=== PATIENT | male | born 1950 | race Caucasian/White ===

== ENCOUNTER 2022-07-05 02:39 | Outpatient (CLI) | payer MEDICARE, SELFPAY ==
--- OUTSIDE RECORDS SUMMARY | 2022-07-05 02:46 | XMS_ITS | Encounter Summary ---
:[address] [facility] Address [address] [place] [address] Care Team Providers Name Role Phone JanetSweetie bender Primary Care Provider Reason for Visit Auth/Cert Specialty Diagnoses / Procedures Referred By Contact Refer red To Contact Diagnoses Retinal detachment, right Procedures CT RPR COMPLEX RETINA DETACH VITRECT &MEMBRANE PEEL REPAIR, RETINAL DETACHMENT, COMPLEX, WITH VITRECTOMY AND MEMBRANE PEELING Referral ID Status Reason Start Date Expiration Date Visits Requ ested Visits Authorized [id number] 1 1 Encounter Details Date Type Department Care Team Description 02/11/2022 Hospital Encounter [facility] OR Jacky Blanchard MD [address] [place] [address] [address] [phone] [facility] Level [address] [place] [phone] (Wo rk) Social History Tobacco Use Types Packs/Day Years Used Date Smoking Tobacco: Never Smokeless Tobacco: Never Alcohol Use Standard Drinks/Week Comments Yes 3 (1 standard drink = 0.6 oz pure alcoho l) Sex Assigned at Date Recorded Not on file documented as of this encounter Last Filed Vital Signs Vital Sign Reading Time Taken Comments Blood Pressure 137/72 02/11/20221955 EDT Pulse - - Temperature 36.2 ??C (97.2 ??F) 02/11/20221955 EDT Respiratory Rate 10 02/11/20221955 EDT Oxygen Saturation 96% 02/11/20221955 EDT Inhaled Oxygen Concentration - - Weight 98.1 kg (216 lb 4.3 oz) 02/11/2022 1553 EDT Height 170.2 cm (5' 7) 02/11/2022 1553 EDT Body Mass Index 33.87 02/11/2022 1553 EDT documented in this encounter Functional Status Functional Status Response Date of Assessment Because of a physical, mental, or emotional condition, No 02/20/2018 does this person have difficulty doing errands alone such as visiting a doctor's office or shopping? Cognitive Status Response Date of Assessment Because of a physical, mental, or emotional condition, No 02/20/2018 does this person have serious difficulty concentrating, remembering, or making decisions? documented as of this encounter Discharge Instructions Discharge Instr - AVS First Jacky Kilpatrick MD - 02/11/2022 19:48 EDT Position face upright during the day Sleep right ear or left ear down, facing below horizon. Avoid sleeping head up or on your back. Avoid lifting weights over 50 pds, bending below the waist or straining for 7 days. Keep patch on the eye until tomorrow's follow-up appointment at 1 pm (5th floor ophthalmology clinic). documented in this encounter Medications at Time of Discharge Medication Sig Dispensed Refills Start Date End Date aspirin 81 mg EC tablet Take 81 mg by mouth 0 daily. lisinopriL (PRINIVIL) 30 mg Take 30 mg by mouth 0 tablet daily. metoprolol (LOPRESSOR) 25 Take 25 mg by mouth 0 mg tablet daily. pravastatin (PRAVACHOL) 40 Take 40 mg by mouth 0 mg tablet daily. documented as of this encounter Discharge Disposition Disposition Code Departure Means Destination Home or Self Care Wheelchair Home documented in this encounter H&P Notes Jacky Blanchard MD - 02/11/2022 1434 EDT In reviewing the chart, I see Po Matthews had a Pre-surgical History & Physical completed within the last 30 days. The following is a copy of that H&P note from the encounter associated with the physical. The note has been copied for review and update purposes within the scheduled perioperative encounter. Jacky Blanchard MD 02/11/2022 14:34 documented in this encounter Procedure Notes Jacky Blanchard MD - 02/11/20221947 EDTProcedure(s): CT RPR COMPLEX RETINA DETACH VITRECT &MEMBRANE PEEL Pre-Procedure Diagnose(s): Retinal detachment, right; Proliferative vitreoretinopathy of right eye; Pseudophakia, right eye Surgery date: 02/11/2022 Pre-operative diagnosis: Superior macula splitting retinal detachment, inferior proliferative vitreoretinopathy, psudophakia, right eye S/p 01/21/2022 PPV, SOR S/p 12/24/2021 CE+IOL s/p 10/10/2021 PPV, EL, SO for recurrent retinal detachment?? s/07/21/2021??SB, PPV, EL, SF6, STK for VH and RD/RT S/p 03/21/2021 and 03/28/2021 laser [address] for peripheral RD with 3 tears Post operative diagnosis: same Surgery: Pars plana vitrectomy, inferior PVR peel, superior retinectomy, fluid- air exchange, endolaser, 1000 CS silicone oil right eye Surgeon: Jacky Blanchard MD Anesthesia: Local RB with sedation Findings: Fibrotic retina overlying buckle and anterior to laser scars. Retinal detachment of fibrotic retina from 10: to 3 o'clock. Retina detachment of retinal posterior to buckle, without PVR, splitting the macula from 9 to 3 o'clock. Inferior PVR posterior to buckle at 7 o'clock. Technique: Patient was identified in the pre-operative area, informed consent having previously been obtained, discussing risks including pain, bleeding, high eye pressure, infection, inflammation, need for more surgery, loss of of vision and loss of eye. Operative eye was marked. Patient was then transported tothe operating room and laid in supine position. A time out was called to identify the patient, the operative site, and the procedure being performed. Local anesthesia was achieved with a retrobulbar block using 5 cc of lidocaine 2% and bupivacaine 0.75% 50/50 mix. The patient was positioned under the microscope and the eye was prepped with povidone iodine and draped in the usual sterile fashion for ophthalmic surgery. Appropriate exposure was achieved with the use of a lid speculum. Three trocars were inserted 3.0 mm from the limbus, one in the inferotemporal quadrant, one in the superotemporal quadrant, and one in the superonasal quadrant. The infusion port was placed through theinferotemporal trocar and visualized in the vitreous cavity prior to starting the infusion. There were no problems with the cannula placements. Vitrectomy was performed during previous surgeries and no residual vitreous was left. Careful examination of the retina through the Resight wide angle lens, using scleral indentation, revealed fibroticavascular retina overlying the buckle, anterior to the laser scars, over 360 degrees with a retinal detachment of this fibrotic retina from 10: to 3 o'clock. Retina was detached posterior to the buckle, without PVR, splitting the macula from 9 to 3 o'clock. A PVR band was visible posterior to buckle at 7 o'clock. This PVR band was peeled using the ILM forceps, removing the localized tenting of the retina there. The detached fibrotic avascular retina was removed by retinectomy with the vitreous cutter. A draining retinotomy was performed superior to the optic nerve. Fluid-air exchange was performed using a soft tip cannula, draining the subretinal fluid posterior to the buckle and obtaining retinalre-attachment. Endolaser was applied around the draining retinotomy and also 360 degrees posterior to the buckle and to the previous cerclage of laser scars. Air was then exchanged for 1000 CS siliconeoil. All 3 cannulas were removed, and each of the sclerotomies was closed using 7-0 vicryl sutures. Solumedrol and Ancef solutions were injected subconjunctivally. The lid speculum was removed, Maxitrol ointment was placed onto the eye. A patch and shield were placed for protection. The patient tolerated the procedure well without complication. Estimated Blood Loss Minimal. Total IV Fluids Per anesthesia documentation. Specimen(s) None. Complications None. documented in this encounter Nursing Notes Lisy Mathias RN - 02/11/2022 9124 EDT Preop Covid DOS screening questionnaire Please document by exception (only check those that apply). Have you had any of the following symptoms recently? None Yes Chronic ? Cough Shortness of breath or difficulty breathing Fever Chills Fatigue Muscle or body aches Severe Headache New loss of taste or smell Sore throat Congestion or runny nose Rash Nausea, vomiting, or diarrhea (rare in adults. More common in children) Have you had any exposure to a COVID + person since your covid test (in the last 5 days)? No Have you tested positive in the last 90 days for COVID by PCR and or home test? No Were you covid tested? No, N/A When: Results: Vaccinated: YES See admission vital signs documentation for admission temperature. documented in this encounter Plan of Treatment Upcoming Encounters Date Type Specialty Care Team Description 07/12/2022 Post-op Visit Ophthalmology Jacky Blanchard MD [address] [phone] (Wo rk) 07/18/2022 Office Visit Urology Jose Carlos Fisher MD [address] [phone] (Wo rk) documented as of this encounter Procedures Procedure Name Priority Date/Time Associated Diagnosis Comme nts REPAIR, RETINAL 02/11/2022 17:41 EDT Retinal detachmen t, DETACHMENT, COMPLEX, right WITH VITRECTOMY AND MEMBRANE PEELING Special Needs Ask if he wants ICG for the membrane peel documented in this encounter Visit Diagnoses Diagnosis Retinal detachment, right - Primary Unspecified retinal detachment documented in this encounter Admitting Diagnoses Diagnosis Retinal detachment, right Unspecified retinal detachment documented in this encounter Administered Medications Inactive Administered Medications - up to 3 most recent administrations Medication Order MAR Action Action Date Dose Rate Site cyclopentolate (CYCLOGYL) 1 % Given 02/11/2022 17:11 EDT 1 Drop ophthalmic solution 1 Drop 1 Drop, right eye, PRE-OP Q 5 MINUTES, 3 doses, Starting on Fri02/11/22 at 1651, Until Fri02/11/22 at 1711, Other, Routine, Preprocedure Given 02/11/2022 17:06 EDT 1 Drop Given 02/11/2022 17:01 EDT 1 Drop lactated ringers (LR) infusion Restarted 02/11/2022 17:52 EDT 30 mL/hr, intravenous, CONTINUOUS, Starting on Fri02/11/22 at 1615, Until Fri02/11/22 at 2210, Routine, Preprocedure New Bag 02/11/2022 16:26 EDT 30 mL/hr 30 mL/hr phenylephrine (MYDFRIN) 2.5 % ophthalmic Given 02/11/2022 17:12 EDT 1 Drop solution 1 Drop 1 Drop, right eye, PRE-OP Q 5 MINUTES, 3 doses, Starting on Fri02/11/22 at 1651, Until Fri02/11/22 at 1712, vitreoretinal surgery, Routine, Preprocedure Given 02/11/2022 17:07 EDT 1 Drop Given 02/11/2022 17:02 EDT 1 Drop documented in this encounter Discontinued Medications Medication Sig Discontinue Reason Start Date End Date ofloxacin (OCUFLOX) 0.3 % Place 1 Drop into 01/22/2022 02/11/2022 ophthalmic solution the right eye 4 times daily. prednisoLONE (PRED FORTE) Place 1 Drop into 01/22/2022 02/11/2022 1 % ophthalmic suspension the right eye 4 times daily. documented as of this encounter Active and Recently Administered Medications Times are shown in EDT. Continuous Medication Order 02/09/2022 02/10/2022 02/11/2022 lactated ringers (LR) infusion 1 626 (New Bag - Provider: Lisy Mathias RN)1751 (Paused - Provider: CHETAN Randall - Comment: Switch to gravity)175 (Restarted - Provider: CHETAN Randall)1940 (Anesthesia Volume Adju stment - Provider: CHETAN Randall) at 30 mL/hr, 30 mL/hr, intravenous, CONT INUOUS, Starting on Fri02/11/22 at 1615, Until Fri02/11/22 at 2210, Routine, Preprocedure PRN Medication Order 02/09/2022 02/10/2022 02/11/2022 Bacitracin Zinc-Polymyxin B 500-10,000 unit/gram ointment ointme nt (CANCELED) 1923 (Given - Provider: Jacky Blanchard MD - Comment: 1 application) PRN, Starting on Fri02/11/22 at 1924, Until Fri 2 at 1936, Intraprocedure balanced salt solution inrrigation solut ion (BSS PLUS) 500 mL, EPINEPHrine HCl (PF) (ADRENALIN) 0.5 mL irrigation (CANCELED) 1819 (Given - Provider: Jacky Blanchard MD - Comment: PART II-[id number] ------[id number]) PRN, Starting on Fri02/11/22 at 1820, Un til Fri02/11/22 at 193, Routine, Intraprocedure chondroitin-sodium hyaluronate (VISCOAT) ophthalmic solution (CA NCELED) 1819 (Given - Provider: Jacky Blanchard MD - Comment: [id number]) PRN, Starting on Fri02/11/22 at 1820, Un til Fri02/11/22 at 193, Routine, Intraprocedure cyclopentolate (CYCLOGYL) 1 % ophthalmic solution 1 Drop (COMPLE WYATT) 1700 (Given - Provider: Monica Dunham, STUART)170 (Given - Provider: Monica Dunham RN)171 (Given - Provider: Monica Dunham RN) 1 Drop, right eye, PRE-OP Q 5 MINUTES, 3 doses, Starting on Fri02/11/22 at 1651, Until Fri02/11/22 at 1711, Other, Routine, Preprocedure lidocaine 20 mg/mL (2 %) 5 mL, bupivacai ne (PF) (MARCAINE) 0.75 % (7.5 mg/mL) 5 mL (CANCELED) 1820 (Given - Provid er: Jacky Blanchard MD - Comment: [id number] -------[id number]) PRN, Starting on Fri02/11/22 at 1821, Un til Fri02/11/22 at 1937, Routine, Intraprocedure methylPREDNISolone sod suc(PF) (SOLU-MEDROL) injection (CANCELED ) 1919 (Given - Provider: Jacky Blanchard MD - Comment: [id number] 0.3ml given) PRN, Starting on Fri02/11/22 at 1920, Un til Fri02/11/22 at 1937, Routine, Intraprocedure phenylephrine (MYDFRIN) 2.5 % ophthalmic solution 1 Drop (COMPLE WYATT) 1701 (Given - Provider: Monica Dunham, STUART)170 (Given - Provider: Monica Dunham, RN)171 (Given - Provider: Monica Dunham, STUART) 1 Drop, right eye, PRE-OP Q 5 MINUTES, 3 doses, Starting on Fri02/11/22 at 1651, Until Fri02/11/22 at 1712, vitreoretinal surgery, Routine, Preprocedure sterile water (PF) 2.5 mL with ceFAZolin (ANCEF) 1 g (CANCELED) 1920 (Given - Provider: Jacky Blanchard MD - Comment: [id number]) PRN, Starting on Fri02/11/22 at 1831, Un til Fri02/11/22 at 1937, Routine, Intraprocedure documented in this encounter Orders Medications Ordered That Might Not Have Count Last Ord ered Date First Ordered Date Been Administered Bacitracin Zinc-Polymyxin B 500-10,000 2 unit/gram ointment ointment balanced salt solution inrrigation 02/11/2022 solution (BSS PLUS) 500 mL, EPINEPHrine HCl (PF) (ADRENALIN) 0.5 mL irrigation chondroitin-sodium hyaluronate (VISCOAT) 022 ophthalmic solution lidocaine (PF) 10 mg/mL (1 %) injection 2 2021 mg lidocaine 20 mg/mL (2 %) 5 mL, bupivacaine 02/11 (PF) (MARCAINE) 0.75 % (7.5 mg/mL) 5 mL methylPREDNISolone sod suc(PF) 02/11/2022 (SOLU-MEDROL) injection sterile water (PF) 2.5 mL with ceFAZolin 022 (ANCEF) 1 g Discharge Count Last Ordered Date First Ordered Date DISCHARGE PATIENT 02/11/2022 documented in this encounter Care Teams Sanitor Relationship Specialty Start Date End Date Janet, Sweetie PCP - General Family Medicine - Primary 12/18/21 04/09/22 [address] [facility] [place] [phone] documented as of this encounter
--- OUTSIDE RECORDS SUMMARY | 2022-07-05 02:46 | XMS_ITS | Encounter Summary ---
:1950 Author Organization [facility] Address [address] [place] [address] Care Team Providers Name Role Phone Yosi Graham [facility] Primary Care Provider [phone] Reason for Visit Auth/Cert Specialty Diagnoses / Procedures Referred By Contact Refer red To Contact Diagnoses Retinal detachment, right Retinal detachment, right [H33.21] Procedures ID VITRECTOMY,MECHANICAL Pars Plana Vitrectomy and Silicone Oil Removal, RIGHT EYE Referral ID Status Reason Start Date Expiration Date Visits Requ ested Visits Authorized [id number] 1 1 Encounter Details Date Type Department Care Team Description 05/15/2022 Surgery FA Operating Room Jacky Blanchard MD Pars Plana Vitrectomy [address] 111 [facility] and Silicone [place], [place] [id number] [place] [address], [place] Removal, RIGHT EYE [phone] Pavilion, Level 5 [[id number] (CPT??)] [place] [address] (Wo rk) Surgery Details Date/Time Status Location OR Service Patient Case Class Case Tr auma Class Type Case? 05/15/22 Posted [facility] Ophthalmology [facility] H - 0905 ASC OR 04 Outpatient Elective Surgery Panel 1 Procedure LRB Anes Op Region Wound Class Commen ts Pars Plana Vitrectomy Right Monitor Anesthesia Eye Class I/ Clean and Silicone Oil Care Removal, RIGHT EYE Surgeon Surgeon Role Service Panel Jacky Blanchard MD Primary Ophthalmology 1 documented in this encounter Social History Tobacco Use Types Packs/Day Years Used Date Smoking Tobacco: Never Smokeless Tobacco: Never Alcohol Use Standard Drinks/Week Comments Yes 3 (1 standard drink = 0.6 oz pure alcoho l) Sex Assigned at Date Recorded Not on file documented as of this encounter Last Filed Vital Signs Vital Sign Reading Time Taken Comments Blood Pressure 136/79 05/15/2022 1030 EDT Pulse - - Temperature 36.9 ??C (98.4 ??F) 05/15/2022 1030 EDT Respiratory Rate 13 05/15/2022 1035 EDT Oxygen Saturation 98% 05/15/2022 1035 EDT Inhaled Oxygen Concentration - - Weight 98.7 kg (217 lb 9.5 oz) 05/15/2022 0715 EDT Height 167.6 cm (5' 6) 05/15/2022 0715 EDT Body Mass Index 35.12 05/15/2022 0715 EDT documented in this encounter Functional Status [...] - AVS First Jacky Kilpatrick MD - 05/15/2022 10:36 EDT Keep patch on the eye until tomorrow's follow-up appointment Avoid lifting weights over 20 pds, bending below the waist or straining for 3 days. documented in this encounter Medications at Time [...] mg by mouth 0 mg tablet daily. prednisoLONE (PRED FORTE) 1 Place 1 Drop into 5 mL 3 0 02/25/2022 % ophthalmic suspension the right eye 4 times daily. documented as of this encounter Discharge Disposition Disposition Code Departure Means Destination Home or Self Penitentiary documented in this encounter H&P Notes Jacky Blanchard MD - 05/15/2022 0743 EDT In reviewing the chart, I see Po Matthews had a Pre-surgical History & Physical completed within the last 30 days. The following is a copy of that H&P note from the encounter associated with the physical. The note has been copied for review and update purposes within the scheduled perioperative encounter. 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 S/p 01/21/2022 PPV, SO removal right eye S/p 12/24/2021 CE+IOL s/p 10/10/2021 PPV, EL, SO for recurrent retinal detachment?? s/p12??SB, PPV, EL, SF6, STK for VH and RD/RT S/p 03/21/2021 and 03/28/2021 laser retinopexy for peripheral RD with 3 tears Post operative diagnosis: same Surgery: Pars plana vitrectomy, silicone oil removal, fluid-air exchange right eye Surgeon: Jacky Blanchard MD Anesthesia: Local RB with sedation Findings: peripheral proliferative vitreoretinopathy anterior to laser scars, overlying buckle, without retinal detachment, inferotemporal quadrant Technique: Patient was identified in the pre-operative [...] problems with the cannula placements. Vitrectomy was previously perfomred. The vitreous cavity was filed with silicone oil. SIlicone oil was extruded thought the cannulas, followed by three successive fluid-air and air-fluid exchanges. Careful examination of the retina through the Resight wide angle lens, using scleral indentation, revealed residual peripheral proliferative vitreoretinopathy anterior to laser scars, overlying the buckle, without retinal detachment, in the inferotemporal quadrant. Retina appeared attached with 360 laser barricade posterior to the buckle indentation. A last fluid-air exchange was performed using the vitreous cutter. All 3 cannulas were removed, and each of the sclerotomies was closed using 6-0 plain gut sutures. Intraocular pressure was ensured to be physiologic. Solumedrol and Ancef solutions were injected subconjunctivally. The lid speculum was removed, Maxitrol ointment was placed onto the eye. A patch and shield were placed for protection. The patient tolerated the procedure well without complication. Estimated Blood Loss Minimal. Total IV Fluids Per anesthesia documentation. Specimen(s) None. Complications None. documented in this encounter Plan of Treatment Upcoming Encounters Date Type Specialty Care Team Description 07/12/2022 Post-op Visit Ophthalmology Jacky Blanchard MD 111 [facility], [address] [place], [place] [phone] (Wo rk) 07/18/2022 Office Visit Urology Jose Carlos Fisher MD 111 [facility], [address] [place], [place] [phone] (Wo rk) documented as of this encounter Procedures Procedure Name Priority Date/Time Associated Diagnosis Comme nts VITRECTOMY, MECHANICAL, 05/15/2022 9:16 EDT Retinal de tachment, PARS PLANA APPROACH right documented in this encounter Visit Diagnoses Diagnosis Retinal detachment, right Unspecified retinal detachment documented in this encounter Administered Medications Inactive Administered Medications - up to 3 most recent administrations Medication Order MAR Action Action Date Dose Rate Site balanced salt solution Given 05/15/2022 10:00 EDT 500 mL Right Eye inrrigation solution (BSS PLUS) 500 mL, EPINEPHrine HCl (PF) (ADRENALIN) 0.5 mL irrigation PRN, Starting on Fri05/15/22 at 1000, Until Fri05/15/22 at 1028, Routine, Intraprocedure balanced salts (BSS) ophthalmic solution Given 05/15/2022 10:00 EDT 10 mL PRN, Starting on Fri05/15/22 at 1000, Until Fri05/15/22 at 1028, Routine, Intraprocedure cyclopentolate (CYCLOGYL) 1 % ophthalmic Given 05/15/2022 7:32 E DT 1 Drop solution 1 Drop 1 Drop, right eye, PRE-OP Q 5 MINUTES, 3 doses, Starting on Fri05/15/22 at 0722, Until Fri05/15/22 at 0732, Other, Routine, Preprocedure Given 05/15/2022 7:30 EDT 1 Drop Given 05/15/2022 7:28 EDT 1 Drop lactated ringers (LR) Continued by Anesthesia 05/15/2022 9:29 EDT 30 mL/hr infusion 30 mL/hr, intravenous, CONTINUOUS, Starting on Fri05/15/22 at 0745, Until Fri05/15/22 at 1253, Routine, Preprocedure New Bag 05/15/2022 7:31 EDT 30 mL/hr 30 mL/hr lactated ringers (LR) infusion at 75 mL/hr, intravenous, CONTINUOUS, St arting on Fri05/15/22 at 1015, Until Fri05/15/22 at 1253, Routine, Recovery (only) lidocaine 20 mg/mL (2 %) 5 mL, Given 05/15/2022 10:01 EDT 10 mL Right Eye bupivacaine (PF) (MARCAINE) 0.75 % (7.5 mg/mL) 5 mL PRN, Starting on Fri05/15/22 at 1001, Until Fri05/15/22 at 1028, Routine, Intraprocedure methylPREDNISolone sod suc(PF) Given 05/15/2022 10:02 EDT 10 mg Right Eye (SOLU-MEDROL) injection PRN, Starting on Fri05/15/22 at 1002, Until Fri05/15/22 at 1028, Routine, Intraprocedure twwtszzx-cgujuuhrr-drqwgdkuztelf (MAXITROL) Given 05/15/2022 10: 02 EDT 1 mL ophthalmic ointment PRN, Starting on Fri05/15/22 at 1002, Until Fri05/15/22 at 1028, Intraprocedure phenylephrine (MYDFRIN) 2.5 % ophthalmic Given 05/15/2022 7:37 E DT 1 Drop solution 1 Drop 1 Drop, right eye, PRE-OP Q 5 MINUTES, 3 doses, Starting on Fri05/15/22 at 0722, Until Fri05/15/22 at 0737, vitreoretinal surgery, Routine, Preprocedure Given 05/15/2022 7:35 EDT 1 Drop Given 05/15/2022 7:34 EDT 1 Drop povidone-iodine 5 % ophthalmic solution Given 05/15/2022 10:02 EDT 1 Drop PRN, Starting on Fri05/15/22 at 1002, Until Fri05/15/22 at 1028, Routine, Intraprocedure sterile water (PF) 2.5 mL with Given 05/15/2022 10:03 EDT 2.5 mL Right Eye ceFAZolin (ANCEF) 1 g PRN, Starting on Fri05/15/22 at 1001, Until Fri05/15/22 at 1028, Routine, Intraprocedure Given 05/15/2022 10:01 EDT 0.3 mL Right E ye documented in this encounter Discontinued Medications Medication Sig Discontinue Reason Start Date End Date diazePAM (VALIUM) 10 mg One tab 1 hour and Therapy completed 202105/15/2022 tablet then the second 10 minutes before your scheduled appt. documented as of this encounter Active and Recently Administered Medications Times are shown in EDT. Continuous Medication Order 05/13/2022 05/14/2022 05/15/2022 lactated ringers (LR) infusion 0 731 (New Bag - Provider: Mandi Sesay RN)0732 (Not Given - Provider: Carlton Torres RN - Reason: Other)0929 (Continued by Anesthesia - Provider: Eduardo Parkinson CRNA)1036 (Anesthesia Volume Adjustment - Provider: Eduardo Parkinson CRNA) at 30 mL/hr, 30 mL/hr, intravenous, CONT INUOUS, Starting on Fri05/15/22 at 0745, Until Fri05/15/22 at 1253, Routine, Preprocedure lactated ringers (LR) infusion 1 023 (Canceled Entry - Provider: Jigna Scott RN) at 75 mL/hr, intravenous, CONTINUOUS, St arting on Fri05/15/22 at 1015, Until Fri05/15/22 at 1253, Routine, Recovery (only) PRN Medication Order 05/13/2022 05/14/2022 05/15/2022 balanced salt solution inrrigation solut ion (BSS PLUS) 500 mL, EPINEPHrine HCl (PF) (ADRENALIN) 0.5 mL irrigation (CANCELED) 1000 (Given - Provider: Jacky Blanchard MD) PRN, Starting on Fri05/15/22 at 1000, U ntil Fri05/15/22 at 1028, Routine, Intraprocedure balanced salts (BSS) ophthalmic solution (CANCELED) 1000 (Given - Provider: Jacky Blanchard MD) PRN, Starting on Fri05/15/22 at 1000, U ntil Fri05/15/22 at 1028, Routine, Intraprocedure cyclopentolate (CYCLOGYL) 1 % ophthalmic solution 1 Drop (COMPLE WYATT) 0728 (Given - Provider: Carlton Torres RN)0730 (Given - Provider: Carlton Torres RN)0732 (Given - Provider: Carlton Torres RN) 1 Drop, right eye, PRE-OP Q 5 MINUTES, 3 doses, Starting on Fri05/15/22 at 0722, Until Discontinued, Other, Routine, Preprocedure lidocaine 20 mg/mL (2 %) 5 mL, bupivacai ne (PF) (MARCAINE) 0.75 % (7.5 mg/mL) 5 mL (CANCELED) 1001 (Given - Provid er: Jacky Blanchard MD) PRN, Starting on Fri05/15/22 at 1001, U ntil Fri05/15/22 at 1028, Routine, Intraprocedure methylPREDNISolone sod suc(PF) (SOLU-MEDROL) injection (CANCELED ) 1002 (Given - Provider: Jacky Blanchard MD) PRN, Starting on Fri05/15/22 at 1002, U ntil Fri05/15/22 at 1028, Routine, Intraprocedure gmxoabbi-amejucugz-diboqzggbvjyb (MAXITROL) ophthalmic ointment (CANCELED) 1002 (Given - Provider: Jacky Blanchard MD) PRN, Starting on Fri05/15/22 at 1002, U ntil Fri05/15/22 at 1028, Intraprocedure phenylephrine (MYDFRIN) 2.5 % ophthalmic solution 1 Drop (COMPLE WYATT) 0734 (Given - Provider: Carlton Torres, RN)0735 (Given - Provider: Carlton Torres, RN)0737 (Given - Provider: Carlton Torres, RN) 1 Drop, right eye, PRE-OP Q 5 MINUTES, 3 doses, Starting on Fri05/15/22 at 0722, Until Discontinued, vitreoretinal surgery, Routine, Preprocedure povidone-iodine 5 % ophthalmic solution (CANCELED) 1002 (Given - Provider: Jacky Blanchard MD - Comment: used as prep solution) PRN, Starting on Fri05/15/22 at 1002, U ntil Fri05/15/22 at 1028, Routine, Intraprocedure sterile water (PF) 2.5 mL with ceFAZolin (ANCEF) 1 g (CANCELED) 1001 (Given - Provider: Jacky Blanchard MD)1003 (Given - Provider: Jacky Blanchard MD) PRN, Starting on Fri05/15/22 at 1001, U ntil Fri05/15/22 at 1028, Routine, Intraprocedure documented in this encounter Orders Medications Ordered That Might Not Have Count Last Ord ered Date First Ordered Date Been Administered acetaminophen (TYLENOL) solution unit dose 1 05/15 cup 995 mg acetaminophen (TYLENOL) tablet 1,000 mg 1 05/15/20 atropine 0.1 mg/mL syringe 0.5 mg 1 05/15/2022 fentaNYL citrate (PF) injection 25-50 mcg 1 2021 lactated ringers (LR) infusion 1 05/15/2022 lidocaine (PF) 10 mg/mL (1 %) injection 2 1 2021 mg naloxone (NARCAN) injection 0.2 mg 1 05/15/2022 ondansetron (PF) (ZOFRAN) injection 4 mg 1 022 Discharge Count Last Ordered Date First Ordered Date DISCHARGE PATIENT 1 05/15/2022 documented in this encounter Care Teams Health Concierge Relationship Specialty Start Date End Date Yosi Graham, RPA PCP - General Family Medicine - Primary 04/10/[address] [address] documented as of this encounter
--- OUTSIDE RECORDS SUMMARY | 2022-07-05 02:46 | XMS_ITS | Encounter Summary ---
:1950 Author Organization [facility] Address [address] [place] [address] Care Team Providers Name Role Phone JanetSweetie bender Primary Care Provider Reason for Visit Reason Comments Post-OP Follow Up Encounter Details Date Type Department Care Team Description 02/12/2022 Post-op Visit [facility] Jacky Blanchard MD 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 (Primary Dx); Ophthalmology - Main [address] [place] [address] ferative vitreoretinopathy of [facility] [address] [place] [id number] [place] [address], [place] [phone] Social History Tobacco Use Types Packs/Day Years Used Date Smoking Tobacco: Never Smokeless Tobacco: Never Alcohol Use Standard Drinks/Week Comments Yes 3 (1 standard drink = 0.6 oz pure alcoho l) Sex Assigned at Date Recorded Not on file documented as of this encounter Functional Status Functional Status Response [...] making decisions? documented as of this encounter Progress Notes Jacky Blanchard MD - 02/12/2022 1300 EDT Chief Complaint Patient presents with ??? Post-OP Follow Up Comments Pt. Here for one day post op right eye RD repair right eye s/p vitrectomy, laser, and MP on 02/11/22 Eye pain right eye 3/10, no other ocular complaints HPI Location: Right eye Pain: 3.0 Quality: Blurry Severity: Moderate Duration: Days Timing: Constant Lasts: Continuous Context: Pt. Here for one day post op right eye RD repair right eye s/p vitrectomy, laser, and MP on02/11/22 Modifying factors: DFE Associated Signs & Symptoms: Blurry vision Visual Fluctuations: Floaters Attestation: Base Eye Exam Visual Acuity (Snellen - Linear) Right Left Dist sc 20/300 +1 Dist cc 20/20 -2 Dist ph sc 20/150 +1 Tonometry (Applanation, 13:52) Right Left Pressure 11 Pupils Dark Light Shape React APD Right 5 Pharm dilated Left 3 2 Round Brisk None Neuro/Psych Oriented x3: Yes Mood/Affect: Normal Dilation Right eye: Tropicamide 1%, Phenylephrine 2.5% @ 13:53 Slit Lamp and Fundus Exam Slit Lamp Exam Right Left Lids/Lashes Normal Conjunctiva/Sclera White and quiet Cornea Clear Anterior Chamber Deep with fibrin Deep Iris Dilated Lens Posterior chamber intraocular lens Vitreous >90 % silicone oil fill Fundus Exam Right Left Disc 2+ Pallor Macula attached Vessels Normal Periphery Retina is attached with 360 last scars posterior to scleral buckle Please refer to large retinal drawing. IMAGING: DIAGNOSES: 1. 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 Proliferative vitreoretinopathy of right eye Assessment Retina attached right eye S/p 02/11/2022 PPVx, inferior PVR peel, superior retinectomy, EL, SO for recurrent RRD S/p 01/21/2022 PPV, SO removal right eye S/p 12/24/2021 CE+IOL s/p 10/10/2021 PPV, EL, SO for recurrent retinal detachment?? s/07/21/2021??SB, PPV, EL, SF6, STK for VH and RD/RT S/p 03/21/2021 and 03/28/2021 laser retinopexy for peripheral RD with 3 tears Normal IOP No sign of infection Avoid dino bending, lifting or straining Avoid swimming, No pools, hot tubs or kaba water Position upright during the day and right or left ear down at night time Start Ofloxacin QID right eye, Prednisolone Q2H while awake right eye Follow up in 1 week or PRN I have reviewed the past medical, family, social and surgical history. I have reviewed the meds, allergies, and problem list. I performed my own HPI and reviewed the ROS. I personally completed the exam. The patient was instructed to call our office or go to emergency room if worse vision, worse symptoms, or new/other concerns arise. Jacky Blanchard MD I am scribing for Dr. Jacky Blanchard MD while he is personally performing the service. 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 documented in this encounter Eye Exam Visual Acuity (Snellen - Linear) Right eye Left eye Dist sc 20/300 +1 Dist cc 20/20 -2 Dist ph sc 20/150 +1 Tonometry (Applanation, 13:52) Right eye Left eye Pressure 11 Pupils Dark Light Shape React APD Right eye 5 Pharm dilated Left eye 3 2 Round Brisk None Neuro/Psych Oriented x3: Yes Mood/Affect: Normal Dilation Right eye: Tropicamide 1%, Phenylephrine 2.5% @ 13:53 Slit Lamp Exam Right eye Left eye Lids/Lashes Normal Conjunctiva/Sclera White and quiet Cornea Clear Anterior Chamber Deep with fibrin Deep Iris Dilated Lens Posterior chamber intraocular lens Vitreous >90 % silicone oil fill Fundus Exam Right eye Left eye Disc 2+ Pallor Macula attached Vessels Normal Periphery Retina is attached with 360 last scars p osterior to scleral buckle Care Teams Teletype Installer Relationship Specialty Start Date End Date Sweetie Gonzales PCP - General Family Medicine - Primary 12/18/21 04/09/22 [address] [facility] [place] [phone] documented as of this encounter
--- OUTSIDE RECORDS SUMMARY | 2022-07-05 02:46 | XMS_ITS | Encounter Summary ---
:1950 Author Organization [facility] Address [address] [place] [address] Care Team Providers Name Role Phone JanetSweetie bender Primary Care Provider Reason for Visit Reason Onset Date Comments Appointment Related 02/12/2022 Encounter Details Date Type Department Care Team Description 02/12/2022 Telephone [facility] Jose Carlos Fisher ntment Related Urology - [facility] Jeremy Sierra MD [address] [facility] [address] [phone] [facility] 5 [place] [phone] (Wo rk) Social History Tobacco [...] making decisions? documented as of this encounter Miscellaneous Notes Telephone Encounter - Leonarda Malone - 02/12/2022 0729 EDT Pt LM we was discharged yesterday from having eye surgery and needs to reschedule Appt for today 02/12/2022 documented in this encounter Plan of Treatment Upcoming Encounters Date Type Specialty Care Team Description 07/12/2022 Post-op Visit Ophthalmology Jacky Blanchard MD 111 [facility] 5 [place], [place] [phone] (Wo rk) 07/18/2022 Office Visit Urology Jose Carlos Fisher MD [address] [phone] (Wo rk) documented as of this encounter Visit Diagnoses Not on filedocumented in this encounter Care Teams Center Administrator Relationship Specialty Start Date End Date Sweetie Gonzales PCP - General Family Medicine - Primary 12/18/21 04/09/[address] [place] [address] [place] [phone] documented as of this encounter
--- OUTSIDE RECORDS SUMMARY | 2022-07-05 02:46 | XMS_ITS | Encounter Summary ---
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 Currently taking PF right QID. No eye pain, vision seems little better x past few days. No flashes or floaters. HPI Location: Right eye Pain: 0 - No pain Quality: Blurry Severity: Mild Duration: Weeks Timing: Constant Lasts: Continuous Context: Return in about 1 week (around 05/30/2022) for OCT for recurrent RD repair right eye. Modifying factors: Currently taking PF right QID. Associated Signs & Symptoms: No eye pain, vision seems little better x past few days. No flashesor floaters. Visual Fluctuations: None Attestation: Base Eye Exam Visual Acuity (Snellen - Linear) Right Left Dist cc 20/80 -2 20/25 Dist ph cc 20/70 +1 Correction: Glasses Tonometry (Applanation, 8:11) Right Left Pressure 16 15 Pupils Dark Light Right 3 2.5 Left 3 2.5 Neuro/Psych Oriented x3: Yes Mood/Affect: Normal Dilation Right eye: Phenylephrine 2.5%, Tropicamide 1% @ 8:11 Slit Lamp and Fundus Exam Slit Lamp Exam Right Left Lids/Lashes Normal Normal Conjunctiva/Sclera White and quiet White and quiet Cornea Descemet's folds Clear Anterior Chamber rare Trace Cell Deep and quiet Iris Dilated and temporal synechiae @ 6 & 10 Round and reactive Lens Posterior chamber intraocular lens, PCO 1+ Cortical cataract Vitreous clear s/p PPV clear Fundus Exam Right Left Disc 2+ Pallor Macula Epiretinal membrane, Macular edema Periphery attached over SB with 360 laser, inferior PVR posterior to buckle surrounded by laser scars. Please refer to large retinal drawing. IMAGING: OCT, Retina - OU - Both Eyes Right Eye Quality was good. Progression has worsened. Findings include intraretinal fluid, epiretinal membrane, lamellar hole. Left Eye Quality was good. Progression has been stable. Findings include normal observations. 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 Macular edema OCT, RETINA - OU - BOTH EYES Assessment Retina attached S/p 05/15/2022 PPV, SOR, FAX?? S/p 02/11/2022 PPVx, inferior PVR peel, superior retinectomy,??EL,??SO for recurrent RRD?? S/p 01/21/2022 PPV, SO removal right eye S/p 12/24/2021 CE+IOL s/p 10/10/2021 PPV, EL, SO for recurrent retinal detachment?? s/p12??SB, PPV, EL, SF6, STK for VH and RD/RT S/p 03/21/2021 and 03/28/2021 laser retinopexy for peripheral RD with [address] right eye We will monitor anterior PVR over buckle barricaded by laser. +/- Epiciliary membrane? No hypotony Some macular edema post-op - not visually significant for now. May require NSAIDs down the road. ?? Continue Prednisolone drops QID right eye Return in 2 weeks I have reviewed the past medical, family, [...] while he is personally performing the service. DWIGHT Lira (Scribe) documented in this encounter Plan of Treatment Upcoming Encounters Date Type Specialty Care Team Description 07/12/2022 Post-op Visit Ophthalmology Jacky Blanchard MD [address] [phone] (Wo rk) 07/18/2022 Office Visit Urology Jose Carlos Fisher MD [address] [phone] (Wo rk) documented as of this encounter Procedures Procedure Name Priority Date/Time Associated Diagnosis Comme nts OCT, RETINA - OU - Routine 05/30/2022 9:06 Chorioretinal scar Results for this BOTH EYES EDT after retinal procedure are in detachment surge ry the results Macular edema section. documented in this encounter Results OCT, RETINA - OU - BOTH EYES (05/30/2022 9:06 EDT) Specimen (Source) Anatomical Location Collection Method / Collectio n Time Received Time / Laterality Volume Narrative [facility] - 05/30/2022 9:57 ED T Right Eye Quality was good. Progression has worsen ed. Findings include intraretinal fluid, epiretinal membrane, lamellar hol e. Left Eye Quality was good. Progression has been s table. Findings include normal observations. 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 - Primary Macular edema Retinal edema documented in this encounter Eye Exam Visual Acuity (Snellen - Linear) Right eye Left eye Dist cc 20/80 -2 20/25 Dist ph cc 20/70 +1 Correction: Glasses Tonometry (Applanation, 8:11) Right eye Left eye Pressure 16 15 Pupils Dark Light Right eye 3 2.5 Left eye 3 2.5 Neuro/Psych Oriented x3: Yes Mood/Affect: Normal Dilation Right eye: Phenylephrine 2.5%, Tropicami de 1% @ 8:11 Slit Lamp Exam Right eye Left eye Lids/Lashes Normal Normal Conjunctiva/Sclera White and quiet White and quiet Cornea Descemet's folds Clear Anterior Chamber rare Trace Cell Deep and quiet Iris Dilated and temporal synechiae @ 6 & 10 Round and reactive Lens Posterior chamber intraocular lens, PCO 1+ Cortical cataract Vitreous clear s/p PPV clear Fundus Exam Right eye Left eye Disc 2+ Pallor Macula Epiretinal membrane, Macular edema Periphery attached over SB with 360 laser, inferio r PVR posterior to buckle surrounded by laser scars. Care Teams Java Web Services Developer Relationship Specialty Start Date End Date Yosi Graham, RPA PCP - General Family Medicine - Primary 04/10/[address] [phone] documented as of this encounter
--- OUTSIDE RECORDS SUMMARY | 2022-07-05 02:46 | XMS_ITS | Encounter Summary ---
:1950 Author Organization [facility] Address [address] [place] [address] Care Team Providers Name Role Phone Yosi Graham [facility] Primary Care Provider [phone] Reason for Visit Auth/Cert Specialty Diagnoses / Procedures Referred By Contact Refer red To Contact Diagnoses Retinal detachment, right Retinal detachment, right [H33.21] Procedures FL VITRECTOMY,MECHANICAL [place] Vitrectomy and Silicone Oil Removal, RIGHT EYE Referral ID Status Reason Start Date Expiration Date Visits Requ ested Visits Authorized [id number] 1 1 Encounter Details Date Type Department Care Team Description 05/15/2022 Hospital Encounter [facility] Operating Room Jacky Blanchard MD [address] [phone] [facility] [address] [place] [phone] (Wo rk) Social History Tobacco Use Types Packs/Day Years Used Date Smoking Tobacco: Never Smokeless Tobacco: Never Alcohol Use Standard Drinks/Week Comments Yes 3 (1 standard drink = 0.6 oz pure alcoho l) Sex Assigned at Date Recorded Not on file documented as of this encounter Last Filed Vital Signs Vital Sign Reading Time Taken Comments Blood Pressure 132/75 05/15/2022 1045 EDT Pulse - - Temperature 36.9 ??C (98.4 ??F) 05/15/2022 1045 EDT Respiratory Rate 17 05/15/2022 1045 EDT Oxygen Saturation 99% 05/15/2022 1045 EDT Inhaled Oxygen Concentration - - Weight 98.7 kg (217 lb 9.5 oz) 05/15/2022714 EDT Height 167.6 cm (5' 6) 05/15/202215 EDT Body Mass Index 35.12 05/15/202215 EDT documented in this encounter Functional Status [...] Code Departure Means Destination Home or Self Custodial documented in this encounter H&P Notes Jacky [...] Jacky Blanchard MD - 05/15/2022 1037 EDTProcedure(s): FL VITRECTOMY,MECHANICAL Pre-Procedure Diagnose(s): Chorioretinal scar after retinal [...] Post-op Visit Ophthalmology Jacky Blanchard MD [address] [phone] (Wo angel) 07/18/2022 Office Visit Urology Jose Carlos Fisher MD [address] [phone] (Wo angel) documented as of this encounter Procedures Procedure Name Priority Date/Time Associated Diagnosis Comme nts VITRECTOMY, MECHANICAL, 05/15/2022 9:16 EDT Retinal de tachment, PARS PLANA APPROACH right documented in this encounter Visit Diagnoses Diagnosis 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 - Primary documented in this encounter Administered Medications Inactive Administered Medications - up to 3 most recent administrations Medication Order MAR Action Action Date Dose Rate Site cyclopentolate (CYCLOGYL) 1 % Given 05/15/2022 7:32 EDT 1 Drop ophthalmic solution 1 Drop [...] Until Fri05/15/22 at 1253, Routine, Recovery (only) phenylephrine (MYDFRIN) 2.5 % ophthalmic Given 05/15/2022 7:37 E DT 1 Drop solution 1 Drop 1 Drop, right eye, PRE-OP Q 5 MINUTES, 3 doses, Starting on Fri05/15/22 at 0722, Until Fri05/15/22 at 0737, vitreoretinal surgery, Routine, Preprocedure Given 05/15/2022 7:35 EDT 1 Drop Given 05/15/2022 7:34 EDT 1 Drop documented in this encounter [...] U ntil Fri05/15/22 at 1028, Routine, Intraprocedure ufksifuy-ugcyltine-iotohcdfsovwp (MAXITROL) ophthalmic ointment (CANCELED) 1002 (Given - Provider: Jacky Blanchard MD) PRN, Starting on Fri05/15/22 at 1002, U ntil Fri05/15/22 at 1028, Intraprocedure phenylephrine (MYDFRIN) 2.5 % ophthalmic solution 1 Drop (COMPLE WYATT) 0734 (Given - Provider: Carlton Torres, RN)0735 (Given - Provider: Carlton Torres, RN)0737 (Given - Provider: Carlton Torres RN) 1 [...] 0.1 mg/mL syringe 0.5 mg 1 05/15/2022 balanced salt solution inrrigation 1 05/15/2022 solution (BSS PLUS) 500 mL, EPINEPHrine HCl (PF) (ADRENALIN) 0.5 mL irrigation balanced salts (BSS) ophthalmic solution 1 fentaNYL citrate (PF) injection 25-50 mcg 1 2021 lactated ringers (LR) infusion 1 05/15/2022 lidocaine (PF) 10 mg/mL (1 %) injection 2 1 2021 mg lidocaine 20 mg/mL (2 %) 5 mL, bupivacaine 1 05/15 (PF) (MARCAINE) 0.75 % (7.5 mg/mL) 5 mL methylPREDNISolone sod suc(PF) 1 05/15/2022 (SOLU-MEDROL) injection naloxone (NARCAN) injection 0.2 mg 1 05/15/2022 naewrmng-vdqbiligs-htycxkzkkmbua 1 05/15/2022 (MAXITROL) ophthalmic ointment ondansetron (PF) (ZOFRAN) injection 4 mg 1 povidone-iodine 5 % ophthalmic solution 1 05/15/20 sterile water (PF) 2.5 mL with ceFAZolin 1 (ANCEF) 1 g Discharge Count Last Ordered Date First Ordered Date DISCHARGE PATIENT 1 05/15/2022 documented in this encounter Care Teams Roof Fitter Relationship Specialty Start Date End Date Yosi Graham, RPA PCP - General Family Medicine - Primary 04/10/[address] [place] [phone] documented as of this encounter
--- OUTSIDE RECORDS SUMMARY | 2022-07-05 02:46 | XMS_ITS | Encounter Summary ---
:1950 Author Organization [facility] Address [address] [place] [address] Care Team Providers Name Role Phone Yosi Graham [facility] Primary Care Provider [phone] Reason for Referral Radiology Services (Routine/Next Available) - Authorization Not Required Specialty Diagnoses / Procedures Referred By Contact Refer red To Contact Radiology Diagnoses Malignant neoplasm of prostate (HCC-CMS) (HCC) Jose Carlos Fisher MD [facility] Procedures MR PROSTATE W WO CONTRAST [address] [phone] Referral ID Status Reason Start Expiration Visits Visits Date Date Requested Authorized [id number] Authorization Not 02/27/2022 1 1 Required Reason for Visit Radiology Services (Routine/Next Available) - Authorization Not Required Specialty Diagnoses / Procedures Referred By Contact Refer red To Contact Radiology Diagnoses Malignant neoplasm of prostate (HCC-CMS) (HCC) Jose Carlos Fisher MD [facility] Procedures MR PROSTATE W WO CONTRAST [address] [phone] Referral ID Status Reason Start Expiration Visits Visits Date Date Requested Authorized [id number] Authorization Not 02/27/2022 1 1 Required Encounter Details Date Type Department Care Team Description 04/13/2022 Hospital Encounter Medical Center Maligna nt neoplasm of Radiology [facility] - Main prostat e ([facility]) [place] ([facility]) [address] [place], [place] [phone] Social History Tobacco Use Types Packs/Day Years [...] making decisions? documented as of this encounter Medications at Time of Discharge Medication Sig Dispensed Refills Start Date End Date aspirin 81 mg EC tablet Take 81 mg by mouth 0 daily. lisinopriL (PRINIVIL) 30 Take 30 mg by mouth 0 mg tablet daily. metoprolol (LOPRESSOR) Take 25 mg by mouth 0 25 mg tablet daily. pravastatin (PRAVACHOL) Take 40 mg by mouth 0 40 mg tablet daily. prednisoLONE (PRED Place 1 Drop into the 5 mL 3 2021 FORTE) 1 % ophthalmic right eye 4 times suspension daily. diazePAM (VALIUM) 10 mg One tab 1 hour and 2 Tablet 0 02/0205/15/2022 tablet then the second 10 minutes before your scheduled appt. documented as of this encounter Discharge Disposition Disposition Code Departure Means Destination Home or Self Care documented in this encounter Plan of Treatment Upcoming Encounters Date Type Specialty Care Team Description 07/12/2022 Post-op Visit Ophthalmology Jacky Blanchard MD [address] [phone] (Wo rk) 07/18/2022 Office Visit Urology Jose Carlos Fisher MD [address] [phone] (Wo angel) documented as of this encounter Procedures Procedure Name Priority Date/Time Associated Diagnosis Comme nts MR PROSTATE W WO Routine 04/13/2022 8:26 EDT Malignant neoplas m Results for this CONTRAST of prostate procedure are i n (HCC-CMS) (HCC) the results section. documented in this encounter Results MR PROSTATE W WO CONTRAST (04/13/2022 8:26 EDT) Anatomical Region Laterality Modality Body, Pelvis Magnetic Resonance Specimen (Source) Anatomical Collection Method Collection Time Re ceived Time Location / / Volume Laterality 04/15/2022 13:37 EDT Impressions 04/15/2022 13:37 EDT Focal diffusion abnormality measuring up to 1.4 cm in the posterior left peripheral zone is unchanged from one year prior, PI RADS 4 (high likelihood of prostate cancer). I have personally reviewed the images an d the above interpretation and agree with the findings. Narrative 04/15/2022 13:37 EDT MR PROSTATE W WO CONTRAST ??04/13/2022 7:30 AM Clinical history/Comments: Prostate cancer, bx 06/2017 with francisco javier 6, PSA 11 <- 7.4 Comparison: MR prostate 04/14/2021 Technique: Multiplanar and multiparametric MR seque nces of the pelvis were performed prior to and after intravenous administration of contrast. Perfusion assessed with DynaCAD software. Findings: Prostate: Volume: 38 cc PSA density: 0.29 ng/cc T1-weighted imaging: No concerning T1 si gnal abnormality. Transition Zone: There is heterogenous T 2 signal in the transition zone with multiple partially circumscribed nodules. No suspicious T2 signal abnormality. Peripheral Zone: The focus of restricted diffusion in the posterior left peripheral zone from the mid gland to the base measuring 1.4 cm on maximal transverse dimension (ADC #268) is unchanged from one year prior. No additional suspicious are as of restricted diffusion in the peripheral zone. Seminal vesicles: Normal. Extracapsular extension: None. Neurovascular bundle invasion: None. Bladder: Trabeculation suggestive of chr onic outlet obstruction. Lymph nodes: No lymphadenopathy. Bones: No suspicious bone marrow signal abnormality. Incidental Findings: ?? None. Procedure Note Jefe Baugh MD - 022 MR PROSTATE W WO CONTRAST 04/13/2022 7:30 AM Clinical history/Comments: Prostate cancer, bx 06/2017 with francisco javier 6, PSA 11 <- 7.4 Comparison: MR prostate 04/14/2021 Technique: Multiplanar and multiparametric MR seque nces of the pelvis were performed prior to and after intravenous administration of contrast. Perfusion assessed with [employer] software. Findings: Prostate: Volume: 38 cc PSA density: 0.29 ng/cc T1-weighted imaging: No concerning T1 si gnal abnormality. Transition Zone: There is heterogenous T 2 signal in the transition zone with multiple partially circumscribed nodules. No suspicious T2 signal abnormality. Peripheral Zone: The focus of restricted diffusion in the posterior left peripheral zone from the mid gland to the base measuring 1.4 cm on maximal transverse dimension (ADC #268) is unchanged from one year prior. No additional suspicious areas of restricte d diffusion in the peripheral zone. Seminal vesicles: Normal. Extracapsular extension: None. Neurovascular bundle invasion: None. Bladder: Trabeculation suggestive of chr onic outlet obstruction. Lymph nodes: No lymphadenopathy. Bones: No suspicious bone marrow signal abnormality. Incidental Findings: None. IMPRESSION Focal diffusion abnormality measuring up to 1.4 cm in the posterior left peripheral zone is unchanged from one year prior, PI RADS 4 (high likelihood of prostate cancer). I have personally reviewed the images an d the above interpretation and agree with the findings. Jose Carlos Fisher MD IMG MRI ORDERABLES documented in this encounter Visit Diagnoses Diagnosis Malignant neoplasm of prostate (HCC-CMS) (HCC) Malignant neoplasm of prostate documented in this encounter Administered Medications Inactive Administered Medications - up to 3 most recent administrations Medication Order MAR Action Action Date Dose Rate Site gadoterate meglumine solution 1-30 mL Given 04/13/2022 8:12 EDT 19 mL 1-30 mL, intravenous, Once in imaging, 1 dose, Starting on 04/13/22 at 0725, Until 04/13/22 at 0812, Routine, Imaging Protocol Orders documented in this encounter Orders Medications Ordered That Might Not Have Count Last Ord ered Date First Ordered Date Been Administered gadoterate meglumine solution 1-30 mL 1 04/13/2022 documented in this encounter Care Teams Leather Coverer Relationship Specialty Start Date End Date Yosi Graham, RPA PCP - General Family Medicine - Primary 04/10/[address] [phone] documented as of this encounter
--- OUTSIDE RECORDS SUMMARY | 2022-07-05 02:46 | XMS_ITS | Encounter Summary ---
:1950 Author Organization [facility] Address [address] [place] [address] Care Team Providers Name Role Phone Yosi Graham EDER Primary Care Provider [phone] Reason for Visit Reason Comments Post-OP Follow Up Encounter Details Date Type Department Care Team Description 04/19/2022 Office Visit [facility] Jacky Blanchard MD Ophthalmology - [address], [address], [address] [place], [place] [id number] [place] [address] [phone] (Wo rk) Social History Tobacco Use [...] encounter Progress Notes Jacky Blanchard MD - 04/19/2022 0800 EDT Chief Complaint Patient presents with ??? Post-OP Follow Up Comments Recurrent RD repair right eye HPI Location: Right eye Pain: 0 - No pain Quality: Blurry Severity: Moderate Duration: Months Timing: Constant Lasts: Continuous Context: Recurrent RD repair right eye Modifying factors: s/p PPVx, PVR peel, retinectomy EL and SO Associated Signs & Symptoms: Vision stable both eyes. No pain no new F.F Visual Fluctuations: Attestation: Base Eye Exam Visual Acuity (Snellen - Linear) Right Left Dist cc 20/150 -2 20/30 -2 Dist ph cc 20/70 -2 Correction: Glasses Tonometry (Applanation, 8:20) Right Left Pressure 17 20 Pupils Pupils Right PERRL Left PERRL Neuro/Psych Oriented x3: Yes Mood/Affect: Normal Dilation Both eyes: Tropicamide 1%, Phenylephrine 2.5% @ 8:20 Slit Lamp and Fundus Exam Slit Lamp Exam Right Left Lids/Lashes Normal Normal Conjunctiva/Sclera White and quiet White and quiet Cornea Descemet's folds Clear Anterior Chamber rare cell Deep and quiet Iris Dilated and temporal synechiae @ 6 & 10 Round and reactive Lens Posterior chamber intraocular lens, PCO 1+ Cortical cataract Vitreous >90 % silicone oil fill clear Fundus Exam Right Left Disc 2+ Pallor Healthy Rim C/D Ratio 0.4 Macula attached Normal Vessels Normal Normal Periphery Retina attached with inferior PVR overlying SB and contained by laser barricade, superiorretinectomy surrounded by laser scars, drainage retinotomies posterior pole Retina attached, no predisposing lesions to retinal detachment. Please refer to large retinal drawing. DIAGNOSES: 1. 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 There is a small chance the inferior PVR will cause re-detachment. Discussed that this PVR is difficult to remove safely (retinectomy) unless retina is detached. It is presently well supported by buckle and surrounded y laser scars. Offer PPVx with SO removal right eye Risks or red-detachment and need for more surgery discussed. S/p 02/11/2022 PPVx, inferior PVR peel, superior retinectomy,??EL,??SO for recurrent RRD?? S/p 01/21/2022 PPV, SO removal right eye S/p 12/24/2021 CE+IOL s/p 10/10/2021 PPV, EL, SO for recurrent retinal detachment?? s/p12/??SB, PPV, EL, SF6, STK for VH and RD/RT S/p 03/21/2021 and 03/28/2021 laser retinopexy for peripheral RD with 3 tears Normal IOP Uveitis controlled Some posterior synechiae Continue PF right eye BID Return if symptoms worsen or fail to improve, for within 1 month PPVx, SO removal right eye. I have reviewed the past medical, family, [...] while he is personally performing the service. 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 documented in this encounter Eye Exam Visual Acuity (Snellen - Linear) Right eye Left eye Dist cc 20/150 -2 20/30 -2 Dist ph cc 20/70 -2 Correction: Glasses Tonometry (Applanation, 8:20) Right eye Left eye Pressure 17 20 Pupils Pupils Right eye PERRL Left eye PERRL Neuro/Psych Oriented x3: Yes Mood/Affect: Normal Dilation Both eyes: Tropicamide 1%, Phenylephrine 2.5% @ 8:20 Slit Lamp Exam Right eye Left eye Lids/Lashes Normal Normal Conjunctiva/Sclera White and quiet White and quiet Cornea Descemet's folds Clear Anterior Chamber rare cell Deep and quiet Iris Dilated and temporal synechiae @ 6 & 10 Round and reactive Lens Posterior chamber intraocular lens, PCO 1+ Cortical cataract Vitreous >90 % silicone oil fill clear Fundus Exam Right eye Left eye Disc 2+ Pallor Healthy Rim C/D Ratio 0.4 Macula attached Normal Vessels Normal Normal Periphery Retina attached with inferior PVR Retina attached, no predisposing overlying SB and contained by laser lesi ons to retinal detachment. barricade, superior retinectomy surrounded by laser scars, drainage retinotomies posterior pole Care Teams Bellows Assembler Relationship Specialty Start Date End Date Yosi Graham, RPA PCP - General Family Medicine - Primary 04/10/[address] [place] [phone] documented as of this encounter
--- OUTSIDE RECORDS SUMMARY | 2022-07-05 02:46 | XMS_ITS | Encounter Summary ---
:1950 Author Organization [facility] Address [address] [place] [address] Care Team Providers Name Role Phone Sweetie Gonzales Primary Care Provider Reason for Visit Reason Comments Eye Problem Encounter Details Date Type Department Care Team Description 03/12/2022 Office Visit [facility] Jacky Blanchard MD Ophthalmology - [address], [address], [address] [place], [place] [address] [place] [address] [phone] (Wo rk) Social History Tobacco Use [...] encounter Progress Notes Jacky Blanchard MD - 03/12/2022 1430 EDT Chief Complaint Patient presents with ??? Eye Problem Comments 4 week post-op. Recurrent RD repair right eye w/ PVR. S/p PPVx, PVR peel, retinectomy, EL, SO 02/11/22. Vision seems the same. No pain today, had a sharp pain in right eye like a needle x3 days ago butwent away immediately. No flashes or floaters. Gtts: PF 4/-. HPI Location: Right eye Pain: 0 - No pain Quality: Blurry, Aching Severity: Moderate Duration: Days Timing: Constant Lasts: Continuous Context: 4 week post-op. Recurrent RD repair right eye w/ PVR. S/p PPVx, PVR peel, retinectomy, EL, SO 02/11/22. Vision seems the same. No pain today, had a sharp pain in right eye like a needle x3 daysago but went away immediately. No flashes or floaters. Gtts: PF 4/-. Modifying factors: Glasses. S/p PPVx, inferior PVR peel, superior retinectomy, EL, SO right eye 02/11/22. Gtts: PF 4/-. Associated Signs & Symptoms: Vision seems the same. No pain today, had a sharp pain in right eyelike a needle x3 days ago but went away immediately. No flashes or floaters. Visual Fluctuations: None Attestation: Base Eye Exam Visual Acuity (Snellen - Linear) Right Left Dist cc 20/200 -1 Dist ph cc 20/80 -1 Correction: Glasses Tonometry (Applanation, 15:11) Right Left Pressure 16 Pupils Pupils Dark Light Shape React APD Right PERRL 4 Minimal None Left PERRL 3 2 Round Brisk None Extraocular Movement Right Left Full, Ortho Full, Ortho Neuro/Psych Oriented x3: Yes Mood/Affect: Normal Dilation Right eye: Tropicamide 1%, Phenylephrine 2.5% @ 15:11 Slit Lamp and Fundus Exam Slit Lamp Exam Right Left Lids/Lashes Normal Conjunctiva/Sclera White and quiet Cornea Descemet's folds Anterior Chamber Deep with rare trace cell Deep Iris Dilated and temporal synechiae @ 6 & 10 Lens Posterior chamber intraocular lens, PCO Vitreous >90 % silicone oil fill Fundus Exam Right Left Disc 2+ Pallor Macula attached Vessels Normal Periphery Retina is attached with 360 last scars posterior to scleral buckle Please refer to large retinal drawing. IMAGING: DIAGNOSES: 1. 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 S/p 01/21/2022 PPV, SO removal right eye S/p 12/24/2021 CE+IOL s/p 10/10/2021 PPV, EL, SO for recurrent retinal detachment?? s/07/21/2021??SB, PPV, EL, SF6, STK for VH and RD/RT S/p 03/21/2021 and 03/28/2021 laser [address] for peripheral RD with 3 tears Normal IOP Uveitis controlled Some posterior synechiae ?? Decrease Prednisolone BID right eye Return in about 1 month (around 04/12/2022), or if symptoms worsen or fail to improve. I have reviewed the past medical, family, [...] while he is personally performing the service. 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 documented in this encounter Eye Exam Visual Acuity (Snellen - Linear) Right eye Left eye Dist cc 20/200 -1 Dist ph cc 20/80 -1 Correction: Glasses Tonometry (Applanation, 15:11) Right eye Left eye Pressure 16 Pupils Pupils Dark Light Shape React APD Right eye PERRL 4 Minimal None Left eye PERRL 3 2 Round Brisk None Extraocular Movement Right eye Left eye Full, Ortho Full, Ortho Neuro/Psych Oriented x3: Yes Mood/Affect: Normal Dilation Right eye: Tropicamide 1%, Phenylephrine 2.5% @ 15:11 Slit Lamp Exam Right eye Left eye Lids/Lashes Normal Conjunctiva/Sclera White and quiet Cornea Descemet's folds Anterior Chamber Deep with rare trace cell Deep Iris Dilated and temporal synechiae @ 6 & 10 Lens Posterior chamber intraocular lens, PCO Vitreous >90 % silicone oil fill Fundus Exam Right eye Left eye Disc 2+ Pallor Macula attached Vessels Normal Periphery Retina is attached with 360 last scars p osterior to scleral buckle Care Teams Jtac Relationship Specialty Start Date End Date Sweetie Gonzales PCP - General Family Medicine - Primary 12/18/21 04/09/[address] [place] [address] [place] [phone] documented as of this encounter
--- OUTSIDE RECORDS SUMMARY | 2022-07-05 02:46 | XMS_ITS | Clinical Summary ---
:1950 Author Organization [facility] Address [address] [place] [address] Care Team Providers Name Role Phone Yosi Graham [facility] Primary Care Provider [phone] Allergies No known active allergies Medications Medication Sig Dispensed Refills Start Date End Date Status metoprolol (LOPRESSOR) Take 25 mg by 0 Active 25 mg tablet mouth daily. aspirin 81 mg EC tablet Take 81 mg by 0 Active mouth daily. lisinopriL (PRINIVIL) 30 Take 30 mg by 0 Active mg tablet mouth daily. pravastatin (PRAVACHOL) Take 40 mg by 0 Active 40 mg tablet mouth daily. prednisoLONE (PRED Place 1 Drop 5 mL 3 02/25/2022 Active FORTE) 1 % ophthalmic into the right suspension eye 4 times daily. ofloxacin (OCUFLOX) 0.3 Place 1 Drop 5 mL 1 05/16/2022 Active % ophthalmic solution into the right eye 4 times daily. Additional Information Patient not taking. Reported on 06/13/2022 ketOROLAC (ACULAR) 0.5 % Place 1 Drop into the 10 mL 11 05/2022 Active ophthalmic solution right eye 4 times daily. Active Problems Patient Care Coordination Note Formatting of this note might be differe nt from the original. Patient's [place] Medicaid has his first name as Mehul. Advised pt to update his first name with [place] Medicaid to avoid any possible billing issues. 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 Pseudophakia, right eye 12/25/2021 Mixed type age-related cataract, left eye 12/25/2021 Proliferative vitreoretinopathy of right eye Vitreous hemorrhage of right eye ([facility]) 07/10/2021 Retinal detachment, right 03/23/2020 PVD (posterior vitreous detachment), right eye 020 Vitreous syneresis of left eye 03/23/2020 Malignant neoplasm of prostate ([facility]) 09/11/2016 Cancer Staging: Clinical: Stage I (T1c, N0, M0) - Signed by Rogerio Freitas III, MD on 09/11/2016 Resolved Problems Problem Noted Date Resolved Date Nuclear senile cataract of both eyes 10/06/2021 Encounters Date Type Specialty Care Team Description 06/13/2022 Post-op Visit Ophthalmology Jacky Blanchard MD Chorioret inaliliam scar after retinal detachment surgery (Primary Dx); Macular edema 05/30/2022 Post-op Visit Ophthalmology Jacky Blanchard MD Choriavril inaliliam scar after retinal detachment surgery (Primary Dx); Macular edema 05/23/2022 Post-op Visit Ophthalmology Jacky Blanchard MD Choriavril inaliliam scar after retinal detachm ent surgery (Primar y Dx) 05/16/2022 Post-op Visit Ophthalmology Jacky Blanchard MD Chorioret inal scar after retinal detachment surgery (Primary Dx); Proliferative v itreoretinopathy of right eye; Retinal detachm ent of right eye with multiple retinal tears 05/15/2022 Anesthesia Event Leonarda Rodrigues MD 05/15/2022 Surgery Jacky Blanchard MD [place] Vitrectomy and Silicone Oil Re moval, RIGHT EYE [6703 [id number] (CPT??)] 05/15/2022 Hospital Encounter Jacky Blanchard MD 04/19/2022 Office Visit Ophthalmology Jacky Blanchard MD 04/16/2022 Office Visit Urology Jose Carlos Fisher n eoplasm of prostate ([facility]) ([facility]) (Primary Dx); MD [facility] (erectile dy sfunction) of organic origin 04/13/2022 Hospital Encounter Radiology Malignant neoplasm of prostate ([facility]) ([facility]) from Last 3 Months Immunizations Name Administration Dates Next Due Covid-19 mRNA Vaccine (MODERNA COVID-19) 08/17/2021, 021, 12/08/2020 PF 0.5 ml IM (12 yrs+) Surgical History Surgery Date Site/Laterality Comments CARDIAC VALVE REPLACEMENT 12/01/2014 aortic valve replacement RETINAL DETACHMENT SURGERY 03/21 right eye OTHER SURGICAL HISTORY scleral b uckle 07/11/2021 right eye VITRECTOMY 10/10/2021 right e ye CATARACT REMOVAL 12/02/2021 - Right 01/01/2022 CATARACT REMOVAL WITH Right IMPLANT Medical History Medical History Date Comments Elevated prostate specific antigen (PSA) Family history of malignant neoplasm of both brothers prostate History of general anesthesia Exercise involving walking always busy , works in the garden, can amb 2 flights of stairs without SOB Wears glasses Aortic valve disorder s/p replacement wi th bovine valve, takes ASA, see cardi ology Dr Spear at [facility] HLD (hyperlipidemia) Activity, other involving cardiorespiratory 01/14/22 1-2 FOS without getting SOB exercise Hypertension lisinopril dose incr to 30 mg December 2021, avg 130/78 at home, checks it daily. 01/14/22: well controlled with meds, 130s/70s Cancer (HCC-CMS) (HCC) prostate per biop sy around 2016, monitored by urologi st, no surgery at this time per pt 12/02 02/22. Other states following surgery of eye and adnexa Cataract Family History Medical History Relation Comments Prostate Cancer Brother 1 Prostate Cancer Brother 2 Macular Degeneration Mother Anesthesia Problem Neg Hx Glaucoma Neg Hx Retinal Detachment Neg Hx Relation Status Comments Brother 1 Alive Brother 2 Alive Father Mother Social History Tobacco Use Types Packs/Day Years Used Date Smoking Tobacco: Never Smokeless Tobacco: Never Tobacco Cessation: Counseling Given: Yes Alcohol Use Standard Drinks/Week Comments Yes 3 (1 standard drink = 0.6 oz pure alcoho l) Sex Assigned at Date Recorded Not on file Obstetrics History Last Filed Vital Signs Vital Sign Reading Time Taken Comments Blood Pressure 132/75 05/15/2022 1045 EDT Pulse 60 10/10/2021 1120 EST Temperature 36.9 ??C (98.4 ??F) 05/15/2022 1045 EDT Respiratory Rate 17 05/15/2022 1045 EDT Oxygen Saturation 99% 05/15/2022 1045 EDT Inhaled Oxygen Concentration - - Weight 98.7 kg (217 lb 9.5 oz) 05/15/2022 0715 EDT Height 167.6 cm (5' 6) 05/15/2022 0715 EDT Body Mass Index 35.12 05/15/2022 0715 EDT Plan of Treatment Upcoming Encounters Date Type Specialty Care Team Description 07/12/2022 Post-op Visit Ophthalmology Jacky Blanchard MD 111 [facility] [address] [place], [place] [phone] (Wo rk) 07/18/2022 Office Visit Urology Jose Carlos Fisher MD 111 [facility] [address] [place], [place] [phone] (Wo rk) Health Maintenance Due Date Last Done Comments Hepatitis C Screen 1950 Fall Risk Screening 2017 COVID-19 Vaccine (4 - Booster for 10/12/2021 08/17/2021, , Moderna series) 12/08/2020 Medical Devices Implanted Type Area Certified Fire Investigator Device Shelf Model / Identifier Expiration Serial / Date Lot Sleeve Retinal Silcne - [id number] Opthamology Right: TANZANIAN [id number] / Implanted: Qty: 1 on 07/11/2021 by Jacky Blanchard MD at [facility] Implant Eye [employer] / Lens Intraocular Monofocal Posterior Bic onvex Optic Foldable +19.5d [employer] [id number] - [id number] Opthamology Right: [employer] AND [id number] 11/06/2026 [id number] / Implanted: Qty: 1 on 12/24/2021 by Rodney Mercer MD at [facility] Implant [employer] [id number] / Bovine Aortic Vavle Replacement-M r Safe Per Hospital Policy Procedures Procedure Name Priority Date/Time Associated Diagnosis Comme nts OCT, RETINA - OU - Routine 06/13/2022 9:26 Chorioretinal scar Results for this BOTH EYES EST after retinal procedure are in detachment surge ry the results Macular edema section. OCT, RETINA - OU - Routine 05/30/2022 9:06 Chorioretinal scar Results for this BOTH EYES EDT after retinal procedure are in detachment surge ry the results Macular edema section. OCT, RETINA - OD - Routine 05/23/2022 9:53 Chorioretinal scar Results for this RIGHT EYE EDT after retinal procedure are in detachment surgery the resul ts section. VITRECTOMY, 05/15/2022 9:16 Retinal detachment, MECHANICAL, PARS EDT right PLANA APPROACH MR PROSTATE W WO Routine 04/13/2022 8:26 Malignant neoplasm of Results for this CONTRAST EDT prostate ([facility]) procedure are in ([facility]) the results section. from Last 3 Months Results OCT, RETINA - OU - BOTH EYES (06/13/2022 9:26 EST) Specimen (Source) Anatomical Location Collection Method / Collectio n Time Received Time / Laterality Volume Narrative [facility] OPHTHALMOLOGY - 06/13/2022 9:32 ES T Right Eye Quality was good. Progression has worsen ed. Findings include epiretinal membrane, intraretinal fluid, lamellar h ole. Left Eye Quality was good. Progression has been s table. Findings include normal observations. Jacky Blanchard MD OPHTH TOMOGRAPHY Performing Organization Address City/State/ZIP Code Phon e Number [facility] OPHTHALMOLOGY OCT, RETINA - OU - BOTH EYES (05/30/2022 9:06 EDT) Specimen (Source) Anatomical Location Collection Method / Collectio n Time Received Time / Laterality Volume Narrative [facility] OPHTHALMOLOGY - 05/30/2022 9:57 ED T Right Eye Quality was good. Progression has worsen ed. Findings include intraretinal fluid, epiretinal membrane, lamellar hol e. Left Eye Quality was good. Progression has been s table. Findings include normal observations. 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 Jacky Blanchard MD OPHTH TOMOGRAPHY Performing Organization Address City/State/ZIP Code Phon e Number [facility] OPHTHALMOLOGY OCT, RETINA - OD - RIGHT EYE (05/23/2022 9:53 EDT) Specimen (Source) Anatomical Location Collection Method / Collectio n Time Received Time / Laterality Volume Narrative [facility] OPHTHALMOLOGY - 05/23/2022 9:58 ED T Quality was good. Progression has been stable. Findings include intraretinal fluid, lamellar hole. Jacky Blanchard MD OPHTH TOMOGRAPHY Performing Organization Address City/State/ZIP Code Phon e Number [facility] OPHTHALMOLOGY MR PROSTATE W WO CONTRAST (04/13/2022 8:26 [...] intravenous administration of contrast. Perfusion assessed with Pulse.io software. Findings: Prostate: Volume: 38 cc PSA [...] Jose Carlos Fisher MD IMG MRI ORDERABLES from Last 3 Months Insurance Payer Benefit Plan / Subscriber ID Effective Phone Address T ype Group Dates MEDICARE MEDICARE A/B [id number] 2017-Pre [address] Me dicare GL sent [phone] [place] [address] AETNA AETNA [facility] [id number] 2017-Pre [phone] Commer cial GL SUPPLEMENTAL sent [phone] [place] [address] [place] [id number] 2020-Pre [address] Medicaid [place] sent [facility] [phone] [place] Suarez Personal/Family Self 1950 [address] (Home) [place] [address] [place] Suarez Personal/Family Self 1950 [address]Home) [place] [address] Po Matthews Personal/Family Self 1950 [address] [place] (Home) [place] [address] Advance Directives For more information, please contact: [phone] Latest Code Status on File Code Status Date Activated Date Inactivated Comments Full Code 05/15/2022 7:22 05/15/2022 12:58 When the patient has NO PULSE: Full Code / CPR Who Made the Decision? Default/Not Discussed Full Code 02/11/2022 15:46 02/11/2022 22:10 When the patient has NO PULSE: Full Code / CPR Who Made the Decision? Default/Not Discussed Full Code 01/21/2022 10:26 01/21/2022 15:44 When the patient has NO PULSE: Full Code / CPR Who Made the Decision? Default/Not Discussed Full Code 12/24/2021 11:08 12/24/2021 15:39 When the patient has NO PULSE: Full Code / CPR Who Made the Decision? Default/Not Discussed Full Code 10/10/2021 13:21 10/10/2021 20:27 When the patient has NO PULSE: Full Code / CPR Who Made the Decision? Default/Not Discussed Care Teams Billing And Quality Technician Relationship Specialty Start Date End Date Yosi Graham RPA PCP - General Family Medicine - Primary 04/10/[address] [place] [id number]
--- OUTSIDE RECORDS SUMMARY | 2022-07-05 02:46 | XMS_ITS | Encounter Summary ---
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 documented as of this encounter Ordered Prescriptions Prescription Sig Dispensed Refills Start Date End Date ofloxacin (OCUFLOX) 0.3 % Place 1 Drop into 5 mL 1 ophthalmic solution the right eye 4 times daily. documented in this encounter Progress Notes Jacky Blanchard MD - 05/16/2022 0800 EDT Chief Complaint Patient presents with ??? Eye Problem Comments 1 day post-op. Recurrent RD repair right eye. S/p PPVx, SO removal, gas right 05/15/22. No pain, headache, or nausea. Pt states they slept good. Gtts: PF 2/- (last time yesterday morning). HPI Location: Right eye Pain: 0 - No pain Quality: Blurry Severity: Moderate Duration: Months Timing: Constant Lasts: Continuous Context: 1 day post-op. Recurrent RD repair right eye. S/p PPVx, SO removal, gas right 05/15/22. No pain, headache, or nausea. Pt states they slept good. Gtts: PF 2/- (last time yesterday morning). Modifying factors: S/p PPVx, SO removal, gas right 05/15/22. Gtts: PF 2/- (last time yesterday morning). Associated Signs & Symptoms: No pain, headache, or nausea. Pt states they slept good. Visual Fluctuations: None Attestation: Base Eye Exam Visual Acuity (Snellen - Linear) Right Left Dist cc CF at 1' Correction: Glasses Tonometry (Applanation, 8:21) Right Left Pressure 7 Neuro/Psych Oriented x3: Yes Mood/Affect: Normal Dilation Right eye: Tropicamide 1%, Phenylephrine 2.5% @ 8:22 Slit Lamp and Fundus Exam Slit Lamp Exam Right Left Lids/Lashes Normal Normal Conjunctiva/Sclera White and quiet White and quiet Cornea Descemet's folds Clear Anterior Chamber rare cell Deep and quiet Iris Dilated and temporal synechiae @ 6 & 10 Round and reactive Lens Posterior chamber intraocular lens, PCO 1+ Cortical cataract Vitreous >90 % air fill clear Fundus Exam Right Left Disc 2+ Pallor Macula flat Periphery attached over SB with 360 laser Please refer to large retinal drawing. IMAGING: DIAGNOSES: 1. 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 Retinal detachment of right eye with multiple retinal tears Assessment Retina attached Low IOP No infection S/p 05/15/2022 PPV, SOR, FAX S/p 02/11/2022 PPVx, inferior PVR peel, superior [...] barricaded by laser. +/- Epiciliary membrane? No heavy lifting, bending or straining. No pools, lakes or spa's. 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 Retinal detachment of right eye with mul tiple retinal tears documented in this encounter Eye Exam Visual Acuity (Snellen - Linear) Right eye Left eye Dist cc CF at 1' Correction: Glasses Tonometry (Applanation, 8:21) Right eye Left eye Pressure 7 Neuro/Psych Oriented x3: Yes Mood/Affect: Normal Dilation Right eye: Tropicamide 1%, Phenylephrine 2.5% @ 8:22 Slit Lamp Exam Right eye Left eye Lids/Lashes Normal Normal Conjunctiva/Sclera White and quiet White and quiet Cornea Descemet's folds Clear Anterior Chamber rare cell Deep and quiet Iris Dilated and temporal synechiae @ 6 & 10 Round and reactive Lens Posterior chamber intraocular lens, PCO 1+ Cortical cataract Vitreous >90 % air fill clear Fundus Exam Right eye Left eye Disc 2+ Pallor Macula flat Periphery attached over SB with 360 laser Care Teams Drop Forge Hand Relationship Specialty Start Date End Date Yosi Graham, RPA PCP - General Family Medicine - Primary 04/10/[address] [place] [id number] documented as of this encounter
--- OUTSIDE RECORDS SUMMARY | 2022-07-05 02:46 | XMS_ITS | Encounter Summary ---
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 Post-OP Follow Up Comments 1 week post-op. Recurrent RD repair right eye. S/p PPVx, inferior PVR peel, superior retinectomy, EL, SO right eye 02/11/22. Vision is improving but still blurry. Some aching pain 5/10 around the socket right eye, none right now but happens occasionally. Tylenol seems to get rid of the pain. No flashes or floaters. No headaches or nausea. Gtts: PF q2hr/- and ocuflox 2/-. HPI Location: Right eye Pain: 5.0 Quality: Blurry, Aching Severity: Moderate Duration: Days Timing: Constant Lasts: Continuous Context: 1 week post-op. Recurrent RD repair right eye. S/p PPVx, inferior PVR peel, superior retinectomy, EL, SO right eye 02/11/22. Vision is improving but still blurry. Some aching pain 5/10 around the socket right eye, none right now but happens occasionally. Tylenol seems to get rid of the pain. No flashes or floaters. No headaches or nausea. Gtts: PF q2hr/- and ocuflox 2/-. Modifying factors: Glasses. S/p PPVx, inferior PVR peel, superior retinectomy, EL, SO right eye 02/11/22. Gtts: PF q2hr/- and ocuflox 2/-. Associated Signs & Symptoms: Vision is improving but still blurry. Some aching pain 5/10 around the socket right eye, none right now but happens occasionally. Tylenol seems to get rid of the pain. No flashes or floaters. No headaches or nausea. Visual Fluctuations: None Attestation: Base Eye Exam Visual Acuity (Snellen - Linear) Right Left Dist sc 20/250 -1 Dist ph sc 20/80 -1 Correction: Glasses Tonometry (Applanation, 13:21) Right Left Pressure 18 Pupils Dark Light Shape React APD Right 5 Minimal None Left 3 2 Round Brisk None Extraocular Movement Right Left Full, Ortho Full, Ortho Neuro/Psych Oriented x3: Yes Mood/Affect: Normal Dilation Right eye: Tropicamide 1%, Phenylephrine 2.5% @ 13:21 Slit Lamp and Fundus Exam Slit Lamp Exam Right Left Lids/Lashes Normal Conjunctiva/Sclera White and quiet Cornea Descemet's folds Anterior Chamber Deep with rare trace cell Deep Iris Dilated and temporal synechiae Lens Posterior chamber intraocular lens, PCO Vitreous >90 % silicone oil fill Fundus Exam Right Left Disc 2+ Pallor Macula attached Vessels Normal Periphery Retina is attached with 360 last scars posterior to scleral buckle Please refer to large retinal drawing. DIAGNOSES: [...] IOP Uveitis controlled Some posterior synechiae ?? Discontinue Ocuflox Decrease Prednisolone QID right eye Return 3 weeks/PRN I have reviewed the past medical, family, [...] he is personally performing the service. 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 documented in this encounter Eye Exam Visual Acuity (Snellen - Linear) Right eye Left eye Dist sc 20/250 -1 Dist ph sc 20/80 -1 Correction: Glasses Tonometry (Applanation, 13:21) Right eye Left eye Pressure 18 Pupils Dark Light Shape React APD Right eye 5 Minimal None Left eye 3 2 Round Brisk None Extraocular Movement Right eye Left eye Full, Ortho Full, Ortho Neuro/Psych Oriented x3: Yes Mood/Affect: Normal Dilation Right eye: Tropicamide 1%, Phenylephrine 2.5% @ 13:21 Slit Lamp Exam Right eye Left eye Lids/Lashes Normal Conjunctiva/Sclera White and quiet Cornea Descemet's folds Anterior Chamber Deep with rare trace cell Deep Iris Dilated and temporal synechiae Lens Posterior chamber intraocular lens, PCO Vitreous >90 % silicone oil fill Fundus Exam Right eye Left eye Disc 2+ Pallor Macula attached Vessels Normal Periphery Retina is attached with 360 last scars p osterior to scleral buckle Care Teams Group Leader [employer]fer [employer] Relationship Specialty Start Date End Date Sweetie Gonzales PCP - General Family Medicine - Primary 12/18/21 04/09/[address] [place] [address] [place] [phone] documented as of this encounter
--- OUTSIDE RECORDS SUMMARY | 2022-07-05 02:46 | XMS_ITS | Encounter Summary ---
:1950 Author Organization [facility] Address [address] [place] [address] Care Team Providers Name Role Phone Sweetie Gonzales Primary Care Provider Reason for Visit Auth/Cert Specialty Diagnoses / Procedures Referred By Contact Refer red To Contact Diagnoses Retinal detachment, right Procedures MD RPR COMPLEX RETINA DETACH VITRECT &MEMBRANE PEEL REPAIR, RETINAL DETACHMENT, COMPLEX, WITH VITRECTOMY AND MEMBRANE PEELING Referral ID Status Reason Start Date Expiration Date Visits Requ ested Visits Authorized [id number] 1 1 Encounter Details Date Type Department Care Team Description 02/11/2022 Surgery [facility] OR Jacky Blanchard MD REPAIR, RETINAL 111 [facility] 111 [facility] DETACHMENT, COMPLEX, [place], [place] [id number] [place] [address] WITH VITRECTOMY, LASER [phone] Pavilion, Level 5 AND MEMBRANE PEELING [place], [place] [[id number] (CPT?? )] [phone] (Wo rk) Surgery Details Date/Time Status Location OR Service Patient Class Case Case Trauma Class Type Case? 02/11/22 1704 Posted [facility] OR [facility] - Less Outpatient than 12 Surgery hours Panel 1 Procedure LRB Anes Op Region Wound Class Commen ts REPAIR, RETINAL Right Monitor Anesthesia Eye Class II/ Cl bianca DETACHMENT, Care Contaminated COMPLEX, WITH VITRECTOMY, LASER AND MEMBRANE PEELING Surgeon Surgeon Role Service Panel Jacky Blanchard MD Primary Ophthalmology 1 Special Needs Ask if he wants ICG for the membrane pee l documented in this encounter Social History Tobacco Use Types Packs/Day Years Used Date Smoking Tobacco: Never Smokeless Tobacco: Never Alcohol Use Standard Drinks/Week Comments Yes 3 (1 standard drink = 0.6 oz pure alcoho l) Sex Assigned at Date Recorded Not on file documented as of this encounter Last Filed Vital Signs Vital Sign Reading Time Taken Comments Blood Pressure 143/95 02/11/2022 1546 EDT Pulse - - Temperature 36.4 ??C (97.5 ??F) 02/11/2022 1546 EDT Respiratory Rate 16 02/11/2022 1546 EDT Oxygen Saturation 96% 02/11/2022 1546 EDT Inhaled Oxygen Concentration - - Weight [...] encounter Procedure Notes Jacky Blanchard MD - 02/11/2022 1948 EDTProcedure(s): MD RPR COMPLEX RETINA DETACH VITRECT &MEMBRANE PEEL [...] Nursing Notes Lisy Mathias RN - 02/11/2022 6536 EDT Preop Covid DOS screening questionnaire Please [...] Post-op Visit Ophthalmology Jacky Blanchard MD [address] [phone] (Jose M ortiz) 07/18/2022 Office Visit Urology Jose Carlos Fisher MD [address] [phone] (Jose M ortiz) documented as of this encounter Procedures Procedure [...] MAR Action Action Date Dose Rate Site Bacitracin Zinc-Polymyxin B Given 02/11/2022 19:24 EDT 1 mg Right Eye 500-10,000 unit/gram ointment ointment PRN, Starting on Fri02/11/22 at 1924, Until Fri02/11/22 at 1937, Intraprocedure balanced salt solution inrrigation Given 02/11/2022 18:20 EDT 50 0 mL Right Eye solution (BSS PLUS) 500 mL, EPINEPHrine HCl (PF) (ADRENALIN) 0.5 mL irrigation PRN, Starting on Fri02/11/22 at 1820, Until Fri02/11/22 at 1937, Routine, Intraprocedure chondroitin-sodium hyaluronate Given 02/11/2022 18:20 EDT 0.5 mL Right Eye (VISCOAT) ophthalmic solution PRN, Starting on Fri02/11/22 at 1820, Until Fri02/11/22 at 1937, Routine, Intraprocedure cyclopentolate (CYCLOGYL) 1 % ophthalmic Given 02/11/2022 17:11 EDT 1 Drop solution 1 Drop 1 [...] 02/11/2022 16:26 EDT 30 mL/hr 30 mL/hr lidocaine 20 mg/mL (2 %) 5 mL, Given 02/11/2022 18:21 EDT 5 mL Right Eye bupivacaine (PF) (MARCAINE) 0.75 % (7.5 mg/mL) 5 mL PRN, Starting on Fri02/11/22 at 1821, Until Fri02/11/22 at 1937, Routine, Intraprocedure methylPREDNISolone sod suc(PF) Given 02/11/2022 19:20 EDT 40 mg Right Eye (SOLU-MEDROL) injection PRN, Starting on Fri02/11/22 at 1920, Until Fri02/11/22 at 1937, Routine, Intraprocedure phenylephrine (MYDFRIN) 2.5 % ophthalmic Given 02/11/2022 17:12 EDT 1 Drop solution 1 Drop 1 Drop, right eye, PRE-OP Q 5 MINUTES, 3 doses, Starting on Fri02/11/22 at 1651, Until Fri02/11/22 at 1712, vitreoretinal surgery, Routine, Preprocedure Given 02/11/2022 17:07 EDT 1 Drop Given 02/11/2022 17:02 EDT 1 Drop sterile water (PF) 2.5 mL with Given 02/11/2022 19:21 EDT 2.5 mL Right Eye ceFAZolin (ANCEF) 1 g PRN, Starting on Fri02/11/22 at 1831, Until Fri02/11/22 at 1937, Routine, Intraprocedure documented in this encounter Discontinued Medications Medication [...] 626 (New Bag - Provider: Lisy Mathias RN)1750 (Paused - Provider: CHETAN Randall - Comment: Switch to gravity)1751 (Restarted - Provider: CHETAN Randall)194 (Anesthesia Volume Adju stment - Provider: CHETAN Randall) at 30 mL/hr, 30 mL/hr, intravenous, CONT INUOUS, Starting on Fri02/11/22 at 1615, Until Fri02/11/22 at 2210, Routine, Preprocedure PRN Medication Order 02/09/2022 02/10/2022 02/11/2022 Bacitracin Zinc-Polymyxin B 500-10,000 unit/gram ointment ointme nt (CANCELED) 192 (Given - Provider: Jacky Blanchard MD - Comment: 1 application) PRN, Starting on Fri02/11/22 at 1924, Until Fri 2 at 1937, Intraprocedure balanced salt solution inrrigation solut ion (BSS PLUS) 500 mL, EPINEPHrine HCl (PF) (ADRENALIN) 0.5 mL irrigation (CANCELED) 1819 (Given - Provider: Jacky Blanchard MD - Comment: PART II-[id number] ------[id number]) PRN, Starting on Fri02/11/22 at 1820, Un til Fri02/11/22 at 1937, Routine, Intraprocedure chondroitin-sodium hyaluronate (VISCOAT) ophthalmic solution (CA NCELED) 1819 (Given - Provider: Jcaky Blanchard MD - Comment: [id number]) PRN, Starting on Fri02/11/22 at 1820, Un til Fri02/11/22 at 1937, Routine, Intraprocedure cyclopentolate (CYCLOGYL) 1 % ophthalmic solution 1 Drop (COMPLE WYATT) 170 (Given - Provider: Monica Dunham RN)170 (Given - Provider: Monica Dunham RN)171 (Given - Provider: Monica Dunham RN) 1 Drop, right eye, PRE-OP Q 5 MINUTES, 3 doses, Starting on Fri02/11/22 at 1651, Until Fri02/11/22 at 1711, Other, Routine, Preprocedure lidocaine 20 mg/mL (2 %) 5 mL, bupivacai ne (PF) (MARCAINE) 0.75 % (7.5 mg/mL) 5 mL (CANCELED) 182 (Given - Provid er: Jacky Blanchard MD - Comment: [id number] -------[id number]) PRN, Starting on Fri02/11/22 at 1821, Un til Fri02/11/22 at 1937, Routine, Intraprocedure methylPREDNISolone sod suc(PF) (SOLU-MEDROL) injection (CANCELED ) 1919 (Given - Provider: Jacky Blanchard MD - Comment: [id number] 0.3ml given) PRN, Starting on Fri02/11/22 at 1920, Un til Fri02/11/22 at 1937, Routine, Intraprocedure phenylephrine (MYDFRIN) 2.5 % ophthalmic solution 1 Drop (COMPLE WYATT) 1701 (Given - Provider: Monica Dunham, STUART)1706 (Given - Provider: Monica uDnham, RN)171 (Given - Provider: Monica Dunham, STUART) 1 Drop, right eye, PRE-OP Q 5 MINUTES, 3 doses, Starting on Fri02/11/22 at 1651, Until Fri02/11/22 at 1712, vitreoretinal surgery, Routine, Preprocedure sterile water (PF) 2.5 mL with ceFAZolin (ANCEF) 1 g (CANCELED) 1920 (Given - Provider: Jacky Blanchard MD - Comment: [id number]) PRN, Starting on Fri02/11/22 at 1831, Un til Fri02/11/22 at 1937, Routine, Intraprocedure documented in this encounter Orders Medications Ordered That Might Not Have Count Last Ord ered Date First Ordered Date Been Administered lidocaine (PF) 10 mg/mL (1 %) injection 2 1 2021 mg Discharge Count Last Ordered Date First Ordered Date DISCHARGE PATIENT 1 02/11/2022 documented in this encounter Care Teams Senior [employer] Relationship Specialty Start Date End Date Sweetie Gonzales PCP - General Family Medicine - Primary 12/18/21 04/09/[address] [place] [address] [place] [phone] documented as of this encounter
--- OUTSIDE RECORDS SUMMARY | 2022-07-05 02:46 | XMS_ITS | Encounter Summary ---
:1950 Author Organization [facility] Address [address] [place] [address] Care Team Providers Name Role Phone Yosi Graham EDER Primary Care Provider [phone] Reason for Visit Reason Comments Follow-up MRI result Encounter Details Date Type Department Care Team Description 04/16/2022 Office Visit [facility] Jose Carlos Fisher neoplasm of prostate ([facility]) (HCC) (Primary Dx); Urology - Medical MD [place] [facility] (erectile dysfunction) of organic wilfredo gin Office Building [address] [place] [address] [place] [address], [place] [address] (Wo rk) Social History Tobacco [...] documented as of this encounter Progress Notes Jose Carlos Fisher MD - 04/16/2022 1045 EDT Subjective: Patient ID: Po Matthews is an [address] yun referring provider has requested that I see Po Matthews in consultation for Follow-up (MRI result). HPI He is here today on a telephone visit for follow-up of his Stage [id number] G 6 CAP on . On 08/20/2016 he had 4/12 Bx positive for G6 CAP. A repeat Bx 1 year later demonstrated 5/12 Cores positive for a G6 ( single core >80% , all the remaining were 10% or less) He had a MRI of the prostate in 04/2021 MR Prostate : 04/14/2021: IMPRESSION ?? 1. Moderate focal diffusion abnormality left posterior transition zone centered mid gland, 1.4 cm, with mild early enhancement, best classified as PI-RADS 4, clinically significant prostate cancer likely to be present. 2. Probable discogenic changes lower lumbar spine. He had a recent repeat MRI on 04/13/22 ( films and report reviewed ) : ?? IMPRESSION Focal diffusion abnormality measuring up to 1.4 cm in the posterior left peripheral zone is unchanged from one year prior, PI RADS 4 (high likelihood of prostate cancer). ?? I have personally reviewed the images and the above interpretation and agree with the findings. He has 2 brothers with CAP , both treated . He has seen XRT for their input and they agreed with . He has mild urgency. He has reduced erections. He is using Sildenafil 50 mg on demand and it is effective. He has a bovine heart valve in place. He has no changes in his LUT'S. He has low back pain that improves with activity. Patient Active Problem List Diagnosis ??? Malignant neoplasm of prostate (HCC-CMS) (HCC) ??? Retinal detachment, right ??? PVD (posterior vitreous detachment), right eye ??? Vitreous syneresis of left eye ??? Vitreous hemorrhage of right eye (HCC-CMS) (HCC) ??? Proliferative vitreoretinopathy of right eye ??? Pseudophakia, right eye ??? Mixed type age-related cataract, left eye ??? 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 Activity, other involving cardiorespiratory exercise 6/13/22 1-2 FOS without getting SOB ??? Aortic valve disorder s/p replacement with bovine valve, takes ASA, see cardiology Dr Spear at [facility] ??? Cancer ([facility]) (HCC) prostate per biopsy around 2016, monitored by urologist, no surgery at this time per pt 12/18/21. ??? Cataract ??? Elevated prostate specific antigen (PSA) ??? Exercise involving walking always busy, works in the garden, can amb 2 flights of stairs without SOB ??? Family history of malignant neoplasm of prostate both brothers ??? History of general anesthesia ??? HLD (hyperlipidemia) ??? Hypertension lisinopril dose incr to 30 mg December 2021, avg 130/78 at home, checks it daily. 01/14/22: well controlled with meds, 130s/70s ??? Other states following surgery of eye and adnexa ??? Wears glasses Past Surgical History: Procedure Laterality Date ??? CARDIAC VALVE REPLACEMENT 12/01/2014 aortic valve replacement ??? CATARACT REMOVAL Right 12/2021 ??? CATARACT REMOVAL WITH IMPLANT Right ??? OTHER SURGICAL HISTORY scleral buckle 07/11/2021 right eye ??? RETINAL DETACHMENT SURGERY 03/21/2020 right eye ??? VITRECTOMY 10/10/2021 right eye Family History Problem Relation Age of Onset ??? Prostate Cancer Brother ??? Prostate Cancer Brother ??? Macular Degeneration Mother ??? Glaucoma Neg Hx ??? Retinal Detachment Neg Hx ??? Anesthesia Problem Neg Hx Social Social History Tobacco Use ??? Smoking status: Never Smoker ??? Smokeless tobacco: Never Used Substance Use Topics ??? Alcohol use: Yes Alcohol/week: 3.0 - 4.0 standard drinks Types: 3 - 4 Cans of beer per week ??? Drug use: Never Current Outpatient Medications on File Prior to Visit Medication Sig Dispense Refill ??? aspirin (ASPIRIN LOW DOSE) 81 mg EC tablet Take 81 mg by mouth daily. ??? diazePAM (VALIUM) 10 mg tablet One tab 1 hour and then the second 10 minutes before your scheduled appt. (Patient not taking: Reported on 04/16/2022) 2 Tablet 0 ??? lisinopriL (PRINIVIL) 30 mg tablet Take 30 mg by mouth daily. ??? metoprolol (LOPRESSOR) 25 mg tablet Take 25 mg by mouth daily. ??? pravastatin (PRAVACHOL) 40 mg tablet Take 40 mg by mouth daily. ??? prednisoLONE (PRED FORTE) 1 % ophthalmic suspension Place 1 Drop into the right eye 4 times daily. 5 mL 3 No current facility-administered medications on file prior to visit. No Known Allergies ROS - Constitutional: Negative. Respiratory: Negative. Cardiovascular: Negative. Objective: There were no vitals taken for this visit. Physical Exam Constitutional: He is oriented to person, place, and time. He appears well- developed and well-nourished. HENT: Head: Normocephalic and atraumatic. Pulmonary/Chest: Effort normal. Neurological: He is alert and oriented to person, place, and time. Skin: Skin is dry. Psychiatric: He has a normal mood and affect. His behavior is normal. Judgment and thought content normal. No visits with results within 1 Day(s) from this visit. Latest known visit with results is: Hospital Outpatient Visit on 04/14/2021 Component Date Value Ref Range Status ??? Creatinine, Venous, i-STAT 04/14/2021 1.4 (A) 0.7 - 1.3 mg/dL Final ? ? eGFR, Calculated, i-STAT 04/14/2021 51 (A) >60 mL/min/1.73m2 Final eGFR calculated using CKD-EPI for non- Americans. Multiply eGFR by 1.16 for Americanpatients. PSA: 06/2016 : 4.9 04/2017: 3.8 09/23/17 5.9 02/02/18 5.7 06/08/18 5.7 11/21/18 4.8 06/04/19 5.6 12/2019 6.6 06/28/2020 7.1 01/15/21 7.5 04/2021 7.0 08/2021 7.4 02/25/22 : 11.04 [facility] No results found for: PSA BMP: Lab Results Component Value Date CREATININE 1.10 08/20/2016 Assessment / Plan: 1. Malignant neoplasm of prostate (HCC-CMS) (HCC) 2. ED (erectile dysfunction) of organic origin He has a stable PRATIBHA , rise in his PSA and a Hx of prostate cancer . He has stable MRI . Given his co-Morbidity and MRI stability he will be followed with a repeat PSA in 3 months . He will continue the sildenafil prn. No orders of the defined types were placed in this encounter. Jose Carlos Fisher MD documented in this encounter Plan of Treatment Upcoming Encounters Date Type Specialty Care Team Description 07/12/2022 Post-op Visit Ophthalmology Jacky Blanchard MD [address] [phone] (Wo rk) 07/18/2022 Office Visit Urology Jose Carlos Fisher MD [address] [phone] (Wo rk) Scheduled Orders Name Type Priority Associated Diagnoses Order S chedule PSA TOTAL, DIAGNOSTIC Lab Routine Malignant neoplasm of Expected: 04/15/2023 prostate (HCC-CMS) (HCC) (Ap proximate), Expires: 04/16/2023 documented as of this encounter Visit Diagnoses Diagnosis Malignant neoplasm of prostate (HCC-CMS) (HCC) - Primary Malignant neoplasm of prostate ED (erectile dysfunction) of organic wilfredo gin Impotence of organic origin documented in this encounter Care Teams Ecological Economist Relationship Specialty Start Date End Date Yosi Graham, RPA PCP - General Family Medicine - Primary 04/10/[address] [place] [phone] documented as of this encounter
--- OUTSIDE RECORDS SUMMARY | 2022-07-05 02:46 | XMS_ITS | Encounter Summary ---
:1950 Author Organization [facility] Address [address] [place] [address] Care Team Providers Name Role Phone Yosi Graham EDER Primary Care Provider [phone] Reason for Visit Reason Comments Post-OP Follow Up Encounter Details Date Type Department Care Team Description 05/23/2022 Post-op Visit [facility] Jacky Blanchard MD Chorioretinal scar Ophthalmology - [address] detachment surgery 111 [facility] (Primary Dx) [place] [address] [place], [place] [id number] Social History Tobacco Use Types Packs/Day Years [...] encounter Progress Notes Jacky Blanchard MD - 05/23/2022 0900 EDT Chief Complaint Patient presents with ??? Post-OP Follow Up Comments 1 week post op follow up for PPV, SOR, FAX right eye for recurrent RD. Vision is improving, no eye pain. No new flashes or floaters. Using drops as directed HPI Location: Right eye Pain: 0 - No pain Quality: Blurry Severity: Moderate Duration: Months Timing: Constant Lasts: Continuous Context: 1 week post-op. Recurrent RD repair right eye. S/p PPVx, SO removal, gas right 05/15/22. Modifying factors: Ocuflox 4/-, PF 4/- Associated Signs & Symptoms: Vision is improving, no eye pain. No new flashes or floaters. Visual Fluctuations: None Attestation: Base Eye Exam Visual Acuity (Snellen - Linear) Right Left Dist sc 20/80 -2 Dist cc 20/25 Dist ph sc 20/60 -2 Tonometry (Applanation, 9:30) Right Left Pressure 14 Neuro/Psych Oriented x3: Yes Mood/Affect: Normal Dilation Right eye: Tropicamide 1%, Phenylephrine 2.5% @ 9:30 Slit Lamp and Fundus Exam Slit Lamp Exam Right Left Lids/Lashes Normal Normal Conjunctiva/Sclera White and quiet White and quiet Cornea Descemet's folds Clear Anterior Chamber Deep and quiet Deep and quiet Iris Dilated and temporal synechiae @ 6 & 10 Round and reactive Lens Posterior chamber intraocular lens, PCO 1+ Cortical cataract Vitreous 30 % air fill clear Fundus Exam Right Left Disc 2+ Pallor Macula flat Periphery attached over SB with 360 laser Please refer to large retinal drawing. IMAGING: OCT, Retina - OD - Right Eye Quality was good. Progression has been stable. Findings include intraretinal fluid, lamellar hole. DIAGNOSES: 1. 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 +/- Epiciliary membrane? No hypotony ?? Continue Prednisolone drops QID right eye Stop Ofloxacin drops NO restrictions F/u in 1 week I have reviewed the past medical, family, [...] he is personally performing the service. DWIGHT Martinez (Scribe) documented in this encounter Plan of Treatment Upcoming Encounters Date Type Specialty Care Team Description 07/12/2022 Post-op Visit Ophthalmology Jacky Blanchard MD [address] [phone] (Wo rk) 07/18/2022 Office Visit Urology Jose Carlos Fisher MD [address] [phone] (Wo rk) documented as of this encounter Procedures Procedure Name Priority Date/Time Associated Diagnosis Comme nts OCT, RETINA - OD - Routine 05/23/2022 9:53 Chorioretinal scar Results for this RIGHT EYE EDT after retinal procedure are in detachment surgery the resul ts section. documented in this encounter Results OCT, RETINA - OD - RIGHT EYE (05/23/2022 9:53 EDT) Specimen (Source) Anatomical Location Collection Method / Collectio n Time Received Time / Laterality Volume Narrative [facility] OPHTHALMOLOGY - 05/23/2022 9:58 ED T Quality was good. Progression has been stable. Findings include intraretinal fluid, lamellar hole. Jacky Blanchard MD OPHTH TOMOGRAPHY Performing Organization Address City/State/ZIP Code Phon e Number [facility] OPHTHALM[facility]Y documented in this encounter Visit Diagnoses Diagnosis 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 - Primary documented in this encounter Eye Exam Visual Acuity (Snellen - Linear) Right eye Left eye Dist sc 20/80 -2 Dist cc 20/25 Dist ph sc 20/60 -2 Tonometry (Applanation, 9:30) Right eye Left eye Pressure 14 Neuro/Psych Oriented x3: Yes Mood/Affect: Normal Dilation Right eye: Tropicamide 1%, Phenylephrine 2.5% @ 9:30 Slit Lamp Exam Right eye Left eye Lids/Lashes Normal Normal Conjunctiva/Sclera White and quiet White and quiet Cornea Descemet's folds Clear Anterior Chamber Deep and quiet Deep and quiet Iris Dilated and temporal synechiae @ 6 & 10 Round and reactive Lens Posterior chamber intraocular lens, PCO 1+ Cortical cataract Vitreous 30 % air fill clear Fundus Exam Right eye Left eye Disc 2+ Pallor Macula flat Periphery attached over SB with 360 laser Care Teams Edging Machine Feeder Relationship Specialty Start Date End Date Yosi Graham, RPA PCP - General Family Medicine - Primary 04/10/[address] [place] [phone] documented as of this encounter
--- OUTSIDE RECORDS SUMMARY | 2022-07-05 02:46 | XMS_ITS | Encounter Summary ---
:1950 Author Organization [facility] Address [address] [place] [address] Care Team Providers Name Role Phone Sweetie Gonzales Primary Care Provider Encounter Details Date Type Department Care Team Description 02/27/2022 Orders Only [facility] Laura Chase MD Radiology - Main Cam pus 111 [facility] [address] [place], [place] [id number] [place] [id number] [phone] Social History Tobacco Use Types Packs/Day Years [...] making decisions? documented as of this encounter Plan of Treatment Upcoming Encounters Date Type Specialty Care Team Description 07/12/2022 Post-op Visit Ophthalmology Jacky Blanchard MD 111 [facility], Level [address] [place], [place] [phone] (Wo rk) 07/18/2022 Office Visit Urology Jose Carlos Fisher MD 111 [facility] 5 [place], [place] [phone] (Wo rk) documented as of this encounter Visit Diagnoses Not on filedocumented in this encounter Care Teams Private Banker Relationship Specialty Start Date End Date Sweetie Gonzales PCP - General Family Medicine - Primary 12/18/21 04/09/[address] [place] [address] [place] [phone] documented as of this encounter
--- OUTSIDE RECORDS SUMMARY | 2022-07-05 02:46 | XMS_ITS | Encounter Summary ---
:1950 Author Organization [facility] Address [address] [place] [address] Care Team Providers Name Role Phone Yosi Graham [facility] Primary Care Provider [phone] Reason for Visit Auth/Cert Specialty Diagnoses / Procedures Referred By Contact Refer red To Contact Diagnoses Retinal detachment, right Retinal detachment, right [H33.21] Procedures IN VITRECTOMY,MECHANICAL [place] Vitrectomy and Silicone Oil Removal, RIGHT EYE Referral ID Status Reason Start Date Expiration Date Visits Requ ested Visits Authorized [id number] 1 1 Encounter Details Date Type Department Care Team Description 05/15/2022 Anesthesia Event [facility] Operating Room Leonarda Rodrigues MD [address] [place] [address], [place] [phone] (Wo rk) Anesthesia Record Procedure Summary Procedure Name Responsible Anesthesia Start Anesthesia Stop Anesthesiologist Time Time Pars Plana Leonarda Rodrigues MD 05/15/22 0905/15/22 10 36 Vitrectomy and Silicone Oil Removal, RIGHT EYE (Right: Eye) Events Date Time Event Comment 05/15/2022 0929 An Start The patient was re-evaluated immediately before moderate or deep sedation use, before anesthesia induction, or be fore the anesthesia procedure. 0929 An Start Data 0939 Anesthesia Ready 1028 an stop data 1036 Handoff to RN I completed my h andoff to the receiving nurse during which we: 1. Eddie ntified the patient 2. Identified the responsible provider 3. Reviewed the pertinent medical history 4. Discussed the surgical course 5. Reviewed intra-o p anesthesia management and issues during anesthesi a 6. Set expectations for post-procedure p eriod 7. Allowed opportunity for questions and ac knowledgement of understanding. 1036 An Stop Name Total fentanyl citrate (PF) injection 50 mcg lidocaine 2% (PF) injection glass vial 60 mg midazolam 1 mg/mL 2 mL vial 1 mg propOFol (DIPRIVAN) injection 100 mg lactated ringers (LR) infusion 200 mL Agents Name O2 N2O Air Aux O2 flow Blood No blood administrations on file. Lines, Drains, and Airways Type Details Placement Removal Wound 02/11/22; Incision; Right; 02/11/22 0000 by Eye Mara Truong, applications processor 05/15/22; 0948; Right; Eye 05/15/22 0948 by Zoie Muhammad, STUART Peripheral IV 05/15/22; 0731; 20; 1.25; B 05/15/22 0731 by 07/25 1044 by Mccoy Introcan; Left, Mandi Sesay RN Khan, Erick cramer RN Posterior; Hand; Inserted by RN; 1; None; 2% Chlorhexidine with IPA; 05/15/22; 1044; Discharged, Per order; No complications, Catheter intact, Dressing applied documented in this encounter Social History Tobacco [...] making decisions? documented as of this encounter OR Notes Anesthesia Postprocedure Evaluation - Eduardo Parkinson CRNA - 05/15/2022 1037 EDT Patient: Po Annaovan Vital signs were reviewed with the recovery nurse. Complete vitals history is available in the Epic flowsheets. Vitals Value Taken Time BP 136/79 05/15/22 1030 Temp 36.9 ??C (98.4 ??F) 05/15/22 1030 Resp 18 05/15/22 1036 Pulse From Oximetry 58 BPM 05/15/22 1036 SpO2 98 % 05/15/22 1036 Heart Rate 57 BPM 05/15/22 1036 Vitals shown include unvalidated device data. Last Pain Score - Numeric Pain Level (Scale 1-10): 0 Type of Anesthesia - MAC Anesthesia Post Evaluation Level of consciousness: alert and oriented and awake Temperature status: normothermia Respiratory status: airway patent Cardiovascular status: acceptable Hydration status: adequate Nausea/Vomiting: none Pain management: adequate Post-Op Assessment: patient tolerated procedure well with no complications Patient participation: able to participate Disposition: outpatient/home Anesthesia Complications: No apparent anesthesia complications Anesthesia Preprocedure Evaluation - Leonarda Rodrigues MD - 05/15/2022 0813 EDT Anesthesia Preprocedure Evaluation Patient Medical History, including Anesthesia History reviewed. Chart and Nursing Notes reviewed, including NPO status and Medication History. Additional ROS/History Findings: No Known Allergies Review of Systems Constitutional: Negative. Respiratory: Negative. Negative for cough and shortness of breath. Cardiovascular: Negative for chest pain, palpitations and orthopnea. S/P VALVE REPLACEMENT ASX. Gastrointestinal: Negative. Genitourinary: Negative. Endo/Heme/Allergies: Negative. Past Medical History: Diagnosis Date ??? Activity, other involving cardiorespiratory exercise 01/14/22 1-2 FOS without getting SOB ??? 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 Cancer ([facility]) (HCC) prostate per biopsy around 2017, monitored by urologist, no surgery at this [...] of eye and adnexa ??? Wears glasses Relevant Problems No relevant active problems Physical Exam Airway Mallampati: II TM distance: <3 FB Neck ROM: full Cardiovascular Rhythm: regular Rate: normal Dental Pulmonary Breath sounds clear to auscultation Abdominal - normal exam Anesthesia Plan ASA 3 Anesthesia Type - MAC Block for post-op pain? No Anesthesia plan and risks discussed. Informed consent obtained from patient. Specific risks discussed were headache and other. Code status discussed? No Plan retrobulbar block with MAC. PAT Note Notes from 04/15/22 through 05/15/22 No notes of this type exist for this encounter. documented in this encounter Plan of Treatment Upcoming Encounters Date Type Specialty Care Team Description 07/12/2022 Post-op Visit Ophthalmology Jacky Blanchard MD [address] [phone] (Wo rk) 07/18/2022 Office Visit Urology Jose Carlos Fisher MD [address] [phone] (Wo rk) documented as of this encounter Visit Diagnoses Not on filedocumented in this encounter Administered Medications Inactive Administered Medications - up to 3 most recent administrations Medication Order MAR Action Action Date Dose Rate Site fentaNYL citrate (PF) injection Given 05/15/2022 9:32 EDT 50 mcg intravenous, PRN, Starting on Fri05/15/22 at 0932, Until Fri05/15/22 at 1036, Routine, Anesthesia Intraprocedure lactated ringers (LR) Continued by Anesthesia 05/15/2022 9:29 EDT 30 mL/hr infusion 30 mL/hr, intravenous, CONTINUOUS, Starting on Fri05/15/22 at 0745, Until Fri05/15/22 at 1253, Routine, Preprocedure New Bag 05/15/2022 7:31 EDT 30 mL/hr 30 mL/hr lidocaine (PF) 20 mg/mL (2 %) injection Given 05/15/2022 9:32 EDT 60 mg intravenous, PRN, Starting on Fri05/15/22 at 0932, Until Fri05/15/22 at 1036, Routine, Anesthesia Intraprocedure midazolam (PF) (VERSED) injection Given 05/15/2022 9:32 EDT 1 mg intravenous, PRN, Starting on Fri05/15/22 at 0932, Until Fri05/15/22 at 1036, Routine, Anesthesia Intraprocedure propOFol (DIPRIVAN) injection Given 05/15/2022 9:34 EDT 20 mg intravenous, PRN, Starting on Fri05/15/22 at 0932, Until Fri05/15/22 at 1036, Routine, Anesthesia Intraprocedure Given 05/15/2022 9:33 EDT 40 mg Given 05/15/2022 9:32 EDT 40 mg documented in this encounter Care Teams Sock Liner Relationship Specialty Start Date End Date Yosi Graham, EDER PCP - General Family Medicine - Primary 04/10/[address] [phone] documented as of this encounter
--- OUTSIDE RECORDS SUMMARY | 2022-07-05 02:46 | XMS_ITS | Encounter Summary ---
:1950 Author Organization [facility] Address [address] [place] [id number] Care Team Providers Name Role Phone Sweetie Gonzales Primary Care Provider Reason for Visit Auth/Cert Specialty Diagnoses / Procedures Referred By Contact Refer red To Contact Diagnoses Retinal detachment, right Procedures GA RPR COMPLEX RETINA DETACH VITRECT &MEMBRANE PEEL REPAIR, RETINAL DETACHMENT, COMPLEX, WITH VITRECTOMY AND MEMBRANE PEELING Referral ID Status Reason Start Date Expiration Date Visits Requ ested Visits Authorized [id number] 1 1 Encounter Details Date Type Department Care Team Description 02/11/2022 Anesthesia Event [facility] OR Jh Alex MD [address] [phone] [place] [address] Eduardo Conti CRNA [address] [phone] [place], [place] [id number] Anesthesia Record Procedure Summary Procedure Name Responsible Anesthesia Start Anesthesia Stop Time Anesthesiologist Time REPAIR, RETINAL Jh Alex MD 02/11/221751 2 1940 DETACHMENT, COMPLEX, WITH VITRECTOMY, LASER AND MEMBRANE PEELING (Right: Eye) Events Date Time Event Comment 02/11/20221751 An Start The patient was re-evaluated immediately before moderate or deep sedation use, before anesthesia induction, or be fore the anesthesia procedure. 1751 An Start Data 1758 Anesthesia Ready 1935 an stop data 1939 Handoff to RN I completed my h [...] for questions and ac knowledgement of understanding. 1939 An Stop Name Total lidocaine 2% (PF) injection glass vial 60 mg midazolam 1 mg/mL 2 mL vial 1 mg propOFol (DIPRIVAN) injection 80 mg lactated ringers (LR) infusion 300 mL Agents Name O2 N2O Air Aux O2 flow Blood No blood administrations on file. Lines, Drains, and Airways Type Details Placement Removal Wound 02/11/22; Incision; Right; 02/11/22 0000 by Eye Mara Truong RN Peripheral IV 02/11/22; 1622; 20; 1.25; 02/11/22 1622 by Mey, 02/11/221958 by Left, Posterior; Forearm; STUART Wasserman, STUART [place] 1; None; 2% Chlorhexidine with IPA; 02/11/22; 1958; Discharged; Catheter intact documented in this encounter Social History Tobacco [...] encounter OR Notes Anesthesia Postprocedure Evaluation - Ana Fischer AA - 02/11/20221939 EDT Patient: Po Matthews Vital signs were reviewed with the recovery nurse. Complete vitals history is available in the Epic flowsheets. Vitals Value Taken Time BP 151/83 02/11/221939 Temp 37.1 02/11/221939 Resp 15 02/11/221939 Pulse From Oximetry 76 BPM 02/11/221939 SpO2 95 % 02/11/221939 Heart Rate 59 BPM 02/11/221939 Vitals shown include unvalidated device data. Patient report to [employer]ING; VSS; Please see PACU vital signs Last Pain Score - Numeric Pain Level (Scale 1-10): 0 Type of Anesthesia - MAC Anesthesia Post Evaluation Post-procedure vitals reviewed and are stable. Level of consciousness: awake and alert and oriented Temperature status: normothermia Respiratory status: airway patent, nasal cannula and stable Cardiovascular status: appropriate for condition, acceptable and stable Hydration status: adequate Nausea/Vomiting: none Pain management: adequate Post-Op Assessment: patient tolerated procedure well with no complications and patient satisfied with anesthesia care Patient participation: able to participate Disposition: outpatient/home Anesthesia Complications: No apparent anesthesia complications Anesthesia Preprocedure Evaluation - Ana Fischer AA - 02/11/2022 1716 EDT Anesthesia Preprocedure Evaluation NPO CONFIRMED NO ISSUES WITH PREVIOUS ANESTHETICS HTN: ON LISINOPRIL AND METOPROLOL (TAKEN TODAY AM) ON ASA AND STATIN S/P AV REPLACEMENT 2014 ACTIVE; METS >4 Patient Medical History, including Anesthesia History reviewed. Chart and Nursing Notes reviewed, including NPO status and Medication History. Additional ROS/History Findings: No Known Allergies Review of Systems Constitutional: Negative for chills and fever. Respiratory: Negative for cough and shortness of breath. Cardiovascular: Negative for chest pain. Gastrointestinal: Negative for heartburn and nausea. Past Medical History: Diagnosis Date ??? Activity, other involving cardiorespiratory exercise 01/14/22 1-2 FOS without getting SOB ??? 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 Cancer ([facility]CC[facility]) (HCC) prostate per biopsy around 2016, monitored by urologist, no surgery at this time per pt 12/18/21. ??? Elevated prostate specific antigen (PSA) ??? [...] 01/14/22: well controlled with meds, 130s/70s ??? Wears glasses Relevant Problems No relevant active problems Physical Exam Airway Mallampati: III TM distance: >3 FB Neck ROM: full Comments: KAUR Cardiovascular - normal exam Rhythm: regular Rate: normal Dental - normal exam Pulmonary Breath sounds clear to auscultation Abdominal (+) obese Anesthesia Plan ASA 3 Anesthesia Type - MAC Anesthesia plan and risks discussed. Informed consent obtained from patient. Specific risks discussed were vomiting, nausea and dental injury. The preoperative history and physical which was performed within 30 days of this procedure, has beenreviewed and the clinically appropriate elements of the physical examination have been repeated. There are no changes to the documented history and physical or, if so, such changes are documented in this note PAT Note Notes from 01/12/22 through 02/11/22 No notes of this type exist for this encounter. documented in this encounter Plan of Treatment Upcoming Encounters Date Type Specialty Care Team Description 07/12/2022 Post-op Visit Ophthalmology Jacky Blanchard MD [address] [phone] (Wo angel) 07/18/2022 Office Visit Urology Jose Carlos Fisher MD [address] [phone] (Wo angel) documented as of this encounter Visit Diagnoses Not on filedocumented in this encounter Administered Medications Inactive Administered Medications - up to 3 most recent administrations Medication Order MAR Action Action Date Dose Rate Site lactated ringers (LR) infusion Restarted 02/11/2022 17:52 EDT 30 mL/hr, intravenous, CONTINUOUS, Starting on Fri02/11/22 at 1615, Until Fri02/11/22 at 2210, Routine, Preprocedure New Bag 02/11/2022 16:26 EDT 30 mL/hr 30 mL/hr lidocaine (PF) 20 mg/mL (2 %) injection Given 02/11/2022 17:59 EDT 60 mg intravenous, PRN, Starting on Fri02/11/22 at 1759, Until Fri02/11/22 at 1940, Routine, Anesthesia Intraprocedure midazolam (PF) (VERSED) injection Given 02/11/2022 17:55 EDT 1 mg intravenous, PRN, Starting on Fri02/11/22 at 1755, Until Fri02/11/22 at 1940, Routine, Anesthesia Intraprocedure propOFol (DIPRIVAN) injection Given 02/11/2022 17:59 EDT 80 mg intravenous, PRN, Starting on Fri02/11/22 at 1759, Until Fri02/11/22 at 1940, Routine, Anesthesia Intraprocedure documented in this encounter Care Teams Manager Fiber Relationship Specialty Start Date End Date Sweetie Gonzales PCP - General Family Medicine - Primary 12/18/21 04/09/[address] [place] [address] ELIECER Juarez [phone] documented as of this encounter
--- OUTSIDE RECORDS SUMMARY | 2022-07-05 02:47 | XMS_ITS | Encounter Summary ---
:1950 Author Organization [facility] Address [address] [place] [address] Care Team Providers Name Role Phone Yosi Graham EDER Primary Care Provider Reason for Visit Reason Comments Post-OP Follow Up Encounter Details Date Type Department Care Team Description 07/20/2021 Post-op Visit [facility] Jacky Blanchard MD Retinal detachment Ophthalmology - Main [address] [place] [address] multiple retinal 111 [facility] tears (Primary Dx) [place] [address] [address], [place] [phone] (Wo rk) Social History Tobacco Use Types Packs/Day Years Used Date Smoking Tobacco: Never Smokeless Tobacco: Never Alcohol Use Standard Drinks/Week Comments Yes 1 (1 standard drink = 0.6 oz pure [...] encounter Progress Notes Jacky Blanchard MD - 07/20/2021 1015 EST Chief Complaint Patient presents with ??? Post-OP Follow Up Comments Pt here for 1 week post-op for RD repair right, VH right S/P SB,PPv,EL,SF6,STK (07-11-21) right Gtts: PF 4/-, Ocuflox 4/- VA improving right eye, bubble getting smaller line keeps getting lower Tiny floaters right eye. No flashes. No pain HPI Location: Right eye Pain: 0 - No pain Quality: Blurry Severity: Moderate Duration: Days Timing: Constant Lasts: Continuous Context: VA improving right eye, bubble getting smaller line keeps getting lower Tiny floaters right eye. No flashes. No pain Modifying factors: S/P SB,PPv,EL,SF6,STK (07-11-21) right Associated Signs & Symptoms: RD-right VH-right Visual Fluctuations: Floaters Attestation: Base Eye Exam Visual Acuity (Snellen - Linear) Right Left Dist cc 20/200 20/40 -2 Dist ph cc 20/100 -2 NI Correction: Glasses Tonometry (Applanation, 10:55) Right Left Pressure 16 16 Neuro/Psych Oriented x3: Yes Mood/Affect: Normal Dilation Right eye: Phenylephrine 2.5%, Tropicamide 1% @ 10:55 Slit Lamp and Fundus Exam Slit Lamp Exam Right Left Lids/Lashes Normal Conjunctiva/Sclera well closed peritomy, vicryl sutures Cornea Clear Anterior Chamber rare cell Iris Dilated Lens feathering Vitreous 50% gas fill Fundus Exam Right Left Disc Healthy Rim Macula Flat Vessels Normal Periphery Retina attached w/ 360 laser encircling retinal tears Please refer to large retinal drawing. IMAGING: DIAGNOSES: 1. Retinal detachment of right eye with multiple retinal tears Assessment Retina attached s/p12/ SB,PPV,EL,SF6, STK for VH and RD/RT Good IOP 50% gas fill Sleep left ear down, no positioning required during the day Continue Predforte QID D/C Ocuflox Return in about 3 weeks (around 08/10/2021), or if symptoms worsen or fail to [...] Visit Ophthalmology Jacky Blanchard MD [address] [phone] (Wo rk) 07/18/2022 Office Visit Urology Jose Carlos Fisher MD [address] [phone] (Wo rk) documented as of this encounter Visit Diagnoses Diagnosis Retinal detachment of right eye with mul tiple retinal tears - Primary documented in this encounter Eye Exam Visual Acuity (Snellen - Linear) Right eye Left eye Dist cc 20/200 20/40 -2 Dist ph cc 20/100 -2 NI Correction: Glasses Tonometry (Applanation, 10:55) Right eye Left eye Pressure 16 16 Neuro/Psych Oriented x3: Yes Mood/Affect: Normal Dilation Right eye: Phenylephrine 2.5%, Tropicami de 1% @ 10:55 Slit Lamp Exam Right eye Left eye Lids/Lashes Normal Conjunctiva/Sclera well closed peritomy, vicryl sutures Cornea Clear Anterior Chamber rare cell Iris Dilated Lens feathering Vitreous 50% gas fill Fundus Exam Right eye Left eye Disc Healthy Rim Macula Flat Vessels Normal Periphery Retina attached w/ 360 laser encircling retinal tears Care Teams Collector Of Internal Revenue Relationship Specialty Start Date End Date Yosi Graham, RPA PCP - General 07/05/16 12/17/[address] [address] documented as of this encounter
--- OUTSIDE RECORDS SUMMARY | 2022-07-05 02:47 | XMS_ITS | Encounter Summary ---
:1950 Author Organization [facility] [place] [facility] Address [address] [place] [id number] Care Team Providers Name Role Phone Sweetie Gonzales Primary Care Provider Reason for Visit Reason Comments Eye Problem Encounter Details Date Type Department Care Team Description 01/01/2022 Office Visit [facility] Jacky Blanchard MD Ophthalmology - [address], [address], [address] [place], [place] [id number] [place] [address] [phone] (Wo rk) Social History Tobacco Use [...] encounter Progress Notes Jacky Blanchard MD - 01/01/2022 1100 EDT Chief Complaint Patient presents with ??? Eye Problem Comments 18 day f/u. RD repair right eye. S?p PPV, EL, SO . PVR +/- TRD right eye. S/p CE+IOL right eye12/24/21. Vision still seems blurry, assumes it's because of the silicone oil. No pain, flashes, or floaters. Gtts: PF 4/- Ketorolac 4/-, and Moxifloxacin 4/-. HPI Location: Both eyes Pain: 0 - No pain Quality: Blurry Severity: Moderate Duration: Years Timing: Constant Lasts: Continuous Context: 18 day f/u. RD repair right eye. S?p PPV, EL, SO . PVR +/- TRD right eye. S/p CE+IOL right eye 12/24/21. Vision still seems blurry, assumes it's because of the silicone oil. No pain, flashes, or floaters. Gtts: PF 4/- Ketorolac 4/-, and Moxifloxacin 4/-. Modifying factors: Glasses. S/P RD repair right 10/10/21. S/p CE+IOL right 12/24/21.Gtts: PF 4/- Ketorolac 4/-, and Moxifloxacin 4/-. Associated Signs & Symptoms: Vision still seems blurry, assumes it's because of the silicone oil. No pain, flashes, or floaters. Visual Fluctuations: None Attestation: Base Eye Exam Visual Acuity (Snellen - Linear) Right Left Dist cc 20/150 -1 20/25 -1 Dist ph cc 20/70 -2 Correction: Glasses Tonometry (Applanation, 11:52) Right Left Pressure 18 20 Pupils Pupils Dark Light Shape React APD Right PERRL 5 Round Minimal None Left PERRL 3 2 Round Brisk None Extraocular Movement Right Left Full, Ortho Full, Ortho Neuro/Psych Oriented x3: Yes Mood/Affect: Normal Dilation Right eye: Tropicamide 1%, Phenylephrine 2.5% @ 11:52 Slit Lamp and Fundus Exam Slit Lamp Exam Right Left Lids/Lashes Normal Normal Conjunctiva/Sclera conjunctival scarring White and quiet Cornea Clear, no epithelial defect Clear Anterior Chamber Deep and quiet Deep and quiet Iris Round and reactive dilated Lens Posterior chamber intraocular lens 1+ Cortical cataract Vitreous >90% silicone oil clear Fundus Exam Right Left Disc Healthy Rim Healthy Rim C/D Ratio 0.3 Macula flat Normal Vessels Normal Normal Periphery > 9 clock hours of PVR-TRD over SB anterior to 360 laser barricade; PVR @ 3 posterior to buckle barricaded with laser attached no predisposing lesion Please refer to large retinal drawing. DIAGNOSES: 1. Proliferative vitreoretinopathy of right eye 2. History of retinal detachment Assessment S/p RD repair right eye Stable 9 clock hours of PVR+/-TRD over SB anterior to 360 laser barricade??s/p 10/10/2021 PPV, EL, SO for recurrent retinal detachment?? s/p12/??SB,PPV,EL,SF6, STK for VH and RD/RT Offer PPVx. SO removal, retinectomy, oil vs gas right eye Pt agrees Return if symptoms worsen or fail to improve, for schedule PPVx, SO removal. retinectomy oil vs gas right eye. I have reviewed the past [...] Post-op Visit Ophthalmology Jacky Blanchard MD [address] [phone] (Wo rk) 07/18/2022 Office Visit Urology Jose Carlos Fisher MD [address] [phone] (Wo rk) documented as of this encounter Visit Diagnoses Diagnosis Proliferative vitreoretinopathy of right eye - Primary Other nondiabetic proliferative retinopa thy History of retinal detachment Personal history of other disorders of n ervous system and sense organs documented in this encounter Eye Exam Visual Acuity (Snellen - Linear) Right eye Left eye Dist cc 20/150 -1 20/25 -1 Dist ph cc 20/70 -2 Correction: Glasses Tonometry (Applanation, 11:52) Right eye Left eye Pressure 18 20 Pupils Pupils Dark Light Shape React APD Right eye PERRL 5 Round Minimal None Left eye PERRL 3 2 Round Brisk None Extraocular Movement Right eye Left eye Full, Ortho Full, Ortho Neuro/Psych Oriented x3: Yes Mood/Affect: Normal Dilation Right eye: Tropicamide 1%, Phenylephrine 2.5% @ 11:52 Slit Lamp Exam Right eye Left eye Lids/Lashes Normal Normal Conjunctiva/Sclera conjunctival scarring White and quiet Cornea Clear, no epithelial defect Clear Anterior Chamber Deep and quiet Deep and quiet Iris Round and reactive dilated Lens Posterior chamber intraocular lens 1+ Co rtical cataract Vitreous >90% silicone oil clear Fundus Exam Right eye Left eye Disc Healthy Rim Healthy Rim C/D Ratio 0.3 Macula flat Normal Vessels Normal Normal Periphery > 9 clock hours of PVR-TRD over SB attac hed no predisposing lesion anterior to 360 laser barricade; PVR @ 3 posterior to buckle barricaded with lase r Care Teams Office Assistance Relationship Specialty Start Date End Date Sweetie Gonzales PCP - General Family Medicine - Primary 12/18/21 04/09/[address] [place] [address] [place] [phone] documented as of this encounter
--- OUTSIDE RECORDS SUMMARY | 2022-07-05 02:47 | XMS_ITS | Encounter Summary ---
:[address] [facility] Address [address] [place] [address] Care Team Providers Name Role Phone Yosi Graham [facility] Primary Care Provider [phone] Reason for Visit Reason Comments Eye Problem Encounter Details Date Type Department Care Team Description 11/22/2021 Office Visit [facility] Rodney Sampson Ophthalmology - Tello Clark MD [phone] [place] [address], [place] [phone] (Wo rk) Social History Tobacco [...] Sig Dispensed Refills Start Date End Date moxifloxacin (VIGAMOX) Place 1 Drop into 3 mL 3 202112/25/2021 0.5 % ophthalmic solution the right eye 4 times daily. 1 drop QID 3 days prior to surgery and 10 days after ketOROLAC (ACULAR) 0.5 % Place 1 Drop into 10 mL 3 11/0312/25/2021 ophthalmic solution the right eye 4 times daily. 1 drop QID 3 days prior to surgery and 1 month after documented in this encounter Progress Notes Rodney Sampson MD - 11/22/2021 0745 EDT Department of Ophthalmology / Cataract/Cornea Office Visit Note Referring physician: no referring provider Local [facility] Dental Ceramist: Family Physician (PCP): Yosi Graham Other Physician: History of Present Illness: This HPI section must be documented by the physician (or scribe upon the dictation of the physician). It should not be documented independently by the gis mapping technician/scribe in the absence of the physician. Chief Complaint Patient presents with ??? Eye Problem HPI 71 year old man here at the request of Dr. Blanchard for cataract evaluation for his right eye. He underwent retinal detachment repair for his right eye on 07/11/21, with pars plana vitrectomy, a scleral buckle, retinal laser, SF6, and a subtenons Kenalog injection. He experienced recurrence of retinal detachment (a macula-off RD) affecting his right eye, and underwent pars plana vitrectomy, with endolaser and placement of silicone oil on 10/10/21. He has proliferative vitreoretinopathy in his right eye. The patient notes that vision in his right eye has been 'blurry' since 10/07/21, when he developed the recurrent retinal detachment. He denies eye pain, flashes of light or floaters. Using Pred forte qid right eye. EXAMINATION: Base Eye Exam Visual Acuity (Snellen - Linear) Right Left Dist cc 20/400 20/25 +2 Dist ph cc 20/150 Correction: Glasses Tonometry (Applanation, 7:53) Right Left Pressure 16 20 Pupils Dark Light APD Right 4 3 None Left 4 3 None Extraocular Movement Right Left Full Full Neuro/Psych Oriented x3: Yes Mood/Affect: Normal Dilation Both eyes: Phenylephrine 2.5%, Tropicamide 1% @ 7:53 Slit Lamp and Fundus Exam Slit Lamp Exam Right Left Lids/Lashes Ptosis Normal Conjunctiva/Sclera conjunctival sutures White and quiet Cornea few guttata, + epithelial lines, 1+ Punctate epithelial erosions few guttata, + epithelial lines Anterior Chamber Deep and quiet Deep and quiet Iris 7.0 mm pupil post-dilation 6.5 mm pupil post-dilation Lens 2+ Cortical cataract, 4+ Nuclear sclerosis, 3+ Posterior subcapsular cataract, no pseudoexfoliation, no phacodonesis noted 2+ Cortical cataract, 3+ Nuclear sclerosis, no pseudoexfoliation Vitreous Normal, hazy view Posterior vitreous detachment Fundus Exam Right Left C/D Ratio 0.4 0.6 Macula irregular foveal reflex Normal Vessels Normal Normal Periphery scleral buckle, peripheral scarring Normal Refraction Wearing Rx Sphere Cylinder [place] Add Right +1.00 +1.00 145 +2.50 Left +1.25 +1.75 165 +2.50 Type: PAL OPHTHALMOLOGY TESTING: [To insert test results, first enter the results in Doc Flowsheet and then use dot phrase .OPHTESTEXAM to choose the results module(s) to pull into this note] IMPRESSION / PLAN: Encounter Diagnoses Name Primary? Mixed type age-related cataract, both eyes Yes ??? 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 New prescription eyeglasses would not improve visual acuity or quality of vision to an acceptable level, while cataract surgery might achieve this, and the procedure is necessary to allow for improved visualization for upcoming vitreoretinalprocedures, due to his history of recurrent retinal detachment and proliferative vitreoretinopathy. The prognosis for recovery of visual acuity in his right eye is unclear, as recovery of visual acuitywill be limited by a history of a macula-off retinal detachment. Plan: Offer cataract surgery right eye, likely with placement of a three-piece posterior chamber intraocular lens with a plano refractive target. An IOLMaster scan was done previously, but was done when a macula-off retinal detachment was present, and we will obtain another scan (using 'silicone oil' settings) - the scan is necessary for determination of the power of the intraocular lens to be placed at the time of cataract surgery. Discussed cataract surgery with risks and benefits including: pain, infection, bleeding, retinal tear or detachment, ocular hypertension / glaucoma, dislocation of crystalline lens material and/or the intraocular lens implant into the vitreous cavity, posterior capsular opacification and need for addit ional surgical procedures / laser treatment in future. The patient wishes to proceed with cataract surgery for the right eye, and likely will not undergo cataract surgery for his left eye at this point. I do not recommend that any anticoagulants be held perioperatively, as the risk of bleeding complications with cataract surgery done with topical anesthesia is very low, with or without anticoagulants. We will plan for the patient to use topical moxifloxacin (Vigamox) and ketorolac (Acular) before andafter surgery, and he will continue using prednisolone acetate 1% ophthalmic gtt. We will plan for him to be seen by Dr. Blanchard postoperatively, to determine the plan for additional vitreoretinal procedures. Scribe Attestation: I am scribing for Rodney Sampson MD while he is personally performing the service. Yessi Rodriguez COA (Scribe) Time spent: documented in this encounter Plan of Treatment Upcoming Encounters Date Type Specialty Care Team Description 07/12/2022 Post-op Visit Ophthalmology Jacky Blanchard MD [address] [phone] (Wo rk) 07/18/2022 Office Visit Urology Jose Carlos Fisher MD [address] [phone] (Wo rk) documented as of this encounter Visit Diagnoses Diagnosis Mixed type age-related cataract, both ey es - Primary Retinal detachment of right eye with mul tiple retinal tears documented in this encounter Eye Exam Visual Acuity (Snellen - Linear) Right eye Left eye Dist cc 20/400 20/25 +2 Dist ph cc 20/150 Correction: Glasses Tonometry (Applanation, 7:53) Right eye Left eye Pressure 16 20 Pupils Dark Light APD Right eye 4 3 None Left eye 4 3 None Extraocular Movement Right eye Left eye Full Full Neuro/Psych Oriented x3: Yes Mood/Affect: Normal Dilation Both eyes: Phenylephrine 2.5%, Tropicami de 1% @ 7:53 Slit Lamp Exam Right eye Left eye Lids/Lashes Ptosis Normal Conjunctiva/Sclera conjunctival sutures White and quiet Cornea few guttata, + epithelial few guttata, + epithelial lines lines, 1+ Punctate epithelial erosions Anterior Chamber Deep and quiet Deep and quiet Iris 7.0 mm pupil post-dilation 6.5 mm pupil post-dilation Lens 2+ Cortical cataract, 4+ 2+ Cortical cat aract, 3+ Nuclear Nuclear sclerosis, 3+ Posterior sclerosi s, no pseudoexfoliation subcapsular cataract, no pseudoexfoliation, no phacodonesis noted Vitreous Normal, hazy view Posterior vitreous d etachment Fundus Exam Right eye Left eye C/D Ratio 0.4 0.6 Macula irregular foveal reflex Normal Vessels Normal Normal Periphery scleral buckle, peripheral scarring Norm al Wearing Rx Sphere Cylinder [place] Add Right eye +1.00 +1.00 145 +2.50 Left eye +1.25 +1.75 165 +2.50 Type: PAL Care Teams Side Show Entertainer Relationship Specialty Start Date End Date Yosi Graham, EDER PCP - General 07/05/16 12/17/21 185 [facility] [address] [place] [address] documented as of this encounter
--- OUTSIDE RECORDS SUMMARY | 2022-07-05 02:47 | XMS_ITS | Encounter Summary ---
:1950 Author Organization [facility] Address [address] [place] [address] Care Team Providers Name Role Phone Sweetie Gonzales Primary Care Provider Reason for Visit Reason Comments Eye Problem Auth/Cert Specialty Diagnoses / Procedures Referred By Contact Refer red To Contact Diagnoses Retinal detachment, right Procedures SD RPR COMPLEX RETINA DETACH VITRECT &MEMBRANE PEEL REPAIR, RETINAL DETACHMENT, COMPLEX, WITH VITRECTOMY AND MEMBRANE PEELING Referral ID Status Reason Start Date Expiration Date Visits Requ ested Visits Authorized [id number] 1 1 Encounter Details Date Type Department Care Team Description 02/11/[address] [facility] Jh Mancia MD Ophthalmology - [address], [address], [address] [place], [place] [address] [place] [address] [phone] (Wo rk) Social History Tobacco Use [...] documented as of this encounter Progress Notes Jh Mancia MD - 02/11/2022 1230 EDT Chief Complaint Patient presents with ??? Eye Problem Comments New shadow inferior right eye vision since Friday afternoon. Hx of HPI Location: Right eye Pain: Quality: Blurry Severity: Severe Duration: Days Timing: Constant Lasts: Continuous Context: New shadow starting in inferior right eye vision since Friday afternoon. has progressed some since. no flashes. has a few floaters early in the week Modifying factors: left eye vision stable Associated Signs & Symptoms: Visual Fluctuations: Floaters Attestation: Base Eye Exam Visual Acuity (Snellen - Linear) Right Left Dist sc 20/60 Dist cc 20/20 -1 Tonometry (Applanation, 12:45) Right Left Pressure 14 21 Visual Marcus Right Left Restrictions Total inferior temporal, inferior nasal deficiencies Dilation Right eye: Phenylephrine 2.5%, Tropicamide 1% @ 12:45 Slit Lamp and Fundus Exam Slit Lamp Exam Right Left Anterior Chamber Cell, Flare Fundus Exam Right Left Disc Healthy Rim Macula attached Periphery retina detached 12-9, SB, surface PVR @ 9, contraction at 12 All five layers of the cornea are normal unless otherwise specified. Please refer to large retinal drawing. IMPRESSION: 1. 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 Blanchard Pt agrees History: S/p 01/21/2022 PPVx, SO removal right eye S/p 12/24/2021 CE+IOL s/p 10/10/2021 PPV, EL, SO for recurrent retinal detachment?? s/07/21/2021??SB, PPV, EL, SF6, STK for VH and RD/RT S/p 03/21/2021 and 03/28/[address] peripheral [address] with 3 tears ?? Return in 1 day for post op I, Dr. Jh Mancia, have performed my own HPI and reviewed the tech's ROS. I have also reviewed the patient's past medical, family, social and surgical history, as well as the patient's medications, allergies, and problem list. I am scribing for Dr. Jh Mancia MD while he is personally performing the service. DWIGHT Lira (Scribe) documented in this encounter Plan of Treatment Upcoming Encounters Date Type Specialty Care Team Description 07/12/2022 Post-op Visit Ophthalmology Jacky Blanchard MD [address] [phone] (Wo rk) 07/18/2022 Office Visit Urology Jose Carlos Fisher MD [address] [phone] (Wo rk) documented as of this encounter Visit Diagnoses Diagnosis Retinal detachment of right eye with mul tiple retinal tears - Primary documented in this encounter Eye Exam Visual Acuity (Snellen - Linear) Right eye Left eye Dist sc 20/60 Dist cc 20/20 -1 Tonometry (Applanation, 12:45) Right eye Left eye Pressure 14 21 Visual Marcus Right eye Left eye Restrictions Total inferior temporal, inferior nasal deficiencies Dilation Right eye: Phenylephrine 2.5%, Tropicami de 1% @ 12:45 Slit Lamp Exam Right eye Left eye Anterior Chamber Cell, Flare Fundus Exam Right eye Left eye Disc Healthy Rim Macula attached Periphery retina detached 12-9, SB, surface PVR @ 9, contraction at 12 Care Teams Client Success Specialist Relationship Specialty Start Date End Date Sweetie Gonzales PCP - General Family Medicine - Primary 12/18/21 04/09/22 [facility] [phone] documented as of this encounter
--- OUTSIDE RECORDS SUMMARY | 2022-07-05 02:47 | XMS_ITS | Encounter Summary ---
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 Procedures ME RPR RETINAL DTCHMNT W/VITRECTOMY ANY METH RETINAL DETACH,W/VIT,INCL TAMP/LZ/CRY/DRN/LENS EXC Referral ID Status Reason Start Date Expiration Date Visits Requ ested Visits Authorized [id number] 07/10/2020 1 1 Encounter Details Date Type Department Care Team Description 12/24/2021 Hospital Encounter FA Operating Room Rodney Sampson [address] [place] [address] [place] [address] [place], [place] [phone] [facility], [facility] [address] [place] [phone] (Wo rk) Social History Tobacco Use Types Packs/Day Years Used Date Smoking Tobacco: Never Smokeless Tobacco: Never Alcohol Use Standard Drinks/Week Comments Yes 3 (1 standard drink = 0.6 oz pure alcoho l) Sex Assigned at Date Recorded Not on file documented as of this encounter Last Filed Vital Signs Vital Sign Reading Time Taken Comments Blood Pressure 156/94 12/24/2021 1315 EDT Pulse - - Temperature 36.6 ??C (97.9 ??F) 12/24/2021 1312 EDT Respiratory Rate 21 12/24/2021 1315 EDT Oxygen Saturation 98% 12/24/2021 1315 EDT Inhaled Oxygen Concentration - - Weight 97.6 kg (215 lb 2.7 oz) 12/24/2021 1101 EDT Height 167.6 cm (5' 5.98) 12/24/2021 1101 EDT Body Mass Index 34.75 12/24/2021 1101 EDT documented in this encounter Functional Status [...] as of this encounter Discharge Instructions Discharge InstructionsRodney Sampson MD - 12/24/2021 13:15 EDT Post Cataract Surgery Discharge Instructions Rodney Sampson MD Activity: ?? Keep your eye shield in place over your eye the day of surgery, except to place eye drops. After the 1st day, you only need to wear the shield at night for one week following surgery. It is ok to sleep on the operated side. ?? For 2 weeks do not bend over so that your head is below the level of your heart. Do not lift morethan 20 lbs for two weeks and 30 lbs for the following two weeks. ?? Avoid strenuous activity for two weeks. ?? Bathing and showering is ok, but avoid getting soap or shampoo in your eye. Eye Drops / Medications: ?? Use Tylenol or ibuprofen for mild discomfort, according to the package instructions. ?? Please use eye drops in the OPERATED eye as instructed ?? If your eye feels scratchy or irritated after surgery, you may use preservative free artificial tears as often as you need. Keep them cold in the refrigerator. ?? You may resume all medications you were taking prior to surgery, including blood thinners, and any eye drops you were using in the UN OPERATED eye. If you were using drops in the OPERATED eye prior to surgery, please discuss restarting these with your surgeon. General Instructions: ?? Please call our office if you experience fever, increased eye redness or pain, or nausea and vomiting. * A bandage contact lens was placed in your eye at the end of the surgical procedure. It is a lens which is soaked in antibiotics, which reduces the risk of infection. The lens normally dissolves after12 hours. If it falls out of the eye after the surgery, this is normal and you should not try to place it back in the eye. Please continue to use your eyedrops as instructed. Rodney Sampson MD documented in this encounter Medications at Time of Discharge Medication Sig Dispensed Refills Start Date End Date aspirin 81 mg EC tablet Take 81 mg by mouth 0 daily. lisinopriL (PRINIVIL) 30 Take 30 mg by mouth 0 mg tablet daily. metoprolol (LOPRESSOR) 25 Take 25 mg by mouth 0 mg tablet daily. pravastatin (PRAVACHOL) Take 40 mg by mouth 0 40 mg tablet daily. ketOROLAC (ACULAR) 0.5 % Place 1 Drop into 10 mL 3 12/0301/14/2022 ophthalmic solution the right eye 4 times daily for 34 days. Use for 3 days before cataract surgery and 1 month after ketOROLAC (ACULAR) 0.5 % Place 1 Drop into 10 mL 3 11/0312/25/2021 ophthalmic solution the right eye 4 times daily. 1 drop QID 3 days prior to surgery and 1 month after moxifloxacin (VIGAMOX) Place 1 Drop into 3 mL 3 202101/03/2022 0.5 % ophthalmic solution the right eye 4 times daily for 13 days. Use for 3 days before surgery and 10 days after moxifloxacin (VIGAMOX) Place 1 Drop into 3 mL 3 202112/25/2021 0.5 % ophthalmic solution the right eye 4 times daily. 1 drop QID 3 days prior to surgery and 10 days after moxifloxacin (VIGAMOX) Place 1 Drop into 10 mL 3 202101/14/2022 0.5 % ophthalmic solution the right eye 4 times daily. prednisoLONE (PRED FORTE) Place 1 Drop into 10 mL 3 01/21/2022 1 % ophthalmic suspension the right eye 4 times daily for 31 days. Use for one month after cataract surgery prednisoLONE (PRED FORTE) Place 1 Drop into 10 mL 3 05/202212/25/2021 1 % ophthalmic suspension the right eye 4 times daily. documented as of this encounter Discharge Disposition Disposition Code Departure Means Destination Home or Self Care Wheelchair Home documented in this encounter Progress Notes Prema Mendoza RN - 12/24/2021 1104 EDT Preop Covid DOS screening questionnaire Please document by exception (only check those that apply). Have you had any of the following symptoms recently?no Yes Chronic ? Cough Shortness of breath or difficulty breathing Fever Chills Fatigue Muscle or body aches Severe Headache New loss of taste or smell Sore throat Congestion or runny nose Rash Nausea, vomiting, or diarrhea (rare in adults. More common in children) Have you had any exposure to a COVID + person since your covid test (in the last 5 days)? no Have you tested positive in the last 90 days for COVID by PCR and or home test? no Were you covid tested?no When: Results: Vaccinated: YES / See admission vital signs documentation for admission temperature. documented in this encounter H&P Notes Rodney Sampson MD - 12/24/2021 1224 EDT The preoperative history and physical which was performed within 30 days of this procedure has been reviewed and the clinically appropriate elements of the physical examination havebeen repeated. 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 The patient'sright eye was prepped and draped in sterile fashion and an operating microscope was maneuvered into position for a temporal approach cataract surgery of the right eye. A paracentesis site was created mcdaniels perotemporally and unpreserved lidocaine 1% was administered into the anterior chamber, followed by Viscoat and Healon. A 2.75 mm keratome was used to create a corneal incision inferotemporally. A needle cystotome was used to initiate a continuous circular capsulorrhexis, which was completed using capsulorrhexis forceps. Balanced salt solution on a J cannula was used for hydrodissection, with an angled cannula also used for this purpose, with good mobility of the lens nucleus noted. A phaco tip was used to carve a groove in the anterior aspect of the lens nucleus, which was then cracked into two hemispheres. A groove was constructed in the anterior aspect of one of these nucleus hemispheres, whichwas then cracked into two quadrants, each of which was removed with phacoemulsification. A LiebermanMicroFinger was used to chop the remaining nucleus hemisphere into smaller pieces, which were removed with phacoemulsification. Irrigation aspiration was used to remove cortex. A moderately floppy iris was noted. Healon was administered into the capsular bag and the anterior chamber, and the cornealincision was enlarged slightly with a keratome. A Tecnis AZ1851 +19.5 diopter three-piece intraocular lens was injected into the capsular bag using an TonZof Unfolder injector. Miochol was administered into the anterior chamber. Viscoelastic was removed using irrigation aspiration. Stromal hydration was performed at the corneal incisions, which were found to be watertight upon testing with Weck-jeremiah sponges. A 12-hour collagen shield, which had been soaked in Vigamox, was applied to the cornea. Drops of timolol 0.5% and Vigamox were applied, in addition to a plastic shield, and the patient was transported in stable condition to the recovery room. Unless otherwise noted, there were no complications, no blood loss, no cultures obtained, no specimens removed, and no drains retained. Anesthesia Type: topical with MAC Estimated Blood Loss: None Fluids: None Urine Output: None Specimens/Cultures: None Drains/Packs: None Complications: None Disposition and Condition: Was sent to Home in Good condition. documented in this encounter Plan of Treatment Upcoming Encounters Date Type Specialty Care Team Description 07/12/2022 Post-op Visit Ophthalmology Jacky Blanchard MD [address] [phone] (Wo rk) 07/18/2022 Office Visit Urology Jose Carlos Fisher MD [address] [phone] (Wo rk) documented as of this encounter Procedures Procedure Name Priority Date/Time Associated Diagnosis Comme nts EXTRACTION, CATARACT, 12/24/2021 12:32 EDT Combined fo telly of EXTRACAPSULAR, WITH IOL age-related catar act of INSERTION right eye documented in this encounter Visit Diagnoses Not on filedocumented in this encounter Administered Medications Inactive Administered Medications - up to 3 most recent administrations Medication Order MAR Action Action Date Dose Rate Site acetaminophen (TYLENOL) solution unit do se cup 650 mg 650 mg, oral, PRN, 1 dose, Starting on M on 12/24/21 at 1302, Until Fri12/24/21 at 1534, Pain, Routine, Recovery (only) acetaminophen (TYLENOL) tablet 650 mg 650 mg, oral, EVERY 4 HOURS PRN, Startin g on Fri12/24/21 at 1302, Until Fri12/24/21 at 1534, Pain, Routine, Recovery & On Unit acetaminophen (TYLENOL) tablet 650 mg 650 mg, oral, PRN, 1 dose, Starting on M on 12/24/21 at 1302, Until Fri12/24/21 at 1534, Pain, Routine, Recovery (only) atropine 0.1 mg/mL syringe 0.5 mg 0.5 mg, intravenous, PRN, Starting on Fri12/24/21 at 1 302, Until Fri12/24/21 at 1534, Symptomatic HR < 50, Routine, Recovery (only) fccfadaqmgfxen-vqwwpswtirb-nkinyuwurjpp-phenylephrine-ketoro lac Given 12/24/2021 1 1%-1%-0.1%-2.5%-0.4% ophthalmic solution drops 1 Drop 11:16 EDT Drop 1 Drop, right eye, PREOP LINKED EYE MEDS-SEE ADMIN INSTRUCTIONS, 3 doses, First dose on Fri12/24/21 at 1130, Last dose on Fri12/24/21 at 1140, Routine, Preprocedure Given 12/24/2021 11:15 EDT 1 Drop Given 12/24/2021 11:14 EDT 1 Drop lactated ringers (LR) Continued by Anesthesia 12/24/2021 12:41 EDT 30 mL/hr infusion 30 mL/hr, intravenous, CONTINUOUS, Starting on Fri12/24/21 at 1130, Until Fri12/24/21 at 1534, Routine, Preprocedure New Bag 12/24/2021 11:10 EDT 30 mL/hr 30 mL/hr lactated ringers (LR) infusion at 75 mL/hr, intravenous, CONTINUOUS, St arting on Fri12/24/21 at 1330, Until Fri12/24/21 at 1534, Routine, Recovery (only) lidocaine (PF) 10 mg/mL (1 %) injection 2 mg 2 mg, intradermal, PRN, 4 doses, Startin g on Fri12/24/21 at 1108, Until Fri12/24/21 at 1534, peripheral intravenous catheter placement, Ro utine, Preprocedure lidocaine (PF) 3.5 % ophthalmic gel Given 12/24/2021 12:34 EDT 1 Strip right eye, PRE-OP MULTIPLE, Starting on Fri12/24/21 at 1108, Until Fri12/24/21 at 1534, Pain, Preprocedure Given 12/24/2021 11:20 EDT 1 Strip moxifloxacin (VIGAMOX) 0.5 % ophthalmic Given 12/24/2021 11:12 E DT 1 Drop solution 1 Drop 1 Drop, right eye, PREOP LINKED EYE MEDS-SEE ADMIN INSTRUCTIONS, 3 doses, First dose on Fri12/24/21 at 1130, Last dose on Fri12/24/21 at 1140, Routine, Preprocedure Given 12/24/2021 11:11 EDT 1 Drop Given 12/24/2021 11:10 EDT 1 Drop naloxone (NARCAN) injection 0.2 mg 0.2 mg, intravenous, PRN, Starting on Fri12/24/21 at 1 302, Until Fri12/24/21 at 1534, Opioid Reversal, Routine, Recovery (only) ondansetron (PF) (ZOFRAN) injection 4 mg 4 mg, intravenous, PRN, 1 dose, Starting on Fri12/24/21 at 1302, Until Fri12/24/21 at 1534, Nausea, Vomiting, Routine, Recovery (only) documented in this encounter Historical Medications This list may reflect changes made after this encounter. Medication Sig Dispensed Refills Start Date End Date pravastatin (PRAVACHOL) 40 Take 40 mg by mouth 0 mg tablet daily. added in this encounter Active and Recently Administered Medications Times are shown in EDT. Scheduled Medication Order 12/22/2021 12/23/2021 12/24/2021 dgqfnpjmxngvcm-olvocdupyhv-bpkpqajmbvba- phenylephrine-ketorolac 1%-1%-0.1%-2.5%-0.4% ophthalmic solution drops 1 Drop (COMPLETED) 1114 (Given - Provider: Prema Mendoza RN)1115 (Given - Provider: Prema Mendoza RN)1116 (Given - Provider: Prema Mendoza RN) 1 Drop, right eye, PREOP LINKED EYE MEDS -SEE ADMIN INSTRUCTIONS, 3 doses, First dose on Fri12/24/21 at 1130, Last dose on Fri12/24/21 at 1140, Routine, Preprocedure moxifloxacin (VIGAMOX) 0.5 % ophthalmic solution 1 Drop (COMPLET ED) 1110 (Given - Provider: Prema Mendoza RN)1111 (Given - Provider: Prema Mendoza RN)1112 (Given - Provider: Prema Mendoza RN) 1 Drop, right eye, PREOP LINKED EYE MEDS -SEE ADMIN INSTRUCTIONS, 3 doses, First dose on Fri12/24/21 at 1130, Last dose on Fri12/24/21 at 1140, Routine, Preprocedure Continuous Medication Order 12/22/2021 12/23/2021 12/24/2021 lactated ringers (LR) infusion 1 110 (New Bag - Provider: Prema Mendoza RN)1241 (Continued by Anesthesia - Provider: CHETAN Lares)1311 (Completed - Provider: CHETAN Lares) at 30 mL/hr, 30 mL/hr, intravenous, CONT INUOUS, Starting on Fri12/24/21 at 1130, Until Fri12/24/21 at 1534, Routine, Preprocedure lactated ringers (LR) infusion 1 330 (Canceled Entry - Provider: Batch Job User Admin - Comment: Automatically canceled at discontinue of medication order) at 75 mL/hr, intravenous, CONTINUOUS, St arting on Fri12/24/21 at 1330, Until Fri12/24/21 at 1534, Routine, Recovery (only) PRN Medication Order 12/22/2021 12/23/2021 12/24/2021 acetaminophen (TYLENOL) solution unit dose cup 650 mg(Linked Destiny up 1) 650 mg, oral, PRN, 1 dose, Starting on M on 12/24/21 at 1302, Until Fri12/24/21 at 1534, Pain, Routine, Recovery (only) acetaminophen (TYLENOL) tablet 650 mg 650 mg, oral, EVERY 4 HOURS PRN, Startin g on Fri12/24/21 at 1302, Until Fri12/24/21 at 1534, Pain, Routine, Recovery & On Unit acetaminophen (TYLENOL) tablet 650 mg(Linked Group 1) 650 mg, oral, PRN, 1 dose, Starting on M on 12/24/21 at 1302, Until Fri12/24/21 at 1534, Pain, Routine, Recovery (only) acetylcholine chloride (MIOCHOL-E) 1 % (10 mg/mL) injection (CAN CELED) 1300 (Given - Provider: Rodney Sampson MD - Comment: [email or web address]) PRN, Starting on Fri12/24/21 at 1300, Un til Fri12/24/21 at 1308, Routine, Intraprocedure atropine 0.1 mg/mL syringe 0.5 mg 0.5 mg, intravenous, PRN, Starting on Mo n 12/24/21 at 1302, Until Fri12/24/21 at 1534, Symptomatic HR < 50, Routine, Recovery (only) balanced salt solution inrrigation solut ion (BSS PLUS) 500 mL, EPINEPHrine HCl (PF) (ADRENALIN) 0.5 mL irrigation (CANCELED) 1252 (Given - Provider: Rodney Sampson MD) PRN, Starting on Fri12/24/21 at 1252, Un til Fri12/24/21 at 1308, Routine, Intraprocedure balanced salts (BSS) ophthalmic solution (CANCELED) 1252 (Given - Provider: Rodney Sampson MD) PRN, Starting on Fri12/24/21 at 1252, Un til Fri12/24/21 at 1308, Routine, Intraprocedure chondroitin-sodium hyaluronate (VISCOAT) ophthalmic solution (CA NCELED) 1253 (Given - Provider: Rodney Sampson MD) PRN, Starting on Fri12/24/21 at 1253, Un til Fri12/24/21 at 1308, Routine, Intraprocedure lidocaine (PF) 10 mg/mL (1 %) injection 2 mg 2 mg, intradermal, PRN, 4 doses, Startin g on Fri12/24/21 at 1108, Until Fri12/24/21 at 1534, peripheral intravenous catheter placement, Routine, Preprocedure lidocaine (PF) 10 mg/mL (1 %) injection (CANCELED) 1253 (Given - Provider: Rodney Sampson MD) PRN, Starting on Fri12/24/21 at 1253, Un til Fri12/24/21 at 1308, Routine, Intraprocedure lidocaine (PF) 3.5 % ophthalmic gel 1120 (Given - Provider: Prema Mendoza, STUART)1234 (Given - Provider: Prema Mendoza RN) right eye, PRE-OP MULTIPLE, Starting on Fri12/24/21 at 1108, Until Fri12/24/21 at 1534, Pain, Preprocedure moxifloxacin (VIGAMOX) 0.5 % ophthalmic solution (CANCELED) 1253 (Given - Provider: Rodney Sampson MD) PRN, Starting on Fri12/24/21 at 1253, Un til Fri12/24/21 at 1308, Routine, Intraprocedure naloxone (NARCAN) injection 0.2 mg 0.2 mg, intravenous, PRN, Starting on Mo n 12/24/21 at 1302, Until 12/24/21 at 1534, Opioid Reversal, Routine, Recovery (only) ondansetron (PF) (ZOFRAN) injection 4 mg 4 mg, intravenous, PRN, 1 dose, Starting on 12/24/21 at 1302, Until 12/24/21 at 1534, Nausea, Vomiting, Routine, Recovery (only) sodium hyaluronate (HEALON) ophthalmic injection (CANCELED) 1253 (Given - Provider: Rodney Sampson MD) PRN, Starting on 12/24/21 at 1253, Un til 12/24/21 at 1308, Routine, Intraprocedure timolol (TIMOPTIC) 0.5 % ophthalmic solution (CANCELED) 1253 (Given - Provider: Rodney Sampson MD) PRN, Starting on 12/24/21 at 1253, Un til 12/24/21 at 1308, Routine, Intraprocedure Linked Groups Order Group 1: acetaminophen (TYLENOL) solution unit dose cup 650 mgJump to med 650 mg, oral, PRN, 1 dose, Starting on M on 12/24/21 at 1302, Until 12/24/21 at 1534, Pain, Routine, Recovery (only) Or acetaminophen (TYLENOL) tablet 650 mgJump to med 650 mg, oral, PRN, 1 dose, Starting on M on 12/24/21 at 1302, Until Fri12/24/21 at 1534, Pain, Routine, Recovery (only) documented in this encounter Orders Medications Ordered That Might Not Have Count Last Ord ered Date First Ordered Date Been Administered acetaminophen (TYLENOL) solution unit dose 1 12/24 cup 650 mg acetaminophen (TYLENOL) tablet 650 mg 2 12/24/2021 acetylcholine chloride (MIOCHOL-E) 1 % (10 1 12/24 mg/mL) injection atropine 0.1 mg/mL syringe 0.5 mg 1 12/24/2021 balanced salt solution inrrigation 1 12/24/2021 solution (BSS PLUS) 500 mL, EPINEPHrine HCl (PF) (ADRENALIN) 0.5 mL irrigation balanced salts (BSS) ophthalmic solution 1 chondroitin-sodium hyaluronate (VISCOAT) 1 ophthalmic solution lactated ringers (LR) infusion 1 12/24/2021 lidocaine (PF) 10 mg/mL (1 %) injection 1 12/25/19 lidocaine (PF) 10 mg/mL (1 %) injection 2 1 2021 mg moxifloxacin (VIGAMOX) 0.5 % ophthalmic 1 12/25/19 solution naloxone (NARCAN) injection 0.2 mg 1 12/24/2021 ondansetron (PF) (ZOFRAN) injection 4 mg 1 sodium hyaluronate (HEALON) ophthalmic 1 2 injection timolol (TIMOPTIC) 0.5 % ophthalmic 1 12/24/2021 solution Discharge Count Last Ordered Date First Ordered Date DISCHARGE PATIENT 1 12/24/2021 documented in this encounter Care Teams Pulp Operator Relationship Specialty Start Date End Date Sweetie Gonzales PCP - General Family Medicine - Primary 12/18/21 04/09/[address] [place] [address] [place] [phone] documented as of this encounter
--- OUTSIDE RECORDS SUMMARY | 2022-07-05 02:47 | XMS_ITS | Encounter Summary ---
:1950 Author Organization [facility] Address [address] [place] [address] Care Team Providers Name Role Phone Yosi Graham [facility] Primary Care Provider Reason for Visit Reason Comments Pre-op Exam Pre op for detatched retina surgery today; Dr. Shipman. 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 Procedures IA RPR RETINAL DTCHMNT W/VITRECTOMY ANY METH Vitrectomy, Possible Lensectomy, Laser, Oil, RIGHT EYE Referral ID Status Reason Start Date Expiration Date Visits Requ ested Visits Authorized [id number] 08/03/2022 1 1 Encounter Details Date Type Department Care Team Description 10/10/2021 Hospital Encounter [facility] Ivet Santana MD Pre-op exam (Primary Urgent Care - [address] Dx) [address] [phone] Social History Tobacco Use Types Packs/Day Years Used Date Smoking Tobacco: Never Smokeless Tobacco: Never Alcohol Use Standard Drinks/Week Comments Yes 3 (1 standard drink = 0.6 oz pure alcoho l) Sex Assigned at Date Recorded Not on file documented as of this encounter Last Filed Vital Signs Vital Sign Reading Time Taken Comments Blood Pressure 151/87 10/10/2021 1120 EST Pulse 60 10/10/2021 1120 EST Temperature 36.2 ??C (97.2 ??F) 10/10/2021 1120 EST Respiratory Rate 16 10/10/2021 1120 EST Oxygen Saturation 99% 10/10/2021 1120 EST Inhaled Oxygen Concentration - - Weight 83 kg (182 lb 15.7 oz) 10/10/2021 1120 EST Height 167.6 cm (5' 6) 10/10/2021 1120 EST Body Mass Index 29.53 10/10/2021 1120 EST documented in this encounter Functional Status Functional [...] documented as of this encounter Discharge Instructions AttachmentsThe following attachments cannot be sent through Care Everywhere. Surgery Prep: General Info (British)documented in this encounter Medications at Time of Discharge Medication Sig Dispensed Refills Start Date End Date aspirin 81 mg EC tablet Take 81 mg by mouth 0 daily. metoprolol (LOPRESSOR) 25 Take 25 mg by mouth 0 mg tablet daily. lisinopril (PRINIVIL, Take 10 mg by mouth 0 12/18/2021 ZESTRIL) 10 mg tablet daily. documented as of this encounter Discharge Disposition Disposition Code Departure Means Destination Home or Self Alf documented in this encounter ED Notes Monica Santana MD - 10/10/2021 1140 EST Preoperative H&P Patient ID: Po Matthews is an 71 y.o. male. :1950 Date of Service: 10/10/2021 Chief Complaint: Chief Complaint Patient presents with ??? Pre-op Exam Pre op for detatched retina surgery today; Dr. Shipman. Planned Procedure: right detached retina Surgeon: Lo Planned Procedure Date: October 10, 2021 Problem List Available or Initiated: yes Subjective: HISTORY OF PRESENT ILLNESS: Detached retina Cardiovascular or pulmonary risk factors: aortic valve replacement bovine 2014 Prior h/o of anesthetic complications: no Prior h/o bleeding problems: no Prior h/o DVT/PE: no Prior h/o infections (VRE, MRSA): no Reaction to tape or latex: no Family history of anesthetic complications, bleeding problems or DVT/PE: no. Patient Active Problem List Diagnosis ??? Malignant neoplasm of prostate (HCC-CMS) (HCC) ??? 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 PVD (posterior vitreous detachment), right eye ??? Vitreous syneresis of left eye ??? Vitreous hemorrhage of right eye (HCC-CMS) (HCC) ??? Nuclear senile cataract of both eyes Past Medical History: Diagnosis Date ??? Cancer (HCC-CMS) (HCC) ??? Elevated prostate specific antigen (PSA) ??? Family history of malignant neoplasm of prostate ??? Hypertension ??? Other states following surgery of eye and adnexa Past Surgical History: Procedure Laterality Date ??? CARDIAC VALVE REPLACEMENT 12/01/2014 aortic valve replacement ??? RETINAL DETACHMENT SURGERY Social History Tobacco Use ??? Smoking status: Never Smoker ??? Smokeless tobacco: Never Used Substance Use Topics ??? Alcohol use: Yes Alcohol/week: 3.0 - 4.0 standard drinks Types: 3 - 4 Cans of beer per week ??? Drug use: No Family History Problem Relation Age of Onset ??? Prostate Cancer Brother ??? Prostate Cancer Brother ??? Macular Degeneration Mother ??? Glaucoma Neg Hx ??? Retinal Detachment Neg Hx No Known Allergies No current facility-administered medications for this encounter. Current Outpatient Medications Medication Sig Dispense Refill ??? aspirin (ASPIRIN LOW DOSE) 81 mg EC tablet Take 81 mg by mouth daily. ??? lisinopril (PRINIVIL, ZESTRIL) 10 mg tablet Take 10 mg by mouth daily. ??? metoprolol (LOPRESSOR) 25 mg tablet Take 25 mg by mouth daily. ??? ofloxacin (OCUFLOX) 0.3 % ophthalmic solution Place 1 Drop into the right eye 4 times daily. (Patient not taking: Reported on 09/20/2021) 5 mL 1 ??? pravastatin (PRAVACHOL) 10 mg tablet Take 10 mg by mouth daily. (Patient not taking: Reported on07/20/2021) ??? prednisoLONE (PRED FORTE) 1 % ophthalmic suspension Place 1 Drop into the right eye 4 times daily. (Patient not taking: Reported on 10/10/2021) 10 mL 3 ??? sildenafil citrate (VIAGRA) 100 mg tablet Take 1 Tab by mouth as needed for Erectile Dysfunction. (Patient not taking: Reported on 07/20/2021) 30 Tab 11 Review of Systems Constitutional: Negative. HENT: Negative. Eyes: Positive for blurred vision. Negative for double vision, photophobia, pain, discharge and redness. Respiratory: Negative. Cardiovascular: Negative. Gastrointestinal: Negative. Genitourinary: Negative. Musculoskeletal: Negative. Skin: Negative. Neurological: Negative. Endo/Heme/Allergies: Negative. Psychiatric/Behavioral: Negative. Objective: BP (!) 151/87 Pulse 60 Temp 97.2 ??F (36.2 ??C) (Temporal) Resp 16 Ht 167.6 cm (66) Wt 83kg (182 lb 15.7 oz) SpO2 99% BMI 29.53 kg/m?? Body mass index is 29.53 kg/m??. Physical Exam Vitals and nursing note reviewed. Constitutional: General: He is not in acute distress. Appearance: He is well-developed and well-nourished. He is not diaphoretic. HENT: Mouth/Throat: Mouth: Mucous membranes are moist. Dentition: Normal. Pharynx: Oropharynx is clear. Normal. Tonsils: No tonsillar exudate. Eyes: Extraocular Movements: EOM normal. Conjunctiva/sclera: Conjunctivae normal. Neck: Thyroid: No thyromegaly. Cardiovascular: Rate and Rhythm: Normal rate and regular rhythm. Heart sounds: Murmur heard. No friction rub. No gallop. Pulmonary: Effort: Pulmonary effort is normal. Breath sounds: Normal breath sounds. Abdominal: General: Bowel sounds are normal. Palpations: Abdomen is soft. Tenderness: There is no abdominal tenderness. Musculoskeletal: General: No tenderness or edema. Cervical back: Normal range of motion and neck supple. Lymphadenopathy: Cervical: No cervical adenopathy. Skin: General: Skin is warm and dry. Neurological: Mental Status: He is alert and oriented to person, place, and time. Cranial Nerves: No cranial nerve deficit. Psychiatric: Mood and Affect: Mood and affect normal. Behavior: Behavior normal. Thought Content: Thought content normal. Judgment: Judgment normal. EKG: N/A Assessment: No diagnosis found. No contraindications to planned surgery Plan: Patient requires endocarditis prophylaxis (see guideline summary below): no. Perioperative beta-maulik recommendation (see guideline summary below): no - betablocker not indicated. Proceed with surgery as planned. Monica Santana MD 10/10/2021 11:40 If is billing provider, the [place] or [place] must attest: I was directly supervised by N/A who was present in the office suite and was immediately available. SUMMARY OF GUIDELINES: Endocarditis prophylaxis indications: Antibiotics are indicated for prosthetic heart materials (not routine MVP), uncorrected congenital heart anomalies, history of endocarditis; and only for surgeriesof mouth, respiratory tract, or infected tissue. Options for a one-time oral dose of antibiotic taken 30 - 60 minutes prior to the procedure include amoxicillin 2 grams, clindamycin 600 mg, or azithromycin 500 mg. Guideline Title: Prevention of Infective Endocarditis Guidelines From the [place] [employer]: A Guideline From the [place] [employer] Rheumatic Fever, Endocarditis, and Kawasaki DiseaseCommittee, [place] on Cardiovascular Disease in the [place], and the [place] on Clinical Cardiology, Co uncil on Cardiovascular Surgery and Anesthesia, and the Quality of Care and Outcomes Research Interdisciplinary Working Group. Please see Circulation. 2007;116:0163-2996 for the detailed indications. Mary Anne-operative betablocker (BB) indications: For patients already on BB for angina, arrhythmia, or HTN continue the BB (Class I). For patients not on BB, consider adding 1 week prior to surgery for vascular surgery in patients with CAD or multiple risk factors; or CHD or multiple risk factors undergoing intermediate - to high-risk procedures (Class IIa). Consider continuing the BB 2-4 weeks post-operatively. Otherwise, starting a perioperative betablocker may be harmful. Guideline Title: 2009 ACCF/AHA focused update on perioperative beta blockade incorporated into the ACC/AHA 2007 guidelines on perioperative cardiovascular evaluation and care for noncardiac surgery. A report of the [place] [employer] Foundation/[place] [employer] Task Force on Practice Guidelines. Please see J Am Surekha Cardiol. 2009; Jun 27;54(22):o65-o422 for the detailed indications. Lauren Tompkins RN - 10/10/2021 5627 EST Blurry vision in Rt. Eye d/t retina detachment. Emergency surgery scheduled today. Mary Muir, STUART - 10/10/2021 1125 EST Denies covid symptoms. Has had vaccination and booster. documented in this encounter Plan of Treatment Upcoming Encounters Date Type Specialty Care Team Description 07/12/2022 Post-op Visit Ophthalmology Jacky Blanchard MD 111 [facility] [address] [place], [place] [phone] (Wo rk) 07/18/2022 Office Visit Urology Jose Carlos Fisher MD [address] [phone] (Wo rk) documented as of this encounter Visit Diagnoses Diagnosis Pre-op exam - Primary Preoperative examination, unspecified documented in this encounter Care Teams Nut Sorter Relationship Specialty Start Date End Date Yosi Graham RPA PCP - General 07/05/16 12/17/[address] [place] [id number] documented as of this encounter
--- OUTSIDE RECORDS SUMMARY | 2022-07-05 02:47 | XMS_ITS | Encounter Summary ---
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 Procedures ID RPR RETINAL DTCHMNT W/VITRECTOMY ANY METH Vitrectomy, Possible Lensectomy, Laser, Oil, RIGHT EYE Referral ID Status Reason Start Date Expiration Date Visits Requ ested Visits Authorized [id number] 08/03/2022 1 1 Encounter Details Date Type Department Care Team Description 10/10/2021 Office Visit [facility] Jacky Blanchard MD Ophthalmology - [address] [place], [place] [id number] [place] [phone] (Wo rk) Social History Tobacco Use Types [...] encounter Progress Notes Jacky Blanchard MD - 10/10/2021 1015 EST Chief Complaint Patient presents with ??? Eye Problem Comments Per Dr. Sampson ? Retinal re-detachment right eye. HPI lost vision right eye 10/07/2021 Base Eye Exam Visual Acuity (Snellen - Linear) Right Left Dist cc 20/250 20/25 Tonometry (Applanation, 10:24) Right Left Pressure 15 19 Pupils APD Right None Left None Neuro/Psych Oriented x3: Yes Mood/Affect: Normal Dilation Both eyes: Tropicamide 1%, Phenylephrine 2.5% @ 10:24 Slit Lamp and Fundus Exam Slit Lamp Exam Right Left Lids/Lashes Normal Normal Conjunctiva/Sclera White and quiet White and quiet Cornea Clear Clear Anterior Chamber Deep and quiet Deep and quiet Iris Dilated dilated Lens 2+ Posterior subcapsular cataract, 1+ Nuclear sclerosis 1+ Cortical cataract Vitreous clear s/p PPV clear Fundus Exam Right Left Disc Healthy Rim Healthy Rim C/D Ratio 0.3 Macula detached Normal Vessels Normal Normal Periphery Retina detached posterior to scleral buckle - break not identified. PVR @ 6 attached no predisposing lesion Please refer to large retinal drawing. IMAGING: DIAGNOSES: 1. 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 Mixed type age-related cataract, both eyes Assessment Recurrent retinal detachment s/p12/??SB,PPV,EL,SF6, STK for VH and RD/RT Offer PPV, +/- PPL, EL, SO under local anesthesia right eye today Discussed that vision is unlikely to return to 20/20 given macula off status Discussed that if PPL is required for view, an IOL will be implanted later, when SO is removed. Discussed risk of re-detachment Discussed risks of surgery Patient agrees. Surgery will be scheduled tonight. Left eye Retina attached, no predisposing lesions to retinal detachment. No PVD Monitor I have reviewed the past medical, family, [...] Post-op Visit Ophthalmology Jacky Blanchard MD [address] [phone] (Wo rk) 07/18/2022 Office Visit Urology Jose Carlos Fisher MD [address] [phone] (Wo rk) Scheduled Orders Name Type Priority Associated Diagnoses Order S chedule COVID-19 TESTING Microbiology Routine Retinal detachment of Ex pected: 10/17/2021 right eye with multiple (Jaida roximate), retinal tears Expires: 10/10 documented as of this encounter Visit Diagnoses Diagnosis Retinal detachment of right eye with mul tiple retinal tears - Primary Mixed type age-related cataract, both ey es documented in this encounter Orders Case Request Count Last Ordered Date First Ordered Date CASE REQUEST OPERATING ROOM 1 10/10/2021 documented in this encounter Eye Exam Visual Acuity (Snellen - Linear) Right eye Left eye Dist cc 20/250 20/25 Tonometry (Applanation, 10:24) Right eye Left eye Pressure 15 19 Pupils APD Right eye None Left eye None Neuro/Psych Oriented x3: Yes Mood/Affect: Normal Dilation Both eyes: Tropicamide 1%, Phenylephrine 2.5% @ 10:24 Slit Lamp Exam Right eye Left eye Lids/Lashes Normal Normal Conjunctiva/Sclera White and quiet White and quiet Cornea Clear Clear Anterior Chamber Deep and quiet Deep and quiet Iris Dilated dilated Lens 2+ Posterior subcapsular cataract, 1+ Nu clear 1+ Cortical cataract sclerosis Vitreous clear s/p PPV clear Fundus Exam Right eye Left eye Disc Healthy Rim Healthy Rim C/D Ratio 0.3 Macula detached Normal Vessels Normal Normal Periphery Retina detached posterior to scleral att ached no predisposing lesion buckle - break not identified. PVR @ 6 Care Teams Liquid Natural Gas Plant Operator Relationship Specialty Start Date End Date Yosi Graham, EDER PCP - General 07/05/16 12/17/[address] [place] [phone] documented as of this encounter
--- OUTSIDE RECORDS SUMMARY | 2022-07-05 02:47 | XMS_ITS | Encounter Summary ---
:1950 Author Organization [facility] Address [address] [place] [address] Care Team Providers Name Role Phone JanetSweetie bender Primary Care Provider Reason for Visit Reason Onset Date Comments COVID-19 01/06/2022 scheduling Encounter Details Date Type Department Care Team Description 01/06/2022 Telephone [facility] - Eloy Blanchard MD COVID-19 (scheduling) [facility] [address] [phone] Jennifer Valentine [address] [place] [phone] (Wo rk) Social History Tobacco Use [...] this encounter Miscellaneous Notes Telephone Encounter - Connie Monk - 01/07/2022 1025 EDT Patient advised he would like covid testing done at [facility]. Origination Specialist faxed the order and asked that they schedule the patient for testing on 01/18/22. Also made patient aware of testing date. Origination Specialist will also remove patient from the work queue. Telephone Encounter - Katlin Solis - 01/06/2022 1525 EDT Called patient to schedule COVID-19 testing. Left message requesting a call back at # [phone]. Patient will need to be tested on 01/18, 3 days prior to procedure on 02/20. This is our 1st attempt atcontacting the patient. documented in this encounter Plan of Treatment Upcoming Encounters Date Type Specialty Care Team Description 07/12/2022 Post-op Visit Ophthalmology Jacky Blanchard MD [address] [phone] (Wo rk) 07/18/2022 Office Visit Urology Jose Carlos Fisher MD [address] [phone] (Wo rk) documented as of this encounter Visit Diagnoses Not on filedocumented in this encounter Care Teams Wardrobe Coordinator Relationship Specialty Start Date End Date Sweetie Gonzales PCP - General Family Medicine - Primary 12/18/21 04/09/22 [address] [place] [phone] documented as of this encounter
--- OUTSIDE RECORDS SUMMARY | 2022-07-05 02:47 | XMS_ITS | Encounter Summary ---
:1950 Author Organization [facility] Address [address] [place] [address] Care Team Providers Name Role Phone Sweetie Gonzales Primary Care Provider Encounter Details Date Type Department Care Team Description 12/18/2021 Hospital Encounter [facility] Pre-Surgical Testing [address] [place], [place] [phone] Social History Tobacco Use Types Packs/Day Years Used Date Smoking Tobacco: Never Smokeless Tobacco: Never Alcohol Use Standard Drinks/Week Comments Yes 3 (1 standard drink = 0.6 oz pure alcoho l) Sex Assigned at Date Recorded Not on file documented as of this encounter Last Filed Vital Signs Vital Sign Reading Time Taken Comments Blood Pressure - - Pulse - - Temperature - - Respiratory Rate - - Oxygen Saturation - - Inhaled Oxygen Concentration - - Weight 95.3 kg (210 lb) 12/18/2021 1013 EDT Height 167.6 cm (5' 6) 12/18/2021 1013 EDT Body Mass Index 33.89 12/18/2021 1013 EDT documented in this encounter Functional Status [...] Place 1 Drop into 10 mL 3 04/08/202112/25/2021 ophthalmic solution the right eye 4 times daily. 1 drop QID 3 days prior to surgery and 1 month after moxifloxacin (VIGAMOX) Place 1 Drop into 3 mL 3 2 12/25/2021 0.5 % ophthalmic solution the right eye 4 times daily. 1 drop QID 3 days prior to surgery and 10 days after moxifloxacin (VIGAMOX) Place 1 Drop into 10 mL 3 2 01/14/2022 0.5 % ophthalmic solution the right eye 4 times daily. prednisoLONE (PRED FORTE) Place 1 Drop into 10 mL 3 2 12/25/2021 1 % ophthalmic suspension the right eye 4 times daily. documented as of this encounter Discharge Disposition Disposition Code Departure Means Destination Home or Self Care documented in this encounter Progress Notes Bobby Quintero, RN - 12/18/2021 0950 EDT COVID 19 Screening Perioperative at time of PAT Please document by exception (only check those that apply). Have you had any of the following symptoms recently? No Yes Chronic ? Cough Shortness of breath or difficulty breathing Fever Chills Fatigue Muscle or body aches Severe Headache New loss of taste or smell Sore throat Congestion or runny nose Rash Nausea, vomiting, or diarrhea (rare in adults. More common in children) Please elaborate if yes: If a chronic symptom is reported use your judgement if an anesthesia review is needed. Have you been in close contact with someone who has been diagnosed with Covid 19 (within past 2 weeks)? No If yes, and is a member of your household, what was the date of their onset of symptoms/positive test? If above date is within 15 days of dos, place for anesthesia review. Have you tested positive in the last 90 days for COVID by PCR and or home test? No If yes: Home Test Date: PCR Date: PCR Test Location: Covid test not needed- Cataract surgery with MAC anes. Vaccination Status: ___ Pt states fully vaccinated, ___ Verified in chart ___ Pt states unvaccinated -Do not instruct patient regarding COVID testing, let [facility] coordinate this -Communicate status on yellow form for DOS REMIND PATIENT/parents of pediatric patients: Patients with a pending COVID-19 test are expected to remain masked and socially distanced at all times while at work or school, and refrain from going inside restaurants, bars, or other public areas where people are likely to be unmasked, or crowded public places. If patient develops any of these symptoms between now and their surgery date instruct them to call us back at [phone] to report symptoms Visitor Policy: Surgical & Procedural -Adult: 2 support people -Pediatrics: 2 support people - Inpatients are now permitted 2 support people at a time. One person is permitted to remain overnight (must be masked). - Pediatric Inpatients may 2 support people at a time. - Inpatient Psychiatry patients may have 2 (vaccinated) support people at a time - Outpatient visits: 2 support people for adults and pedi. (Exception: Cancer Center and [facility] 4 Infusion- 1 support person) As a reminder, all support people are will be required to wear a mask that covers their nose and mouth for the entire time they are in the building. Anyone who cannot or will not wear a mask will be asked to leave. documented in this encounter OR Notes Preprocedure Instructions - Bobby Quintero RN - 12/18/2021 0950 EDT Po Matthews has been instructed as follows regarding medication administration for the day of the scheduled procedure. Date of Surgery: 12/24/21 Instructions for Taking Medications Day of Surgery Medication Sig Last Dose Hold DOS Take DOS aspirin (ASPIRIN LOW DOSE) 81 mg EC tablet Take 81 mg by mouth daily. x ketOROLAC (ACULAR) 0.5 % ophthalmic solution Place 1 Drop into the right eye 4 times daily. 1 drop QID 3 days prior to surgery and 1 month after Patient not taking: Reported on 12/14/2021 x lisinopriL (PRINIVIL) 30 mg tablet Take 30 mg by mouth daily. X (cataract surgery) metoprolol (LOPRESSOR) 25 mg tablet Take 25 mg by mouth daily. x moxifloxacin (VIGAMOX) 0.5 % ophthalmic solution Place 1 Drop into the right eye 4 times daily. 1 drop QID 3 days prior to surgery and 10 days after Patient not taking: Reported on 12/14/2021 N/A-Duplicate order from Dr. Blanchard moxifloxacin (VIGAMOX) 0.5 % ophthalmic solution Place 1 Drop into the right eye 4 times daily. Patient not taking: Reported on 11/08/2021 x prednisoLONE (PRED FORTE) 1 % ophthalmic suspension Place 1 Drop into the right eye 4 times daily. x BOBBY QUINTERO, RN documented in this encounter Plan of Treatment Upcoming Encounters Date Type Specialty Care Team Description 07/12/2022 Post-op Visit Ophthalmology Jacky Blanchard MD [address] [phone] (Wo rk) 07/18/2022 Office Visit Urology Jose Carlos Fisher MD [address] [phone] (Wo rk) documented as of this encounter Visit Diagnoses Not on filedocumented in this encounter Discontinued Medications Medication Sig Discontinue Reason Start Date End Date lisinopril (PRINIVIL, Take 10 mg by mouth Dose adjustment 12/18/2021 ZESTRIL) 10 mg tablet daily. documented as of this encounter Historical Medications This list may reflect changes made after this encounter. Medication Sig Dispensed Refills Start Date End Date lisinopriL (PRINIVIL) 30 Take 30 mg by mouth 0 mg tablet daily. added in this encounter Care Teams Parachute Crown Sewer Relationship Specialty Start Date End Date Sweetie Gonzales PCP - General Family Medicine - Primary 12/18/21 04/09/[address] [place] [address] [place] [phone] documented as of this encounter
--- OUTSIDE RECORDS SUMMARY | 2022-07-05 02:47 | XMS_ITS | Encounter Summary ---
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 Procedures NE RPR RETINAL DTCHMNT W/VITRECTOMY ANY METH REPAIR, RETINAL DETACHMENT, WITH VITRECTOMY Referral ID Status Reason Start Date Expiration Date Visits Requ ested Visits Authorized [id number] 1 1 Encounter Details Date Type Department Care Team Description 07/11/2021 Hospital Encounter [facility] OR Jacky Blanchard MD [address] [place] [address] [address] [phone] [facility] [address] [place] [address] (Wo rk) Social History Tobacco Use Types Packs/Day Years Used Date Smoking Tobacco: Never Smokeless Tobacco: Never Alcohol Use Standard Drinks/Week Comments Yes 1 (1 standard drink = 0.6 oz pure alcoho l) Sex Assigned at Date Recorded Not on file documented as of this encounter Last Filed Vital Signs Vital Sign Reading Time Taken Comments Blood Pressure 126/87 07/11/2021 1800 EST Pulse - - Temperature 36.6 ??C (97.9 ??F) 07/11/2021 1725 EST Respiratory Rate 23 07/11/2021 1800 EST Oxygen Saturation 98% 07/11/2021 1800 EST Inhaled Oxygen Concentration - - Weight 102 kg (224 lb 13.9 oz) 07/11/2021 1218 EST Height 167.6 cm (5' 6) 07/11/2021 1218 EST Body Mass Index 36.29 07/11/2021 1218 EST documented in this encounter Functional Status [...] Discharge Instructions Discharge Instr - AVS First PageJacky Blanchard MD - 07/11/2021 17:14 EST Position face down or left ear down 40 minutes out of every waking hour for 5 days. Sleep left ear down or face down for 7 days. Avoid lifting weights over 10 pds, bending below the waist or straining for 7 days. Keep patch on the eye until tomorrow's follow-up appointment. documented in this encounter Medications at Time of Discharge Medication Sig Dispensed Refills Start Date End Date aspirin 81 mg EC tablet Take 81 mg by mouth 0 daily. metoprolol (LOPRESSOR) Take 25 mg by mouth 0 25 mg tablet daily. lisinopril (PRINIVIL, Take 10 mg by mouth 0 12/18/2021 ZESTRIL) 10 mg tablet daily. pravastatin (PRAVACHOL) Take 10 mg by mouth 0 10/10/2021 10 mg tablet daily. sildenafil citrate Take 1 Tab by mouth 30 Tab 11 06/23/20 18 10/10/2021 (VIAGRA) 100 mg tablet as needed for Erectile Dysfunction. documented as of this encounter Discharge Disposition Disposition Code Departure Means Destination Home or Self Care Wheelchair Home documented in this encounter H&P Notes Jacky Blanchard MD - 07/11/2021 1421 EST In reviewing the chart, I see Po Matthews had a Pre-surgical History & Physical completed within the last 30 days. The following is a copy of that H&P note from the encounter associated with the physical. The note has been copied for review and update purposes within the scheduled perioperative encounter. Jacky Blanchard MD 07/11/2021 14:21 documented in this encounter Procedure Notes Jacky Blanchard MD - 07/11/2021 1704 ESTProcedure(s): NE RPR RETINAL DTCHMNT W/VITRECTOMY ANY METH Pre-Procedure Diagnose(s): Retinal detachment with multiple retinal tears, right; Vitreous hemorrhage of right eye (HCC-CMS) (HCC) Surgery date: 07/11/2021 Pre-operative diagnosis: Retinal detachment with multiple tears and vitreal heme right eye. S/p 03/21/2021 laser retinopexy in clinic Post operative diagnosis: same Surgery: Scleral buckle, pars plana vitrectomy, air-fluid exchange, endolaser, 20% SF6 gas, 20 mg sub-Tenon's triamcinolone, right eye Surgeon: Jacky Blanchard MD Anesthesia: General Findings: New infero-temporal retinal tear at 7:00 with onset of retinal detachment. Temporal retinal detachment with three tears and bridging vessels, well contained by laser reitnopexy barricade anterior to equator, from 7:30 to 12:00. Vitreal heme secondary to vessels bridging old tears. Technique: Patient was identified in the pre-operative [...] operative site, and the procedure being performed. General anesthesia via endotracheal intubation was induced without difficulty. The patient was positioned under the microscope and the eye was prepped with povidone iodine and draped in the usual sterile fashion for ophthalmic surgery. Appropriate exposure was achieved with the use of a lid speculum. A 360 degree peritomy was performed using Zach scissors and Tenon's capsule bluntly dissected from the sclera using Porfirio's scissors in all quadrant. Each of the recti muscle was placed on a 2-0 Silk sling and from its Tenon's adhesions using blunt dissection. Each quadrant was inspected using Schepens retractors, ensuring no scleral thinning or other lesions were present. In each of the four quadrants, scleral belt loops were created perpendicular to the limbus, between the recti muscles, starting 5 mm posterior to the muscle insertion ring, using a #69 crescent-shaped blade and a Castroviejo dissector. A #42 silicone band was passed behind the recti muscles and inside each belt loop and then tied in the superonasal quadrant with a #70 sleeve. The band was tightened in order to obtain scleral indentation. The superonasal scleral belt loop ruptured at this point and the band was fixated to the sclera with a mattress type of 5-0 nylon suture. Three trocars were inserted 4.0 mm from the limbus, one in the inferotemporal quadrant, one in the superotemporal quadrant, and one in the superonasal quadrant. The infusion port was placed through theinferotemporal trocar and visualized in the vitreous cavity prior to starting the infusion. There were no problems with the cannula placements. Core vitrectomy was then performed with light pipe and vitrector. Vitreous was then shaved peripherally. The posterior hyaloid was detached from the posterior pole. Careful examination of the retina through the Resight wide angle lens, using scleral indentation, revealed a temporal retinal detachment with three tears and bridging vessels, well contained by laser reitnopexy barricade anterior to equator, from 7:30 to 12:00. The vitreal heme was likely secondary to one of the bridging vessels. A new infero-temporal retinal tear was found at 7:00 with onset of localized fluid and retinal detachment. All tears were marked with endodiathermy and the bridging vessels cauterized. Fluid-air exchange was performed with a soft-tip cannula. All lesions appeared well supported by the buckle indentation. Endolaser was applied around the tears and also 360 degrees posterior to the ora triny. The excess of silicone band was trimmed next to the sleeve. Air was exchanged for 20% SF6 gas. All 3 cannulas were removed, and each of the sclerotomies was closed using 7-0 vicryl sutures. Intraocular pressure was ensured to be physiologic. The four silk suture slings were removed from the recti muscles. The conjunctival peritomy was closed using 7-0 vicryl sutures. 20mg = 0.5 ml Kenalog (triamcinolone was injected in the temporal sub-Tenon's space. Local post-operative anesthesia was achieved with a sub-tenon's block using 5 cc of lidocaine 2% andbupivacaine 0.75% 50/50 mix. Ancef solution was injected subconjunctivally. The lid speculum was removed, Maxitrol ointment was placed onto the eye. A patch and shield were placed for protection. Anesthesia was reversed, and the patient was brought to the postanesthesia care unit in stable condition. The patient tolerated the procedure well without complication. Estimated Blood Loss Minimal. Total IV Fluids Per anesthesia documentation. Specimen(s) None. Complications None. documented in this encounter Nursing Notes Lisy Mathias RN - 07/11/2021 1238 EST Preop Covid DOS screening questionnaire Please document [...] (rare in adults. More common in children) Were you covid tested? No When: Results: Vaccinated: YES See admission vital signs documentation for admission temperature. documented in this encounter Plan of Treatment Upcoming Encounters Date Type Specialty Care Team Description 07/12/2022 Post-op Visit Ophthalmology Jacky Blanchard MD [address] [facility] [address] [place], [place] [phone] (Jose M ortiz) 07/18/2022 Office Visit Urology Jose Carlos Fisher MD [address] [facility] [address] [place], [place] [phone] (Jose M ortiz) documented as of this encounter Procedures Procedure Name Priority Date/Time Associated Diagnosis Comme nts IMPLANT RECORD - 07/16/2021 10:32 EST SCANNED REPAIR, RETINAL 07/11/2021 14:29 EST Retinal detachmen t of DETACHMENT, WITH right eye with multiple VITRECTOMY retinal tears Special Needs #42 band, #70 sleeve, endodi atehrmy, endolaser, soft tip, SF6 gas, kenalog, block at the end documented in this encounter Results IMPLANT RECORD - SCANNED (07/16/2021 10:32 EST) Specimen (Source) Anatomical Collection Method Collection Time Re ceived Time Location / / Volume Laterality 07/16/2021 10:32 EST Narrative This result has an attachment that is no t available. 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 PROCEDURE/MINOR SURGICAL ORD ERABLES documented in this encounter Visit Diagnoses Diagnosis Retinal detachment of right eye with mul tiple retinal tears Vitreous hemorrhage of right eye (HCC-CM S) (HCC) Vitreous hemorrhage documented in this encounter Admitting Diagnoses Diagnosis Retinal detachment of right eye with mul tiple retinal tears documented in this encounter Administered Medications Inactive Administered Medications - up to 3 most recent administrations Medication Order MAR Action Action Date Dose Rate Site atropine 0.1 mg/mL syringe 0.5 mg 0.5 mg, intravenous, PRN, Starting on Fri07/11/21 at 1 642, Until Fri07/11/21 at 2020, Symptomatic HR < 50, Routine, Recovery (only) cyclopentolate (CYCLOGYL) 1 % Given 07/11/2021 13:07 EST 1 Drop Right Eye ophthalmic solution 1 Drop 1 Drop, right eye, PRE-OP Q 5 MINUTES, 3 doses, Starting on Fri07/11/21 at 1301, Until Fri07/11/21 at 1307, Other, Routine, Preprocedure Given 07/11/2021 13:06 EST 1 Drop Right E ye Given 07/11/2021 13:05 EST 1 Drop Right E ye diphenhydrAMINE (BENADRYL) injection 12. 5 mg 12.5 mg, intravenous, PRN, 1 dose, Starting on 03/24 at 1642, Until Fri07/11/21 at 2020, nausea, Routine, Recovery (only) HYDROmorphone (PF) (DILAUDID) 0.5 mg/0.5 mL syringe 0.25-0.5 mg 0.25-0.5 mg, intravenous, EVERY 10 MINUT ES PRN, Starting on Fri07/11/21 at 1642, Until Fri07/11/21 at 2020, Pain, Routine, Recovery (on ly) lactated ringers (LR) Continued by Anesthesia 07/11/2021 14:39 EST 30 mL/hr infusion 30 mL/hr, intravenous, CONTINUOUS, Starting on Fri07/11/21 at 1245, Until Fri07/11/21 at 2020, Routine, Preprocedure New Bag 07/11/2021 12:56 EST 30 mL/hr 30 mL/hr lactated ringers (LR) infusion at 75 mL/hr, intravenous, CONTINUOUS, St arting on Fri07/11/21 at 1700, Until Fri07/11/21 at 2020, Routine, Recovery (only) metoclopramide (REGLAN) injection 10 mg 10 mg, intravenous, PRN, 1 dose, Startin g on Fri07/11/21 at 1642, Until Fri07/11/21 at 2020, Nausea, Routine, Recovery (only) naloxone (NARCAN) injection 0.2 mg 0.2 mg, intravenous, PRN, Starting on Fri07/11/21 at 1 642, Until Fri07/11/21 at 2020, Opioid Reversal, Routine, Recovery (only) oxyCODONE (ROXICODONE) immediate release tablet 5-10 mg 5-10 mg, oral, EVERY 30 MINUTES PRN, 2 doses, Starting on Fri07/11/21 at 1642, Until Fri07/11/21 at 2020, Pain, Routine, Recovery (on ly) phenylephrine (MYDFRIN) 2.5 % Given 07/11/2021 13:10 EST 1 Drop Right Eye ophthalmic solution 1 Drop 1 Drop, right eye, PRE-OP Q 5 MINUTES, 3 doses, Starting on Fri07/11/21 at 1301, Until Fri07/11/21 at 1310, vitreoretinal surgery, Routine, Preprocedure Given 07/11/2021 13:09 EST 1 Drop Right E ye Given 07/11/2021 13:08 EST 1 Drop Right E ye documented in this encounter Discontinued Medications Medication Sig Discontinue Reason Start Date End Date diazePAM (VALIUM) 10 mg One tab 1 hour and Therapy completed 202007/11/2021 tablet then the second 10 minutes before your scheduled appt. documented as of this encounter Active and Recently Administered Medications Times are shown in EST. Continuous Medication Order 07/09/2021 07/10/2021 07/11/2021 lactated ringers (LR) infusion 1 256 (New Bag - Provider: Lisy Mathias RN)1439 (Continued by Anesthesia - Provider: Sandra Forrest CRNA)1553 (Anesthesia Volume Adjustment - Provider: Sandra Forrest CRNA)1714 (Anesthesia Volume Adjustment - Provider: Sandra Forrest CRNA) at 30 mL/hr, 30 mL/hr, intravenous, CONT INUOUS, Starting on Fri07/11/21 at 1245, Until Fri07/11/21 at 2020, Routine, Preprocedure lactated ringers (LR) infusion 1 700 (Canceled Entry - Provider: Batch Job User Admin - Comment: Automatically canceled at discontinue of medication order) at 75 mL/hr, intravenous, CONTINUOUS, St arting on Fri07/11/21 at 1700, Until Fri07/11/21 at 2020, Routine, Recovery (only) PRN Medication Order 07/09/2021 07/10/2021 07/11/2021 atropine 0.1 mg/mL syringe 0.5 mg 0.5 mg, intravenous, PRN, Starting on 07/11/21 at 1642, Until Fri07/11/21 at 2020, Symptomatic HR < 50, Routine, Recovery (only) balanced salt solution inrrigation solut ion (BSS PLUS) 500 mL, EPINEPHrine HCl (PF) (ADRENALIN) 0.5 mL irrigation (CANCELED) 1534 (Given - Provider: Jacky Blanchard MD) PRN, Starting on Fri07/11/21 at 1534, Un til Fri07/11/21 at 1719, Routine, Intraprocedure balanced salts (BSS) ophthalmic solution (CANCELED) 1534 (Given - Provider: Priscilla Pate) PRN, Starting on Fri07/11/21 at 1534, Un til Fri07/11/21 at 1719, Routine, Intraprocedure chondroitin-sodium hyaluronate (VISCOAT) ophthalmic solution (CA NCELED) 1535 (Given - Provider: Jacky Blanchard MD) PRN, Starting on Fri07/11/21 at 1535, Un til Fri07/11/21 at 1719, Routine, Intraprocedure cyclopentolate (CYCLOGYL) 1 % ophthalmic solution 1 Drop (COMPLE WYATT) 1305 (Given - Provider: Lisy Mathias, RN)1306 (Given - Provider: Lisy Mathias, RN)1307 (Given - Provider: Lisy Mathias, RN) 1 Drop, right eye, PRE-OP Q 5 MINUTES, 3 doses, Starting on Fri07/11/21 at 1301, Until Discontinued, Other, Routine, Preprocedure diphenhydrAMINE (BENADRYL) injection 12.5 mg 12.5 mg, intravenous, PRN, 1 dose, Start ing on Fri07/11/21 at 1642, Until Fri07/11/21 at 2020, nausea, Routine, Recovery (only) HYDROmorphone (PF) (DILAUDID) 0.5 mg/0.5 mL syringe 0.25-0.5 mg 0.25-0.5 mg, intravenous, EVERY 10 MINUT ES PRN, Starting on Fri07/11/21 at 1642, Until Fri07/11/21 at 2020, Pain, Routine, Recovery (only) lidocaine 20 mg/mL (2 %) 5 mL, bupivacai ne (PF) (MARCAINE) 0.75 % (7.5 mg/mL) 5 mL (CANCELED) 1620 (Given - Provid er: Jacky Blanchard MD) PRN, Starting on Fri07/11/21 at 1620, Un til Fri07/11/21 at 1719, Routine, Intraprocedure metoclopramide (REGLAN) injection 10 mg 10 mg, intravenous, PRN, 1 dose, Startin g on Fri07/11/21 at 1642, Until Fri07/11/21 at 2020, Nausea, Routine, Recovery (only) naloxone (NARCAN) injection 0.2 mg 0.2 mg, intravenous, PRN, Starting on We 07/11/21 at 1642, Until Fri07/11/21 at 2020, Opioid Reversal, Routine, Recovery (only) vggioqxx-qldohrwfj-kgejqayhlseui (MAXITROL) ophthalmic ointment (CANCELED) 1537 (Given - Provider: Jacky lBanchard MD) PRN, Starting on Fri07/11/21 at 1537, Until Fri 1 at 1719, Intraprocedure ujvugznp-fzxpvemip-ybjkimhzbi (NEOSPORIN) ophthalmic solution (C ANCELED) 1535 (Given - Provider: Jacky Blanchard MD - Comment: irrigation for buckle components) PRN, Starting on Fri07/11/21 at 1535, Un til Fri07/11/21 at 1719, Routine, Intraprocedure oxyCODONE (ROXICODONE) immediate release tablet 5-10 mg 5-10 mg, oral, EVERY 30 MINUTES PRN, 2 d oses, Starting on Fri07/11/21 at 1642, Until Fri07/11/21 at 202, Pain, Routine, Recovery (only) phenylephrine (MYDFRIN) 2.5 % ophthalmic solution 1 Drop (COMPLE WYATT) 1308 (Given - Provider: Lisy Mathias, STUART)1309 (Given - Provider: Lisy Mathias RN)1310 (Given - Provider: Lisy Mathias RN) 1 Drop, right eye, PRE-OP Q 5 MINUTES, 3 doses, Starting on Fri07/11/21 at 1301, Until Discontinued, vitreoretinal surgery, Routine, Preprocedure sterile water (PF) 2.5 mL with ceFAZolin (ANCEF) 1 g (CANCELED) 1534 (Given - Provider: Jacky Blanchard MD) PRN, Starting on Fri07/11/21 at 1534, Un til Fri07/11/21 at 1719, Routine, Intraprocedure triamcinolone acetonide (KENALOG-40) injection (CANCELED) 1536 (Given - Provider: Jacky Blanchard MD) PRN, Starting on Fri07/11/21 at 1536, Un til Fri07/11/21 at 1719, Routine, Intraprocedure documented in this encounter Orders Medications Ordered That Might Not Have Count Last Ord ered Date First Ordered Date Been Administered atropine 0.1 mg/mL syringe 0.5 mg 1 07/11/2021 balanced salt solution inrrigation 1 07/11/2021 solution (BSS PLUS) 500 mL, EPINEPHrine HCl (PF) (ADRENALIN) 0.5 mL irrigation balanced salts (BSS) ophthalmic solution 1 12/08/2 021 chondroitin-sodium hyaluronate (VISCOAT) 1 ophthalmic solution diphenhydrAMINE (BENADRYL) injection 12.5 1 2020 mg HYDROmorphone (PF) (DILAUDID) 0.5 mg/0.5 1 mL syringe 0.25-0.5 mg lactated ringers (LR) infusion 1 07/11/2021 lidocaine (PF) 10 mg/mL (1 %) injection 2 1 2020 mg lidocaine 20 mg/mL (2 %) 5 mL, bupivacaine 1 07/11 (PF) (MARCAINE) 0.75 % (7.5 mg/mL) 5 mL metoclopramide (REGLAN) injection 10 mg 1 07/11/20 naloxone (NARCAN) injection 0.2 mg 1 07/11/2021 lmxvidym-wsidycbui-qnyjjlqtvfggd 1 07/11/2021 (MAXITROL) ophthalmic ointment vheduxse-blagtzjhm-pyvcebqxlx (NEOSPORIN) 1 2020 ophthalmic solution oxyCODONE (ROXICODONE) immediate release 1 tablet 5-10 mg sterile water (PF) 2.5 mL with ceFAZolin 1 (ANCEF) 1 g triamcinolone acetonide (KENALOG-40) 1 07/11/2021 injection Discharge Count Last Ordered Date First Ordered Date DISCHARGE PATIENT 1 07/11/2021 documented in this encounter Care Teams 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
--- OUTSIDE RECORDS SUMMARY | 2022-07-05 02:47 | XMS_ITS | Encounter Summary ---
:1950 Author Organization [facility] Address [address] [place] [address] Care Team Providers Name Role Phone Yosi Graham 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 Procedures MD RPR RETINAL DTCHMNT W/VITRECTOMY ANY METH REPAIR, RETINAL DETACHMENT, WITH VITRECTOMY Referral ID Status Reason Start Date Expiration Date Visits Requ ested Visits Authorized [id number] 1 1 Encounter Details Date Type Department Care Team Description 07/11/2021 Surgery [facility] OR Jacky Blanchard MD Scleral Buckle, Pars [address] Plana Vitrectomy, [place], [place] [id number] [place] [address], Altus laser , SF6 gas RIGHT [phone] Pavili, Level 5 EYE [[id number] (CPT??)] [place] [address] (Wo rk) Surgery Details Date/Time Status Location OR Service Patient Class Case Case Trauma Class Type Case? 07/11/21 1330 Posted [facility] OR [facility] - Less Outpatient than 24 Surgery hours Panel 1 Procedure LRB Anes Op Region Wound Class Commen ts Scleral Buckle, Pars [place] Right General Eye Class I/ Clean Vitrectomy, laser , SF6 gas RIGHT EYE Surgeon Surgeon Role Service Panel Jacky Blanchard MD Primary Ophthalmology 1 Special Needs #42 band, #70 sleeve, endodiatehrmy, end olaser, soft tip, SF6 gas, kenalog, block at the end documented in this encounter Social History Tobacco Use Types Packs/Day Years Used Date Smoking Tobacco: Never Smokeless Tobacco: Never Alcohol Use Standard Drinks/Week Comments Yes 1 (1 standard drink = 0.6 oz pure alcoho l) Sex Assigned at Date Recorded Not on file documented as of this encounter Last Filed Vital Signs Vital Sign Reading Time Taken Comments Blood Pressure 154/74 07/11/2021 1218 EST Pulse - - Temperature 36.7 ??C (98.1 ??F) 07/11/2021 1218 EST Respiratory Rate 16 07/11/2021 1218 EST Oxygen Saturation 98% 07/11/2021 1218 EST Inhaled Oxygen Concentration - - Weight [...] - AVS First Jacky Kilpatrick MD - 07/11/2021 17:14 EST Position face [...] Jacky Blanchard MD - 07/11/2021 1704 ESTProcedure(s): MD RPR RETINAL DTCHMNT W/VITRECTOMY ANY METH Pre-Procedure Diagnose(s): Retinal detachment with multiple retinal tears, right; Vitreous hemorrhage of right eye ([facility]) ([facility]) Surgery date: 07/11/2021 Pre-operative diagnosis: Retinal detachment [...] using a #69 crescent-shaped blade and a Lucíaroreinierjo dissector. A #42 silicone band was passed [...] Post-op Visit Ophthalmology Jacky Blanchard MD [address] [facility], [facility] [address] [place], [place] [address] (Wo rk) 07/18/2022 Office Visit Urology Jose Carlos Fisher MD [address] [phone] (Wo rk) documented as of this encounter [...] that is no t available. Scan 2 Software Technician PROCEDURE/MINOR SURGICAL ORD ERABLES documented in this encounter Visit Diagnoses Diagnosis Retinal detachment of right eye with mul tiple retinal tears Retinal detachment of right eye with mul tiple retinal tears documented in this encounter Admitting Diagnoses Diagnosis [...] Routine, Recovery (only) balanced salt solution inrrigation Given 07/11/2021 15:34 EST 50 0 mL Right Eye solution (BSS PLUS) 500 mL, EPINEPHrine HCl (PF) (ADRENALIN) 0.5 mL irrigation PRN, Starting on Fri07/11/21 at 1534, Until Fri07/11/21 at 1719, Routine, Intraprocedure balanced salts (BSS) ophthalmic solution Given 07/11/2021 15:34 EST 5 mL PRN, Starting on Fri07/11/21 at 1534, Until Fri07/11/21 at 1719, Routine, Intraprocedure chondroitin-sodium hyaluronate (VISCOAT) Given 07/11/2021 15:35 EST 1 Each ophthalmic solution PRN, Starting on Fri07/11/21 at 1535, Until Fri07/11/21 at 1719, Routine, Intraprocedure cyclopentolate (CYCLOGYL) 1 % Given 07/11/2021 13:07 [...] Until Fri07/11/21 at 2020, Routine, Recovery (only) lidocaine 20 mg/mL (2 %) 5 mL, Given 07/11/2021 16:20 EST 5 mL Right Eye bupivacaine (PF) (MARCAINE) 0.75 % (7.5 mg/mL) 5 mL PRN, Starting on Fri07/11/21 at 1620, Until Fri07/11/21 at 1719, Routine, Intraprocedure metoclopramide (REGLAN) injection 10 mg 10 mg, intravenous, PRN, 1 dose, Startin g on Fri07/11/21 at 1642, Until Fri07/11/21 at 2020, Nausea, Routine, Recovery (only) naloxone (NARCAN) injection 0.2 mg 0.2 mg, intravenous, PRN, Starting on Fri07/11/21 at 1 642, Until Fri07/11/21 at 2020, Opioid Reversal, Routine, Recovery (only) csoyqocx-cwirukvcu-xjdddvjrudegn (MAXITROL) Given 07/11/2021 15: 37 EST 1 mg ophthalmic ointment PRN, Starting on Fri07/11/21 at 1537, Until Fri07/11/21 at 1719, Intraprocedure wxerakzc-mjeqksulk-zhrfyhtgue (NEOSPORIN) Given 07/11/2021 15:35 EST 5 mL ophthalmic solution PRN, Starting on Fri07/11/21 at 1535, Until Fri07/11/21 at 1719, Routine, Intraprocedure oxyCODONE (ROXICODONE) [...] 13:08 EST 1 Drop Right E ye sterile water (PF) 2.5 mL with ceFAZolin Given 07/11/2021 15:34 EST 2.5 mL (ANCEF) 1 g PRN, Starting on Fri07/11/21 at 1534, Until Fri07/11/21 at 1719, Routine, Intraprocedure triamcinolone acetonide (KENALOG-40) Given 07/11/2021 15:36 EST 40 mg Right Eye injection PRN, Starting on Fri07/11/21 at 1536, Until Fri07/11/21 at 1719, Routine, Intraprocedure documented in this encounter Discontinued [...] mg 0.5 mg, intravenous, PRN, Starting on We d 07/11/21 at 1642, Until Fri07/11/21 at 2020, [...] (COMPLE WYATT) 1305 (Given - Provider: Lisy Mathias RN)1306 (Given - Provider: Lisy Mathias RN)1307 (Given - Provider: Lisy Mathias RN) 1 [...] at 2020, Opioid Reversal, Routine, Recovery (only) vfbqsqne-zvktnckwc-phxalbcwqmwhc (MAXITROL) ophthalmic ointment (CANCELED) 1537 (Given - Provider: Jacky Blanchard MD) PRN, Starting on Fri07/11/21 at 1537, Until Fri 1 at 1719, Intraprocedure raovwyqn-qfqrqjbyn-kyowazmutk (NEOSPORIN) ophthalmic solution (C ANCELED) 1535 (Given - Provider: Jacky Blanchard MD - Comment: irrigation for buckle components) PRN, Starting on Fri07/11/21 at 1535, Un til Fri07/11/21 at 1719, Routine, Intraprocedure oxyCODONE (ROXICODONE) immediate release tablet 5-10 mg 5-10 mg, oral, EVERY 30 MINUTES PRN, 2 d oses, Starting on Fri07/11/21 at 1642, Until Fri07/11/21 at 2020, Pain, Routine, Recovery (only) phenylephrine (MYDFRIN) 2.5 % ophthalmic solution 1 Drop (COMPLE WYATT) 1308 (Given - Provider: Lisy Mathias, RN)1309 (Given - Provider: Lisy Mathias, RN)1310 (Given - Provider: Lisy Mathias, RN) 1 [...] 0.1 mg/mL syringe 0.5 mg 1 07/11/2021 diphenhydrAMINE (BENADRYL) injection 12.5 1 2020 mg HYDROmorphone (PF) (DILAUDID) 0.5 mg/0.5 1 021 mL syringe 0.25-0.5 mg lactated ringers (LR) infusion 1 07/11/2021 lidocaine (PF) 10 mg/mL (1 %) injection 2 1 2020 mg metoclopramide (REGLAN) injection 10 mg 1 07/11/20 21 naloxone (NARCAN) injection 0.2 mg 1 07/11/2021 oxyCODONE (ROXICODONE) immediate release 1 021 tablet 5-10 mg Discharge Count Last Ordered Date First Ordered Date DISCHARGE PATIENT 1 07/11/2021 documented in this encounter Care Teams Pumper Helper Relationship Specialty Start Date End Date Yosi Graham, EDER PCP - General 07/05/16 12/17/[address] [address] documented as of this encounter
--- OUTSIDE RECORDS SUMMARY | 2022-07-05 02:47 | XMS_ITS | Encounter Summary ---
:1950 Author Organization [facility] Address [address] [place] [address] Care Team Providers Name Role Phone Janet Sweetie Primary Care Provider Reason for Visit Reason Comments Post-OP Follow Up Encounter Details Date Type Department Care Team Description 12/25/2021 Post-op Visit [facility] Sandra Sampson, right eye (Primary Dx); Ophthalmology - Main Concepcion Herrera ed type age-related cataract, left eye; Aurelia MD History of retinal detachment; [facility] [address] Proliferative vitreoretin[place] [address] Avenue [phone] [facility] [address] [place] [address] Social History Tobacco Use Types [...] Sig Dispensed Refills Start Date End Date ketOROLAC (ACULAR) 0.5 % Place 1 Drop into 10 mL 3 12/03/13/2022 ophthalmic solution the right eye 4 times daily for 34 days. Use for 3 days before cataract surgery and 1 month after prednisoLONE (PRED FORTE) Place 1 Drop into 10 mL 3 01/21/2022 1 % ophthalmic suspension the right eye 4 times daily for 31 days. Use for one month after cataract surgery moxifloxacin (VIGAMOX) Place 1 Drop into 3 mL 3 2 01/03/2022 0.5 % ophthalmic solution the right eye 4 times daily for 13 days. Use for 3 days before surgery and 10 days after documented in this encounter Progress Notes Rodney Sampson MD - 12/25/2021 4134 EDT Department of Ophthalmology / Cataract/Cornea Office Visit Note Referring physician: Rodney Gardner* Local Eye Locks Inspector: Family Physician (PCP): Sweetie Gonzales Other Physician: History of Present Illness: This HPI section must be documented by the physician (or scribe upon the dictation of the physician). It should not be documented independently by the accelerator technician/scribe in the absence of the physician. Chief Complaint Patient presents with ??? Post-OP Follow Up Comments 1 day post cataract surgery, right eye, with placement of a 3-piece PCIOL with a plano refractive target. He as a history of a macula-off retinal detachment and has proliferative vitreoretinopathy, and may undergo additional vitreoretinal procedures soon. States doing well, and had no eye pain or nausea overnight. Using Pred Forte, ketorolac and Vigamox, all 4/-. EXAMINATION: Base Eye Exam Visual Acuity (Snellen - Linear) Right Left Dist cc 20/300 Dist ph cc 20/150 Correction: Glasses Tonometry (Applanation, 9:33) Right Left Pressure 18 Neuro/Psych Oriented x3: Yes Mood/Affect: Normal Slit Lamp and Fundus Exam Slit Lamp Exam Right Left Lids/Lashes Normal Conjunctiva/Sclera conjunctival scarring Cornea Mild edema centrally, Laurie negative, no epithelial defect Anterior Chamber 1+ Cell Iris Round and reactive Lens Posterior chamber intraocular lens OPHTHALMOLOGY TESTING: [To insert test results, first enter the results in Doc Flowsheet and then use dot phrase .OPHTESTEXAM to choose the results module(s) to pull into this note] IMPRESSION / PLAN: Encounter Diagnoses Name Primary? Pseudophakia, right eye Yes ??? Mixed type age-related cataract, left eye ??? History of retinal detachment ??? Proliferative vitreoretinopathy of right eye - doing well one day post cataract surgery right eye, done with topical anesthesia with placement ofa 3-piece acryllic Tecnis monofocal IOL with PMMA haptics) with a plano refractive target in the capsular bag. Mild corneal stromal edema is present. Plan: Continue using prednisolone acetate 1%, ketorolac and moxifloxacin qid in the right eye per the cataract surgery protocol. Plan follow-up with Dr. Blanchard as scheduled next week - he may proceed with additional vitreoretinal procedures. No follow-up with me (Taco Sampson) was scheduled, but I'd behappy to see him back any time and appreciate being involved in his care. Scribe Attestation: I am scribing for Rodney Sampson MD while he is personally performing the service. Yessi Rodriguez, DWIGHT (Scribe) Time spent: documented in this encounter Plan of Treatment Upcoming Encounters Date Type Specialty Care Team Description 07/12/2022 Post-op Visit Ophthalmology Jacky Blanchard MD [address] [phone] (Wo angel) 07/18/2022 Office Visit Urology Jose Carlos Fisher MD [address] [phone] (Wo rk) documented as of this encounter Visit Diagnoses Diagnosis Pseudophakia, right eye - Primary Lens replaced by other means Mixed type age-related cataract, left ey e History of retinal detachment Personal history of other disorders of n ervous system and sense organs 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 1 drop QID 3 days prior to surgery and 10 days after prednisoLONE (PRED FORTE) Place 1 Drop into Order modification 10/0212/25/2021 1 % ophthalmic suspension the right eye 4 times daily. ketOROLAC (ACULAR) 0.5 % Place 1 Drop into Order modification 11/2212/25/2021 ophthalmic solution the right eye 4 times daily. 1 drop QID 3 days prior to surgery and 1 month after documented as of this encounter Eye Exam Visual Acuity (Snellen - Linear) Right eye Left eye Dist cc 20/300 Dist ph cc 20/150 Correction: Glasses Tonometry (Applanation, 9:33) Right eye Left eye Pressure 18 Neuro/Psych Oriented x3: Yes Mood/Affect: Normal Slit Lamp Exam Right eye Left eye Lids/Lashes Normal Conjunctiva/Sclera conjunctival scarring Cornea Mild edema centrally, Laurie negative, n o epithelial defect Anterior Chamber 1+ Cell Iris Round and reactive Lens Posterior chamber intraocular lens Care Teams Textile Machinery Instructor Relationship Specialty Start Date End Date Sweetie Gonzales PCP - General Family Medicine - Primary 12/18/21 04/09/[address] [place] [address] [place] [phone] documented as of this encounter
--- OUTSIDE RECORDS SUMMARY | 2022-07-05 02:47 | XMS_ITS | Encounter Summary ---
:1950 Author Organization [facility] Address [address] [place] [address] Care Team Providers Name Role Phone JanetSweetie bender Primary Care Provider Reason for Visit Auth/Cert Specialty Diagnoses / Procedures Referred By Contact Refer red To Contact Diagnoses Proliferative retinopathy of right eye Procedures MA RPR RETINAL DTCHMNT W/VITRECTOMY ANY METH Vitrectomy, Silicone Oil Removal, Retinectomy, Oil vs Gas, RIGHT EYE Referral ID Status Reason Start Date Expiration Date Visits Requ ested Visits Authorized [id number] 1 1 Encounter Details Date Type Department Care Team Description 01/21/2022 Hospital Encounter [facility] OR Jacky Blanchard MD 111 [facility] [address] [phone] [place], [address] [place] [address] (Wo rk) Social History Tobacco Use Types Packs/Day Years Used Date Smoking Tobacco: Never Smokeless Tobacco: Never Alcohol Use Standard Drinks/Week Comments Yes 3 (1 standard drink = 0.6 oz pure alcoho l) Sex Assigned at Date Recorded Not on file documented as of this encounter Last Filed Vital Signs Vital Sign Reading Time Taken Comments Blood Pressure 155/89 01/21/2022 1315 EDT Pulse - - Temperature 36.5 ??C (97.7 ??F) 01/21/2022 1315 EDT Respiratory Rate 10 01/21/2022 1315 EDT Oxygen Saturation 96% 01/21/2022 1315 EDT Inhaled Oxygen Concentration - - Weight 97.1 kg (214 lb 1.1 oz) 01/21/2022 0919 EDT Height 170.2 cm (5' 7) 01/21/2022 09 EDT Body Mass Index 33.53 01/21/2022 0919 EDT documented in this encounter Functional Status [...] - AVS First Jacky Kilpatrick MD - 01/21/2022 13:18 EDT Keep patch on the eye until [...] Code Departure Means Destination Home or Self Nursing Home documented in this encounter H&P Notes Jacky Blanchard MD - 01/21/2022 0840 EDT In reviewing the chart, I see Po Matthews had a Pre-surgical History & Physical completed within the last 30 days. The following is a copy of that H&P note from the encounter associated with the physical. The note has been copied for review and update purposes within the scheduled perioperative encounter. Jacky Blanchard MD 01/21/2022 8:40 documented in this encounter Procedure Notes Jacky Blanchard MD - 01/21/2022 1320 EDTProcedure(s): MA VITRECTOMY,MECHANICAL Pre-Procedure Diagnose(s): Proliferative vitreoretinopathy of right eye; Pseudophakia Surgery date: 01/21/2022 Pre-operative diagnosis: Proliferative vitreoretinopathy, pseudophakia right eye S/p 12/24/2021 CE+IOL s/p 10/10/2021 PPV, EL, SO for recurrent retinal detachment?? s/07/11/2021??SB, PPV, EL, SF6, STK for VH and RD/RT S/p 03/21/2021 and 03/28/2021 laser retin[address] for peripheral RD with 3 tears Post operative diagnosis: same Surgery: Pars plana vitrectomy, silicone oil removal right eye Surgeon: Jacky Blanchard MD Anesthesia: Local RB with sedation Findings: Proliferative vitreoretinopathy without detachment, over scleral buckle amid area of laserscars Technique: Patient was identified in the pre-operative [...] were no problems with the cannula placements. Silicone oil was extruded from the eye through one of the cannulas and two successive flui-air and air-fluid exchange cycles were performed to remove any residual droplets. Core vitrectomy was previously performed and no residual vitreous was left to shave peripherally. Careful examination of the retina through the Resight wide angle lens, using scleral indentation, revealed 9 clock hours of proliferative vitreoretinopathy without retinal detachment, over scleral buckle and amid area of laser scars. Retinectomy was deemed too risky to attempt. The vitreous cavity was left filled with fluid. All 3 cannulas were removed, and each [...] None. documented in this encounter Nursing Notes Monica Alford RN - 01/21/2022 1010 EDT Preop Covid DOS screening questionnaire Please document by exception (only check those that apply). Have you had any of the following symptoms recently? no Yes Chronic ? Cough Shortness of breath [...] for COVID by PCR and or home test?no Were you covid tested? yes When: 01/18/2022 Results: negative Vaccinated: YES See admission vital signs documentation for admission temperature. documented in this encounter Plan of Treatment Upcoming Encounters Date Type Specialty Care Team Description 07/12/2022 Post-op Visit Ophthalmology Jacky Blanchard MD 111 [facility], [facility] [address] [place], [place] [phone] (Wo rk) 07/18/2022 Office Visit Urology Jose Carlos Fisher MD 111 [facility], [address] [place] [phone] (Wo rk) documented as of this encounter Procedures Procedure Name Priority Date/Time Associated Diagnosis Comme nts REPAIR, RETINAL 01/21/2022 11:41 EDT Proliferative DETACHMENT, WITH retinopathy of right eye VITRECTOMY documented in this encounter Visit Diagnoses Diagnosis Proliferative vitreoretinopathy of right eye - Primary Other nondiabetic proliferative retinopa thy documented in this encounter Administered Medications Inactive Administered Medications - up to 3 most recent administrations Medication Order MAR Action Action Date Dose Rate Site acetaminophen (TYLENOL) solution unit do se cup 995 mg 995 mg (rounded from 1,000 mg), oral, MA N, 1 dose, Starting on Fri01/21/22 at 1253, Until Fri01/21/22 at 1544, Pain, Routine, Recovery (on ly) acetaminophen (TYLENOL) tablet 1,000 mg 1,000 mg, oral, PRN, 1 dose, Starting on Fri01/21/22 at 1253, Until Fri01/21/22 at 1544, Pain, Routine, Recovery (only) atropine 0.1 mg/mL syringe 0.5 mg 0.5 mg, intravenous, PRN, Starting on Fri01/21/22 at 1 253, Until Fri01/21/22 at 1544, Symptomatic HR < 50, Routine, Recovery (only) cyclopentolate (CYCLOGYL) 1 % ophthalmic Given 01/21/2022 10:51 EDT 1 Drop solution 1 Drop 1 Drop, right eye, PRE-OP Q 5 MINUTES, 3 doses, Starting on Fri01/21/22 at 1041, Until Fri01/21/22 at 1051, Other, Routine, Preprocedure Given 01/21/2022 10:46 EDT 1 Drop Given 01/21/2022 10:41 EDT 1 Drop lactated ringers (LR) Continued by Anesthesia 01/21/2022 11:51 EDT 30 mL/hr infusion 30 mL/hr, intravenous, CONTINUOUS, Starting on Fri01/21/22 at 1045, Until Fri01/21/22 at 1544, Routine, Preprocedure New Bag 01/21/2022 10:27 EDT 30 mL/hr 30 mL/hr lactated ringers (LR) infusion at 75 mL/hr, intravenous, PACU CONTINUOU S, Starting on Fri01/21/22 at 1315, Until Fri01/21/22 at 1544, Routine, Recovery (only) naloxone (NARCAN) injection 0.2 mg 0.2 mg, intravenous, PRN, Starting on Fri01/21/22 at 1 253, Until Fri01/21/22 at 1544, Opioid Reversal, Routine, Recovery (only) phenylephrine (MYDFRIN) 2.5 % ophthalmic Given 01/21/2022 10:52 EDT 1 Drop solution 1 Drop 1 Drop, right eye, PRE-OP Q 5 MINUTES, 3 doses, Starting on Fri01/21/22 at 1041, Until Fri01/21/22 at 1052, vitreoretinal surgery, Routine, Preprocedure Given 01/21/2022 10:47 EDT 1 Drop Given 01/21/2022 10:42 EDT 1 Drop documented in this encounter Discontinued Medications Medication Sig Discontinue Reason Start Date End Date prednisoLONE (PRED Place 1 Drop into 12/24/2021 06 FORTE) 1 % ophthalmic the right eye 4 suspension times daily for 31 days. Use for one month after cataract surgery documented as of this encounter Active and Recently Administered Medications Times are shown in EDT. Continuous Medication Order 01/19/2022 01/20/2022 01/21/2022 lactated ringers (LR) infusion 1 027 (New Bag - Provider: Monica Dunham RN)1151 (Continued by Anesthesia - Provider: CHETAN Werner)1308 (Anesthesia Volume Adjustment - Provider: CHTEAN Werner) at 30 mL/hr, 30 mL/hr, intravenous, CONT INUOUS, Starting on Fri01/21/22 at 1045, Until Fri01/21/22 at 1544, Routine, Preprocedure lactated ringers (LR) infusion 1 315 (Canceled Entry - Provider: Batch Job User Admin - Comment: Automatically canceled at discontinue of medication order) at 75 mL/hr, intravenous, PACU CONTINUOU S, Starting on Fri01/21/22 at 1315, Until Fri01/21/22 at 1544, Routine, Recovery (only) PRN Medication Order 01/19/2022 01/20/2022 01/21/2022 acetaminophen (TYLENOL) solution unit dose cup 995 mg(Linked Destiny up 1) 995 mg (rounded from 1,000 mg), oral, MA N, 1 dose, Starting on 01/21/22 at 1253, Until Fri01/21/22 at 1544, Pain, Routine, Recovery (only) acetaminophen (TYLENOL) tablet 1,000 mg(Linked Group 1) 1,000 mg, oral, PRN, 1 dose, Starting on Fri01/21/22 at 1253, Until Fri01/21/22 at 1544, Pain, Routine, Recovery (only) atropine 0.1 mg/mL syringe 0.5 mg 0.5 mg, intravenous, PRN, Starting on Mo n 01/21/22 at 1253, Until Fri01/21/22 at 1544, Symptomatic HR < 50, Routine, Recovery (only) balanced salt solution inrrigation solut ion (BSS PLUS) 500 mL, EPINEPHrine HCl (PF) (ADRENALIN) 0.5 mL irrigation (CANCELED) 1219 (Given - Provider: Jacky Blanchard MD - Comment: infusion during procedure BSS part 1 lot [id number] BSS part 2 lot [id number] Epi lot [id number]) PRN, Starting on Fri01/21/22 at 1219, Un til 01/21/22 at 1305, Routine, Intraprocedure balanced salts (BSS) ophthalmic solution (CANCELED) 1218 (Given - Provider: Jacky Blanchard MD - Comment: topical) PRN, Starting on Fri01/21/22 at 1218, Un til 01/21/22 at 1305, Routine, Intraprocedure chondroitin-sodium hyaluronate (VISCOAT) ophthalmic solution (CA NCELED) 1218 (Given - Provider: Jacky Blanchard MD - Comment: topical lot [id number]) PRN, Starting on Fri01/21/22 at 1218, Un til 01/21/22 at 1305, Routine, Intraprocedure cyclopentolate (CYCLOGYL) 1 % ophthalmic solution 1 Drop (COMPLE WYATT) 1041 (Given - Provider: Monica Dunham RN)1046 (Given - Provider: Monica Dunham RN)1051 (Given - Provider: Monica Dunham RN) 1 Drop, right eye, PRE-OP Q 5 MINUTES, 3 doses, Starting on Fri01/21/22 at 1041, Until Discontinued, Other, Routine, Preprocedure lidocaine 20 mg/mL (2 %) 5 mL, bupivacai ne (PF) (MARCAINE) 0.75 % (7.5 mg/mL) 5 mL (CANCELED) 1200 (Given - Provid er: Jacky Blanchard MD - Comment: Lidocaine 2% [id number] Bupivacaine 0.75% [id number]) PRN, Starting on Fri01/21/22 at 1200, Un til 01/21/22 at 1305, Routine, Intraprocedure methylPREDNISolone sod suc(PF) (SOLU-MEDROL) injection (CANCELED ) 1252 (Given - Provider: Jacky Blanchard MD - Comment: [id number]) PRN, Starting on Fri01/21/22 at 1252, Un til 01/21/22 at 1305, Routine, Intraprocedure naloxone (NARCAN) injection 0.2 mg 0.2 mg, intravenous, PRN, Starting on Mo n 01/21/22 at 1253, Until Fri01/21/22 at 1544, Opioid Reversal, Routine, Recovery (only) zowiqgwf-jzetqygii-krjtqcgkekbcn (MAXITROL) ophthalmic ointment (CANCELED) 1252 (Given - Provider: Jacky Blanchard MD - Comment: [id number]) PRN, Starting on Fri01/21/22 at 1252, Until Fri 2 at 1305, Intraprocedure phenylephrine (MYDFRIN) 2.5 % ophthalmic solution 1 Drop (COMPLE WYATT) 1042 (Given - Provider: Monica Dunham RN)1047 (Given - Provider: Monica Dunham, STUART)1052 (Given - Provider: Monica Dunham RN) 1 Drop, right eye, PRE-OP Q 5 MINUTES, 3 doses, Starting on Fri01/21/22 at 1041, Until Discontinued, vitreoretinal surgery, Routine, Preprocedure sterile water (PF) 2.5 mL with ceFAZolin (ANCEF) 1 g (CANCELED) 1224 (Given - Provider: Jacky Blanchard MD - Comment: Ancef [id number] Sterile water [id number]) PRN, Starting on Fri01/21/22 at 1224, Un til Fri01/21/22 at 1305, Routine, Intraprocedure Linked Groups Order Group 1: acetaminophen (TYLENOL) solution unit dose cup 995 mgJump to med 995 mg (rounded from 1,000 mg), oral, MA N, 1 dose, Starting on Fri01/21/22 at 1253, Until Fri01/21/22 at 1544, Pain, Routine, Recovery (only) Or acetaminophen (TYLENOL) tablet 1,000 mgJump to med 1,000 mg, oral, PRN, 1 dose, Starting on Fri01/21/22 at 1253, Until Fri01/21/22 at 1544, Pain, Routine, Recovery (only) documented in this encounter Orders Medications Ordered That Might Not Have Count Last Ord ered Date First Ordered Date Been Administered acetaminophen (TYLENOL) solution unit dose 01/21 cup 995 mg acetaminophen (TYLENOL) tablet 1,000 mg 01/22/20 atropine 0.1 mg/mL syringe 0.5 mg 01/21/2022 balanced salt solution inrrigation 01/21/2022 solution (BSS PLUS) 500 mL, EPINEPHrine HCl (PF) (ADRENALIN) 0.5 mL irrigation balanced salts (BSS) ophthalmic solution chondroitin-sodium hyaluronate (VISCOAT) ophthalmic solution lactated ringers (LR) infusion 01/21/2022 lidocaine (PF) 10 mg/mL (1 %) injection 2 2021 mg lidocaine 20 mg/mL (2 %) 5 mL, bupivacaine 01/21 (PF) (MARCAINE) 0.75 % (7.5 mg/mL) 5 mL methylPREDNISolone sod suc(PF) 01/21/2022 (SOLU-MEDROL) injection naloxone (NARCAN) injection 0.2 mg 01/21/2022 ejkwkoot-qcdthvqfc-mijuwprknlcrf 01/21/2022 (MAXITROL) ophthalmic ointment sterile water (PF) 2.5 mL with ceFAZolin (ANCEF) 1 g Discharge Count Last Ordered Date First Ordered Date DISCHARGE PATIENT 1 01/21/2022 documented in this encounter Care Teams Denture Finisher Relationship Specialty Start Date End Date Sweetie Gonzales PCP - General Family Medicine - Primary 12/18/21 04/09/22 [address] [facility] [facility] [place] [phone] documented as of this encounter
--- OUTSIDE RECORDS SUMMARY | 2022-07-05 02:47 | XMS_ITS | Encounter Summary ---
:1950 Author Organization [facility] Address [address] [place] [address] Care Team Providers Name Role Phone Sweetie Gonzales Primary Care Provider Yosi Graham RPA Primary Care Provider Reason for Visit Reason Onset Date Comments Appointment Related 01/30/2022 Encounter Details Date Type Department Care Team Description 01/30/2022 Telephone [facility] Jacky Blanchard MD Appointment Related Ophthalmology - [address] [facility] [address] [place] [phone] [facility], [place] [address] (Wo rk) Social History Tobacco [...] this encounter Miscellaneous Notes Telephone Encounter - Ann-Marie Merlos - 01/30/2022 1441 EDT Appointment scheduled Telephone Encounter - Ann-Marie Merlos - 01/30/2022 1250 EDT Lmom for pt to call back and schedule next appt. Reminder has been placed documented in this encounter Plan of Treatment Upcoming Encounters Date Type Specialty Care Team Description 07/12/2022 Post-op Visit Ophthalmology Jacky Blanchard MD [address] [phone] (Wo rk) 07/18/2022 Office Visit Urology Jose Carlos Fisher MD 111 [facility] [address] [place], [place] [phone] (Wo rk) documented as of this encounter Visit Diagnoses Not on filedocumented in this encounter Care Teams Business Services Intern Relationship Specialty Start Date End Date Sweetie Gonzales PCP - General Family Medicine - Primary 12/18/21 04/09/22 [address] [facility] [place] [phone] Yosi Graham RPA PCP - General Family Medicine - Primary 04/10/[address] [address] documented as of this encounter
--- OUTSIDE RECORDS SUMMARY | 2022-07-05 02:47 | XMS_ITS | Encounter Summary ---
:1950 Author Organization [facility] Address [address] [place] [address] Care Team Providers Name Role Phone Yosi Graham EDER Primary Care Provider [phone] Reason for Visit Reason Comments Post-OP Follow Up Encounter Details Date Type Department Care Team Description 09/20/2021 Office Visit [facility] Jacky Blanchard MD Ophthalmology - [address], [address], [address] [place], [place] [id number] [place] [address] [phone] (Wo rk) Social History Tobacco Use [...] encounter Progress Notes Jacky Blanchard MD - 09/20/2021 0815 EST Chief Complaint Patient presents with ??? Post-OP Follow Up Comments RD repair right eye. S/p PPV, SB, laser, SF6, STK right eye 07/11/2021 HPI Location: Right eye Pain: 0 - No pain Quality: Blurry Severity: Moderate Duration: Months Timing: Constant Lasts: Continuous Context: RD repair right eye. = Modifying factors: S/p PPV, SB, laser, SF6, STK right eye 07/11/2021 Associated Signs & Symptoms: Vision seems to be getting more blurry, cataract related? No flashes or floaters and no eye pain Visual Fluctuations: None Attestation: Base Eye Exam Visual Acuity (Snellen - Linear) Right Left Dist sc 20/70 +2 Dist cc 20/80 +1 20/25 -1 Dist ph cc NI Correction: Glasses Tonometry (Applanation, 8:27) Right Left Pressure 17 18 Pupils Dark Light Shape Right 3 2 Round Left 2 1 Round Neuro/Psych Oriented x3: Yes Mood/Affect: Normal Dilation Both eyes: Tropicamide 1%, Phenylephrine 2.5% @ 8:27 Slit Lamp and Fundus Exam Slit Lamp Exam Right Left Lids/Lashes Normal Normal Conjunctiva/Sclera well closed peritomy, vicryl sutures White and quiet Cornea Clear Clear Anterior Chamber Deep and quiet Deep and quiet Iris Dilated dilated Lens 1+ Posterior capsular opacification, 1+ Nuclear sclerosis 1+ Cortical cataract Vitreous clear s/p PPV Fundus Exam Right Left Disc Healthy Rim Healthy Rim C/D Ratio 0.3 Macula healthy, attached Normal Vessels Normal Normal Periphery Retina attached over scleral buckle w/ 360 laser scars, PVR @ 6 attached no predisposing lesion Please refer to large retinal drawing. DIAGNOSES: 1. 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 Nuclear senile cataract of both eyes Assessment Retina attached s//??SB,PPV,EL,SF6, STK for VH and RD/RT PVR @6 posterior to SB PSC -recommend cataract evaluation Will arrange appt with Dr Sampson Stop??Prednisolone drops Left eye Retina attached, no predisposing lesions to retinal detachment. No PVD Monitor Return in 1 month with OCT sooner PRN I have reviewed the past medical, [...] Visit Ophthalmology Jacky Blanchard MD [address] [phone] (Wo rk) 07/18/2022 Office Visit Urology Jose Carlos Fisher MD [address] [phone] (Wo rk) documented as of this encounter Visit Diagnoses Diagnosis Retinal detachment of right eye with mul tiple retinal tears - Primary Nuclear senile cataract of both eyes documented in this encounter Eye Exam Visual Acuity (Snellen - Linear) Right eye Left eye Dist sc 20/70 +2 Dist cc 20/80 +1 20/25 -1 Dist ph cc NI Correction: Glasses Tonometry (Applanation, 8:27) Right eye Left eye Pressure 17 18 Pupils Dark Light Shape Right eye 3 2 Round Left eye 2 1 Round Neuro/Psych Oriented x3: Yes Mood/Affect: Normal Dilation Both eyes: Tropicamide 1%, Phenylephrine 2.5% @ 8:27 Slit Lamp Exam Right eye Left eye Lids/Lashes Normal Normal Conjunctiva/Sclera well closed peritomy, vicryl sutures Whi te and quiet Cornea Clear Clear Anterior Chamber Deep and quiet Deep and quiet Iris Dilated dilated Lens 1+ Posterior capsular opacification, 1+ 1+ Cortical cataract Nuclear sclerosis Vitreous clear s/p PPV clear Fundus Exam Right eye Left eye Disc Healthy Rim Healthy Rim C/D Ratio 0.3 Macula healthy, attached Normal Vessels Normal Normal Periphery Retina attached over scleral buckle w/ 3 60 attached no predisposing lesion laser scars, PVR @ 6 Care Teams Cotton Tipper Relationship Specialty Start Date End Date Yosi Graham, RPA PCP - General 12/2/16 5/16/[address] [place] [phone] documented as of this encounter
--- OUTSIDE RECORDS SUMMARY | 2022-07-05 02:47 | XMS_ITS | Encounter Summary ---
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 Procedures ID RPR RETINAL DTCHMNT W/VITRECTOMY ANY METH REPAIR, RETINAL DETACHMENT, WITH VITRECTOMY Referral ID Status Reason Start Date Expiration Date Visits Requ ested Visits Authorized [id number] 1 1 Encounter Details Date Type Department Care Team Description 07/11/2021 Anesthesia Event [facility] OR Kylie Montelongo MD [address] [phone] [place] [address] Vaishnavi Tang AA [address] [address] [place], [place] [address] Anesthesia Record Procedure Summary Procedure Name Responsible Anesthesia Start Anesthesia Stop Time Anesthesiologist Time Jayda Peterson Amy S, MD 07/11/21 1439 07/11/21 1722 [place] Vitrectomy, laser , SF6 gas RIGHT EYE (Right: Eye) Events Date Time Event Comment 07/11/2021 1439 An Start The patient was re-evaluated immediately before moderate or deep sedation use, before anesthesia induction, or be fore the anesthesia procedure. 1439 An Start Data 1453 An Induction The patient was reevaluated immediately before moderate or deep sedation use and before anesthesia induction. 1456 An Intubation 1502 Anesthesia Ready 1704 An Extubation 1716 an stop data 1722 Handoff to RN I completed my h [...] for questions and ac knowledgement of understanding. 1722 An Stop Name Total ePHEDrine pre-filled syringe 25 mg fentanyl citrate (PF) injection 100 mcg midazolam (versed) 1 mg/mL 2 mL vial 2 mg ondansetron (PF) (ZOFRAN) injection 4 mg lidocaine 2% (PF) injection glass vial 80 mg propOFol (DIPRIVAN) injection 300 mg rocuronium 10 mg/mL vial 100 mg sugammadex 100 mg/mL 2 mL vial 200 mg phenylephrine pre-made bag 20 mg/250 mL 1,740 mcg acetaminophen 10 mg/ml 100 mL infusion 1,000 mg lactated ringers (LR) infusion 900 mL Agents Name Insp Sevoflurane Exp Sevoflurane O2 N2O Air Blood No blood administrations on file. Lines, Drains, and Airways Type Details Placement Removal Peripheral IV 07/11/21; 1250; 20; 07/11/21 1250 by Mey, 07/11 1808 by Anterior, Right; STUART Wasserman Eric, RN Forearm; 1; None; 07/11/21; 1808 Non-Surgical Airway 07/11/21; 1510 (created 07/11/21 1510 by Joana ricketts, 07/11/21 1704 by via procedure HERIBERTO Flores Laura, CRN A documentation); 07/11/21; 1704 Wound 07/11/21; 1533; 07/11/21 1533 by 10/10/21 0000 b y Incision; Right; Eye; Chai Delgado RN Cardif f, STUART Wasserman microscopic incisions; N; Full thickness; 10/10/21 (cleaning LDA) documented in this encounter Social History Tobacco [...] encounter OR Notes Anesthesia Postprocedure Evaluation - Sandra Forrest CRNA - 07/11/2021 1723 EST Patient: Po Matthews Vital signs were reviewed with the recovery nurse. Complete vitals history is available in the Epic flowsheets. Vitals Value Taken Time BP 119/69 07/11/21 1723 Temp 36.6 07/11/21 1723 Resp 16 07/11/21 1723 Pulse From Oximetry 86 BPM 07/11/21 1722 SpO2 100 % 07/11/21 1722 Vitals shown include unvalidated device data. Last Pain Score - Numeric Pain Level (Scale 1-10): 0 Type of Anesthesia - general Anesthesia Post Evaluation Post-procedure vitals reviewed and are stable. Level of consciousness: awake Temperature status: normothermia and patient returned to pre-procedure baseline Respiratory status: airway patent, stable and face mask Cardiovascular status: stable Hydration status: adequate Nausea/Vomiting: none Pain management: adequate Post-Op Assessment: patient tolerated procedure well with no complications Patient participation: able to participate Disposition: outpatient/home Anesthesia Complications: No apparent anesthesia complications Anesthesia Procedure Notes - Sandra Forrest CRNA - 07/11/2021 1510 ESTAssociated Order(s): Airway Airway Date/Time: 07/11/2021 14:56 Urgency: elective General Information and Staff Patient location during procedure: OR Performed: resident/NOC ENGINEER/AA Indications and Patient Condition Indications for airway management: anesthesia Sedation level: GA Preoxygenated: yes Patient position: sniffing Ventilation assessment: 5 - Two providers required Final Airway Details Final airway type: endotracheal airway Successful airway: ETT Cuffed: yes Successful intubation technique: direct laryngoscopy Facilitating devices/methods: intubating stylet Endotracheal tube insertion site: oral Blade: Debby Blade size: #4 ETT size (mm): 7.5 Cormack-Lehane Classification: grade IIb - view of arytenoids or posterior of glottis only Placement verified by: chest auscultation and capnometry Measured from: lips ETT to lips (cm): 22 Number of attempts at approach: 1 Anesthesia Preprocedure Evaluation - Kylie Montelongo MD - 07/11/2021 0718 EST Anesthesia Preprocedure Evaluation Per Dr Blanchard progress note 07/11/21: driving on Friday when lost vision right eye looking thru glasswith ice on it. Some flashes and lots of floaters. No pain. 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 Patient Medical History, including Anesthesia History reviewed. Chart and Nursing Notes reviewed, including NPO status and Medication History. Additional ROS/History Findings: No Known Allergies Review of Systems Constitutional: Negative for fever. Eyes: Positive for blurred vision. Respiratory: Negative for cough. Cardiovascular: Negative for chest pain. Gastrointestinal: Negative for heartburn. Psychiatric/Behavioral: The patient is not nervous/anxious. All other systems reviewed and are negative. Past Medical History: Diagnosis Date ??? Cancer (HCC-CMS) (HCC) ??? Elevated prostate specific antigen (PSA) ??? Family history of malignant neoplasm of prostate ??? Hypertension ??? Other states following surgery of eye and adnexa Relevant Problems No relevant active problems Physical Exam Airway Mallampati: II TM distance: <3 FB Neck ROM: full Cardiovascular - normal exam Dental - normal exam Pulmonary - normal exam Abdominal (+) obese Anesthesia Plan ASA 2 Anesthesia Type - general Anesthesia plan and risks discussed. Informed consent obtained from patient. Specific risks discussed were dental injury and nausea. Code status discussed? No The preoperative history and physical which was performed within 30 days of this procedure, has beenreviewed and the clinically appropriate elements of the physical examination have been repeated. There are no changes to the documented history and physical or, if so, such changes are documented in this note PAT Note Notes from 06/11/21 through 07/11/21 No notes of this type exist for this encounter. documented in this encounter Plan of Treatment Upcoming Encounters Date Type Specialty Care Team Description 07/12/2022 Post-op Visit Ophthalmology Jacky Blanchard MD [address] [phone] (Wo rk) 07/18/2022 Office Visit Urology Jose Carlos Fisher MD [address] [phone] (Wo rk) documented as of this encounter Procedures Procedure Name Priority Date/Time Associated Comments Diagnosis ANESTHESIA Routine 07/11/2021 14:56 Results for this INTUBATION EST procedure are i n the results section. documented in this encounter Results ID AN ELECTIVE ENDOTRACHEAL AIRWAY (07/11/2021 14:56 EST) Narrative Sandra Forrest CRNA - 07/11/2021 14:56 EST Sandra Forrest CRNA ? 07/11/2021 15:10 Airway Date/Time: 07/11/2021 14:56 Urgency: elective General Information and Staff Patient location during procedure: OR Performed: resident/NOC ENGINEER/AA Indications and Patient Condition Indications for airway management: anest hesia Sedation level: GA Preoxygenated: yes Patient position: sniffing Ventilation assessment: 5 - Two provider s required Final Airway Details Final airway type: endotracheal airway Successful airway: ETT Cuffed: yes Successful intubation technique: direct laryngoscopy Facilitating devices/methods: intubating stylet Endotracheal tube insertion site: oral Blade: Debby Blade size: #4 ETT size (mm): 7.5 Cormack-Lehane Classification: grade IIb - view of arytenoids or posterior of glottis only Placement verified by: chest auscultatio n and capnometry Measured from: lips ETT to lips (cm): 22 Number of attempts at approach: 1 Kylie Montelongo MD ANESTHESIA ORDERABLES documented in this encounter Visit Diagnoses Not on filedocumented in this encounter Administered Medications Inactive Administered Medications - up to 3 most recent administrations Medication Order MAR Action Action Date Dose Rate Site acetaminophen (OFIRMEV) IV Given 07/11/2021 16:09 EST 1,000 mg solution intravenous, PRN, Starting on Fri07/11/21 at 1609, Until Fri07/11/21 at 1722, Routine, Anesthesia Intraprocedure ePHEDrine injection 25 mg/5 mL syringe Given 07/11/2021 16:43 EST 5 mg intravenous, PRN, Starting on Fri07/11/21 at 1543, Until Fri07/11/21 at 1722, Routine, Anesthesia Intraprocedure Given 07/11/2021 16:30 EST 5 mg Given 07/11/2021 15:58 EST 5 mg fentaNYL citrate (PF) injection Given 07/11/2021 14:53 EST 100 mcg intravenous, PRN, Starting on Fri07/11/21 at 1453, Until Fri07/11/21 at 1722, Routine, Anesthesia Intraprocedure lactated ringers (LR) Continued by Anesthesia 07/11/2021 14:39 EST 30 mL/hr infusion 30 mL/hr, intravenous, CONTINUOUS, Starting on Fri07/11/21 at 1245, Until Fri07/11/21 at 2021, Routine, Preprocedure New Bag 07/11/2021 12:56 EST 30 mL/hr 30 mL/hr lidocaine (PF) 20 mg/mL (2 %) injection Given 07/11/2021 14:43 EST 80 mg intravenous, PRN, Starting on Fri07/11/21 at 1443, Until Fri07/11/21 at 1722, Routine, Anesthesia Intraprocedure midazolam (PF) (VERSED) injection Given 07/11/2021 14:43 EST 2 mg intravenous, PRN, Starting on Fri07/11/21 at 1443, Until Fri07/11/21 at 1722, Routine, Anesthesia Intraprocedure ondansetron (PF) (ZOFRAN) injection Given 07/11/2021 16:37 EST 4 mg intravenous, PRN, Starting on Fri07/11/21 at 1637, Until Fri07/11/21 at 1722, Routine, Anesthesia Intraprocedure phenylephrine HCl in 0.9% NaCl New Bag 07/11/2021 15:58 EST 30 mcg/min 22.5 mL/hr (NEO_SYNEPHRINE) 20 mg/250 mL (80 mcg/mL) infusion solution intravenous, FA IP EQF CONTINUOUS PRN FOR ONE STEP MEDS, Starting on Fri07/11/21 at 1558, Until Fri07/11/21 at 1722, Routine, Anesthesia Intraprocedure propOFol (DIPRIVAN) injection Given 07/11/2021 16:56 EST 30 mg intravenous, PRN, Starting on Fri07/11/21 at 1453, Until Fri07/11/21 at 1722, Routine, Anesthesia Intraprocedure Given 07/11/2021 16:20 EST 70 mg Given 07/11/2021 14:53 EST 200 mg rocuronium (ZEMURON) injection Given 07/11/2021 16:20 EST 10 mg intravenous, PRN, Starting on Fri07/11/21 at 1454, Until Fri07/11/21 at 1722, Routine, Anesthesia Intraprocedure Given 07/11/2021 15:52 EST 20 mg Given 07/11/2021 15:17 EST 20 mg sugammadex (BRIDION) injection Given 07/11/2021 16:58 EST 200 mg intravenous, PRN, Starting on Fri07/11/21 at 1658, Until Fri07/11/21 at 1722, Routine, Anesthesia Intraprocedure documented in this encounter Care Teams Puppy Walker Relationship Specialty Start Date End Date Yosi Graham RPA PCP - General 07/05/16 12/17/21 [address] [facility] 1 [place] [address] documented as of this encounter
--- OUTSIDE RECORDS SUMMARY | 2022-07-05 02:47 | XMS_ITS | Encounter Summary ---
:1950 Author Organization [facility] Address [address] [place] [address] Care Team Providers Name Role Phone Yosi Graham EDER Primary Care Provider [phone] Reason for Visit Reason Comments Cataract Encounter Details Date Type Department Care Team Description 10/10/2021 Office Visit [facility] Rodney Sampson Ophthalmology - Tello Clark MD [phone] [place] [address], [facility] [place] [address] (Wo rk) Social History Tobacco [...] documented as of this encounter Progress Notes Rodney Sampson MD - 10/10/2021 0830 EST Department of Ophthalmology / Cataract/Cornea Office Visit Note Referring physician: no referring provider [employer] Licensing Analyst: Family Physician (PCP): Yosi Graham Other Physician: History of Present Illness: This HPI section must be documented by the physician (or scribe upon the dictation of the physician). It should not be documented independently by the certified dialysis technician/scribe in the absence of the physician. Chief Complaint Patient presents with ??? Cataract HPI 71 year old man here at the request of Dr. Blanchard for cataract evaluation for his right eye. He underwent retinal detachment repair for his right eye on 07/11/21, with pars plana vitrectomy, a scleral buckle, retinal laser, SF6, and a subtenons Kenalog injection. 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 He notes that vision in his right eye has become 'much worse' over the last two weeks and he believes he is seeing a 'shadow' temporally that he did not see previously. EXAMINATION: Base Eye Exam Visual Acuity (Snellen - Linear) Right Left Dist cc 20/250 20/25 Correction: Glasses Tonometry (Applanation, 9:17) Right Left Pressure 15 19 Pupils Pupils Dark Light Shape React APD Right PERRL 4 3 Round Brisk None Left PERRL 4 3 Round Brisk None Visual Marcus Right Left Full Restrictions Total superior temporal, inferior temporal deficiencies Extraocular Movement Right Left Full Full Neuro/Psych Oriented x3: Yes Mood/Affect: Normal Dilation Both eyes: Tropicamide 1%, Phenylephrine 2.5% @ 9:18 Slit Lamp and Fundus Exam Slit Lamp Exam Right Left Lids/Lashes Normal Normal Conjunctiva/Sclera White and quiet White and quiet Cornea small subepithelial scar above visual axis , few Guttata few Guttata Anterior Chamber Deep and quiet Deep and quiet Iris 7.1 mm pupil 7.1 mm pupil Lens 2+ Cortical cataract, 4+ Nuclear sclerosis, 3+ Posterior subcapsular cataract, no pseudoexfoliation, no phacodonesis noted 2+ Cortical cataract, 3+ Nuclear sclerosis, no pseudoexfoliation Vitreous Normal Normal Fundus Exam Right Left Disc sloping temporal rim C/D Ratio 0.4 0.5 Macula subretinal fluid Normal Vessels Normal Normal Periphery subretinal fluid superiorly extending to the superior arcades and subretinal fluid inferiorly extending to the inferior arcades Normal Refraction Wearing Rx Sphere Cylinder Linn Add Right +1.00 +1.00 145 +2.50 Left +1.25 +1.75 165 +2.50 Age: 1m Type: PAL OPHTHALMOLOGY TESTING: [To insert test results, first enter the results in Doc Flowsheet and then use dot phrase .OPHTESTEXAM to choose the results module(s) to pull into this note] IMPRESSION / PLAN: Encounter Diagnoses Name Primary? Mixed type age-related cataract, both eyes Yes ??? 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 Blanchard, who has kindly agreed to see the patient today. Will defer cataract evaluation for his right until after his evaluation. Addendum: Dr. Blanchard notes that a recurrent retinal detachment is present in the patient's right eye, and will proceed with retinal detachment repair. Will defer cataract extraction by me (Taco Sampson)for now, but I'd be happy to see him back any time. Scribe Attestation: I am scribing for Rodney Sampson MD while he is personally performing the service. Yessi Rodriguez, COA (Scribe) Time spent: documented in this encounter Plan of Treatment Upcoming Encounters Date Type Specialty Care Team Description 07/12/2022 Post-op Visit Ophthalmology Jacky Blanchard MD [address] [phone] (Wo rk) 07/18/2022 Office Visit Urology Jose Carlos Fisher MD [address] [phone] (Wo rk) documented as of this encounter Visit Diagnoses Diagnosis Mixed type age-related cataract, both ey es - Primary Retinal detachment of right eye with mul tiple retinal tears documented in this encounter Eye Exam Visual Acuity (Snellen - Linear) Right eye Left eye Dist cc 20/250 20/25 Correction: Glasses Tonometry (Applanation, 9:17) Right eye Left eye Pressure 15 19 Pupils Pupils Dark Light Shape React APD Right eye PERRL 4 3 Round Brisk None Left eye PERRL 4 3 Round Brisk None Visual Marcus Right eye Left eye Full Restrictions Total superior temporal, inferior tempor al deficiencies Extraocular Movement Right eye Left eye Full Full Neuro/Psych Oriented x3: Yes Mood/Affect: Normal Dilation Both eyes: Tropicamide 1%, Phenylephrine 2.5% @ 9:18 Slit Lamp Exam Right eye Left eye Lids/Lashes Normal Normal Conjunctiva/Sclera White and quiet White and quiet Cornea small subepithelial scar above few Asim ta visual axis , few Guttata Anterior Chamber Deep and quiet Deep and quiet Iris 7.1 mm pupil 7.1 mm pupil Lens 2+ Cortical cataract, 4+ 2+ Cortical cat aract, 3+ Nuclear Nuclear sclerosis, 3+ Posterior sclerosi s, no pseudoexfoliation subcapsular cataract, no pseudoexfoliation, no phacodonesis noted Vitreous Normal Normal Fundus Exam Right eye Left eye Disc sloping temporal rim C/D Ratio 0.4 0.5 Macula subretinal fluid Normal Vessels Normal Normal Periphery subretinal fluid superiorly extending to the superior arcades and Normal subretinal fluid inferiorly extending to the inferior arcades Wearing Rx Sphere Cylinder Linn Add Right eye +1.00 +1.00 145 +2.50 Left eye +1.25 +1.75 165 +2.50 Age: 1m Type: PAL Care Teams Oral Hygienist Relationship Specialty Start Date End Date Yosi Graham, EDER PCP - General 07/05/16 12/17/[address] [place] [address] documented as of this encounter
--- OUTSIDE RECORDS SUMMARY | 2022-07-05 02:47 | XMS_ITS | Encounter Summary ---
:1950 Author Organization [facility] Address [address] [place] [address] Care Team Providers Name Role Phone Sweetie Gonzales Primary Care Provider Encounter Details Date Type Department Care Team Description 01/02/2022 Orders Only [facility] Jacky Blanchard MD Pre-op testing Ophthalmology - [address] (Prim emir Dx) [address] [place], [place] [id number] [place] [address] [place] [address] (Wo rk) Social History Tobacco [...] 07/12/2022 Post-op Visit Ophthalmology Jacky Blanchard MD [address] [place] [address] 5 [place], [place] [phone] (Wo rk) 07/18/2022 Office Visit Urology Jose Carlos Fisher MD [address] [facility], [address] [place], [place] [phone] (Wo rk) Scheduled Orders Name Type Priority Associated Diagnoses Order S chedule COVID-19 TESTING Microbiology Routine Pre-op testing Expected: 01/18/2022 (Approximate), Expires: 01/02/2023 documented as of this encounter Visit Diagnoses Diagnosis Pre-op testing - Primary Preoperative examination, unspecified documented in this encounter Care Teams Plaster Patternmaker Relationship Specialty Start Date End Date Sweetie Gonzales PCP - General Family Medicine - Primary 12/18/21 04/09/[address] [place] [address] [place] [address] documented as of this encounter
--- OUTSIDE RECORDS SUMMARY | 2022-07-05 02:47 | XMS_ITS | Encounter Summary ---
:1950 Author Organization Health system Address [address] [place] [address] Care Team Providers Name Role Phone Yosi Graham RPA Primary Care Provider [phone] Sweetie Gonzales Primary Care Provider Yosi Graham RPA Primary Care Provider [phone] Reason for Visit Reason Onset Date Comments COVID-19 10/10/2021 Encounter Details Date Type Department Care Team Description 10/10/2021 Telephone [facility] - Jacky Mcbride MD COVID-19 [employer]LIN [employer] [address] [address] Jennifer Valentine [address] [place], [place] [phone] (Wo rk) Social History Tobacco Use Types [...] this encounter Miscellaneous Notes Telephone Encounter - Renate Salcido - 10/10/2021 1044 EST Covid test scheduling received an order for the patient to be tested for covid prior to their upcoming procedure. Covid scheduling received this order on the day of the procedure, the protocol states that we must received the order 5 days in advance to the test date to ensure we can schedule the patient in the correct timeframe. Covid testing should be done at least 3 days prior to make sure results come back in time. We are unable to schedule unless this is considered urgent/emergent. documented in this encounter Plan of Treatment Upcoming Encounters Date Type Specialty Care Team Description 07/12/2022 Post-op Visit Ophthalmology Jacky Blanchard MD [address] [phone] (Wo rk) 07/18/2022 Office Visit Urology Jose Carlos Fisher MD [address] [phone] (Wo rk) documented as of this encounter Visit Diagnoses Not on filedocumented in this encounter Care Teams Auto Damage Trainee Relationship Specialty Start Date End Date Yosi Graham RPA PCP - General 07/05/16 12/17/[address] [phone] Sweeite Gonzales PCP - General Family Medicine - Primary 12/18/21 04/09/[address] [place] [address] [place] [phone] Yosi Graham RPA PCP - General Family Medicine - Primary 04/10/[address] [phone] documented as of this encounter
--- OUTSIDE RECORDS SUMMARY | 2022-07-05 02:47 | XMS_ITS | Encounter Summary ---
:1950 Author Organization [facility] Address [address] [place] [address] Care Team Providers Name Role Phone Janet, Sweetie Primary Care Provider Reason for Visit Auth/Cert Specialty Diagnoses / Procedures Referred By Contact Refer red To Contact Diagnoses Proliferative retinopathy of right eye Procedures NC RPR RETINAL DTCHMNT W/VITRECTOMY ANY METH Vitrectomy, Silicone Oil Removal, Retinectomy, Oil vs Gas, RIGHT EYE Referral ID Status Reason Start Date Expiration Date Visits Requ ested Visits Authorized [id number] 1 1 Encounter Details Date Type Department Care Team Description 01/21/2022 Anesthesia Event [facility] OR Cee Bradford DO [address] [phone] [place] [address] Sandy Baxter AA [address] [phone] [place] [address] Anesthesia Record Procedure Summary Procedure Name Responsible Anesthesia Start Anesthesia Stop Time Anesthesiologist Time Sanchez Johnson Ann Frances 01/21/22 1151 01/21/22 1 309 Silicone Oil DO Trey Removal RIGHT EYE (Right: Eye) Events Date Time Event Comment 01/21/2022 1151 An Start The patient was re-evaluated immediately before moderate or deep sedation use, before anesthesia induction, or be fore the anesthesia procedure. 1151 An Start Data 1156 Anesthesia Ready 1308 Handoff to RN I completed my h [...] for questions and ac knowledgement of understanding. 1309 An Stop 1309 an stop data Name Total propOFol (DIPRIVAN) injection 80 mg lactated ringers (LR) infusion 100 mL Agents Name O2 N2O Air Aux O2 flow Blood No blood administrations on file. Lines, Drains, and Airways Type Details Placement Removal Peripheral IV 01/21/22; 1027; 20; 01/21/22 1027 by Barsalow 1325 by Left, Posterior; - Monica Dunham RN Dixon, Ryan, RN Forearm; Inserted by RN; 1; None; Chlorhexidine; 01/21/22; 1325 Wound 01/21/22; 1227; 01/21/22 1227 by Padilla, 02/10/22 0000 by Incision; Right; Eye; STUART Fowler D eborah, RN Vitrectomy; N; 02/10/22 (UNKNOWN DATE) documented in this encounter Social History Tobacco [...] as of this encounter OR Notes Anesthesia Preprocedure Evaluation - Cee Bradford DO - 01/24/2022 1525 EDT Anesthesia Preprocedure Evaluation Patient Medical History, including Anesthesia History reviewed. Chart and Nursing Notes reviewed, including NPO status and Medication History. Additional ROS/History Findings: No Known Allergies Review of Systems Past Medical History: Diagnosis Date ??? Activity, other involving cardiorespiratory exercise 01/14/22 1-2 FOS without getting SOB ??? 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 Cancer (HCC-CMS) (HCC) prostate per biopsy [...] relevant active problems Physical Exam Airway Mallampati: IV TM distance: <3 FB Neck ROM: limited Cardiovascular Rhythm: regular Rate: normal Dental Pulmonary (+) decreased breath sounds Abdominal (+) obese Other findings: A&O X3 No acetaminophen today 2 handed/jaw thrust mask ventilation for GA for recent GA for vitrectomy. Anesthesia Plan ASA 3 Anesthesia Type - MAC Block for post-op pain? No Anesthesia plan and risks discussed. Informed consent obtained from patient. Specific risks discussed were nausea. Code status discussed? No PAT Note Notes from 12/25/21 through 01/24/22 No notes of this type exist for this encounter. Anesthesia Postprocedure Evaluation - Sandy Jimenez, CHETAN - 01/21/2022 1309 EDT Patient: Po Matthews Vital signs were reviewed with the recovery nurse. Complete vitals history is available in the Epic flowsheets. Vitals Value Taken Time BP 167/97 01/21/22 1307 Temp 36.4 01/21/22 1309 Resp 14 01/21/22 1309 Pulse From Oximetry 64 BPM 01/21/22 1308 SpO2 98 % 01/21/22 1308 Vitals shown include unvalidated device data. Last Pain Score - Numeric Pain Level (Scale 1-10): 0 Type of Anesthesia - general Anesthesia Post Evaluation Post-procedure vitals reviewed and are stable. Level of consciousness: alert and oriented and awake Temperature status: normothermia Respiratory status: airway patent Cardiovascular status: acceptable Hydration status: adequate Nausea/Vomiting: none Pain management: adequate Post-Op Assessment: patient tolerated procedure well with no complications Patient participation: able to participate Disposition: outpatient/home Anesthesia Complications: No apparent anesthesia complications documented in this encounter Plan of Treatment Upcoming Encounters Date Type Specialty Care Team Description 07/12/2022 Post-op Visit Ophthalmology Jacky Blanchard MD [address] [place] [phone] (Wo rk) 07/18/2022 Office Visit Urology Jose Carlos Fisher MD [address] [phone] (Wo rk) documented as of this encounter Visit Diagnoses Not on filedocumented in this encounter Administered Medications Inactive Administered Medications - up to 3 most recent administrations Medication Order MAR Action Action Date Dose Rate Site lactated ringers (LR) Continued by Anesthesia 01/21/2022 11:51 30 mL/hr infusion EDT 30 mL/hr, intravenous, CONTINUOUS, Starting on Fri01/21/22 at 1045, Until Fri01/21/22 at 1544, Routine, Preprocedure New Bag 01/21/2022 10:27 EDT 30 mL/hr 30 mL/hr propOFol (DIPRIVAN) injection Given 01/21/2022 11:57 EDT 30 mg intravenous, PRN, Starting on Fri01/21/22 at 1156, Until Fri01/21/22 at 1309, Routine, Anesthesia Intraprocedure Given 01/21/2022 11:56 EDT 50 mg documented in this encounter Care Teams Ticket Sales Agent Relationship Specialty Start Date End Date Sweetie Gonzales PCP - General Family Medicine - Primary 12/18/21 04/09/22 [address] [facility] [place] [phone] documented as of this encounter
--- OUTSIDE RECORDS SUMMARY | 2022-07-05 02:47 | XMS_ITS | Encounter Summary ---
:[address] [facility] Address [address] [place] [address] Care Team Providers Name Role Phone Yosi Graham EDER Primary Care Provider [phone] Reason for Visit Reason Comments Post-OP Follow Up Encounter Details Date Type Department Care Team Description 10/19/2021 Office Visit [facility] Jacky Blanchard MD Ophthalmology - [address], [address], [address] [place], [place] [address] [place] [address] [phone] (Wo rk) Social History Tobacco Use [...] encounter Progress Notes Jacky Blanchard MD - 10/19/2021 0900 EDT Chief Complaint Patient presents with ??? Post-OP Follow Up Comments S/P RD repair, PPV, Laser right eye 10/10/21. Blurred vision in the right eye. No flashing lights, floating spots, diplopia, or eye pain. Vigamox 4/-, PF 4/-. HPI Location: Right eye Pain: 0 - No pain Quality: Severity: Mild Duration: Weeks Timing: Constant Lasts: Continuous Context: S/P RD repair, PPV, Laser right eye 10/10/21. Modifying factors: Associated Signs & Symptoms: Visual Fluctuations: None Attestation: Base Eye Exam Visual Acuity (Snellen - Linear) Right Left Dist cc 20/400 20/25 -2 Dist ph cc 20/150 Correction: Glasses Tonometry (Applanation, 9:15) Right Left Pressure 18 17 Pupils Dark APD Right 6 None Left 4 None Neuro/Psych Oriented x3: Yes Mood/Affect: Normal Dilation Right eye: Phenylephrine 2.5%, Tropicamide 1% @ 9:15 Slit Lamp and Fundus Exam Slit Lamp Exam Right Left Lids/Lashes Normal Normal Conjunctiva/Sclera White and quiet White and quiet Cornea Clear Clear Anterior Chamber Deep and quiet Deep and quiet Iris Dilated dilated Lens 2+ Posterior subcapsular cataract, 1+ Nuclear sclerosis 1+ Cortical cataract Vitreous >90% silicone oil clear Fundus Exam Right Left Disc Healthy Rim Healthy Rim C/D Ratio 0.3 Macula flat Normal Vessels Normal Normal Periphery > 9 clock hours of PVR-TRD over SB anterior to 360 laser barricade; PVR @ 3 posterior to buckle barricaded with laser attached no predisposing lesion Please refer to large retinal drawing. IMAGING: DIAGNOSES: 1. Proliferative vitreoretinopathy of right eye Assessment > 9 clock hours of PVR-TRD over SB anterior to 360 laser barricade s/p 10/10/2021 PPV, EL, SO for recurrent retinal detachment?? s/p12/??SB,PPV,EL,SF6, STK for VH and RD/RT Sleep on right or left side, no sleeping on back. Can stop Face down positioning Continue PF QID right eye Stop moxifloxacin Discussed need for sequential CE+IOL, SO exchange with retinectomy and eventually SOR. Return in 3 weeks I have reviewed the past medical, [...] Visit Ophthalmology Jacky Blanchard MD [address] [phone] (Wo rk) 07/18/2022 Office Visit Urology Jose Carlos Fisher MD [address] [phone] (Wo rk) documented as of this encounter Visit Diagnoses Diagnosis Proliferative vitreoretinopathy of right eye - Primary Other nondiabetic proliferative retinopa thy documented in this encounter Eye Exam Visual Acuity (Snellen - Linear) Right eye Left eye Dist cc 20/400 20/25 -2 Dist ph cc 20/150 Correction: Glasses Tonometry (Applanation, 9:15) Right eye Left eye Pressure 18 17 Pupils Dark APD Right eye 6 None Left eye 4 None Neuro/Psych Oriented x3: Yes Mood/Affect: Normal Dilation Right eye: Phenylephrine 2.5%, Tropicami de 1% @ 9:15 Slit Lamp Exam Right eye Left eye Lids/Lashes Normal Normal Conjunctiva/Sclera White and quiet White and quiet Cornea Clear Clear Anterior Chamber Deep and quiet Deep and quiet Iris Dilated dilated Lens 2+ Posterior subcapsular cataract, 1+ Nu clear 1+ Cortical cataract sclerosis Vitreous >90% silicone oil clear Fundus Exam Right eye Left eye Disc Healthy Rim Healthy Rim C/D Ratio 0.3 Macula flat Normal Vessels Normal Normal Periphery > 9 clock hours of PVR-TRD over SB attac hed no predisposing lesion anterior to 360 laser barricade; PVR @ 3 posterior to buckle barricaded with lase r Care Teams Communications Controller Relationship Specialty Start Date End Date Yosi Graham RPA PCP - General 07/05/16 12/17/21 [address] [facility] [address] [place] [address] documented as of this encounter
--- OUTSIDE RECORDS SUMMARY | 2022-07-05 02:47 | XMS_ITS | Encounter Summary ---
:[address] [facility] Address [address] [place] [address] Care Team Providers Name Role Phone Janet Sweetie Primary Care Provider Reason for Visit Auth/Cert Specialty Diagnoses / Procedures Referred By Contact Refer red To Contact Diagnoses Proliferative retinopathy of right eye Procedures MT RPR RETINAL DTCHMNT W/VITRECTOMY ANY METH Vitrectomy, Silicone Oil Removal, Retinectomy, Oil vs Gas, RIGHT EYE Referral ID Status Reason Start Date Expiration Date Visits Requ ested Visits Authorized [id number] 1 1 Encounter Details Date Type Department Care Team Description 01/21/2022 Surgery [facility] OR Jacky Blanchard MD Vitrectomy, Silicone [address] [facility] Oil Removal RIGHT EYE [place], [place] [phone] [place] [address] [[id number] (CPT??)] [phone] [facility] [address] [place] [phone] (Wo rk) Surgery Details Date/Time Status Location OR Service Patient Class Case Class Case Trauma Type Case? 01/21/22 1120 Posted [facility] OR [facility] 02 [facility] - Outpatient Elective Surgery Panel 1 Procedure LRB Anes Op Region Wound Class Commen ts Vitrectomy, Silicone Right Monitor Anesthesia Care Eye Cl ass I/ Clean Oil Removal RIGHT EYE Surgeon Surgeon Role Service Panel [...] 01/21/2022 09 EDT Body Mass Index 33.53 01/21/2022918 EDT documented in this encounter Functional Status [...] - AVS First PageJacky Blanchard MD - 01/21/2022 13:18 EDT Keep patch [...] Code Departure Means Destination Home or Self Intermediate documented in this encounter H&P Notes Jacky Blanchard MD - 01/21/2022 0840 EDT In reviewing the chart, I see Po A Byron had a Pre-surgical History & Physical completed within the last 30 days. The following is a copy of that H&P note from the encounter associated with the physical. The note has been copied for review and update purposes within the scheduled perioperative encounter. Jacky Blanchard MD 01/21/2022 8:40 documented in this encounter Procedure Notes Jacky Blanchard MD - 01/21/2022 1320 EDTProcedure(s): MT VITRECTOMY,MECHANICAL Pre-Procedure Diagnose(s): Proliferative vitreoretinopathy of right eye; Pseudophakia Surgery date: 01/21/2022 Pre-operative diagnosis: Proliferative vitreoretinopathy, pseudophakia right eye S/p 12/24/2021 CE+IOL s/p 10/10/2021 PPV, EL, SO for recurrent retinal detachment?? s/p12/03/2021??SB, PPV, EL, SF6, STK for VH and [...] Post-op Visit Ophthalmology Jacky Blanchard MD [address] [phone] (Wo rk) 07/18/2022 Office Visit Urology Jose Carlos Fisher MD [address] [phone] (Wo rk) documented as of this encounter Procedures Procedure Name Priority Date/Time Associated Diagnosis Comme nts REPAIR, RETINAL 01/21/2022 11:41 EDT Proliferative DETACHMENT, WITH retinopathy of right eye VITRECTOMY documented in this encounter Visit Diagnoses Diagnosis Proliferative vitreoretinopathy of right eye - Primary Other nondiabetic proliferative retinopa thy Proliferative retinopathy of right eye documented in this encounter Administered Medications Inactive Administered Medications - up to 3 most recent administrations Medication Order MAR Action Action Date Dose Rate Site acetaminophen (TYLENOL) solution unit do se cup 995 mg 995 mg (rounded from 1,000 mg), oral, MT N, 1 dose, Starting on Fri01/21/22 at [...] Recovery (only) balanced salt solution inrrigation Given 01/21/2022 12:19 EDT 50 0 mL Right Eye solution (BSS PLUS) 500 mL, EPINEPHrine HCl (PF) (ADRENALIN) 0.5 mL irrigation PRN, Starting on Fri01/21/22 at 1219, Until Fri01/21/22 at 1305, Routine, Intraprocedure balanced salts (BSS) ophthalmic solution Given 01/21/2022 12:18 EDT 15 mL Right E ye PRN, Starting on Fri01/21/22 at 1218, Until Fri01/21/22 at 1305, Routine, Intraprocedure chondroitin-sodium hyaluronate Given 01/21/2022 12:18 EDT 1 Each Right Eye (VISCOAT) ophthalmic solution PRN, Starting on Fri01/21/22 at 1218, Until Fri01/21/22 at 1305, Routine, Intraprocedure cyclopentolate (CYCLOGYL) 1 % ophthalmic Given 01/21/2022 [...] Until Fri01/21/22 at 1544, Routine, Recovery (only) lidocaine 20 mg/mL (2 %) 5 mL, Given 01/21/2022 12:00 EDT 6 mL Right Eye bupivacaine (PF) (MARCAINE) 0.75 % (7.5 mg/mL) 5 mL PRN, Starting on Fri01/21/22 at 1200, Until Fri01/21/22 at 1305, Routine, Intraprocedure methylPREDNISolone sod suc(PF) (SOLU-MEDROL) Given 01/21/2022 12 :52 EDT 20 mg injection PRN, Starting on Fri01/21/22 at 1252, Until Fri01/21/22 at 1305, Routine, Intraprocedure naloxone (NARCAN) injection 0.2 mg 0.2 mg, intravenous, PRN, Starting on Fri01/21/22 at 1 253, Until Fri01/21/22 at 1544, Opioid Reversal, Routine, Recovery (only) [id number]-vblfjojtg-nqctvawiexaeo (MAXITROL) Given 01/21/2022 12: 52 EDT 0.5 mL ophthalmic ointment PRN, Starting on Fri01/21/22 at 1252, Until Fri01/21/22 at 1305, Intraprocedure phenylephrine (MYDFRIN) 2.5 % ophthalmic Given 01/21/2022 10:52 EDT 1 Drop solution 1 Drop 1 Drop, right eye, PRE-OP Q 5 MINUTES, 3 doses, Starting on Fri01/21/22 at 1041, Until Fri01/21/22 at 1052, vitreoretinal surgery, Routine, Preprocedure Given 01/21/2022 10:47 EDT 1 Drop Given 01/21/2022 10:42 EDT 1 Drop sterile water (PF) 2.5 mL with ceFAZolin Given 01/21/2022 12:24 EDT 0.3 mL (ANCEF) 1 g PRN, Starting on Fri01/21/22 at 1224, Until Fri01/21/22 at 1305, Routine, Intraprocedure documented in this encounter Discontinued Medications Medication Sig Discontinue Reason Start Date End Date prednisoLONE (PRED Place 1 Drop into 12/24/202101/03 FORTE) 1 % ophthalmic the right eye [...] CHETAN Werner)1308 (Anesthesia Volume Adjustment - Provider: CHETAN Werner) at 30 mL/hr, 30 mL/hr, intravenous, [...] 995 mg (rounded from 1,000 mg), oral, MT N, 1 dose, Starting on Fri01/21/22 at [...] BSS part 2 lot [id number] Epi lot [id number]) PRN, Starting on Fri01/21/22 at 1219, Un til 01/21/22 at 1305, Routine, Intraprocedure balanced salts (BSS) ophthalmic solution (CANCELED) 1218 (Given - Provider: Jacky Blanchard MD - Comment: topical) PRN, Starting on Fri01/21/22 at 1218, Un til 01/21/22 at 1305, Routine, Intraprocedure chondroitin-sodium hyaluronate (VISCOAT) ophthalmic solution (CA NCELED) 1218 (Given - Provider: Jacky Blanchard MD - Comment: topical lot [id number]) PRN, Starting on Fri01/21/22 at 1218, Un til 01/21/22 at 1305, Routine, Intraprocedure cyclopentolate (CYCLOGYL) 1 % ophthalmic solution 1 Drop (COMPLE WYATT) 1041 (Given - Provider: Monica Dunham RN)1046 (Given - Provider: Monica Dunham, RN)1051 (Given - Provider: Monica Dunham RN) 1 Drop, right eye, PRE-OP Q 5 MINUTES, 3 doses, Starting on 01/21/22 at 1041, Until Discontinued, Other, Routine, Preprocedure lidocaine 20 mg/mL (2 %) 5 mL, bupivacai ne (PF) (MARCAINE) 0.75 % (7.5 mg/mL) 5 mL (CANCELED) 1200 (Given - Provid er: Jacky Blanchard MD - Comment: Lidocaine 2% [id number] Bupivacaine 0.75% [id number]) PRN, Starting on Fri01/21/22 at 1200, Un til 01/21/22 at 1305, Routine, Intraprocedure methylPREDNISolone sod suc(PF) (SOLU-MEDROL) injection (CANCELED ) 1252 (Given - Provider: Jacky Blanchard MD - Comment: [id number]) PRN, Starting on Fri01/21/22 at 1252, Un til Fri01/21/22 at 1305, Routine, Intraprocedure naloxone (NARCAN) injection 0.2 mg 0.2 mg, intravenous, PRN, Starting on Mo n 01/21/22 at 1253, Until Fri01/21/22 at 1544, Opioid Reversal, Routine, Recovery (only) shxehmdj-nzyepctuq-yubojmwteoerx (MAXITROL) ophthalmic ointment (CANCELED) 1252 (Given - Provider: Jacky Blanchard MD - Comment: [id number]) PRN, Starting on Fri01/21/22 at 1252, Until Fri 2 at 1305, Intraprocedure phenylephrine (MYDFRIN) 2.5 % ophthalmic solution 1 Drop (COMPLE WYATT) 1042 (Given - Provider: Monica Dunham RN)1047 (Given - Provider: Monica Dunham RN)1052 (Given - Provider: Dianne Barsalow - Dunham, RN) 1 Drop, right eye, PRE-OP Q 5 MINUTES, 3 doses, Starting on Fri01/21/22 at 1041, Until Discontinued, vitreoretinal surgery, Routine, Preprocedure sterile water (PF) 2.5 mL with ceFAZolin (ANCEF) 1 g (CANCELED) 1224 (Given - Provider: Jacky Blanchard MD - Comment: Ancef [id number] Sterile water [id number]) PRN, Starting on Fri01/21/22 at 1224, Un til Fri01/21/22 at 1305, Routine, Intraprocedure Linked Groups Order Group 1: acetaminophen (TYLENOL) solution unit dose cup 995 mgJump to med 995 mg (rounded from 1,000 mg), oral, MT N, 1 dose, Starting on Fri01/21/22 at [...] Administered acetaminophen (TYLENOL) solution unit dose 1 01/21 cup 995 mg acetaminophen (TYLENOL) tablet 1,000 mg 1 01/22/20 atropine 0.1 mg/mL syringe 0.5 mg 1 01/21/2022 lactated ringers (LR) infusion 1 01/21/2022 lidocaine (PF) 10 mg/mL (1 %) injection 2 1 2021 mg naloxone (NARCAN) injection 0.2 mg 1 01/21/2022 Discharge Count Last Ordered Date First Ordered Date DISCHARGE PATIENT 1 01/21/2022 documented in this encounter Care Teams Institutional Cook Relationship Specialty Start Date End Date Sweetie Gonzales PCP - General Family Medicine - Primary 12/18/21 04/09/[address] [place] [address] [place] [phone] documented as of this encounter
--- OUTSIDE RECORDS SUMMARY | 2022-07-05 02:47 | XMS_ITS | Encounter Summary ---
:1950 Author Organization [facility] Address [address] [place] [address] Care Team Providers Name Role Phone Yosi Graham [facility] Primary Care Provider [phone] Reason for Visit 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 Procedures NV RPR RETINAL DTCHMNT W/VITRECTOMY ANY METH Vitrectomy, Possible Lensectomy, Laser, Oil, RIGHT EYE Referral ID Status Reason Start Date Expiration Date Visits Requ ested Visits Authorized [id number] 08/03/2022 1 1 Encounter Details Date Type Department Care Team Description 10/10/2021 Surgery [facility] OR Jacky Blanchard MD Vitrectomy, Laser, 111 [facility] e 111 [facility] Oil, RIGHT EYE [[id number] [place], [place] [id number] [place] [address] (CPT??)] [phone] [address] [place] [address] (Wo rk) Surgery Details Date/Time Status Location OR Service Patient Class Case Case Trauma Class Type Case? 10/10/21 1525 Posted [facility] OR [facility] E - Less Outpatient than 12 Surgery hours Panel 1 Procedure LRB Anes Op Region Wound Class Commen ts Vitrectomy, Laser, Right Monitor Anesthesia Care Eye Clas s I/ Clean Oil, RIGHT EYE Surgeon Surgeon Role Service Panel Jacky Blanchard MD Primary Ophthalmology 1 Special Needs fragmatome, soft tip, endolaser, silicon e oil documented in this encounter Social History Tobacco Use Types Packs/Day Years Used Date Smoking Tobacco: Never Smokeless Tobacco: Never Alcohol Use Standard Drinks/Week Comments Yes 3 (1 standard drink = 0.6 oz pure alcoho l) Sex Assigned at Date Recorded Not on file documented as of this encounter Last Filed Vital Signs Vital Sign Reading Time Taken Comments Blood Pressure 144/87 10/10/2021 1800 EST Pulse - - Temperature 36.3 ??C (97.3 ??F) 10/10/2021 1800 EST Respiratory Rate 12 10/10/2021 1718 EST Oxygen Saturation 97% 10/10/2021 1800 EST Inhaled Oxygen Concentration - - Weight 97.3 kg (214 lb 8.1 oz) 10/10/2021 1327 EST Height 167.6 cm (5' 6) 10/10/2021 1327 EST Body Mass Index 34.62 10/10/2021 1327 EST documented in this encounter Functional Status [...] - AVS First Jacky Kilpatrick MD - 10/10/2021 17:13 EST Please position face down 40 minutes out of every waking hour for 7 days. Sleep face down or right ear down for 7 days. Keep patch on the eye until tomorrow's 2 PM follow-up appointment. 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 Surgery: Pars plana vitrectomy, fluid-air exchange, endolaser, 1000 CS silicone oil right eye Surgeon: Jacky Blanchard MD Anesthesia: Local RB with sedation Findings: Proliferative vitreoretinopathy over buckle inferonasal quadrant and possibly posterior tobuckle at 3 o'clock. Technique: Patient was identified in the [...] a lid speculum. Three trocars were inserted 4.0 mm from the limbus, one in the inferotemporal quadrant, one in the superotemporal quadrant, and one in the superonasal quadrant. The infusion port was placed through theinferotemporal trocar and visualized in the vitreous cavity prior to starting the infusion. There were no problems with the cannula placements. Core vitrectomy was performed during previous surgery. Little residual vitreous was left to be shaved peripherally. Careful examination of the retina through the Resight wide angle lens, using scleral indentation, revealed a total retinal detachment sparing the retinal tears surrounded by laser scars in the temporal and superior quadrants.No causative breaks were identified. A draining retinotomy wasperformed with endodiathermy nasal to the optic nerve and the subretinal fluid drained with fluid-air exchange. This obtained retinal re- attachement and revealed a patch of whitening or vitreoretinopathy posterior to the buckle at 3 o'clock as well as thickened retina with vitreoretinopathy overlying the buckle in the inferonasal quadrant. Endolaser was applied around the retinotomy, around the patchof nasal whitening and over the buckle and area of PVR in the inferonasal quadrant. A light laser barricade was added posterior to the margin of the existing one in the temporal and superior quadrants. Air was exchanged for 1000 CS silicone oil, injected through one of the cannulas in the vitreous cavity. All 3 cannulas were removed, and each of the sclerotomies was closed using 7-0 vicryl. Intraocular pressure was ensured to be physiologic. Solumedrol and Ancef solutions were injected subconjunctivally. The lid speculum was removed, Maxitrol ointment was placed onto the eye. A patch and shield were placed for protection. The patient tolerated the procedure well without complication. Estimated Blood Loss Minimal. Total IV Fluids Per anesthesia documentation. Specimen(s) None. Complications None. documented in this encounter Nursing Notes Shauna Bowman RN - 10/10/2021 1530 EST Per pt request , his brother was called and notified that po went to procedure. number to reach him at for brick [employer] is [phone]- coming from [facility] Elsa Miles RN - 10/10/2021 1441 EST Preop Covid DOS screening questionnaire Please [...] or home test? no Were you covid tested? Add on/ N/A When: Results: Vaccinated: YES See admission vital signs documentation for admission temperature. documented in this encounter Plan of Treatment Upcoming Encounters Date Type Specialty Care Team Description 07/12/2022 Post-op Visit Ophthalmology Jacky Blanchard MD [address] [phone] (Wo rk) 07/18/2022 Office Visit Urology Jose Carlos Fisher MD [address] [phone] (Wo rk) documented as of this encounter Procedures Procedure Name Priority Date/Time Associated Diagnosis Comme nts REPAIR, RETINAL 10/10/2021 15:20 EST Retinal detachmen t of DETACHMENT, WITH right eye with multiple VITRECTOMY retinal tears Special Needs fragmatome, soft tip, endola ser, silicone oil documented in this encounter Visit Diagnoses Diagnosis [...] mg 0.5 mg, intravenous, PRN, Starting on 10/10/21 at 1710, Until Fri10/10/21 at 2026, Symptomatic HR < 50, Routine, Recovery (only) balanced salt solution inrrigation Given 10/10/2021 16:07 EST 50 0 mL Right Eye solution (BSS PLUS) 500 mL, EPINEPHrine HCl (PF) (ADRENALIN) 0.5 mL irrigation PRN, Starting on Fri10/10/21 at 1607, Until Fri10/10/21 at 1715, Routine, Intraprocedure balanced salts (BSS) ophthalmic solution Given 10/10/2021 16:07 EST 15 mL Right E ye PRN, Starting on Fri10/10/21 at 1607, Until Fri10/10/21 at 1715, Routine, Intraprocedure chondroitin-sodium hyaluronate Given 10/10/2021 16:08 EST 1 Each Right Eye (VISCOAT) ophthalmic solution PRN, Starting on Fri10/10/21 at 1608, Until Fri10/10/21 at 1715, Routine, Intraprocedure cyclopentolate (CYCLOGYL) 1 % ophthalmic Given 10/10/2021 14:53 EST 1 Drop solution 1 Drop 1 Drop, right eye, PRE-OP Q 5 MINUTES, 3 doses, Starting on Fri10/10/21 at 1321, Until Fri10/10/21 at 1453, Other, Routine, Preprocedure Given 10/10/2021 14:48 EST 1 Drop Given 10/10/2021 14:43 EST 1 Drop fentaNYL citrate (PF) injection 25-50 mc g 25-50 mcg, intravenous, EVERY 5 MIN PRN, Starting on Fri10/10/21 at 1710, Until Fri10/10/21 at 2026, Pain, Routine, Recovery (only) lactated ringers (LR) Continued by Anesthesia 10/10/2021 15:35 EST 30 mL/hr infusion 30 mL/hr, intravenous, CONTINUOUS, Starting on Fri10/10/21 at 1345, Until Fri10/10/21 at 2026, Routine, Preprocedure Restarted 10/10/2021 15:34 EST New Bag 10/10/2021 15:04 EST 30 mL/hr 30 mL/hr lactated ringers (LR) infusion at 75 mL/hr, intravenous, PACU CONTINUOU S, Starting on Fri10/10/21 at 1730, Until Fri10/10/21 at 2026, Routine, Recovery (only) lidocaine 20 mg/mL (2 %) 5 mL, Given 10/10/2021 16:58 EST 5 mL Right Eye bupivacaine (PF) (MARCAINE) 0.75 % (7.5 mg/mL) 5 mL PRN, Starting on Fri10/10/21 at 1658, Until Fri10/10/21 at 1715, Routine, Intraprocedure methylPREDNISolone sod suc(PF) Given 10/10/2021 16:51 EST 10 mg Right Eye (SOLU-MEDROL) injection PRN, Starting on Fri10/10/21 at 1651, Until Fri10/10/21 at 1715, Routine, Intraprocedure naloxone (NARCAN) injection 0.2 mg 0.2 mg, intravenous, PRN, Starting on 10/10/21 at 1710, Until Fri10/10/21 at 2026, Opioid Reversal, Routine, Recovery (only) cczxhcmg-ekzhcpvwa-ifzgkuihricgb Given 10/10/2021 16:52 EST 1 mL Right Eye (MAXITROL) ophthalmic ointment PRN, Starting on Fri10/10/21 at 1652, Until Fri10/10/21 at 1715, Intraprocedure ondansetron (PF) (ZOFRAN) injection 4 mg 4 mg, intravenous, PRN, 1 dose, Starting on Fri10/10/21 at 1710, Until Fri10/10/21 at 2026, Nausea, Vomiting, Routine, Recovery (only) phenylephrine (MYDFRIN) 2.5 % ophthalmic Given 10/10/2021 14:54 EST 1 Drop solution 1 Drop 1 Drop, right eye, PRE-OP Q 5 MINUTES, 3 doses, Starting on Fri10/10/21 at 1321, Until Fri10/10/21 at 1454, vitreoretinal surgery, Routine, Preprocedure Given 10/10/2021 14:49 EST 1 Drop Given 10/10/2021 14:44 EST 1 Drop sterile water (PF) 2.5 mL with Given 10/10/2021 16:50 EST 0.3 mL Right Eye ceFAZolin (ANCEF) 1 g PRN, Starting on Fri10/10/21 at 1650, Until Fri10/10/21 at 1715, Routine, Intraprocedure documented in this encounter Discontinued Medications Medication Sig Discontinue Reason Start Date End Date sildenafil citrate Take 1 Tab by mouth 06/23/2018 (VIAGRA) 100 mg tablet as needed for Erectile Dysfunction. pravastatin (PRAVACHOL) Take 10 mg by mouth 10/10/2021 10 mg tablet daily. prednisoLONE (PRED Place 1 Drop into 07/13/2021 03/0 04/2022 FORTE) 1 % ophthalmic the right eye 4 suspension times daily. ofloxacin (OCUFLOX) 0.3 Place 1 Drop into 07/13/2021 10/10/2021 % ophthalmic solution the right eye 4 times daily. documented as of this encounter Active and Recently Administered Medications Times are shown in EST. Continuous Medication Order 10/08/2021 10/09/2021 10/10/2021 lactated ringers (LR) infusion 1 504 (New Bag - Provider: Shauna Bowman RN)1533 (Paused - Provider: Mayank Monterroso CRNA - Comment: Switch to gravity)1534 (Restarted - Provider: Mayank Monterroso CRNA)1535 (Continued by Anesthesia - Provider: Mayank Monterroso CRNA) at 30 mL/hr, 30 mL/hr, intravenous, CONT INUOUS, Starting on Fri10/10/21 at 1345, Until Fri10/10/21 at 2026, Routine, Preprocedure 1718 (Anesthesia Volume Adjustment - Provider: Dejuan Sifuentes MD) lactated ringers (LR) infusion 1 730 (Canceled Entry - Provider: Mahesh Job User Admin - Comment: Automatically canceled at discontinue of medication order) at 75 mL/hr, intravenous, PACU CONTINUOU S, Starting on Fri10/10/21 at 1730, Until Fri10/10/21 at 2026, Routine, Recovery (only) PRN Medication Order 10/08/2021 10/09/2021 10/10/2021 atropine 0.1 mg/mL syringe 0.5 mg 0.5 mg, intravenous, PRN, Starting on We 10/10/21 at 1710, Until Fri10/10/21 at 2026, Symptomatic HR < 50, Routine, Recovery (only) balanced salt solution inrrigation solut ion (BSS PLUS) 500 mL, EPINEPHrine HCl (PF) (ADRENALIN) 0.5 mL irrigation (CANCELED) 1607 (Given - Provider: Jacky Blanchard MD - Comment: BSS I: #[id number] BSS II: #[id number] EPI: #[id number]) PRN, Starting on Fri10/10/21 at 1607, Unt il Fri10/10/21 at 1715, Routine, Intraprocedure balanced salts (BSS) ophthalmic solution (CANCELED) 1607 (Given - Provider: Jacky Blanchard MD - Comment: irrigation) PRN, Starting on Fri10/10/21 at 1607, Unt il Fri10/10/21 at 1715, Routine, Intraprocedure chondroitin-sodium hyaluronate (VISCOAT) ophthalmic solution (CA NCELED) 1608 (Given - Provider: Jacky Blanchard MD - Comment: #[id number]) PRN, Starting on Fri10/10/21 at 1608, Unt il Fri10/10/21 at 1715, Routine, Intraprocedure cyclopentolate (CYCLOGYL) 1 % ophthalmic solution 1 Drop (COMPLE WYATT) 1443 (Given - Provider: Elsa Miles, STUART)1448 (Given - Provider: Elsa Miles RN)1453 (Given - Provider: Elsa Miles RN) 1 Drop, right eye, PRE-OP Q 5 MINUTES, 3 doses, Starting on Fri10/10/21 at 1321, Until Fri10/10/21 at 1453, Other, Routine, Preprocedure fentaNYL citrate (PF) injection 25-50 mcg 25-50 mcg, intravenous, EVERY 5 MIN PRN, Starting on Fri10/10/21 at 1710, Until Fri10/10/21 at 2027, Pain, Routine, Recovery (only) lidocaine 20 mg/mL (2 %) 5 mL, bupivacai ne (PF) (MARCAINE) 0.75 % (7.5 mg/mL) 5 mL (CANCELED) 165 (Given - Provid er: Jacky Blanchard MD - Comment: 0.75% Marcaine: #[id number] 2% Lidocaine: #[id number]) PRN, Starting on Fri10/10/21 at 1658, Unt il Fri10/10/21 at 1715, Routine, Intraprocedure methylPREDNISolone sod suc(PF) (SOLU-MEDROL) injection (CANCELED ) 165 (Given - Provider: Jacky Blanchard MD - Comment: #[id number]) PRN, Starting on Fri10/10/21 at 1651, Unt il Fri10/10/21 at 1715, Routine, Intraprocedure naloxone (NARCAN) injection 0.2 mg 0.2 mg, intravenous, PRN, Starting on 10/10/21 at 1710, Until Fri10/10/21 at 2026, Opioid Reversal, Routine, Recovery (only) ymlnkucz-zbjzoltyp-zsgflqxfizpvq (MAXITROL) ophthalmic ointment (CANCELED) 1652 (Given - Provider: Jacky Blanchard MD) PRN, Starting on Fri10/10/21 at 1652, Until Fri10/10/21 at 1715, I ntraprocedure ondansetron (PF) (ZOFRAN) injection 4 mg 4 mg, intravenous, PRN, 1 dose, Starting on Fri10/10/21 at 1710, Until Fri10/10/21 at 2026, Nausea, Vomiting, Routine, Recovery (only) phenylephrine (MYDFRIN) 2.5 % ophthalmic solution 1 Drop (COMPLE WYATT) 1444 (Given - Provider: Elsa Miles RN)1449 (Given - Provider: Elsa Miles RN)1454 (Given - Provider: Elsa Miles RN) 1 Drop, right eye, PRE-OP Q 5 MINUTES, 3 doses, Starting on Fri10/10/21 at 1321, Until Fri10/10/21 at 1454, vitreoretinal surgery, Routine, Preprocedure sterile water (PF) 2.5 mL with ceFAZolin (ANCEF) 1 g (CANCELED) 1650 (Given - Provider: Jacky Blanchard MD - Comment: Cefazolin: #[id number] Sterile Water: #[id number]) PRN, Starting on Fri10/10/21 at 1650, Unt il Fri10/10/21 at 1715, Routine, Intraprocedure documented in this encounter Orders Medications Ordered That Might Not Have Count Last Ord ered Date First Ordered Date Been Administered atropine 0.1 mg/mL syringe 0.5 mg 1 10/10/2021 fentaNYL citrate (PF) injection 25-50 mcg 1 2021 lactated ringers (LR) infusion 1 10/10/2021 lidocaine (PF) 10 mg/mL (1 %) injection 2 1 2021 mg naloxone (NARCAN) injection 0.2 mg 1 10/10/2021 ondansetron (PF) (ZOFRAN) injection 4 mg 1 022 Nursing Count Last Ordered Date First Ordered Date NURSING COMMUNICATION 5 10/10/2021 Discharge Count Last Ordered Date First Ordered Date DISCHARGE PATIENT 1 10/10/2021 documented in this encounter Care Teams Facility Practice Specialist Relationship Specialty Start Date End Date Yosi Graham RPA PCP - General 07/05/16 12/17/[address] [address] documented as of this encounter
--- OUTSIDE RECORDS SUMMARY | 2022-07-05 02:47 | XMS_ITS | Encounter Summary ---
:1950 Author Organization [facility] Address [address] [place] [address] Care Team Providers Name Role Phone Janet Sweetie Primary Care Provider Reason for Visit Reason Comments Post-OP Follow Up Encounter Details Date Type Department Care Team Description 01/22/2022 Post-op Visit [facility] Jacky Blanchard MD Retinal detachment Ophthalmology - Main [address] [place] [address] multiple retinal 111 [facility] (Primary Dx) [place] [address] [address], [place] [phone] (Wo rk) Social History Tobacco Use Types [...] Sig Dispensed Refills Start Date End Date prednisoLONE (PRED FORTE) Place 1 Drop into 10 mL 2 02/11/2022 1 % ophthalmic suspension the right eye 4 times daily. ofloxacin (OCUFLOX) 0.3 % Place 1 Drop into 5 mL 2 02/11/2022 ophthalmic solution the right eye 4 times daily. documented in this encounter Progress Notes Jacky Blanchard MD - 01/22/2022 1030 EDT Chief Complaint Patient presents with ??? Post-OP Follow Up Comments 1 day post-op. S/p PPv, SO removal for PVR right eye 01/21/22. Hx Rd repair right eye. No pain, headache, or nausea. Pt says they slept fine. No drops. HPI Location: Right eye Pain: Quality: Blurry Severity: Moderate Duration: Hours Timing: Constant Lasts: Hours Context: 1 day post-op. S/p PPv, SO removal for PVR right eye 01/21/22. Hx Rd repair right eye. No pain, headache, or nausea. Pt says they slept fine. No drops. Modifying factors: Glasses. S/p PPV and SO removal right eye 01/21/22. Associated Signs & Symptoms: No pain, headache, or nausea. Pt says they slept fine. Visual Fluctuations: None Attestation: Base Eye Exam Visual Acuity (Snellen - Linear) Right Left Dist sc 20/150 Dist ph sc 20/80 -1 Tonometry (Applanation, 10:52) Right Left Pressure 18 Pupils Dark Light Shape Right 6 Round Left 3 2 Round Extraocular Movement Right Left Full, Ortho Full, Ortho Neuro/Psych Oriented x3: Yes Mood/Affect: Normal Dilation Right eye: Tropicamide 1%, Phenylephrine 2.5% @ 10:52 Slit Lamp and Fundus Exam Slit Lamp Exam Right Left Lids/Lashes Normal Normal Conjunctiva/Sclera vicryl sutures White and quiet Cornea Clear Clear Anterior Chamber Deep and quiet Deep and quiet Iris Round and reactive dilated Lens Posterior chamber intraocular lens 1+ Cortical cataract Vitreous clear s/p PPV clear Fundus Exam Right Left Disc Healthy Rim Healthy Rim C/D Ratio 0.3 Macula flat Normal Vessels Normal Normal Periphery Retina attached over scleral buckle, with PVR amid laser scars attached no predisposing lesion Please refer to large retinal drawing. IMAGING: DIAGNOSES: 1. Retinal detachment of right eye with multiple retinal tears Assessment Retina attached S/p 01/21/2022 PPVx, SO removal right eye S/p 12/24/2021 CE+IOL s/p 10/10/2021 PPV, EL, SO for recurrent retinal detachment?? s/p12??SB, PPV, EL, SF6, STK for VH and RD/RT S/p 03/21/2021 and 03/28/[address]21 laser [address] for peripheral RD with 3 tears Avoid swimming, otherwise no restrictions Start Ofloxacin QID right eye, Prednisolone QID right eye See Dr Mancia in 1 week for follow up Return in [address] Mancia, [address] Blanchard I have reviewed the past medical, family, [...] he is personally performing the service. DWIGHT Mendez (Scribe) documented in this encounter Plan of Treatment Upcoming Encounters Date Type Specialty Care Team Description 07/12/2022 Post-op Visit Ophthalmology Jacky Blanchard MD 111 [facility] [address] [place], [place] [phone] (Wo rk) 07/18/2022 Office Visit Urology Jose Carlos Fisher MD 111 [facility] 5 [place], [place] [phone] (Wo rk) documented as of this encounter Visit Diagnoses Diagnosis Retinal detachment of right eye with mul tiple retinal tears - Primary documented in this encounter Eye Exam Visual Acuity (Snellen - Linear) Right eye Left eye Dist sc 20/150 Dist ph sc 20/80 -1 Tonometry (Applanation, 10:52) Right eye Left eye Pressure 18 Pupils Dark Light Shape Right eye 6 Round Left eye 3 2 Round Extraocular Movement Right eye Left eye Full, Ortho Full, Ortho Neuro/Psych Oriented x3: Yes Mood/Affect: Normal Dilation Right eye: Tropicamide 1%, Phenylephrine 2.5% @ 10:52 Slit Lamp Exam Right eye Left eye Lids/Lashes Normal Normal Conjunctiva/Sclera vicryl sutures White and quiet Cornea Clear Clear Anterior Chamber Deep and quiet Deep and quiet Iris Round and reactive dilated Lens Posterior chamber intraocular lens 1+ Co rtical cataract Vitreous clear s/p PPV clear Fundus Exam Right eye Left eye Disc Healthy Rim Healthy Rim C/D Ratio 0.3 Macula flat Normal Vessels Normal Normal Periphery Retina attached over scleral buckle, wit h attached no predisposing lesion PVR amid laser scars Care Teams Teletypesetter Monitor Relationship Specialty Start Date End Date Sweetie Gonzales PCP - General Family Medicine - Primary 12/18/21 04/09/[address] [place] [address] [place] [phone] documented as of this encounter
--- OUTSIDE RECORDS SUMMARY | 2022-07-05 02:47 | XMS_ITS | Encounter Summary ---
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 Procedures DE RPR RETINAL DTCHMNT W/VITRECTOMY ANY METH RETINAL DETACH,W/VIT,INCL TAMP/LZ/CRY/DRN/LENS EXC Referral ID Status Reason Start Date Expiration Date Visits Requ ested Visits Authorized [id number] 07/10/2020 1 1 Encounter Details Date Type Department Care Team Description 12/24/2021 Anesthesia Event FA Operating Room Jose Martin Lepe MD [address], [place] [address] (Wo rk) Anesthesia Record Procedure Summary Procedure Name Responsible Anesthesia Start Anesthesia Stop Anesthesiologist Time Time Cataract Extraction Jose Martin Lepe MD 12/24/21 1241 12/24/21 1 311 w/Intraocular Lens Implant, Right Eye (Right: Eye) Events Date Time Event Comment 12/24/2021 1241 An Start The patient was re-evaluated immediately before moderate or deep sedation use, before anesthesia induction, or be fore the anesthesia procedure. 1241 An Start Data 1249 Anesthesia Ready 1308 an stop data 1311 Handoff to RN I completed my h [...] for questions and ac knowledgement of understanding. 1311 An Stop Name Total midazolam 1 mg/mL 2 mL vial 2 mg lactated ringers (LR) infusion 400 mL Agents Name O2 N2O Air Aux O2 flow Blood No blood administrations on file. Lines, Drains, and Airways Type Details Placement Removal Peripheral IV 12/24/21; 1109; 20; 1.25; B 12/24/21 1109 by Garry pierre, 12/24/21 1329 by Mccoy Introcan; Left, STUART Lloyd Eri c, RN Posterior; Hand; Inserted by RN; 1; None; 3.15% Chlorhexidine with IPA; 12/24/21; 1329 Wound 12/24/21; 1251; Right; Eye; 12/24/21 1251 by 0000 by 01/21/22 Zoie Muhammad, STUART Dunham, Monica Phelps RN documented in this encounter Social History Tobacco [...] encounter OR Notes Anesthesia Postprocedure Evaluation - Caterina Jimenez AA - 12/24/2021 1311 EDT Patient: Po Matthews Vital signs were reviewed with the recovery nurse. Complete vitals history is available in the Epic flowsheets. Vitals Value Taken Time BP 160/88 12/24/21 1310 Temp 36 12/24/21 1311 Resp 11 12/24/21 1311 Pulse From Oximetry 59 BPM 12/24/21 1311 SpO2 99 % 12/24/21 1311 Vitals shown include unvalidated device data. Last Pain Score - Type of Anesthesia - MAC Anesthesia Post Evaluation Post-procedure vitals reviewed and are stable. Level of consciousness: awake and alert and oriented Temperature status: normothermia Respiratory status: airway patent, room air, stable and O2 Sat-within patient's normal range Cardiovascular status: acceptable and stable Hydration status: adequate Nausea/Vomiting: none Pain management: adequate Post-Op Assessment: patient tolerated procedure well with no complications and patient satisfied with anesthesia care Patient participation: able to participate Disposition: outpatient/home Anesthesia Complications: No apparent anesthesia complications Anesthesia Preprocedure Evaluation - Jose Martin Lepe MD - 12/24/2021 1120 EDT Anesthesia Preprocedure Evaluation Procedure: Cataract Extraction w/Intraocular Lens Implant, Right Eye (Right Eye) Diagnosis: 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 Chart and Nursing Notes reviewed, including NPO status and Medication History. Additional ROS/History Findings: Past Medical History: Diagnosis Date ??? Aortic valve disorder s/p replacement with bovine valve, takes ASA, see cardiology Dr Spear at [facility] ??? Cancer (HCC-CMS) (HCC) prostate per biopsy around 2016, monitored by urologist, no surgery at this time per pt 12/18/21. ??? Elevated prostate specific antigen (PSA) ??? Exercise involving walking always busy, works in the garden, can amb 2 flights of stairs without SOB ??? Family history of malignant neoplasm of prostate both brothers ??? History of general anesthesia ??? Hypertension lisinopril dose incr to 30 mg December 2021, avg 130/78 at home, checks it daily ??? Wears glasses Relevant Problems Anesthesia (-) Motion sickness (-) PONV (postoperative nausea and vomiting) (-) Sleep apnea PULMONARY (-) Asthma (-) Chronic obstructive pulmonary disease (HCC-CMS) (HCC) (-) Pneumonia (-) Recent URI (-) Shortness of breath (-) Sleep apnea Neuro/Psych (-) CVA (cerebral vascular accident) (HCC-CMS) (HCC) (-) Seizures (HCC-CMS) (HCC) CARDIOVASCULAR (-) DAWN (dyspnea on exertion) (-) AK (myocardial infarction) (HCC-CMS) (HCC) GASTROINTESTINAL (-) Gastroesophageal reflux disease /Renal (-) Liver disease (-) Renal disease ENDO/GI (-) Diabetes mellitus type 1 (HCC-CMS) (HCC) (-) Diabetes mellitus, type 2 (HCC) (-) Hyperthyroidism (-) Hypothyroidism Other (-) Blood dyscrasia syndrome Past Surgical History: Procedure Laterality Date ??? CARDIAC VALVE REPLACEMENT 12/01/2014 aortic valve replacement ??? OTHER SURGICAL HISTORY scleral buckle 07/11/2021 right eye ??? RETINAL DETACHMENT SURGERY 03/21/2020 right eye ??? VITRECTOMY 10/10/2021 right eye Past Anesthetics 10/10/2021: Vitrectomy Medications fentanyl citrate (PF) injection 25 mcg ketAMINE 5 mL prefilled syringe 10 mg lidocaine 2% (PF) injection glass vial 60 mg propOFol (DIPRIVAN) injection 100 mg acetaminophen 10 mg/ml 100 mL infusion 1,000 mg 07/11/2021: Scleral buckle Airway Final Airway Type: endotracheal airway Mask Difficulty Assessment: 5 - Two providers required Final Endotracheal Airway: ETT Cuffed: Yes Cormack-Lehane Classification: grade IIb - view of arytenoids or posterior of glottis only Technique Used For Successful Placement: direct laryngoscopy Devices/Methods Used in Placement: intubating stylet Insertion Site: oral Blade Type: Debby Blade Size: 4 ETT Size (mm): 7.5 Number of Attempts at Approach: 1 Review of Systems Constitutional: Negative for chills and fever. Respiratory: Negative for shortness of breath. Cardiovascular: Negative for chest pain. Gastrointestinal: Negative for heartburn, nausea and vomiting. Musculoskeletal: Negative for neck pain. SOCIAL HISTORY: [] None [] Current smoking [] Vaping [] Marijuana [x] Alcohol 3-4 beers per week Social History Tobacco Use Smoking Status Never Smoker Smokeless Tobacco Never Used Social History Substance and Sexual Activity Drug Use Never Comment: never Social History Substance and Sexual Activity Alcohol Use Yes ??? Alcohol/week: 3.0 - 4.0 standard drinks ??? Types: 3 - 4 Cans of beer per week FAMILY HISTORY: [x]No family history of allergic reactions to anesthesia No current facility-administered medications on file prior to encounter. Current Outpatient Medications on File Prior to Encounter Medication Sig Dispense Refill ??? aspirin (ASPIRIN LOW DOSE) 81 mg EC tablet Take 81 mg by mouth daily. ??? ketOROLAC (ACULAR) 0.5 % ophthalmic solution Place 1 Drop into the right eye 4 times daily. 1 drop QID 3 days prior to surgery and 1 month after 10 mL 3 ??? metoprolol (LOPRESSOR) 25 mg tablet Take 25 mg by mouth daily. ??? moxifloxacin (VIGAMOX) 0.5 % ophthalmic solution Place 1 Drop into the right eye 4 times daily. 1 drop QID 3 days prior to surgery and 10 days after 3 mL 3 ??? moxifloxacin (VIGAMOX) 0.5 % ophthalmic solution Place 1 Drop into the right eye 4 times daily. (Patient not taking: Reported on 11/08/2021) 10 mL 3 ??? pravastatin (PRAVACHOL) 40 mg tablet Take 40 mg by mouth daily. ??? prednisoLONE (PRED FORTE) 1 % ophthalmic suspension Place 1 Drop into the right eye 4 times daily. 10 mL 3 Current Facility-Administered Medications Medication Route Frequency ??? lactated ringers (LR) infusion intravenous CONTINUOUS ??? lidocaine (PF) 10 mg/mL (1 %) injection 2 mg intradermal PRN ??? lidocaine (PF) 3.5 % ophthalmic gel right eye PRE-OP MULTIPLE No Known Allergies No results found for: WBC, HGB, HCT, MCV, PLT No results found for: NA, K, KEXT, CL, CLEXT, CO2, CO2EXT No results found for: BUN Lab Results Component Value Date CREATININE 1.10 08/20/2016 No results found for: INR, PROTIME No results found for: PTT UPT: No results found for: PREGUR COVID: [x] None on file No results found for: COVIDUV Blood Type: No results found for: ABO, LABRH, LABANTI, SPECEXP EKG: [x] None on file ECHO: [x] None on file Cardiac Stress: [x] None on file Left Heart Cath: [x] None on file BP (!) 153/85 (BP Cuff Location: Left arm, BP Patient Position: Semi fowlers) Comment: RN Notified Temp 36.7 ??C (98.1 ??F) (Temporal) Resp 16 Ht 167.6 cm (65.98) Wt 97.6 kg (215 lb 2.7 oz) SpO2 99% BMI 34.75 kg/m?? Physical Exam Airway Mallampati: II Neck ROM: full Cardiovascular Rhythm: regular Rate: normal Dental Pulmonary Breath sounds clear to auscultation Abdominal Dental Exam: Chipped NPO Status: Liquids: 0600 Solids: [x] Prior to midnight Anesthesia Plan ASA 3 Anesthesia Type - MAC Anesthesia plan and risks discussed. Informed consent obtained from patient. Specific risks discussed were vomiting, nausea and dental injury. PAT Note Notes from 11/24/21 through 12/24/21 No notes of this type exist for this encounter. documented in this encounter Plan of Treatment Upcoming Encounters Date Type Specialty Care Team Description 07/12/2022 Post-op Visit Ophthalmology Jacky Blanchard MD [address] [phone] (Wo rk) 07/18/2022 Office Visit Urology Jose Carlos Fisher MD [address] [phone] (Wo rk) documented as of this encounter Visit Diagnoses Not on filedocumented in this encounter Administered Medications Inactive Administered Medications - up to 3 most recent administrations Medication Order MAR Action Action Date Dose Rate Site lactated ringers (LR) Continued by Anesthesia 12/24/2021 12:41 30 mL/hr infusion EDT 30 mL/hr, intravenous, CONTINUOUS, Starting on Fri12/24/21 at 1130, Until Fri12/24/21 at 1534, Routine, Preprocedure New Bag 12/24/2021 11:10 EDT 30 mL/hr 30 mL/hr midazolam (PF) (VERSED) injection Given 12/24/2021 12:44 EDT 2 mg intravenous, PRN, Starting on Fri12/24/21 at 1244, Until Fri12/24/21 at 1311, Routine, Anesthesia Intraprocedure documented in this encounter Orders Medications Ordered That Might Not Have Count Last Ord ered Date First Ordered Date Been Administered midazolam (PF) (VERSED) injection 1 12/24/2021 documented in this encounter Care Teams Reproduction Machine Loader Relationship Specialty Start Date End Date Sweetie Gonzales PCP - General Family Medicine - Primary 12/18/21 04/09/[address] [place] [address] [place] [address] documented as of this encounter
--- OUTSIDE RECORDS SUMMARY | 2022-07-05 02:47 | XMS_ITS | Encounter Summary ---
:1950 Author Organization [facility] Address [address] [place] [id number] Care Team Providers Name Role Phone Yosi Graham [facility] Primary Care Provider [phone] Reason for Visit 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 Procedures FL RPR RETINAL DTCHMNT W/VITRECTOMY ANY METH Vitrectomy, Possible Lensectomy, Laser, Oil, RIGHT EYE Referral ID Status Reason Start Date Expiration Date Visits Requ ested Visits Authorized [id number] 08/03/2022 1 1 Encounter Details Date Type Department Care Team Description 10/10/2021 Anesthesia Event [facility] OR Pily Romano MD [address] [phone] [place] [address] Mayank Plasencia CRNA [address] [phone] [place], [place] [address] Anesthesia Record Procedure Summary Procedure Name Responsible Anesthesia Start Anesthesia Stop Time Anesthesiologist Time Vitrectomy, Laser, Pily Romano MD 10/10/21 1535 04/25 1718 Oil, RIGHT EYE (Right: Eye) Events Date Time Event Comment 10/10/2021 1535 An Start The patient was re-evaluated immediately before moderate or deep sedation use, before anesthesia induction, or be fore the anesthesia procedure. 1535 An Start Data 1542 Anesthesia Ready 1704 an stop data 1718 Handoff to RN I completed my h [...] for questions and ac knowledgement of understanding. 1718 An Stop Name Total fentanyl citrate (PF) injection 25 mcg ketAMINE 5 mL prefilled syringe 10 mg lidocaine 2% (PF) injection glass vial 60 mg propOFol (DIPRIVAN) injection 100 mg acetaminophen 10 mg/ml 100 mL infusion 1,000 mg lactated ringers (LR) infusion 600 mL Agents Name O2 N2O Air Aux O2 flow Blood No blood administrations on file. 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 Chart and Nursing Notes reviewed, including NPO status and Medication History. Additional ROS/History Findings: No Known Allergies Review of Systems Past Medical History: Diagnosis Date ??? Cancer [...] status discussed? No PAT Note Notes from 09/10/21 through 10/10/21 No notes of this type exist for this encounter. Anesthesia Postprocedure Evaluation - Dejuan Sifuentes MD - 10/10/2021 1719 EST Patient: Po Matthews Vital signs were reviewed with the recovery nurse. Complete vitals history is available in the Epic flowsheets. Vitals Value Taken Time BP 139/79 10/10/21 1719 Temp 36.4 10/10/21 1719 Resp 12 10/10/21 171 Pulse From Oximetry 58 BPM 10/10/21 1718 SpO2 98 % 10/10/211717 Vitals shown include unvalidated device data. Last Pain Score - Numeric Pain Level (Scale 1-10): 0 Type of Anesthesia - MAC Anesthesia Post Evaluation Post-procedure vitals reviewed and are stable. Level of consciousness: awake Temperature status: normothermia and patient returned to pre-procedure baseline Respiratory status: airway patent and stable Cardiovascular status: stable Hydration status: adequate Nausea/Vomiting: none Pain management: adequate Post-Op Assessment: patient tolerated procedure well with no complications Patient participation: able to participate Disposition: outpatient/home Anesthesia Complications: No apparent anesthesia complications documented in this encounter Plan of Treatment Upcoming Encounters Date Type Specialty Care Team Description 07/12/2022 Post-op Visit Ophthalmology Jacky Blanchard MD [address] [phone] (Wo rk) 07/18/2022 Office Visit Urology Jose Carlos Fisher MD [address] [phone] (Wo rk) documented as of this encounter Visit Diagnoses Not on filedocumented in this encounter Administered Medications Inactive Administered Medications - up to 3 most recent administrations Medication Order MAR Action Action Date Dose Rate Site acetaminophen (OFIRMEV) IV Given 10/10/2021 16:48 EST 1,000 mg solution intravenous, PRN, Starting on Fri10/10/21 at 1648, Until Fri10/10/21 at 1718, Routine, Anesthesia Intraprocedure fentaNYL citrate (PF) injection Given 10/10/2021 15:39 EST 25 mcg intravenous, PRN, Starting on Fri10/10/21 at 1539, Until Fri10/10/21 at 1718, Routine, Anesthesia Intraprocedure ketAMINE in NaCl, iso-osmotic (KETALAR) 50 mg/5 Given 10/10/2021 15:39 EST 10 mg mL (10 mg/mL) IV injection intravenous, PRN, Starting on Fri10/10/21 at 1539, Until Fri10/10/21 at 1718, Routine, Anesthesia Intraprocedure lactated ringers (LR) Continued by Anesthesia 10/10/2021 15:35 EST 30 mL/hr infusion 30 mL/hr, intravenous, CONTINUOUS, Starting on Fri10/10/21 at 1345, Until Fri10/10/21 at 202, Routine, Preprocedure Restarted 10/10/2021 15:34 EST New Bag 10/10/2021 15:04 EST 30 mL/hr 30 mL/hr lidocaine (PF) 20 mg/mL (2 %) injection Given 10/10/2021 15:39 EST 60 mg intravenous, PRN, Starting on Fri10/10/21 at 1539, Until Fri10/10/21 at 1718, Routine, Anesthesia Intraprocedure propOFol (DIPRIVAN) injection Given 10/10/2021 15:39 EST 100 mg intravenous, PRN, Starting on Fri10/10/21 at 1539, Until Fri10/10/21 at 1718, Routine, Anesthesia Intraprocedure documented in this encounter Care Teams Social Media Coordinator Relationship Specialty Start Date End Date Yosi Graham RPA PCP - General 07/05/16 12/17/[address] [address] documented as of this encounter
--- OUTSIDE RECORDS SUMMARY | 2022-07-05 02:47 | XMS_ITS | Encounter Summary ---
:1950 Author Organization [facility] Address [address] [place] [address] Care Team Providers Name Role Phone Yosi Graham EDER Primary Care Provider Reason for Visit Reason Comments Post-OP Follow Up Encounter Details Date Type Department Care Team Description 07/12/2021 Post-op Visit [facility] Jacky Blanchard MD Retinal detachment Ophthalmology - Main [address] [place] [address] multiple retinal [address] [facility] tears (Primary Dx) [place] [address] [address], [place] [phone] (Wo rk) Social History Tobacco Use Types [...] Place 1 Drop into 5 mL 1 05/202110/10/2021 ophthalmic solution the right eye 4 times daily. prednisoLONE (PRED FORTE) Place 1 Drop into 10 mL 3 05/202110/10/2021 1 % ophthalmic suspension the right eye 4 times daily. documented in this encounter Progress Notes Jacky Blanchard MD - 07/12/2021 1030 EST Chief Complaint Patient presents with ??? Post-OP Follow Up Comments Patient [address] repair right eye. No eye pain. Slept okay last night. No current eye drops HPI Location: Pain: 0 - No pain Quality: Severity: Duration: Timing: Lasts: Context: Patient [address] repair right eye. No eye pain. Slept okay last night. No current eye drops Modifying factors: s/p RD repair Associated Signs & Symptoms: Patient [address] repair right eye. No eye pain. Slept okay last night. No current eye drops Visual Fluctuations: Attestation: Base Eye Exam Visual Acuity (Snellen - Linear) Right Left Dist sc CF at Tonometry (Applanation, 11:15) Right Left Pressure 20 Neuro/Psych Oriented x3: Yes Mood/Affect: Normal Dilation Right eye: Phenylephrine 2.5%, Tropicamide 1% @ 11:15 Slit Lamp and Fundus Exam Slit Lamp Exam Right Left Lids/Lashes Normal Conjunctiva/Sclera well closed peritomy, Subconjunctival hemorrhage Cornea Clear Anterior Chamber Deep and quiet Iris Dilated Lens 3+ feathering Vitreous 90% gas fill Fundus Exam Right Left Macula Flat Vessels Normal Periphery Retina attached w/ 360 laser encircling retinal tears Please refer to large retinal drawing. IMAGING: DIAGNOSES: 1. Retinal detachment of right eye with multiple retinal tears Assessment Retina attached s/p12/ SB,PPV,EL,SF6, STK for VH and RD/RT No evidence of infection Good IOP 90% gas fill No heavylifting or bending Continue postioning x 1 week No hot tubbing or swimming pools Start Predforte QID Start Ocuflox QID Return 1 week/PRN I have reviewed the past medical, family, [...] Post-op Visit Ophthalmology Jacky Blanchard MD [address] [phone] (Wo rk) 07/18/2022 Office Visit Urology Jose Carlos Fisher MD [address] [phone] (Wo rk) documented as of this encounter Visit Diagnoses Diagnosis Retinal detachment of right eye with mul tiple retinal tears - Primary documented in this encounter Eye Exam Visual Acuity (Snellen - Linear) Right eye Left eye Dist sc CF at Tonometry (Applanation, 11:15) Right eye Left eye Pressure 20 Neuro/Psych Oriented x3: Yes Mood/Affect: Normal Dilation Right eye: Phenylephrine 2.5%, Tropicami de 1% @ 11:15 Slit Lamp Exam Right eye Left eye Lids/Lashes Normal Conjunctiva/Sclera well closed peritomy, Subconjunctival he morrhage Cornea Clear Anterior Chamber Deep and quiet Iris Dilated Lens 3+ feathering Vitreous 90% gas fill Fundus Exam Right eye Left eye Macula Flat Vessels Normal Periphery Retina attached w/ 360 laser encircling retinal tears Care Teams Log Driver Relationship Specialty Start Date End Date Yosi Graham, RPA PCP - General 07/05/16 12/17/[address] [address] documented as of this encounter
--- OUTSIDE RECORDS SUMMARY | 2022-07-05 02:47 | XMS_ITS | Encounter Summary ---
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 Follow-up Comments Pt here for 9 day post-op right eye S/P PPv, SO removal (01-21-22) PVR Gtts: Ocuflox 4/-, PF 4/- VA improving right. No floaters or flashes. No pain HPI Location: Right eye Pain: 0 - No pain Quality: Blurry Severity: Moderate Duration: Days Timing: Constant Lasts: Continuous Context: VA improving right. No floaters or flashes. No pain Modifying factors: S/P PPv,SO removal right (01-21-22) Associated Signs & Symptoms: PVD right Visual Fluctuations: None Attestation: Base Eye Exam Visual Acuity (Snellen - Linear) Right Left Dist sc 20/50 +1 Dist cc 20/30 +2 Dist ph sc 20/40 -2 Correction: Glasses Tonometry (Applanation, 9:12) Right Left Pressure 16 16 Neuro/Psych Oriented x3: Yes Mood/Affect: Normal Dilation Right eye: Phenylephrine 2.5%, Tropicamide 1% @ 9:12 Slit Lamp and Fundus Exam Slit Lamp Exam Right Left Lids/Lashes Normal Normal Conjunctiva/Sclera vicryl sutures intact White and quiet Cornea Clear Clear Anterior Chamber Deep and quiet Deep and quiet Iris Round and reactive Lens Posterior chamber intraocular lens Vitreous clear s/p PPV Fundus Exam Right Left Disc Healthy Rim C/D Ratio 0.3 Macula flat Vessels Normal Periphery Retina attached over scleral buckle, with PVR amid laser scars , no extension beyond laser All five layers of the cornea are normal unless otherwise specified. Please refer to large retinal drawing. IMPRESSION: 1. 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 Proliferative vitreoretinopathy of right eye PLAN: Stable s/p PARS PLANA VITRECTOMY/SO removal 01/21 No extension of PROLIFERATIVE VITREORETINOPATHY Barricaded by laser Retina remains flat Will start PF taper D/C OF when out, but cont 4/ til then No need for positioning Follow up RR 3-4 weeks sooner PRN I have reviewed the patient's past medical, family, social and surgical history. I have also reviewed the patient's medications, allergies, and problem list. I performed my own HPI and have reviewed the tech's ROS as well. I personally completed this exam myself. Jh Mancia MD I am scribing for Dr. Jh Mancia MD, while he is personally performing the service. 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 documented in this encounter Eye Exam Visual Acuity (Snellen - Linear) Right eye Left eye Dist sc 20/50 +1 Dist cc 20/30 +2 Dist ph sc 20/40 -2 Correction: Glasses Tonometry (Applanation, 9:12) Right eye Left eye Pressure 16 16 Neuro/Psych Oriented x3: Yes Mood/Affect: Normal Dilation Right eye: Phenylephrine 2.5%, Tropicami de 1% @ 9:12 Slit Lamp Exam Right eye Left eye Lids/Lashes Normal Normal Conjunctiva/Sclera vicryl sutures intact White and quiet Cornea Clear Clear Anterior Chamber Deep and quiet Deep and quiet Iris Round and reactive Lens Posterior chamber intraocular lens Vitreous clear s/p PPV Fundus Exam Right eye Left eye Disc Healthy Rim C/D Ratio 0.3 Macula flat Vessels Normal Periphery Retina attached over scleral buckle, wit h PVR amid laser scars , no extension beyond laser Care Teams Cray Fishing Hand Relationship Specialty Start Date End Date Sweetie Gonzales PCP - General Family Medicine - Primary 12/18/21 04/09/22 [address] [facility] [phone] documented as of this encounter
--- OUTSIDE RECORDS SUMMARY | 2022-07-05 02:47 | XMS_ITS | Encounter Summary ---
:1950 Author Organization [facility] Address [address] [place] [address] Care Team Providers Name Role Phone Yosi Graham EDER Primary Care Provider [phone] Reason for Visit Reason Onset Date Comments Review Treatment Options 08/10/2021 Encounter Details Date Type Department Care Team Description 08/10/2021 Telephone [facility] Jacky Blanchard MD Review Treatment Ophthalmology - Main [address] [place] [address] [address] [place], [place] [phone] [place] [address], [facility] [place] [address] (Wo rk) Social History Tobacco [...] this encounter Miscellaneous Notes Telephone Encounter - Vonda Peralta RN - 08/16/[address] Aly's office. Provided Dr. Blanchard's recommendation to the staff member. Staff member would update Dr. Kraus once in office. They stated that the patient was seeing 20/25 with both eyes at yesterday's visit. Vonda Peralta RN 08/16/2021 8:38 Telephone Encounter - Nicolas Banerjee RN - 08/10/[address] Blanchard, it depends if patient can obtain 20/[address] Reina. 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 Nicolas Banerjee RN 08/10/2021 16:53 Telephone Encounter - Pb Whyte - 08/10/[address] 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 Patient reported to this provider that Dr. Blanchard had advised against this and could drive personal vehicle only. Patient is being seen in Dr. Aly's office now and will undergo a routine exam without any changes until hearing back from Dr. Blanchard regarding this. documented in this encounter Plan of Treatment Upcoming Encounters Date Type Specialty Care Team Description 07/12/2022 Post-op Visit Ophthalmology Jacky Blanchard MD [address] [phone] (Wo rk) 07/18/2022 Office Visit Urology Jose Carlos Fisher MD [address] [phone] (Wo rk) documented as of this encounter Visit Diagnoses Not on filedocumented in this encounter Care Teams District Recruiter Relationship Specialty Start Date End Date Yosi Graham, EDER PCP - General 07/05/16 12/17/21 [address] [facility] 1 [place] [address] documented as of this encounter
--- OUTSIDE RECORDS SUMMARY | 2022-07-05 02:47 | XMS_ITS | Encounter Summary ---
:[address] 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 Procedures [place] RPR RETINAL DTCHMNT W/VITRECTOMY ANY METH RETINAL DETACH,W/VIT,INCL TAMP/LZ/CRY/DRN/LENS EXC Referral ID Status Reason Start Date Expiration Date Visits Requ ested Visits Authorized [id number] 07/10/2020 1 1 Encounter Details Date Type Department Care Team Description 12/24/2021 Surgery FA Operating Room Rodney Sampson Cataract Extraction [facility] MD Eduardo w/[place] [address] [place] [address] Implant, Right Eye [phone] [facility] [[id number] (CP T??)] [facility] 5 [place] [address] (Wo rk) Surgery Details Date/Time Status Location OR Service Patient Case Class Case Tr auma Class Type Case? 12/24/21 1245 Posted [facility] FOR Ophthalmology [facility] - ASC OR 04 Outpatient Elective Surgery Panel 1 Procedure LRB Anes Op Region Wound Class Commen ts Cataract Extraction Right Monitor Anesthesia Eye Class I/ Clean w/Intraocular Lens Care Implant, Right Eye Surgeon Surgeon Role Service Panel Rodney Sampson MD Primary Ophthalmology 1 documented in this [...] as of this encounter Discharge Instructions Discharge Rodney Vences MD - 12/24/2021 13:15 EDT Post Cataract [...] enlarged slightly with a keratome. A Tecnis [id number] +19.5 diopter three-piece intraocular lens was injected into the capsular bag using an Pennock Unfolder injector. Miochol was administered into the [...] Post-op Visit Ophthalmology Jacky Blanchard MD [address] [phone] (Wo rk) 07/18/2022 Office Visit Urology Jose Carlos Fisher MD [address] [phone] (Wo rk) documented as of this encounter Procedures Procedure Name Priority Date/Time Associated Diagnosis Comme nts EXTRACTION, CATARACT, 12/24/2021 12:32 EDT Combined fo telly of EXTRACAPSULAR, WITH IOL age-related catar act of INSERTION right eye documented in this encounter Visit Diagnoses Diagnosis Combined forms of age-related cataract o f right eye Other and combined forms of senile catar act documented in this encounter Administered Medications Inactive Administered Medications - up to 3 most recent administrations Medication Order MAR Action Action Date Dose Rate Site acetaminophen (TYLENOL) solution unit do se cup 650 mg 650 mg, oral, PRN, 1 dose, Starting on M on 12/24/21 at 1302, Until 12/24/21 at 1534, Pain, Routine, Recovery (only) acetaminophen [...] Recovery (only) acetylcholine chloride (MIOCHOL-E) 1 % Given 12/24/2021 13:00 ED T 1 mL Right Eye (10 mg/mL) injection PRN, Starting on Fri12/24/21 at 1300, Until Fri12/24/21 at 1308, Routine, Intraprocedure atropine 0.1 mg/mL syringe 0.5 mg 0.5 mg, intravenous, PRN, Starting on Fri12/24/21 at 1 302, Until Fri12/24/21 at 1534, Symptomatic HR < 50, Routine, Recovery (only) balanced salt solution inrrigation Given 12/24/2021 12:52 EDT 50 0 mL Right Eye solution (BSS PLUS) 500 mL, EPINEPHrine HCl (PF) (ADRENALIN) 0.5 mL irrigation PRN, Starting on Fri12/24/21 at 1252, Until Fri12/24/21 at 1308, Routine, Intraprocedure balanced salts (BSS) ophthalmic solution Given 12/24/2021 12:52 EDT 15 mL PRN, Starting on Fri12/24/21 at 1252, Until Fri12/24/21 at 1308, Routine, Intraprocedure chondroitin-sodium hyaluronate (VISCOAT) Given 12/24/2021 12:53 EDT 1 Each ophthalmic solution PRN, Starting on Fri12/24/21 at 1253, Until Fri12/24/21 at 1308, Routine, Intraprocedure ahayawrncnppab-uladdagrkbj-kpdtfisggtnn-phenylephrine-ketoro lac Given 12/24/2021 1 1%-1%-0.1%-2.5%-0.4% ophthalmic solution [...] catheter placement, Ro utine, Preprocedure lidocaine (PF) 10 mg/mL (1 %) injection Given 12/24/2021 12:53 EDT 1 mL Right E ye PRN, Starting on Fri12/24/21 at 1253, Until Fri12/24/21 at 1308, Routine, Intraprocedure lidocaine (PF) 3.5 % ophthalmic gel Given [...] Drop Given 12/24/2021 11:10 EDT 1 Drop moxifloxacin (VIGAMOX) 0.5 % ophthalmic Given 12/24/2021 12:53 E DT 1 Drop solution PRN, Starting on Fri12/24/21 at 1253, Until Fri12/24/21 at 1308, Routine, Intraprocedure naloxone (NARCAN) injection 0.2 mg 0.2 mg, intravenous, PRN, Starting on Fri12/24/21 at 1 302, Until Fri12/24/21 at 1534, Opioid Reversal, Routine, Recovery (only) ondansetron (PF) (ZOFRAN) injection 4 mg 4 mg, intravenous, PRN, 1 dose, Starting on Fri12/24/21 at 1302, Until Fri12/24/21 at 1534, Nausea, Vomiting, Routine, Recovery (only) sodium hyaluronate (HEALON) ophthalmic Given 12/24/2021 12:53 ED T 5.5 mg Right Eye injection PRN, Starting on Fri12/24/21 at 1253, Until Fri12/24/21 at 1308, Routine, Intraprocedure timolol (TIMOPTIC) 0.5 % ophthalmic solu tion Given 12/24/2021 12:53 EDT 1 Drop PRN, Starting on Fri12/24/21 at 1253, Until Fri12/24/21 at 1308, Routine, Intraprocedure documented in this encounter Historical Medications This list may reflect changes made after this encounter. Medication Sig Dispensed Refills Start Date End Date pravastatin (PRAVACHOL) 40 Take 40 mg by mouth 0 mg tablet daily. added in this encounter Active and Recently Administered Medications Times are shown in EDT. Scheduled Medication Order 12/22/2021 12/23/2021 12/24/2021 dgtvhhanrxwakx-meciyeogrlf-palmpmqxnwgu- phenylephrine-ketorolac 1%-1%-0.1%-2.5%-0.4% ophthalmic solution drops 1 Drop [...] - Provider: Rodney Sampson MD - Comment: [id number]) PRN, Starting on Fri12/24/21 at 1300, Un til 12/24/21 at 1308, Routine, Intraprocedure atropine 0.1 mg/mL syringe 0.5 mg 0.5 mg, intravenous, PRN, Starting on Mo n 12/24/21 at 1302, Until 12/24/21 at 1534, Symptomatic HR < 50, Routine, [...] Starting on 12/24/21 at 1253, Un til Fri12/24/21 at 1308, Routine, Intraprocedure lidocaine (PF) 3.5 % ophthalmic gel 1120 (Given - Provider: Prema Mendoza RN)1234 (Given - Provider: Prema Mendoza RN) right eye, PRE-OP MULTIPLE, Starting on Fri12/24/21 at 1108, Until Fri12/24/21 at 1534, Pain, Preprocedure moxifloxacin (VIGAMOX) 0.5 % ophthalmic solution (CANCELED) 1253 (Given - Provider: Rodney Sampson MD) PRN, Starting on Fri12/24/21 at 1253, Un til 12/24/21 at 1308, Routine, Intraprocedure naloxone (NARCAN) injection 0.2 mg 0.2 mg, intravenous, PRN, Starting on Mo n 12/24/21 at 1302, Until Fri12/24/21 at 1534, Opioid Reversal, Routine, Recovery (only) ondansetron (PF) (ZOFRAN) injection 4 mg 4 mg, intravenous, PRN, 1 dose, Starting on Fri12/24/21 at 1302, Until Fri12/24/21 at 1534, Nausea, Vomiting, Routine, Recovery (only) sodium hyaluronate (HEALON) ophthalmic injection (CANCELED) 1253 (Given - Provider: Rodney Sampson MD) PRN, Starting on Fri12/24/21 at 1253, Un til 12/24/21 at 1308, Routine, Intraprocedure timolol (TIMOPTIC) 0.5 % ophthalmic solution (CANCELED) 1253 (Given - Provider: Rodney Sampson MD) PRN, Starting on Fri12/24/21 at 1253, Un til Fri12/24/21 at 1308, Routine, Intraprocedure Linked Groups Order Group 1: acetaminophen (TYLENOL) solution unit dose cup 650 mgJump to med 650 mg, oral, PRN, 1 dose, Starting on M on 12/24/21 at 1302, Until Fri12/24/21 at 1534, Pain, Routine, Recovery (only) Or [...] acetaminophen (TYLENOL) tablet 650 mg 2 12/24/2021 atropine 0.1 mg/mL syringe 0.5 mg 1 12/24/2021 lactated ringers (LR) infusion 1 12/24/2021 lidocaine (PF) 10 mg/mL (1 %) injection 2 1 2021 mg naloxone (NARCAN) injection 0.2 mg 1 12/24/2021 ondansetron (PF) (ZOFRAN) injection 4 mg 1 022 Discharge Count Last Ordered Date First Ordered Date DISCHARGE PATIENT 1 12/24/2021 documented in this encounter Care Teams Behavioral Health Clinician Relationship Specialty Start Date End Date Sweetie Gonzales PCP - General Family Medicine - Primary 12/18/21 04/09/[address] [place] [address] [place] [address] documented as of this encounter
--- OUTSIDE RECORDS SUMMARY | 2022-07-05 02:47 | XMS_ITS | Encounter Summary ---
:1950 Author Organization [facility] Address [address] [place] [address] Care Team Providers Name Role Phone Yosi Graham [facility] Primary Care Provider [phone] Reason for Visit 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 Procedures VA RPR RETINAL DTCHMNT W/VITRECTOMY ANY METH Vitrectomy, Possible Lensectomy, Laser, Oil, RIGHT EYE Referral ID Status Reason Start Date Expiration Date Visits Requ ested Visits Authorized [id number] 08/03/2022 1 1 Encounter Details Date Type Department Care Team Description 10/10/2021 Hospital Encounter [facility] OR Jacky Blanchard MD 111 [facility] 111 [place], [place] [phone] [place], [place] [phone] [facility] 5 [place] [address] (Wo rk) Social History Tobacco [...] Self Nursing Home documented in this encounter Procedure Notes Jacky Blanchard MD - 10/10/2021 1714 ESTProcedure(s): VA RPR RETINAL DTCHMNT W/VITRECTOMY ANY METH Pre-Procedure [...] CS silicone oil right eye Surgeon: Jacky Blanchadr MD Anesthesia: Local RB with sedation Findings: [...] procedure. 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 is [phone]- coming from [facility] Elsa Miles RN - 10/10/2021 1441 EST [...] Post-op Visit Ophthalmology Jacky Blanchard MD [address] [phone] (Wo rk) 07/18/2022 Office Visit Urology Jose Carlos Fisher MD [address] [phone] (Wo rk) documented as of this encounter [...] (only) cyclopentolate (CYCLOGYL) 1 % ophthalmic Given 10/10/2021 [...] Until Fri10/10/21 at 2026, Routine, Recovery (only) naloxone (NARCAN) injection 0.2 mg 0.2 mg, intravenous, PRN, Starting on 10/10/21 at 1710, Until Fri10/10/21 at 2026, Opioid Reversal, Routine, Recovery (only) ondansetron (PF) [...] Drop Given 10/10/2021 14:44 EST 1 Drop documented in this encounter Discontinued Medications Medication Sig Discontinue Reason Start Date End Date sildenafil citrate Take 1 Tab by mouth 06/23/2018 (VIAGRA) 100 mg tablet as needed for Erectile Dysfunction. pravastatin (PRAVACHOL) Take 10 mg by mouth 10/10/2021 10 mg tablet daily. prednisoLONE (PRED Place 1 Drop into 07/13/2021 03/04/2022 FORTE) 1 % ophthalmic the right eye [...] infusion 1 730 (Canceled Entry - Provider: Batch Job User [...] BSS I: #[id number] BSS II: #[id number] EPI: #[id number]) PRN, Starting on Fri10/10/21 at 1607, Unt il Fri10/10/21 at 1715, Routine, Intraprocedure balanced salts (BSS) ophthalmic solution (CANCELED) 1607 (Given - Provider: Jacky Blanchard MD - Comment: irrigation) PRN, Starting on Fri10/10/21 at 1607, Unt il Fri10/10/21 at 1715, Routine, Intraprocedure chondroitin-sodium hyaluronate (VISCOAT) ophthalmic solution (CA NCELED) 1608 (Given - Provider: Jacky Blanchard MD - Comment: #[id number]) PRN, Starting on Fri10/10/21 at 1608, Unt il Fri10/10/21 at 1715, Routine, Intraprocedure cyclopentolate (CYCLOGYL) 1 % ophthalmic solution 1 Drop (COMPLE WYATT) 1443 (Given - Provider: Elsa Miles RN)1448 (Given - Provider: Elsa Miles RN)1453 (Given - Provider: Elsa Miles RN) 1 Drop, right eye, PRE-OP Q 5 MINUTES, 3 doses, Starting on Fri10/10/21 at 1321, Until Fri10/10/21 at 1453, Other, Routine, Preprocedure fentaNYL citrate (PF) injection 25-50 mcg 25-50 mcg, intravenous, EVERY 5 MIN PRN, Starting on Fri10/10/21 at 1710, Until Fri10/10/21 at 2026, Pain, Routine, Recovery (only) lidocaine 20 mg/mL (2 %) 5 mL, bupivacai ne (PF) (MARCAINE) 0.75 % (7.5 mg/mL) 5 mL (CANCELED) 1657 (Given - Provid er: Jacky Blanchard MD - Comment: 0.75% Marcaine: #[id number] 2% Lidocaine: #[phone]) PRN, Starting on Fri10/10/21 at 1658, Unt il Fri10/10/21 at 1715, Routine, Intraprocedure methylPREDNISolone sod suc(PF) (SOLU-MEDROL) injection (CANCELED ) 1650 (Given - Provider: Jacky Blanchard MD - Comment: #[id number]) PRN, Starting on Fri10/10/21 at 1651, Unt il Fri10/10/21 at 1715, Routine, Intraprocedure naloxone (NARCAN) injection 0.2 mg 0.2 mg, intravenous, PRN, Starting on 10/10/21 at 1710, Until Fri10/10/21 at 2026, Opioid Reversal, Routine, Recovery (only) zmwmrolt-uhslswcbv-pkfktmihiizgt (MAXITROL) ophthalmic ointment (CANCELED) 1651 (Given - Provider: Jacky Blanchard MD) PRN, Starting on Fri10/10/21 at 1652, Until Fri10/10/21 at 1715, I ntraprocedure ondansetron (PF) (ZOFRAN) injection 4 mg 4 mg, intravenous, PRN, 1 dose, Starting on Fri10/10/21 at 1710, Until Fri10/10/21 at 2027, Nausea, Vomiting, Routine, Recovery (only) phenylephrine (MYDFRIN) [...] Provider: Jacky Blanchard MD - Comment: Cefazolin: #[id number] Sterile Water: #[id number]) PRN, Starting on Fri10/10/21 at 1650, Unt il Fri10/10/21 at 1715, Routine, Intraprocedure documented in this encounter Orders Medications Ordered That Might Not Have Count Last Ord ered Date First Ordered Date Been Administered atropine 0.1 mg/mL syringe 0.5 mg 1 10/10/2021 balanced salt solution inrrigation 10/10/2021 solution (BSS PLUS) 500 mL, EPINEPHrine HCl (PF) (ADRENALIN) 0.5 mL irrigation balanced salts (BSS) ophthalmic solution 1 chondroitin-sodium hyaluronate (VISCOAT) 1 ophthalmic solution fentaNYL citrate (PF) injection 25-50 mcg 1 2021 lactated ringers (LR) infusion 1 10/10/2021 lidocaine (PF) 10 mg/mL (1 %) injection 2 1 2021 mg lidocaine 20 mg/mL (2 %) 5 mL, bupivacaine 1 10/10 (PF) (MARCAINE) 0.75 % (7.5 mg/mL) 5 mL methylPREDNISolone sod suc(PF) 1 10/10/2021 (SOLU-MEDROL) injection naloxone (NARCAN) injection 0.2 mg 1 10/10/2021 afhtyvnk-mhdqbrzyx-icxdhdpopkvhh 1 10/10/2021 (MAXITROL) ophthalmic ointment ondansetron (PF) (ZOFRAN) injection 4 mg 1 sterile water (PF) 2.5 mL with ceFAZolin 1 022 (ANCEF) 1 g Nursing Count Last Ordered Date First Ordered Date NURSING COMMUNICATION 5 10/10/2021 Discharge Count Last Ordered Date First Ordered Date DISCHARGE PATIENT 1 10/10/2021 documented in this encounter Care Teams Denial Resolution Specialist Relationship Specialty Start Date End Date Yosi Graham, RPA PCP - General 07/05/16 12/17/[address] [place] [phone] documented as of this encounter
--- OUTSIDE RECORDS SUMMARY | 2022-07-05 02:47 | XMS_ITS | Encounter Summary ---
:1950 Author Organization [facility] Address [address] [place] [address] Care Team Providers Name Role Phone Yosi Graham EDER Primary Care Provider [phone] Reason for Visit Reason Comments Follow-up Encounter Details Date Type Department Care Team Description 12/14/2021 Office Visit [facility] Jacky Blanchard MD Ophthalmology - [address], [address], [address] [place], [place] [address] [place] [address] [phone] (Wo rk) Social History Tobacco Use [...] encounter Progress Notes Jacky Blanchard MD - 12/14/2021 0830 EDT Chief Complaint Patient presents with ??? Follow-up Comments Pt here for 1 month f/u for PVR/TRD right S/P RD repair Gtts:PF QID OD VA stable both eyes. No floaters or flashes. No pain HPI Location: Both eyes Pain: 0 - No pain Quality: Blurry Severity: Moderate Duration: Years Timing: Constant Lasts: Continuous Context: VA stable both eyes. No floaters or flashes. No pain Modifying factors: S/P RD repair right Associated Signs & Symptoms: RD right, PVR/TRD right Visual Fluctuations: None Attestation: Base Eye Exam Visual Acuity (Snellen - Linear) Right Left Dist cc 20/400 20/25 -2 Dist ph cc 20/150 Correction: Glasses Tonometry (Applanation, 8:48) Right Left Pressure 16 22 Neuro/Psych Oriented x3: Yes Mood/Affect: Normal Dilation Right eye: Phenylephrine 2.5%, Tropicamide 1% @ 8:48 Slit Lamp and Fundus Exam Slit Lamp [...] tears 2. Proliferative vitreoretinopathy of right eye Assessment Stable 9 clock hours of PVR+/-TRD over SB anterior to 360 laser barricade??s/p 10/10/2021 PPV, EL, SO for recurrent retinal detachment?? s/p12/??SB,PPV,EL,SF6, STK for VH and RD/RT Sleep on right or left side, avoid sleeping directly on back. Continue PF QID right eye ?? Plan CE+IOL on 12/24/[address] Sampson Re-evaluate PVR-TRD afterwards Then plan SOR vs SO exchange with retinectomy. ?? 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
--- OUTSIDE RECORDS SUMMARY | 2022-07-05 02:47 | XMS_ITS | Encounter Summary ---
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 Procedures MD RPR RETINAL DTCHMNT W/VITRECTOMY ANY METH REPAIR, RETINAL DETACHMENT, WITH VITRECTOMY Referral ID Status Reason Start Date Expiration Date Visits Requ ested Visits Authorized [id number] 1 1 Encounter Details Date Type Department Care Team Description 07/10/2021 Office Visit [facility] Jacky Blanchard MD Ophthalmology - [address] [place], [place] [address] [place] [address] [phone] (Wo rk) Social History Tobacco Use [...] encounter Progress Notes Jacky Blanchard MD - 07/10/2021 1430 EST Chief Complaint Patient presents with ??? Eye Problem Comments ERV - driving on Friday when lost vision right eye like looking thru glass with ice on it. Some flashes and lots of floaters. No pain. 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 HPI Location: Right eye Pain: 0 - No pain Quality: Blurry Severity: Moderate Duration: Days Timing: Constant Lasts: Continuous Context: ERV - driving on Friday when lost vision right eye like looking thru glass with ice on it. Some flashes and lots of floaters. No pain. Modifying factors: Associated Signs & Symptoms: Visual Fluctuations: Floaters Attestation: Base Eye Exam Visual Acuity (Snellen - Linear) Right Left Dist cc 20/300 searching 20/40 -1 Correction: Glasses Tonometry (Applanation, 14:58) Right Left Pressure 21 23 Pupils Pupils Light Shape APD Right PERRL 3 Round None Left PERRL 3 Round None Visual Marcus Right Left Restrictions Total superior temporal, superior nasal deficiencies Extraocular Movement Right Left Full, Ortho Full, Ortho Neuro/Psych Oriented x3: Yes Mood/Affect: Normal Dilation Both eyes: Tropicamide 1%, Phenylephrine 2.5% @ 14:58 Slit Lamp and Fundus Exam External Exam Right Left External Normal Slit Lamp Exam Right Left Lids/Lashes Normal Normal Conjunctiva/Sclera White and quiet White and quiet Cornea Clear Clear Anterior Chamber Deep and quiet Deep and quiet Iris Dilated pupil Round and reactive Lens 1+ Nuclear sclerosis 1+ Nuclear sclerosis Vitreous Hemorrhage Vitreous syneresis Fundus Exam Right Left Disc contour visable Peripapillary atrophy C/D Ratio 0.3 0.3 Macula not visible Normal Vessels arades visible Normal Periphery Temporal detachment with multiple tears, well contained by laser barricade from 7:00 to 12:00. NEW tear IN with fluid, difficult view second to VH, Retinal tuft @ 3:00 Retina attached, no predisposing lesions Please refer to large retinal drawing. IMAGING: DIAGNOSES: 1. Vitreous hemorrhage of right eye (HCC-CMS) (HCC) 2. 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 PVD (posterior vitreous detachment), right eye 4. Vitreous syneresis of left eye Assessment Vitreal heme right eye Likely secondary to new retinal tear +/- detachment in inferonasal quadrant Obscuring detailed view of the reitna Temporal retinal detachment with multiple tears appears to remain contained s/p laser??retinopexy??on 03/21/2020??and 03/28/2020 PVD right eye Offer SB, PPV, EL, gas under general anesthesia right eye to treat tear +/- detachment and reduce risk of vision loss Risks of surgery discussed Patient agrees to surgery We will attempt to schedule surgery on 07/11/2021 ?? Vitreous syneresis left eye Retina attached No predisposing lesions Monitor I have reviewed the past medical, [...] Post-op Visit Ophthalmology Jacky Blanchard MD 111 [facility] 5 [place] [phone] (Wo angel) 07/18/2022 Office Visit Urology Jose Carlos Fisher MD 111 [facility] 5 [place], [place] [phone] (Wo rk) documented as of this encounter Visit Diagnoses Diagnosis Vitreous hemorrhage of right eye (HCC-CM S) (HCC) - Primary Vitreous hemorrhage Retinal detachment of right eye with mul tiple retinal tears PVD (posterior vitreous detachment), rig ht eye Vitreous degeneration Vitreous syneresis of left eye documented in this encounter Orders Case Request Count Last Ordered Date First Ordered Date CASE REQUEST OPERATING ROOM 1 07/10/2021 documented in this encounter Eye Exam Visual Acuity (Snellen - Linear) Right eye Left eye Dist cc 20/300 searching 20/40 -1 Correction: Glasses Tonometry (Applanation, 14:58) Right eye Left eye Pressure 21 23 Pupils Pupils Light Shape APD Right eye PERRL 3 Round None Left eye PERRL 3 Round None Visual Marcus Right eye Left eye Restrictions Total superior temporal, superior nasal deficiencies Extraocular Movement Right eye Left eye Full, Ortho Full, Ortho Neuro/Psych Oriented x3: Yes Mood/Affect: Normal Dilation Both eyes: Tropicamide 1%, Phenylephrine 2.5% @ 14:58 External Exam Right eye Left eye External Normal Slit Lamp Exam Right eye Left eye Lids/Lashes Normal Normal Conjunctiva/Sclera White and quiet White and quiet Cornea Clear Clear Anterior Chamber Deep and quiet Deep and quiet Iris Dilated pupil Round and reactive Lens 1+ Nuclear sclerosis 1+ Nuclear sclerosi s Vitreous Hemorrhage Vitreous syneresis Fundus Exam Right eye Left eye Disc contour visable Peripapillary atroph y C/D Ratio 0.3 0.3 Macula not visible Normal Vessels arades visible Normal Periphery Temporal detachment with multiple Retina attached, no predisposing tears, well contained by laser lesions barricade from 7:00 to 12:00. NEW tear IN with fluid, difficult view second to VH, Retinal tuft @ 3:00 Care Teams Boring Machine Operator Vertical Relationship Specialty Start Date End Date oYsi Graham, RPA PCP - General 07/05/16 12/17/[phone] [address] documented as of this encounter
--- OUTSIDE RECORDS SUMMARY | 2022-07-05 02:47 | XMS_ITS | Encounter Summary ---
:1950 Author Organization [facility] Address [address] [place] [address] Care Team Providers Name Role Phone Yosi Graham [facility] Primary Care Provider [phone] Reason for Visit Reason Comments Post-OP Follow Up Encounter Details Date Type Department Care Team Description 10/11/2021 Post-op Visit [facility] Jacky Blanchard MD Retinal detachment Ophthalmology - Main [address] [place] [address] multiple retinal 111 [facility] (Primary Dx) [place] [address] [address], [place] [phone] (Wo rk) Social History Tobacco Use Types [...] making decisions? documented as of this encounter Patient Instructions Patient InstructionsPriscilla Pate - 10/11/2021 14:00 EST POST-OPERATIVE INSTRUCTIONS IN BRIEF You may wear an eye patch over your eye. You may wear your eyeglasses during the day. You should wear the plastic eye shield over your eye while sleeping for 7 days. Avoid bending, stooping, lifting objects over 15 pounds, or any strenuous activity for one week. Avoid getting water in the eye for one week. Take Tylenol or gently apply ice compresses to the eye to relieve mild discomfort. No tub bathing, swimming or hot tubbing for 1 month. You may shower, but try to avoid getting water directly in the eye. The following position is required after surgery and should be maintained 45 minutes out of each hour: Face down It is common to experience some discomfort immediately after the surgery and for several days afterward. This is primarily related to swelling on the outside of the eye and around the eyelids. A scratchy feeling or occasional sharp pain is normal. Ice compresses gently placed on the swollen areas (ice placed inside a resealable plastic bag works well) reduce the aching and soreness. Tylenol E.S. is also helpful for minor aching. If you have a deep ache or throbbing pain that does not respond to Tylenol or other cmft-icc-fsmqdlkunrf medication, please call Dr Zhu at [phone]. Redness is common and gradually diminishes over time. Some patients may notice a patch of blood on the outside of the eye. This is similar to bruising on the skin and slowly resolves on its own. Visual recovery varies with different types of surgery and the preop problem and may take several weeks to months to occur. If, however, you should experience a sudden loss of vision postop call Tracie Dean or Dr. Mancia immediately at [phone]. You may begin using drops after the patch has been removed. Please wait five minutes between different drops given at the same time. Your drops are listed below: Moxifloxacin 4 times per day right eye Prednisolone 4 times per day right eye Bring all drops with you for each follow-up appointment. If you have any questions or concerns you may call Dr. Blanchard at [phone] and they will be happy to assist you. documented in this encounter Ordered Prescriptions Prescription Sig Dispensed Refills Start Date End Date moxifloxacin (VIGAMOX) 0.5 Place 1 Drop into 10 mL 3 01/14/2022 % ophthalmic solution the right eye 4 times daily. prednisoLONE (PRED FORTE) Place 1 Drop into 10 mL 3 05/202212/25/2021 1 % ophthalmic suspension the right eye 4 times daily. documented in this encounter Progress Notes Jacky Blanchard MD - 10/11/2021 1400 EST Chief Complaint Patient presents with ??? Post-OP Follow Up Comments 1 day s/p RD repair right eye, PPV, Laser, Oil,. Pt denies eye pain. Face down position overnight, slept w/o issue. Headache upon waking. HPI Location: Right eye Pain: 0 - No pain Quality: Blurry Severity: Duration: Days Timing: Constant Lasts: Continuous Context: 1 day s/p RD repair right eye, PPV, Laser, Oil,. Pt denies eye pain. Face down position overnight, slept w/o issue. Headache upon waking. Modifying factors: Associated Signs & Symptoms: Visual Fluctuations: Attestation: Base Eye Exam Visual Acuity (Snellen - Linear) Right Left Dist sc CF at 3' Tonometry (Applanation, 14:20) Right Left Pressure 21 Neuro/Psych Oriented x3: Yes Mood/Affect: Normal Dilation Both eyes: Tropicamide 1%, Phenylephrine 2.5% @ 14:20 Slit Lamp and Fundus Exam Slit Lamp [...] Vessels Normal Normal Periphery Retina attached over SB with 360 laser and PVR @ 6 posterior to buckle barricaded with laser attached no predisposing lesion Please refer to large retinal drawing. IMAGING: DIAGNOSES: 1. 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 Return in about 1 week (around 10/18/2021), or if symptoms worsen or fail to [...] Post-op Visit Ophthalmology Jacky Blanchard MD [address] [phone] (Wo rk) 07/18/2022 Office Visit Urology Jose Carlos Fisher MD [address] [phone] (Wo rk) documented as of this encounter Visit Diagnoses Diagnosis Retinal detachment of right eye with mul tiple retinal tears - Primary documented in this encounter Eye Exam Visual Acuity (Snellen - Linear) Right eye Left eye Dist sc CF at 3' Tonometry (Applanation, 14:20) Right eye Left eye Pressure 21 Neuro/Psych Oriented x3: Yes Mood/Affect: Normal Dilation Both eyes: Tropicamide 1%, Phenylephrine 2.5% @ 14:20 Slit Lamp Exam Right eye Left eye [...] Vessels Normal Normal Periphery Retina attached over SB with 360 laser a nd attached no predisposing lesion PVR @ 6 posterior to buckle barricaded with laser Care Teams Power Checker Relationship Specialty Start Date End Date Yosi Graham RPA PCP - General 07/05/16 12/17/[phone] [address] documented as of this encounter
--- OUTSIDE RECORDS SUMMARY | 2022-07-05 02:47 | XMS_ITS | Encounter Summary ---
:1950 Author Organization [facility] Address [address] [place] [address] Care Team Providers Name Role Phone Sweetie Gonzales Primary Care Provider Encounter Details Date Type Department Care Team Description 01/06/2022 Documentation Visit [facility] Rodríguez Blanchard MD Ophthalmology - [address] [place] [id number] [place] [address] [place] [phone] (Wo rk) Social History Tobacco [...] 07/12/2022 Post-op Visit Ophthalmology Jacky Blanchard MD [address] [place] [address] 5 [place], [place] [phone] (Wo rk) 07/18/2022 Office Visit Urology Jose Carlos Fisher MD 111 [facility], Level 5 [place], [place] [phone] (Wo rk) documented as of this encounter Visit Diagnoses Not on filedocumented in this encounter Care Teams Art Gallery Internship Relationship Specialty Start Date End Date Sweetie Gonzales PCP - General Family Medicine - Primary 12/18/21 04/09/[address] [place] [address] [place] [address] documented as of this encounter
--- OUTSIDE RECORDS SUMMARY | 2022-07-05 02:48 | XMS_ITS | Encounter Summary ---
:1950 Author Organization [facility] Address [address] [place] [address] Care Team Providers Name Role Phone Yosi Graham [facility] Primary Care Provider Reason for Visit Reason Comments Eye Problem Encounter Details Date Type Department Care Team Description 03/21/2020 Office Visit [facility] Jacky Blanchard MD Ophthalmology - [address], [address] [place], [place] [id number] [place] [address] [phone] (Wo rk) Social History Tobacco Use [...] encounter Progress Notes Jacky Blanchard MD - 03/21/2020 1515 EDT Chief Complaint Patient presents with ??? Eye Problem Comments Pt. Here for eye exam as ERV due to RD eval per Dr. Aly of the right eye seen this AM. Pt. States Since Friday blurry vision with floaters, no flashes, no eye pain. Mentions 2 weeks ago or so head impact with chain. Left eye no ocular complaints. No curtain or veil in vision. HPI Location: Right eye Pain: 0 - No pain Quality: Blurry Severity: Moderate Duration: Years Timing: Constant Lasts: Continuous Context: Pt. Here for eye exam as ERV due to RD eval per Dr. Aly of the right eye seen this AM. Pt. States Since Friday blurry vision with floaters, no flashes, no eye pain. Mentions 2 weeks ago or so head impact with chain. Left eye no ocular complaints. No curtain or veil in vision. Modifying factors: DFE Associated Signs & Symptoms: Blurry vision, floaters RD per consult Visual Fluctuations: Floaters Attestation: Base Eye Exam Visual Acuity (Snellen - Linear) Right Left Dist cc 20/40 20/25 +1 Dist ph cc NI Correction: Glasses Tonometry (Applanation, 16:30) Right Left Pressure 12 10 Pupils Dark Light Shape React APD Right 4 3 Round Brisk None Left 3 2 Round Brisk None Right eye dilated the AM Visual Marcus Right Left Full Restrictions Partial outer inferior nasal deficiency Extraocular Movement Right Left Full Full Neuro/Psych Oriented x3: Yes Mood/Affect: Normal Dilation Both eyes: Tropicamide 1%, Phenylephrine 2.5% @ 16:34 Slit Lamp and Fundus Exam Slit Lamp Exam Right Left Lids/Lashes Normal Normal Conjunctiva/Sclera White and quiet White and quiet Cornea Clear Clear Anterior Chamber Deep and quiet Deep and quiet Iris Round and reactive Round and reactive Lens Clear Clear Vitreous Hemorrhage Vitreous syneresis Fundus Exam Right Left Disc Normal Normal Macula flat Normal Vessels no vascular attenuation, no dilation Normal Periphery HST @8, HST with fluid @ 9, 11 no retinal hole, no retinal tear, attached Please refer to large retinal drawing. Destruction of Retinal Lesion, Photocoagulation - OD - Right Eye Time Out Confirmed correct patient, procedure, site, and patient consented. Anesthesia Subconjunctival anesthesia was used. Anesthetic medications included Lidocaine 2%, Proparacaine 0.5%. Laser Information The type of laser was argon. Color was green. The duration in seconds was 0.2. The spot size was 500(CONCEPCION) microns. Laser power was 300. Total spots was 1185. Post-op The patient tolerated the procedure well. There were no complications. Notes Laser barricade applied around anterior retinal detachment with 3 tears from 7:00 to 12:00, anteriorto equator, through CONCEPCION and 20D lens. DIAGNOSES: 1. Retinal detachment of right eye with multiple retinal tears DESTRUCTION OF RETINAL LESION, PHOTOCOAGULATION - OD - RIGHT EYE 2. PVD (posterior vitreous detachment), right eye 3. Vitreous syneresis of left eye Assessment Peripheral retinal detachment anterior to equator, with three retinal tears right eye Discussed alternatives: laser retinopexy barricade in office vs SB, PPV, laser and gas under generalanesthesia in operating room. Given risks of surgery we will attempt to contain the detachment with laser Patient agrees and wishes to proceed with laser today Return in 2 days, afternoon (skip lunch), or sooner PRN PVD with secondary vitreous heme right eye Doubt VH arises from tear Vitreous syneresis left eye I have reviewed the past medical, family, [...] Post-op Visit Ophthalmology Jacky Blanchard MD [address] [phone] (Wo angel) 07/18/2022 Office Visit Urology Jose Carlos Fisher MD 111 [facility] 5 [place] [phone] (Wo angel) documented as of this encounter Procedures Procedure Name Priority Date/Time Associated Comments Diagnosis DESTRUCTION OF RETINAL Routine 03/21/2020 18:11 Retinal detach ment Results for this LESION, PHOTOCOAGULATION EDT of right eye wit h procedure are in - OD - RIGHT EYE multiple retinal the res ults tears section. documented in this encounter Results DESTRUCTION OF RETINAL LESION, PHOTOCOAGULATION - OD - RIGHT EYE (03/21/2020 18:11 EDT) Specimen (Source) Anatomical Location Collection Method / Collectio n Time Received Time / Laterality Volume Narrative [facility] POINT OF CARE - 03/23/2020 17:04 E DT Time Out Confirmed correct patient, procedure, si te, and patient consented. Anesthesia Subconjunctival anesthesia was used. Ane sthetic medications included Lidocaine 2%, Proparacaine 0.5%. Laser Information The type of laser was argon. Color was g reen. The duration in seconds was 0.2. The spot size was 500 (CONCEPCION) microns . Laser power was 300. Total spots was 1185. Post-op The patient tolerated the procedure well . There were no complications. Notes Laser barricade applied around anterior retinal detachment with 3 tears from 7:00 to 12:00, anterior to equator, through CONCEPCION and 20D lens. Jacky Blanchard MD OPHTH CLINIC PROCEDURES Performing Organization Address City/State/ZIP Code Phon e Number [facility] POINT OF CARE documented in this encounter Visit Diagnoses Diagnosis Retinal detachment of right eye with mul tiple retinal tears - Primary PVD (posterior vitreous detachment), rig ht eye Vitreous degeneration Vitreous syneresis of left eye documented in this encounter Eye Exam Visual Acuity (Snellen - Linear) Right eye Left eye Dist cc 20/40 20/25 +1 Dist ph cc NI Correction: Glasses Tonometry (Applanation, 16:30) Right eye Left eye Pressure 12 10 Pupils Dark Light Shape React APD Right eye 4 3 Round Brisk None Left eye 3 2 Round Brisk None Right eye dilated the AM Visual Marcus Right eye Left eye Full Restrictions Partial outer inferior nasal deficiency Extraocular Movement Right eye Left eye Full Full Neuro/Psych Oriented x3: Yes Mood/Affect: Normal Dilation Both eyes: Tropicamide 1%, Phenylephrine 2.5% @ 16:34 Slit Lamp Exam Right eye Left eye Lids/Lashes Normal Normal Conjunctiva/Sclera White and quiet White and quiet Cornea Clear Clear Anterior Chamber Deep and quiet Deep and quiet Iris Round and reactive Round and reactive Lens Clear Clear Vitreous Hemorrhage Vitreous syneresis Fundus Exam Right eye Left eye Disc Normal Normal Macula flat Normal Vessels no vascular attenuation, no dilation Nor mal Periphery HST @8, HST with fluid @ 9, 11 no retina l hole, no retinal tear, attached Care Teams Foundation Assistant Relationship Specialty Start Date End Date Yosi Graham, EDER PCP - General 07/05/16 12/17/[address] [place] [address] documented as of this encounter
--- OUTSIDE RECORDS SUMMARY | 2022-07-05 02:48 | XMS_ITS | Encounter Summary ---
:1950 Author Organization [facility] Address [address] [place] [address] Care Team Providers Name Role Phone Yosi Graham [facility] Primary Care Provider [phone] Encounter Details Date Type Department Care Team Description 03/21/2020 Anesthesia Event [facility] Main D [place] OR Arlene Herring, [address] [place], [place] [address] [place] [address], [place] [phone] (Wo rk) Anesthesia Record Procedure Summary Procedure Name Responsible Anesthesia Start Anesthesia Stop Time Anesthesiologist Time RETINAL DETACH,W/VIT,INCL TAMP/LZ/CRY/DRN/ROJAS S EXC (Right: Eye) Events No events on file. No medications on file. Agents No agents on file. Blood No blood administrations on file. Lines, Drains, and Airways Type Details Placement Removal Wound 02/11/22; Incision; Right; Eye 02/11/22 0000 by Mara Truong RN Wound 05/15/22; 0948; Right; Eye 05/15/22 0948 by Zoie Lara RN documented in this encounter Social History [...] Post-op Visit Ophthalmology Jacky Blanchard MD [address] [phone] (Wo rk) 07/18/2022 Office Visit Urology Jose Carlos Fisher MD [address] [phone] (Wo rk) documented as of this encounter Visit Diagnoses Not on filedocumented in this encounter Care Teams Software Applications Designer Relationship Specialty Start Date End Date Yosi Graham RPA PCP - General 07/05/16 12/17/[address] [place] [address] documented as of this encounter
--- OUTSIDE RECORDS SUMMARY | 2022-07-05 02:48 | XMS_ITS | Encounter Summary ---
:1950 Author Organization [facility] Address [address] [place] [address] Care Team Providers Name Role Phone Yosi Graham [facility] Primary Care Provider [phone] Reason for Visit Reason Comments Follow-up 1 month Encounter Details Date Type Department Care Team Description 11/01/2016 Office Visit [facility] Edward Myers Prost ate cancer ([facility]) (Primary Dx); Urology - Medical MD [place] Family history of prostate cancer Office Building [address] [place] [address] [place] [address], [place] [address] (Wo rk) Social History Tobacco [...] a physical, mental, or emotional condition, No 11/01/2016 does this person have difficulty doing errands alone such as visiting a doctor's office or shopping? Cognitive Status Response Date of Assessment Because of a physical, mental, or emotional condition, No 11/01/2016 does this person have serious difficulty concentrating, remembering, or making decisions? documented as of this encounter Progress Notes Edward Myers MD - 11/01/2016 1545 EDT Subjective: Patient ID: Omar Matthews is an [address] Yosi Graham has requested that I see Omar Matthews in consultation for Follow-up (1 month). VALERIA Bell is here today for follow-up of an elevated PSA. He has a Hx of a rising PSA and 2 brother's with a Hx of CAP. He has been voiding well. He has mild urgency. He has reduced erections. He has a bovine heart valve in placed. He had a TRUS and BX and has a Stage [id number] G6 CAP 11/13 positive all on the left. He has seen Dr Freitas. They have decided to consider Active Surveillance as the primary option. Patient Active Problem List Diagnosis ??? Malignant neoplasm of prostate Past Medical History: Diagnosis Date ??? Cancer ??? Elevated prostate specific antigen (PSA) ??? Family history of malignant neoplasm of prostate ??? Hypertension Past Surgical History: Procedure Laterality Date ??? CARDIAC VALVE REPLACEMENT 12/01/2014 aortic valve replacement Family History Problem Relation Age of Onset ??? Prostate Cancer Brother ??? Prostate Cancer Brother Social Social History Substance Use Topics ??? Smoking status: Never Smoker ??? Smokeless tobacco: Never Used ??? Alcohol use 0.6 oz/week 1 Cans of beer per week Current Outpatient Prescriptions on File Prior to Visit Medication Sig Dispense Refill ??? aspirin (ASPIRIN LOW DOSE) 81 mg EC tablet Take 81 mg by mouth daily. ??? lisinopril (PRINIVIL, ZESTRIL) 10 mg tablet Take 10 mg by mouth daily. ??? metoprolol (LOPRESSOR) 25 mg tablet Take 25 mg by mouth daily. No current facility-administered medications on file prior [...] is normal. Judgment and thought content normal. PSA : 3.7 to 4.9 in 1 year. No visits with results within 1 Day(s) from this visit. Latest known visit with results is: Office Visit on 08/20/2016 Component Date Value Ref Range Status ??? Pathology Report: 08/20/2016 Final Value:SURGICAL PATHOLOGY REPORT Reports generated via electronic interface contain original data; however they are lacking the format of the original report. Caution should be taken when reading/interpreting unformatted reports. Name: OMAR MATTHEWS : 1950 (Age: 66) M Collect Date: 08/20/2016 Location: [facility] Receive Date: 08/20/2016 Provider: EDWARD MYERS MD Copy to: Final Pathologic Diagnosis: SUMMARY OF CORES A (left mid base) 3+3 1/1 27% PN B (left mid mid) 3+3 1/2 16% [3+3 35%; no tumor] C (left mid apex) 3+3 1/3 8% [3+3 25%; no tumor; no tumor] D (left lat base) no tumor E (left lat mid) 3+3 1/2 14% [3+3 20%; no tumor] F (left lat apex) no tumor G (right mid base) DONAL H (right mid mid) no tumor I (right mid apex) no tumor J (right lat base) no tumor K (right lat mid) no tumor L (right lat apex) no tumor (DONAL: atypical small acinar proliferation) (PN: perineural invasion) The overall Irene score for this case is based on the core with the highest Irene score. Irene score can be grouped and range from Prognostic Grade Group I (most favorable) to Prognostic Grade Group V (least favorable). [place] score less than or equal to 6: Prognostic Grade Group I Irene score 3+4=7: Prognostic Grade Group II [place] score 4+3=7: Prognostic Grade Group III [place] score 8: Prognostic Grade Group IV [place] score 9-10: Prognostic Grade Group V References for Prognostic Grade Groups: J Clin Gillespie 2012;30:3836-5856 Renae MOTA. The Irene Grading System (A Complete Guide for Pathologists and Clinicians), LWW, 2013 Marie PM, Nancy PW, Susan AW, Renae JI. Prognostic Irene Grade Groupin g: Data based on the modified [place] scoring system. BJU Int 2013;111:753-760 A. PROSTATE, LEFT MID BASE, NEEDLE CORE BIOPSY (1): - Prostatic adenocarcinoma (one tumor focus in 1 of 1 core). - Histologic grade: 3 + 3 = 6 - Primary Irene pattern: Grade 3 - Secondary [place] pattern: Grade 3 - Total Irene score: 6 - Number of cores positive / total number of cores: 1/1 - Tumor contiguity: Contiguous - Total linear millimeters of prostatic tissue: 16.6 mm - Total linear millimeters of carcinoma: 4.5 mm - Proportion of prostatic tissue involved by tumor: 27% - Perineural invasion: Present - Lymph-vascular involvement: Not identified - Periprostatic fat/extra prostatic tissue invasion: Not identified - Seminal vesicle invasion: Not identified - High-grade prostatic intraepithelial neoplasia (PIN): Not identified - Minute fragments of cryptic colorectal mucosa. B. PROSTATE, LEFT MID MID, NEEDLE CORE BIOPSY (2): - Prostatic adenocarcinoma (one tumor focus in 1 of 2 cores). - Histologic grade: 3 + 3 = 6 - Primary Irene pattern: Grade 3 - Secondary [place] pattern: Grade 3 - Total Irene score: 6 - Number of cores positive / total number of cores: 1/2 - Tumor contiguity: Contiguous (3.0 mm 3+3 tumor in 8.5 mm core; 25% i nvolvement) (no tumor in 11.0 mm core) - Total linear millimeters of prostatic tissue: 19.5 mm (11.0 mm + 8.5 mm) - Total linear millimeters of carcinoma: 3.0 mm - Proportion of prostatic tissue involved by tumor: 16 % - Proportion of prostatic tissue involved by tumor for core with the largest amount of tumor: 35 % - Perineural invasion: Not identified - Lymph-vascular involvement: Not identified - Periprostatic fat/extra prostatic tissue invasion: Not identified - Seminal vesicle invasion: Not identified - High-grade prostatic intraepithelial neoplasia (PIN): Not identified C. PROSTATE, LEFT MID APEX, NEEDLE CORE BIOPSY (3): - Prostatic adenocarcinoma (one tumor focus in 1 of 3 cores). - Histologic grade: 3 + 3 = 6 - Primary [place] pattern: Grade 3 - Secondary [place] pattern: Grade 3 - Total Irene score: 6 - Number of cores positive / total number of cores: 1/3 - Tumor contiguity: Contiguous (1.5 mm 3+3 tumor in 6.0 mm core; 25% involvement) (no tumor in 9.6 mm core) (no tumor in 3.8 mm core) - Total linear millimeters of prostatic tissue: 19.4 mm (9.6 mm + 6.0 mm + 3.8 mm) - Total linear millimeters of carcinoma: 1.5 mm - Proportion of prostatic tissue involved by tumor: 8 % - Proportion of prostatic tissue involved by tumor for core with the largest amount of tumor: 25 % - Perineural invasion: Not identified - Lymph-vascular involvement: Not identified - Periprostatic fat/extra prostatic tissue invasion: Not identified - Seminal vesicle invasion: Not identified - High-grade prostatic intraepithelial neoplasia (PIN): Not identified D. PROSTATE, LEFT LATERAL BASE, NEEDLE CORE BIOPSY (2): - Prostatic glands and stroma with no specific histopathologic features. E. PROSTATE, LEFT LATERAL MID, NEEDLE CORE BIOPSY (2): - Prostatic adenocarcinoma (one tumor focus in 1 of 2 cores). - Histologic grade: 3 + 3 = 6 - Primary Irene pattern: Grade 3 - Secondary Irene pattern: Grade 3 - Total [place] score: 6 - Number of cores positive / total number of cores: 1/2 - Tumor contiguity: Contiguous (1.6 mm 3+3 tumor in 8.0 mm core; 20% involvement) (no tumor in 4.0 mm core) - Total linear millimeters of prostatic tissue: 12.0 mm (8.0 mm + 4.0 mm) - Total linear millimeters of carcinoma: 1.6 mm - Proportion of prostatic tissue involved by tumor: 14 % - Proportion of prostatic tissue involved by tumor for core with the largest amount of tumor: 20 % - Perineural invasion: Not identified - Lymph-vascular involvement: Not identified - Periprostatic fat/extra prostatic tissue invasion: Not identified - Seminal vesicle invasion: Not identified - High-grade prostatic intraepithelial neoplasia (PIN): Not identified F. PROSTATE, LEFT LATERAL AP EX, NEEDLE CORE BIOPSY (3): - Prostatic glands and stroma with no specific histopathologic features. G. PROSTATE, RIGHT MID BASE, NEEDLE CORE BIOPSY (1): - Atypical small acinar proliferation (DONAL). H. PROSTATE, RIGHT MID MID, NEEDLE CORE BIOPSY (1): - Prostatic glands and stroma with focal basal cell hyperplasia. - Minute fragment of colorectal mucosa with no specific histopathologic features. I. PROSTATE, RIGHT MID APEX, NEEDLE CORE BIOPSY (2): - Prostatic glands and stroma with atrophy. J. PROSTATE, RIGHT LATERAL BASE, NEEDLE CORE BIOPSY (2): - Prostatic glands and stroma with no specific histopathologic features. K. PROSTATE, RIGHT LATERAL MID, NEEDLE CORE BIOPSY (2): - Prostatic glands and stroma with no specific histopathologic features. L. PROSTATE, RIGHT LATERAL APEX, NEEDLE CORE BIOPSY (3): - Prostatic glands and stroma with focal atrophy. Document reviewed and electronically signed by: Pastor Odell MD Report Date: 08/24/2016 11:00 By the signature above, the attending physician certifies that he/she has personally conducted a gross and/or microscopic examination of the described specimens and rendered or confirmed the above diagnosis. Specimen(s) Received: A. Left mid base B. Left mid mid C. Left mid apex D. Left lateral base E. Left lateral mid F. Left lateral apex G. Right mid base H. Right mid mid I. Right mid apex J. Right lateral base K. Right lateral mid L. Right lateral apex Clinical History: Elevated PSA; clinical diagnosis code: R97.20, Z80.42 Gross Description: A. Received in formalin labelled with proper patient identification (initials D, J) and left mid base is a single garcia-white tissue core (1.4 cm in length x 0.1 cm in diameter). Submitted intact in A1. B. Received in formalin labelled with proper patient identification (initials D, J) and left mid mid are two garcia-white tissue cores (0.5 cm and 1.0 cm in length, and each 0.1 cm in d iameter). Entirely submitted in B1. C. Received in formalin labelled with proper patient identification (initials D, J) and left mid apex is a single garcia-white tissue core (1.0 cm in length x 0.1 cm in diameter). Submitted intact in C1. D. Received in formalin labelled with proper patient identification (initials D, J) and left lateral base is a single garcia-white tissue core (1.3 cm in length x 0.1 cm in diameter). Submitted intact in D1. E. Received in formalin labelled with proper patient identification (initials D, J) and left lateral mid are two garcia-white tissue cores (0.6 cm and 1.0 cm in length, and each 0.1 cm in diameter). Entirely submitted in E1. F. Received in formalin labelled with proper patient identification (initials D, J) and left lateral apex are two garcia-white tissue cores (0.6 cm and 0.7 cm in length, and each 0.1 cm in diameter). Entirely submitted in F1. G. Received in formalin labelled with proper patient iden tification (initials D, J) and right mid base is a single garcia-white tissue core (1.4 cm in length x 0.1 cm in diameter). Submitted intact in G1. H. Received in formalin labelled with proper patient identification (initials D, J) and right mid mid is a single garcia-white tissue core (1.4 cm in length x 0.1 cm in diameter). Submitted intact in H1. I. Received in formalin labelled with proper patient identification (initials D, J) and right mid apex are two garcia-white tissue cores (0.6 cm and 1.0 cm, and each 0.1 cm in diameter). Entirely submitted in I1. J. Received in formalin labelled with proper patient identification (initials D, J) and right lateral base is a single garcia-white tissue core (1.3 cm in length x 0.1 cm in diameter). Submitted intact in J1. K. Received in formalin labelled with proper patient identification (initials D, J) and right lateral mid are two garcia-white tissue cores (0.6 cm and 0.7 cm in length, and each 0.1 cm in diameter). Entirely submitted in K1. L. Received in formalin labelled with proper patient identification (initials D, J) and right lateral apex are two garcia-white tissue cores (1.0 cm and 1.3 cm in length, and each 0.1 cm in diameter). Entirely submitted in L1. MAYE Walsh (ASCP) 08/20/2016 4:43 PM End of Report PSA: No results found for: PSA BMP: Lab Results Component Value Date CREATININE 1.10 08/20/2016 Prostate TRUS 35 cc prostate Assessment / Plan: 1. Prostate cancer 2. Family history of prostate cancer Stage T2a NXMX CAP G6 CAP. Agree with as his initial choice. He will need : PSA q 3 months for 1 year. Repeat BX in 1 year. Therapy in the event of Bx proven disease progression or patient preference. The patient and I talked at length about treatment options for prostate cancer. Etiologies of prostate cancer were discussed with the patient. Treatment options including radical retropubic prostatectomy, robotic assisted laparoscopic prostatectomy, cryosurgery, external beam radiation therapy, brachytherapy radiation therapy, hormonal therapy, and active surveillance were discussed at length with the patient. The Irene score and amount ofcancer present on the patient's prostate biopsy pathology report was reviewed at length and in detail. Pathological grades of prostate cancer, stages of prostate cancer including organ confined, capsular invasion, locally invasive, local amanda spread, and distant metastatic spread, bony metastatic disease, and others were discussed at length. No orders of the defined types were placed in this encounter. Edward Myers MD documented in this encounter Plan of Treatment Upcoming Encounters Date Type Specialty Care Team Description 07/12/2022 Post-op Visit Ophthalmology Jacky Blanchard MD [address] [phone] (Wo rk) 07/18/2022 Office Visit Urology Edward Myers MD [address] [phone] (Wo rk) documented as of this encounter Visit Diagnoses Diagnosis Prostate cancer (HCC-CMS) (HCC) - Primar y Malignant neoplasm of prostate Family history of prostate cancer Family history of malignant neoplasm of prostate documented in this encounter Care Teams Rotary Shear Worker Helper Relationship Specialty Start Date End Date Yosi Graham RPA PCP - General 07/05/16 12/17/[address] [address] documented as of this encounter
--- OUTSIDE RECORDS SUMMARY | 2022-07-05 02:48 | XMS_ITS | Encounter Summary ---
:1950 Author Organization [facility] Address [address] [place] [address] Care Team Providers Name Role Phone Yosi Graham EDER Primary Care Provider [phone] Reason for Visit Reason Comments Follow-up 3 month PSA, MRI review Encounter Details Date Type Department Care Team Description 04/17/2021 Office Visit [facility] Jose Carlos Fisher Prost ate cancer ([facility]) (Primary Dx); Urology - Medical MD [place] ED (erectile dysfunction) of [facility] Office Building [address] [place] [address] [place] [address], [place] [address] (Wo rk) Social History Tobacco Use Types Packs/Day Years Used Date Smoking Tobacco: Never Smokeless Tobacco: Never Tobacco Cessation: Counseling Given: Yes Alcohol Use Standard Drinks/Week Comments Yes 1 [...] Progress Notes Jose Carlos Fisher MD - 04/17/2021 1015 EDT The concept of ???Telemedicine?? has been described to the patient.? Patient has been informed of the anticipated benefits and possible risks.? Patient understands the information provided regarding telemedicine, has had the opportunity to ask questions about this information, and all questions havebeen answered to patient???s satisfaction. Patient consents for the use of telemedicine in his/her medical care and authorizes the transmission of any relevant medical information to providers and their staff involved in patient???s medical or mental health care. Subjective: Patient ID: Po Matthews is an [address] yun referring provider has requested that I see Po Matthews in consultation for Follow-up (3month PSA, MRI review). HPI He is here today on a telephone visit for follow-up of his Stage [id number] G 6 CAP on . On 08/20/2016 he had 4/12 Bx positive for G6 CAP. A repeat Bx 1 year later demonstrated 5/12 Cores positive for a G6 ( single core >80% , all the remaining were 10% or less) He has 2 brothers with CAP , both treated . He has seen XRT for their input and they agreed with . He has mild urgency. He has reduced erections. He is using Sildenafil 50 mg on demand and it is effective. He has a bovine heart valve in place. He has no changes in his LUT'S. He has not had any imaging studies . He has no new aches or pains. He had a recent MRI of the prostate . MR Prostate : 04/14/2021: IMPRESSION ?? 1. Moderate focal diffusion abnormality left posterior transition zone centered mid gland, 1.4 cm, with mild early enhancement, best classified as PI-RADS 4, clinically significant prostate cancer likely to be present. 2. Probable discogenic changes lower lumbar spine. Patient Active Problem List Diagnosis ??? Malignant neoplasm of prostate (HCC-CMS) ??? 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 PVD (posterior vitreous detachment), right eye ??? Vitreous syneresis of left eye Past Medical History: Diagnosis Date ??? Cancer (HCC-CMS) ??? Elevated prostate specific antigen (PSA) ??? Family history of malignant neoplasm of prostate ??? Hypertension ??? Other states following surgery of eye and adnexa Past Surgical History: Procedure Laterality Date ??? CARDIAC VALVE REPLACEMENT 12/01/2014 aortic valve replacement ??? RETINAL DETACHMENT SURGERY Family History Problem Relation Age of Onset ??? Prostate Cancer Brother ??? Prostate Cancer Brother ??? Macular Degeneration Mother ??? Glaucoma Neg Hx ??? Retinal Detachment Neg Hx Social Social History Tobacco Use ??? Smoking status: Never Smoker ??? Smokeless tobacco: Never Used Substance Use Topics ??? Alcohol use: Yes Alcohol/week: 1.0 standard drink Types: 1 Cans of beer per week ??? Drug use: No Current Outpatient Medications on File Prior to Visit Medication Sig Dispense Refill ??? aspirin (ASPIRIN LOW DOSE) 81 mg EC tablet Take 81 mg by mouth daily. ??? diazePAM (VALIUM) 10 mg tablet One tab 1 hour and then the second 10 minutes before your scheduled appt. (Patient not taking: Reported on 04/17/2021) 2 Tablet 0 ??? lisinopril (PRINIVIL, ZESTRIL) 10 mg tablet Take 10 mg by mouth daily. ??? metoprolol (LOPRESSOR) 25 mg tablet Take 25 mg by mouth daily. ??? pravastatin (PRAVACHOL) 10 mg tablet Take 10 mg by mouth daily. ??? sildenafil citrate (VIAGRA) 100 mg tablet Take 1 Tab by mouth as needed for Erectile Dysfunction. 30 Tab 11 No current facility-administered medications on file prior [...] Range Status ??? Creatinine, Venous, i-STAT 04/14/2021 1.4* 0.7 - 1.3 mg/dL Final ? ? eGFR, Calculated, i-STAT 04/14/2021 51* >60 mL/min/1.73m2 Final eGFR calculated using CKD-EPI for non- Americans. Multiply eGFR by 1.16 for Americanpatients. PSA: 06/2016 : 4.9 04/2017: 3.8 09/23/17 5.9 02/02/18 5.7 06/08/18 5.7 11/21/18 4.8 06/04/19 5.6 12/2019 6.6 06/28/2020 7.1 01/15/21 7.5 04/2021 7.0 No results found for: PSA BMP: Lab Results Component Value Date CREATININE 1.10 08/20/2016 Assessment / Plan: 1. Prostate cancer (HCC-CMS) 2. ED (erectile dysfunction) of organic origin He has a stable MRI and PSA . He has no evidence of disease progression at this time. We reviewed the MRI images today and he has no evidence of any extracapsular disease , etc. His brother has disease progression but I reassure him that he can be followed at this time. He will continue the sildenafil prn. No orders of the defined types were placed in this encounter. Jose Carlos Fisher MD documented in this encounter Plan of Treatment Upcoming Encounters Date Type Specialty Care Team Description 07/12/2022 Post-op Visit Ophthalmology Jacky Blanchard MD [address] [phone] (Wo rk) 07/18/2022 Office Visit Urology Jose Carlos Fisher MD [address] [phone] (Wo rk) documented as of this encounter Visit Diagnoses Diagnosis Prostate cancer (HCC-CMS) (HCC) - Primar y Malignant neoplasm of prostate ED (erectile dysfunction) of organic wilfredo gin Impotence of organic origin documented in this encounter Care Teams Clearing House Clerk Relationship Specialty Start Date End Date Yosi Graham, RPA PCP - General 07/05/16 12/17/[address] [place] [id number] documented as of this encounter
--- OUTSIDE RECORDS SUMMARY | 2022-07-05 02:48 | XMS_ITS | Encounter Summary ---
:1950 Author Organization [facility] Address [address] [place] [id number] Care Team Providers Name Role Phone Yosi Graham [facility] Primary Care Provider [phone] Reason for Visit Reason Comments Follow-up 6 month PSA Encounter Details Date Type Department Care Team Description 07/04/2020 Office Visit [facility] Edward Myers Prost ate cancer ([facility]) (Primary Dx); Urology - Medical MD [facility] (erectile dysfunction) [facility] Office Building [address] [place] [address] [place] [address], [place] [phone] (Wo rk) Social History Tobacco Use Types [...] encounter Progress Notes Edward Myers MD - 07/04/2020 9397 EST The concept of ???Telemedicine?? has been described [...] or mental health care. Subjective: Patient ID: Omar Matthews is an [address] yun referring provider has requested that I see Omar Matthews in consultation for Follow-up (6month PSA). HPI He is here today on a telephone visit for follow-up of his Stage [id number] G 6 CAP on . On 08/20/2016 [...] He has no changes in his LUT'S. Patient Active Problem List Diagnosis ??? Malignant [...] ??? Alcohol use: Yes Alcohol/week: 1.0 standard drinks Types: 1 Cans of beer per week [...] Take 25 mg by mouth daily. ??? sildenafil citrate [...] is normal. Judgment and thought content normal. Phallus : Uncirc, testis , epididymis nml PRATIBHA : Nml tone 30 grams benign No visits with results within 1 Day(s) from this visit. Latest known visit with results is: Office Visit on 06/10/2017 Component Date Value Ref Range Status ??? Pathology Report: 06/10/2017 Final Value:SURGICAL PATHOLOGY REPORT Reports generated via electronic interface contain original data; however they are lacking the format of the original report. Caution should be taken when reading/interpreting unformatted reports. Name: OMAR MATTHEWS : 1950 (Age: 66) M Collect Date: 06/10/2017 Location: [facility] Receive Date: 06/11/2017 Provider: EDWARD MYERS MD Copy to: Final Pathologic Diagnosis: A. PROSTATE, LEFT MID BASE, NEEDLE CORE BIOPSY: - Adenocarcinoma, Irene grade 3+3, in one of one core, involving approximately 60% of the involved core. B. PROSTATE, LEFT MID MID, NEEDLE CORE BIOPSY: - Adenocarcinoma, Irene grade 3+3, in one of one core, involving approximately 60% of the involved core. C. PROSTATE, LEFT MID APEX, NEEDLE CORE BIOPSY: - Adenocarcinoma, G leason grade 3+3, in one of one core, involving approximately 10% of the involved core. D. PROSTATE, LEFT LATERAL BASE, NEEDLE CORE BIOPSY: - Adenocarcinoma, Irene grade 3+3, in one of one core, involving less than 5% of the involved core. - High grade prostatic intraepithelial neoplasia. E. PROSTATE, LEFT LATERAL MID, NEEDLE CORE BIOPSY: - Minute focus of adenocarcinoma, Irene grade 3+3, in one of one core, involving less than 5% of the involved core. F. PROSTATE, LEFT LATERAL APEX, NEEDLE CORE BIOPSY: - Benign prostatic glands and stroma. G. PROSTATE, RIGHT MID BASE, NEEDLE CORE BIOPSY: - Benign prostatic glands and stroma. H. PROSTATE, RIGHT MID MID, NEEDLE CORE BIOPSY: - Benign prostatic glands and stroma. I. PROSTATE, RIGHT MID APEX, NEEDLE CORE BIOPSY: - Benign prostatic glands and stroma. J. PROSTATE, RIGHT LATERAL BASE, NEEDLE CORE BIOPSY: - Adenocarcinoma, [place] grade 3+3, in one of one core, involving less than 5% of the involved core. K. PROSTATE, RIGHT LATERAL MID, NEEDLE CORE BIOPSY: - Minute focus of atypical small acinar proliferation (DONAL). L. PROSTATE, RIGHT LATERAL APEX, NEEDLE CORE BIOPSY: - Benign prostatic glands and stroma. Document reviewed and electronically signed by: BINH CARROLL MD Report Date: 06/13/2017 12:55 By the signature above, the attending physician [...] mid L. Right lateral apex Clinical History: Prostate cancer; clinical diagnosis code: C61 Gross Description: A. Received in formalin labelled with proper patient identification (initials D, J) and le ft mid base is a garcia-white tissue core (1.8 cm in length x 0.1 cm in diameter). Submitted intact in A1. B. Received in formalin labelled with proper patient identification (initials D, J) and left mid mid is a garcia-white tissue core (1.9 cm in length x 0.1 cm in diameter). Submitted intact in B1. C. Received in formalin labelled with proper patient identification (initials D, J) and left mid apex is a garcia-white tissue core (1.5 cm in length x 0.1 cm in diameter). Submitted intact in C1. D. Received in formalin labelled with proper patient identification (initials D, J) and left lateral base is a garcia-white tissue core (2.5 cm in length x 0.1 cm in diameter). Submitted intact in D1. E. Received in formalin labelled with proper patient identification (initials D, J) and left lateral mid is a garcia-white tissue core (1.6 cm in length x 0.1 cm in diameter). Submitted intact in E1. F. Received in formalin labelled with proper patient humberto ntification (initials D, J) and left lateral apex are two garcia-white tissue cores (0.6 cm and 1.6 cm in length, and each 0.1 cm in diameter). Entirely submitted in F1. G. Received in formalin labelled with proper patient identification (initials D, J) and right mid base is a garcia-white tissue core (1.4 cm in length x 0.1 cm in diameter). Submitted intact in G1. H. Received in formalin labelled with proper patient identification (initials D, J) and right mid mid is a garcia-white tissue core (2.1 cm in length x 0.1 cm in diameter). Submitted intact in H1. I. Received in formalin labelled with proper patient identification (initials D, J) and right mid apex is a garcia-white tissue core (1.4 cm in length x 0.1 cm in diameter). Submitted intact in I1. J. Received in formalin labelled with proper patient identification (initials D, J) and right lateral base is a garcia-white tissue core (2.5 cm in length x 0.1 cm in diameter). Submitted intact in J1 . K. Received in formalin labelled with proper patient identification (initials D, J) and right lateral mid is a garcia-white tissue core (2.5 cm in length x 0.1 cm in diameter). Submitted intact in K1. L. Received in formalin labelled with proper patient identification (initials D, J) and right lateral apex are two garcia-white tissue cores (0.7 cm and 0.9 cm in length, and each 0.1 cm in diameter). Entirely submitted in L1. MAYE Moore (ASC) 06/11/2017 9:38 AM End of Report PSA: 06/2016 : 4.9 04/2017: 3.8 09/23/17 5.9 02/02/18 5.7 06/08/18 5.7 11/21/18 4.8 06/04/19 5.6 12/2019 6.6 06/28/2020 7.1 No results found for: PSA BMP: Lab Results Component Value Date CREATININE 1.10 08/20/2016 Assessment / Plan: 1. Prostate cancer (HCC-CMS) 2. ED (erectile dysfunction) of organic origin He has a rise in his PSA but the velocity is low and overall minimal. Discussed that we could get a MRI of the prostate or perform a repeat BX. He will return in 6 months for a PSA and he will continue on . He as been by XRT and this may be his best option if he decides to proceed. He is currently favoring a seed implant. Both of his brothers chose XRT. He will continue the sildenafil prn. No orders of the defined types were placed in this encounter. Edward Myers MD documented in this encounter Plan of Treatment Upcoming Encounters Date Type Specialty Care Team Description 07/12/2022 Post-op Visit Ophthalmology Jacky Blanchard MD 111 [facility] 5 [place], [place] [phone] (Wo rk) 07/18/2022 Office Visit Urology Edward Myers MD [address] [phone] (Wo rk) documented as of this encounter Visit Diagnoses Diagnosis Prostate cancer (HCC-CMS) (HCC) - Primar y Malignant neoplasm of prostate ED (erectile dysfunction) of organic wilfredo gin Impotence of organic origin documented in this encounter Discontinued Medications Medication Sig Discontinue Reason Start Date End Date ciprofloxacin HCl Take 1 tablet by Therapy completed 05/02/2017 1 09/04/2019 (CIPRO) 500 mg tablet mouth night before Then 1 tablet by mouth morning of procedure Then take 1 tablet by mouth every 12 hours until gone documented as of this encounter Care Teams Associate Professor Of Philosophy Relationship Specialty Start Date End Date Yosi Graham, RPA PCP - General 07/05/16 12/17/[address] [address] documented as of this encounter
--- OUTSIDE RECORDS SUMMARY | 2022-07-05 02:48 | XMS_ITS | Encounter Summary ---
:[address] [facility] Address [address] [place] [address] Care Team Providers Name Role Phone Yosi Graham [facility] Primary Care Provider [phone] Reason for Visit Reason Comments Prostate Cancer Consult (Routine) - Closed Specialty Diagnoses / Procedures Referred By Contact Refer red To Contact Radiation Oncology Diagnoses Prostate cancer ([facility]) ([facility]) Jose Carlos Fisher, Juan Daniel Sierra MD III, MD [address] [facility], [facility], [facility] Pavilion, Level [address] Pavilion, Level [address] [place] [phone] Fax: Referral ID Status Reason Start Date Expiration Date Visits V isits Requested Authorized [id number] Closed Specialty 08/30/2016 1 1 Services Required Encounter Details Date Type Department Care Team Description 09/11/2016 Office Visit [facility] Juan Daniel Freitas neoplasm of Radiation Oncology - Po CONROY MD prostate ([facility]) [address] (Primary Dx) [address] [place] [address], [place] [phone] Pavilion, Level [address] [place] [address] (Wo rk) Social History Tobacco [...] - Inhaled Oxygen Concentration - - Weight 95.1 kg (209 lb 9.6 oz) 09/11/2016 0846 EST Height - - Body Mass Index 33.83 07/08/2016 1559 EST documented in this encounter Functional Status Functional Status Response Date of Assessment Because of a physical, mental, or emotional condition, No 08/30/2016 does this person have difficulty doing errands alone such as visiting a doctor's office or shopping? Cognitive Status Response Date of Assessment Because of a physical, mental, or emotional condition, No 08/30/2016 does this person have serious difficulty concentrating, remembering, or making decisions? documented as of this encounter Consult Notes Rogerio Freitas III, MD - 09/11/2016 0900 ESTAssociated Order(s): AMB CONS/FOLLOW UP RADIATION ONCOLOGY Division of Radiation Oncology CONSULT NOTE DATE OF SERVICE: 09/11/2016 This patient is being seen as a consultation from Dr. Fisher. Primary Site, Histopathology and Stage: [id number], PSA 4.9, [place] score 3 + 3 = 6 adenocarcinoma of the prostate. HPI: Mr. Matthews is a 66 year old man with a history of hypertension and an aortic valve replacement witha positive family history of prostate cancer (two brothers) who was found to have a modestly elevated PSA of 4.9 on May 18, 2016. He was evaluated by Dr. Fisher who noted some diffuse firmness of the gland without distinct nodularity on examination. He underwent transrectal ultrasound-guided prostate biopsies on August 20, 2016. The prostate volume was estimated at 35 cm??. There was some mild diffuse hypoechoic changes identified throughout the gland. On pathologic review here Irene score 3+3 disease in 4/12 core biopsies, one from the left base, one from left apex in both cores from the left mid gland. Mr. Matthews states that he has modest urinary symptoms including some daytime frequency and urinary urgency, his IPSS is 9. Since his biopsy he has had some bowel irregularity but as a baseline his bowel habits are fairly normal. He has erectile dysfunction. He has no localizing bone pain. His appetite and energy are good. He has met with Dr. Fisher and is seen today to discuss the potential role ofradiation therapy in his disease. Overall problems with urinary function: No problem Describe urinary control: Total control - 0 Pads/adult diapers used daily for urinary leakage: None - 0 Problems with urinary dripping/leakage: No problem - 0 Urinary Incontinence Symptom Score: 0 Pain or burning with urination: No problem - 0 Weak urine stream/incomplete bladder emptying: Very small problem - 1 Need to urinate frequently: Small problem - 2 Urinary Irritation/Obstruction Symptom Score: 3 Rectal pain/urgency of bowel movements: Small problem - 2 Increased frequency of bowel movements: Small problem - 2 Overall problems with bowel habits: No problem - 0 Bowel Symptom Score: 4 Ability to reach orgasm (climax): Poor - 3 Describe usual quality of erections: Not firm enough for any sexual activity - 2 Problems or lack of sexual function: Moderate problem - 3 Sexual Symptom Score : 8 Hot flashes or breast tenderness/enlargement: No problem - 0 Feeling depressed: No problem - 0 Lack of energy: Very small problem - 1 Vitality/Hormonal Symptom Score: 1 Total EPIC-CP score - 16 Past Medical History: Diagnosis Date ??? Cancer ??? Elevated prostate specific antigen (PSA) ??? Family history of malignant neoplasm of prostate ??? Hypertension Past Surgical History: Procedure Laterality Date ??? CARDIAC VALVE REPLACEMENT 12/01/2014 aortic valve replacement Social History: He is and lives in [place]. 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 Substance Use Topics ??? Smoking status: Never Smoker ??? Smokeless tobacco: Never Used ??? Alcohol use 0.6 oz/week 1 Cans of beer per week Family History Problem Relation Age of Onset ??? Prostate Cancer Brother ??? Prostate Cancer Brother Current Outpatient Prescriptions Medication Sig Dispense Refill ??? aspirin (ASPIRIN LOW DOSE) 81 mg EC tablet Take 81 mg by mouth daily. ??? lisinopril (PRINIVIL, ZESTRIL) 10 mg tablet Take 10 mg by mouth daily. ??? metoprolol (LOPRESSOR) 25 mg tablet Take 25 mg by mouth daily. No current facility-administered medications for this visit. No Known Allergies Review of Systems Reviewed in detail on our intake sheet today. He has no pertinent positives on extensive review of systems other than as described above. Objective: Weight : 95.1 kg (209 lb 9.6 oz) Pain Score: 0 - No pain General: Very pleasant and cooperative man in no acute distress. HEENT: Unremarkable. Neck: Supple. Nodes: No palpable cervical, supra-clavicular or axillary adenopathy. Back: Nontender to percussion. Lungs: Clear to auscultation. Heart: Regular rhythm. Abdomen: Soft, nontender with normoactive bowel sounds. No palpable masses or organomegaly. Extremities: Without edema. Assessment: Mr. Matthews presents with low-risk prostate cancer. I outlined for him a number of potential treatment options including active surveillance, definitive radiation therapy which could involve external beam radiation therapy or prostate seed brachytherapy as well as the other potential options for therapy including a definitive surgical approach. I described in great detail a standard active surveillance program that includes routine PSA evaluations and repeat biopsies within the first year and at variable intervals thereafter as well as close clinical followup. The potential risks of this approach including delayed intervention if in fact he has a higher grade and high risk disease was discussed and put into perspective. I did inform him that the likelihood that he will of his prostate cancer within the next 5 years is expected to be less than 1% without any intervention. I discussed the potential role of definitive prostate seed brachytherapy. The utilization of a volume study, the development of a 3-dimensional model of his prostate gland for treatment planning systemto allow us to preplanning implant in the implant process itself was described in great detail. The likelihood of postoperative discomfort, difficulty urination and the high likelihood of delayed increased urinary symptomatology typically 1-6 months after the implant was described. The potential for significant urinary outflow symptomatology requiring temporary urinary catheterization was discussed. The potential long- term side effects of brachytherapy including urethral stricture, rectal bleeding/radiation proctitis, hematuria and erectile dysfunction were described. The unlikely but occasionally seen development of fistulas requiring surgical intervention was also described. I described in detail a standard course of definitive external beam radiation therapy. The utilization of image guided and intensity modulated radiation therapy techniques was described. A standard course of treatment lasting approximately 8 weeks' time as well as a more recently developed 4 week course of treatment was described with potential side effects including in the short- term skin erythema, hair loss in the treatment field, fatigue, decreased blood cell count, bowel and bladder irritation symptoms were all put in in perspective. Potential long-term complications including urethral stricture, rectal bleeding/radiation proctitis, hematuria and erectile dysfunction were all discussed. Recommendation: At this point Mr. Matthews seems most interested in an active surveillance approach and I did supportthis decision. He tells me he has a follow-up appointment scheduled with Dr. Fisher. I have not scheduled him to return to see me but told him I be very happy to see him at any time in the future should the need or any questions arise. Rogerio Freitas III, MD This note has been prepared with voice recognition software. Please excuse film spooler errors. documented in this encounter Plan of Treatment Upcoming Encounters Date Type Specialty Care Team Description 07/12/2022 Post-op Visit Ophthalmology Jacky Blanchard MD [address] [phone] (Wo rk) 07/18/2022 Office Visit Urology Jose Carlos Fisher MD [address] [phone] (Wo rk) documented as of this encounter Visit Diagnoses Diagnosis Malignant neoplasm of prostate (HCC-CMS) (HCC) - Primary Malignant neoplasm of prostate documented in this encounter Discontinued Medications Medication Sig Discontinue Reason Start Date End Date ciprofloxacin HCl (CIPRO) One twice a day 07/08/2016 09/11/2016 500 mg tablet starting the evening before the BX. SAW PALMSUJATHAO ORAL Take 900 mg by 09/11/19 17 mouth daily. Reported on 09/11/2016 documented as of this encounter Care Teams Closing Agent Relationship Specialty Start Date End Date Yosi Graham RPA PCP - General 07/05/16 12/17/[address] [address] documented as of this encounter
--- OUTSIDE RECORDS SUMMARY | 2022-07-05 02:48 | XMS_ITS | Encounter Summary ---
:1950 Author Organization [facility] Address [address] [place] [id number] Care Team Providers Name Role Phone Yosi Graham [facility] Primary Care Provider [phone] Encounter Details Date Type Department Care Team Description 05/27/2019 Orders Only [facility] Jose Carlos Fisher [facility] cancer Urology - Jos Sierra MD ([facility]) (Primary Office Building [address] [place] [address]) 7[address] [facility] [address] [place] [address] (Wo rk) Social History Tobacco [...] Post-op Visit Ophthalmology Jacky Blanchard MD [address] [place] [address], [facility] 5 [place], [place] [phone] (Wo rk) 07/18/2022 Office Visit Urology Jose Carlos Fisher MD 111 [place] [facility], [facility] 5 [place], [place] [phone] (Wo rk) documented as of this encounter Visit Diagnoses Diagnosis Prostate cancer (HCC-CMS) (HCC) - Primar y Malignant neoplasm of prostate documented in this encounter Care Teams Federal Appellate Clerk Relationship Specialty Start Date End Date Yosi Graham RPA PCP - General 07/05/16 12/17/[address] [place] [phone] documented as of this encounter
--- OUTSIDE RECORDS SUMMARY | 2022-07-05 02:48 | XMS_ITS | Encounter Summary ---
:1950 Author Organization [facility] Address [address] [place] [address] Care Team Providers Name Role Phone SantosYosi [facility] Primary Care Provider [phone] Reason for Visit Reason Comments Biopsy Results Prostate Biopsy on 06/10/17, Path Encounter Details Date Type Department Care Team Description 06/23/2017 Office Visit [facility] Edward Myers Prost ate cancer ([facility]) ([facility]) (Primary Dx); Urology - Medical MD Rigo Family history of prostate cancer Office Building [address] [place] [address] [place] [address], [place] [phone] (Wo rk) Social History Tobacco Use Types [...] a physical, mental, or emotional condition, No 06/23/2017 does this person have difficulty doing errands alone such as visiting a doctor's office or shopping? Cognitive Status Response Date of Assessment Because of a physical, mental, or emotional condition, No 06/23/2017 does this person have serious difficulty concentrating, remembering, or making decisions? documented as of this encounter Progress Notes Edward Myers MD - 06/23/2017 1300 EST Subjective: Patient ID: Omar Matthews is an [address] Yosi Graham has requested that I see Omar Matthews in consultation for Biopsy Results (Prostate Biopsy on 06/10/17, Path). HPI He is here today for follow-up of his Stage [id number] G 6 CAP on . He had / Bx positive for G6 CAP . He has 2 brothers with CAP , both treated . He had a recent repeat Bx. He has mild urgency. He has reduced erections. He has a bovine heart valve in placed. He has seen XRT and has decided of . He had a recent repeat Bx 1 week ago. Patient Active Problem List Diagnosis ??? Malignant neoplasm of prostate (CMS-HCC) Past Medical History: Diagnosis Date ??? Cancer (CMS-HCC) ??? Elevated prostate specific antigen (PSA) ??? [...] Take 81 mg by mouth daily. ??? ciprofloxacin HCl (CIPRO) 500 mg tablet Take 1 tablet by mouth night before Then 1 tablet by mouth morning of procedure Then take 1 tablet by mouth every 12 hours until gone (Patient not taking: Reported on 06/23/2017) 7 Tab 0 ??? lisinopril (PRINIVIL, ZESTRIL) 10 mg [...] (Age: 66) M Collect Date: 06/10/2017 Location: [facility] Receive Date: 06/11/2017 Provider: EDWARD MYERS MD Copy to: Final Pathologic Diagnosis: A. PROSTATE, LEFT MID BASE, NEEDLE CORE BIOPSY: - Adenocarcinoma, [employer] grade 3+3, in one of one core, involving approximately 60% of the involved core. B. PROSTATE, LEFT MID MID, NEEDLE CORE BIOPSY: - Adenocarcinoma, [employer] grade 3+3, in one of one core, [...] LATERAL BASE, NEEDLE CORE BIOPSY: - Adenocarcinoma, [employer] grade 3+3, in one of one core, [...] diameter). Entirely submitted in L1. MAYE Moore ([facility]) 06/11/2017 9:38 AM End of Report PSA: 06/2016 : 4.9 04/2017: 3.8 No results found for: PSA BMP: Lab Results Component Value Date CREATININE 1.10 08/20/2016 Assessment / Plan: 1. Prostate cancer ([facility]) 2. Family history of prostate cancer His repeat Bx demonstrated no progression in his Irene Score. He has variability in the amount of positive cores and a 5th Bx that was positive. He will continue on . He will return in 4 months PSA 4 months No orders of the defined types were placed in this encounter. Edward Myers MD documented in this encounter Plan of Treatment Upcoming Encounters Date Type Specialty Care Team Description 07/12/2022 Post-op Visit Ophthalmology Jacky Blanchard MD [address] [phone] (Wo rk) 07/18/2022 Office Visit Urology Edward Myers MD [address] [phone] (Wo rk) documented as of this encounter Visit Diagnoses Diagnosis Prostate cancer (HCC-CMS) (HCC) - Primar y Malignant neoplasm of prostate Family history of prostate cancer Family history of malignant neoplasm of prostate documented in this encounter Care Teams Wind Turbine Performance Engineer Relationship Specialty Start Date End Date Yosi Graham RPA PCP - General 07/05/16 12/17/[address] [place] [phone] documented as of this encounter
--- OUTSIDE RECORDS SUMMARY | 2022-07-05 02:48 | XMS_ITS | Encounter Summary ---
:1950 Author Organization [facility] Address [address] [place] [address] Care Team Providers Name Role Phone Yosi Graham [facility] Primary Care Provider [phone] Reason for Visit Reason Onset Date Comments Appointment Related 03/24/2020 Encounter Details Date Type Department Care Team Description 03/24/2020 Telephone [facility] Jacky Blanchard MD Appointment Related Ophthalmology - [address] [place] [address] [place], [place] [phone] (Wo rk) Social History Tobacco Use Types [...] Notes Telephone Encounter - Ann-Marie Merlos - 03/24/2020 0950 EDT Lmom for pt to call back and schedule next appt. Reminder has been placed documented in this encounter Plan of Treatment Upcoming Encounters Date Type Specialty Care Team Description 07/12/2022 Post-op Visit Ophthalmology Jacky Blanchard MD 111 [facility] 5 [place], [place] [phone] (Wo rk) 07/18/2022 Office Visit Urology Jose Carlos Fisher MD [address] [phone] (Wo rk) documented as of this encounter Visit Diagnoses Not on filedocumented in this encounter Care Teams Retail Sales Assistant Relationship Specialty Start Date End Date Yosi Graham, EDER PCP - General 07/05/16 12/17/[address] [place] [address] documented as of this encounter
--- OUTSIDE RECORDS SUMMARY | 2022-07-05 02:48 | XMS_ITS | Encounter Summary ---
:1950 Author Organization [facility] Address [address] [place] [address] Care Team Providers Name Role Phone Yosi Graham [facility] Primary Care Provider [phone] Reason for Referral Radiology Services (Routine) - Authorization Not Required Specialty Diagnoses / Procedures Referred By Contact Refer red To Contact Radiology Diagnoses Prostate cancer ([facility]) ([facility]) Jose Carlos Fisher MD Procedures MR PROSTATE W WO CONTRAST [address] [phone] Referral ID Status Reason Start Expiration Visits Visits Date Date Requested Authorized [id number] Authorization Not 01/16/2021 1 1 Required Reason for Visit Radiology Services (Routine) - Authorization Not Required Specialty Diagnoses / Procedures Referred By Contact Refer red To Contact Radiology Diagnoses Prostate cancer ([facility]) ([facility]) Jose Carlos Fisher MD Procedures MR PROSTATE W WO CONTRAST [address] [phone] Referral ID Status Reason Start Expiration Visits Visits Date Date Requested Authorized [id number] Authorization Not 01/16/2021 1 1 Required Encounter Details Date Type Department Care Team Description 04/14/2021 Hospital Encounter [facility] Prostat e cancer Radiology MRI - Main ([facility]) [place] [address] [place] [address] Social History Tobacco Use Types Packs/Day Years [...] by mouth 0 25 mg tablet daily. diazePAM (VALIUM) 10 mg One tab 1 hour and 2 Tablet 0 01/0207/11/2021 tablet then the second 10 minutes before your scheduled appt. lisinopril (PRINIVIL, Take 10 mg by mouth [...] Post-op Visit Ophthalmology Jacky Blanchard MD [address] [phone] (Wo angel) 07/18/2022 Office Visit Urology Jose Carlos Fisher MD [address] [phone] (Wo angel) documented as of this encounter Procedures Procedure Name Priority Date/Time Associated Diagnosis Comme nts MR PROSTATE W WO Routine 04/14/2021 8:48 EDT Prostate cancer R esults for this CONTRAST ([facility]) procedure are i n the results section. POCT CREATININE, Routine 04/14/2021 7:53 EDT Resu lts for this ISTAT procedure are i n the results section. documented in this encounter Results MR PROSTATE W WO CONTRAST (04/14/2021 8:48 EDT) Anatomical Region Laterality Modality Body, Pelvis Magnetic Resonance Specimen (Source) Anatomical Collection Method Collection Time Re ceived Time Location / / Volume Laterality 04/16/2021 15:30 EDT Impressions 04/16/2021 15:30 EDT 1. Moderate focal diffusion abnormality left posterior transition zone centered mid gland, 1.4 cm, with mild early enhancement, best classified as PI-RADS 4, clinically significant prostate cancer likely to be present. 2. Probable discogenic changes lower lum bar spine. Narrative 04/16/2021 15:30 EDT MR PROSTATE W WO CONTRAST ??04/14/2021 7:30 AM Clinical history/Comments: Evaluate for disease progression Comparison: None Technique: Multiplanar and multiparametric MR seque nces of the pelvis were performed prior to and after intravenous administration of contrast. ?? Findings: Prostate: Volume: 4.5 x 3.5 x 4 cm for calculated volume 32 mL T1-weighted imaging: No concerning T1 si gnal. Transition Zone: Heterogeneous T2 signal without concerning focal T2 signal. Peripheral Zone: Moderate abnormal focal diffusion signal along the posterior aspect of the left transition zone mid gland to base, measuring 1.4 cm transverse on ADC map 256. This shows mild relative e kush enhancement. No obvious correlate o n T2 imaging, which shows mildly reduced T2 signal throughout the peripheral zone. Seminal vesicles: Normal, fluid-filled Extracapsular extension: None Neurovascular bundle invasion: None Bladder: No significant finding Lymph nodes: No pelvic adenopathy. Bones: Areas of increased enhancement ad jacent to disc spaces lumbar spine, probably secondary to Schmorl's nodes, these findings are only included postcontrast wide-field axial images. Small herniation pit noted anterior right proximal femur. Incidental Findings: ?? None Procedure Note Reese Moreno MD - 04/16/2021Fo rmatting of this note might be different from the original. MR PROSTATE W WO CONTRAST 04/14/2021 7:30 AM Clinical history/Comments: Evaluate for disease progression Comparison: None Technique: Multiplanar and multiparametric MR seque nces of the pelvis were performed prior to and after intravenous administration of contrast. Findings: Prostate: Volume: 4.5 x 3.5 x 4 cm for calculated volume 32 mL T1-weighted imaging: No concerning T1 si gnal. Transition Zone: Heterogeneous T2 signal without concerning focal T2 signal. Peripheral Zone: Moderate abnormal focal diffusion signal along the posterior aspect of the left transition zone mid gland to base, measuring 1.4 cm transverse on ADC map 256. This shows mild relative early enhancement. No obvious correlate on T2 imaging, which shows mildly reduced T2 signal throughout the peripheral zone. Seminal vesicles: Normal, fluid-filled Extracapsular extension: None Neurovascular bundle invasion: None Bladder: No significant finding Lymph nodes: No pelvic adenopathy. Bones: Areas of increased enhancement ad jacent to disc spaces lumbar spine, probably secondary to Schmorl's nodes, these findings are only included postcontrast wide-field axial images. Small herniation pit noted anterior right proximal femur. Incidental Findings: None IMPRESSION 1. Moderate focal diffusion abnormality left posterior transition zone centered mid gland, 1.4 cm, with mild early enhancement, best classified as PI-RADS 4, clinically significant prostate cancer likely to be present. 2. Probable discogenic changes lower lum bar spine. Jose Carlos Fisher MD IMG MRI ORDERABLES (ABNORMAL) POCT CREATININE, ISTAT (04/14/2021 7:53 EDT) athologist Signature Creatinine, 1.4 (H) 0.7 - 1.3 04/14/2021 [facility] Venous, i-STAT mg/dL 8:08 EDT [facility] eGFR, 51 (L) >60 04/14/2021 [facility] Calculated, mL/min/1.7 8:08 T CENTER i-STAT 3m2 LAB[facility] Comment: eGFR calculated using CKD-EPI f or non- Americans. Multiply eGFR by 1.16 for patients. Specimen Anatomical Collection Method Collection Time Receive d Time (Source) Location / / Volume Laterality Blood VENOUS BLOOD / 04/14/2021 7:53 04/14/2021 8:08 Unknown EDT EDT Narrative [facility] - 04/14/2021 8:08 EDT Test Performed by Radiology Imaging Provider Unknown MD POINT OF CARE TEST ORDERABLE S Performing Organization Address City/State/ZIP Code Phon e Number [facility] [address] [place] [address] SERVICES documented in this encounter Visit Diagnoses Diagnosis Prostate cancer (HCC-CMS) (HCC) Malignant neoplasm of prostate documented in this encounter Administered Medications Inactive Administered Medications - up to 3 most recent administrations Medication Order MAR Action Action Date Dose Rate Site gadoterate meglumine solution 20 mL Given 04/14/2021 8:42 EDT 19 mL 20 mL, intravenous, Once in imaging, 1 dose, Starting on 04/14/21 at 0740, Until 04/14/21 at 0842, Routine documented in this encounter Orders Medications Ordered That Might Not Have Count Last Ord ered Date First Ordered Date Been Administered gadoterate meglumine solution 20 mL 1 04/14/2021 documented in this encounter Care Teams Cnc Mill Operator Relationship Specialty Start Date End Date Yosi Graham RPA PCP - General 07/05/16 12/17/[address] [place] [address] documented as of this encounter
--- OUTSIDE RECORDS SUMMARY | 2022-07-05 02:48 | XMS_ITS | Encounter Summary ---
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 documented as of this encounter Discharge Diagnoses Diagnosis N52.9 Male erectile dysfunction, unspeci fied-N52.9[ICD-10-CM] C61 Malignant neoplasm of prostate-C61[I CD-10-CM] documented in this encounter Discharge Disposition Disposition Code Departure Means Destination Auto Discharge documented in this encounter Progress Notes Edward Myers MD, - 12/21/2018 0915 EDT Subjective: Patient ID: Omar Matthews is an [address] Yosi Graham has requested that I see Omar Matthews in consultation for Follow-up (6 month, PSA). HPI He is here today for follow-up of his Stage [id number] G 6 CAP on . On 08/20/2016 [...] has a bovine heart valve in place. Patient Active Problem List Diagnosis ??? Malignant neoplasm of prostate (HCC-CMS) Past Medical History: Diagnosis Date ??? Cancer (HCC-CMS) ??? Elevated prostate specific antigen (PSA) ??? Family history of malignant neoplasm of prostate ??? Hypertension Past Surgical History: Procedure Laterality Date ??? CARDIAC VALVE REPLACEMENT 12/01/2014 aortic valve replacement Family History Problem Relation Age of Onset ??? Prostate Cancer Brother ??? Prostate Cancer Brother Social Social History Tobacco Use ??? Smoking status: Never Smoker ??? Smokeless tobacco: Never Used Substance Use Topics ??? Alcohol use: Yes Alcohol/week: 0.6 oz Types: 1 Cans of beer per week [...] is normal. Judgment and thought content normal. PRATIBHA : firm through out No visits with results within 1 Day(s) [...] (Age: 66) M Collect Date: 06/10/2017 Location: [facility] Receive Date: 06/11/2017 Provider: EDWARD MYERS MD Copy to: Final Pathologic Diagnosis: A. 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 B. PROSTATE, LEFT MID MID, NEEDLE CORE BIOPSY: - Adenocarcinoma, [employer] grade 3+3, in one of one core, [...] BASE, NEEDLE CORE BIOPSY: - Adenocarcinoma, [employer] grade 3+3, in one of one core, [...] diameter). Entirely submitted in L1. MAYE Moore ([facility]) 06/11/2017 9:38 AM End of Report PSA: 06/2016 : 4.9 04/2017: 3.8 09/23/17 5.9 02/02/18 5.7 06/08/18 5.7 11/21/18 4.8 No results found for: PSA BMP: Lab Results Component Value Date CREATININE 1.10 08/20/2016 Assessment / Plan: 1. ED (erectile dysfunction) of organic origin 2. Prostate cancer (HCC-CMS) He has no convincing evidence of disease progression. He will return in 6 months for a PSA and he will continue on . He as been by XRT and this may be his best option if he decides to proceed. He is currently favoring a seed implant. Both of his brothers chose XRT. He will continue the sildenafil prn. We will at this time continue with . No orders of the defined types were placed in this encounter. Edward Myers MD documented in this encounter Plan of Treatment Upcoming Encounters Date Type Specialty Care Team Description 07/12/2022 Post-op Visit Ophthalmology Jacky Blanchard MD [address] [facility] 5 [place], [place] [phone] (Wo rk) 07/18/2022 Office Visit Urology Edward Myers MD [address] [phone] (Wo rk) documented as of this encounter Visit Diagnoses Diagnosis ED (erectile dysfunction) of organic wilfredo gin - Primary Impotence of organic origin Prostate cancer (HCC-CMS) (HCC) Malignant neoplasm of prostate documented in this encounter Care Teams Top Icer Relationship Specialty Start Date End Date Yosi Graham RPA PCP - General 07/05/16 12/17/[address] [address] documented as of this encounter
--- OUTSIDE RECORDS SUMMARY | 2022-07-05 02:48 | XMS_ITS | Encounter Summary ---
:1950 Author Organization [facility] Address [address] [place] [address] Care Team Providers Name Role Phone Yosi Graham EDER Primary Care Provider [phone] Reason for Visit Reason Onset Date Comments Labs Only 08/20/2016 Encounter Details Date Type Department Care Team Description 08/20/2016 Orders Only [facility] Jose Carlos Fisher PSA (Primary Urology - Medical MD Rigo Dx) Office Building [address], [place] [address] (Wo rk) Social History Tobacco Use Types Packs/Day Years Used Date Smoking Tobacco: Never Alcohol Use Standard Drinks/Week Comments Yes 1 (1 standard drink = 0.6 oz pure alcoho l) Sex Assigned at Date Recorded Not on file documented as of this encounter Functional Status Functional Status Response Date of Assessment Because of a physical, mental, or emotional condition, No 08/20/2016 does this person have difficulty doing errands alone such as visiting a doctor's office or shopping? Cognitive Status Response Date of Assessment Because of a physical, mental, or emotional condition, No 08/20/2016 does this person have serious difficulty concentrating, remembering, or making decisions? documented as of this encounter Plan of Treatment Upcoming Encounters Date Type Specialty Care Team Description 07/12/2022 Post-op Visit Ophthalmology Jacky Blanchard MD 111 [facility] 5 [place], [place] [phone] (Wo rk) 07/18/2022 Office Visit Urology Jose Carlos Fisher MD 111 [facility] 5 [place], [place] [phone] (Wo rk) documented as of this encounter Results CREATININE (08/20/2016 9:18 EST) athologist Signature Creatinine 1.10 0.66 - 08/20/2016 [facility] 1.25 mg/dl 9:48 EST [facility] GFR, Calculated 71 >60 08/20/2016 [facility] ml/min/1.7 9:48 [facility] 3m2 LABORATORY SERVICES Comment: eGFR calculated using CKD-EPI equation f or non Americans. Multiply eGFR by 1.16 for Americans. Performed at [facility], [place], [place] Specimen Anatomical Collection Method Collection Time Receive d Time (Source) Location / / Volume Laterality Blood specimen BLOOD SPECIMEN / 08/20/2016 9:18 2016 9:32 (specimen) Unknown EST EST Jose Carlos Fisher MD CHEMISTRY & BLOOD GAS ORDERA BLES Performing Organization Address City/State/ZIP Code Phon e Number [facility] [address] [place] [address] SERVICES documented in this encounter Visit Diagnoses Diagnosis Elevated PSA - Primary Elevated prostate specific antigen (PSA) documented in this encounter Care Teams Supply Crib Attendant Relationship Specialty Start Date End Date Yosi Graham RPA PCP - General 07/05/16 12/17/[address] [phone] documented as of this encounter
--- OUTSIDE RECORDS SUMMARY | 2022-07-05 02:48 | XMS_ITS | Encounter Summary ---
:1950 Author Organization [facility] Address [address] [place] [address] Care Team Providers Name Role Phone Yosi Graham [facility] Primary Care Provider [phone] Reason for Referral Radiology Services (Routine/Next Available) - Authorization Not Required Specialty Diagnoses / Procedures Referred By Contact Refer red To Contact Diagnoses Prostate cancer ([facility]) ([facility]) Jose Carlos Fisher MD Procedures XR ORBITS FOR FOREIGN BODY [address] [phone] Referral ID Status Reason Start Expiration Visits Visits Date Date Requested Authorized [id number] Authorization Not 04/13/2021 1 1 Required Reason for Visit Radiology Services (Routine/Next Available) - Authorization Not Required Specialty Diagnoses / Procedures Referred By Contact Refer red To Contact Diagnoses Prostate cancer ([facility]) ([facility]) Jose Carlos Fisher MD Procedures XR ORBITS FOR FOREIGN BODY [address] [phone] Referral ID Status Reason Start Expiration Visits Visits Date Date Requested Authorized [id number] Authorization Not 04/13/2021 1 1 Required Encounter Details Date Type Department Care Team Description 04/14/2021 Hospital [facility] Prostat e cancer Radiology Xr - Main (HCC-C MS) [address] [address] Social History Tobacco Use Types Packs/Day Years [...] Post-op Visit Ophthalmology Jacky Blanchard MD [address] [phone] (Wo rk) 07/18/2022 Office Visit Urology Jose Carlos Fisher MD [address] [phone] (Wo rk) documented as of this encounter Procedures Procedure Name Priority Date/Time Associated Diagnosis Comme nts XR ORBITS FOR Routine 04/14/2021 7:32 EDT Prostate cancer Resu lts for this FOREIGN BODY (HCC-CMS) procedure are i n the results section. documented in this encounter Results XR ORBITS FOR FOREIGN BODY (04/14/2021 7:32 EDT) Anatomical Region Laterality Modality Computed Radiography Specimen (Source) Anatomical Collection Method Collection Time Re ceived Time Location / / Volume Laterality 04/14/2021 9:10 EDT Impressions 04/14/2021 9:10 EDT 1. ??No evidence of metallic foreign body over the orbits. I have personally reviewed the images an d the above interpretation and agree with the findings. Narrative 04/14/2021 9:10 EDT XR ORBITS FOR FOREIGN BODY ??04/14/2021 7:35 AM Signs and Symptoms/Comments: ?? Hx eye injury with metal. Pre-MRI. Comparison: None. Technique: Two views of the orbits and an exposed p late were obtained. Findings: There is no metallic foreign body projec ting over the orbits. Procedure Note Joel Tiwari MD - 04/14/2021Form atting of this note might be different from the original. XR ORBITS FOR FOREIGN BODY 04/14/2021 7:3 5 AM Signs and Symptoms/Comments: Hx eye injury with metal. Pre-MRI. Comparison: None. Technique: Two views of the orbits and an exposed p late were obtained. Findings: There is no metallic foreign body projec ting over the orbits. IMPRESSION 1. No evidence of metallic foreign body over the orbits. I have personally reviewed the images an d the above interpretation and agree with the findings. Jose Carlos Fisher MD IMG DIAGNOSTIC IMAGING ORDER LEONEL documented in this encounter Visit Diagnoses Diagnosis Prostate cancer (HCC-CMS) (HCC) Malignant neoplasm of prostate documented in this encounter Care Teams Duct Cleaner Relationship Specialty Start Date End Date Yosi Graham RPA PCP - General 07/05/16 12/17/21 [facility] [address] [address] documented as of this encounter
--- OUTSIDE RECORDS SUMMARY | 2022-07-05 02:48 | XMS_ITS | Encounter Summary ---
:1950 Author Organization [facility] Address [address] [place] [address] Care Team Providers Name Role Phone Yosi Graham [facility] Primary Care Provider Reason for Visit Reason Onset Date Comments Follow-up Diagnostic PSG 08/08/2016 Encounter Details Date Type Department Care Team Description 08/08/2016 Telephone [facility] Jose Carlos Fisher w-up Diagnostic Urology - Medical MD [facility] Office Building [address] [place] [address], [address] [place], [place] [address] [place] [address] [phone] (Wo rk) Social History Tobacco Use Types Packs/Day Years Used Date Smoking Tobacco: Never Sex Assigned at Date Recorded Not on file documented as of this encounter Functional Status Functional Status Response Date of Assessment Because of a physical, mental, or emotional condition, No 07/08/2016 does this person have difficulty doing errands alone such as visiting a doctor's office or shopping? Cognitive Status Response Date of Assessment Because of a physical, mental, or emotional condition, No 07/08/2016 does this person have serious difficulty concentrating, remembering, or making decisions? documented as of this encounter Miscellaneous Notes Telephone Encounter - Roxana Mattson RN - 08/14/2016 1316 EST Per Will from [facility] pharmacy the zosyn 4.5g infusion can be done over 30 minutes. New order placed with notation and correct date and time. Will contact them to cancel the other zosyn order. Lefta message for Kalie from the infusion center to let them that the infusion should be all set per Will, pharmacist at [facility]. Aware to call back with further concerns. Telephone Encounter - Roxana Mattson RN - 08/08/[address] Fisher the patient can get 3.375 zosyn if 4.5 cannot be infused over 1 hour. Spoke with [facility] pharmacist. He will return call with more details. Telephone Encounter - Missy Howard - 08/08/2016 1037 EST Please call infusion ctr concerning antibiotic on 08/20 documented in this encounter Plan of Treatment Upcoming Encounters Date Type Specialty Care Team Description 07/12/2022 Post-op Visit Ophthalmology Jacky Blanchard MD [address] [phone] (Wo rk) 07/18/2022 Office Visit Urology Jose Carlos Fisher MD [address] [phone] (Wo rk) documented as of this encounter Visit Diagnoses Not on filedocumented in this encounter Care Teams Automotive Painter Helper Relationship Specialty Start Date End Date Yosi Graham, EDER PCP - General 07/05/16 12/17/[address] [address] documented as of this encounter
--- OUTSIDE RECORDS SUMMARY | 2022-07-05 02:48 | XMS_ITS | Encounter Summary ---
:1950 Author Organization [facility] Address [address] [place] [address] Care Team Providers Name Role Phone Yosi Graham [facility] Primary Care Provider [phone] Reason for Visit Reason Comments Eye Problem Encounter Details Date Type Department Care Team Description 02/08/2021 Office Visit [facility] Jacky Blanchard MD Ophthalmology - [address], [address], [address] [place], [place] [id number] [place] [address] [phone] (Wo rk) Social History Tobacco Use [...] encounter Progress Notes Jacky Blanchard MD - 02/08/2021 0830 EDT Chief Complaint Patient presents with ??? Eye Problem Comments RRd right eye s/p surg on 03/21/20 and 03/28/20 HPI Location: Both eyes Pain: 0 - No pain Quality: Blurry Severity: Mild Duration: Months Timing: Constant Lasts: Continuous Context: follow up RRD right eye s/p surgery on 03/21/20 and 03/28/20 Modifying factors: Patient notes blurry vision occasionally. No pain. No new flashes or floaters. Associated Signs & Symptoms: No drops Visual Fluctuations: Attestation: follow up s/p laser retinopexy's to RRD right eye. Vision may be a little bit more blurry has upcoming apt for refraction. Occasional floaters. No flashes. No pain. Base Eye Exam Visual Acuity (Snellen - Linear) Right Left Dist cc 20/30 -2 20/30 -1 Dist ph cc 20/25 -1 Correction: Glasses Tonometry (Applanation, 8:52) Right Left Pressure 16 12 Pupils Pupils Right PERRL Left PERRL Extraocular Movement Right Left Full Full Neuro/Psych Oriented x3: Yes Mood/Affect: Normal Dilation Both eyes: Tropicamide 1%, Phenylephrine 2.5% @ 8:52 Slit Lamp and Fundus Exam External Exam Right Left External Normal Slit Lamp Exam Right Left Lids/Lashes Normal Normal Conjunctiva/Sclera White and quiet White and quiet Cornea Clear Clear Anterior Chamber Deep and quiet Deep and quiet Iris Dilated pupil Round and reactive Lens 1+ Nuclear sclerosis 1+ Nuclear sclerosis Vitreous Posterior vitreous detachment; mild residual vit heme Vitreous syneresis Fundus Exam Right Left Disc Normal Normal C/D Ratio 0.3 0.3 Macula Normal, no membrane Normal Vessels Normal Normal Periphery Anterior detachment with multiple tears, well contained by laser barricade from 7:00 to 12:00. No new holes or tears. Retinal tuft @ 3:00 Retina attached, no predisposing lesions Please refer to large retinal drawing. IMAGING: DIAGNOSES: 1. 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 PVD (posterior vitreous detachment), right eye 3. Vitreous syneresis of left eye Assessment Anterior detachment with??multiple??tears well contained by laser barricade from 7:00 to 12:00,??right eye s/p laser??retinopexy??on 03/21/2020??and 03/28/2020 PVD right eye No new holes or tears. No neovessels. No PVR. RD precautions Monitor ?? Vitreous syneresis left eye Retina attached No predisposing lesions Follow Return in about 6 months (around 08/11/2021), or if symptoms worsen or fail to [...] Post-op Visit Ophthalmology Jacky Blanchard MD [address] [phone] (Wo rk) 07/18/2022 Office Visit Urology Jose Carlos Fisher MD [address] [phone] (Wo rk) documented as of this encounter Visit Diagnoses Diagnosis Retinal detachment of right eye with mul tiple retinal tears - Primary PVD (posterior vitreous detachment), rig ht eye Vitreous degeneration Vitreous syneresis of left eye documented in this encounter Eye Exam Visual Acuity (Snellen - Linear) Right eye Left eye Dist cc 20/30 -2 20/30 -1 Dist ph cc 20/25 -1 Correction: Glasses Tonometry (Applanation, 8:52) Right eye Left eye Pressure 16 12 Pupils Pupils Right eye PERRL Left eye PERRL Extraocular Movement Right eye Left eye Full Full Neuro/Psych Oriented x3: Yes Mood/Affect: Normal Dilation Both eyes: Tropicamide 1%, Phenylephrine 2.5% @ 8:52 External Exam Right eye Left eye External Normal Slit Lamp Exam Right eye Left eye Lids/Lashes Normal Normal Conjunctiva/Sclera White and quiet White and quiet Cornea Clear Clear Anterior Chamber Deep and quiet Deep and quiet Iris Dilated pupil Round and reactive Lens 1+ Nuclear sclerosis 1+ Nuclear sclerosi s Vitreous Posterior vitreous detachment; mild resi dual Vitreous syneresis vit heme Fundus Exam Right eye Left eye Disc Normal Normal C/D Ratio 0.3 0.3 Macula Normal, no membrane Normal Vessels Normal Normal Periphery Anterior detachment with multiple Retina attached, no predisposing tears, well contained by laser lesions barricade from 7:00 to 12:00. No new holes or tears. Retinal tuft @ 3:00 Care Teams Arts Therapist Relationship Specialty Start Date End Date Yosi Graham, EDER PCP - General 07/05/16 12/17/[address] [address] documented as of this encounter
--- OUTSIDE RECORDS SUMMARY | 2022-07-05 02:48 | XMS_ITS | Encounter Summary ---
:1950 Author Organization [facility] Address [address] [place] [address] Care Team Providers Name Role Phone Yosi Graham EDER Primary Care Provider [phone] Reason for Visit Reason Comments Eye Problem Encounter Details Date Type Department Care Team Description 04/03/2020 Office Visit [facility] Eloy Hodges MD Ophthalmology - [address], [address], [address] [place], [place] [address] [place] [address] [phone] (Wo rk) Social History Tobacco Use [...] as of this encounter Progress Notes Jacky Hodges MD - 04/03/2020 1000 EDT Chief Complaint Patient presents with ??? Eye Problem Comments Follow up laser to HST's right eye HPI Location: Right eye Pain: 0 - No pain Quality: Blurry Severity: Moderate Duration: Days Timing: Constant Lasts: Continuous Context: F/u on HST x 3 s/p Laser Sx 03/21/2020 to right eye. Modifying factors: No drops. Associated Signs & Symptoms: Patient notes that vision is stable but blurry. Maybe clearing some. Black spots are going away. Does see occasional flashes in the dark when looking to the right Visual Fluctuations: Floaters Attestation: F/u on s/p Laser to HST's in right eye. VA stable. For days. No new F and F. No eye pain. Base Eye Exam Visual Acuity (Snellen - Linear) Right Left Dist cc 20/40 20/40 Dist ph cc 20/25 -2 20/30 -2 Correction: Glasses Tonometry (Applanation, 10:23) Right Left Pressure 15 Pupils Pupils APD Right PERRL None Left PERRL None Extraocular Movement Right Left Full Full Neuro/Psych Oriented x3: Yes Mood/Affect: Normal Dilation Right eye: Tropicamide 1%, Phenylephrine 2.5% @ 10:23 Slit Lamp and Fundus Exam External Exam Right Left External Normal Slit Lamp Exam Right Left Lids/Lashes Normal Conjunctiva/Sclera White and quiet Cornea Clear Anterior Chamber Deep and quiet Iris Dilated pupil Lens Nuclear sclerosis Vitreous Little bet of VH from 5-7 o/c. Fundus Exam Right Left Disc Normal Macula flat Vessels Normal Periphery Anterior detachment with 3 - 4 tears well contained by laser barricade from 7:00 to 12:00. Imaging: Impression: 1. 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 PVD (posterior vitreous detachment), right eye Plan: HST's- right eye with localized lasered off temp eriph RETINAL DETACHMENT around tears--- S/p multiple Laser's. Anterior detachment with 3 - 4 tears well contained by laser barricade from 7:00 to 12:00??right eye s/p laser??retinopexy??on 03/21/2020- lASER LOOKS ADEQUATE The patient has a well treated horseshoe tear. The risk of retinal detachment from this tear is reduced but the risk of retinal detachment is not zero. The patient will report any increase in floaters , flashes or loss of side vision to us immediately as these symptoms are consistent with new holes tears or retinal detachment which could lead to severe loss of vision loss of eye or blindness. Spoke with Po Matthews and cautioned them to notice any new flashes, floaters, or loss in peripheral vision. If they have any of these symptoms, they were instructed to contact office immediately. They have been further counseled to cover the unaffected eye at least once per day to ascertain whether there is any increase in floaters , flashes or loss of side vision occurring in the affected eye. F/u in [address] Lo Meneses, Dr. Hodges, have performed my own HPI and reviewed the tech's ROS. I have also reviewed the patient's past medical, family, social and surgical history, as well as the patient's medications, allergies, and problem list. I am scribing for Dr. Jacky Hodges MD while he is personally performing the service. DWIGHT Martinez (Scribe) documented in this encounter Plan of Treatment Upcoming Encounters Date Type Specialty Care Team Description 07/12/2022 Post-op Visit Ophthalmology Jacky Blanchard MD [address] [phone] (Wo rk) 07/18/2022 Office Visit Urology Jose Carlos Fisher MD [address] [phone] (Wo angel) documented as of this encounter Visit Diagnoses Diagnosis Retinal detachment of right eye with mul tiple retinal tears - Primary PVD (posterior vitreous detachment), rig ht eye Vitreous degeneration documented in this encounter Eye Exam Visual Acuity (Snellen - Linear) Right eye Left eye Dist cc 20/40 20/40 Dist ph cc 20/25 -2 20/30 -2 Correction: Glasses Tonometry (Applanation, 10:23) Right eye Left eye Pressure 15 Pupils Pupils APD Right eye PERRL None Left eye PERRL None Extraocular Movement Right eye Left eye Full Full Neuro/Psych Oriented x3: Yes Mood/Affect: Normal Dilation Right eye: Tropicamide 1%, Phenylephrine 2.5% @ 10:23 External Exam Right eye Left eye External Normal Slit Lamp Exam Right eye Left eye Lids/Lashes Normal Conjunctiva/Sclera White and quiet Cornea Clear Anterior Chamber Deep and quiet Iris Dilated pupil Lens Nuclear sclerosis Vitreous Little bet of VH from 5-7 o/c. Fundus Exam Right eye Left eye Disc Normal Macula flat Vessels Normal Periphery Anterior detachment with 3 - 4 tears wel l contained by laser barricade from 7:00 to 12:00. Care Teams Knitting Machine Fixer Relationship Specialty Start Date End Date Yosi Graham, RPA PCP - General 07/05/16 12/17/[address] [address] documented as of this encounter
--- OUTSIDE RECORDS SUMMARY | 2022-07-05 02:48 | XMS_ITS | Encounter Summary ---
:1950 Author Organization [facility] Address [address] [place] [address] Care Team Providers Name Role Phone Yosi Graham EDER Primary Care Provider [phone] Reason for Referral Laboratory Services (Routine) - New Request Specialty Diagnoses / Procedures Referred By Contact Refer red To Contact Diagnoses Prostate cancer ([facility]) ([facility]) Edward Myers MD Procedures PSA TOTAL, DIAGNOSTIC 111 [facility] [address] [place] [address] Referral ID Status Reason Start Date Expiration Date Visits V isits Requested Authorized [id number] New Request 06/18/2019 1 1 Reason for Visit Reason Comments Follow-up 6 month PSA Encounter Details Date Type Department Care Team Description 06/18/2019 Office Visit [facility] Edward Myers Prost ate cancer ([facility]) (Primary Dx); Urology - Medical MD [place] (erectile [facility] Office Building [address] [place] [address] (Wo rk) Social History Tobacco [...] encounter Progress Notes Edward Myers MD - 06/18/2019 0915 EST Subjective: Patient ID: Omar Matthews is an [address] Yosi Graham has requested that I see Omar Matthews in consultation for Follow-up (6 month PSA). HPI He is here today for follow-up of his Stage [id number] G 6 CAP on . On 08/20/2016 [...] place. He has no changes in his LUT'S and sexual functioning Patient Active Problem List Diagnosis ??? Malignant [...] (Age: 66) M Collect Date: 06/10/2017 Location: [facility] [place] Receive Date: 06/11/2017 [...] CORE BIOPSY: - Minute focus of adenocarcinoma, [place] grade 3+3, in one of one core, [...] LATERAL BASE, NEEDLE CORE BIOPSY: - Adenocarcinoma, [place] grade 3+3, in one of one core, [...] diameter). Entirely submitted in L1. MAYE Moore ([facility]) 06/11/2017 9:38 AM End of Report PSA: 06/2016 : 4.9 04/2017: 3.8 09/23/17 5.9 02/02/18 5.7 06/08/18 5.7 11/21/18 4.8 06/04/19 5.6 No results found for: PSA BMP: Lab Results Component Value Date CREATININE 1.10 08/20/2016 Assessment / Plan: 1. Prostate cancer ([facility]) 2. ED (erectile dysfunction) of organic origin He has no convincing evidence of disease progression and a stable PSA. He will return in 6 months for a PSA and he will continue on . He as been by XRT and this may be his best option if he decides to proceed. He is currently favoring a seed implant. Both of his brothers chose XRT. He will continue the sildenafil prn. We will at this time continue with . Discussed that we could get a MRI of the prostate or perform a repeat BX. No orders of the defined types were placed in this encounter. Edward Myers MD documented in this encounter Plan of Treatment Upcoming Encounters Date Type Specialty Care Team Description 07/12/2022 Post-op Visit Ophthalmology Jacky Blanchard MD [address] [phone] (Wo angel) 07/18/2022 Office Visit Urology Edward Myers MD [address] [phone] (Wo angel) Scheduled Orders Name Type Priority Associated Diagnoses Order S chedule PSA TOTAL, DIAGNOSTIC Lab Routine Prostate cancer 5 O ccurrences starting ([facility]) (HCC-CMS) 06/18/20 19 until 06/17/2023 documented as of this encounter Visit Diagnoses Diagnosis Prostate cancer ([facility]) ([facility]) - Primar y Malignant neoplasm of prostate ED (erectile dysfunction) of organic wilfredo gin Impotence of organic origin documented in this encounter Care Teams Channel Process Plant Operator Relationship Specialty Start Date End Date Yosi Graham RPA PCP - General 07/05/16 12/17/[address] [place] [id number] documented as of this encounter
--- OUTSIDE RECORDS SUMMARY | 2022-07-05 02:48 | XMS_ITS | Encounter Summary ---
:1950 Author Organization [facility] Address [address] [place] [id number] Care Team Providers Name Role Phone Yosi Graham [facility] Primary Care Provider [phone] Reason for Visit Reason Comments Follow-up Encounter Details Date Type Department Care Team Description 06/10/2017 Office Visit [facility] Edward Myers ate cancer Urology - Medical MD [place] ([facility]) ([facility]) Office Building [address] [place] [address] (Primary Dx) [address] [place] [address] [address] [place], [place] [id number] [place] [address], [place] [address] (Wo rk) Social History Tobacco [...] a physical, mental, or emotional condition, No 06/10/2017 does this person have difficulty doing errands alone such as visiting a doctor's office or shopping? Cognitive Status Response Date of Assessment Because of a physical, mental, or emotional condition, No 06/10/2017 does this person have serious difficulty concentrating, remembering, or making decisions? documented as of this encounter Discharge Diagnoses Diagnosis C61 Malignant neoplasm of prostate-C61[I CD-10-CM] documented in this encounter Discharge Disposition Disposition Code Departure Means Destination Auto Discharge documented in this encounter Progress Notes Edward Myers MD - 06/10/2017 6551 EST Trans Rectal US of the Prostate Indication: HX Stage T2a G6 CAP on 11/13 positive on the left The patient had an opportunity to discuss the proposed procedure, received answers to all the question(s) they asked and had no further questions. The patient was made aware of the nature of the proposed procedure; the potential benefits, risks and or side effects, including but not limited to the potential problems related to recuperation; the likelihood of achieving the goals of the procedure; the reasonable alternatives to the proposed procedure; the relevant risks, benefits, and side effects related to the alternatives, including the possible results of not undergoing the procedure. He was positioned in the left lateral decubitus position. Transrectal ultrasonography was carried out using the 7.0 megahertz probe. Quenching Machine Operator images were obtained. PSA: AUA SS: Prostate Volume: Seminal Vesicles: Normal Symmetric Transitional Zone : Enlarged Right hyperechoic changes Volume: Not measured Peripheral Zone : Right hypoechoic lesion throughout Central Zone: Normal Capsular distortion: None Comments: Right PZ with hypoechoic changes but the Bx were positive on the left at the last setting. The patient was given the usual post-procedure precautions regarding bleeding, infection, fever, pain and other problems. The patient had an opportunity to discuss the proposed procedure, received answers to all the question(s) they asked and had no further questions. The patient was made aware of the nature of the proposed procedure; the potential benefits, risks and or side effects, including but not limited to the potential problems related to recuperation; the likelihood of achieving the goals of the procedure; the reasonable alternatives to the proposed procedure; the relevant risks, benefits, and side effects related to the alternatives, including the possible results of not undergoing the procedure. The patient had taken an enema and flouroquinalone antibiotics prior to the procedure. The patient had a prostate block performed as part of his transrectal ultrasonography. Next a total of 10cc of 1% lidocaine without epi was infiltrated at the junction of the seminal vesicles and prostate and then at Denonvilliers fascia. The 7.0 megahertz probe was used as guidance to perform prostate biopsies. Ultrasound guidance was used to perform biopsies at the right and left base, mid and apex of the prostate. Additional biopsieswere performed at the lateral base, lateral mid and lateral apex prostate on each side. Additional biopsies: The patient tolerated the procedure well. Digital pressure was applied to minimize any oozing. He was given the usual post-procedure precautions regarding bleeding, infection, fever, pain and other problems. He will follow-up for the results of his pathology in 1-2 weeks. documented in this encounter Plan of Treatment Upcoming Encounters Date Type Specialty Care Team Description 07/12/2022 Post-op Visit Ophthalmology Jacky Blanchard MD 111 [facility] [address] [place] [address] (Wo rk) 07/18/2022 Office Visit Urology Edward Myers MD [address] [phone] (Wo rk) Scheduled Orders Name Type Priority Associated Diagnoses Order [facility] SURGICAL PATHOLOGY- Pathology Routine Prostate cancer Order ed: 06/10/2017 ORDER ONLY ([facility]) documented as of this encounter Procedures Procedure Name Priority Date/Time Associated Diagnosis Comme nts SURGICAL PATHOLOGY Routine 06/10/2017 8:42 EST Re sults for this procedure are i n the results section. documented in this encounter Results SURGICAL PATHOLOGY (06/10/2017 8:42 EST) Component Value Ref Test Analysis Performed At [facility] Pathology SURGICAL PATHOLOGY REPORT [facility] MEDICAL Report: Reports generated via electronic interface contain origina l data; CENTER however they are lacking the format of the original report. LABORATORY Caution should be taken when reading/interpreting unformat justyn reports. SERVICES Name: ? OMAR MATTHEWS ? Accession #: ? [id number] ? : ? 1950 (Age: [age]) ??M ? Collect Date: ? 06/10/2017 ? Location: ? [facility] ? Receive Date: ? 06/11/2017 ? Provider: EDWARD MYERS MD Copy to: ? Final Pathologic Diagnosis: A. PROSTATE, LEFT MID BASE, NEEDLE CORE BIOPSY: - Adenocarcinoma, Cornish gr cortez 3+3, in one of one core, involving approximately 60% of the involved core. B. PROSTATE, LEFT MID MID, NEEDLE CORE BIOPSY: - Adenocarcinoma, Cornish gr cortez 3+3, in one of one core, involving approximately 60% of the involved core. C. PROSTATE, LEFT MID APEX, NEEDLE CORE BIOPSY: - Adenocarcinoma, Irene gr cortez 3+3, in one of one core, involving approximately 10% of the involved core. D. PROSTATE, LEFT LATERAL BASE, NEEDLE CORE BIOPSY: - Adenocarcinoma, Cornish gr cortez 3+3, in one of one core, involving [...] BASE, NEEDLE CORE BIOPSY: - Adenocarcinoma, Irene gr cortez 3+3, in one of one core, involving less than 5% of the involved core. K. PROSTATE, RIGHT LATERAL MID, NEEDLE CORE BIOPSY: - Minute focus of atypical small acinar proliferation (DONAL) . L. PROSTATE, RIGHT LATERAL APEX, NEEDLE CORE BIOPSY: - Benign prostatic glands and stroma. Document reviewed and electronically signed by: BINH CARROLL MD Report ??Date: 06/13/2017 12:55 By the signature above, the attending physician certifies th at he/she has personally conducted a gross and/or microscopic examin ation of the described specimens and rendered or confirmed the above diagnosis. Specimen(s) Received: A. ??Left mid base B. ??Left mid mid C. ??Left mid apex D. ??Left lateral base E. ??Left lateral mid F. ??Left lateral apex G. ??Right mid base H. ??Right mid mid I. ??Right mid apex J. ??Right lateral base K. ??Right lateral mid L. ??Right lateral apex Clinical History: Prostate cancer; clinical diagnosis code: ??C61 Gross Description: A. ?Received in formalin labelled with proper patie nt identification (initials D, J) and left mi d base is a garcia-white tissue core (1.8 cm in length x 0.1 cm in diameter). Submitted intact in A1. B. ?Received in formalin labelled with proper patie nt identification (initials D, J) and left mi d mid is a garcia-white tissue core (1.9 cm in length x 0.1 cm in diameter). Submitted intact in B1. C. ?Received in formalin labelled with proper patie nt identification (initials D, J) and left mi d apex is a garcia-white tissue core (1.5 cm in length x 0.1 cm in diameter). Submitted intact in C1. D. ?Received in formalin labelled with proper patie nt identification (initials D, J) and left lateral base is a garcia -white tissue core (2.5 cm in length x 0.1 cm in diameter). Submitted intact in D1. E. ?Received in formalin labelled with proper patie nt identification (initials D, J) and left lateral mid is a garcia-white tissue core (1.6 cm in length x 0.1 cm in diameter). Submitted intact in E1. F. ?Received in formalin labelled with proper patie nt identification (initials D, J) and left lateral apex are two garcia-white tissue cores (0.6 cm and 1.6 cm in length, and each 0.1 cm in diamete r). Entirely submitted in F1. G. ?Received in formalin labelled with proper patie nt identification (initials D, J) and right mid base is a garcia-white tissue c ore (1.4 cm in length x 0.1 cm in diameter). Submitted intact in G1. H. ?Received in formalin labelled with proper patie nt identification (initials D, J) and right m id mid is a garcia-white tissue core (2.1 cm in length x 0.1 cm in diameter). Submitted intact in H1. I. ?Received in formalin labelled with proper patie nt identification (initials D, J) and right mid apex is a garcia-white tissue c ore (1.4 cm in length x 0.1 cm in diameter). Submitted intact in I1. J. ?Received in formalin labelled with proper patie nt identification (initials D, J) and right lateral base is a garcia-white tissue core (2.5 cm in length x 0.1 cm in diameter). Submitted intact in J1. K. ?Received in formalin labelled with proper patie nt identification (initials D, J) and right lateral mid is a garcia -white tissue core (2.5 cm in length x 0.1 cm in diameter). Submitted intact in K1. L. ?Received in formalin labelled with proper patie nt identification (initials D, J) and right l ateral apex are two garcia-white tissue cores (0.7 cm and 0.9 cm in length, and each 0.1 cm in diamete r). Entirely submitted in L1. MAYE Moore (ASCP) 06/11/2017 9:38 AM End of Report Specimen Anatomical Collection Method Collection Time Receive d Time (Source) Location / / Volume Laterality 06/10/2017 8:42 06/11/2017 8 :42 EST EST Edward Myers MD PATHOLOGY ORDERABLES Performing Organization Address City/State/ZIP Code Phon e Number [facility] [address] [place] [id number] SERVICES documented in this encounter Visit Diagnoses Diagnosis Prostate cancer (HCC-CMS) (HCC) - Primar y Malignant neoplasm of prostate documented in this encounter Care Teams Elementary Substitute Teacher Relationship Specialty Start Date End Date Yosi Graham, EDER PCP - General 07/05/16 12/17/[address] [facility] [address] [place] [address] documented as of this encounter
--- OUTSIDE RECORDS SUMMARY | 2022-07-05 02:48 | XMS_ITS | Encounter Summary ---
:1950 Author Organization [facility] Address [address] [place] [address] Care Team Providers Name Role Phone Yosi Graham EDER Primary Care Provider [phone] Reason for Referral Radiology Services (Routine) - Authorization Not Required Specialty Diagnoses / Procedures Referred By Contact Refer red To Contact Radiology Diagnoses Prostate cancer ([facility]) ([facility]) Edward Myers MD Procedures MR PROSTATE W WO CONTRAST 111 [facility] [address] [place] [phone] Referral ID Status Reason Start Expiration Visits Visits Date Date Requested Authorized [id number] Authorization Not 01/16/2021 1 1 Required Reason for Visit Reason Comments Follow-up 6 month PSA Encounter Details Date Type Department Care Team Description 01/16/2021 Office Visit [facility] Edward Myers Prost ate cancer ([facility]) (Primary Dx); Urology - Medical MD [place] [facility] (erectile dysfunction[facility] Office Building [address] [place] [address] [place] [address] (Wo rk) Social History Tobacco [...] Sig Dispensed Refills Start Date End Date diazePAM (VALIUM) 10 mg One tab 1 hour and 2 Tablet 0 01/0207/11/2021 tablet then the second 10 minutes before your scheduled appt. documented in this encounter Progress Notes Edward Myers MD - 01/16/2021 0915 EDT The concept of ???Telemedicine?? has been [...] Subjective: Patient ID: Omar Matthews is an [address] yun referring provider has requested that I see Omar Matthews in consultation for Follow-up (6month PSA). HPI He is here today on a telephone visit for follow-up of his Stage X1iNADH G 6 CAP on . On 08/20/2016 [...] has not had any imaging studies . Patient Active Problem List Diagnosis ??? Malignant [...] (Age: 66) M Collect Date: 06/10/2017 [place] [facility] [place]ceive Date: 06/11/2017 Provider: EDWARD MYERS MD Copy to: Final Pathologic Diagnosis: A. PROSTATE, LEFT MID BASE, NEEDLE CORE BIOPSY: - Adenocarcinoma, Davenport grade 3+3, in one of one core, involving approximately 60% of the involved core. B. PROSTATE, LEFT MID MID, NEEDLE CORE BIOPSY: - Adenocarcinoma, Davenport grade 3+3, in one of one core, [...] CORE BIOPSY: - Minute focus of adenocarcinoma, Davenport grade 3+3, in one of one core, [...] LATERAL BASE, NEEDLE CORE BIOPSY: - Adenocarcinoma, Davenport grade 3+3, in one of one core, [...] diameter). Entirely submitted in L1. MAYE Moore ([facility]) 06/11/2017 9:38 AM End of Report PSA: 06/2016 : 4.9 04/2017: 3.8 09/23/17 5.9 02/02/18 5.7 06/08/18 5.7 11/21/18 4.8 06/04/19 5.6 12/2019 6.6 06/28/2020 7.1 01/15/21 7.5 No results found for: PSA BMP: Lab Results Component Value Date CREATININE 1.10 08/20/2016 Assessment / Plan: 1. Prostate cancer (HCC-CMS) 2. ED (erectile dysfunction) of organic origin He has a rise in his PSA but the velocity is low and overall minimal. Discussed that we could get a MRI of the prostate or perform a repeat BX. He has an increased risk of progression based upon his high % prostate cancer volume . He will get an MRI as the next step . He will get this in 3 months He will continue the sildenafil prn. Other Orders Placed This Visit Procedures ??? MR PROSTATE W WO CONTRAST ??? PSA Total, Diagnostic Edward Myers MD documented in this encounter Plan of Treatment Upcoming Encounters Date Type Specialty Care Team Description 07/12/2022 Post-op Visit Ophthalmology Jacky Blanchard MD [address] [phone] (Wo rk) 07/18/2022 Office Visit Urology Edward Myers MD [address] [phone] (Wo rk) documented as of this encounter Results MR PROSTATE W WO [...] Probable discogenic changes lower lum bar spine. Edward Myers MD IMG MRI ORDERABLES documented in this encounter Visit Diagnoses Diagnosis Prostate cancer (HCC-CMS) (HCC) - Primar y Malignant neoplasm of prostate ED (erectile dysfunction) of organic wilfredo gin Impotence of organic origin Prostate cancer (HCC-CMS) (HCC) Malignant neoplasm of prostate documented in this encounter Historical Medications This list may reflect changes made after this encounter. Medication Sig Dispensed Refills Start Date End Date pravastatin (PRAVACHOL) 10 Take 10 mg by mouth 0 10/10/2021 mg tablet daily. added in this encounter Care Teams Principal Java Software Engineer Relationship Specialty Start Date End Date Yosi Graham RPA PCP - General 07/05/16 12/17/[address] [place] [id number] documented as of this encounter
--- OUTSIDE RECORDS SUMMARY | 2022-07-05 02:48 | XMS_ITS | Clinical Summary ---
:1950 Author Organization [facility] [place] [address] Care Team Providers Name Role Phone Yosi Graham Primary Care Provider Allergies No known active allergies Medications Medication Sig Dispensed Refills Start Date End Date Status aspirin 81 mg Tablet, Take 81 mg by 30 tablet 3 12/05/2014 Active Chewable mouth daily. meTOPROLOL succinate Take 25 mg by 0 Active (TOPROL-XL) 25 mg mouth daily. Tablet Sustained Release 24 hr lisinopriL (Zestril) 30 Take 30 mg by 0 Active mg Tablet mouth daily. Take in the morning. amLODIPine (Norvasc) Take 1 tablet by 90 tablet 3 02/21/2022 Active 2.5 mg Tablet mouth daily. pravastatin (PRAVACHOL) Take 40 mg by 0 Active 40 mg Tablet mouth daily. Active Problems Problem Noted Date Ascending aorta dilatation 11/14/2014 Aortic stenosis 11/07/2014 Overview: Images from the original note were not i ncluded. Progressvie NYHA Class II DAWN 12/01/2014 AVR 25 TRIFECTA PERICARDIAL, A SCENDING AORTIC REPLACEMENT 28 VASKUTEK GRAFT TTE 03/18/2018: Cardiac catheterization 11/07/14: RAP-9 PA P-03/07/19 PCWP-13 CO/CI-6.67/3.30; ascending aorta- 4.5 cm, mild disease prox LAD and mid RCA, no significnat coronary artery disease Echocardiography 09/30/14: LVEF 65%, no R WMA, LVH, nl RV, severe peak/mean gradients 100/52 mmHg, FABIOLA 0.6 sq cm, trivial AR, trivial MR, trivial TR, Dilated ascending aorta 4.0 cm, PASP 26 mmHg, Echocardiography 03/01/13: LVEF 65%, no R WMA, nl RV, severe peak/mean gradients 50/19, FABIOLA- 0.8 sq cm, Trivila AR, MR, and TR, PASP 26 mmHg Echocardiography 07/03/11: LVEF 65%, no RWMA, nl RV, Moderate , peak/mean gradients 40/24 mmHg, FABIOLA- 0.9 sq cm, Trivial AR, MR, TR, PASP 23 mmHg Echocardiography 09/19/08: LVEF 65%, no R WMA, nl RV, moderate , peak/mean gradients 48/25 mmHg, FABIOLA-1.1 sq cm, 3,8 cm ascendingaorta Hypertension, essential, benign 11/07/2014 Encounters Date Type Specialty Care Team Description 05/09/2022 Telephone Cardiology Rigo Vazquez RN 05/08/2022 Hospital Encounter Cardiology Lai Gonzales MD Aorti c valve stenosis, etiology of cardiac valve disease unspecified; Hypertension, e ssential, benign; Ascending aorta dilatation 04/22/2022 Office Visit Cardiac Surgery Tay Alonzo S/Deep AVR ; MD Sandra S/P ascending a ortic aneurysm repair; Essential hyper tension 04/22/2022 Hospital Encounter Radiology Tay Alonzo S/Deep AVR MD Sandra from Last 3 Months Social History Tobacco Use Types Packs/Day Years Used Date Smoking Tobacco: Never Smokeless Tobacco: Never Alcohol Use Standard Drinks/Week Comments Yes 2 (1 standard drink = 0.6 oz pure alcoho l) occassional Sex Assigned at Date Recorded Not on file Last Filed Vital Signs Vital Sign Reading Time Taken Comments Blood Pressure 142/85 04/22/2022 2:08 PM EDT Pulse 64 04/22/2022 2:08 PM EDT Temperature 37 ??C (98.6 ??F) 12/05/2014 11:33 AM EDT Respiratory Rate 16 12/05/2014 11:33 AM EDT Oxygen Saturation 100% 04/22/2022 2:08 PM EDT Inhaled Oxygen Concentration - - Weight 97.4 kg (214 lb 12.8 oz) 04/22/2022 2:08 PM EDT Height 167.6 cm (5' 6) 04/22/2022 2:08 PM EDT Body Mass Index 34.67 04/22/2022 2:08 PM EDT Plan of Treatment Health Maintenance Due Date Last Done Comments Covid-19 Vaccine (#1) 02/12/1951 Hepatitis C Screening 1970 Tdap adult 1971 Tetanus vaccine 1971 Colonoscopy 1997 Zoster vaccine (1 of 2) 2002 Advance Directive 2007 Pneumoccocal Vaccine: 65+ (1 - PCV) 2017 Diabetes Screening (HgbA1C or 12/04/2017 12/04/2014, 2014, Glucose) 11/14/2014 Influenza (Flu) vaccine (1 of 1 - 04/04/2022 Influenza standard series) Medical Devices Implanted Type Area Office Sweeper Device Shelf Model / Identifier Expiration Serial / Date Lot Cable,Tpr,Blnt,Ss ([id number]) - [id number] IMPLANTS N/A: [employer] 05/31/2019 [id number] / Implanted: Qty: 1 on 12/01/2014 by Tay Alonzo MD at [facility] [employer] - / [id number] Procedures Procedure Name Priority Date/Time Associated Comments Diagnosis ECHOCARDIOGRAM COMPLETE Routine 05/08/2022 3:33 PM Aortic valv e Results for this EDT stenosis, etiology procedure are in of cardiac valve the results disease section. unspecified Hypertension, essential, benig n Ascending aorta dilatation CT ANGIOGRAM OF CHEST Routine 04/22/2022 11:47 S/P AVR Re sults for this (NON-CORONARY) W AM EDT procedure a re in CONTRAST the results section. LAB SCAN 04/17/2022 12:00 Results for this AM EDT procedure are i n the results section. from Last 3 Months Results ECHOCARDIOGRAM COMPLETE (05/08/2022 3:33 PM EDT) Anatomical Region Laterality Modality Cardiac Other Specimen (Source) Anatomical Collection Method Collection Time Re ceived Time Location / / Volume Laterality 05/08/2022 11:58 AM EDT Narrative 05/08/2022 3:56 PM EDT ? Echocardiogram Report Name: OMAR MATTHEWS ?Study Date: 05/08/2022 11:58 AMBP: 134/76 mmHg ? Patient Location: [address] [place] [address] : 1950 ? Height: 168 cm ? Account: [id number] Age: 71 yrs ? Weight: 95 kg Gender: Male ?BSA: 2.0 m2 Ordering Physician: LAI GONZALES Referring Physician: LAI GONZALES Reason For Study: Aortic valve stenosis, Hypertension, Ascending aorta dilation Exam Location: [facility]. Interpretation Summary Left ventricle is of normal size. Mildly increased thickness of the basal septum with no obstruction to LV outflow. Left ventricular systolic function is normal. The left ventricular ejection fraction i s 66% by Galvan's biplane. There are no segmental wall motion abnormalities. Right ventricle is moderately dilated. R ight ventricular systolic function is normal. A 25 mm Trifecta (bovine stented) valve is present (inserted 12/01/2014). The valve leaflets are not well visualized. The pe ak gradient across the prosthesis is 17 mmHg; mean gradient is 8 mmHg. DVI is 0. 53. Compared to the prior TTE from 03/2018, t here has not been a significant change in gradients or DVI. Procedure Complete-40021. Satisfactory quality. Th ere is normal sinus rhythm. Left Ventricle Left ventricle is of normal size. Mildly increased thickness of the basal septum with no obstruction to LV outflow. There is no ventricular septal defect. Left ventricular systolic function is normal. The left ventricular ejection fraction is 66% by Galvan's biplane. There are no s egmental wall motion abnormalities. Right Ventricle Right ventricle is moderately dilated. R ight ventricular systolic function is normal. Left Atrium The left atrium is normal. There is no e vidence for a patent foramen ovale. Right Atrium The right atrium is mildly dilated. Aortic Valve A 25 mm Trifecta (bovine stented) valve is present. The date or year of insertion is 12/01/2014. Aortic bioprosthesis leafl ets are thickened. The peak gradient across the prosthesis is 17 mmHg. The me an gradient across the prosthesis is 8 mmHg. Mitral Valve The mitral valve is structurally normal. Minimal calcification of the posterior mitral annulus. There is no mitral steno sis. There is trace mitral regurgitation. Tricuspid Valve The tricuspid valve is structurally norm al. There is no tricuspid stenosis. There is trace tricuspid regurgitation. Pulmonic Valve The pulmonic valve appears to be structu rally normal. There is no valvular pulmonic stenosis. There is mild pulmoni c valve regurgitation. Great Arteries The aortic root at the level of the sinu ses of Valsalva is mildly dilated. The diameter at the level of the sinuses of Valsalva is 4 cm. Ascending aorta is normal in size. There is an aortic graft in place. Pericardium/Pleural There is no pericardial effusion. Ejection Fraction ?2D Measurem ents ? Volumes EF(MOD-bp): 65.9 % ?IVSd: 1.3 cm ? LAV(MOD- bp) Indexed: ?L VIDd: 4.8 cm ?32.3 ml/m2 ?L VIDs: 2.8 cm ?L VPWd: 0.93 cm ? RA A4Cs_phl: 24.4 cm2 ?L V mass(C)d: 196.8 grams ? EDV (MOD-bp) Index: 40.9 ? ESV (MOD-bp) Index: 14.0 ?L V mass(C)dI: 96.2 grams/m2 ?A o root diam: 4.0 cm ?A o root diam index: 1.9 ?a sc Aorta Diam: 3.0 cm ?T APSE_phl: 2.3 cm Doppler TR max henrry: 225.4 cm/sec LV V1 VTI: 23.7 cm Ao V2 VTI: 44.8 cm Ao Max: 208.2 cm/sec Ao valve max: 17.3 mmHg Ao valve mean: 7.7 mmHg MV E max henrry: 81.7 cm/sec MV A max henrry: 66.7 cm/sec MV E/A: 1.2 MV dec time: 0.23 sec Lat Peak E' Henrry: 9.4 cm/sec E/ e' (lat): 8.7 Med Peak E' Henrry: 8.1 cm/sec E/e' (med): 10.1 E/e' Average: 9.4 Dimensionless index Aov: 0.53 PI end-d henrry: 80.9 cm/sec I ?WMSI = 1.00 ? % Normal = 1 00 ?Segments ??Size X - Cannot ?2 - ?4 - ?1-2 ? small Interpret ?1 - Normal ?? Hypokinetic 3 - Akinetic Dyskinetic ?? 3-5 ? moderate 5 - ? 6-14 ?large Aneurysmal ?15-16 ?? diffuse Procedure Note Domingo Dao MD - 05/08/2022Form atting of this note might be different from the original. Echocardiogram Report Name: OMAR MATTHEWS Study Date: 022 11:58 AMBP: 134/76 mmHg Patient Location: [address] [place] [address] : 1950 Height: 168 cm Account: [id number] Age: 71 yrs Weight: 95 kg Gender: Male BSA: 2.0 m2 Ordering Physician: LAI GONZLAES Referring Physician: LAI GONZALES Reason For Study: Aortic valve stenosis, Hypertension, Ascending aorta dilation Exam Location: [facility]. Interpretation Summary Left ventricle is of normal size. Mildly increased thickness of the basal septum with no obstruction to LV outflow. Left ventricular systolic function is normal. The left ventricular ejection fraction i s 66% by Galvan's biplane. There are no segmental wall motion abnormalities. Right ventricle is moderately dilated. R ight ventricular systolic function is normal. A 25 mm Trifecta (bovine stented) valve is present (inserted 12/01/2014). The valve leaflets are not well visualized. The pe ak gradient across the prosthesis is 17 mmHg; mean gradient is 8 mmHg. DVI is 0. 53. Compared to the prior TTE from 03/2018, t here has not been a significant change in gradients or DVI. Procedure Complete-94884. Satisfactory quality. Th ere is normal sinus rhythm. Left Ventricle Left ventricle is of normal size. Mildly increased thickness of the basal septum with no obstruction to LV outflow. There is no ventricular septal defect. Left ventricular systolic function is normal. The left ventricular ejection fraction is 66% by Galvan's biplane. There are no s egmental wall motion abnormalities. Right Ventricle Right ventricle is moderately dilated. R ight ventricular systolic function is normal. Left Atrium The left atrium is normal. There is no e vidence for a patent foramen ovale. Right Atrium The right atrium is mildly dilated. Aortic Valve A 25 mm Trifecta (bovine stented) valve is present. The date or year of insertion is 12/01/2014. Aortic bioprosthesis leafl ets are thickened. The peak gradient across the prosthesis is 17 mmHg. The me an gradient across the prosthesis is 8 mmHg. Mitral Valve The mitral valve is structurally normal. Minimal calcification of the posterior mitral annulus. There is no mitral steno sis. There is trace mitral regurgitation. Tricuspid Valve The tricuspid valve is structurally norm al. There is no tricuspid stenosis. There is trace tricuspid regurgitation. Pulmonic Valve The pulmonic valve appears to be structu rally normal. There is no valvular pulmonic stenosis. There is mild pulmoni c valve regurgitation. Great Arteries The aortic root at the level of the sinu ses of Valsalva is mildly dilated. The diameter at the level of the sinuses of Valsalva is 4 cm. Ascending aorta is normal in size. There is an aortic graft in place. Pericardium/Pleural There is no pericardial effusion. Ejection Fraction 2D Measurements Volume s EF(MOD-bp): 65.9 % IVSd: 1.3 cm LAV(MOD- bp) Indexed: LVIDd: 4.8 cm 32.3 ml/m2 LVIDs: 2.8 cm LVPWd: 0.93 cm RA A4Cs_phl: 24.4 cm2 LV mass(C)d: 196.8 grams EDV (MOD-bp) I ndex: 40.9 ESV (MOD-bp) Index: 14.0 LV mass(C)dI: 96.2 grams/m2 Ao root diam: 4.0 cm Ao root diam index: 1.9 asc Aorta Diam: 3.0 cm TAPSE_phl: 2.3 cm Doppler TR max henrry: 225.4 cm/sec LV V1 VTI: 23.7 cm Ao V2 VTI: 44.8 cm Ao Max: 208.2 cm/sec Ao valve max: 17.3 mmHg Ao valve mean: 7.7 mmHg MV E max henrry: 81.7 cm/sec MV A max henrry: 66.7 cm/sec MV E/A: 1.2 MV dec time: 0.23 sec Lat Peak E' Henrry: 9.4 cm/sec E/ e' (lat): 8.7 Med Peak E' Henrry: 8.1 cm/sec E/e' (med): 10.1 E/e' Average: 9.4 Dimensionless index Aov: 0.53 PI end-d henrry: 80.9 cm/sec I WMSI = 1.00 % Normal = 100 Segments Size X - Cannot 2 - 4 - 1-2 small Interpret 1 - Normal Hypokinetic 3 - Jc netic Dyskinetic 3-5 moderate 5 - 6-14 large Aneurysmal 15-16 diffuse Lai P Madelyn GIBSON ECHO ORDERABLES CT Angiogram Chest (Non-Coronary) w Contrast (04/22/2022 11:47 AM EDT) Anatomical Region Laterality Modality Chest Computed Tomography Specimen (Source) Anatomical Collection Method Collection Time Re ceived Time Location / / Volume Laterality 04/22/2022 12:05 PM EDT Impressions 04/22/2022 4:58 PM EDT Stable findings related to aortic valve replacement and ascending aortic repair. Based on centerline reconstructions on the previous maximal diameter just cranial to the ascending aortic rep air was before 37 mm and is now 39 mm. Thank you for letting us participate in the care of this patient. ??If you are a health care provider and have any questi ons regarding this report, please contact the number below. ??For patients who have questions please contact the health patient care technician that requested your imaging first. ? Narrative 04/22/2022 4:58 PM EDT EXAMINATION: CT ANGIOGRAM CHEST (NON-CORONARY)W CONTRAST CLINICAL HISTORY: Thoracic aorta disease , post-op TECHNIQUE: Helical CT angiogram of the c hest was performed following the intravenous administration of contrast. 65.1 cc Omnipaque 350. Maximum intensity projection (MIP) were reformatted. 3D im ages were generated on an independent workstation. COMPARISON: 05/27/2016. FINDINGS: VASCULAR Heart: Stable size of the heart. No cee cardial effusion. Aortic valve replacement as before. Mild coronary art sharif atherosclerotic calcification. Aorta: Stable sequela of ascending aorti c repair. Diameters are as follows. Aortic sinuses of Valsalva: 40 mm cusp t o cusp, 32 mm cusp to commissure. Sinotubular junction (proximal anastomos is): 32 mm Ascending thoracic aorta (just distal to the repair): 39 mm. Proximal aortic arch: 37 mm. Mid aortic arch: 29 mm. Proximal descending thoracic aorta: 31 m m. Mid descending aorta: 30 mm. Aorta at the diaphragm: 25 mm. Great vessels: No stenosis or aneurysm. Celiac/SMA: No stenosis or aneurysm. NON-VASCULAR Lungs and large airways: Stable sub-5 mm pulmonary nodule in the middle lobe (series 6 image 238). Mild dependent ate lectases. Central and segmental airways are patent. Pleura: No effusion. Mediastinum and anne marie: No interval enlarg ement of lymph nodes. Limited views of the upper abdomen: No s ignificant change. Osseous structures: Degenerative changes . Sternal cables. Procedure Note Gaby Maher MD - 2021 EXAMINATION: CT ANGIOGRAM CHEST (NON-COR ONARY)W CONTRAST CLINICAL HISTORY: Thoracic aorta disease , post-op TECHNIQUE: Helical CT angiogram of the c hest was performed following the intravenous administration of contrast. 65.1 cc Omnipaque 350. Maximum intensity projection (MIP) were reformatted. 3D im ages were generated on an independent workstation. COMPARISON: 05/27/2016. FINDINGS: VASCULAR Heart: Stable size of the heart. No cee cardial effusion. Aortic valve replacement as before. Mild coronary art sharif atherosclerotic calcification. Aorta: Stable sequela of ascending aorti c repair. Diameters are as follows. Aortic sinuses of Valsalva: 40 mm cusp t o cusp, 32 mm cusp to commissure. Sinotubular junction (proximal anastomos is): 32 mm Ascending thoracic aorta (just distal to the repair): 39 mm. Proximal aortic arch: 37 mm. Mid aortic arch: 29 mm. Proximal descending thoracic aorta: 31 m m. Mid descending aorta: 30 mm. Aorta at the diaphragm: 25 mm. Great vessels: No stenosis or aneurysm. Celiac/SMA: No stenosis or aneurysm. NON-VASCULAR Lungs and large airways: Stable sub-5 mm pulmonary nodule in the middle lobe (series 6 image 238). Mild dependent ate lectases. Central and segmental airways are patent. Pleura: No effusion. Mediastinum and anne marie: No interval enlarg ement of lymph nodes. Limited views of the upper abdomen: No s ignificant change. Osseous structures: Degenerative changes . Sternal cables. IMPRESSION Stable findings related to aortic valve replacement and ascending aortic repair. Based on centerline reconstructions on the previous maximal diameter just cranial to the ascending aortic rep air was before 37 mm and is now 39 mm. Thank you for letting us participate in the care of this patient. If you are a health care provider and have any questi ons regarding this report, please contact the number below. For patients w ho have questions please contact the health patient care technician that requested your imaging first. Tay Alonzo MD IMG CT ORDERABLES SCAN DOC: LAB (04/17/2022 12:00 AM EDT) Narrative 04/17/2022 12:00 AM EDT This result has an attachment that is no t available. Ordered by an unspecified provider. Scanning Provider MEDIA MGR SCAN EXT ORDR/RSLT from Last 3 Months Insurance Payer Benefit Plan / Subscriber ID Effective Phone Address T ype Group Dates MEDICARE MEDICARE PART A [id number] 2022-Pres [phone] [facility] [place] [id number] AETNA MEDICARE AETNA MEDICARE [id number] 2017-Prese [address] [address] [place] [address] [place] [id number] 2022-Pres [phone] [address] [facility] [id number] Advance Directives Latest Code Status on File Code Status Date Activated Date Inactivated Comments Full Code 12/05/2014 12:52 PM Question Answer Comments Does patient have decision making Yes, Order is based on Pat ients capacity? wishes. Code Status History Code Status Date Activated Date Inactivated Comments Full Code 12/01/2014 12:57 PM 12/05/2014 12:52 PM Question Answer Comments Order Status: Initial Order Does patient have decision making Yes, Order is based on Pat ients capacity? wishes. Full Code 12/01/2014 6:49 AM 12/01/2014 12:57 PM Question Answer Comments Does patient have decision making Yes, order is based on Pat ient capacity? wishes. Care Teams Eligibility Technician Relationship Specialty Start Date End Date Yosi Graham PA PCP - General Internal Medicine 04/22/22 [address] [place] [address]
--- OUTSIDE RECORDS SUMMARY | 2022-07-05 02:48 | XMS_ITS | Encounter Summary ---
:1950 Author Organization [facility] Address [address] [place] [address] Care Team Providers Name Role Phone Yosi Graham [facility] Primary Care Provider [phone] Reason for Referral Radiology Services (Routine/Next Available) - Authorization Not Required Specialty Diagnoses / Procedures Referred By Contact Refer red To Contact Diagnoses Prostate cancer ([facility]) ([facility]) Jose Carlos Fisher MD Procedures XR ORBITS FOR FOREIGN BODY [address] [place] [address] [address] [place] [address] Referral ID Status Reason Start Expiration Visits Visits Date Date Requested Authorized [id number] Authorization Not 04/13/2021 1 1 Required Encounter Details Date Type Department Care Team Description 04/13/2021 Orders Only [facility] Jose Carlos Fisher Prost ate cancer Urology - Medical MD Rigo ([facility]) (Primary Office Building [address] [facility]) [address] [facility] [address] [place] [id number] [place] [address] [place] [address] (Wo rk) Social History Tobacco [...] Progress Notes Jose Carlos Fisher MD - 04/13/2021 0937 EDT Orbital Films ordered documented in this encounter Plan of Treatment Upcoming Encounters Date Type Specialty Care Team Description 07/12/2022 Post-op Visit Ophthalmology Jacky Blanchard MD [address] [phone] (Wo rk) 07/18/2022 Office Visit Urology Jose Carlos Fisher MD [address] [phone] (Wo rk) documented as of this encounter Results XR ORBITS FOR FOREIGN [...] - Primar y Malignant neoplasm of prostate Prostate cancer (HCC-CMS) (HCC) Malignant neoplasm of prostate documented in this encounter Care Teams [employer] Engineer Relationship Specialty Start Date End Date Yosi Graham, EDER PCP - General 07/05/16 12/17/[address] [place] [id number] documented as of this encounter
--- OUTSIDE RECORDS SUMMARY | 2022-07-05 02:48 | XMS_ITS | Encounter Summary ---
:[address] [facility] Address [address] [place] [address] Care Team Providers Name Role Phone Yosi Graham EDER Primary Care Provider [phone] Reason for Visit Reason Comments Follow-up 4 month PSA Encounter Details Date Type Department Care Team Description 06/23/2018 Office Visit [facility] Edward Myers Prost ate cancer ([facility]) (Primary Dx); Urology - Medical MD [place] ED (erectile dysfunction) of organic wilfredo gin; Office Building [address] [place] [address] [address] [place], [place] [address] [place] [address], [place] [phone] (Wo rk) Social History Tobacco Use Types [...] Diagnosis C61 Malignant neoplasm of prostate-C61[I CD-10-CM] N52.9 Male erectile dysfunction, unspeci fied-N52.9[ICD-10-CM] R97.20 Elevated prostate specific antige n [PSA]-R97.20[ICD-10-CM] documented in this encounter Ordered Prescriptions Prescription Sig Dispensed Refills Start Date End Date sildenafil citrate Take 1 Tab by mouth 30 Tab 11 06/23/20 18 10/10/2021 (VIAGRA) 100 mg tablet as needed for Erectile Dysfunction. documented in this encounter Discharge Disposition Disposition Code Departure Means Destination Auto Discharge documented in this encounter Progress Notes Edward Myers MD - 06/23/2018 0900 EST Subjective: Patient ID: Omar Matthews is an [address] Yosi Graham has requested that I see Omar Matthews in consultation for Follow-up (4 month PSA). HPI He is here today for follow-up of his Stage [id number] G 6 CAP on . On 08/20/2016 [...] urgency. He has reduced erections. He is interested in trying therapy. He has a bovine heart valve in [...] (Age: 66) M Collect Date: 06/10/2017 Location: [facility] Receive Date: 06/11/2017 Provider: EDWARD MYERS MD Copy to: Final Pathologic Diagnosis: A. PROSTATE, LEFT MID BASE, NEEDLE CORE BIOPSY: - Adenocarcinoma, [place] grade 3+3, in one of one core, [...] CORE BIOPSY: - Minute focus of adenocarcinoma, [place] grade 3+3, in one of one core, [...] LATERAL BASE, NEEDLE CORE BIOPSY: - Adenocarcinoma, [place] grade 3+3, in one of one core, [...] 3.8 09/23/17 5.9 02/02/18 5.7 06/08/18 5.7 No results found for: PSA BMP: Lab Results Component Value Date CREATININE 1.10 08/20/2016 Assessment / Plan: 1. Prostate cancer (HCC-CMS) 2. ED (erectile dysfunction) of organic origin 3. Elevated PSA He has no convincing evidence of disease progression. He will return in 6 months for a PSA and he will continue on . He as been by XRT and this may be his best option if he decides to proceed. He is currently favoring a seed implant. Discussed : seed implants, XRT and surgery as potential therapeutic options. He has the NCCN patient guidelines for prostate cancer. He will start Sildenafil 100 mg . Dosing and side effects were reviewed. No orders of the defined types were placed in this encounter. Edward Myers MD documented in this encounter Plan of Treatment Upcoming Encounters Date Type Specialty Care Team Description 07/12/2022 Post-op Visit Ophthalmology Jacky Blanchard MD 111 [facility] 5 [place], [place] [phone] (Wo rk) 07/18/2022 Office Visit Urology Edward Myers MD [address] [phone] (Wo rk) documented as of this encounter Visit Diagnoses Diagnosis Prostate cancer (HCC-CMS) (HCC) - Primar y Malignant neoplasm of prostate ED (erectile dysfunction) of organic wilfredo gin Impotence of organic origin Elevated PSA Elevated prostate specific antigen (PSA) documented in this encounter Care Teams Seating And Mobility Technologist Relationship Specialty Start Date End Date Yosi Graham RPA PCP - General 07/05/16 12/17/21 [address] [place] [address] documented as of this encounter
--- OUTSIDE RECORDS SUMMARY | 2022-07-05 02:48 | XMS_ITS | Encounter Summary ---
:1950 Author Organization [facility] Address [address] [place] [address] Care Team Providers Name Role Phone Yosi Graham [facility] Primary Care Provider [phone] Encounter Details Date Type Department Care Team Description 07/08/2016 Pre-Procedure Orders [facility] Madelyn Fisher rd Encounter Urology - Medical MD [place] Office Building [address] [place] [id number] [place] [address] [phone] (Wo rk) Social History Tobacco Use [...] Post-op Visit Ophthalmology Jacky Blanchard MD [address] [phone] (Wo rk) 07/18/2022 Office Visit Urology Jose Carlos Fisher MD 111 [facility], Level 5 [place], [place] [address] (Wo rk) documented as of this encounter Visit Diagnoses Not on filedocumented in this encounter Care Teams Gusset Stitcher Relationship Specialty Start Date End Date Yosi Graham, RPA PCP - General 07/05/16 12/17/[address] [place] [address] documented as of this encounter
--- OUTSIDE RECORDS SUMMARY | 2022-07-05 02:48 | XMS_ITS | Encounter Summary ---
:1950 Author Organization [facility] Address [address] [place] [address] Care Team Providers Name Role Phone Yosi Graham EDER Primary Care Provider [phone] Reason for Visit Reason Comments Prostate Cancer Encounter Details Date Type Department Care Team Description 12/23/2019 Telemedicine [facility] Edward Myers Prost ate cancer ([facility]) (Primary Dx); Urology - Medical MD [place] ED (erectile dysfunction) of [facility] Office Building [address] [place] [address] [place] [address], [place] [address] (Wo rk) Social History Tobacco [...] encounter Progress Notes Edward Myers MD - 12/23/2019 1015 EDT The concept of ???Telemedicine?? has [...] I see Omar Matthews in consultation for No chief complaint on file.. HPI He is here today on a telephone visit for follow-up of his Stage [id number] G 6 CAP on . On 08/20/2016 [...] (Age: 66) M Collect Date: 06/10/2017 Location: [facility] Receive Date: 06/11/2017 Provider: EDWARD MYERS MD Copy to: Final Pathologic Diagnosis: A. PROSTATE, LEFT MID BASE, NEEDLE CORE BIOPSY: - Adenocarcinoma, [place] grade 3+3, in one of one core, [...] CORE BIOPSY: - Minute focus of adenocarcinoma, [place] grade 3+3, in one of one core, [...] 5.7 11/21/18 4.8 06/04/19 5.6 12/2019 6.6 No results found for: PSA BMP: Lab Results Component Value Date CREATININE 1.10 08/20/2016 Assessment / Plan: 1. Prostate cancer (HCC-CMS) 2. ED (erectile dysfunction) of organic origin He has some varability in his PSA and will come in for a PSA and PRATIBHA He will return in 6 months for [...] the prostate or perform a repeat BX. This visit was conducted by telephone. I spent a total of 11 minutes in discussion with the patient as described in the progress note. No orders of the defined types were placed in this encounter. Edward Myers MD documented in this encounter Plan of Treatment Upcoming Encounters Date Type Specialty Care Team Description 07/12/2022 Post-op Visit Ophthalmology Jacky Blanchard MD [address] [phone] (Wo angel) 07/18/2022 Office Visit Urology Edward Myers MD [address] [phone] (Wo rk) documented as of this encounter Visit Diagnoses Diagnosis Prostate cancer (HCC-CMS) (HCC) - Primar y Malignant neoplasm of prostate ED (erectile dysfunction) of organic wilfredo gin Impotence of organic origin documented in this encounter Care Teams Regional Transfer Liaison Relationship Specialty Start Date End Date Yosi Graham, EDRE PCP - General 07/05/16 12/17/[address] [address] documented as of this encounter
--- OUTSIDE RECORDS SUMMARY | 2022-07-05 02:48 | XMS_ITS | Encounter Summary ---
:1950 Author Organization [facility] Address [address] [place] [address] Care Team Providers Name Role Phone Yosi Graham [facility] Primary Care Provider Reason for Visit Reason Onset Date Comments Pre-visit Orders 06/26/2020 Encounter Details Date Type Department Care Team Description 06/26/2020 Telephone [facility] Jose Carlos Fisher Pre-v isit Orders Urology - Medical Office MD [place] [address], Level [address] [phone] (Wo rk) Social History Tobacco Use [...] this encounter Miscellaneous Notes Telephone Encounter - Sera Rosenberg RN - 06/26/2020 0982 EST New PSA order faxed to [facility] per patient request Telephone Encounter - Bozena Meyer - 06/26/2020 0934 EST Needs psa order faxed to [facility] please documented in this encounter Plan of Treatment Upcoming Encounters Date Type Specialty Care Team Description 07/12/2022 Post-op Visit Ophthalmology Jacky Blanchard MD 111 [facility], [facility] 5 [place], [place] [phone] (Wo rk) 07/18/2022 Office Visit Urology Jose Carlos Fisher MD 111 [facility] 5 [place], [place] [phone] (Wo rk) documented as of this encounter Visit Diagnoses Diagnosis Malignant neoplasm of prostate (HCC-CMS) (HCC) - Primary Malignant neoplasm of prostate documented in this encounter Care Teams Machine Lay Out Worker Relationship Specialty Start Date End Date Yosi Graham RPA PCP - General 07/05/16 12/17/[address] [address] documented as of this encounter
--- OUTSIDE RECORDS SUMMARY | 2022-07-05 02:48 | XMS_ITS | Encounter Summary ---
:1950 Author Organization [facility] Address [address] [place] [address] Care Team Providers Name Role Phone Yosi Graham [facility] Primary Care Provider [phone] Encounter Details Date Type Department Care Team Description 12/21/2018 Orders Only [facility] Jose Carlos Fisher [facility] cancer Urology - Jos Sierra MD ([facility]) (Primary Office Building [address] [place] [address]) 792 [facility] [address] [place] [address] (Wo rk) Social History Tobacco [...] 07/12/2022 Post-op Visit Ophthalmology Jacky Blanchard MD [address] [place] [address], [facility] 5 [place], [place] [phone] (Wo rk) 07/18/2022 Office Visit Urology Jose Carlos Fisher MD 111 [place] [facility], [facility] 5 [place], [place] [phone] (Wo rk) documented as of this encounter Visit Diagnoses Diagnosis Prostate cancer (HCC-CMS) (HCC) - Primar y Malignant neoplasm of prostate documented in this encounter Care Teams Drag Out Man Relationship Specialty Start Date End Date Yosi Graham RPA PCP - General 07/05/16 12/17/[address] [place] [address] documented as of this encounter
--- OUTSIDE RECORDS SUMMARY | 2022-07-05 02:48 | XMS_ITS | Encounter Summary ---
:1950 Author Organization [facility] Address [address] [place] [address] Care Team Providers Name Role Phone Yosi Graham [facility] Primary Care Provider [phone] Reason for Visit Reason Onset Date Comments Appointment Related 04/26/2020 Encounter Details Date Type Department Care Team Description 04/26/2020 Telephone [facility] Jacky Blanchard MD Appointment Related Ophthalmology - [address] [place] [address] [place], [place] [phone] (Wo rk) Social History Tobacco Use Types [...] this encounter Miscellaneous Notes Telephone Encounter - Kathryn Santillan - 04/26/2020 1434 EDT LM Called to set up next appt with Dr Lo RE: 2 week follow Apt needs to be around 10/[address] Lo Santillan 04/26/2020 14:35 documented in this encounter Plan of Treatment Upcoming Encounters Date Type Specialty Care Team Description 07/12/2022 Post-op Visit Ophthalmology Jacky Blanchard MD [address] [phone] (Wo rk) 07/18/2022 Office Visit Urology Jose Carlos Fisher MD [address] [phone] (Wo rk) documented as of this encounter Visit Diagnoses Not on filedocumented in this encounter Care Teams Roller Mill Tender Relationship Specialty Start Date End Date Yosi Graham, EDER PCP - General 07/05/16 12/17/[address] [place] [address] documented as of this encounter
--- OUTSIDE RECORDS SUMMARY | 2022-07-05 02:48 | XMS_ITS | Encounter Summary ---
:1950 Author Organization [facility] Address [address] [place] [address] Care Team Providers Name Role Phone Yosi Graham EDER Primary Care Provider [phone] Encounter Details Date Type Department Care Team Description 08/20/2016 Orders Only [facility] Jose Carlos Fisher PSA (Primary Dx); Urology - Medical MD [place] Family history of prostate cancer Office Building [address] [place] [address] [address] [place] [address] [place] [address] (Wo rk) Social History Tobacco [...] 07/12/2022 Post-op Visit Ophthalmology Jacky Blanchard MD [address] [place] [address] 5 [place], [place] [phone] (Wo rk) 07/18/2022 Office Visit Urology Jose Carlos Fisher MD 111 [facility], [facility] 5 [place], [place] [phone] (Wo rk) Scheduled Orders Name Type Priority Associated Diagnoses Order S chedule SURGICAL PATHOLOGY- Pathology Routine Elevated PSA 1 Occurrences starting ORDER ONLY Family History of 08/20/2016 until Prostate Cancer 08/20/2017 documented as of this encounter Visit Diagnoses Diagnosis Elevated PSA - Primary Elevated prostate specific antigen (PSA) Family history of prostate cancer Family history of malignant neoplasm of prostate documented in this encounter Care Teams Production Expert Relationship Specialty Start Date End Date Yosi Graham RPA PCP - General 07/05/16 12/17/[address] [place] [address] documented as of this encounter
--- OUTSIDE RECORDS SUMMARY | 2022-07-05 02:48 | XMS_ITS | Encounter Summary ---
:[address] [facility] Address [address] [place] [address] Care Team Providers Name Role Phone Yosi Graham [facility] Primary Care Provider [phone] Encounter Details Date Type Department Care Team Description 04/17/2017 Orders Only [facility] Jose Carlos Fisher [facility] cancer Urology - Jos Sierra MD ([facility]) (Primary Office Building [address] [place] [address]) 792 [facility] [address] [place] [address] (Wo rk) Social History Tobacco [...] 07/12/2022 Post-op Visit Ophthalmology Jacky Blanchard MD [address] [place] [address], [facility] 5 [place], [place] [phone] (Wo rk) 07/18/2022 Office Visit Urology Jose Carlos Fisher MD 111 [place] [facility], [facility] 5 [place], [place] [phone] (Wo rk) documented as of this encounter Visit Diagnoses Diagnosis Prostate cancer (HCC-CMS) (HCC) - Primar y Malignant neoplasm of prostate documented in this encounter Care Teams Iron Carrier Relationship Specialty Start Date End Date Yosi Graham RPA PCP - General 07/05/16 12/17/[address] [place] [address] documented as of this encounter
--- OUTSIDE RECORDS SUMMARY | 2022-07-05 02:48 | XMS_ITS | Encounter Summary ---
:[address] [facility] Address [address] [place] [address] Care Team Providers Name Role Phone Yosi Graham EDER Primary Care Provider [phone] Encounter Details Date Type Department Care Team Description 01/16/[address] [facility] Anthony Moreno MD Radiology - Main Cam pus [address] [place] [address] Level [place], [place] [phone] (Wo rk) Social History [...] 07/12/2022 Post-op Visit Ophthalmology Jacky Blanchard MD [address] [place] [address], Level 5 [place], [place] [phone] (Wo rk) 07/18/2022 Office Visit Urology Jose Carlos Fisher MD 111 [facility], Level 5 [place], [place] [address] (Wo rk) documented as of this encounter Visit Diagnoses Not on filedocumented in this encounter Care Teams Engineering And Operations Director Relationship Specialty Start Date End Date Yosi Graham RPA PCP - General 07/05/16 12/17/[address] [place] [address] 1 [place] [address] documented as of this encounter
--- OUTSIDE RECORDS SUMMARY | 2022-07-05 02:48 | XMS_ITS | Encounter Summary ---
:1950 Author Organization [facility] Address [address] [place] [address] Care Team Providers Name Role Phone Yosi Graham [facility] Primary Care Provider [phone] Reason for Visit Reason Comments Infusion Piperacillin/kiesha pre biopsy Encounter Details Date Type Department Care Team Description 08/20/2016 Hospital Encounter [facility] Unknown, P MD britney Elevated PSA Urgent Care Infusion Jose Carlos Fisher MD 111 [facility], Level 5 [place] [address] Center - Fabiola Acosta Rn, Infusion [place] [address] [place] [phone] Social History Tobacco Use Types Packs/Day Years Used Date Smoking Tobacco: Never Alcohol Use Standard Drinks/Week Comments Yes 1 (1 standard drink = 0.6 oz pure alcoho l) Sex Assigned at Date Recorded Not on file documented as of this encounter Last Filed Vital Signs Vital Sign Reading Time Taken Comments Blood Pressure 138/88 08/20/2016 0937 EST Pulse - - Temperature 36.7 ??C (98.1 ??F) 08/20/2016 0937 EST Respiratory Rate 16 08/20/2016 0937 EST Oxygen Saturation - - Inhaled Oxygen Concentration - - Weight - - Height - - Body Mass Index - - documented in this encounter Functional Status Functional [...] as of this encounter Discharge Diagnoses Diagnosis R97.20 Elevated prostate specific antige n [PSA]-R97.20[ICD-10-CM] Z80.42 Family history of malignant neopl asm of prostate-Z80.42[ICD-10-CM] documented in this encounter Medications at Time of Discharge Medication Sig Dispensed Refills Start Date End Date aspirin 81 mg EC tablet Take 81 mg by mouth 0 daily. metoprolol (LOPRESSOR) 25 Take 25 mg by mouth 0 mg tablet daily. ciprofloxacin HCl (CIPRO) One twice a day 7 Tab 0 07/0809/11/2016 500 mg tablet starting the evening before the BX. SAW PALMETTO ORAL Take 900 mg by mouth 0 09/11/2016 daily. Reported on 09/11/2016 documented as of this encounter Discharge Disposition Disposition Code Departure Means Destination Home or Self Fpc documented in this encounter Progress Notes Ml Augustin RN - 08/20/2016 8789 EST Po Matthews admitted to [facility] infusion service for pip/kiesha antibiotic prior to prostate biopsy; as well as creatinine level ; dx R 97.20, z 80.42 Verified Patient's name and date of . Saline lock to right AC upon arrival. Blood drawn for creatinine level prior to antibiotic. Creatinine resulted at 1.10 ( ref range 0.66-1.25 ) PIP /Kiesha started, to infuse over 30 minutes. Urology office notified of the time it was started. ( 1035 ) Med completed infusing at 1112. IV flushed and discontinued ( per conversation 08/19/16 with urology office nurse they would not need IV access.) Pt tolerated infusion well. documented in this encounter Plan of Treatment Upcoming Encounters Date Type Specialty Care Team Description 07/12/2022 Post-op Visit Ophthalmology Jacky Blanchard MD 111 [facility], Level 5 [place], [place] [phone] (Wo rk) 07/18/2022 Office Visit Urology Jose Carlos Fisher MD [address] [phone] (Wo rk) documented as of this encounter Procedures Procedure Name Priority Date/Time Associated Diagnosis Comme nts CREATININE STAT 08/20/2016 9:18 EST Elevated PSA Results for this procedure are i n the results section . documented in this encounter Results CREATININE (08/20/2016 9:18 EST) athologist Signature Creatinine 1.10 0.66 - 08/20/2016 [facility] 1.25 mg/dl 9:48 [facility] GFR, Calculated 71 >60 08/20/2016 [facility] ml/min/1.7 9:48 [facility] 3m2 LABORATORY SERVICES Comment: eGFR calculated using CKD-EPI equation f or non Americans. Multiply eGFR by 1.16 for Americans. Performed at [facility], [place], [place] Specimen Anatomical Collection Method Collection Time Receive d Time (Source) Location / / Volume Laterality Blood specimen BLOOD SPECIMEN / 08/20/2016 9:18 2016 9:32 (specimen) Unknown EST EST Jose Carlos Fisher MD CHEMISTRY & BLOOD GAS ORDERA BLES Performing Organization Address City/State/ZIP Code Phon e Number [facility] [address] [place] [address] SERVICES documented in this encounter Visit Diagnoses Diagnosis Elevated PSA Elevated prostate specific antigen (PSA) documented in this encounter Administered Medications Inactive Administered Medications - up to 3 most recent administrations Medication Order MAR Action Action Date Dose Rate Site piperacillin-tazobactam 4.5 g in Given 08/20/2016 10:35 EST 4.5 g sodium chloride (NS MBP) 0.9 % 100 mL IVPB 4.5 g, intravenous, Administer over 30 Minutes, PRE-OP ONCE, 1 dose, On Fri08/20/16 at 1000, Controlled antibiotic, has ID approved? No: Pre-operative surgical prophylaxis, Routine, Preprocedure documented in this encounter Orders Medications Ordered That Might Not Have Count Last Ord ered Date First Ordered Date Been Administered piperacillin-tazobactam 4.5 g in sodium 1 08/20/19 17 chloride (NS MBP) 0.9 % 100 mL IVPB documented in this encounter Care Teams Membership Director Relationship Specialty Start Date End Date Yosi Graham RPA PCP - General 07/05/16 12/17/[address] [address] documented as of this encounter
--- OUTSIDE RECORDS SUMMARY | 2022-07-05 02:48 | XMS_ITS | Encounter Summary ---
:1950 Author Organization [facility] Address [address] [place] [address] Care Team Providers Name Role Phone Yosi Graham [facility] Primary Care Provider [phone] Reason for Visit Reason Comments Eye Problem Encounter Details Date Type Department Care Team Description 07/14/2020 Post-op Visit [facility] Jacky Blanchard MD Retinal detachment of right eye with mul tiple retinal tears (Primary Dx); Ophthalmology - Main [address] ( posterior vitreous detachment), right eye; [facility] Vitreous syneresis of left eye [address] [place] [address] [address], [place] [address] (Wo rk) Social History Tobacco Use Types [...] encounter Progress Notes Jacky Blanchard MD - 07/14/2020 0900 EST Chief Complaint Patient presents with ??? Eye Problem Comments Patient here for RD repair right eye 03/21/20 and 03/28/20. No eye pain. Vision a little blurry. Mildtearing in mornings. Floaters are gone but still having quick flashes right eye periphery- no changes to this. Left eye gets a little achy. Family history of mac degeneration. No current drops. HPI Location: Right eye Pain: 0 - No pain Quality: Blurry Severity: Moderate Duration: Timing: Lasts: Context: Patient here for RD repair right eye 03/21/20 and 03/28/20. No eye pain. Vision a little blurry. Mild tearing in mornings. Floaters are gone but still having quick flashes right eye periphery- no changes to this. Left eye gets a little achy. Family history of mac degeneration. No current drops. Modifying factors: Associated Signs & Symptoms: s/p RD repair right eye Visual Fluctuations: Flashes Attestation: Base Eye Exam Visual Acuity (Snellen - Linear) Right Left Dist cc 20/25 20/25 Correction: Glasses Tonometry (Applanation, 9:28) Right Left Pressure 20 18 Pupils Pupils APD Right PERRL None Left PERRL None Neuro/Psych Oriented x3: Yes Mood/Affect: Normal Dilation Both eyes: Tropicamide 1%, Phenylephrine 2.5% @ 9:28 Slit Lamp and Fundus Exam External Exam [...] 7:00 to 12:00. No new holes or tears Retina attached, no predisposing lesions Please refer to large retinal drawing. IMAGING: DIAGNOSES: 1. 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 PVD (posterior vitreous detachment), right eye 3. 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 Priscilla Pate (Scribe) documented in this encounter Plan of Treatment Upcoming Encounters Date Type Specialty Care Team Description 07/12/2022 Post-op Visit Ophthalmology Jacky Blanchard MD [address] [phone] (Wo rk) 07/18/2022 Office Visit Urology Jose Carlos Fisher MD [address] [phone] (Wo rk) documented as of this encounter Visit Diagnoses Diagnosis Retinal detachment of right eye with mul tiple retinal tears - Primary PVD (posterior vitreous detachment), rig ht eye Vitreous degeneration Vitreous syneresis of left eye documented in this encounter Eye Exam Visual Acuity (Snellen - Linear) Right eye Left eye Dist cc 20/25 20/25 Correction: Glasses Tonometry (Applanation, 9:28) Right eye Left eye Pressure 20 18 Pupils Pupils APD Right eye PERRL None Left eye PERRL None Neuro/Psych Oriented x3: Yes Mood/Affect: Normal Dilation Both eyes: Tropicamide 1%, Phenylephrine 2.5% @ 9:28 External Exam Right eye Left eye External [...] 7:00 to 12:00. No new holes or tears Care Teams Tax Collector Relationship Specialty Start Date End Date Yosi Graham, EDER PCP - General 07/05/16 12/17/[address] [address] documented as of this encounter
--- OUTSIDE RECORDS SUMMARY | 2022-07-05 02:48 | XMS_ITS | Encounter Summary ---
:1950 Author Organization [facility] Address [address] [place] [address] Care Team Providers Name Role Phone Yosi Graham EDER Primary Care Provider [phone] Reason for Visit Reason Comments Follow-up 3 month PSA Encounter Details Date Type Department Care Team Description 05/02/2017 Office Visit [facility] Edward Myers Prost ate cancer ([facility]-H[facility]) (Primary Dx); Urology - Medical MD Rigo Family history of prostate cancer Office Building [address] [place] [address] [place] [address], [place] [phone] (Wo rk) Social History Tobacco Use Types [...] a physical, mental, or emotional condition, No 05/02/2017 does this person have difficulty doing errands alone such as visiting a doctor's office or shopping? Cognitive Status Response Date of Assessment Because of a physical, mental, or emotional condition, No 05/02/2017 does this person have serious difficulty concentrating, remembering, or making decisions? documented as of this encounter Ordered Prescriptions Prescription Sig Dispensed Refills Start Date End Date ciprofloxacin HCl (CIPRO) Take 1 tablet by 7 Tab 0 04/0507/04/2020 500 mg tablet mouth night before Then 1 tablet by mouth morning of procedure Then take 1 tablet by mouth every 12 hours until gone documented in this encounter Progress Notes Edward Myesr MD - 05/02/2017 0930 EDT Subjective: Patient ID: Omar Matthews is an [address] Yosi Graham has requested that I see Omar Matthews in consultation for Follow-up (3 month PSA). [facility] is here today for follow-up of an elevated PSA. He has a Hx of a rising PSA and 2 brother's with a Hx of CAP. He has been voiding well. He has mild urgency. He has reduced erections. He has a bovine heart valve in placed. He had a TRUS and BX and has a Stage [id number] G6 CAP 11/13 positive all on the [...] (Age: 66) M Collect Date: 08/20/2016 Location: [place] Receive Date: 08/20/2016 Provider: EDWARD MYERS MD [...] the core with the highest Irene score. [place] score can be grouped and range from Prognostic Grade Group I (most favorable) to Prognostic Grade Group V (least favorable). Irene score less than or equal to 6: Prognostic Grade Group I [place] score 3+4=7: Prognostic Grade Group II [place] score 4+3=7: Prognostic Grade Group III [place] score 8: Prognostic Grade Group IV Irene score 9-10: Prognostic Grade Group V References for Prognostic Grade Groups: J Clin Gillespie 2012;30:7092-0065 Renae MOTA. The Irene Grading System (A Complete Guide for Pathologists and Clinicians), LWW, 2013 Marie PM, Nancy PW, Susan AW, Renae MOTA. Prognostic [place] Grade Groupin g: Data based on the modified Irene scoring system. BJU Int 2013;111:753-760 A. PROSTATE, LEFT MID BASE, NEEDLE CORE BIOPSY (1): - Prostatic adenocarcinoma (one tumor focus in 1 of 1 core). - Histologic grade: 3 + 3 = 6 - Primary [place] pattern: Grade 3 - Secondary Irene pattern: Grade 3 - Total Irene score: [...] Primary Irene pattern: Grade 3 - Secondary [place] pattern: Grade 3 - Total Irene score: [...] Secondary Irene pattern: Grade 3 - Total Irene score: [...] 3 + 3 = 6 - Primary [place] pattern: Grade 3 - Secondary [place] pattern: Grade 3 - Total [place] score: 6 - Number of cores positive [...] 08/20/2016 4:43 PM End of Report PSA: 06/2016 : 4.9 04/2017: 3.8 No results found for: PSA BMP: Lab Results Component Value Date CREATININE 1.10 08/20/2016 Prostate TRUS 35 cc prostate Assessment / Plan: 1. Prostate cancer 2. Family history of prostate cancer Stage T2a NXMX CAP G6 CAP. He has done well. He will need a TRUS and BX repeat. Understands that this will help determine his need for therapy . Cipro 500 mg prescribed. No orders of the defined types were placed in this encounter. Edwadr Myers MD documented in this encounter Plan of Treatment Upcoming Encounters Date Type Specialty Care Team Description 07/12/2022 Post-op Visit Ophthalmology Jacky Blanchard MD [address] [phone] (Wo rk) 07/18/2022 Office Visit Urology Edward Myers MD [address] [phone] (Wo rk) documented as of this encounter Visit Diagnoses Diagnosis Prostate cancer (HCC-CMS) (HCC) - Primar y Malignant neoplasm of prostate Family history of prostate cancer Family history of malignant neoplasm of prostate documented in this encounter Care Teams Auto Inspection Specialist Relationship Specialty Start Date End Date Yosi Graham RPA PCP - General 07/05/16 12/17/[address] [address] documented as of this encounter
--- OUTSIDE RECORDS SUMMARY | 2022-07-05 02:48 | XMS_ITS | Encounter Summary ---
:1950 Author Organization [facility] Address [address] [place] [address] Care Team Providers Name Role Phone Yosi Graham [facility] Primary Care Provider [phone] Reason for Visit Reason Onset Date Comments Follow-up 07/11/2016 Encounter Details Date Type Department Care Team Description 07/11/2016 Telephone [facility] Urology - Roxana Coats, RN Follow-up [place] [address] [place] [address] Social History Tobacco Use Types Packs/Day Years [...] this encounter Miscellaneous Notes Telephone Encounter - Missy Howard - 08/07/2016 0908 EST [facility]ointment [facility] on 08/20 @ 10:00 Telephone Encounter - Roxana Mattson RN - 07/12/2016 1129 EST The infusion center will call back riana once the approvals are in place to schedule the patient. Telephone Encounter - Roxana Mattson RN - 07/12/2016 1116 EST Left a message on the infusion center voicemail to return call about scheduling the pre-procedure infusion. Spoke with the infusion center. They will check the availability of infusing zosyn and call us back for scheduling. Telephone Encounter - Roxana Mattson RN - 07/11/2016 1651 EST Spoke with scheduling from the infusion center at [facility]. They don't have availability before 10 am. We will have to call to speak with the nurse regarding this antibiotic to be infused as well. Once established we will have riana call the infusion center to adjust the appointments accordingly. Telephone Encounter - Roxana Mattson RN - 07/11/2016 1612 EST Attempt to call the infusion center at [facility] to schedule the patient's pre truss bx antibiotics. They will return call. documented in this encounter Plan of Treatment Upcoming Encounters Date Type Specialty Care Team Description 07/12/2022 Post-op Visit Ophthalmology Jacky Blanchard MD [address] [phone] (Wo rk) 07/18/2022 Office Visit Urology Jose Carlos Fisher MD [address] [phone] (Wo rk) documented as of this encounter Visit Diagnoses Not on filedocumented in this encounter Care Teams Assembler For Puller Over Hand Relationship Specialty Start Date End Date Yosi Graham, EDER PCP - General 07/05/16 12/17/[address] [place] [address] documented as of this encounter
--- OUTSIDE RECORDS SUMMARY | 2022-07-05 02:48 | XMS_ITS | Encounter Summary ---
:1950 Author Organization [facility] Address [address] [place] [address] Care Team Providers Name Role Phone Yosi Graham [facility] Primary Care Provider [phone] Encounter Details Date Type Department Care Team Description 09/04/2016 Hospital Encounter [facility] Juan Daniel Freitas Radiation Oncology - III, [address] [address] [address], [place] [address] (Wo rk) Social History Tobacco [...] of prostate-C61[I CD-10-CM] documented in this encounter Medications at Time of Discharge Medication Sig Dispensed Refills Start Date End Date aspirin 81 mg EC tablet Take 81 mg by mouth 0 daily. metoprolol (LOPRESSOR) 25 Take 25 mg by mouth 0 mg tablet daily. ciprofloxacin HCl (CIPRO) One twice a day 7 Tab 0 07/0809/11/2016 500 mg tablet starting the evening before the BX. lisinopril (PRINIVIL, Take 10 mg by mouth 0 12/18/2021 ZESTRIL) 10 mg tablet daily. SAW PALMETTO ORAL Take 900 mg by mouth 0 09/11/2016 daily. Reported on 09/11/2016 documented as of this encounter Discharge Disposition Disposition Code Departure Means Destination Home or Self Correction documented in this encounter Plan of Treatment Upcoming Encounters Date Type Specialty Care Team Description 07/12/2022 Post-op Visit Ophthalmology Jacky Blanchard MD [address] [phone] (Wo rk) 07/18/2022 Office Visit Urology Jose Carlos Fisher MD [address] [phone] (Wo rk) documented as of this encounter Visit Diagnoses Not on filedocumented in this encounter Care Teams Net Wpf Developer Relationship Specialty Start Date End Date Yosi Graham, EDER PCP - General 07/05/16 12/17/[address] [place] [address] documented as of this encounter
--- OUTSIDE RECORDS SUMMARY | 2022-07-05 02:48 | XMS_ITS | Encounter Summary ---
:1950 Author Organization [facility] Address [address] [place] [address] Care Team Providers Name Role Phone Yosi Graham [facility] Primary Care Provider [phone] Reason for Visit Reason Comments Eye Problem Encounter Details Date Type Department Care Team Description 03/28/2020 Office Visit [facility] Jacky Blanchard MD Ophthalmology - [address], [address] [place], [place] [address] [place] [address] [phone] (Wo rk) Social History Tobacco Use [...] encounter Progress Notes Jacky Blanchard MD - 03/28/2020 1445 EDT Chief Complaint Patient presents with ??? Eye Problem Comments F/u on HST x 3 s/p Laser Sx 03/21/2020 to right eye. HPI Location: Right eye Pain: 0 - No pain Quality: Blurry Severity: Moderate Duration: Days Timing: Constant Lasts: Continuous Context: F/u on HST x 3 s/p Laser Sx 03/21/2020 to right eye. Modifying factors: No drops. Associated Signs & Symptoms: VA maybe has improved a little. No flashes. Less floaters. No veil or shade over VA. No pain. Visual Fluctuations: Floaters Attestation: Base Eye Exam Visual Acuity (Snellen - Linear) Right Left Dist cc 20/30 -2 20/25 -1 Dist ph cc 20/30 Correction: Glasses Tonometry (Applanation, 14:49) Right Left Pressure 14 Pupils Pupils APD Right PERRL - Left PERRL - Neuro/Psych Oriented x3: Yes Mood/Affect: Normal Dilation Right eye: Tropicamide 1%, Phenylephrine 2.5% @ 14:49 Slit Lamp and Fundus Exam External Exam Right Left External Normal Slit Lamp Exam Right Left Lids/Lashes Normal Conjunctiva/Sclera White and quiet Cornea Clear Anterior Chamber Deep and quiet Iris Dilated pupil Lens Nuclear sclerosis Vitreous Hemorrhage Fundus Exam Right Left Disc Normal Macula flat Vessels Normal Periphery Anterior detachment with 3 - 4 tears well contained by laser barricade from 7:00 to 12:00. Superior barricade appears thin. Requires more laser. Please refer to large retinal drawing. IMAGING: Prophylaxis of Retinal Detachment, Laser - OD - Right Eye #500 spots added to posterior barricade containing detachment. 500 mW, 0.2 sec, higher than usual given laser malfunction. DIAGNOSES: 1. Retinal detachment of right eye with multiple retinal tears PROPHYLAXIS OF RETINAL DETACHMENT, LASER - OD - RIGHT EYE 2. PVD (posterior vitreous detachment), right eye Assessment 16:55 Anterior detachment with 3 - 4 tears well contained by laser barricade from 7:00 to 12:00 right eye s/p laser retinopexy on 03/21/2020 No new holes or tears Superior barricade appears thin. Recommend laser addition today. Patient agrees. Continue to sleep on right side Patient to call with any changes in vision, loss of vision, increase in flashes and floaters ?? Follow up in one week with [facility] I have reviewed the past medical, family, [...] Post-op Visit Ophthalmology Jacky Blanchard MD [address] [phone] (Wo rk) 07/18/2022 Office Visit Urology Jose Carlos Fisher MD [address] [phone] (Wo rk) documented as of this encounter Procedures Procedure Name Priority Date/Time Associated Comments Diagnosis PROPHYLAXIS OF Routine 03/28/2020 15:48 Retinal detachment Res ults for this RETINAL DETACHMENT, EDT of right eye with pro cedure are in LASER - OD - RIGHT multiple retinal the r esults EYE tears section. documented in this encounter Results PROPHYLAXIS OF RETINAL DETACHMENT, LASER - OD - RIGHT EYE (03/28/2020 15:48 EDT) Specimen (Source) Anatomical Location Collection Method / Collectio n Time Received Time / Laterality Volume Narrative [facility] - 03/28/2020 16:55 E DT #500 spots added to posterior barricade containing detachment. 500 mW, 0.2 sec, higher than usual given laser malfunction. Jacky Blanchard MD OPHTH CLINIC PROCEDURES Performing Organization Address City/State/ZIP Code Phon e Number [facility] documented in this encounter Visit Diagnoses Diagnosis Retinal detachment of right eye with mul tiple retinal tears - Primary PVD (posterior vitreous detachment), rig ht eye Vitreous degeneration documented in this encounter Eye Exam Visual Acuity (Snellen - Linear) Right eye Left eye Dist cc 20/30 -2 20/25 -1 Dist ph cc 20/30 Correction: Glasses Tonometry (Applanation, 14:49) Right eye Left eye Pressure 14 Pupils Pupils APD Right eye PERRL - Left eye PERRL - Neuro/Psych Oriented x3: Yes Mood/Affect: Normal Dilation Right eye: Tropicamide 1%, Phenylephrine 2.5% @ 14:49 External Exam Right eye Left eye External Normal Slit Lamp Exam Right eye Left eye Lids/Lashes Normal Conjunctiva/Sclera White and quiet Cornea Clear Anterior Chamber Deep and quiet Iris Dilated pupil Lens Nuclear sclerosis Vitreous Hemorrhage Fundus Exam Right eye Left eye Disc Normal Macula flat Vessels Normal Periphery Anterior detachment with 3 - 4 tears wel l contained by laser barricade from 7:00 to 12:00. Superior b arricade appears thin. Requires more laser. Care Teams Quality Improvement Coordinator Relationship Specialty Start Date End Date Yosi Graham, EDER PCP - General 07/05/16 12/17/[address] [address] documented as of this encounter
--- OUTSIDE RECORDS SUMMARY | 2022-07-05 02:48 | XMS_ITS | Encounter Summary ---
:1950 Author Organization [facility] Address [address] [place] [address] Care Team Providers Name Role Phone Yosi Graham EDER Primary Care Provider [phone] Reason for Visit Reason Comments Biopsy Prostate Encounter Details Date Type Department Care Team Description 08/20/2016 Office Visit [facility] Jose Carlos Myers PSA; Urology - Medical MD Rigo Family history of prostate cancer Office Building [address] [place] [address] [address] [place], [place] [address] [place] [address], [place] [address] (Wo rk) Social History Tobacco [...] asm of prostate-Z80.42[ICD-10-CM] documented in this encounter Discharge Disposition Disposition Code Departure Means Destination Auto Discharge documented in this encounter Procedure Notes Jose Carlos Myers MD - 08/20/2016 1045 EST Procedure: TRUS and BX Procedures Trans Rectal US of the Prostate Indication: Rising PSA, family Hx of CAP, Received IV Zosyn pre-op The patient had an opportunity to discuss [...] carried out using the 7.0 megahertz probe. Music Agent images were obtained. PSA: 4.9 AUA SS:mild Prostate Volume: 35 cc Seminal Vesicles: Normal Symmetric, slight dilatation Transitional Zone : Enlarged Volume: Not measured Peripheral Zone : Mid diffuse hypoechoic changes Central Zone: Normal Capsular distortion: None Comments: Slight abnormality of the mid zone of the prostate The patient was given the usual post-procedure [...] apex prostate on each side. Additional biopsies: None The patient tolerated the procedure well. Digital [...] Visit Ophthalmology Jacky Blanchard MD [address] [phone] (Wo rk) 07/18/2022 Office Visit Urology Jose Carlos Myers MD [address] [phone] (Wo rk) documented as of this encounter Procedures Procedure Name Priority Date/Time Associated Diagnosis Comme [facility] SURGICAL PATHOLOGY Routine 08/20/2016 15:43 Resul ts for this EST procedure are i n the results section. documented in this encounter Results SURGICAL PATHOLOGY (08/20/2016 15:43 EST) Component Value Ref Test Analysis Performed At [facility] Method Time Signature Pathology SURGICAL PATHOLOGY REPORT [facility] MEDICAL Report: Reports generated via electronic interface contain origina l data; CENTER however they are lacking the format of the original report. LABORATORY Caution should be taken when reading/interpreting unformat justyn reports. SERVICES Name: ? OMAR MATTHEWS ? Accession #: ? [id number] ? : ? 1950 (Age: [age]) ??M ? Collect Date: ? 08/20/2016 ? Location: ? [facility] ? Receive Date: ? 08/20/2016 ? Provider: JOSE CARLOS MYERS MD Copy to: ? Final Pathologic Diagnosis: SUMMARY OF CORES A (left mid base) ? 3+3 ? 1/1 ? 27% ? PN B (left mid mid) ? 3+3 ? 1/2 ? 16% ? [3+3 35%; no tumor] ? C (left mid apex) ? 3+3 ? 1/3 ? 8% ?[3+3 25%; no tumor; no tumor] D (left lat base) ?no tumor E (left lat mid) ?3+3 ? 1/2 ? 14% ? [3+3 20%; no tumor] F (left lat apex) ?no tumor G (right mid base) ? DONAL H (right mid mid) ? no tumor I (right mid apex) ? no tumor J (right lat base) ?no tumor K (right lat mid) ?no tumor L (right lat apex) ? no tumor (DONAL: ? atypical small acinar proliferation) (PN: ? perineural invasion) The overall [place] score for this case is based on the core with the highest Irene score. Irene score can be grouped and range from Prognostic Grade Group I (most favorable) to Prognostic Grade Group V (least favorable). Irene score less than or equal to 6: Prognostic Grade Grou p I [place] score 3+4=7: Prognostic Grade Group II [place] score 4+3=7: Prognostic Grade Group III [place] score 8: Prognostic Grade Group IV [place] score 9-10: Prognostic Grade Group V References for Prognostic Grade Groups: J Clin Gillespie 2012;30:1529-9574 Renae MOTA. The [place]erne Grading System (A Comple te Guide for Pathologists and Clinicians), LWW, 2013 Marie PM, Nancy PW, Susan AW, Renae MOTA. Prognostic G leason Grade Grouping: Data based on the modified [place] scoring system. BJU Int 2013;111:753-760 A. PROSTATE, LEFT MID BASE, NEEDLE CORE BIOPSY (1): - ??Prostatic adenocarcinoma (one tumor focus in 1 of 1 core ). ? - ??Histologic grade: ?3 + 3 = 6 ?- ??Primary G leason pattern: ? Grade 3 ?- ??Secondary [place] pattern: ? Grade 3 ?- ??Total Gle ason score: ?6 ? - ??Number of cores positive / to branden number of cores: ?1/1 ? - ??Tumor contiguity: ? Contiguous ? - ??Total linear mill imeters of prostatic tissue: ? 16.6 mm ? - ??Total linear mill imeters of carcinoma: ? 4.5 mm ? - ??Proportion of prostatic tissu e involved by tumor: ?27% ? - ??Perineural invasi on: ? Present ? - ??Lymph-vascular in volvement: ? Not identified ? - ??Periprostatic fat /extra prostatic tissue invasion: ? Not identified ? - ??Seminal vesicle i nvasion: ?Not identified ? - ??High-grade prostatic intraepithelial neopla reinier (PIN): ?Not identified - ??Minute fragments of cryptic colorectal mucosa. B. PROSTATE, LEFT MID MID, NEEDLE CORE BIOPSY (2): - ??Prostatic adenocarcinoma (one tumor focus in 1 of 2 core s). ? - ??Histologic grade: ?3 + 3 = 6 ?- ??Primary G leason pattern: ? Grade 3 ?- ??Secondary Irene pattern: ? Grade 3 ?- ??Total Gle ason score: ?6 ? - ??Number of cores positive / to branden number of cores: ?1/2 ? - ??Tumor contiguity: ? Contiguous ? (3.0 mm 3+3 tumor in 8.5 mm core; 25% involv ement) ? (no tumor in 11.0 mm core) ? - ??Total linear mill imeters of prostatic tissue: ? 19.5 mm (11.0 mm + 8.5 mm) ? - ??Total linear mill imeters of carcinoma: ? 3.0 mm ? - ??Proportion of pro static tissue involved by tumor: ?16 % ? - ??Proportion of prostatic tissue involv ed by tumor for core with the largest amount of tumor: 35 % ? - ??Perineural invasi on: ?Not identified ? - ??Lymph-vascular in volvement: ? Not identified ? - ??Periprostatic fat /extra prostatic tissue invasion: ? Not identified ? - ??Seminal vesicle i nvasion: ?Not identified ? - ??High-grade prostatic intraepithelial neopla reinier (PIN): ?Not identified C. PROSTATE, LEFT MID APEX, NEEDLE CORE BIOPSY (3): - ??Prostatic adenocarcinoma (one tumor focus in 1 of 3 core s). ? - ??Histologic grade: ?3 + 3 = 6 ?- ??Primary G leason pattern: ? Grade 3 ?- ??Secondary [place] pattern: ? Grade 3 ?- ??Total Gle ason score: ?6 ? - ??Number of cores positive / to branden number of cores: ?1/3 ? - ??Tumor contiguity: ? Contiguous ? (1.5 mm 3+3 tumor in 6.0 mm core; 25% involv ement) ? (no tumor in 9.6 mm core) ? (no tumor in 3.8 mm core) ? - ??Total linear mill imeters of prostatic tissue: ? 19.4 mm (9.6 mm + 6.0 mm + 3.8 mm) ? - ??Total linear mill imeters of carcinoma: ? 1.5 mm ? - ??Proportion of prostatic tissu e involved by tumor: ?8 % ? - ??Proportion of prostatic tissue involv ed by tumor for core with the largest amount of tumor: 25 % ? - ??Perineural invasi on: ?Not identified ? - ??Lymph-vascular in volvement: ? Not identified ? - ??Periprostatic fat /extra prostatic tissue invasion: ? Not identified ? - ??Seminal vesicle i nvasion: ?Not identified ? - ??High-grade prostatic intraepithelial neopla reinier (PIN): ?Not identified D. PROSTATE, LEFT LATERAL BASE, NEEDLE CORE BIOPSY (2): - ??Prostatic glands and stroma with no specific histopathol ogic features. E. PROSTATE, LEFT LATERAL MID, NEEDLE CORE BIOPSY (2): - ??Prostatic adenocarcinoma (one tumor focus in 1 of 2 core s). ? - ??Histologic grade: ?3 + 3 = 6 ?- ??Primary G leason pattern: ? Grade 3 ?- ??Secondary Irene pattern: ? Grade 3 ?- ??Total Gle ason score: ?6 ? - ??Number of cores positive / to branden number of cores: ?1/2 ? - ??Tumor contiguity: ? Contiguous ? (1.6 mm 3+3 tumor in 8.0 mm core; 20% involv ement) ? (no tumor in 4.0 mm core) ? - ??Total linear mill imeters of prostatic tissue: ? 12.0 mm (8.0 mm + 4.0 mm) ? - ??Total linear mill imeters of carcinoma: ? 1.6 mm ? - ??Proportion of pro static tissue involved by tumor: ?14 % ? - ??Proportion of prostatic tissue involv ed by tumor for core with the largest amount of tumor: 20 % ? - ??Perineural invasi on: ?Not identified ? - ??Lymph-vascular in volvement: ? Not identified ? - ??Periprostatic fat /extra prostatic tissue invasion: ? Not identified ? - ??Seminal vesicle i nvasion: ?Not identified ? - ??High-grade prostatic intraepithelial neopla reinier (PIN): ?Not identified F. PROSTATE, LEFT LATERAL APEX, NEEDLE CORE BIOPSY (3): - ??Prostatic glands and stroma with no specific histopathol ogic features. G. PROSTATE, RIGHT MID BASE, NEEDLE CORE BIOPSY (1): - ??Atypical small acinar proliferation (DONAL). H. PROSTATE, RIGHT MID MID, NEEDLE CORE BIOPSY (1): - ??Prostatic glands and stroma with focal basal cell hyperp lasia. - ??Minute fragment of colorectal mucosa with no specific hi stopathologic features. I. PROSTATE, RIGHT MID APEX, NEEDLE CORE BIOPSY (2): - ??Prostatic glands and stroma with atrophy. J. PROSTATE, RIGHT LATERAL BASE, NEEDLE CORE BIOPSY (2): - ??Prostatic glands and stroma with no specific histopathol ogic features. K. PROSTATE, RIGHT LATERAL MID, NEEDLE CORE BIOPSY (2): - ??Prostatic glands and stroma with no specific histopathol ogic features. L. PROSTATE, RIGHT LATERAL APEX, NEEDLE CORE BIOPSY (3): - ??Prostatic glands and stroma with focal atrophy. Document reviewed and electronically signed by: Pastor Odell MD Report ??Date: 08/24/2016 11:00 By the signature above, the [...] mid base H. ??Right mid mid I. ?? Right mid apex J. ??Right lateral base K. ??Right lateral mid L. ??Right lateral apex Clinical History: Elevated PSA; clinical diagnosis code: R97.20, Z80.42 Gross Description: A. ?Received in formalin labelled with proper patie nt identification (initials D, J) and left mi d base is a single garcia-white tissue core (1.4 cm in length x 0.1 cm in diameter). Submitted intact in A1. B. ?Received in formalin labelled with proper patie nt identification (initials D, J) and left mid mid are two garcia-w kanwal tissue cores (0.5 cm and 1.0 cm in length, and each 0.1 cm in diameter). Entirely sub mitted in B1. C. ?Received in formalin labelled with proper patie nt identification (initials D, J) and left mi d apex is a single garcia-white tissue core [...] J) and left lateral mid are two t an-white tissue cores (0.6 cm and 1.0 cm in length, and each 0.1 cm in diamete r). Entirely submitted in E1. F. ?Received in formalin labelled [...] and right m id mid is a single garcia-white tissue core (1.4 cm in length x 0.1 cm in diameter). Submitted intact in H1. I. ?Received in formalin labelled with proper patie nt identification (initials D, J) and right m id apex are two garcia-white tissue cores (0.6 cm and 1.0 cm, and each 0.1 cm in diameter). Entirely submitted in I1. J. ?Received in formalin labelled with proper patie nt identification (initials D, J) and right l ateral base is a single garcia-white tissue core (1.3 cm in length x 0.1 cm in diameter). Submitted intact in J1. K. ?Received in formalin labelled with proper patie nt identification (initials D, J) and right lateral mid are two garcia-white tissue cores (0.6 cm and 0.7 cm in length, and each 0.1 cm in diamete r). Entirely submitted in K1. L. ?Received in formalin labelled with proper patie nt identification (initials D, J) and right l ateral apex are two garcia-white tissue cores (1.0 cm and 1.3 cm in length, and each 0.1 cm in diamete r). Entirely submitted in L1. MAYE Walsh (ASCP) 08/20/2016 4:43 PM End of Report Specimen Anatomical Collection Method Collection Time Receive d Time (Source) Location / / Volume Laterality 08/20/2016 15:43 08/20/2016 EST 15:43 EST Jose Carlos Myers MD PATHOLOGY ORDERABLES Performing Organization Address City/State/ZIP Code Phon e Number [facility] [address] [place] [address] SERVICES documented in this encounter Visit Diagnoses Diagnosis Elevated PSA Elevated prostate specific antigen (PSA) Family history of prostate cancer Family history of malignant neoplasm of prostate documented in this encounter Orders Lab Orders Without Results Count Last Ordered Date Fir st Ordered Date SURGICAL PATHOLOGY- ORDER ONLY 1 08/20/2016 documented in this encounter Care Teams Roller Skater Relationship Specialty Start Date End Date Yosi Graham RPA PCP - General 07/05/16 12/17/[address] [place] [phone] documented as of this encounter
--- OUTSIDE RECORDS SUMMARY | 2022-07-05 02:48 | XMS_ITS | Encounter Summary ---
:1950 Author Organization [facility] Address [address] [place] [address] Care Team Providers Name Role Phone Yosi Graham [facility] Primary Care Provider [phone] Reason for Visit Reason Comments Eye Problem Encounter Details Date Type Department Care Team Description 03/23/2020 Office Visit [facility] Jacky Blanchard MD Ophthalmology - [address], [address] [place], [place] [address] [place] [address] [phone] (Wo rk) Social History Tobacco Use [...] encounter Progress Notes Jacky Blanchard MD - 03/23/2020 1515 EDT Chief Complaint Patient presents with ??? Eye Problem Comments HST x 3 right eye with fluid, s/p laser 03/21/2020. HPI Location: Right eye Pain: 0 - No pain Quality: Blurry Severity: Moderate Duration: Days Timing: Constant Lasts: Continuous Context: HST x 3 right eye with fluid, s/p laser 03/21/2020. Modifying factors: Vision is the same, no flashes, has same stringy floaters in the right eye. No eye pain, little sore from laser. Associated Signs & Symptoms: Visual Fluctuations: Floaters Attestation: Base Eye Exam Visual Acuity (Snellen - Linear) Right Left Dist cc 20/50 +1 20/25 -2 Correction: Glasses Tonometry (Applanation, 15:22) Right Left Pressure 14 19 Neuro/Psych Oriented x3: Yes Mood/Affect: Normal Dilation Both eyes: Tropicamide 1%, Phenylephrine 2.5% @ 15:23 Slit Lamp and Fundus Exam External Exam Right Left External Normal Slit Lamp Exam Right Left Lids/Lashes Normal Conjunctiva/Sclera White and quiet Cornea Clear Anterior Chamber Deep and quiet Iris Dilated pupil Lens Trace Nuclear sclerosis Vitreous Hemorrhage Fundus Exam Right Left Disc Normal Macula flat Vessels Normal Periphery Anterior detachment with 3 - 4 tears well contained by laser barricade from 7:00 to 12:00 Please refer to large retinal drawing. DIAGNOSES: 1. Retinal tear of right eye Assessment Anterior detachment with 3 - 4 tears well contained by laser barricade from 7:00 to 12:00 right eye s/p laser retinopexy on 03/21/2020 No new holes or tears Continue to sleep on right side Skip lunch on day of follow up next visit in case of the need for surgery Patient to call with any changes in vision, loss of vision, increase in flashes and floaters Follow up in 5 days or sooner PRN I have reviewed the past [...] he is personally performing the service. VINH Smallwood 16:41 (Scribe) documented in this encounter Plan of Treatment Upcoming Encounters Date Type Specialty Care Team Description 07/12/2022 Post-op Visit Ophthalmology Jacky Blanchard MD [address] [phone] (Wo rk) 07/18/2022 Office Visit Urology Jose Carlos Fisher MD [address] [phone] (Wo rk) documented as of this encounter Visit Diagnoses Diagnosis Retinal tear of right eye - Primary documented in this encounter Eye Exam Visual Acuity (Snellen - Linear) Right eye Left eye Dist cc 20/50 +1 20/25 -2 Correction: Glasses Tonometry (Applanation, 15:22) Right eye Left eye Pressure 14 19 Neuro/Psych Oriented x3: Yes Mood/Affect: Normal Dilation Both eyes: Tropicamide 1%, Phenylephrine 2.5% @ 15:23 External Exam Right eye Left eye External Normal Slit Lamp Exam Right eye Left eye Lids/Lashes Normal Conjunctiva/Sclera White and quiet Cornea Clear Anterior Chamber Deep and quiet Iris Dilated pupil Lens Trace Nuclear sclerosis Vitreous Hemorrhage Fundus Exam Right eye Left eye Disc Normal Macula flat Vessels Normal Periphery Anterior detachment with 3 - 4 tears wel l contained by laser barricade from 7:00 to 12:00 Care Teams Unloading Checker Relationship Specialty Start Date End Date Yosi Graham, RPA PCP - General 07/05/16 12/17/[address] [address] documented as of this encounter
--- OUTSIDE RECORDS SUMMARY | 2022-07-05 02:48 | XMS_ITS | Encounter Summary ---
:1950 Author Organization [facility] Address [address] [place] [address] Care Team Providers Name Role Phone Yosi Graham [facility] Primary Care Provider [phone] Reason for Visit Reason Comments Eye Problem Encounter Details Date Type Department Care Team Description 04/26/2020 Office Visit [facility] Jacky Blanchard MD Ophthalmology - [address], [address] [place], [place] [address] [place] [address] [phone] (Wo rk) Social History Tobacco Use [...] encounter Progress Notes Jacky Blanchard MD - 04/26/2020 0815 EDT Chief Complaint Patient presents with ??? Eye Problem Comments F/u on HST right eye s/p Laser x 2. VA improving. Still a bet hazy but better. No new F and F. No veil or shade over VA. No pain. HPI Location: Right eye Pain: 0 - No pain Quality: Blurry Severity: Moderate Duration: Days Timing: Constant Lasts: Continuous Context: F/u on HST x 3 s/p Laser Sx 03/21/2020 to right eye. Modifying factors: No drops. Associated Signs & Symptoms: F/u on HST right eye s/p Laser x 2. VA improving. Still a bet hazy but better. No new F and F. No veil or shade over VA. No pain. Visual Fluctuations: Floaters, Flashes Attestation: Base Eye Exam Visual Acuity (Snellen - Linear) Right Left Dist cc 20/25 -2 20/25 -2 Tonometry (Applanation, 8:34) Right Left Pressure 18 Neuro/Psych Oriented x3: Yes Mood/Affect: Normal Dilation Right eye: Tropicamide 1%, Phenylephrine 2.5% @ 8:34 Slit Lamp and Fundus Exam External Exam Right Left External Normal Slit Lamp Exam Right Left Lids/Lashes Normal Normal Conjunctiva/Sclera White and quiet White and quiet Cornea Clear Clear Anterior Chamber Deep and quiet Deep and quiet Iris Dilated pupil Round and reactive Lens Nuclear sclerosis Vitreous Posterior vitreous detachment; mild residual vit heme Fundus Exam Right Left Disc Normal Macula flat Vessels Normal Periphery Anterior detachment with multiple tears, well contained by laser barricade from 7:00 to 12:00. No new holes or tears Please refer to large retinal drawing. DIAGNOSES: 1. Retinal detachment of right eye with multiple retinal tears Assessment Anterior detachment with multiple tears well contained by laser barricade from 7:00 to 12:00,??right eye s/p laser??retinopexy??on 03/21/2020 and 03/28/2020 No new holes or tears Continue observation Will extend to 2 weeks Patient to call with any changes in vision, loss of vision, increase in flashes and floaters Retinal detachment warnings discussed I have reviewed the past medical, family, [...] he is personally performing the service. DWIGHT Jara (Scribe) documented in this encounter Plan of Treatment Upcoming Encounters Date Type Specialty Care Team Description 07/12/2022 Post-op Visit Ophthalmology Jacky Blanchard MD [address] [phone] (Wo rk) 07/18/2022 Office Visit Urology Jose Carlos Fisher MD [address] [phone] (Wo rk) documented as of this encounter Visit Diagnoses Diagnosis Retinal detachment of right eye with mul tiple retinal tears - Primary documented in this encounter Eye Exam Visual Acuity (Snellen - Linear) Right eye Left eye Dist cc 20/25 -2 20/25 -2 Tonometry (Applanation, 8:34) Right eye Left eye Pressure 18 Neuro/Psych Oriented x3: Yes Mood/Affect: Normal Dilation Right eye: Tropicamide 1%, Phenylephrine 2.5% @ 8:34 External Exam Right eye Left eye External Normal Slit Lamp Exam Right eye Left eye Lids/Lashes Normal Normal Conjunctiva/Sclera White and quiet White and quiet Cornea Clear Clear Anterior Chamber Deep and quiet Deep and quiet Iris Dilated pupil Round and reactive Lens Nuclear sclerosis Vitreous Posterior vitreous detachment; mild resi dual vit heme Fundus Exam Right eye Left eye Disc Normal Macula flat Vessels Normal Periphery Anterior detachment with multiple tears, well contained by laser barricade from 7:00 to 12:00. No new hol es or tears Care Teams Motion Picture Director Relationship Specialty Start Date End Date Yosi Graham, EDER PCP - General 07/05/16 12/17/21 [address] [facility] [address] [place] [address] documented as of this encounter
--- OUTSIDE RECORDS SUMMARY | 2022-07-05 02:48 | XMS_ITS | Encounter Summary ---
:1950 Author Organization [facility] Address [address] [place] [address] Care Team Providers Name Role Phone Yosi Graham EDER Primary Care Provider [phone] Reason for Visit Reason Comments Follow-up PSA Encounter Details Date Type Department Care Team Description 02/20/2018 Office Visit [facility] Edward Myers Prost ate cancer ([facility]) (Primary Dx); Urology - Medical MD [place] ED (erectile dysfunction) of [facility] Office Building [address] [place] [address] [place] [address], [place] [phone] (Wo rk) Social History Tobacco Use Types [...] CD-10-CM] N52.9 Male erectile dysfunction, unspeci fied-N52.9[ICD-10-CM] documented in this encounter Discharge Disposition Disposition Code Departure Means Destination Auto Discharge documented in this encounter Progress Notes Edward Myers MD - 02/20/2018 0945 EDT Subjective: Patient ID: Omar Matthews is an [address] Yosi Graham has requested that I see Omar Matthews in consultation for Follow-up (PSA). HPI He is here today for follow-up of his Stage [id number] G 6 CAP on . On 08/20/2016 [...] has a bovine heart valve in placed. Patient Active Problem List Diagnosis ??? Malignant [...] (Age: 66) M Collect Date: 06/10/2017 Location: [facility] Receive Date: 06/11/2017 Provider: EDWARD MYERS MD [...] CORE BIOPSY: - Minute focus of adenocarcinoma, Middleton grade 3+3, in one of one core, [...] 4.9 04/2017: 3.8 09/23/17 5.9 02/02/18 5.7 No results found for: PSA BMP: Lab Results Component Value Date CREATININE 1.10 08/20/2016 Assessment / Plan: 1. Prostate cancer (HCC-CMS) 2. ED (erectile dysfunction) of organic origin He has no convincing evidence of disease progression. He will return in 4 months for a PSA and he will continue on . Discussed : seed implants, XRT and surgery as potential therapeutic options. He was given the NCCN patient guideline for prostate cancer He has ED : Declined therapy . No orders of the defined types were placed in this encounter. Edward Myers MD documented in this encounter Plan of Treatment Upcoming Encounters Date Type Specialty Care Team Description 07/12/2022 Post-op Visit Ophthalmology Jacky Blanchard MD 111 [facility] 5 [place], [place] [phone] (Wo rk) 07/18/2022 Office Visit Urology Edward Myers MD 111 [facility] 5 [place], [place] [phone] (Wo rk) documented as of this encounter Visit Diagnoses Diagnosis Prostate cancer (HCC-CMS) (HCC) - Primar y Malignant neoplasm of prostate ED (erectile dysfunction) of organic wilfredo gin Impotence of organic origin documented in this encounter Care Teams Pearl Glue Operator Relationship Specialty Start Date End Date Yosi Graham RPA PCP - General 07/05/16 12/17/[address] [address] documented as of this encounter
--- OUTSIDE RECORDS SUMMARY | 2022-07-05 02:48 | XMS_ITS | Encounter Summary ---
:1950 Author Organization [facility] Address [address] [place] [address] Care Team Providers Name Role Phone Unavailable Primary Care Provider Unavailable Encounter Details Date Type Department Care Team Description 03/16/2008 Before PRISM Converted [facility] - Clarice Casillas, Visit (Maple) Maple conversion PA [address] [facility] [address] [place] [address] [place], [place] [phone] [address] Social History Tobacco Use Types Packs/Day Years Used Date Smoking Tobacco: Never Assessed Sex Assigned at Date Recorded Not on file documented as of this encounter Plan of Treatment Upcoming Encounters Date Type Specialty Care Team Description 07/12/2022 Post-op Visit Ophthalmology Jacky Blanchard MD [address] [address] (Wo rk) 07/18/2022 Office Visit Urology Jose Carlos Fisher MD [address] [address] (Wo rk) documented as of this encounter Procedures Procedure Name Priority Date/Time Associated Diagnosis Comme nts CYTOPATHOLOGY Routine 03/16/2008 0:00 EDT Results for this procedure are i n the results section . documented in this encounter Results CYTOPATHOLOGY (03/16/2008 0:00 EDT) Component Value Ref Test Analysis Performed At [facility] gist Range Method Time Signature Pathology CYTOPATHOLOGY REPORT ? LEDESMA Report: ? [facility] Reports generated via electr GEOLID interface contain original data; ? however they are lacking the format of the original report. ? Caution should be taken when reading/interpreting unformatted reports. ? Name: ? OMAR MATTHEWS ? Accession #: ? [id number] ? : ? 1950 (Age: 57) ??M ?Collect Date: ? 03/16/2008 ? Location: ? [facility] ? Receive Date: ? 03/18/2008 ? Provider: ? ROGER GLEIN ER PA ? Copy to: ? Specimen Type: ? Urine, Voided ? Clinical History: ? Hematuria ? Gross Description: ?20 cc' s of clear, dark yellow fluid were received and processed by ? selective cellular enhanceme nt technique. ? CYTOLOGIC DIAGNOSIS: ? Urine, voided, cytolo gic evaluation: ? 1. ?No malignan t cells identified. ? 2. ? Extremely scant moshe ple, rare squames and urothelial cells. ? 3. ? Blood and inflammat ory cells in the background. ? Document reviewed and electr onically signed by: ? Mitchell Juan, MBBCh ? Report Date: ??03/18/2008 15 :03 ? By the signature above, the attending physician certifies that he/she has ? personally conducted a gross and/or microscopic examination of the described ? specimens and rendered or co nfirmed the above diagnosis. ? End of Report ? Specimen (Source) Anatomical Collection Method Collection Time Re ceived Time Location / / Volume Laterality 03/16/2008 03/18/2008 8:36 EDT Roger [facility] ORDERABLES Performing Organization Address City/State/ZIP Code Phon e Number [facility] [address] [place] [address] SERVICES [facility] [address] [place] [address] documented in this encounter Visit Diagnoses Not on filedocumented in this encounter
--- OUTSIDE RECORDS SUMMARY | 2022-07-05 02:48 | XMS_ITS | Encounter Summary ---
:1950 Author Organization [facility] Address [address] [place] [address] Care Team Providers Name Role Phone Yosi Graham [facility] Primary Care Provider [phone] Encounter Details Date Type Department Care Team Description 06/05/2018 Orders Only [facility] Jose Carlos Fisher ate cancer Urology - Jos Sierra MD ([facility]) (Primary Office Building [address] [place] [address]) 7[address] [facility] [address] [place] [address] (Wo rk) Social History Tobacco [...] 07/12/2022 Post-op Visit Ophthalmology Jacky Blanchard MD [address] [place] [address], [facility] [address] [place], [place] [phone] (Wo rk) 07/18/2022 Office Visit Urology Jose Carlos Fisher MD [address] [place] [address] [facility], [facility] [address] [place], [place] [address] (Wo rk) documented as of this encounter Visit Diagnoses Diagnosis Prostate cancer (HCC-CMS) (HCC) - Primar y Malignant neoplasm of prostate documented in this encounter Care Teams Foot Cutter Relationship Specialty Start Date End Date Yosi Graham RPA PCP - General 07/05/16 12/17/[address] [place] [address] documented as of this encounter
--- OUTSIDE RECORDS SUMMARY | 2022-07-05 02:48 | XMS_ITS | Encounter Summary ---
:1950 Author Organization [facility] Address [address] [place] [address] Care Team Providers Name Role Phone Yosi Graham RPA Primary Care Provider [phone] Reason for Visit Reason Comments New Patient Visit Elevated PSA Consult (Routine) - Closed Specialty Diagnoses / Procedures Referred By Contact Refer red To Contact Urology Diagnoses Elevated PSA Yosi Graham RPA [facility] Ep5 Urology [address] [place] [address] [place] [address] [place] [address] Fax: Referral ID Status Reason Start Date Expiration Date Visits Requ ested Visits Authorized [id number] Closed 1 1 Encounter Details Date Type Department Care Team Description 07/08/2016 Office Visit [facility] Jose Carlos Fisher PSA (Primary Dx); Urology - Medical MD Rigo Family hx of prostate cancer Office Building [address] [place], [place] [address] [place] [address], [place] [address] (Wo rk) Social History Tobacco Use Types Packs/Day Years Used Date Smoking Tobacco: Never Sex Assigned at Date Recorded Not on file documented as of this encounter Last Filed Vital Signs Vital Sign Reading Time Taken Comments Blood Pressure - - Pulse - - Temperature - - Respiratory Rate - - Oxygen Saturation - - Inhaled Oxygen Concentration - - Weight 90.7 kg (200 lb) 07/08/2016 1559 EST Height 167.6 cm (5' 6) 07/08/2016 1559 EST Body Mass Index 32.28 07/08/2016 1559 EST documented in this encounter [...] tablet starting the evening before the BX. documented in this encounter Progress Notes Jose Carlos Fisher MD - 07/08/2016 1530 EST Subjective: Patient ID: Po Matthews is an [address] Yosi Graham has requested that I see Po Matthews in consultation for New Patient Visit(Elevated PSA). [facility] is here today for the evaluation and management of an elevated PSA. He has a Hx of a rising PSA and 2 brother's with a Hx of CAP. He has been voiding well. He has mild urgency. He has reduced erections. He has a bovine heart valve in placed. There is no problem list on file for this patient. No past medical history on file. No past surgical history on file. No family history on file. Social Social History Substance Use Topics ??? Smoking status: Never Smoker ??? Smokeless tobacco: None ??? Alcohol use None No current outpatient prescriptions on file prior to visit. No current facility-administered medications on file prior to visit. Allergies no known allergies ROS - see scanned note. Objective: Visit Vitals ??? Ht 167.6 cm (66) ??? Wt 90.7 kg (200 lb) ??? BMI 32.28 kg/m2 Physical Exam Constitutional: He is oriented to person, place, and time. He appears well- developed and well-nourished. HENT: Head: Normocephalic and atraumatic. Pulmonary/Chest: Effort normal. Genitourinary: Rectum normal, testes normal and penis normal. Prostate is enlarged (firm throughout). Neurological: He is alert and oriented to person, place, and time. Skin: Skin is dry. Psychiatric: He has a normal mood and affect. His behavior is normal. Judgment and thought content normal. PSA : 3.7 to 4.9 in 1 year. Office Visit on 07/08/2016 Component Date Value Ref Range Status ??? Color 07/08/2016 YELLOW Final ??? Clarity, UA 07/08/2016 Clear Final ??? Glucose 07/08/2016 Neg Neg Final ??? Bilirubin 07/08/2016 Neg Neg Final ??? Ketones 07/08/2016 Neg Neg Final ? ? Specific [place] 07/08/2016 >=1.030 1.001 - 1.035 Final ??? Blood 07/08/2016 Neg Neg Final ??? pH 07/08/2016 5.5 4.6 - 8.0 Final ??? Protein 07/08/2016 Neg Neg Final ??? Urobilinogen 07/08/2016 0.2 0.2 - 1.0 E.U./dl Final ??? Nitrite 07/08/2016 Neg Neg Final ??? Leuk Esterase 07/08/2016 Neg Neg Final ??? Tech ID 07/08/2016 [id number] Final Test performed at [facility] Urology PSA: No results found for: PSA BMP: No results found for: NA, K, CL, CO2, BUN, CREATININE, CALCIUM, CALCCA, MG, PHOS, LABALBU Assessment / Plan: 1. Elevated PSA 2. Family hx of prostate cancer He has a rise in his PSA and a slightly abnormal PRATIBHA. We discussed : TRUS and BX, the potential risk. He has elected to proceed. Zosyn and cipro pre-op. Other Orders Placed This Visit Procedures ??? POCT Urine Dipstick Jose Carlos Fisher MD documented in this encounter Plan of Treatment Upcoming Encounters Date Type Specialty Care Team Description 07/12/2022 Post-op Visit Ophthalmology Jacky Blanchard MD [address] [place] [address], [address] [place], [place] [phone] (Wo rk) 07/18/2022 Office Visit Urology Jose Carlos Fisher MD [address] [place] [address] [facility], [facility] [address] [place] [address] (Wo rk) documented as of this encounter Procedures Procedure Name Priority Date/Time Associated Diagnosis Comme nts POCT URINE Routine 07/08/2016 16:20 Elevated PSA Results for this DIPSTICK, CLINITEK EST procedure are in the results section. documented in this encounter Results POCT URINE DIPSTICK (07/08/2016 16:20 EST) [facility] Method Time Signature Color YELLOW 07/08/2016 [facility] 16:09 EST [facility] Clarity, UA Clear 07/08/2016 [facility] 16:09 EST [facility] Glucose Neg Neg 07/08/2016 [facility] 16:09 EST [facility] Bilirubin Neg Neg 07/08/2016 [facility] 16:09 EST [facility] Ketones Neg Neg 07/08/2016 [facility] 16:09 EST [facility] Specific [place] >=1.030 1.001 - 07/08/2016 [facility] 1.035 16:09 EST [facility] Blood Neg Neg 07/08/2016 [facility] 16:09 EST [facility] pH 5.5 4.6 - 8.0 07/08/2016 [facility] 16:09 EST [facility] Protein Neg Neg 07/08/2016 [facility] 16:09 EST [facility] Urobilinogen 0.2 0.2 - 1.0 07/08/2016 [facility] E.U./dl 16:09 EST [facility] Nitrite Neg Neg 07/08/2016 [facility] 16:09 EST [facility] Leuk Esterase Neg Neg 07/08/2016 [facility] 16:09 EST [facility] patroller ID [id number] 07/08/2016 [facility] 16:09 EST [facility] Comment: Test performed at [facility] Specimen Anatomical Collection Method Collection Time Receive d Time (Source) Location / / Volume Laterality Urine URINE / Unknown 07/08/2016 16:20 07/08/20 16 (substance) EST 16:09 EST Jose Carlos Fisher MD POINT OF CARE TEST ORDERABLE S Performing Organization Address City/State/ZIP Code Phon e Number [facility] [address] [place] [address] SERVICES documented in this encounter Visit Diagnoses Diagnosis Elevated PSA - Primary Elevated prostate specific antigen (PSA) Family hx of prostate cancer Family history of malignant neoplasm of prostate documented in this encounter Historical Medications This list may reflect changes made after this encounter. Medication Sig Dispensed Refills Start Date End Date aspirin 81 mg EC tablet Take 81 mg by mouth 0 daily. metoprolol (LOPRESSOR) Take 25 mg by mouth 0 25 mg tablet daily. SAW RICHARD ORAL Take 900 mg by mouth 0 09/11/2016 daily. Reported on 09/11/2016 added in this encounter Care Teams Field Service Manager Relationship Specialty Start Date End Date Yosi Graham RPA PCP - General 07/05/16 12/17/[address] [place] [address] documented as of this encounter
--- OUTSIDE RECORDS SUMMARY | 2022-07-05 02:49 | XMS_ITS | Encounter Summary ---
:1950 Author Organization [facility] [place] [address] Care Team Providers Name Role Phone Jacky Nur MD Primary Care Provider Encounter Details Date Type Department Care Team Description 09/22/2018 Orders Only Cardiac Surgery Asia Palacio, S/P ascending aortic [facility] [place] [address] CARDIAC SURGERY [place] [address] Social History Tobacco Use Types Packs/Day Years Used Date Smoking Tobacco: Never Smokeless Tobacco: Never Alcohol Use Standard Drinks/Week Comments Yes 2 (1 standard drink = 0.6 oz pure alcoho l) occassional Sex Assigned at Date Recorded Not on file documented as of this encounter Plan of Treatment Not on filedocumented as of this encounter Visit Diagnoses Diagnosis S/P ascending aortic replacement Blood vessel replaced by other means documented in this encounter Care Teams Data Entry Associate Relationship Specialty Start Date End Date Jacky Nur MD PCP - General 06/26/10 02/20/[address] [place] [address] documented as of this encounter
--- OUTSIDE RECORDS SUMMARY | 2022-07-05 02:49 | XMS_ITS | Encounter Summary ---
:1950 [place] [address] Care Team Providers Name Role Phone Jacky Nur MD Primary Care Provider Encounter Details Date Type Department Care Team Description 04/21/[address] Scan at [facility] S/P AVR [facility] [place] [address] Social History Tobacco Use Types Packs/Day Years Used Date Smoking Tobacco: Never Smokeless Tobacco: Never Alcohol Use Standard Drinks/Week Comments Yes 2 (1 standard drink = 0.6 oz pure alcoho l) occassional Sex Assigned at Date Recorded Not on file documented as of this encounter Medications at Time of Discharge Medication Sig Dispensed Refills Start Date End Date meTOPROLOL succinate Take 25 mg by mouth 0 (TOPROL-XL) 25 mg Tablet daily. Sustained Release 24 hr aspirin 81 mg Tablet, Take 81 mg by mouth 30 tablet 3 12/05 Chewable daily. documented as of this encounter Plan of Treatment Not on filedocumented as of this encounter Procedures Procedure Name Priority Date/Time Associated Diagnosis Comme nts CT CHEST WO Routine 04/21/2015 1:13 PM Results for this CONTRAST (GENERIC) EDT procedure are in the results section. documented in this encounter Results CT Chest Wo Contrast (04/21/2015 1:13 PM EDT) Anatomical Region Laterality Modality Chest Computed Tomography Specimen (Source) Anatomical Collection Method Collection Time Re ceived Time Location / / Volume Laterality 04/21/2015 1:13 PM EDT Impressions 04/21/2015 2:32 PM EDT Impression: 1. Status post aVR as discussed above. N o evidence of a dissection or aneurysm. 2. 6 mm right middle lobe pulmonary nodu le. Consider one-year follow-up limited chest CT for ability. This report was reviewed by Eduardo gold at 04/21/2015 2:26 PM Film and interpretation reviewed by the attending Narrative 04/21/2015 2:32 PM EDT EXAMINATION: CT Chest with Contrast CLINICAL HISTORY: S/P TISSUE AVR/ASC AOR TIC REPL ??TN TECHNIQUE: Helical CT of the chest was p erformed after IV administration of 110 mL of Omnipaque 350 contrast. Contrast. Multiplanar reformatted images were reviewed. COMPARISON: None ? FINDINGS: Lungs and airways: There is a 6 mm oval- shaped pulmonary nodule in the right middle lobe series 3 image 43. There is no other evidence of pulmonary parenchymal disease. Pleura and pericardium: Unremarkable. Heart and vasculature: Postop changes ar e noted status post aVR and ascending aorta replacement. There is no significa nt mediastinal fluid. There is no evidence of dissection or aneurysm. Just above the graft, the aorta measures 3.5 cm. Mediastinum and hilar structures: There is no evidence of lymphadenopathy. Osseous structure: Degenerative changes are seen in the spine. There is been a prior sternotomy. No focal osseous lesio ns are identified. ? Procedure Note Eduardo Whitfield MD - 04/21/2015Form atting of this note might be different from the original. EXAMINATION: CT Chest with Contrast CLINICAL HISTORY: S/P TISSUE AVR/ASC AOR TIC REPL TN TECHNIQUE: Helical CT of the chest was p erformed after IV administration of 110 mL of Omnipaque 350 contrast. Contrast. Multiplanar reformatted images were reviewed. COMPARISON: None ? FINDINGS: Lungs and airways: There is a 6 mm oval- shaped pulmonary nodule in the right middle lobe series 3 image 43. There is no other evidence of pulmonary parenchymal disease. Pleura and pericardium: Unremarkable. Heart and vasculature: Postop changes ar e noted status post aVR and ascending aorta replacement. There is no significa nt mediastinal fluid. There is no evidence of dissection or aneurysm. Just above the graft, the aorta measures 3.5 cm. Mediastinum and hilar structures: There is no evidence of lymphadenopathy. Osseous structure: Degenerative changes are seen in the spine. There is been a prior sternotomy. No focal osseous lesio ns are identified. ? IMPRESSION Impression: 1. Status post aVR as discussed above. N o evidence of a dissection or aneurysm. 2. 6 mm right middle lobe pulmonary nodu le. Consider one-year follow-up limited chest CT for ability. This report was reviewed by Eduardo gold at 04/21/2015 2:26 PM Film and interpretation reviewed by the attending Richi Rob MD IMG CT ORDERABLES documented in this encounter Visit Diagnoses Diagnosis S/P AVR Heart valve replaced by other means documented in this encounter Care Teams Animal Hospital Clerk Relationship Specialty Start Date End Date Jacky Nur MD PCP - General 06/26/10 02/20/[address] [place] [address] [place] [address] documented as of this encounter
--- OUTSIDE RECORDS SUMMARY | 2022-07-05 02:49 | XMS_ITS | Encounter Summary ---
:1950 Author Organization [facility] [place] [address] Care Team Providers Name Role Phone Jacky Nur MD Primary Care Provider Encounter Details Date Type Department Care Team Description 01/23/2015 Orders Only Cardiac Surgery at [facility] Tay Alonzo MD [facility] [place] [address] CARDIOTHORACIC SURGERY [phone] [place], [place] [address] (Wo rk) Social History Tobacco Use Types Packs/Day Years Used Date Smoking Tobacco: Never Smokeless Tobacco: Never Alcohol Use Standard Drinks/Week Comments Yes 2 (1 standard drink = 0.6 oz pure alcoho l) occassional Sex Assigned at Date Recorded Not on file documented as of this encounter Plan of Treatment Not on filedocumented as of this encounter Visit Diagnoses Not on filedocumented in this encounter Care Teams Skip Tender Relationship Specialty Start Date End Date Jacky Nur MD PCP - General 06/26/10 02/20/[address] [place] [address] documented as of this encounter
--- OUTSIDE RECORDS SUMMARY | 2022-07-05 02:49 | XMS_ITS | Encounter Summary ---
:1950 [place] [address] Care Team Providers Name Role Phone Jacky Nur MD Primary Care Provider Encounter Details Date Type Department Care Team Description 12/08/2014 Telephone Cardiac Surgery Jacky Helms III, [place] [address] CARDIOTHORACIC SURGERY [phone] [place] [address] (Wo rk) Social History Tobacco Use Types Packs/Day Years Used Date Smoking Tobacco: Never Smokeless Tobacco: Never Alcohol Use Standard Drinks/Week Comments Yes 2 (1 standard drink = 0.6 oz pure alcoho l) occassional Sex Assigned at Date Recorded Not on file documented as of this encounter Miscellaneous Notes Telephone Encounter - Jacky Helms III, PA - 12/08/2014 5:06 PM EDT Cardiac Surgery Routine Discharge Follow-up Call Note ID: [id number] Primary Diagnoses: 1. Aortic stenosis S/P tissue AVR 12/01/14 2. Ascending aortic dilation S/P ascending aortic replacement 12/01/14 Po Matthews was called today at 1706. He indicates that his discharge occurred without issue. He has all necessary medications and instructions. He indicates that he is doing well overall. No issues identified. All new questions were answered. He will call our office with any problems. Signed: Jacky Helms III, MS, PAMauriC [facility] Section of Cardiothoracic Surgery Date: 12/08/2014 documented in this encounter Plan of Treatment Not on filedocumented as of this encounter Visit Diagnoses Not on filedocumented in this encounter Care Teams Branch Employment Coordinator Relationship Specialty Start Date End Date Jacky Nur MD PCP - General 06/26/10 02/20/[address] [place] [address] [place] [address] documented as of this encounter
--- OUTSIDE RECORDS SUMMARY | 2022-07-05 02:49 | XMS_ITS | Encounter Summary ---
:1950 [place] [address] Care Team Providers Name Role Phone Janet Sweetie DIAL Primary Care Provider Reason for Referral Diagnostic Test (Routine) - Closed Specialty Diagnoses / Procedures Referred By Contact Refer red To Contact Radiology Diagnoses S/P Susie Monet, Mhmh Rad Ct Scan Procedures CT Angiogram Chest (Non-Coronary) w Contrast CT Angiogram Chest (Non-Coronary) wwo Contrast PA [facility] [place] [address] [place] [address] Referral ID Status Reason Start Date Expiration Date Visits V isits Requested Authorized [id number] Closed Specialty 03/04/2022 09/04/2023 1 1 Service Requested Encounter Details Date Type Department Care Team Description 03/04/2022 Orders Only Cardiac Surgery Tay Aolnzo MD S/P [facility] [place] [address] CARDIOTHORACIC SURGERY [phone] [place], [place] [address] (Wo rk) Social History Tobacco Use Types Packs/Day Years Used Date Smoking Tobacco: Never Smokeless Tobacco: Never Alcohol Use Standard Drinks/Week Comments Yes 2 (1 standard drink = 0.6 oz pure alcoho l) occassional Sex Assigned at Date Recorded Not on file documented as of this encounter Plan of Treatment Scheduled Orders Name Type Priority Associated Diagnoses Order S chedule Creatinine Lab Routine S/P AVR Expected: 03/04, Expires: 03/04/2023 documented as of this encounter Results CT Angiogram Chest (Non-Coronary) w Contrast (04/22/2022 [...] who have questions please contact the health clinical manager home care that requested your imaging first. ? Electronically signed by: Gaby Putnam MD, [facility] ([phone]), at 04/22/2022 4:58 PM Narrative 04/22/2022 4:58 PM EDT EXAMINATION: CT [...] ho have questions please contact the health clinical manager home care that requested your imaging first. Electronically signed by: Gaby Putnam MD, [facility] ([phone]), at 04/22/2022 4:58 PM Tay Alonzo MD IMG CT ORDERABLES documented in this encounter Visit Diagnoses Diagnosis S/P AVR Heart valve replaced by other means S/P AVR Heart valve replaced by other means documented in this encounter Care Teams Drug Enforcement Agent Relationship Specialty Start Date End Date Sweetie Gonzales APRN PCP - General Family Medicine 02/21/22 04/21/[address] [place] [address] [place] [address] documented as of this encounter
--- OUTSIDE RECORDS SUMMARY | 2022-07-05 02:49 | XMS_ITS | Encounter Summary ---
:1950 Author Organization [facility] [place] [address] Care Team Providers Name Role Phone Jacky Nur MD Primary Care Provider Encounter Details Date Type Department Care Team Description 04/24/2016 Orders Only Cardiac Surgery at D [facility] [place] [address] Social History Tobacco Use Types Packs/Day [...] on filedocumented in this encounter Care Teams Reverser Relationship Specialty Start Date End Date Jacky Nur MD PCP - General 06/26/10 02/20/[address] [place] [address] [place] [address] documented as of this encounter
--- OUTSIDE RECORDS SUMMARY | 2022-07-05 02:49 | XMS_ITS | Encounter Summary ---
:1950 Author Organization [facility] [place] [address] Care Team Providers Name Role Phone Jacky Nur MD Primary Care Provider Encounter Details Date Type Department Care Team Description 05/27/2016 Office Visit Cardiac Surgery at [facility] S/P AVR; HALEY Flores MD S/P ascending aortic replacement [facility] [address] [place] [address] SURGERY [phone] [place], [place] [address] Social History Tobacco Use Types Packs/Day Years Used Date Smoking Tobacco: Never Smokeless Tobacco: Never Alcohol Use Standard Drinks/Week Comments Yes 2 (1 standard drink = 0.6 oz pure alcoho l) occassional Sex Assigned at Date Recorded Not on file documented as of this encounter Last Filed Vital Signs Vital Sign Reading Time Taken Comments Blood Pressure 129/74 05/27/2016 11:00 AM EDT adverage of 3 Pulse 72 05/27/2016 11:00 AM EDT Temperature - - Respiratory Rate - - Oxygen Saturation 99% 05/27/2016 11:00 AM EDT on graeme m air Inhaled Oxygen Concentration - - Weight 95.7 kg (211 lb) 05/27/2016 11:00 AM EDT Height 170.2 cm (5' 7) 05/27/2016 11:00 AM EDT Body Mass Index 33.05 05/27/2016 11:00 AM EDT documented in this encounter Progress Notes Tay Alonzo MD - 05/27/2016 11:20 AM EDT I am seeing Mr. Matthews in followup after AVR/ Ascending aortic replacement in DECEMBER 2014. He has been doing well. HE is back to full activity without limitations. He denies chest pain or shortness of breath. CT scan shows no complication related to his aortic repair. Outpatient Prescriptions Marked as Taking for the 05/27/16 encounter (Office Visit) with Tay Alonzo MD Medication Sig Dispense Refill ??? meTOPROLOL succinate (TOPROL-XL) 25 mg Tablet Sustained Release 24 hr Take 25 mg by mouth daily. ??? aspirin 81 mg Tablet, Chewable Take 81 mg by mouth daily. 30 tablet 3 Physical Exam: BP 129/74 Comment: adverage of 3 Pulse 72 Ht 170.2 cm (5' 7) Wt 95.7 kg (211 lb) SpO2 99% Comment: on room air BMI 33.05 kg/m2 Lung: CTA CV: RRR, 1-2/6 OLLIE No edema A/P: Doing well without evidence of complications. I would like to see him in one year with repeat CT scan of the chest. He will contact me with any problems. documented in this encounter Plan of Treatment Not on filedocumented as of this encounter Visit Diagnoses Diagnosis S/P AVR Heart valve replaced by other means S/P ascending aortic replacement Blood vessel replaced by other means documented in this encounter Care Teams Cook Room Supervisor Relationship Specialty Start Date End Date Jacky Nur MD PCP - General 06/26/10 02/20/[address] [place] [address] [place] [address] documented as of this encounter
--- OUTSIDE RECORDS SUMMARY | 2022-07-05 02:49 | XMS_ITS | Encounter Summary ---
:1950 Author Organization [facility] [place] [address] Care Team Providers Name Role Phone Jacky Nur MD Primary Care Provider Reason for Referral Diagnostic Test (Routine) - Specialty Diagnoses / Procedures Referred By Contact Refer red To Contact Radiology Diagnoses S/P Abhay Paulson, [facility] Rad Ct Scan Procedures CT Angiogram Of Chest (Non-Coronary) wwo Contrast [facility] [place] [address] [place] [address] Referral ID Status Reason Start Date Expiration Visits Visits Date Requested Authorized [id number] Specialty 05/21/2016 08/19/2016 6 6 Service Requested Reason for Visit Diagnostic Test (Routine) - Specialty Diagnoses / Procedures Referred By Contact Refer red To Contact Radiology Diagnoses S/P Abhay Paulson, [facility] Rad Ct Scan Procedures CT Angiogram Of Chest (Non-Coronary) wwo Contrast [facility] [place] [address] [place] [address] Referral ID Status Reason Start Date Expiration Visits Visits Date Requested Authorized [id number] Specialty 05/21/2016 08/19/2016 6 6 Service Requested Encounter Details Date Type Department Care Team Description 05/27/[address] Scan at [facility] Tay Alonzo, S/P AVR [facility] [place] [address] CARDIOTHORACIC SURGERY [place], [place] [address] (Wo rk) Social History Tobacco [...] Procedure Name Priority Date/Time Associated Comments Diagnosis CT ANGIOGRAM OF Routine 05/27/2016 10:17 AM S/P AVR Resul ts for this CHEST (NON-CORONARY) EDT procedu re are in WWO CONTRAST the results section. POCT CREATININE Routine 05/27/2016 9:50 AM Result s for this EDT procedure are i n the results section. CREATININE Routine 05/27/2016 9:40 AM S/P AVR Results f or this EDT procedure are i n the results section. documented in this encounter Results CT Angiogram Of Chest (Non-Coronary) wwo Contrast (05/27/2016 10:17 AM EDT) Anatomical Region Laterality Modality Chest Computed Tomography Specimen (Source) Anatomical Location Collection Method / Collectio n Time Received Time / Laterality Volume Impressions 05/27/2016 11:12 AM EDT No interval change in appearance of replaced aortic valve and ascending aorta. Narrative 05/27/2016 11:12 AM EDT EXAMINATION: CT ANGIOGRAM OF CHEST (NON-CORONARY) WWO CONTRAST CLINICAL HISTORY: S/P AVR, Asc. aortic r eplacement TECHNIQUE: 2.5 mm thick axial contiguous sections were obtained through the chest via helical acquisition after the intravenous administration of 95 cc of Omnipaque-350. Three-dimensional reconst ructions as well as coronal and sagittal reformatted MIP images were generated. COMPARISON: None FINDINGS: Thoracic aorta: There is no interval stephen nge. Again noted are the postoperative findings of aortic valve and a sending a ortic replacement. No surrounding abnormal fluid collection or dissection is seen. Just above the graft and at the level of the azygos vein, the ascending aorta measures 34 mm in diameter (series 5 image 37) compared to 35 mm previously . Other Cardiovascular: No significant fin dings. Pulmonary parenchyma, airways, and pleur a: No change in size or overall appearance of sub-5 mm nodule in RIGHT m iddle lobe (series 9 image 297). Lungs otherwise clear. Other mediastinal structures: No signifi cant findings. Upper abdomen: No significant findings. Skeletal structures: No significant find ings. Procedure Note Rik Gomez MD - 05/27/2016Formatt ing of this note might be different from the original. EXAMINATION: CT ANGIOGRAM OF CHEST (NON- CORONARY) WWO CONTRAST CLINICAL HISTORY: S/P AVR, Asc. aortic r eplacement TECHNIQUE: 2.5 mm thick axial contiguous sections were obtained through the chest via helical acquisition after the intravenous administration of 95 cc of Omnipaque-350. Three-dimensional reconst ructions as well as coronal and sagittal reformatted MIP images were generated. COMPARISON: None FINDINGS: Thoracic aorta: There is no interval stephen nge. Again noted are the postoperative findings of aortic valve and a sending a ortic replacement. No surrounding abnormal fluid collection or dissection is seen. Just above the graft and at the level of the azygos vein, the ascending aorta measures 34 mm in diameter (series 5 image 37) compared to 35 mm previously . Other Cardiovascular: No significant fin dings. Pulmonary parenchyma, airways, and pleur a: No change in size or overall appearance of sub-5 mm nodule in RIGHT m iddle lobe (series 9 image 297). Lungs otherwise clear. Other mediastinal structures: No signifi cant findings. Upper abdomen: No significant findings. Skeletal structures: No significant find ings. IMPRESSION No interval change in appearance of repl aced aortic valve and ascending aorta. Tay Alonzo MD IMG CT ORDERABLES POCT Creatinine (05/27/2016 9:50 AM EDT) P athologist Signature POC Creatinine 1.2 0.8 - 1.5 mg/dL POC Estimated >60 60 GFR Specimen (Source) Anatomical Collection Method Collection Time Re ceived Time Location / / Volume Laterality 05/27/2016 9:50 AM EDT Tay Alonzo MD POINT OF CARE TEST ORDERABLE S (ABNORMAL) Creatinine (05/27/2016 9:40 AM EDT) athologist Signature Creatinine 1.25 0.80 - 1.50 [facility] mg/dL [facility] Comment: Please note that the pediatric reference intervals supplied above were not validated at [facility]. Results from pediatri c patients should be interpreted in conjunction to the patient's age, height and muscle mass. Estimated GFR 58 (L) >=60 [facility] Comment: This estimated GFR (eGFR) value was calc ulated using the MDRD equation which has been validated on patients between t he ages of 18 and 70. The MDRD should not be used to assess kidney function in patients < 18 years of age or in patients with extremes of body mass, or in patients with acute kidney failure. This value should be multiplied by 1.2 f or patients. For further information please copy and past e the following links into your internet browser. http://Proximex/DHnkdep http://Proximex/DHnkf Specimen Anatomical Collection Method Collection Time Receive d Time (Source) Location / / Volume Laterality Blood specimen 05/27/2016 9:40 AM 016 9:52 (specimen) EDT AM EDT Resulting Agency Comment Spec In Lab Tay Alonzo MD CHEMISTRY ORDERABLES Performing Organization Address City/State/ZIP [place] [address] documented in this encounter Visit Diagnoses Diagnosis S/P AVR Heart valve replaced by other means documented in this encounter Administered Medications Inactive Administered Medications - up to 3 most recent administrations Medication Order MAR Action Action Date Dose Rate Site iohexol (OMNIPAQUE) 350 mg/mL Given 05/27/2016 10:16 AM EDT 26,2 50 mg solution 26,250 mg 26,250 mg (75 mL), Intravenous, ONCE PRN, 1 dose, Starting on Fri05/27/16 at 1016, Until Fri05/27/16 at 1016, Per Protocol, Warning Vesicant/Irritant Medication , Routine documented in this encounter Care Teams Back Roller Relationship Specialty Start Date End Date Jacky Nur MD PCP - General 06/26/10 02/20/[address] [place] [address] [place] [address] documented as of this encounter
--- OUTSIDE RECORDS SUMMARY | 2022-07-05 02:49 | XMS_ITS | Encounter Summary ---
:1950 Author Organization [facility] Address [address] [place] [address] Care Team Providers Name Role Phone Jacky Nur MD Primary Care Provider Encounter Details Date Type Department Care Team Description 01/16/2015 [place] [facility] [place] post ascending [address] aortic replacement [place] [phone] Social History Tobacco Use Types Packs/Day Years Used Date Smoking Tobacco: Never Smokeless Tobacco: Never Alcohol Use Standard Drinks/Week Comments Yes 2 (1 standard drink = 0.6 oz pure alcoho l) occassional Sex Assigned at Date Recorded Not on file documented as of this encounter Medications at Time of Discharge Medication Sig Dispensed Refills Start Date End Date aspirin 81 mg Tablet, Take 81 mg by mouth 30 tablet 3 12/05 Chewable daily. acetaminophen (TYLENOL) Take 2 tablets by 30 tablet 1 12/0504/21/2015 500 mg Tablet mouth every 6 hours as needed for Pain. documented as of this encounter Plan of Treatment Not on filedocumented as of this encounter Procedures Procedure Name Priority Date/Time Associated Diagnosis Comme nts XR CHEST PA AND Routine 01/16/2015 11:58 AM Status post Resul ts for this LATERAL EDT ascending aortic procedure a re in replacement the results section. documented in this encounter Results XR chest routine PA & lateral (01/16/2015 11:58 AM EDT) Anatomical Region Laterality Modality Chest N/A Radiographic Imaging Specimen (Source) Anatomical Collection Method Collection Time Re ceived Time Location / / Volume Laterality 01/16/2015 11:58 AM EDT Impressions 01/16/2015 12:07 PM EDT IMPRESSION: Improved inflation and resolution of sma ll pleural effusions. Narrative 01/16/2015 12:07 PM EDT EXAMINATION: CHEST ROUTINE 2 VIEWS CLINICAL HISTORY: s/p AVR, aortic replac ement TECHNIQUE: Standing PA and lateral chest COMPARISON: 12/04/2014 FINDINGS: There is a better degree of inflation of the lungs and the previously seen bibasilar atelectasis and pleural effusi ons have cleared. The heart size has returned to normal. There is no other in terval change. Again noted are sternotomy wires and replaced aortic jarrett ve. Procedure Note Rik Gomez MD - 01/16/2015Formatt ing of this note might be different from the original. EXAMINATION: CHEST ROUTINE 2 VIEWS CLINICAL HISTORY: s/p AVR, aortic replac ement TECHNIQUE: Standing PA and lateral chest COMPARISON: 12/04/2014 FINDINGS: There is a better degree of inflation of the lungs and the previously seen bibasilar atelectasis and pleural effusi ons have cleared. The heart size has returned to normal. There is no other in terval change. Again noted are sternotomy wires and replaced aortic jarrett ve. IMPRESSION IMPRESSION: Improved inflation and resolution of sma ll pleural effusions. Tay Alonzo MD IMG DX ORDERABLES documented in this encounter Visit Diagnoses Diagnosis Status post ascending aortic replacement Blood vessel replaced by other means documented in this encounter Care Teams Consumer Safety Officer Relationship Specialty Start Date End Date Jacky Nur MD PCP - General 06/26/10 02/20/[address] [place] [address] [place] [address] documented as of this encounter
--- OUTSIDE RECORDS SUMMARY | 2022-07-05 02:49 | XMS_ITS | Encounter Summary ---
:1950 Author Organization [facility] Address [address] [place] [address] Care Team Providers Name Role Phone Jacky Nur MD Primary Care Provider Encounter Details Date Type Department Care Team Description 01/16/2015 Office Visit Cardiac Surgery at [facility] Aort ic valve disease; HALEY Flores MD S/P AVR; Count includes the [facility] S/P ascending aortic replacement [address] [place], [place] [phone] SURGERY [phone] [place] [id number] Social History Tobacco Use Types Packs/Day Years Used Date Smoking Tobacco: Never Smokeless Tobacco: Never Alcohol Use Standard Drinks/Week Comments Yes 2 (1 standard drink = 0.6 oz pure alcoho l) occassional Sex Assigned at Date Recorded Not on file documented as of this encounter Last Filed Vital Signs Vital Sign Reading Time Taken Comments Blood Pressure 138/80 01/16/2015 2:57 PM EDT Pulse 60 01/16/2015 2:57 PM EDT Temperature - - Respiratory Rate - - Oxygen Saturation 99% 01/16/2015 2:57 PM EDT Inhaled Oxygen Concentration - - Weight 88.4 kg (194 lb 12.8 oz) 01/16/2015 2:57 PM EDT Height 170.2 cm (5' 7.01) 01/16/2015 2:57 PM EDT Body Mass Index 30.5 01/16/2015 2:57 PM EDT documented in this encounter Progress Notes Tay Alonzo MD - 01/16/2015 3:31 PM EDT I am seeing Mr. Matthews in followup after AVR/Ascending aortic replacement. He has done very well. He has no real complaints. He feels great. He denies chest pain or shortness of breath. His palpitations have decreased. He is anxious to be more active. CXR shows clear lung zaman without effusion or infiltrate EKG shows NSR with incomplete RBBB ECHO shows LVEF 65%, no AI, mean gradient of 6 mmHg Outpatient Prescriptions Marked as Taking for the 01/16/15 encounter (Office Visit) with Tay Alonzo MD Medication Sig Dispense Refill ??? meTOPROLOL succinate (TOPROL-XL) 25 mg Tablet Sustained Release 24 hr Take 25 mg by mouth daily. ??? acetaminophen (TYLENOL) 500 mg Tablet Take 2 tablets by mouth every 6 hours as needed for Pain. 30 tablet 1 ??? aspirin 81 mg Tablet, Chewable Take 81 mg by mouth daily. 30 tablet 3 Physical Exam: BP 138/80 Pulse 60 Ht 170.2 cm (5' 7.01) Wt 88.361 kg (194 lb 12.8 oz) BMI 30.50 kg/m2 SpO2 99% Sternal incision is well healed STernum is stable CV: RRR, 1/6 systolic murmur Lung: CTA No edema A/P: Doing very well. He may resume driving. He may increase his activity level ad mark. He may return to work around February 20. I would like to see him in three months with CT scan of the chest for followup of his aortic replacement. documented in this encounter Plan of Treatment Not on filedocumented as of this encounter Procedures Procedure Name Priority Date/Time Associated Diagnosis Comme nts EKG 12-LEAD Routine 01/16/2015 3:13 PM Aortic valve disease R esults for this EDT procedure are i n the results section . documented in this encounter Results EKG 12 Lead (01/16/2015 3:13 PM EDT) Component Value Ref Range Test Analysis Performed Pathologis t Method Time At Signature Ventricular rate 61 BPM MUSE SYSTEM Atrial Rate 61 BPM MUSE SYSTEM P-R Interval 154 ms MUSE SYSTEM QRS Duration 106 ms MUSE SYSTEM Q-T Interval 448 ms MUSE SYSTEM QTC Calculated 450 ms MUSE SYSTEM (Bezet) Calculated P Hamilton 21 degrees MUSE SYSTEM Calculated R Hamilton 37 degrees MUSE SYSTEM Calculated T Hamilton 74 degrees MUSE SYSTEM INTERPRETATION Normal sinus rhythm MUSE SYSTEM Incomplete right bundle branch block Borderline ECG When compared with ECG of 01-DEC-2014 13:10, No significant change was found Confirmed by Dany RODRIGUEZ MD, Eran ([id number]) on 01/17/2015 7:45: 28 AM Specimen Anatomical Collection Method Collection Time Receive d Time (Source) Location / / Volume Laterality 01/16/2015 3:13 PM 5 7:45 EDT AM EDT Tay Alonzo MD ECG ORDERABLES Performing Organization Address City/State/ZIP Code Phon e Number MUSE SYSTEM documented in this encounter Visit Diagnoses Diagnosis Aortic valve disease Aortic valve disorders S/P AVR Heart valve replaced by other means S/P ascending aortic replacement Blood vessel replaced by other means documented in this encounter Care Teams Devulcanizer Charger Relationship Specialty Start Date End Date Jacky Nur MD PCP - General 06/26/10 02/20/[address] [place] [address] [place] [address] documented as of this encounter
--- OUTSIDE RECORDS SUMMARY | 2022-07-05 02:49 | XMS_ITS | Encounter Summary ---
:1950 Author Organization [place] [address] Care Team Providers Name Role Phone Yosi Graham Primary Care Provider Reason for Referral Diagnostic Test (Routine) - Closed Specialty Diagnoses / Procedures Referred By Contact Refer red To Contact Cardiology Diagnoses Aortic valve stenosis, etiology of cardiac valve disease unspecified Hypertension, essential, benign Ascending aorta dilatation Lai Gonzales MD [facility] Non-Inv Card Lab Procedures Echocardiogram Transthoracic [address] [phone] Fax: Referral ID Status Reason Start Date Expiration Date Visits V isits Requested Authorized [id number] Closed Specialty 02/21/2022 02/21/2023 1 1 Service Requested Reason for Visit Diagnostic Test (Routine) - Closed Specialty Diagnoses / Procedures Referred By Contact Refer red To Contact Cardiology Diagnoses Aortic valve stenosis, etiology of cardiac valve disease unspecified Hypertension, essential, benign Ascending aorta dilatation Lai Gonzales MD [facility] Non-Inv Card Lab Procedures Echocardiogram Transthoracic [address] [phone] Fax: Referral ID Status Reason Start Date Expiration Date Visits V isits Requested Authorized [id number] Closed Specialty 02/21/2022 02/21/2023 1 1 Service Requested Encounter Details Date Type Department Care Team Description 05/08/2022 Hospital Encounter Non-Invasive Lai Gonzales MD Aortic valve stenosis, etiology of cardi ac valve disease unspecified; Cardiology Lab [facility] Hyperten blayne, essential, benign; [facility] DR Ascending aorta dilatation [facility] CARDIOLOGY [place], [place] [address] [address] [place], [place] [phone] (Work) [phone] Social History Tobacco Use Types Packs/Day Years [...] Take 40 mg by mouth 0 mg Tablet daily. lisinopriL (Zestril) 30 mg Take 30 mg by mouth 0 Tablet daily. Take in the morning. amLODIPine (Norvasc) 2.5 Take 1 tablet by 90 tablet 3 02/21 mg Tablet mouth daily. meTOPROLOL succinate Take 25 mg by mouth [...] Hypertension, essential, benig n Ascending aorta dilatation documented in this encounter Results ECHOCARDIOGRAM COMPLETE (05/08/2022 3:33 PM EDT) Anatomical Region Laterality Modality Cardiac Other Specimen (Source) Anatomical Collection Method Collection Time Re ceived Time Location / / Volume Laterality 05/08/2022 11:58 AM EDT Narrative 05/08/2022 3:56 PM EDT ? Echocardiogram Report Name: OMAR MATTHEWS ?Study Date: 05/08/2022 11:58 AMBP: 134/76 mmHg ? Patient Location: [address] [place] [address] : 1950 ? Height: 168 cm ? Account: [id number] Age: 71 yrs ? Weight: 95 kg Gender: Male ?BSA: 2.0 m2 Ordering Physician: LAI GONZALES Referring Physician: LAI GONZALES Reason For Study: Aortic valve stenosis, Hypertension, Ascending aorta dilation Exam Location: [facility]. Interpretation Summary Left ventricle is of [...] significant change in gradients or DVI. Procedure Complete-[id number]. Satisfactory quality. Th ere is normal sinus [...] 022 11:58 AMBP: 134/76 mmHg Patient Location: [address] [place] [address] : 1950 Height: 168 cm Account: [id number] Age: 71 yrs Weight: 95 kg Gender: Male BSA: 2.0 m2 Ordering Physician: LAI GONZALES Referring Physician: LAI GONZALES Reason For Study: Aortic valve stenosis, Hypertension, Ascending aorta dilation Exam Location: [facility]. Interpretation Summary Left ventricle is of [...] significant change in gradients or DVI. Procedure Complete-[id number]. Satisfactory quality. 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
--- OUTSIDE RECORDS SUMMARY | 2022-07-05 02:49 | XMS_ITS | Encounter Summary ---
:1950 Author Organization [facility] [place] [address] Care Team Providers Name Role Phone Yosi Graham Primary Care Provider Encounter Details Date Type Department Care Team Description 05/09/2022 Telephone Cardiology at [facility] Rigo Vazquez, [place] [phone] Social History Tobacco Use Types Packs/Day Years Used Date Smoking Tobacco: Never Smokeless Tobacco: Never Alcohol Use Standard Drinks/Week Comments Yes 2 (1 standard drink = 0.6 oz pure alcoho l) occassional Sex Assigned at Date Recorded Not on file documented as of this encounter Miscellaneous Notes Telephone Encounter - Rigo Vazquez, RN - 05/09/2022 8:[address] Joshi's expert review and his result note. Call placed to Mr. Matthews. Very pleasant connection. Relayed findings (verbatim). Patient pleased with results, appreciative of today's follow up call. No questions to return to Dr. Joshi today. Phill Vazquez RNunderwriting clerks supervisor Team Nurse [facility] Amb[place] Cardiology (Targeted excerpts for context): TEN 02/21/2022. 1. Bicuspid aortic valve, prior aortic stenosis, status post AVR / Ascending aortic replacement in December 2014 with 25 mm trifecta bovine pericardial bioprosthetic valve and 28 mm Vascutek graft. He did have a heart cath on November 07, 2014 which showed mild pulmonary hypertension dilated root and no major coronary artery disease. We will perform an echocardiogram to reevaluate his gradients across the bioprosthetic valve. Anticipating recommended follow up in mid to late August,. Telephone Encounter - Rigo Vazquez RN - 05/09/2022 8:36 AM EDT ----- Message from Lai Joshi MD sent at 05/09/2022 6:42 AM EDT ----- Ray Pollock I reviewed the echo. The valve gradients are unchanged. No changes needed t medical Rx. Please see full report below: Interpretation Summary Left ventricle is of normal size. Mildly increased thickness of the basal septum with no obstruction to LV outflow. Left ventricular systolic function is normal. The left ventricular ejection fraction is 66% by Galvan's biplane. There are no segmental wall motion abnormalities. Right ventricle is moderately dilated. Right ventricular systolic function is normal. A 25 mm Trifecta (bovine stented) valve is present (inserted 12/01/2014). The valve leaflets are not well visualized. The peak gradient across the prosthesis is 17 mmHg; mean gradient is 8 mmHg. DVI is 0.53. Compared to the prior TTE from 03/2018, there has not been a significant change in gradients or DVI. documented in this encounter Plan of Treatment Not on filedocumented as of this encounter Visit Diagnoses Not on filedocumented in this encounter Care Teams Colorist Dyer Relationship Specialty Start Date End Date Yosi Graham PA PCP - General Internal Medicine 04/22/22 [address] [place] [address] documented as of this encounter
--- OUTSIDE RECORDS SUMMARY | 2022-07-05 02:49 | XMS_ITS | Encounter Summary ---
:1950 Author Organization [facility] Address [address] [place] [address] Care Team Providers Name Role Phone Yosi Graham Primary Care Provider Encounter Details Date Type Department Care Team Description 04/22/2022 Office Visit Cardiac Surgery at [facility] S/P AVR; HALEY Flores MD S/P ascending aortic aneurysm repair; [facility] [address] [place]ARDI[facility]ORACIC [phone] SURGERY [phone] [place], [place] [address] Social History Tobacco Use Types [...] Pulse 64 04/22/2022 2:08 PM EDT Temperature - - Respiratory Rate - - Oxygen Saturation 100% 04/22/2022 2:08 PM EDT Inhaled Oxygen Concentration - - Weight 97.4 kg (214 lb 12.8 oz) 04/22/2022 2:08 PM EDT Height 167.6 cm (5' 6) 04/22/2022 2:08 PM EDT Body Mass Index 34.67 04/22/2022 2:08 PM EDT documented in this encounter Progress Notes Tay Alonzo MD - 04/22/2022 2:10 PM EDT I am seeing Mr. Matthews in followup. He is s/p AVR/Ascending aortic replacement in 2014. HE has been noting a bit more shortness of breath when he does something new. He has not had a repeat ECHO since 2018, but is scheduled for one in May. CT scan today shows no complication relate to his aortic replacement. There is no valve calcification. He has minimal coronary calfication. Outpatient Medications Marked as Taking for the 04/22/22 encounter (Office Visit) with Tay Alonzo MD Medication Sig Dispense Refill ??? pravastatin (PRAVACHOL) 40 mg Tablet Take 40 mg by mouth daily. ??? lisinopriL (Zestril) 30 mg Tablet Take 30 mg by mouth daily. Take in the morning. ??? amLODIPine (Norvasc) 2.5 mg Tablet Take 1 tablet by mouth daily. 90 tablet 3 ??? meTOPROLOL succinate (TOPROL-XL) 25 mg Tablet Sustained Release 24 hr Take 25 mg by mouth daily. ??? aspirin 81 mg Tablet, Chewable Take 81 mg by mouth daily. 30 tablet 3 Physical Exam: BP 142/85 (BP Location (NBP): Left arm, Patient Position: Sitting) Pulse 64 Ht 167.6 cm (5' 6) Wt 97.4 kg (214 lb 12.8 oz) SpO2 100% BMI 34.67 kg/m?? CV: RRR, no murmur Lung: CTA A/P: No complication related to his aortic repair, which looks great. I would await the ECHO, but I don't hear any murmur, so I doubt he has a valve problem. I suspect he has poorly controlled HTN. His BP can occasionally get quite high when he is nervous orworked up. If the ECHO is ok, then I would recommend increasing his BP medication. Since he is now 7 years out form surgery without a graft complication, I don't think he needs to undergo further routine CT scan evaluation. He can return to see me on a PRN basis. documented in this encounter Plan of Treatment Not on filedocumented as of this encounter Visit Diagnoses Diagnosis S/P AVR Heart valve replaced by other means S/P ascending aortic aneurysm repair Other postprocedural status Essential hypertension Unspecified essential hypertension documented in this encounter Care Teams Teachers' Assistant Relationship Specialty Start Date End Date Yosi Graham PA PCP - General Internal Medicine 04/22/22 [address] [place] [address] documented as of this encounter
--- OUTSIDE RECORDS SUMMARY | 2022-07-05 02:49 | XMS_ITS | Encounter Summary ---
:1950 Author Organization [facility] [place] [address] Care Team Providers Name Role Phone Jacky Nur MD Primary Care Provider Reason for Referral Diagnostic Test (Routine) - Specialty Diagnoses / Procedures Referred By Contact Refer red To Contact Radiology Diagnoses S/P Abhay Paulson, [facility] Rad Ct Scan Procedures CT Angiogram Of Chest (Non-Coronary) wwo Contrast PA [facility] [place] [address] [place]ORAC[place] [address] Referral ID Status Reason Start Date Expiration Visits Visits Date Requested Authorized [id number] Specialty 05/21/2016 08/19/2016 6 6 Service Requested Encounter Details Date Type Department Care Team Description 04/25/2016 Orders Only Cardiac Surgery at [facility] [place] Abhay Acharya, S/P AVR [facility] [place] [address] [facility] [phone] CARDI[address]ACIC [place], [place] [address] (Wo rk) Social History Tobacco Use Types Packs/Day Years Used Date Smoking Tobacco: Never Smokeless Tobacco: Never Alcohol Use Standard Drinks/Week Comments Yes 2 (1 standard drink = 0.6 oz pure alcoho l) occassional Sex Assigned at Date Recorded Not on file documented as of this encounter Plan of Treatment Not on filedocumented as of this encounter Results CT Angiogram Of Chest [...] aorta. Tay Alonzo MD IMG CT ORDERABLES (ABNORMAL) Creatinine (05/27/2016 9:40 AM EDT) athologist Signature Creatinine 1.25 0.80 - 1.50 [facility] mg/dL [facility] Comment: Please note that the pediatric reference intervals supplied above were not validated at [facility]. Results from pediatri c patients should be interpreted in conjunction to the patient's age, height and muscle mass. Estimated GFR 58 (L) >=60 [facility] Comment: This estimated GFR (eGFR) value [...] the following links into your internet browser. [email or web address]ULS[facility]kf Specimen Anatomical Collection Method Collection Time Receive d Time (Source) Location / / Volume Laterality Blood specimen 05/27/2016 9:40 AM 016 9:52 (specimen) EDT AM EDT Resulting Agency Comment Spec In Lab Tay Alonzo MD CHEMISTRY ORDERABLES Performing Organization Address City/State/ZIP [place] [address] documented in this encounter Visit Diagnoses Diagnosis S/P AVR Heart valve replaced by other means S/P AVR Heart valve replaced by other means documented in this encounter Care Teams Brake Liner Relationship Specialty Start Date End Date Jacky Nur MD PCP - General 06/26/10 02/20/[address] [place] [address] [place] [address] documented as of this encounter
--- OUTSIDE RECORDS SUMMARY | 2022-07-05 02:49 | XMS_ITS | Encounter Summary ---
:1950 Author Organization [facility] [place] [address] Care Team Providers Name Role Phone Jacky Nur MD Primary Care Provider Reason for Referral Consultation (Routine) - Closed Specialty Diagnoses / Procedures Referred By Contact Refer red To Contact Cardiology Diagnoses Aortic valve disease S/P AVR W/ BOVINE VALVE IN 2014 @. DUE FOR ANUAL APT-TRANSFER CARE TO , NOELLE MARY (PRIOR PROVIDER) LEAVING. * SCANNED DOCS Sweetie Gonzales APRN [facility] Cardiology [address] [place] [address] [place] [address] Referral ID Status Reason Start Date Expiration Date Visits V isits Requested Authorized [id number] Closed Consult, 01/17/2022 01/17/2023 1 1 Test & Treat Encounter Details Date Type Department Care Team Description 01/17/2022 Transcribe Orders eDH Incoming Janet Aortic jarrett ve disease Referrals YOJANA Pitt [phone] [place] [phone] Social History Tobacco Use Types Packs/Day Years Used Date Smoking Tobacco: Never Smokeless Tobacco: Never Alcohol Use Standard Drinks/Week Comments Yes 2 (1 standard drink = 0.6 oz pure alcoho l) occassional Sex Assigned at Date Recorded Not on file documented as of this encounter Plan of Treatment Scheduled Referrals Name Type Priority Associated Order Schedule Diagnoses Referral to Outpatient Referral Routine Aortic valve Ordered: Cardiology disease 01/17/2022 documented as of this encounter Visit Diagnoses Diagnosis Aortic valve disease Aortic valve disorders documented in this encounter Care Teams Stem Roller Or Crusher Operator Relationship Specialty Start Date End Date Jacky Nur MD PCP - General 06/26/10 02/20/[address] [place] [address] [place] [address] documented as of this encounter
--- OUTSIDE RECORDS SUMMARY | 2022-07-05 02:49 | XMS_ITS | Encounter Summary ---
:1950 [place] [address] Care Team Providers Name Role Phone Eda Wilson MD Primary Care Provider Reason for Referral (Routine) - Closed Specialty Diagnoses / Procedures Referred By Contact Refer red To Contact Cardiac Rehabilitation Diagnoses Aortic stenosis Ye Galeas MD [facility] [place] [address] Referral ID Status Reason Start Date Expiration Date Visits V isits Requested Authorized [id number] Closed Evaluate and 12/05/2014 06/03/2015 36 36 Treat Encounter Details Date Type Department Care Team Description 12/01/2014 - Hospital Encounter Intermediate Cardiac Discipio, A ortic stenosis; 12/05/2014 Care Unit Monica Flores MD Status post ascending aortic replacement [facility] CARDIOORACIC [facility] [place] [id number] [phone] Social History Tobacco Use Types Packs/Day Years Used Date Smoking Tobacco: Never Smokeless Tobacco: Never Alcohol Use Standard Drinks/Week Comments Yes 2 (1 standard drink = 0.6 oz pure alcoho l) occassional Sex Assigned at Date Recorded Not on file documented as of this encounter Last Filed Vital Signs Vital Sign Reading Time Taken Comments Blood Pressure 120/80 12/05/2014 11:33 AM EDT Pulse 76 12/05/2014 11:33 AM EDT Temperature 37 ??C (98.6 ??F) 12/05/2014 11:33 AM EDT Respiratory Rate 16 12/05/2014 11:33 AM EDT Oxygen Saturation 100% 12/05/2014 11:33 AM EDT Inhaled Oxygen Concentration - - Weight 91.6 kg (201 lb 15.1 oz) 12/05/2014 5:00 AM EDT Height 170.2 cm (5' 7.01) 12/01/2014 6:26 AM EDT Body Mass Index 31.62 12/01/2014 6:26 AM EDT documented in this encounter Discharge Summaries Abhay Acharya PA - 12/05/2014 12:53 PM EDT Inpatient - Discharge Summary Patient Name: Omar Matthews Patient Age: 64 y.o. Birthdate: 1950 Language: Malagasy Race: White Ethnicity: Not nor Admit Date: 12/01/2014 Discharge Date: 12/05/14 Attending Physician: Ye Galeas MD Follow-up Recommendations for Providers: Please continue routine management of cardiovascular risk factors including blood pressure, lipids, glucose, etc. Please note any changes to medications. Please follow-up with your PCP in 2 weeks. Please follow-up with your Animator Dr. Howell within 4 weeks. Please follow-up with Dr. Galeas in 4 weeks. Inpatient Provider Contact Information: [facility] Section of Cardiothoracic Surgery [facility] [address] FAX [phone] Discharge Diagnoses (Hospital Problems) Primary Diagnoses: 1. Aortic stenosis S/P tissue AVR 12/01/14 2. Ascending aortic dilation S/P ascending aortic replacement 12/01/14. Secondary Diagnoses: none Other Diagnoses (Chronic Problems): Active Non-Hospital Problems Diagnosis ??? Ascending aorta dilatation Discharged to: Patient discharged to home Functional and Cognitive Status: Functionally and cognitively intact Discharge Conditions/Prognosis: Stable Past Medical History Diagnosis Date ??? Hypertension, essential, benign 11/07/2014 Past Surgical History Procedure Laterality Date ??? Replace aort valv, prosth valv N/A 12/01/2014 @REPLACE AORTIC VALVE, W\CPB, W\PROSTHETIC VALVE performed by Ye Galeas MD at [facility] MAIN OR ??? Ascend aorta grft w root replacmt N/A 12/01/2014 @ASCEND AORTA GRAFT, W\CPB, W\WO VALVE SUSPEN; W\ AORTIC ROOT REPLCMNT performed by Ye Galeas MD at [facility] MAIN OR Prior To Admission Medications Prescriptions prior to admission Medication Sig Dispense Refill ??? chlorhexidine (HIBICLENS) 4 % Liquid Apply topically daily as needed. Shower from head to toe with Chlorhexidine the night before surgery . 120 mL 0 ??? metoprolol tartrate (LOPRESSOR) 25 mg Tablet Take 25 mg by mouth daily. Takes 1/2 tablet ??? lisinopril-hydrochlorothiazide (PRINZIDE;ZESTORETIC) 10-12.5 mg Tablet Take 1 tablet by mouth daily. Updated Allergies/ADRs: No Known Allergies History of Presentation: Referred by Dr. Howell for aortic stenosis and dilated ascending aorta. Mr. Matthews is a 64 yo male who has been followed for some time with progressive aortic stenosis. Hehas a lifelong history of a murmur. He has recently noted dyspnea on exertion, some chest tightness,palpitations and occasional lightheadedness. Most recent echo shows LVEF 65%, FABIOLA 0.6 cm2, mean gradient 52 mmHg, ascending aorta 4.1 cm. Cardiac cath shows no CAD, nml coronary anatomy, PAP 03/07 withCI 3.1. He was referred to Cardiac Surgery and agreed to proceed with surgery. Major Procedures/Operations: 12/01/14 AVR 25 TRIFECTA PERICARDIAL, ASCENDING AORTIC REPLACEMENT 28 VASKUTEK GRAFT, CULLEN Hospital Course: Omar Matthews was admitted to [facility] on 12/01/2014 via the Same Day Program. He was brought to the operating room where Dr. Ye Galeas performed theabove procedures. He tolerated the procedure and was brought to the Cardiovascular Intensive Care Unit for recovery. He initially required the pharmacologic support of intravenous levophed. He was extubated from the ventilator on the day of surgery. Diuretics were started and he responded appropriately. He was started on beta blockade and this was optimized. Routine postoperative and home medications were started and a diet was advanced. By postoperative day # 1 all drips were weaned to off and he was transferred to the Intermediate Cardiac Care Unit for continued rehabilitation. All tubes, lines, and epicardial pacing wires were removed without incident. He voided normally after his [place] was removed. He was seen by Physical Therapy and Cardiac Rehabilitation. Sternal precaution education was provided. His discharge plan at this time is to discharge home with VNA services. The remainder of the his hospital course was uneventful and by postoperative day #4 he had met all criteria for discharge to home. Pain was controlled on oral medications. He had walked 5 minutes and gone up and down stairs. He was tolerating a regular diet and had a bowel movement. Vital Signs at Discharge: Last set of vitals: BP 120/80 Pulse 76 Temp(Src) 37 ??C (98.6 ??F) (Oral) Resp 16 Ht 170.2 cm (5' 7.01) Wt 91.6 kg (201 lb 15.1 oz) BMI 31.62 kg/m2 SpO2 100% Patient Vitals for the past 168 hrs: Weight 12/05/14 0500 91.6 kg (201 lb 15.1 oz) 12/04/14 0615 92.9 kg (204 lb 12.9 oz) 12/03/14 0641 95.4 kg (210 lb 5.1 oz) 12/02/14 0600 96.7 kg (213 lb 3 oz) 12/01/14 0626 90.719 kg (200 lb) Current weight: 91.6 kg Admit weight: 90.7 kg. Pertinent physical exam findings prior to discharge: Physical exam: General: Up in chair in NAD. Neuro: Awake and alert. No gross FND. Lungs: LS present bilaterally. No W/R. Heart: RR S1/S2. No M/R. No edema. SR 75-0-80's. No events. PW A/V removed without issues. Bandages placed. Patient tolerated this well. No overt complications. Abdomen: Soft, NT, ND, +BS. Ext: Warm, dry, and well perfused. Incisions: Sternotomy C/D/I. Tubes/Lines/Drains: PIV site ok. Important Studies and Lab Data: Lab Results Component Value Date WBC 10.8* 12/04/2014 RBC 4.23* 12/04/2014 HGB 12.3* 12/04/2014 HCT 36.7* 12/04/2014 HCT 40.0 11/07/2014 PLATELET 128* 12/04/2014 Recent Labs 12/01/14 1200 INR 1.6* Lab Results Component Value Date NA 140 12/04/2014 K 3.8 12/05/2014 CL 102 12/04/2014 CO2 27 12/04/2014 BUN 12 12/04/2014 CREATININE 1.03 12/04/2014 Pending Studies and Lab Data: none Immunizations Given this Hospitalization: There is no immunization history on file for this patient. Smoking Status at Discharge: History Smoking status ??? Never Smoker Smokeless tobacco ??? Never Used Discharge Medications: Your Medications New Medications Dose Details acetaminophen 500 mg Tab Commonly known as: TYLENOL Take 2 tablets by mouth every 6 hours as needed for Pain. 1000 mg Quantity: 30 tablet Refills: 1 aspirin 81 mg Chew Take 81 mg by mouth daily. 81 mg Quantity: 30 tablet Refills: 3 esomeprazole 40 mg Cpdr Commonly known as: NexIUM Take 1 capsule by mouth daily. 40 mg Quantity: 30 capsule Refills: 2 furosemide 20 mg Tab Commonly known as: LASIX Take 1 tablet by mouth daily. 20 mg Quantity: 7 tablet Refills: 0 HYDROmorphone 2 mg Tab Commonly known as: DILAUDID Take 1-3 tablets by mouth every 4 hours as needed for Pain. 2-6 mg Quantity: 80 tablet Refills: 0 potassium chloride 20 mEq Tbsr Take 20 mEq by mouth daily. 20 mEq Quantity: 7 tablet Refills: 0 senna-docusate 8.6-50 mg Tab Commonly known as: PERICOLACE Take 2 tablets by mouth daily as needed for Constipation. 2 tablet Quantity: 30 tablet Refills: 0 Continued medications with new dosing Dose Details meTOPROLOL tartrate 25 mg Tab Commonly known as: LOPRESSOR Take 1 tablet by mouth 2 times daily. What changed: - when to take this - additional instructions 25 mg Quantity: 60 tablet Refills: 1 STOPPED Medications chlorhexidine 4 % Liqd Commonly known as: HIBICLENS lisinopril-hydrochlorothiazide -.5 mg Tab Commonly known as: PRINZIDE;ZESTORETIC Instructions Given to Patient at Discharge: General Instructions None Discharge Instructions: Call your doctor if: You have a fever of greater than 101 degrees, shaking chills, if you develop redness or drainage from your incision sites, or if you have questions. Please call your surgeon's office if you have any discharge or drainage from your chest incision. Your surgeon, Dr. Ye Galeas and/or the Cardiac Surgery Physician Senior Hr Business Partner Team may be reached at . Antibiotic prophylaxis: You will need to take antibiotics prior to many invasive tests and treatments, such as dental cleaning, which should be done every 6 months. Your primary care physician or your dentist can prescribe this medication. Please refer to the card with the [place] [employer] Gu idelines for more information. You have been provided with 3 copies of this card. Keep one for your self. Give one to your primary care physician and one to your dentist. Please refer to the [place] [employer] Guidelines for more information. Good dental care is important for your overall health. We recommend waiting ~3 months before returning to your dentist except in cases of emergency. Weight: Weigh yourself daily. Please call the office if you notice increasing weight, increasing fluid retention (edema), and/or SOB. Sternal (breast bone) precautions: No lifting greater than 7-10 pounds; no pushing or pulling with upper extremities; no excessive chest stretching for the first 4 weeks. Further instructions will be given to you at your follow-up appointment. Activity level: Walk three times a day. You should continue to increase your walks by 1-2 minutes each day. It is expected that you will be walking 20-30 minutes twice a day within 3-4 weeks after discharge to home. Rest between activities and after meals. Use common sense, don't exhaust yourself. Biking: You may use a stationary bicycle whenever you are comfortable enough to permit this. Tightenthe resistance slightly. Increase the amount of time on the bicycle as you would do for your walks, a minute or two each day. No biking outside until after your return appointment with Dr. Ye Galeas. You may use a [place] Track or treadmill but avoid any pulling motion with the arms. Home activities: You may do light housework, e.g. dusting, setting the table, washing dishes, preparing a meal. Light carpentry and gardening are allowed. Avoid trying to open tight jars and stuck windows. No vacuuming, mopping, raking, shoveling, digging or hoeing until after your return visit with the surgeon. Sexual activity: You may engage in sexual activity when you feel ready. Use a position that protectsyour sternum (breastbone). Do not have your partner lie on your chest. Stairs: There are no restrictions on stair climbing. Use common sense. Don't exhaust yourself. Activities outside the home: After the first week home you may go out to dinner, visit friends, go to a movie, go to confucianism, etc. Heavy activities: No hunting, skiing, jogging, snow shoveling, snowmobiling, lawn mowing, swimming, golf or tennis until after your return appointment with the surgeon. Do not ride motorcycles, [employer] tractors or horses. Avoid the use of a rifle with kickback against the shoulder for six months. Sleep: Try to establish normal sleep patterns. Long naps during the day may make it hard for you to sleep at night. Use the pain medication at bedtime for the first week at home. If you have nightmares, contact us. Some medications make this worse and these can be changed. Smoking: It is very important that you not smoke after surgery. Smoking cessation education was provided as appropriate. If you need further assistance with this please call and you will be referred toa smoking cessation specialist. Medications: Take only those medications listed on your discharge information. Keep your pain under control so you can be active, do your coughing and breathing exercises and sleep. Contact us if the pain medication isn't working for you. Do not take any herbal preparations until after you return to see the surgeon. Diet: You should follow a regular diet until your appetite returns to normal. At that point in time you should resume a low fat, low cholesterol, [place] [employer] Diet, Driving: No driving until cleared by your surgeon. Avoid long trips if possible. If you must go on along trip, stop the car and walk every hour. Shower/Bath: You may shower daily. No baths, soaking, or swimming until cleared by your surgeon. Wound care: Wash your incisions daily with antibacterial soap and rinse well, pat dry. Assess for any signs of infection such as increased redness, pain, warmth or drainage. Please call your surgeon's office if you have any discharge or drainage from your chest incision. If there is a lot of swelling,apply stew wraps during the day and remove at bedtime. Elevate your legs when you are sitting. REMOVE CHEST TUBE SUTURES ON OR AFTER 12/11/14. Follow up appointments: You should arrange to see your primary care physician, EDA WILSON MD, in two weeks or as soon as possible. You will return to clinic to see Dr. Ye Galeas or a Cardiac Surgery PA in ~4 weeks and will have a CXR, EKG, and ECHO at that time. A letter will be mailed to you with your appointment information. Cardiac Rehabilitation: [facility] Omar Matthews was seen today regarding participation in the outpatient Phase 2 Cardiac Rehabilitation at [facility] . The patient agrees to a referral to this program. The referral will be sent at discharge and the patient should be contacted by the Program within 1- 2 weeks from discharge. Future Appointments and Orders Future Orders Complete By Expires Echocardiogram Transthoracic([place]eb) [LDP315 Custom] 12/05/2014 12/05/2015 Process Instructions: If the Echocardiogram is to be PERFORMED in a location other than [place]--STOP and order [id number], Echocardiogram South/External. Scheduling Instructions: Questions: Is a Bubble Study requested?: Does the patient have Congenital Heart Disease?: Does patient require sedation?: GA rationale: Should this service/procedure be billed to the research sponsor?: XR chest routine PA & lateral [[id number] Custom] 12/05/2014 12/05/2015 Process Instructions: Scheduling Instructions: Questions: Where will study be performed?: [facility] Portable exam?: Reason for exam and clinical history: s/p AVR, aortic replacement Other pertinent information: Stat read required?: Date of injury if applicable: Requested Time: Should this service/procedure be billed to the research sponsor?: EKG 12 Lead [EKG1 Custom] As directed Process Instructions: Scheduling Instructions: Questions: Which location will this be performed?: [place] Is a rhythm strip needed?: No If EKG Reason is Pre-op Evaluation, indicate diagnosis for surgery.: Should this service/procedure be billed to the research sponsor?: Full code [COD2 Custom] As directed Process Instructions: 1) Ordering MD or HEAT TREAT OPERATOR must provide Order Justification documentation for a: Partial Code Order Do Not Attempt Resuscitation (DNR) Revision of Code Status order (Rescind DNR Order) 2) If the Attending of Record, as the Responsible decision maker selects a Partial Code or DNR order, a 2nd physician must document in a note, their agreement that resuscitation would be a non-beneficial treatment. 3) If the ordering provider is not the Attending of Record, the ordering MD or HEAT TREAT OPERATOR must obtain (verbal) approval of the Attending of Record. Completing this documentation indicates that you have obtained verbal approval from the Attending of Record Scheduling Instructions: Questions: Does patient have decision making capacity?: Yes, Order is based on Patients wishes. Responsible decision maker(s), other than patient: Content of discussion: Referral to Cardiac Rehab [NUM849 Custom] As directed Process Instructions: If no progress note charted, please enter Clinical details in comments. Scheduling Instructions: Questions: My question or request is: AVR- Cardiac rehab at [facility] Referral to Home Health - at DISCHARGE [CPS8239 CPT(R)] As directed Process Instructions: Scheduling Instructions: Comments: DOCUMENTATION FOR VNA SERVICES (INCLUDING THOSE PATIENTS WITH MEDICARE COVERAGE REQUIRING HOME VNA SERVICES AND/OR HOSPICE SERVICES) PATIENT'S LOCATION: Omar Matthews [address] [place] [phone] (home) No relevant phone numbers on file. Customer Contact Specialist's Name: Stephen and his Karen In discussion with the attending physician, it is certified that this patient is under their care and that they, or a Nurse Practitioner, or Physician Senior Hr Business Partner who is working directly with them, had aface to face encounter that meets the physician face to face encounter requirements with this patient on 12/05/2014 The encounter with the patient was in whole, or in part, for the following medical condition, which is the primary reason for home health care services: S/P tissue AVR and ascending aortic replacement In discussion with the provider, it is certified that, based on their findings, the following services are medically necessary for home health services. To provide the following care/treatments with the clinical findings supporting the need for servicesas follows: HOME HEALTH AGENCY: [facility] PHONE: [phone] FAX: [phone] RN orders: Cardiopulmonary assessment, incisional assessment, assess vital signs, assessment of rehab progress, medication management and effectiveness, home safety evaluation. PT ORDERS: Continue rehab for endurance, gait stability and strength with mobility and transfers. Home safety evaluation. Home exercise program if appropriate. Start of Care Date:24-48 hours after d/c SPECIAL INSTRUCTIONS: For any follow up questions, needs, or issues please call the Cardiac Surgery Office at [phone] FOR MEDICARE ONLY: (please delete this section if not Medicare) In discussion with the attending physician, it is certified that the clinical findings support that this patient is homebound i.e. absences from home require considerable and taxing effort due to: Restricted mobility and poor activity tolerance due to recent cardiac surgery. Patient requires assistance of others to leave the home. Home Health agencies which cover the area of patient's residence have been reviewed, either verballyor in writing, and patient/family have chosen the agency as noted. Questions: Agency name and contact information: [place] Patient location post discharge: Home What services are requested: Registered Nurse Start date: Responsible MD post discharge contact info: Dr. Galeas Arrangements for VNA/home care: As above. VN RN OR PCP TO PLEASE REMOVE CHEST TUBE SUTURES ON OR AFTER 12/11/14. Home oxygen therapy: N/A Signed: MAYE Edwards [facility] Section of Cardiothoracic Surgery Date: 12/05/2014 CC: MD Dante BENITEZ Andrew, MD [address] [place] [address] documented in this encounter Discharge Instructions Patient InstructionsAbhay Acharya PA - 12/05/2014 11:48 AM EDT Discharge Instructions: Call your doctor if: You have a fever of greater than 101 degrees, shaking chills, if you develop redness or drainage from your incision sites, or if you have questions. Please call your surgeon's office if you have any discharge or drainage from your chest incision. Your surgeon, Dr. Ye Galeas and/or the Cardiac Surgery Physician Senior Hr Business Partner Team may be reached at . Antibiotic prophylaxis: You will need to take antibiotics prior to many invasive tests and treatments, such as dental cleaning, which should be done every 6 months. Your primary care physician or your dentist can prescribe this medication. Please refer to the card with the [place] [employer] Gu idelines for more information. You have been provided with 3 copies of this card. Keep one for your self. Give one to your primary care physician and one to your dentist. Please refer to the [place] [employer] Guidelines for more information. Good dental care is important for your overall health. We recommend waiting ~3 months before returning to your dentist except in cases of emergency. Weight: Weigh yourself daily. Please call the office if you notice increasing weight, increasing fluid retention (edema), and/or SOB. Sternal (breast bone) precautions: No lifting greater than 7-10 pounds; no pushing or pulling with upper extremities; no excessive chest stretching for the first 4 weeks. Further instructions will be given to you at your follow-up appointment. Activity level: Walk three times a day. You should continue to increase your walks by 1-2 minutes each day. It is expected that you will be walking 20-30 minutes twice a day within 3-4 weeks after discharge to home. Rest between activities and after meals. Use common sense, don't exhaust yourself. Biking: You may use a stationary bicycle whenever you are comfortable enough to permit this. Tightenthe resistance slightly. Increase the amount of time on the bicycle as you would do for your walks, a minute or two each day. No biking outside until after your return appointment with Dr. Ye Galeas. You may use a [place] Track or treadmill but avoid any pulling motion with the arms. Home activities: You may do light housework, e.g. dusting, setting the table, washing dishes, preparing a meal. Light carpentry and gardening are allowed. Avoid trying to open tight jars and stuck windows. No vacuuming, mopping, raking, shoveling, digging or hoeing until after your return visit with the surgeon. Sexual activity: You may engage in sexual activity when you feel ready. Use a position that protectsyour sternum (breastbone). Do not have your partner lie on your chest. Stairs: There are no restrictions on stair climbing. Use common sense. Don't exhaust yourself. Activities outside the home: After the first week home you may go out to dinner, visit friends, go to a movie, go to confucianism, etc. Heavy activities: No hunting, skiing, jogging, snow shoveling, snowmobiling, lawn mowing, swimming, golf or tennis until after your return appointment with the surgeon. Do not ride motorcycles, [employer] tractors or horses. Avoid the use of a rifle with kickback against the shoulder for six months. Sleep: Try to establish normal sleep patterns. Long naps during the day may make it hard for you to sleep at night. Use the pain medication at bedtime for the first week at home. If you have nightmares, contact us. Some medications make this worse and these can be changed. Smoking: It is very important that you not smoke after surgery. Smoking cessation education was provided as appropriate. If you need further assistance with this please call and you will be referred toa smoking cessation specialist. Medications: Take only those medications listed on your discharge information. Keep your pain under control so you can be active, do your coughing and breathing exercises and sleep. Contact us if the pain medication isn't working for you. Do not take any herbal preparations until after you return to see the surgeon. Diet: You should follow a regular diet until your appetite returns to normal. At that point in time you should resume a low fat, low cholesterol, [place] Heart Association Diet, Driving: No driving until cleared by your surgeon. Avoid long trips if possible. If you must go on along trip, stop the car and walk every hour. Shower/Bath: You may shower daily. No baths, soaking, or swimming until cleared by your surgeon. Wound care: Wash your incisions daily with antibacterial soap and rinse well, pat dry. Assess for any signs of infection such as increased redness, pain, warmth or drainage. Please call your surgeon's office if you have any discharge or drainage from your chest incision. If there is a lot of swelling,apply stew wraps during the day and remove at bedtime. Elevate your legs when you are sitting. REMOVE CHEST TUBE SUTURES ON OR AFTER 12/11/14. Follow up appointments: You should arrange to see your primary care physician, EDA WILSON MD, in two weeks or as soon as possible. You will return to clinic to see Dr. Ye Galeas or a Cardiac Surgery PA in ~4 weeks and will have a CXR, EKG, and ECHO at that time. A letter will be mailed to you with your appointment information. Cardiac Rehabilitation: [facility] Omar Matthews was seen today regarding participation in the outpatient Phase 2 Cardiac Rehabilitation at [facility] . The patient agrees to a referral to this program. The referral will be sent at discharge and the patient should be contacted by the Program within 1- 2 weeks from discharge. Arrangements for VNA/home care: As above. VN RN OR PCP TO PLEASE REMOVE CHEST TUBE SUTURES ON OR AFTER 12/11/14. Home oxygen therapy: N/A AttachmentsThe following attachments cannot be sent through Care Everywhere.HTN (HYPERTENSION): DIURETICS : GENERAL INFO (LIBYAN)HYPERTENSION (LIBYAN) documented in this encounter Medications at Time of Discharge Medication Sig Dispensed Refills Start Date End Date aspirin 81 mg Tablet, Take 81 mg by mouth 30 tablet 3 12/05 Chewable daily. acetaminophen (TYLENOL) Take 2 tablets by 30 tablet 1 12/0504/21/2015 500 mg Tablet mouth every 6 hours as needed for Pain. esomeprazole (NEXIUM) 40 Take 1 capsule by 30 capsule 2 11/201401/16/2015 mg Capsule, Delayed mouth daily. Release(E.C.) HYDROmorphone (DILAUDID) Take 1-3 tablets by 80 tablet 0 01/16/2015 2 mg Tablet mouth every 4 hours as needed for Pain. meTOPROLOL tartrate Take 1 tablet by 60 tablet 1 12/05/2014 01/16/2015 (LOPRESSOR) 25 mg Tablet mouth 2 times daily. potassium chloride 20 mEq Take 20 mEq by 7 tablet 0 201401/16/2015 Tablet Sustained Release mouth daily. senna-docusate Take 2 tablets by 30 tablet 0 12/05/2014 (PERICOLACE) 8.6-50 mg mouth daily as Tablet needed for Constipation. furosemide (LASIX) 20 mg Take 1 tablet by 7 tablet 0 12/0501/16/2015 Tablet mouth daily. documented as of this encounter Progress Notes Ezequiel Keller RN - 12/05/2014 12:09 PM EDT Office of Care Management (OCM) / Clinical Contract Recruiter (CRC)/ Initial Assessment Discussed patient with Provider Team and in multidisciplinary discharge-planning rounds. Reviewed record and interviewed patient. Introduced/reviewed CRC role and services accepted. REASON for HOSPITALIZATION: S /P tissue AVR and ascending aortic replacement PMH See H&P Note.. PREVIOUS FUNCTIONAL STATUS: Independent at home. 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 CURRENT FUNCTIONAL STATUS: INd. [employer] SOCIAL / FAMILY SUPPORTS: Lives with his Karen. ADVANCE DIRECTIVES: No AD on file. HEALTH /PRESCRIPTION COVERAGE: [facility].No financial concerns expressed at this time. CURRENT HOME/COMMUNITY SERVICES/EQUIPMENT: DME: None Home Health Agency: None Other: ERGONOMIC SPECIALIST REFERRAL: Notified ERGONOMIC SPECIALIST - for Support/Financial/Medication Assistance; See ERGONOMIC SPECIALIST notes for further needs. PRIMARY CARE PHYSICIAN: EDA WILSON MD [address] [place] [id number] POTENTIAL DISCHARGE NEEDS: Pt would benefit from home VN at time of d/c. Team and Pt agree. A list of building construction professor/DMEs which serve the geographic area which the patient resides or the geographic arearequested by the patient/field representative/health education was made available.Full Disclosure Statement provided, as appropriate. [facility] PHONE: [phone] FAX: [phone] [facility]. Orders Pended for RN Referrals sent via [employer]. PATIENT/FAMILY EDUCATION NEEDS: Educated as to CRC role and hospital course, questions answered; verbalized understanding. Report understanding current plan of care. ANTICIPATED BARRIERS TO DISCHARGE: None ID at this time. TRANSPORTATION @ D/C: will provide ride at time of d/c. PLAN: CRC will continue to monitor progress, follow for continuity of care and assist with dischargeplanning while hospitalized Ezequiel CALDERON, RN Clinical Contract Recruiter Pager [phone] Eda Helms III, PA - 12/05/2014 11:36 AM EDT Cardiac Surgery Progress Note: ID: [id number] 64 year old man POD # 4 S/P tissue AVR and ascending aortic replacement. 24 Hour Events: -No reported events. -Cleared by PT for safe discharge home. S: Doing well. Pain controlled. Breathing fine. Tolerating diet. +BM/flatus. Urinating fine. O: Temperature Temp: 37 ??C (98.6 ??F) Temp: [36.7 ??C (98.1 ??F)-37.8 ??C (100 ??F)] Heart Rate Heart Rate: 76 Heart Rate: [74-82] Blood Pressure BP: 120/80 mmHg BP: (106-129)/(54-80) Respiratory Rate Resp: 16 Resp: [16-18] SpO2 SpO2: 100 % SpO2: [93 %-100 %] I/O last 3 completed shifts: In: 1770 [P.O.:1770] Out: 4275 [Urine:4275] I/O this shift: In: 700 [P.O.:700] Out: 0 I-1.0 L O-2.5 L Net negative 1.5 L Admit weight 90.72 kg Current Weight Weight - Scale: 91.6 kg (201 lb 15.1 oz) Patient Vitals for the past 168 hrs: Weight 12/05/14 0500 91.6 kg (201 lb 15.1 oz) 12/04/14 0615 92.9 kg (204 lb 12.9 oz) 12/03/14 0641 95.4 kg (210 lb 5.1 oz) 12/02/14 0600 96.7 kg (213 lb 3 oz) 12/01/14 0626 90.719 kg (200 lb) Physical exam: General: Up in chair in NAD. Neuro: Awake and alert. No gross FND. Lungs: LS present bilaterally. No W/R. Heart: RR S1/S2. No M/R. No edema. SR 75-0-80's. No events. PW A/V removed without issues. Bandages placed. Patient tolerated this well. No overt complications. Abdomen: Soft, NT, ND, +BS. Ext: Warm, dry, and well perfused. Incisions: Sternotomy C/D/I. Tubes/Lines/Drains: PIV site ok. LABS: Recent Labs 12/04/14 0445 WBC 10.8* HGB 12.3* HCT 36.7* PLATELET 128* Recent Labs 12/05/14 0706 12/04/14 0445 12/03/14 0610 NA -- 140 -- K 3.8 3.7 4.0 CL -- 102 -- CO2 -- 27 -- BUN -- 12 -- CREATININE -- 1.03 -- GLUCOSE -- 103 -- CALCIUM -- 8.6 -- Assessment/Plan: POD # 4 S/P tissue AVR and ascending aortic replacement. -Medically optimized for DC home with VNA today. Medications to [employer] ([place], [place]) -CW lasix 20 mg PO daily for 7 days. -Same medication regimen otherwise. -Check vaccination status. -Follow-up with PCP in ~ 2 weeks. -Follow-up with Cardiology DONAL. -Follow-up with Dr. Galeas in ~ 4 weeks with CXR, EKG, and Echo. DW Attending Surgeon on rounds. Signed: Eda Helms III, MS, PA-C [facility] Section of Cardiothoracic Surgery Date: 12/05/2014 Gracie Johnson PTA - 12/05/2014 9:53 AM EDT Physical Therapy Treatment Note Visit #: 2 Patient Dx: Patient is a 64 y[address] Dr[address] Galeas, admitted on 12/01/2014 with and dilated ascending aorta. Patient underwent AVR and ascending aorta replacement on day of admission. Post-op course on pathway. Precautions: Sternal (no lifting >7-10 lbs.; no pushing or pulling with UE's; no excessive chest stretching). Staff communication/Mobility Recommendations: Ambulates indep. Interval History: no acute events, pacer wires D/C'ed. S: I am doing good. O: Patient seen for 17 mins for transfers, gait, bed mobility, stairs, therex and pt ed to address goals. Pt demonstrated the following: ?? Sit to stand indep, 1 verbal cue for sternal precautions. ?? Ambulated 200 feet without AD, indep ?? Up and down 3 stairs with light railing indep. ?? Sit><supine with HOB flat, indep ?? Issued and Reviewed sternal precaution sheet and HEP, able to perform per sheet. ?? Reinforced need for sternal precautions, pt understands. ?? All needs met before leaving. Pain: none Education: Pt/family education ongoing. A: Improved ambulation without AD. Balance good. Did require 1 verbal cue for sternal precautions but remember throughout rest of session. Indep with all activity, goals met. Physical Therapy Goals: To be achieved by 12/05/14. 1. Pt will ambulate independently 200 ft. without an assistive device to allow for a safe d/c. MET 2. Pt will perform all post op cardiac surgery exercises adequately. MET 3. Pt will demonstrate independence with incentive spirometer and/or threshold PEP to promote lung function. MET 4. Pt will demonstrate understanding of sternal precautions to allow for a safe d/c. MET 5. Pt will be able to transfer sit <-> stand independently while maintaining sternal precautions to allow for a safe d/c. MET 6. Pt will be able to go supine <-> sit independently while maintaining sternal precautions toallow for a safe d/c. MET 7. Pt will be able to go up and down 3-4 stairs using a rail for balance only independently to prepare for a safe d/c. MET Discharge Recommendations: Home with family P: Home when medically ready. Total time spent with patient: 17 minutes Total timed interventions: 17 minutes Pager: [phone] Gracie Johnson PTA Physical Therapy Rehabilitation Department Arlene Lin MD - 12/04/2014 3:16 PM EDT Cardiac Surgery Progress Note 64 y.o. M pod 2 s/p AVR with tube graft. 24 hr events: No events BP 108/64 Pulse 77 Temp(Src) 37.2 ??C (99 ??F) (Oral) Resp 18 Ht 170.2 cm (5' 7.01) Wt 92.9 kg (204 lb 12.9 oz) BMI 32.07 kg/m2 SpO2 100% Intake/Output Summary (Last 24 hours) at 12/04/14 1516 Last data filed at 12/04/14 1300 Gross per 24 hour Intake 1925 ml Output 3275 ml Net -1350 ml Neuro: neuro intact, pain controlled CV: NSR in 80s Pulm: clear to auscultation GI: abdomen soft : no issues Ext: palpable pulses, warm extremties PW in 64 y.o. M pod#3 s/p AVR. Making progress. Neuro: Dilaudid/APAP CV: Metoprolol 25'' Pulm: doing well on room air, POD #3 CXR looks ok. Pulmonary toilet. GI: tolerating PO : [place] out, even fluid status or admission. Up 2 kg; Likely can go without lasix at discharge. ID: no acute issues [facility] Ar[facility] Lni MD Melanie Zabala RN - 12/03/2014 12:34 PM EDT Inc freq of PAC's. notified. 1215: Sust rate of [address] [facility] notified. Met ordered. Pt HR back down to 90's without intervention. Will continue to monitor. Claudia Gonzalez MD - 12/03/2014 11:52 AM EDT Cardiac Surgery Progress Note 64 y.o. M pod 2 s/p AVR with tube graft. 24 hr events: Tachycardic this morning with irregular beats, increased beta maulik Pain controlled BP 111/49 Pulse 94 Temp(Src) 37.3 ??C (99.1 ??F) (Oral) Resp 19 Ht 170.2 cm (5' 7.01) Wt 95.4 kg (210 lb 5.1 oz) BMI 32.93 kg/m2 SpO2 93% Intake/Output Summary (Last 24 hours) at 12/03/14 1153 Last data filed at 12/03/14 1133 Gross per 24 hour Intake 1550 ml Output 2300 ml Net -750 ml Neuro: neuro intact, pain controlled CV: tachycardic, irregular Pulm: clear to auscultation GI: abdomen soft : no issues Ext: palpable pulses, warm extremties PW in 64 y.o. M pod#2 s/p AVR. Progressing well. Increase beta maulik Neuro: Dilaudid/APAP CV: Metoprolol 25'' Pulm: doing well on room air, cxr tomorrow GI: tolerating PO : trin[place] out ID: no acute issues Dispo: [facility] Claudia Gonzalez MD Jennifer Raymundo MD - 12/02/2014 10:58 AM EDT Technical Sourcing Recruiter Progress Note 24/S: CRYS. [place] catheter discontinued. OOB to chair. Tolerating chips. Denies nausea. 37.8/37.2 70s-100s 100s-120s/60s-70s 97-100% Weight 96.7 kg Preop weight 92 kg 11/30 1901 - 12/02 0700 In: 5017.4 [P.O.:200; I.V.:3959.4] Out: 3470 [Urine:2960] Chest tube output 510 (300 in last 12 hours) NC/AT EOMI PERRL S1 S2 NRRR CTAB Soft, nontender, no masses/HSM Neuro grossly intact A/P: 64yo man POD 1 s/p AV replacement with tube graft doing well. On pathway. Discontinue mediastinal chest tubes Start metoprolol 12.5 bid Start furosemide 20 IV bid Continue pathway Stepdown to floor JENNIFER RAYMUNDO MD [id number] Mayank Calabrese RN - 12/02/2014 6:53 AM EDT Bharathi VILLAVICENCIO updated. 1 brief episode <1minute, of HR in the 40's. This time, however, SBP did not drop below 100. Pt currently capturing about 75%. Kylie Hernandez RCP - 12/01/2014 4:16 PM EDT Pt received from the OR and placed on the following initial vent settings: SIMV 550 x 12 + PEEP 5, 100%. He arrived with a size 8 ETT, 24 @ the teeth. Initial post op AB.31/46/328/23 - oxygen weaned to 40%, and RR increased to 14. 14:30 - SBT initiated, and tolerated well. He was assessed for extubation, and extubated to 5 LPM NC, Sp02 in the high 90s. Positive cough and voice, no stridor. He is currently on 5 LPM NC, Sp02 97%. Will continue to monitor. documented in this encounter H&P Notes Ye Galeas MD - 12/01/2014 7:04 AM EDT He has had some sinus congestion, no fevers, no cough or productive sputum. Feels better this morning. Lungs are clear. I have seen and examined the patient and we are ready to proceed. Source Note - Ye Galeas MD - 12/01/2014 6:54 AM EDT I was asked to see this patient by Dr. Howell for aortic stenosis and dilated ascending aorta. 64 yo male who has been followed for some time with progressive aortic stenosis. He has a lifelong history of a murmur. He has recently noted dyspnea on exertion, some chest tightness, palpitations andoccasional lightheadedness. Most recent echo shows LVEF 65%, FABIOLA 0.6 cm2, mean gradient 52 mmHg, ascending aorta 4.1 cm. Cardiac cath shows no CAD, nml coronary anatomy, PAP 30/11 with CI 3.1. He comesin today to discuss surgical valve replacement. No Known Allergies Active Medications Outpatient Prescriptions Marked as Taking for the 11/14/14 encounter (Office Visit) with Ye Galeas MD Medication Sig Dispense Refill ??? metoprolol tartrate (LOPRESSOR) 25 mg Tablet Take 25 mg by mouth daily. Takes 1/2 tablet ??? lisinopril-hydrochlorothiazide (PRINZIDE;ZESTORETIC) 10-12.5 mg Tablet Take 1 tablet by mouth daily. Patient Active Problem List Diagnosis Code ??? Aortic stenosis 424.1 ??? Hypertension, essential, benign 401.1 ??? Ascending aorta dilatation 447.71 PMH: Aortic stenosis HTN Right wrist fracture FH: brother of sudden a age 58, no autopsy SH: and seen with his , one son and 2 grandchildren. 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 Nonsmoker, drinks occasionally. Review of Systems - General ROS: negative Psychological ROS: negative Ophthalmic ROS: negative ENT ROS: negative Allergy and Immunology ROS: negative Hematological and Lymphatic ROS: negative Endocrine ROS: negative Respiratory ROS: negative for - cough, hemoptysis, orthopnea or pleuritic pain Cardiovascular ROS: positive for - dyspnea on exertion Gastrointestinal ROS: no abdominal pain, change in bowel habits, or black or bloody stools Genito-Urinary ROS: no dysuria, trouble voiding, or hematuria Musculoskeletal ROS: negative Neurological ROS: no TIA or stroke symptoms Physical Exam: BP 120/80 Pulse 51 Ht 170.2 cm (5' 7) Wt 92.534 kg (204 lb) BMI 31.94 kg/m2 SpO2 99% HEENT: nc/at, eomi, perrl, anicteric, pharynx clear NECK: supple without bruit CV: RRR, 3/6 systolic honking murmur LUNG: CTA ABD: SOft, NT, ND, no masses, no HSM EXT: no CCE, nml pulse exam in all extremities, FROM NEURO: grossly intact SKin: no lesions or rashes A/P: 64 yo male with symptomatic critical aortic stenosis. He meets clear indications for aortic valve replacement. It is likely his valve is bicuspid. He does have a dilated aorta, but appears to be below threshold for replacement. I will assess this in the OR. He would like a tissue valve. He will try to see a dentist prior to surgery. Plan: AVR, tissue and possible ascending aortic replacement. He understands the procedure and risks. Ye Galeas MD - 12/01/2014 6:54 AM EDT I was asked to see this patient by Dr. Howell for aortic stenosis and dilated ascending aorta. 64 yo male who has been followed for some time with progressive aortic stenosis. He has a lifelong history of a murmur. He has recently noted dyspnea on exertion, some chest tightness, palpitations andoccasional lightheadedness. Most recent echo shows LVEF 65%, FABIOLA 0.6 cm2, mean gradient 52 mmHg, ascending aorta 4.1 cm. Cardiac cath shows no CAD, nml coronary anatomy, PAP 03/07 with CI 3.1. He comesin today to discuss surgical valve replacement. No Known Allergies Active Medications Outpatient Prescriptions Marked as Taking for the 11/14/14 encounter (Office Visit) with Ye Galeas MD Medication Sig Dispense Refill ??? metoprolol tartrate (LOPRESSOR) 25 mg Tablet Take 25 mg by mouth daily. Takes 1/2 tablet ??? lisinopril-hydrochlorothiazide (PRINZIDE;ZESTORETIC) 10-12.5 mg Tablet Take 1 tablet by mouth daily. Patient Active Problem List Diagnosis Code ??? Aortic stenosis 424.1 ??? Hypertension, essential, benign 401.1 ??? Ascending aorta dilatation 447.71 PMH: Aortic stenosis HTN Right wrist fracture FH: brother of sudden a age 58, no autopsy SH: and seen with his , one son and 2 grandchildren. 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 Nonsmoker, drinks occasionally. Review of Systems - General ROS: negative Psychological ROS: negative Ophthalmic ROS: negative ENT ROS: negative Allergy and Immunology ROS: negative Hematological and Lymphatic ROS: negative Endocrine ROS: negative Respiratory ROS: negative for - cough, hemoptysis, orthopnea or pleuritic pain Cardiovascular ROS: positive for - dyspnea on exertion Gastrointestinal ROS: no abdominal pain, change in bowel habits, or black or bloody stools Genito-Urinary ROS: no dysuria, trouble voiding, or hematuria Musculoskeletal ROS: negative Neurological ROS: no TIA or stroke symptoms Physical Exam: BP 120/80 Pulse 51 Ht 170.2 cm (5' 7) Wt 92.534 kg (204 lb) BMI 31.94 kg/m2 SpO2 99% HEENT: nc/at, eomi, perrl, anicteric, pharynx clear NECK: supple without bruit CV: RRR, 3/6 systolic honking murmur LUNG: CTA ABD: SOft, NT, ND, no masses, no HSM EXT: no CCE, nml pulse exam in all extremities, FROM NEURO: grossly intact SKin: no lesions or rashes A/P: 64 yo male with symptomatic critical aortic stenosis. He meets clear indications for aortic valve replacement. It is likely his valve is bicuspid. He does have a dilated aorta, but appears to be below threshold for replacement. I will assess this in the OR. He would like a tissue valve. He will try to see a dentist prior to surgery. Plan: AVR, tissue and possible ascending aortic replacement. He understands the procedure and risks. documented in this encounter Miscellaneous Notes Op Note - Ye Galeas MD - 12/13/2014 3:25 PM EDT [facility] [place] Patient Name: Omar Matthews : [id number] MR#: [id number] Case Date: 12/01/2014 Surgeon: Surgeon(s) and Role: * Ye Galeas MD - Primary * Eduardo Kong PA - Physician Senior Hr Business Partner * Melanie Aguirre MD Preoperative diagnosis: , dilated ascending aorta Postoperative diagnosis: , dilated ascending aorta Procedure(s): AVR 25 TRIFECTA PERICARDIAL, ASCENDING AORTIC REPLACEMENT 28 VASKUTEK GRAFT, CULLEN Indications for Procedure: Mr. Matthews is a 64-year-old gentleman who has been followed for some period of time with progressive aortic stenosis. He has a lifelong history of a heart murmur. He has recently noted dyspnea on exertion, chest tightness, palpitations, and occasional lightheadedness. His most recent echocardiogram shows an ejection fraction of 65%. He has a calculated aortic valve area of 0.6 cm squared with a mean gradient of 52 mmHg across the valve. The ascending aorta measured 4.1 cm on echo. Cardiac catheterization showed no coronary artery disease with normal coronary anatomy. He is taken to the operating room for a elective aortic valve replacement and possible ascending aortic replacement. Findings at Time of Surgery: The aorta was dilated and quite thin walled. The valve was bicuspid with fusion of the left and right leaflets. There was heavy calcification of the valve an annulus. The valve was replaced using a 25 Trifecta pericardial valve, which was placed with 17 pledgetted mattress sutures with a supra-annular seat of the valve. The ascending aorta was replaced using a 28 Vascutek graft. The aorta was replaced due to the thin nature of the wall of the aorta. Patient weaned easily from cardiopulmonary bypass. CULLEN showed normal left ventricular function with no perivalve leak. Conduct of Cardiopulmonary Bypass: Routine aortic and venous cannulation was accomplished. Antegrade and retrograde cardioplegia were utilized with cold induction of arrest. Body temperature was maintained at normothermia. Total pump time was 148 minutes. Crossclamp time was 129 minutes. Technical Procedure Used: The patient was placed on the table in a supine position and adequate general endotracheal anesthesia was induced. Appropriate monitoring lines were placed and the patient was prepped and draped in the usual fashion. Median sternotomy was performed. Heparin was administered to the patient and the pericardium was opened in the midline. Routine aortic and venous cannulation was accomplished. Antegrade and retrograde cardioplegia cannulas were placed within the heart and cardiopulmonary bypass was initiated. The ascending aorta was opened and immediately we identified that the wall was quite thin and abnormal. We therefore decided to proceed with ascending aortic replacement. The ascending aorta was excised from the sinotubular junction to a point approximately 2 cm proximal to the takeoff of the innominate artery. We now examined the valve with the above-stated findings. The leaflets were excised and a rongeur was used to debride significant amount of calcification from the annulus. The valve was sized to a 25 Trifecta pericardial valve. Seventeen pledgetted mattress sutures were placed circumferentially in the aortic annulus with pledgets on the ventricular side. These were brought up through the sewing ring of the valve, which was lowered into position and secured in place. There was an excellent seat of the valve in the annulus. The ascending aorta was then sized to a 28 Vascutek tube graft. We performed a distal anastomosis of the tube graft to the distal ascending aorta using running 4-0 Prolene suture. The graft was then cut and measured to side, and we performed a proximal anastomosis of the ascending aortic graft to the aortic root running 4-0 Prolene suture. BioGlue was used to complete the anastomosis. Hotshot was then administered, first retrograde, then antegrade, then warm blood was delivered sequentially antegrade and retrograde until the heart began to beat, and the aortic crossclamp was removed. Epicardial pacing wires were placed in the right atrium, right ventricle, and brought out through the anterior abdominal wall. Two chest tubes were placed within the chest. The lungs were reinflated and CULLEN was used to guide deairing of the heart. When adequate deairing had been accomplished, antegrade and retrograde cardioplegia cannulas were removed. Sites were oversewn with 5-0 Prolene suture. Pericardium was inspected for bleeding. The patient then was easily weaned from cardiopulmonary bypass. CULLEN showed normal ventricular function with no perivalve leak. Protamine was administered for reversal of heparin effect. At the conclusion of protamine administration, the aortic cannula was removed. Site was oversewn with 5-0 Prolene suture. The pericardium was inspected for bleeding. When hemostasis was assured, chest wall retractor was removed and the chest wall was inspected for bleeding. When hemostasis was assured, sternum was approximated using four surgical steel cables. Subcutaneous tissues were irrigated and closed using running 0 Vicryl suture. Skin was closed using running subcuticular stitch of 4-0 Monocryl. The patient tolerated the procedure and was transported to the Cardiac Surgical Intensive Care Unit in stable condition. Needle and sponge were counts reported correct at the conclusion of the procedure. Plan of Care - Ernesto Pate RN - 12/05/2014 11:46 AM EDT Problem: Skin Integrity Impairment, Risk/Actual (Adult, Obstetrics) Intervention: Pressure Reduction Devices 12/05/14 0825 Skin Interventions Pressure Reduction Devices pressure-redistributing mattress utilized Intervention: Pressure Reduction Techniques 12/05/14824 Skin Interventions Pressure Reduction Techniques pressure points protected;skin to device areas padded;tubing/devices free from under/on patient Intervention: Skin/Mucous Membrane Protection 12/05/14824 Skin Interventions Skin/Mucous Membrane Protection oral rinse provided;pressure points protected;skin to device areas padded;tubing/devices free from under/on patient Intervention: Wound Healing Promotion 12/05/14824 Skin Interventions Wound Healing Promotion adequate fluids provided;oral hygiene provided;perfusion maximized;sleep/rest promoted Goal: Skin Integrity/Wound Healing Patient will demonstrate the desired outcomes. 12/05/141139 Skin Integrity Impairment, Risk/Actual (Adult, Obstetrics) Skin Integrity/Wound Healing making progress toward outcome Problem: Cardiac Surgery (Adult) Intervention: Hemostasis Promotion 12/05/141139 Cardiac Interventions Hemostasis Promotion activity minimized Intervention: Hemodynamic Stabilization 12/05/141139 Cardiac Interventions Hemodynamic Stabilization antihypertensive medication management Intervention: Dysrhythmia Management 12/05/141139 Cardiac Interventions Dysrhythmia Management dysrhythmia medication management Intervention: Airway/Ventilation Management 12/05/141139 Respiratory Interventions Airway/Ventilation Management activity adjusted to patient tolerance;bronchial hygiene promoted;comfort measures provided;hydration promoted Intervention: O2 Consumption Minimization 12/05/141139 Cardiac Interventions O2 Consumption Minimization breathing techniques utilized;care clustered;low stimulation maintained;relaxation techniques promoted;sleep/rest promoted Intervention: Bowel Function Promotion 12/05/141139 Gastrointestinal Interventions Bowel Function Promotion activity promoted;hydration promoted Intervention: Fluid Management 12/05/141139 Nutrition Interventions Fluid Management fluids promoted Intervention: Metabolic/Electrolyte Imbalance Management 12/05/141139 Nutrition Interventions Metabolic/Electrolyte Imbalance Management electrolyte binding therapy initiated Goal: Signs and symptoms of listed potential problems will be absent or manageable (reference (Cardiac Surgery (Adult)) CPG) 12/05/141139 Cardiac Surgery Problems Assessed (Cardiac Surgery) all Problems Present (Cardiac Surgery) dysrhythmia/arrhythmia;electrolyte imbalance Problem: Cardiac Output, Decreased (Adult, Obstetrics) Intervention: Functional Esmeralda/Activity Promotion 12/05/141139 Musculoskeletal Interventions Functional Esmeralda/Activity Promotion independence in BADLs promoted;personal routines for BADL/IADL promoted;up in chair for meals promoted Intervention: Self-Care Promotion 12/05/141139 Musculoskeletal Interventions Self-Care Promotion personal routines for BADL/IADL promoted;independence encouraged while providingassistance Goal: Identify Signs and Symptoms and Related Risk Factors Signs and symptoms and related risk factors are identified upon initiation of Human Response Clinical Practice Guideline (CPG) 12/05/14 1140 Cardiac Output, Decreased Personal Related Risk Factors (Cardiac Output, Decreased) activity, increased or decreased Treatment Related Related Risk Factors (Cardiac Output, Decreased) cardiac surgery/procedure;medication Goal: Adequate Cardiac Output/Effective Tissue Perfusion Patient will demonstrate the desired outcomes. 12/05/14 1140 Cardiac Output, Decreased (Adult, Obstetrics) Adequate Cardiac Output/Effective Tissue Perfusion making progress toward outcome Comments: OUTCOME EVALUATION NOTE: OUTCOME SUMMARY: Alert and oriented during the shift. Pt denies any pain, SOB or other discomfort during the shift. MD FAJARDO temp pacing wire. Pt received discharge ordered. Pt given cardiac surgery information, HTN education, Lasix information, and AVS via verbal and handout. Pt verbalized understanding of cardiac surgery information, HTN education, Lasix information, and AVS. Gave report to VINNIE Brower RN and fax discharge summery to MICHELLE. Midsternum incision I/C/D. D/C tele and IV. Consult Note - Noy Ku RN - 12/05/2014 10:38 AM EDT [facility] Omar Matthews was seen today regarding participation in the outpatient Phase 2 Cardiac Rehabilitation at [facility] . The patient agrees to a referral to this program. The referral will be sent at discharge and the patient should be contacted by the Program within 1- 2 weeks from discharge. Plan of Care - Melanie Zabala RN - 12/04/2014 6:11 PM EDT Problem: Skin Integrity Impairment, Risk/Actual (Adult, Obstetrics) Goal: Identify Signs and Symptoms and Related Risk Factors Signs and symptoms and related risk factors are identified upon initiation of Human Response Clinical Practice Guideline (CPG) Outcome: Ongoing (Interventions Implemented as Appropriate) OUTCOME EVALUATION NOTE: OUTCOME SUMMARY: Pt had BM. Ambulated and performed daily care independently. On Room Air. No reports of pain. PLAN MOVING FORWARD: Continue to assess and plan for discharge. INDIVIDUALIZED FALL PREVENTION: Assistance: Ind Supervision: Ind Surveillance: Hourly rounding. Will continue to monitor. CPG GOAL OUTCOME EVALUATION: Plan of Care - Elizabeth Duvall RN - 12/04/2014 3:58 AM EDT Problem: Skin Integrity Impairment, Risk/Actual (Adult, Obstetrics) Goal: Skin Integrity/Wound Healing Patient will demonstrate the desired outcomes. 12/03/14 0434 Skin Integrity Impairment, Risk/Actual (Adult, Obstetrics) Skin Integrity/Wound Healing making progress toward outcome Comments: OUTCOME EVALUATION NOTE: OUTCOME SUMMARY: VSS, no CP or SOB noted during shift. Pt rested comfortably over night. PLAN MOVING FORWARD: Cont on pathway INDIVIDUALIZED FALL PREVENTION: Assistance: Independent Supervision: Call davison within reach. Rings appropriately. Surveillance: Purposeful hourly rounding Plan of Care - Melanie Zabala RN - 12/03/2014 5:49 PM EDT Problem: Skin Integrity Impairment, Risk/Actual (Adult, Obstetrics) Goal: Identify Signs and Symptoms and Related Risk Factors Signs and symptoms and related risk factors are identified upon initiation of Human Response Clinical Practice Guideline (CPG) Outcome: Ongoing (Interventions Implemented as Appropriate) OUTCOME EVALUATION NOTE: OUTCOME SUMMARY: Pt had a good day today. Ambulated several times around unit independently and without pain. Inc in PAC's, inc HR (MD aware). No other events to note. PLAN MOVING FORWARD: Continue to assess and plan for discharge INDIVIDUALIZED FALL PREVENTION: Assistance: I Supervision: Ind Surveillance: Hourly rounding. Will continue to monitor CPG GOAL OUTCOME EVALUATION: Plan of Care - Elizabeth Duvall RN - 12/03/2014 4:34 AM EDT Problem: Skin Integrity Impairment, Risk/Actual (Adult, Obstetrics) Goal: Skin Integrity/Wound Healing Patient will demonstrate the desired outcomes. 12/03/14 0434 Skin Integrity Impairment, Risk/Actual (Adult, Obstetrics) Skin Integrity/Wound Healing making progress toward outcome Comments: OUTCOME EVALUATION NOTE: OUTCOME SUMMARY: Pt complained of sternal incisional pain, acetaminophen and PRN dilaudid given withgood effect (see MAR). Pt rested comfortably overnight. PLAN MOVING FORWARD: Cont on pathway INDIVIDUALIZED FALL PREVENTION: Assistance: Standby with walker Supervision: Call davison within reach. Rings appropriately. Surveillance: Purposeful hourly rounding Initial Assessments - Betzy Lazcano, PT - 12/02/2014 8:47 AM EDT Physical Therapy Evaluation Cardiac Surgery Patient Profile: Patient is a 64 y[address] Dr[address] Galeas, admitted on 12/01/2014 with and dilated ascending aorta. Patient underwent AVR and ascending aorta replacement on day of admission. Post-opcourse on pathway. Referred to PT. Precautions: sternal (no lifting >7-10 lbs.; no pushing or pulling with UE's; no excessive chest stretching). PMH: HTN Social History: Patient lives with their spouse in a 1 story home with 2 steps and rail to enter. 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 Equipment at home: none Subjective: I know that I am not supposed to drive for 30 days. Objective: Pt seen in [facility] and then on after transfer for ex's, instruction in precautions, mobility and gait. Pain: very minimal pain Vital Signs/Cardiopulmonary Status: SpO2: 100% on RA HR: 70's BP: 117/74 Mental Status/Behavior: alert, oriented to person, place, and time, very pleasant Skin: incision dry Sensation: normal ROM: WFL Strength: WFL Bed Mobility: Supine to Sit: nt Sit to Supine: with cues and min assist Pt needed cues to maintain sternal precautions. Transfers: Sit to Stand: with supervision only Stand to Sit: with supervision, Pt did not need cues to maintain sternal precautions. Gait: Pt walked 150' with fww for support on RA at slow pace, but stable Balance: good with fww Education: Pt was educated on post-op sternal precautions, use of incentive spirometer, the importance of deep breathing, and post-op cardiac exercises. Pt performed 3-5 reps of the following exercises today: head nod, head twist, shoulder flexion, kneeextension, ankle circles, and ankle pumps. Pt was given a written list of exercises and precautions. Pt's status, treatment, and mobility recommendations were discussed with the nursing staff. Assessment: Functional mobility is limited by some anxiety. Anticipate that he will progress very well toward goals. Pt would benefit from continued physical therapy to maximize functional mobility, independence and safety. Expect that he will not need a walker at d/c. Pt understands and agrees with PT plan, goals, and tentative discharge plan. Equipment needs: none Goals: To be achieved by 12/05/14. 1. Pt will ambulate independently 200 ft. without an assistive device to allow for a safe d/c. 2. Pt will perform all post op cardiac surgery exercises adequately. 3. Pt will demonstrate independence with incentive spirometer and/or threshold PEP to promote lung function. 4. Pt will demonstrate understanding of sternal precautions to allow for a safe d/c. 5. Pt will be able to transfer sit <-> stand independently while maintaining sternal precautions to allow for a safe d/c. 6. Pt will be able to go supine <-> sit independently while maintaining sternal precautions toallow for a safe d/c. 7. Pt will be able to go up and down 3-4 stairs using a rail for balance only independently to prepare for a safe d/c. Treatment Plan: Pt to be seen 1-2 more times for bed mobility, gait and stairs. Tentative D/C Plan: home with family. Total time spent with patient: 40 minutes Total timed interventions: 0 minutes Betzy Lazcano, PT Pager: [phone] Physical Therapy Rehabilitation Department Brief Op Note - Ye Galeas MD - 12/01/2014 12:30 PM EDT Brief Operative Note Patient Name: Omar Matthews : [id number] MR#: [id number] Case Date: 12/01/2014 Surgeon: Surgeon(s) and Role: * Ye Galeas MD - Primary * Eduardo Kong PA - Physician Senior Hr Business Partner * Melanie Aguirre MD Preoperative diagnosis: , dilated ascending aorta Postoperative diagnosis: , dilated ascending aorta Procedure(s): AVR 25 TRIFECTA PERICARDIAL, ASCENDING AORTIC REPLACEMENT 28 VASKUTEK GRAFT, CULLEN Anesthesia: General Estimated Blood Loss: CELL SAVER Drains: 2 CHEST TUBES,2A-2V WIRES Disposition: [facility] Condition: STABLE CONDUCT OF CARDIOPULMONARY BYPASS: Venous Cannula THREE STAGE Arterial cannula 20 EOPA Temperature management: NORMOTHERMIC TPT 148 min/CCT 129 min FINDINGS: DILATED, THIN WALLED AORTA. BICUSPID AORTIC VALVE WITH FUSION OF LEFT AND RIGHT. HEAVY CALCIFICATION OF THE VALVE AND ANNULUS. 25 TRIFECTA PLACED WITH 17 SUTURES. ASCENDING AORTA REPLACED WITH 28 VASKUTEK GRAFT. WEANED EASILY FROM CPB. CULLEN--NML LVEF, NO PERIVALVE LEAK. Attestation: Case Date: 12/01/2014 I WAS PRESENT FOR THE ENTIRE PROCEDURE INCLDUING OPENING AND CLOSING. (Please see the Surgical Encounter Summary for any Implant and Specimen details pertinent to this patient.) documented in this encounter Plan of Treatment Scheduled Orders Name Type Priority Associated Diagnoses Order S chedule EKG 12 Lead ECG Routine Status post ascending aortic Ordered: 12/05/2014 replacement Scheduled Referrals Name Type Priority Associated Diagnoses Order S chedule Referral to Outpatient Referral Routine Aortic stenosis Order ed: Cardiac Rehab 12/05/2014 documented as of this encounter Procedures Procedure Name Priority Date/Time Associated Comments Diagnosis LAB SCAN 12/06/2014 12:00 AM EDT IMPLANTABLE DEVICES 12/06/2014 12:00 SCAN AM EDT CONTRACT TECHNICIAN SCAN 12/06/2014 12:00 AM EDT POTASSIUM Routine 12/05/2014 7:06 AM Results f or this EDT procedure are i n the results section. XR CHEST PA AND Routine 12/04/2014 8:45 AM Result s for this LATERAL EDT procedure are i n the results section. HEMOGRAM Routine 12/04/2014 4:45 AM Results f or this EDT procedure are i n the results section. DIFFERENTIAL, Routine 12/04/2014 4:45 AM Results for this AUTOMATED EDT procedure are i n the results section. CBC (WITH DIFF) Routine 12/04/2014 4:45 AM EDT BASIC METABOLIC PANEL Routine 12/04/2014 4:45 AM Results for this (NON-FASTING) EDT procedure are in the results section. POTASSIUM Routine 12/03/2014 6:10 AM Results f or this EDT procedure are i n the results section. POCT GLUCOSE Routine 12/02/2014 8:31 PM Results f or this EDT procedure are i n the results section. POCT GLUCOSE Routine 12/02/2014 4:08 PM Results f or this EDT procedure are i n the results section. POCT GLUCOSE Routine 12/02/2014 2:14 PM Results f or this EDT procedure are i n the results section. POCT GLUCOSE Routine 12/02/2014 12:46 Results for this PM EDT procedure are i n the results section. POCT GLUCOSE Routine 12/02/2014 10:17 Results for this AM EDT procedure are i n the results section. POCT GLUCOSE Routine 12/02/2014 8:22 AM Results f or this EDT procedure are i n the results section. POCT GLUCOSE Routine 12/02/2014 6:52 AM Results f or this EDT procedure are i n the results section. HEMOGRAM Routine 12/02/2014 2:00 AM Results f or this EDT procedure are i n the results section. DIFFERENTIAL, Routine 12/02/2014 2:00 AM Results for this AUTOMATED EDT procedure are i n the results section. CARDIAC ENZYMES Routine 12/02/2014 2:00 AM Result s for this ([facility]) EDT procedure are i n the results section. CREATININE Routine 12/02/2014 2:00 AM Results f or this EDT procedure are i n the results section. CBC (WITH DIFF) Routine 12/02/2014 2:00 AM EDT BUN Routine 12/02/2014 2:00 AM Results f or this EDT procedure are i n the results section. POTASSIUM Routine 12/02/2014 2:00 AM Results f or this EDT procedure are i n the results section. GLUCOSE, FASTING Routine 12/02/2014 2:00 AM Resul ts for this EDT procedure are i n the results section. POCT GLUCOSE Routine 12/02/2014 1:59 AM Results f or this EDT procedure are i n the results section. POCT GLUCOSE Routine 12/01/2014 10:26 Results for this PM EDT procedure are i n the results section. POCT GLUCOSE Routine 12/01/2014 8:08 PM Results f or this EDT procedure are i n the results section. POCT GLUCOSE Routine 12/01/2014 5:16 PM Results f or this EDT procedure are i n the results section. HEMOGLOBIN Routine 12/01/2014 5:15 PM Results f or this EDT procedure are i n the results section. POTASSIUM Routine 12/01/2014 5:15 PM Results f or this EDT procedure are i n the results section. EXTUBATE Routine 12/01/2014 3:05 PM EDT BLOOD GAS 2 ARTERIAL Routine 12/01/2014 2:59 PM R esults for this EDT procedure are i n the results section. XR CHEST ONE VIEW STAT 12/01/2014 1:34 PM Resu lts for this EDT procedure are i n the results section. BLOOD GAS 2 ARTERIAL Routine 12/01/2014 1:31 PM R esults for this EDT procedure are i n the results section. EKG 12-LEAD STAT 12/01/2014 1:10 PM Aortic stenosis Result s for this EDT procedure are i n the results section. SCAN, PERIPHERAL STAT 12/01/2014 12:00 Results for this BLOOD PM EDT procedure are i n the results section. HEMOGRAM STAT 12/01/2014 12:00 Results for this PM EDT procedure are i n the results section. DIFFERENTIAL, STAT 12/01/2014 12:00 Results fo r this AUTOMATED PM EDT procedure are i n the results section. APTT STAT 12/01/2014 12:00 Results for this PM EDT procedure are i n the results section. THROMBIN TIME STAT 12/01/2014 12:00 Results fo r this PM EDT procedure are i n the results section. PROTHROMBIN TIME STAT 12/01/2014 12:00 Results for this PM EDT procedure are i n the results section. FIBRINOGEN STAT 12/01/2014 12:00 Results for this PM EDT procedure are i n the results section. BLOOD GAS 2 ARTERIAL Routine 12/01/2014 11:54 Res ults for this AM EDT procedure are i n the results section. BLOOD GAS 2 ARTERIAL Routine 12/01/2014 11:30 Res ults for this AM EDT procedure are i n the results section. BLOOD GAS 2 ARTERIAL Routine 12/01/2014 10:58 Res ults for this AM EDT procedure are i n the results section. PREPARE PLATELETS, STAT 12/01/2014 10:45 Resul ts for this APHERESIS AM EDT procedure are i n the results section. PREPARE THAWED PLASMA STAT 12/01/2014 10:45 Re sults for this AM EDT procedure are i n the results section. BLOOD GAS 2 ARTERIAL Routine 12/01/2014 10:30 Res ults for this AM EDT procedure are i n the results section. FIBRINOGEN STAT 12/01/2014 10:30 Results for this AM EDT procedure are i n the results section. PLATELET COUNT STAT 12/01/2014 10:30 Results f or this AM EDT procedure are i n the results section. SPECIMEN TO PATHOLOGY Routine 12/01/2014 10:14 Re sults for this AM EDT procedure are i n the results section. BLOOD GAS 2 ARTERIAL Routine 12/01/2014 10:03 Res ults for this AM EDT procedure are i n the results section. BLOOD GAS 2 ARTERIAL Routine 12/01/2014 9:30 AM R esults for this EDT procedure are i n the results section. SURGICAL PATHOLOGY Routine 12/01/2014 8:56 AM Res ults for this REPORT EDT procedure are i n the results section. SPECIMEN TO PATHOLOGY Routine 12/01/2014 8:56 AM Results for this EDT procedure are i n the results section. BLOOD GAS 2 ARTERIAL Routine 12/01/2014 8:08 AM R esults for this EDT procedure are i n the results section. @ASCEND AORTA GRAFT, 12/01/2014 7:19 AM , dilated W\CPB, W\WO VALVE EDT ascending aorta SUSPEN; W\ AORTIC ROOT REPLCMNT (WRVU 58.79) @REPLACE AORTIC 12/01/2014 7:19 AM , dilated VALVE, OPEN, W\CPB, EDT ascending aorta W\PROSTHETIC VALVE (WRVU 41.32) PREPARE RBC STAT 12/01/2014 6:40 AM Results f or this EDT procedure are i n the results section. POCT GLUCOSE Routine 12/01/2014 6:22 AM Results f or this EDT procedure are i n the results section. @ASCEND AORTA GRAFT, Routine 12/01/2014 5:45 AM W\CPB, W\WO VALVE EDT SUSPEN W\AORTIC ROOT REPLCMNT documented in this encounter Results Echocardiogram Transthoracic(Leb) (01/16/2015 2:22 PM EDT) P athologist Signature EF 65 HEARTLAB SYSTEM Anatomical Region Laterality Modality Other Specimen (Source) Anatomical Location Collection Method / Collectio n Time Received Time / Laterality Volume 01/16/2015 Narrative 01/16/2015 3:27 PM EDT Procedure: ?Transthoracic Echocardiogram Patient: ?DYLAN NELSON ? (Age): 1950(64y) Med Rec#: ? [id number] ?Sex: ?M ? Site Loc: ? [facility] [place]Ht / Wt: ??170(cm)/92(kg) Pt. Loc: ?Echo Lab ?BSA: ?2.03 Study Date: ?? 01/16/2015 ?Pt. Type: Outpatient Tape: ? Referring: Eda Wilson Referring: Ye Galeas Reading: Caesar Silva ([id number]) Maintenance Pipefitter: Isabella Fierro BA, [facility] Diagnosis: *S/P heart valve replacement (V42.2) CPT Codes: *Echo Full (13789) *Spectral Doppler (44625) *Color Doppler (41805) BP: ? 125/81 SUMMARY: 1. There is normal global left ventricul ar systolic function. ??Ejection fraction is estimated to be 65%. There a re no left ventricular segmental wall motion abnormalities. Right ventric ular chamber size, wall thickness, and systolic function are wit hin normal limits. 2. Mild concentric left ventricular hype rtrophy is observed. Other chamber dimensions are normal. 3. There is an ascending aortic chaya in place. ??The #25 bio-prosthetic aortic valve was implanted on 12/01/2014 and appears well seated with normal function. ??The peak instantaneou s/ mean ??trans-valvular gradient across ??the aortic valve is 16 mmHg/ 9 mmHg. ??Other valve structures are normal. ?? 4. See remainder of report for additiona l findings. 5. The pericardium appears normal and th ere is no evidence of a pericardial effusion. Pulmonary artery h ypertension could not be assessed due to inadequate tricuspid reg urgitation jet. FINDINGS: ? Left Ventricle ?The left ventricular chamber size is normal. ?Mild concentric left ventricular h ypertrophy is observed. ?There is no evidence of LVOT obstr uction. ?There is normal global left ventri cular systolic function. ??Ejection fraction is estimated to be 65%. ?There are no left ventricular segm ental wall motion abnormalities. ?Left ventricular diastolic functio n is probably normal. Left Atrium ?The left atrium is normal in size. (31 ml/m2 by volume index) ?The left atrium is normal in size. Right Ventricle ?Right ventricular chamber size, wa ll thickness, and systolic function are within normal limits. ?Pulmonary artery hypertension coul d not be assessed due to inadequate tricuspid regurgitation jet. Aortic Valve ?The peak instantaneous trans-valvu lar gradient across ??the aortic valve is 16 mmHg. ?The mean trans-valvular gradient a cross ??the aortic valve is 9 mmHg. ?The size of the prosthetic aortic valve is 25mm. ?The prosthetic aortic valve was im planted on 12/01/2014. ?A bovine bio-prosthetic aortic jarrett ve is present. ?The bio-prosthetic aortic valve ap pears well seated with normal function. ?There is no prosthetic aortic valv e regurgitation present. Mitral Valve ?The mitral valve appears normal in structure and function. ?There is trace mitral regurgitatio n present. Tricuspid Valve ?The tricuspid valve appears normal in structure and function. ?There is no evidence of tricuspid valve regurgitation present. Pulmonic Valve ?The pulmonic valve is probably nor mal. Pericardium ?The pericardium appears normal and there is no evidence of a pericardial effusion. Aorta ?There is a graft in the ascending aorta. Pulmonary Artery ?The main pulmonary artery appears normal. Venous ?The inferior vena cava appears nor mal in size. ?There is a greater than 50% respir atory change in the inferior vena cava dimension. Misc ?See remainder of report for additi onal findings. ?Two-dimensional echo, spectral Dop pler and color Doppler performed. Chambers 2D ?Value ?Units (Range) ? IVSd (2D) ? 1.1 ?cm ? LVPWd (2D) ?1.2 ?cm ? IVS:LVPW ratio (2D) 0.9 ?ratio ? LVIDd (2D) ?4.2 ?cm ? LVIDs (2D) ?2.4 ?cm ? EF Teichholz (2D) ?? 74.5 ? % ? Ao root diameter (2D3 ?cm (2.1 - 3.6) ? Ascending Ao ?2.8 ?cm (2 - 3.5) ? Volumes/Mass ?Value ?Units (Range) ? LA Area 4 CH ?22.7 ? cm2 (<21) ? RA AREA 4CH ? 18.7 ? cm2 ? LA ESV SP 4CH (MOD) 52 ? ml ? LA ESV SP 2CH (MOD) 73 ? ml ? LA ESV BP (MOD) ? 62 ? ml ? LA ESV BP (MOD) inde30.5 ? ml/m2 ? Diastolic/Systolic Function ?Value ?Units (Range) ? MV E-wave Vmax ?0.9 ?m/sec ? MV deceleration [id number] ?msec ? MV A-wave Vmax ?0.6 ?m/sec ? MV E:A ratio ?1.6 ?ratio ? LV septal e' Vmax ?? 0.1 ?m/sec ? LV E:e' septal ratio12.1 ? ratio ? Aortic Valve ?Value ?Units (Range) ? AV Vmax ? 2 ?m/sec ? AV peak gradient ?16 ? mmHg ? AV mean gradient ?9 ?mmHg ? LVOT Vmax ? 1.1 ?m/sec ? LVOT peak gradient ??5 ?mmHg ? LVOT mean gradient ??3 ?mmHg ? Measurement Trending Name ? 01/16/2015 ? LVIDd (2D) ? 4. 15 LA ESV BP (MOD) ?62 LVIDs (2D) ? 2. 37 Wall Motion: Segment Name ?Rest ? Base-Anteroseptal ?? Normal ? Base-Anterior ? Normal ? Base-Anterolateral ??Normal ? Base-Posterolateral Normal ? Base-Inferior ? Normal ? Base-Inferoseptal ?? Normal ? Mid-Anteroseptal ?Normal ? Mid-Anterior ?Normal ? Mid-Anterolateral ?? Normal ? Mid-Posterolateral ??Normal ? Mid-Inferior ?Normal ? Mid-Inferoseptal ?Normal ? [place]-Septal ? Normal ? [place]-Anterior ? Normal ? [place]-Lateral ?Normal ? [place]-Inferior ? Normal ? [place]-Tip ?Normal ? This report has been electronically sign ed by: _ Caesar Henriquez. MD Ricardo ? 01/16/2015 15:26: 59 Images reviewed and interpretation verif ied [facility] Cardiac Ultrasound Laboratory Procedure Note Caesar Silva MD - 01/16/2015 Procedure: Transthoracic Echocardiogram Patient: DYLAN GILL(Age): [age]y) Med Rec#: [id number] Sex: M [place] Loc[place] [facility] [place]t / Wt: 170(cm)/92(kg) Pt. Loc: Echo Lab BSA: 2.03 Study Date: 01/16/2015 Pt. Type: Outpati ent Tape: Referring: Eda Wilson Referring: Ye Galeas Reading: Caesar Silva ([id number]) Maintenance Pipefitter: Isabella Fierro BA, [facility] Diagnosis: *S/P heart valve replacement (V42.2) CPT Codes: *Echo Full (39348) *Spectral Doppler (70783) *Color Doppler (80925) BP: 125/81 SUMMARY: 1. There is normal global left ventricul ar systolic function. Ejection fraction is estimated to be 65%. There a re no left ventricular segmental wall motion abnormalities. Right ventric ular chamber size, wall thickness, and systolic function are wit hin normal limits. 2. Mild concentric left ventricular hype rtrophy is observed. Other chamber dimensions are normal. 3. There is an ascending aortic chaya in place. The #25 bio-prosthetic aortic valve was implanted on 12/01/2014 and appears well seated with normal function. The peak instantaneous/ mean trans-valvular gradient across the aortic valve is 16 mmHg/ 9 mm Hg. Other valve structures are normal. 4. See remainder of report for additiona l findings. 5. The pericardium appears normal and th ere is no evidence of a pericardial effusion. Pulmonary artery h ypertension could not be assessed due to inadequate tricuspid reg urgitation jet. FINDINGS: Left Ventricle The left ventricular chamber size is no rmal. Mild concentric left ventricular hypert rophy is observed. There is no evidence of LVOT obstructio n. There is normal global left ventricular systolic function. Ejection fraction is estimated to be 65%. There are no left ventricular segmental wall motion abnormalities. Left ventricular diastolic function is probably normal. Left Atrium The left atrium is normal in size.(31 m l/m2 by volume index) The left atrium is normal in size. Right Ventricle Right ventricular chamber size, wall th ickness, and systolic function are within normal limits. Pulmonary artery hypertension could not be assessed due to inadequate tricuspid regurgitation jet. Aortic Valve The peak instantaneous trans-valvular g radient across the aortic valve is 16 mmHg. The mean trans-valvular gradient across the aortic valve is 9 mmHg. The size of the prosthetic aortic valve is 25mm. The prosthetic aortic valve was implant ed on 12/01/2014. A bovine bio-prosthetic aortic valve is present. The bio-prosthetic aortic valve appears well seated with normal function. There is no prosthetic aortic valve reg urgitation present. Mitral Valve The mitral valve appears normal in stru cture and function. There is trace mitral regurgitation pre sent. Tricuspid Valve The tricuspid valve appears normal in s tructure and function. There is no evidence of tricuspid valve regurgitation present. Pulmonic Valve The pulmonic valve is probably normal. Pericardium The pericardium appears normal and ther e is no evidence of a pericardial effusion. Aorta There is a graft in the ascending aorta . Pulmonary Artery The main pulmonary artery appears esthela l. Venous The inferior vena cava appears normal i n size. There is a greater than 50% respiratory change in the inferior vena cava dimension. Misc See remainder of report for additional findings. Two-dimensional echo, spectral Doppler and color Doppler performed. Chambers 2D Value Units (Range) IVSd (2D) 1.1 cm LVPWd (2D) 1.2 cm IVS:LVPW ratio (2D) 0.9 ratio LVIDd (2D) 4.2 cm LVIDs (2D) 2.4 cm EF Teichholz (2D) 74.5 % Ao root diameter (2D3 cm (2.1 - 3.6) Ascending Ao 2.8 cm (2 - 3.5) Volumes/Mass Value Units (Range) LA Area 4 CH 22.7 cm2 (<21) RA AREA 4CH 18.7 cm2 LA ESV SP 4CH (MOD) 52 ml LA ESV SP 2CH (MOD) 73 ml LA ESV BP (MOD) 62 ml LA ESV BP (MOD) inde30.5 ml/m2 Diastolic/Systolic Function Value Units (Range) MV E-wave Vmax 0.9 m/sec MV deceleration [id number] msec MV A-wave Vmax 0.6 m/sec MV E:A ratio 1.6 ratio LV septal e' Vmax 0.1 m/sec LV E:e' septal ratio12.1 ratio Aortic Valve Value Units (Range) AV Vmax 2 m/sec AV peak gradient 16 mmHg AV mean gradient 9 mmHg LVOT Vmax 1.1 m/sec LVOT peak gradient 5 mmHg LVOT mean gradient 3 mmHg Measurement Trending Name 01/16/2015 LVIDd (2D) 4.15 LA ESV BP (MOD) 62 LVIDs (2D) 2.37 Wall Motion: Segment Name Rest Base-Anteroseptal Normal Base-Anterior Normal Base-Anterolateral Normal Base-Posterolateral Normal Base-Inferior Normal Base-Inferoseptal Normal Mid-Anteroseptal Normal Mid-Anterior Normal Mid-Anterolateral Normal Mid-Posterolateral Normal Mid-Inferior Normal Mid-Inferoseptal Normal [place]-Septal Normal [place]-Anterior Normal [place]-Lateral Normal [place]-Inferior Normal [place]-Tip Normal This report has been electronically sign ed by: _ Caesar Silva MD 01/16/2015 15:26:59 Images reviewed and interpretation verif ied [facility] Cardiac Ultrasound Laboratory Ye Galeas MD ECHO ORDERABLES XR chest routine PA & lateral (01/16/2015 [...] and resolution of sma ll pleural effusions. Ye Galeas MD IMG DX ORDERABLES SCAN DOC: IMPLANTABLE DEVICES (12/06/2014 12:00 AM EDT) Narrative This result has an attachment that is no t available. Scanning Provider MEDIA MGR SCAN EXT ORDR/RSLT SCAN DOC: LAB (12/06/2014 12:00 AM EDT) Narrative This result has an attachment that is no t available. Scanning Provider MEDIA MGR SCAN EXT ORDR/RSLT SCAN DOC: CONTRACT TECHNICIAN (12/06/2014 12:00 AM EDT) Anatomical Region Laterality Modality Other Narrative This result has an attachment that is no t available. Scanning Provider MEDIA MGR SCAN EXT ORDR/RSLT Potassium (12/05/2014 7:06 AM EDT) athologist Signature Potassium 3.8 3.5 - 5.0 CERNER mmol/L [facility] Comment: Please note: ??Patients with WBC >100,00 0 may have falsely elevated Potassium levels. ??For accurate Potassium quantif ication in these patients send serum separator tube (gold top) for subsequent determinations. ??Contact the Clinical Chemistry Laboratory if there are any qu estions. Specimen Anatomical Collection Method Collection Time Receive d Time (Source) Location / / Volume Laterality Blood specimen 12/05/2014 7:06 AM 015 7:47 (specimen) EDT AM EDT Resulting Agency Comment Spec In Lab Ye Galeas MD CHEMISTRY ORDERABLES Performing Organization Address City/State/ZIP [place] [address] iPlingIUM XR chest routine PA & lateral (12/04/2014 8:45 AM EDT) Anatomical Region Laterality Modality Chest N/A Radiographic Imaging Specimen (Source) Anatomical Collection Method Collection Time Re ceived Time Location / / Volume Laterality 12/04/2014 8:45 AM EDT Impressions 12/04/2014 9:10 AM EDT IMPRESSION: 1. Small bilateral pleural effusions. No pneumothorax. 2. No evidence of active pulmonary edema . 3. Probable subsegmental atelectasis at the left lung base. Narrative 12/04/2014 9:10 AM EDT EXAMINATION: CHEST ROUTINE 2 VIEWS CLINICAL HISTORY: s/p avr, ao replacemen t TECHNIQUE: PA and lateral chest x-ray COMPARISON: 11/14/2014, 12/01/2014 FINDINGS: Removal of the endotracheal tube and rig ht IJ [place]-Sury catheter in catheter. Epicardial pacing leads are in place. No pneumothorax is seen. There are small bilateral pleural effusions with bluntin g costophrenic angles. Linear opacity in the left lung base is compatible subsegm ental atelectasis. No evidence of active pulmonary edema. The cardiomediastinal s ilhouette is unchanged. Median sternotomy wires and aortic valve prosth esis are seen. Procedure Note Omar Collins MD - 12/04/2014Formatti ng of this note might be different from the original. EXAMINATION: CHEST ROUTINE 2 VIEWS CLINICAL HISTORY: s/p avr, ao replacemen t TECHNIQUE: PA and lateral chest x-ray COMPARISON: 11/14/2014, 12/01/2014 FINDINGS: Removal of the endotracheal tube and rig ht IJ [place]-Sury catheter in catheter. Epicardial pacing leads are in place. No pneumothorax is seen. There are small bilateral pleural effusions with bluntin g costophrenic angles. Linear opacity in the left lung base is compatible subsegm ental atelectasis. No evidence of active pulmonary edema. The cardiomediastinal s ilhouette is unchanged. Median sternotomy wires and aortic valve prosth esis are seen. IMPRESSION IMPRESSION: 1. Small bilateral pleural effusions. No pneumothorax. 2. No evidence of active pulmonary edema . 3. Probable subsegmental atelectasis at the left lung base. Ye Galeas MD IMG DX ORDERABLES (ABNORMAL) Differential, Automated (12/04/2014 4:45 AM EDT) [facility] Method Time Signature Neutrophils % 77.3 % CERNER MILLENNIUM Neutr Abs (ANC) 8.33 (H) 1.50 - CERNER 6.30 MILLENNIUM x10(3)/mc L Lymphocytes % 14.3 % CERNER MILLENNIUM Lymphocytes Abs 1.5 1.0 - 3.6 CERNER x10(3)/mc MILLENNIUM L Monocytes % 7.6 % CERNER MILLENNIUM Monocyte Abs 0.8 0.2 - 1.0 CERNER x10(3)/mc MILLENNIUM L Eosinophils % 0.5 % CERNER MILLENNIUM Eosinophils Abs 0.0 0.0 - 0.5 CERNER x10(3)/mc MILLENNIUM L Basophils % 0.2 % CERNER MILLENNIUM Basophils Abs 0.0 0.0 - 0.2 CERNER x10(3)/mc MILLENNIUM L Immature Gran % 0.10 % CERNER MILLENNIUM Comment: Immature granulocytes(IG's)percentage an d absolute count will include metamyelocytes, myelocytes, and promyelo cytes. Blood smears from CBCs yielding IG's will be scanned manually for concor dance. If this scan disagrees with the automated IG or if promyelocytes are not ed, a manual differential will be performed. Nicci Gran Abs 0.01 0.00 - 0.05 x10(3)/mcL CER NER MILLENNIUM Specimen Anatomical Collection Method Collection Time Receive d Time (Source) Location / / Volume Laterality Blood specimen 12/04/2014 4:45 AM 015 5:25 (specimen) EDT AM EDT Resulting Agency Comment Spec In Lab Ye Galeas MD HEMATOLOGY ORDERABLES Performing Organization Address City/State/[place] [address] CERNER MILLENNIUM (ABNORMAL) Hemogram (12/04/2014 4:45 AM EDT) athologist Signature WBC 10.8 (H) 4.0 - 10.0 CERNER x10(3)/mcL MILLENNIUM RBC 4.23 (L) 4.63 - CERNER 6.08 MILLENNIUM x10(6)/mcL Hemoglobin 12.3 (L) 13.7 - CERNER 17.5 gm/dL MILLENNIUM Hematocrit 36.7 (L) 40.0 - CERNER 51.0 % MILLENNIUM MCV 86.8 79.0 - CERNER 92.0 fL MILLENNIUM MCH 29.1 25.6 - CERNER 32.2 pg MILLENNIUM MCHC 33.5 32.0 - CERNER 36.5 gm/dL MILLENNIUM Platelets 128 (L) 145 - 370 CERNER x10(3)/mcL MILLENNIUM RDWSD 43.3 35.0 - CERNER 46.0 fL MILLENNIUM RDWCV 13.6 10.9 - CERNER 14.4 % MILLENNIUM MPV 11.2 9.0 - 12.0 CERNER fL MILLENNIUM Specimen Anatomical Collection Method Collection Time Receive d Time (Source) Location / / Volume Laterality Blood specimen 12/04/2014 4:45 AM 015 5:25 (specimen) EDT AM EDT Resulting Agency Comment Spec In Lab Ye Galeas MD HEMATOLOGY ORDERABLES Performing Organization Address City/State/[place] [address] CERNER MILLENNIUM Basic Metabolic Panel (non-fasting) (12/04/2014 4:45 AM EDT) athologist Signature Glucose Lvl 103 60 - 199 CERNER mg/dL MILLENNIUM Comment: Diabetes: >=200 mg/dL plus symp toms BUN 12 10 - 20 mg/dL CERNER MILLENNIU M Creatinine 1.03 0.80 - 1.50 mg/dL CERNER MILL ENNIUM Comment: Please note that the pediatric reference intervals supplied above were not validated at [facility] Results from pediatri c patients should be interpreted in conjunction to the patient's age, height and muscle mass. Sodium 140 135 - 145 mmol/L CERNER MICHEL NIUM Potassium 3.7 3.5 - 5.0 mmol/L CERNER MICHEL NIUM Comment: Please note: ??Patients with WBC >100,00 0 may have falsely elevated Potassium levels. ??For accurate Potassium quantif ication in these patients send serum separator tube (gold top) for subsequent determinations. ??Contact the Clinical Chemistry Laboratory if there are any qu estions. Chloride 102 98 - 107 mmol/L CERNER MILLENN IUM CO2 27 22 - 31 mmol/L CERNER MILLENNI UM Anion Gap 11 5 - 15 mmol/L CERNER MILLENNIU M Calcium 8.6 8.5 - 10.5 mg/dL CERNER MICHEL NIUM Estimated GFR >60 >=60 CERNER MILLENNIU M Comment: This estimated GFR (eGFR) value was [...] the following links into your internet browser. [email or web address] Specimen Anatomical Collection Method Collection Time Receive d Time (Source) Location / / Volume Laterality Blood specimen 12/04/2014 4:45 AM 015 5:25 (specimen) EDT AM EDT Resulting Agency Comment Spec In Lab Ye Galeas MD CHEMISTRY ORDERABLES Performing Organization Address City/State/ZIP Code Phon e Number [place] [phone] CERNER MILLENNIUM Potassium (12/03/2014 6:10 AM EDT) P athologist Signature Potassium 4.0 3.5 - 5.0 CERNER mmol/L MILLENNIUM Comment: Please note: ??Patients with WBC >100,00 0 may have falsely elevated Potassium levels. ??For accurate Potassium quantif ication in these patients send serum separator tube (gold top) for subsequent determinations. ??Contact the Clinical Chemistry Laboratory if there are any qu estions. Specimen Anatomical Collection Method Collection Time Receive d Time (Source) Location / / Volume Laterality Blood specimen 12/03/2014 6:10 AM 015 6:40 (specimen) EDT AM EDT Resulting Agency Comment Spec In Lab Ye Galeas MD CHEMISTRY ORDERABLES Performing Organization Address City/State/ZIP Code Phon e Number [address] CERNER MILLENNIUM POCT Glucose (12/02/2014 8:31 PM EDT) athologist Signature POC Glucose 127 60 - 199 CERNER mg/dL MILLENNIUM Comment: Supplemental ranges: <140 mg/dL before meals <180 mg/dL all other times of the day Specimen Anatomical Collection Method Collection Time Receive d Time (Source) Location / / Volume Laterality Blood specimen 12/02/2014 8:31 PM 015 8:31 (specimen) EDT PM EDT Ye Galeas MD POINT OF CARE TEST ORDERABLE S Performing Organization Address City/[facility]/ZIP Code Phon e Number [address] CERNER MILLENNIUM POCT Glucose (12/02/2014 4:08 PM EDT) athologist Signature POC Glucose 88 60 - 199 CERNER mg/dL MILLENNIUM Comment: Supplemental ranges: <140 mg/dL before meals <180 mg/dL all other times of the day Specimen Anatomical Collection Method Collection Time Receive d Time (Source) Location / / Volume Laterality Blood specimen 12/02/2014 4:08 PM 015 4:08 (specimen) EDT PM EDT Ye Galeas MD POINT OF CARE TEST ORDERABLE S Performing Organization Address City/State/ZIP Code Phon e Number [address] CERNER MILLENNIUM POCT Glucose (12/02/2014 2:14 PM EDT) athologist Signature POC Glucose 98 60 - 199 CERNER mg/dL MILLENNIUM Comment: Supplemental ranges: <140 mg/dL before meals <180 mg/dL all other times of the day Specimen Anatomical Collection Method Collection Time Receive d Time (Source) Location / / Volume Laterality Blood specimen 12/02/2014 2:14 PM 015 2:14 (specimen) EDT PM EDT Ye Galeas MD POINT OF CARE TEST ORDERABLE S Performing Organization Address City/State/ZIP Code Phon e Number [address] CERNER MILLENNIUM POCT Glucose (12/02/2014 12:46 PM EDT) P athologist Signature POC Glucose 102 60 - 199 CERNER mg/dL MILLENNIUM Comment: Supplemental ranges: <140 mg/dL before meals <180 mg/dL all other times of the day Specimen Anatomical Collection Method Collection Time Receive d Time (Source) Location / / Volume Laterality Blood specimen 12/02/2014 12:46 201 5 (specimen) PM EDT 12:46 PM EDT Ye Galeas MD POINT OF CARE TEST ORDERABLE S Performing Organization Address City/State/ZIP Code Phon e Number [address] CERNER MILLENNIUM POCT Glucose (12/02/2014 10:17 AM EDT) P athologist Signature POC Glucose 104 60 - 199 CERNER mg/dL ENNIUM Comment: Supplemental ranges: <140 mg/dL before meals <180 mg/dL all other times of the day Specimen Anatomical Collection Method Collection Time Receive d Time (Source) Location / / Volume Laterality Blood specimen 12/02/2014 10:17 201 5 (specimen) AM EDT 10:17 AM EDT Ye Galeas MD POINT OF CARE TEST ORDERABLE S Performing Organization Address City/State/ZIP Code Phon e Number [address] CERNER MILLENNIUM POCT Glucose (12/02/2014 8:22 AM EDT) P athologist Signature POC Glucose 111 60 - 199 CERNER mg/dL MILLENNIUM Comment: Supplemental ranges: <140 mg/dL before meals <180 mg/dL all other times of the day Specimen Anatomical Collection Method Collection Time Receive d Time (Source) Location / / Volume Laterality Blood specimen 12/02/2014 8:22 AM 015 8:22 (specimen) EDT AM EDT Ye Galeas MD POINT OF CARE TEST ORDERABLE S Performing Organization Address City/State/Z[place] [address] CERNER MILLENNIUM POCT Glucose (12/02/2014 6:52 AM EDT) P athologist Signature POC Glucose 127 60 - 199 CERNER mg/dL MILLENNIUM Comment: Supplemental ranges: <140 mg/dL before meals <180 mg/dL all other times of the day Specimen Anatomical Collection Method Collection Time Receive d Time (Source) Location / / Volume Laterality Blood specimen 12/02/2014 6:52 AM 015 6:52 (specimen) EDT AM EDT Ye Galeas MD POINT OF CARE TEST ORDERABLE S Performing Organization Address City/State/ZIP Code Phon e Number [address] CERNER MILLENNIUM (ABNORMAL) Differential, Automated (12/02/2014 2:00 AM EDT) Patholo gist Method Time Signature Neutrophils % 90.0 % CERNER MILLENNIUM Neutr Abs (ANC) 13.17 (H) 1.50 - CERNER 6.30 MILLENNIUM x10(3)/mc L Lymphocytes % 3.4 % CERNER MILLENNIUM Lymphocytes Abs 0.5 (L) 1.0 - 3.6 CERNER x10(3)/mc MILLENNIUM L Monocytes % 6.5 % CERNER MILLENNIUM Monocyte Abs 1.0 0.2 - 1.0 CERNER x10(3)/mc MILLENNIUM L Eosinophils % 0.0 % CERNER MILLENNIUM Eosinophils Abs 0.0 0.0 - 0.5 CERNER x10(3)/mc MILLENNIUM L Basophils % 0.0 % CERNER MILLENNIUM Basophils Abs 0.0 0.0 - 0.2 CERNER x10(3)/mc MILLENNIUM L Immature Gran % 0.10 % CERNER MILLENNIUM Comment: Immature granulocytes(IG's)percentage an d absolute count will include metamyelocytes, myelocytes, and promyelo cytes. Blood smears from CBCs yielding IG's will be scanned manually for concor dance. If this scan disagrees with the automated IG or if promyelocytes are not ed, a manual differential will be performed. Nicci Gran Abs 0.02 0.00 - 0.05 x10(3)/mcL CER NER MILLENNIUM Specimen Anatomical Collection Method Collection Time Receive d Time (Source) Location / / Volume Laterality Blood specimen 12/02/2014 2:00 AM 015 2:09 (specimen) EDT AM EDT Resulting Agency Comment Spec In Lab Ye Galeas MD HEMATOLOGY ORDERABLES Performing Organization Address City/State/ZIP Code Phon e Number [place] [phone] CERNER MILLENNIUM (ABNORMAL) Hemogram (12/02/2014 2:00 AM EDT) P athologist Signature WBC 14.6 (H) 4.0 - 10.0 CERNER x10(3)/mcL MILLENNIUM RBC 4.12 (L) 4.63 - CERNER 6.08 MILLENNIUM x10(6)/mcL Hemoglobin 11.8 (L) 13.7 - CERNER 17.5 gm/dL MILLENNIUM Hematocrit 35.8 (L) 40.0 - CERNER 51.0 % MILLENNIUM MCV 86.9 79.0 - CERNER 92.0 fL MILLENNIUM MCH 28.6 25.6 - CERNER 32.2 pg MILLENNIUM MCHC 33.0 32.0 - CERNER 36.5 gm/dL MILLENNIUM Platelets 117 (L) 145 - 370 CERNER x10(3)/mcL MILLENNIUM RDWSD 43.6 35.0 - CERNER 46.0 fL MILLENNIUM RDWCV 13.8 10.9 - CERNER 14.4 % MILLENNIUM MPV 11.0 9.0 - 12.0 CERNER fL MILLENNIUM Specimen Anatomical Collection Method Collection Time Receive d Time (Source) Location / / Volume Laterality Blood specimen 12/02/2014 2:00 AM 015 2:09 (specimen) EDT AM EDT Resulting Agency Comment Spec In Lab Ye Galeas MD HEMATOLOGY ORDERABLES Performing Organization Address City/[facility]/ZIP [place] [address] CERNER MILLENNIUM (ABNORMAL) Cardiac Enzymes (12/02/2014 2:00 AM EDT) P athologist Signature Troponin-T 0.72 (H) <=0.03 CERNER ng/mL MILLENNIUM Comment: 0.03 ng/mL: Represents the 99th percenti le upper reference limit for normals. >0.03 ng/mL: Elevated cardiac troponin T level indicative of myocardial damage. Diagnosis of acute, evolving or recent M I requires a typical rise and gradual fall of cTnT with at least ONE of the fo llowing: a) Ischemic symptoms b) Development of pathologic Q waves on the ECG c) ECG changes indicative of eschemia (S -T segment elevation/depression) d) Coronary artery intervention Serial bloods should be obtained for darvin ting on admission, at 6 to 9 hrs and again at 12 to 24 hrs if earlier samples are negative and the clinical index of suspicion is high. Reference: [Myocardial infarction redefined? a consensus document of the Joint Society of Cardiology/[place] [employer] Committee for the redefinition of myocardial infarction. ? ?Journal of the [place] [employer] 2000; 36: 959-969] CK, Total 402 (H) 0 - 200 unit/L CERNER MILLENNI UM Specimen Anatomical Collection Method Collection Time Receive d Time (Source) Location / / Volume Laterality Blood specimen 12/02/2014 2:00 AM 015 2:09 (specimen) EDT AM EDT Resulting Agency Comment Spec In Lab Ye Galeas MD CHEMISTRY ORDERABLES Performing Organization Address City/State/ZIP Code Phon [place] Number [place] [address] CERNER MILLENNIUM Potassium (12/02/2014 2:00 AM EDT) P athologist Signature Potassium 4.2 3.5 - 5.0 CERNER mmol/L [facility] Comment: Please note: ??Patients with WBC >100,00 0 may have falsely elevated Potassium levels. ??For accurate Potassium quantif ication in these patients send serum separator tube (gold top) for subsequent determinations. ??Contact the Clinical Chemistry Laboratory if there are any qu estions. Specimen Anatomical Collection Method Collection Time Receive d Time (Source) Location / / Volume Laterality Blood specimen 12/02/2014 2:00 AM 015 2:09 (specimen) EDT AM EDT Resulting Agency Comment Spec In Lab Ye Galeas MD CHEMISTRY ORDERABLES Performing Organization Address [facility] Phon e Number [address] CERNER MILLENNIUM (ABNORMAL) Glucose, fasting (12/02/2014 2:00 AM EDT) athologist Signature Glucose 155 (H) 65 - 99 CERNER Fasting mg/dL [facility] Comment: ?Fasting* Glucose Interpretive C riteria Normal ?65-99 mg/dL Impaired Fasting glucose ?100-125 mg/dL Consistent with Diabetes Mellitus ? >or= 126 mg/dL *Fasting is defined as no caloric intake for at least 8 hours In the absence of unequivocal hypergly cemia a plasma glucose value of >or= 126 mg/dL should be repeated on a subseq u day. Diagnosis and Classification of Diabetes Mellitus, Position Statement from the [place] [employer]. ??Diabete s Care, Volume 33, Supplement 1, Aug 2009 Specimen Anatomical Collection Method Collection Time Receive d Time (Source) Location / / Volume Laterality Blood specimen 12/02/2014 2:00 AM 015 2:09 (specimen) EDT AM EDT Resulting Agency Comment Spec In Lab Ye Galeas MD CHEMISTRY ORDERABLES Performing Organization Address [facility] [place] [address] [facility] Creatinine (12/02/2014 2:00 AM EDT) athologist Signature Creatinine 1.12 0.80 - 1.50 CERNER mg/dL [facility] Comment: Please note that the pediatric reference intervals supplied above were not validated at [facility]. Results from pediatri c patients should be interpreted in conjunction to the patient's age, height and muscle mass. Estimated GFR >60 >=60 CERNER ANGELLAENNIU M Comment: This estimated GFR (eGFR) value was [...] the following links into your internet browser. [email or web address] Specimen Anatomical Collection Method Collection Time Receive d Time (Source) Location / / Volume Laterality Blood specimen 12/02/2014 2:00 AM 015 2:09 (specimen) EDT AM EDT Resulting Agency Comment Spec In Lab Ye Galeas MD CHEMISTRY ORDERABLES Performing Organization Address City/[facility] Phon e Number [address] CERBANNER MILLENNIUM BUN (12/02/2014 2:00 AM EDT) athologist Signature BUN 12 10 - 20 CERNER mg/dL [facility] Specimen Anatomical Collection Method Collection Time Receive d Time (Source) Location / / Volume Laterality Blood specimen 12/02/2014 2:00 AM 015 2:09 (specimen) EDT AM EDT Resulting Agency Comment Spec In Lab Ye Galeas MD CHEMISTRY ORDERABLES Performing Organization Address City/[facility] Phon e Number [address] [facility] POCT Glucose (12/02/2014 1:59 AM EDT) athologist Signature POC Glucose 136 60 - 199 CERNER mg/dL MILLENNIUM Comment: Supplemental ranges: <140 mg/dL before meals <180 mg/dL all other times of the day Specimen Anatomical Collection Method Collection Time Receive d Time (Source) Location / / Volume Laterality Blood specimen 12/02/2014 1:59 AM 015 1:59 (specimen) EDT AM EDT Ye Galeas MD POINT OF CARE TEST ORDERABLE S Performing Organization Address City/State/Z[place] [address] CERNER MILLENNIUM POCT Glucose (12/01/2014 10:26 PM EDT) athologist Signature POC Glucose 148 60 - 199 CERNER mg/dL MILLENNIUM Comment: Supplemental ranges: <140 mg/dL before meals <180 mg/dL all other times of the day Specimen Anatomical Collection Method Collection Time Receive d Time (Source) Location / / Volume Laterality Blood specimen 12/01/2014 10:26 5 (specimen) PM EDT 10:26 PM EDT Ye Galeas MD POINT OF CARE TEST ORDERABLE S Performing Organization Address City/State/ZIP Code Phon e Number [address] CERNER MILLENNIUM POCT Glucose (12/01/2014 8:08 PM EDT) athologist Signature POC Glucose 156 60 - 199 CERNER mg/dL MILLENNIUM Comment: Supplemental ranges: <140 mg/dL before meals <180 mg/dL all other times of the day Specimen Anatomical Collection Method Collection Time Receive d Time (Source) Location / / Volume Laterality Blood specimen 12/01/2014 8:08 PM 015 8:08 (specimen) EDT PM EDT Ye Galeas MD POINT OF CARE TEST ORDERABLE S Performing Organization Address City/State/Z[place] [address] CERNER MILLENNIUM POCT Glucose (12/01/2014 5:16 PM EDT) athologist Signature POC Glucose 158 60 - 199 CERNER mg/dL [facility] Comment: Supplemental ranges: <140 mg/dL before meals <180 mg/dL all other times of the day Specimen Anatomical Collection Method Collection Time Receive d Time (Source) Location / / Volume Laterality Blood specimen 12/01/2014 5:16 PM 015 5:16 (specimen) EDT PM EDT Ye Galeas MD POINT OF CARE TEST ORDERABLE S Performing Organization Address City/[facility]/Z[place] [address] CERNER MILLENNIUM (ABNORMAL) Hemoglobin (12/01/2014 5:15 PM EDT) athologist [facility] Hemoglobin 12.7 (L) 13.7 - CERNER 17.5 gm/dL [facility] Comment: Pt had procedure in OR. Specimen Anatomical Collection Method Collection Time Receive d Time (Source) Location / / Volume Laterality Blood specimen 12/01/2014 5:15 PM 015 5:28 (specimen) EDT PM EDT Resulting Agency Comment Spec In Lab Ye Galeas MD HEMATOLOGY ORDERABLES Performing Organization Address City/[facility]/Z[place] [address] CERNER MILLENNIUM Potassium (12/01/2014 5:15 PM EDT) athologist [facility] Potassium 4.2 3.5 - 5.0 CERNER mmol/L [facility] Comment: Please note: ??Patients with WBC >100,00 0 may have falsely elevated Potassium levels. ??For accurate Potassium quantif ication in these patients send serum separator tube (gold top) for subsequent determinations. ??Contact the Clinical Chemistry Laboratory if there are any qu estions. Specimen Anatomical Collection Method Collection Time Receive d Time (Source) Location / / Volume Laterality Blood specimen 12/01/2014 5:15 PM 015 5:28 (specimen) EDT PM EDT Resulting Agency Comment Spec In Lab Ye Galeas MD CHEMISTRY ORDERABLES Performing Organization Address City/[facility]/ZIP Code [place] [address] CERNER MILLENNIUM (ABNORMAL) BLOOD GAS 2 ARTERIAL (12/01/2014 2:59 PM EDT) Analysis Performed At Patho logist Time Signature pH Art 7.34 (L) CERNER MILLENNIUM pCO2 Art 42 mmHg CERNER MILLENNIUM pO2 Art 71 (L) mmHg CERNER MILLENNIUM HCO3 Art 22.0 mmol/L CERNER MILLENNIUM BE Art -3.7 (L) mmol/L CERNER MILLENNIUM Hgb Blood Gas 14.3 gm/dL CERNER MILLENNIUM O2HB Art 92.9 (L) % CERNER MILLENNIUM COHB Art 0.2 % CERNER MILLENNIUM Comment: Nonsmokers: 0.5-1.5% COHB Smokers: Variable, but usually less than 10% Toxic: 20-30% COHB Lethal: Greater than 60% COHB METHB Art 0.8 % CERNER MILLENNIUM Na Whole Blood 138 mmol/L CERNER MILLENNI UM K Whole Blood 3.4 (L) mmol/L CERNER MILLENNIU M Comment: Please note: Patients with WBC >100,000 may have falsely elevated Potassium levels. Contact the Clinical Chemistry L aboratory if there are any questions. ICa Whole Blood 1.13 (L) mmol/L CERNER MILLENN IUM Comment: Note: ??Total bilirubin higher than 20 m g/dL may lead to falsely low ionized calcium. CL Whole Blood 109 (H) mmol/L CERNER MILLENNI UM Gluc Whole Bld 151 mg/dL CERNER MILLENNI UM Comment: Diabetes: >=200 mg/dL plus symp toms. Lactate WB 2.0 mmol/L CERNER MILLENNIUM FIO2 Art 40 % CERNER MILLENNIUM PF Ratio Art 178 CERNER MILLENNIUM Specimen Anatomical Collection Method Collection Time Receive d Time (Source) Location / / Volume Laterality Blood specimen 12/01/2014 2:59 PM 015 2:59 (specimen) EDT PM EDT Ye Galeas MD CHEMISTRY ORDERABLES Performing Organization Address City/State/ZIP Code Phon e Number [place] [phone] CERNER MILLENNIUM XR chest PA or AP- 1 view (12/01/2014 1:34 PM EDT) Anatomical Region Laterality Modality Chest N/A Radiographic Imaging Specimen (Source) Anatomical Collection Method Collection Time Re ceived Time Location / / Volume Laterality 12/01/2014 1:34 PM EDT Narrative 12/01/2014 4:59 PM EDT EXAMINATION: CHEST ONE VIEW/XPORT CLINICAL HISTORY: s/p AVR TECHNIQUE: AP chest COMPARISON: None FINDINGS: Lines and tubes as below: 1. ??ET tube is seen with the tip projec ting approximately 5 cm above the level of the mike. 2. ??Two mediastinal drains are noted. 3. ??A right IJ PA catheter with the tip projecting at the expected location of the main pulmonary right pulmonary arter y junction. Intact median sternotomy wires and prosthetic aortic valve is not ed. Low lung volumes with crowding of the pu lmonary vasculature and basilar atelectasis. There is slight indistinctn ess of the pulmonary vascular markings and mild patchy opacity consistent with a mild pulmonary edema. No large pneumothorax, given limitations of supin e radiography. Slight blunting of the right costophrenic angle may represent s mall pleural effusion. 1. ??IMPRESSION: 2. ??Lines and tubes in satisfactory pos ition. 3. ??Mild pulmonary edema and bibasilar atelectasis. This report was reviewed by Mae vázquez at 12/01/2014 4:54 PM Film and interpretation reviewed by the attending Procedure Note Mae Ball MD - 12/01/2014Formatt ing of this note might be different from the original. EXAMINATION: CHEST ONE VIEW/XPORT CLINICAL HISTORY: s/p AVR TECHNIQUE: AP chest COMPARISON: None FINDINGS: Lines and tubes as below: 1. ET tube is seen with the tip projecti ng approximately 5 cm above the level of the mike. 2. Two mediastinal drains are noted. 3. A right IJ PA catheter with the tip p rojecting at the expected location of the main pulmonary right pulmonary arter y junction. Intact median sternotomy wires and prosthetic aortic valve is not ed. Low lung volumes with crowding of the pu lmonary vasculature and basilar atelectasis. There is slight indistinctn ess of the pulmonary vascular markings and mild patchy opacity consistent with a mild pulmonary edema. No large pneumothorax, given limitations of supin e radiography. Slight blunting of the right costophrenic angle may represent s mall pleural effusion. 1. IMPRESSION: 2. Lines and tubes in satisfactory posit ion. 3. Mild pulmonary edema and bibasilar at electasis. This report was reviewed by Mae vázquez at 12/01/2014 4:54 PM Film and interpretation reviewed by the attending Ye Galeas MD IMG DX ORDERABLES (ABNORMAL) BLOOD GAS 2 ARTERIAL (12/01/2014 1:31 PM EDT) Analysis Performed At Patho logist Time Signature pH Art 7.31 (L) CERNER MILLENNIUM pCO2 Art 46 (H) mmHg CERNER MILLENNIUM pO2 Art 328 (H) mmHg CERNER MILLENNIUM HCO3 Art 22.6 mmol/L CERNER MILLENNIUM BE Art -3.6 (L) mmol/L CERNER MILLENNIUM Hgb Blood Gas 13.4 (L) gm/dL CERNER MILLENNIUM O2HB Art 97.9 (H) % CERNER MILLENNIUM COHB Art 0.2 % CERNER MILLENNIUM Comment: Nonsmokers: 0.5-1.5% COHB Smokers: Variable, but usually less than 10% Toxic: 20-30% COHB Lethal: Greater than 60% COHB METHB Art 1.0 % CERNER MILLENNIUM Na Whole Blood 136 mmol/L CERNER MILLENNI UM K Whole Blood 3.8 mmol/L CERNER MILLENNIU M Comment: Please note: Patients with WBC >100,000 may have falsely elevated Potassium levels. Contact the Clinical Chemistry L aboratory if there are any questions. ICa Whole Blood 1.15 (L) mmol/L CERNER MILLENN IUM Comment: Note: ??Total bilirubin higher than 20 m g/dL may lead to falsely low ionized calcium. CL Whole Blood 108 (H) mmol/L CERNER MILLENNI UM Gluc Whole Bld 123 mg/dL CERNER MILLENNI UM Comment: Diabetes: >=200 mg/dL plus symp toms. Lactate WB 1.8 mmol/L CERNER MILLENNIUM FIO2 Art 100 % CERNER MILLENNIUM PF Ratio Art 328 CERNER MILLENNIUM Specimen Anatomical Collection Method Collection Time Receive d Time (Source) Location / / Volume Laterality Blood specimen 12/01/2014 1:31 PM 015 1:31 (specimen) EDT PM EDT Ye Galeas MD CHEMISTRY ORDERABLES Performing Organization Address City/State/ZIP Code Phon e Number [place] [phone] [facility] EKG 12 Lead (12/01/2014 1:10 PM EDT) Component Value Ref Range Test Analysis Performed Pathologis t Method Time At Signature Ventricular rate 74 BPM MUSE SYSTEM Atrial Rate 74 BPM MUSE SYSTEM P-R Interval 196 ms MUSE SYSTEM QRS Duration 108 ms MUSE SYSTEM Q-T Interval 442 ms MUSE SYSTEM QTC Calculated 490 ms MUSE SYSTEM (Bezet) Calculated P [place] 38 degrees MUSE SYSTEM Calculated R [place] 22 degrees MUSE SYSTEM Calculated T [place] 66 degrees MUSE SYSTEM INTERPRETATION Normal sinus rhythm MUSE SYSTEM Nonspecific T wave abnormality When compared with ECG of 14-NOV-2014 11:56, QT has lengthened Confirmed by MD Juan, [facility] ([id number]) on 12/01/2014 8 :27:03 PM Specimen Anatomical Collection Method Collection Time Receive d Time (Source) Location / / Volume Laterality 12/01/2014 1:10 PM 5 8:27 EDT PM EDT Ye Galeas MD ECG ORDERABLES Performing Organization Address City/State/ZIP Code Phon e Number MUSE SYSTEM Scan, Peripheral Blood (12/01/2014 12:00 PM EDT) Patholo gist Method Time Signature Plat Estimate Decreased [facility] RBC Morphology Normal [facility] Specimen Anatomical Collection Method Collection Time Receive d Time (Source) Location / / Volume Laterality Blood specimen Venous Draw / 12/01/2014 12:00 12/02/19 15 (specimen) Unknown PM EDT 12:07 PM EDT Resulting Agency Comment Spec In Lab Ye Galeas MD HEMATOLOGY ORDERABLES Performing Organization Address City/State/ZIP Code Phon e Number [place] [phone] [facility] Thrombin time (12/01/2014 12:00 PM EDT) P athologist Signature Thrombin Time 18 15 - 20 CERNER sec [facility] Specimen Anatomical Collection Method Collection Time Receive d Time (Source) Location / / Volume Laterality Blood specimen Venous Draw / 12/01/2014 12:00 12/02/19 15 (specimen) Unknown PM EDT 12:07 PM EDT Resulting Agency Comment Spec In Lab Ye Galeas MD HEMATOLOGY ORDERABLES Performing Organization Address City/[facility]/Z[place] [address] CERNER MILLENNIUM (ABNORMAL) Fibrinogen (12/01/2014 12:00 PM EDT) P athologist Signature Fibrinogen 167 (L) 175 - 450 CERNER mg/dL MILLENNIUM Comment: Called by: INA, Read back by: ANDI COLLADO_, Date/Time:12/01/14 12:22_. Specimen Anatomical Collection Method Collection Time Receive d Time (Source) Location / / Volume Laterality Blood specimen Venous Draw / 12/01/2014 12:00 12/02/19 15 (specimen) Unknown PM EDT 12:07 PM EDT Resulting Agency Comment Spec In Lab Ye Galeas MD HEMATOLOGY ORDERABLES Performing Organization Address City/[facility]/[place] [address] CERNER MILLENNIUM APTT (12/01/2014 12:00 PM EDT) P athologist Signature PTT 33 25 - 35 sec CERNER MILLENNIUM Comment: Recommended therapeutic PTT range for fu ll dose unfractionated heparin is 80-114 seconds. Specimen Anatomical Collection Method Collection Time Receive d Time (Source) Location / / Volume Laterality Blood specimen Venous Draw / 12/01/2014 12:00 12/02/19 15 (specimen) Unknown PM EDT 12:07 PM EDT Resulting Agency Comment Spec In Lab Ye Galeas MD HEMATOLOGY ORDERABLES Performing Organization Address City/[facility]/[place] [address] CERNER MILLENNIUM (ABNORMAL) Prothrombin Time (12/01/2014 12:00 PM EDT) P athologist Signature PT 20.1 (H) 12.5 - 15.5 CERNER sec MILLENNIUM Comment: Transfusion Committee Guidelines: INR less than 2.0, PTT less than OR equal to 43.5 seconds, or Fibrinogen greater t arvizu or equal to 100 mg/dl indicate adequate procoagulant activity for hemos tasis in patients without underlying bleeding disorders. INR 1.6 (H) 0.9 - 1.1 CERNER MILLENNIUM Specimen Anatomical Collection Method Collection Time Receive d Time (Source) Location / / Volume Laterality Blood specimen Venous Draw / 12/01/2014 12:00 12/02/19 15 (specimen) Unknown PM EDT 12:07 PM EDT Resulting Agency Comment Spec In Lab Ye Galeas MD HEMATOLOGY ORDERABLES Performing Organization Address City/State/Z[place] [address] CERNER MILLENNIUM (ABNORMAL) Differential, Automated (12/01/2014 12:00 PM EDT) [facility] Method Time Signature Neutrophils % 88.6 % CERNER MILLENNIUM Neutr Abs (ANC) 12.22 (H) 1.50 - CERNER 6.30 MILLENNIUM x10(3)/mc L Lymphocytes % 9.6 % CERNER MILLENNIUM Lymphocytes Abs 1.3 1.0 - 3.6 CERNER x10(3)/mc MILLENNIUM L Monocytes % 0.9 % CERNER MILLENNIUM Monocyte Abs 0.1 (L) 0.2 - 1.0 CERNER x10(3)/mc MILLENNIUM L Eosinophils % 0.3 % CERNER MILLENNIUM Eosinophils Abs 0.0 0.0 - 0.5 CERNER x10(3)/mc MILLENNIUM L Basophils % 0.1 % CERNER MILLENNIUM Basophils Abs 0.0 0.0 - 0.2 CERNER x10(3)/mc MILLENNIUM L Immature Gran % 0.50 % CERNER MILLENNIUM Comment: Immature granulocytes(IG's)percentage an d absolute count will include metamyelocytes, myelocytes, and promyelo cytes. Blood smears from CBCs yielding IG's will be scanned manually for concor dance. If this scan disagrees with the automated IG or if promyelocytes are not ed, a manual differential will be performed. Nicci Gran Abs 0.07 (H) 0.00 - 0.05 x10(3)/mcL CER NER MILLENNIUM Specimen Anatomical Collection Method Collection Time Receive d Time (Source) Location / / Volume Laterality Blood specimen Venous Draw / 12/01/2014 12:00 12/02/19 15 (specimen) Unknown PM EDT 12:07 PM EDT Resulting Agency Comment Spec In Lab Ye Galeas MD HEMATOLOGY ORDERABLES Performing Organization Address City/State/Z[place] [address] CERNER MILLENNIUM (ABNORMAL) Hemogram (12/01/2014 12:00 PM EDT) P athologist Signature WBC 13.8 (H) 4.0 - 10.0 CERNER x10(3)/mcL MILLENNIUM Comment: Called by: LANCE, Read back by: ANDI GALLOWAY 8 Date-Time: 12-01-14 1223 RBC 3.55 (L) 4.63 - 6.08 x10(6)/mcL CERNER MILLENNIUM Hemoglobin 10.3 (L) 13.7 - 17.5 gm/dL CERNER MILL ENNIUM Hematocrit 30.5 (L) 40.0 - 51.0 % CERNER MILLENNI UM MCV 85.9 79.0 - 92.0 fL CERNER MILLENNI UM MCH 29.0 25.6 - 32.2 pg CERNER MILLENNI UM MCHC 33.8 32.0 - 36.5 gm/dL CERNER MILLE NNIUM Platelets 102 (L) 145 - 370 x10(3)/mcL CERNER [place] L[place]NIUM RDWSD 42.5 35.0 - 46.0 fL CERNER MILLENNI UM RDWCV 13.5 10.9 - 14.4 % CERNER MILLENNIU M MPV 10.3 9.0 - 12.0 fL CERNER MILLENNIU M Specimen Anatomical Collection Method Collection Time Receive d Time (Source) Location / / Volume Laterality Blood specimen Venous Draw / 12/01/2014 12:00 12/02/19 15 (specimen) Unknown PM EDT 12:07 PM EDT Resulting Agency Comment Spec In Lab Ye Galeas MD HEMATOLOGY ORDERABLES Performing Organization Address City/State/Z[place] [address] CERNER MILLENNIUM (ABNORMAL) BLOOD GAS 2 ARTERIAL (12/01/2014 11:54 AM EDT) Analysis Performed At [facility] Time Signature pH Art 7.36 CERNER MILLENNIUM pCO2 Art 43 mmHg CERNER MILLENNIUM pO2 Art 496 (H) mmHg CERNER MILLENNIUM HCO3 Art 23.7 mmol/L CERNER MILLENNIUM BE Art -1.8 mmol/L CERNER MILLENNIUM Hgb Blood Gas 10.6 (L) gm/dL CERNER MILLENNIUM O2HB Art 99.2 (H) % CERNER MILLENNIUM COHB Art 0.0 % CERNER MILLENNIUM Comment: Nonsmokers: 0.5-1.5% COHB Smokers: Variable, but usually less than 10% Toxic: 20-30% COHB Lethal: Greater than 60% COHB METHB Art 0.3 % CERNER MILLENNIUM Na Whole Blood 129 (L) mmol/L CERNER MILLENNI UM K Whole Blood 3.7 mmol/L CERNER MILLENNIU M Comment: Please note: Patients with WBC >100,000 may have falsely elevated Potassium levels. Contact the Clinical Chemistry L aboratory if there are any questions. ICa Whole Blood 1.16 mmol/L CERNER MILLENN IUM Comment: Note: ??Total bilirubin higher than 20 m g/dL may lead to falsely low ionized calcium. CL Whole Blood 104 mmol/L CERNER MILLENNI UM Gluc Whole Bld 209 (H) mg/dL CERNER MILLENNI UM Comment: Diabetes: >=200 mg/dL plus symp toms. Specimen Anatomical Collection Method Collection Time Receive d Time (Source) Location / / Volume Laterality Blood specimen 12/01/2014 11:54 5 (specimen) AM EDT 11:54 AM EDT Ye Galeas MD CHEMISTRY ORDERABLES Performing Organization Address City/State/Z[place] [address] CERNER MILLENNIUM (ABNORMAL) BLOOD GAS 2 ARTERIAL (12/01/2014 11:30 AM EDT) Analysis Performed At [facility] Time Signature pH Art 7.34 (L) CERNER MILLENNIUM pCO2 Art 41 mmHg CERNER MILLENNIUM pO2 Art 390 (H) mmHg CERNER MILLENNIUM HCO3 Art 21.4 mmol/L CERNER MILLENNIUM BE Art -4.5 (L) mmol/L CERNER MILLENNIUM Hgb Blood Gas 10.1 (L) gm/dL CERNER MILLENNIUM O2HB Art 98.5 (H) % CERNER MILLENNIUM COHB Art 0.3 % CERNER MILLENNIUM Comment: Nonsmokers: 0.5-1.5% COHB Smokers: Variable, but usually less than 10% Toxic: 20-30% COHB Lethal: Greater than 60% COHB METHB Art 0.4 % CERNER MILLENNIUM Na Whole Blood 126 (L) mmol/L CERNER MILLENNI UM K Whole Blood 4.0 mmol/L CERNER MILLENNIU M Comment: Please note: Patients with WBC >100,000 may have falsely elevated Potassium levels. Contact the Clinical Chemistry L aboratory if there are any questions. ICa Whole Blood 1.31 mmol/L CERNER MILLENN IUM Comment: Note: ??Total bilirubin higher than 20 m g/dL may lead to falsely low ionized calcium. CL Whole Blood 101 mmol/L CERNER MILLENNI UM Gluc Whole Bld 255 (H) mg/dL CERNER MILLENNI UM Comment: Diabetes: >=200 mg/dL plus symp toms. Specimen Anatomical Collection Method Collection Time Receive d Time (Source) Location / / Volume Laterality Blood specimen 12/01/2014 11:30 5 (specimen) AM EDT 11:30 AM EDT Ye Galeas MD CHEMISTRY ORDERABLES Performing Organization Address City/State/Z[place] [address] CERNER MILLENNIUM (ABNORMAL) BLOOD GAS 2 ARTERIAL (12/01/2014 10:58 AM EDT) Analysis Performed At Patho logist Time Signature pH Art 7.30 (L) CERNER MILLENNIUM pCO2 Art 49 (H) mmHg CERNER MILLENNIUM pO2 Art 396 (H) mmHg CERNER MILLENNIUM HCO3 Art 23.6 mmol/L CERNER MILLENNIUM BE Art -2.8 mmol/L CERNER MILLENNIUM Hgb Blood Gas 10.7 (L) gm/dL CERNER MILLENNIUM O2HB Art 98.9 (H) % CERNER MILLENNIUM COHB Art 0.1 % CERNER MILLENNIUM Comment: Nonsmokers: 0.5-1.5% COHB Smokers: Variable, but usually less than 10% Toxic: 20-30% COHB Lethal: Greater than 60% COHB METHB Art 0.5 % CERNER MILLENNIUM Na Whole Blood 130 (L) mmol/L CERNER MILLENNI UM K Whole Blood 4.4 mmol/L CERNER MILLENNIU M Comment: Please note: Patients with WBC >100,000 may have falsely elevated Potassium levels. Contact the Clinical Chemistry L aboratory if there are any questions. ICa Whole Blood 0.97 (L) mmol/L CERNER MILLENN IUM Comment: Note: ??Total bilirubin higher than 20 m g/dL may lead to falsely low ionized calcium. CL Whole Blood 102 mmol/L CERNER MILLENNI UM Gluc Whole Bld 229 (H) mg/dL CERNER MILLENNI UM Comment: Diabetes: >=200 mg/dL plus symp toms. Specimen Anatomical Collection Method Collection Time Receive d Time (Source) Location / / Volume Laterality Blood specimen 12/01/2014 10:58 5 (specimen) AM EDT 10:58 AM EDT Ye Galeas MD CHEMISTRY ORDERABLES Performing Organization Address City/[facility] [place] [address] [facility] MILLENNIUM Prepare thawed plasma (12/01/2014 10:45 AM EDT) athologist Signature Dispensed? Yes [facility] Specimen Anatomical Collection Method Collection Time Receive d Time (Source) Location / / Volume Laterality Blood specimen 12/01/2014 10:45 5 (specimen) AM EDT 11:23 AM EDT Ye Galeas MD BLOOD BANK ORDERABLES Performing Organization Address City/[facility] [place] [address] [facility] MILLENNIUM Prepare Platelets, Apheresis (12/01/2014 10:45 AM EDT) P athologist Signature Dispensed? Yes CERNER MILLENNIUM Specimen Anatomical Collection Method Collection Time Receive d Time (Source) Location / / Volume Laterality Blood specimen 12/01/2014 10:45 5 (specimen) AM EDT 11:23 AM EDT Ye Galeas MD BLOOD BANK ORDERABLES Performing Organization Address City/[facility]/ZIP Code Phon e Number [address] CERNER MILLENNIUM (ABNORMAL) Fibrinogen (12/01/2014 10:30 AM EDT) athologist Signature Fibrinogen 174 (L) 175 - 450 CERNER mg/dL MILLENNIUM Comment: Called by: INA, Read back by: ANDI COLLADO_, Date/Time:_12/01/14 10:48. Specimen Anatomical Collection Method Collection Time Receive d Time (Source) Location / / Volume Laterality Blood specimen Venous Draw / 12/01/2014 10:30 12/02/19 15 (specimen) Unknown AM EDT 10:35 AM EDT Resulting Agency Comment Spec In Lab Ye Galeas MD HEMATOLOGY ORDERABLES Performing Organization Address City/State/ZIP Code Phon e Number [address] CERNER MILLENNIUM Platelet count (12/01/2014 10:30 AM EDT) athologist Signature Platelets 164 145 - 370 CERNER x10(3)/mcL MILLENNIUM Specimen Anatomical Collection Method Collection Time Receive d Time (Source) Location / / Volume Laterality Blood specimen Venous Draw / 12/01/2014 10:30 12/02/19 15 (specimen) Unknown AM EDT 10:35 AM EDT Resulting Agency Comment Spec In Lab Ye Galeas MD HEMATOLOGY ORDERABLES Performing Organization Address City/[facility]/ZIP [place] [address] CERNER MILLENNIUM (ABNORMAL) BLOOD GAS 2 ARTERIAL (12/01/2014 10:30 AM EDT) Analysis Performed At Patho logist Time Signature pH Art 7.34 (L) CERNER MILLENNIUM pCO2 Art 45 mmHg CERNER MILLENNIUM pO2 Art 387 (H) mmHg CERNER MILLENNIUM HCO3 Art 23.6 mmol/L CERNER MILLENNIUM BE Art -2.3 mmol/L CERNER MILLENNIUM Hgb Blood Gas 11.1 (L) gm/dL CERNER MILLENNIUM O2HB Art 98.7 (H) % CERNER MILLENNIUM COHB Art 0.0 % CERNER MILLENNIUM Comment: Nonsmokers: 0.5-1.5% COHB Smokers: Variable, but usually less than 10% Toxic: 20-30% COHB Lethal: Greater than 60% COHB METHB Art 0.6 % CERNER MILLENNIUM Na Whole Blood 129 (L) mmol/L CERNER MILLENNI UM K Whole Blood 4.2 mmol/L CERNER MILLENNIU M Comment: Please note: Patients with WBC >100,000 may have falsely elevated Potassium levels. Contact the Clinical Chemistry L aboratory if there are any questions. ICa Whole Blood 1.01 (L) mmol/L CERNER MILLENN IUM Comment: Note: ??Total bilirubin higher than 20 m g/dL may lead to falsely low ionized calcium. CL Whole Blood 102 mmol/L CERNER MILLENNI UM Gluc Whole Bld 209 (H) mg/dL CERNER MILLENNI UM Comment: Diabetes: >=200 mg/dL plus symp toms. Specimen Anatomical Collection Method Collection Time Receive d Time (Source) Location / / Volume Laterality Blood specimen 12/01/2014 10:30 5 (specimen) AM EDT 10:30 AM EDT Ye Galeas MD CHEMISTRY ORDERABLES Performing Organization Address City/State/[place] [address] CERNER MILLENNIUM Specimen to Pathology (surgical or derm) (12/01/2014 10:14 AM EDT) Specimen Anatomical Collection Method Collection Time Receive d Time (Source) Location / / Volume Laterality AP Specimen 12/01/2014 10:14 12/01/2014 AM EDT 10:14 AM EDT Narrative CERNER MILLENNIUM - 12/01/2014 10:14 AM EDT Specimen requisition ordered. ??Separate Pathology report to follow Ye Galeas MD PATHOLOGY/CYTOLOGY ORDERABLE S Performing Organization Address City/State/[place] [address] CERNER MILLENNIUM (ABNORMAL) BLOOD GAS 2 ARTERIAL (12/01/2014 10:03 AM EDT) [facility] Method Time Signature pH Art 7.30 (L) CERNER MILLENNIUM pCO2 Art 52 mmHg CERNER (Critical) MILLENNIUM pO2 Art 255 (H) mmHg CERNER MILLENNIUM HCO3 Art 25.0 mmol/L CERNER MILLENNIUM BE Art -1.3 mmol/L CERNER MILLENNIUM Hgb Blood Gas 11.0 (L) gm/dL CERNER MILLENNIUM O2HB Art 98.8 (H) % CERNER MILLENNIUM COHB Art 0.1 % CERNER MILLENNIUM Comment: Nonsmokers: 0.5-1.5% COHB Smokers: Variable, but usually less than 10% Toxic: 20-30% COHB Lethal: Greater than 60% COHB METHB Art 0.3 % CERNER MILLENNIUM Na Whole Blood 130 (L) mmol/L CERNER MILLENNI UM K Whole Blood 4.7 mmol/L CERNER MILLENNIU M Comment: Please note: Patients with WBC >100,000 may have falsely elevated Potassium levels. Contact the Clinical Chemistry L aboratory if there are any questions. ICa Whole Blood 0.97 (L) mmol/L CERNER MILLENN IUM Comment: Note: ??Total bilirubin higher than 20 m g/dL may lead to falsely low ionized calcium. CL Whole Blood 103 mmol/L CERNER MILLENNI UM Gluc Whole Bld 220 (H) mg/dL CERNER MILLENNI UM Comment: Diabetes: >=200 mg/dL plus symp toms. Specimen Anatomical Collection Method Collection Time Receive d Time (Source) Location / / Volume Laterality Blood specimen 12/01/2014 10:03 5 (specimen) AM EDT 10:03 AM EDT Ye Galeas MD CHEMISTRY ORDERABLES Performing Organization Address City/[facility]/ZIP [place] [address] CERNER MILLENNIUM (ABNORMAL) BLOOD GAS 2 ARTERIAL (12/01/2014 9:30 AM EDT) Analysis Performed At [facility] logist Time Signature pH Art 7.40 CERBANNER MILLENNIUM pCO2 Art 37 mmHg [facility] pO2 Art 318 (H) mmHg CERNER MILLENNIUM HCO3 Art 22.1 mmol/L CERNER MILLENNIUM BE Art -2.7 mmol/L CERBANNER MILLENNIUM Hgb Blood Gas 11.0 (L) gm/dL [facility] MILLENNIUM O2HB Art 98.7 (H) % [facility] MILLENNIUM COHB Art 0.2 % [facility] MILLENNIUM Comment: Nonsmokers: 0.5-1.5% COHB Smokers: Variable, but usually less than 10% Toxic: 20-30% COHB Lethal: Greater than 60% COHB METHB Art 0.4 % [facility] MILLENNIUM Na Whole Blood 133 (L) mmol/L [facility] MILLENNI UM K Whole Blood 4.4 mmol/L [facility] MILLENNIU M Comment: Please note: Patients with WBC >100,000 may have falsely elevated Potassium levels. Contact the Clinical Chemistry L aboratory if there are any questions. ICa Whole Blood 0.90 (Critical) mmol/L [facility] M ILLENNIUM Comment: Noted by instrument lens inspector. blr Note: ??Total bilirubin higher than 20 m g/dL may lead to falsely low ionized calcium. CL Whole Blood 104 mmol/L [facility] MILLENNI UM Gluc Whole Bld 176 mg/dL [facility] Comment: Diabetes: >=200 mg/dL plus symp toms. Specimen Anatomical Collection Method Collection Time Receive d Time (Source) Location / / Volume Laterality Blood specimen 12/01/2014 9:30 AM 015 9:30 (specimen) EDT AM EDT Ye Galeas MD CHEMISTRY ORDERABLES Performing Organization Address City/State/ZIP [place] [address] [facility] Surgical Pathology Report (12/01/2014 8:56 AM EDT) Component Value Ref Test Analysis Performed At [facility] gist Range Method Time Signature Surgical CERNER Pathology ? [facility] Report ? Provider: ?? YE GALEAS Pt. Name: ?? OMAR MATTHEWS ? Acc #: ?[id number] ?Pt. MRN: ?[id number] ? Col Date: ?? 5 ? /Sex: ?1950,(64 years),Male ? Rec Date: ?? 12/01/2014 ? LOC: ?[facility] ? SURGICAL PATHOLOGY ? ---Pathologic Diagnosis--- ? A - Aortic valve/leaflets, excision: ? Valve leaflet tissue with nodular calcific and myxoid degeneration. ? B - Ascending aorta, excision: ? Segment of aorta with myxoid degeneration and early m edial cystic ? degeneration. ? CR-0 ? 12/06/14 ? JRP ? 12/06/14 Verified by: ? Vamshi GIBSON, Moe Stein ? Pathologist ? (Electronic Si gnature) ? The attending pathologist whose signature appears o n this report has ? reviewed all diagnostic slides and has edited the yousuf ss and/or ? microscopic portion of the report in rendering the fi nal pathologic ? diagnosis. ? ---Gross Description--- ? A - Labeled/Fixative: Aortic valve leaflets, fresh. ? Quantity/Size: Fragments, aggregating 3.5 x 3.3 x 1.5 cm. ? Tissue Description: Intact and fr agmented portions of aortic valve with ? moderate to severe ca lcific plaques. No vegetations are identified grossly. ? Sections/Processing: Sanitation Lead sections are subm itted for ? decalcification in cassette A1. (R1, for decal) ? B - Labeled/Fixative: Ascending aorta, fresh. ? Quantity/Size: Single, 3.5 cm long x 3.4 cm diameter. ? Tissue Description: P ortion of aortic wall, intact with minimal evidence of ? atherosclerosis. ? Sections/Processing: Sanitation Lead secti ons are submitted. (R1) ??pps ? ---Clinical Information--- ? Specimen Submitted: ? A - Aortic valve/leaflets ? B - Ascending aorta ? Clinical History: ? , dilated ascending aorta ? [facility] ? Provider: ?? YE GALEAS Pt. Name: ?? OMAR MATTHEWS ? Acc #: ?[id number] ?Pt. MRN: ?[id number] ? Col Date: ?? 5 ? /Sex: ?1950,(64 years),Male ? Rec Date: ?? 12/01/2014 ? LOC: ?[facility] ? SURGICAL PATHOLOGY ? Clinical Diagnosis: ? , dilated ascending aorta Specimen (Source) Anatomical Collection Method Collection Time Re ceived Time Location / / Volume Laterality 12/01/2014 8:56 AM EDT Ye Galeas MD PATHOLOGY/CYTOLOGY ORDERABLE S Performing Organization Address City/State/ZIP [place] [address] HALLIE PIPERIUM Specimen to Pathology (surgical or derm) (12/01/2014 8:56 AM EDT) Specimen Anatomical Collection Method Collection Time Receive d Time (Source) Location / / Volume Laterality AP Specimen 12/01/2014 8:56 AM 5 8:56 EDT AM EDT Narrative HALLIE PERALESENNIUM - 12/01/2014 8:56 AM E DT Specimen requisition ordered. ??Separate Pathology report to follow Ye Galeas MD PATHOLOGY/CYTOLOGY ORDERABLE S Performing Organization Address City/[facility]/ZIP [place] [address] CERNER MILLENNIUM (ABNORMAL) BLOOD GAS 2 ARTERIAL (12/01/2014 8:08 AM EDT) Analysis Performed At Patho logist Time Signature pH Art 7.46 (H) CERNER MILLENNIUM pCO2 Art 33 (L) mmHg CERNER MILLENNIUM pO2 Art 436 (H) mmHg CERNER MILLENNIUM HCO3 Art 22.6 mmol/L CERNER MILLENNIUM BE Art -1.2 mmol/L CERNER MILLENNIUM Hgb Blood Gas 14.4 gm/dL CERNER MILLENNIUM O2HB Art 99.0 (H) % CERNER MILLENNIUM COHB Art 0.6 % CERNER MILLENNIUM Comment: Nonsmokers: 0.5-1.5% COHB Smokers: Variable, but usually less than 10% Toxic: 20-30% COHB Lethal: Greater than 60% COHB METHB Art 0.2 % CERNER MILLENNIUM Na Whole Blood 141 mmol/L CERNER MILLENNI UM K Whole Blood 3.6 mmol/L CERNER MILLENNIU M Comment: Please note: Patients with WBC >100,000 may have falsely elevated Potassium levels. Contact the Clinical Chemistry L aboratory if there are any questions. ICa Whole Blood 1.17 mmol/L CERNER MILLENN IUM Comment: Note: ??Total bilirubin higher than 20 m g/dL may lead to falsely low ionized calcium. CL Whole Blood 106 mmol/L CERNER MILLENNI UM Gluc Whole Bld 96 mg/dL CERNER MILLENNI UM Comment: Diabetes: >=200 mg/dL plus symp toms. Specimen Anatomical Collection Method Collection Time Receive d Time (Source) Location / / Volume Laterality Blood specimen 12/01/2014 8:08 AM 015 8:08 (specimen) EDT AM EDT Ye Galeas MD CHEMISTRY ORDERABLES Performing Organization Address City/[facility]/[place]IP [place] [address] CERNER MILLENNIUM Prepare RBC (12/01/2014 6:40 AM EDT) athologist Signature Dispensed? Yes CERNER MILLSIERRA [facility]UCSONIUM Specimen Anatomical Collection Method Collection Time Receive d Time (Source) Location / / Volume Laterality Blood specimen 12/01/2014 6:40 AM 015 6:40 (specimen) EDT AM EDT Ye Galeas MD BLOOD BANK ORDERABLES Performing Organization Address City/State/ZIP Code Phon e Number [address] [facility] PO[facility] Glucose (12/01/2014 6:22 AM EDT) athologist Signature POC Glucose 87 60 - 199 CERNER mg/dL [facility] Comment: Supplemental ranges: <140 mg/dL before meals <180 mg/dL all other times of the day Specimen Anatomical Collection Method Collection Time Receive d Time (Source) Location / / Volume Laterality Blood specimen 12/01/2014 6:22 AM 015 6:22 (specimen) EDT AM EDT Ye Galeas MD POINT OF CARE TEST ORDERABLE S Performing Organization Address City/State/ZIP Code Phon e Number [address] [facility] documented in this encounter Visit Diagnoses Diagnosis Aortic stenosis Aortic valve disorders Status post ascending aortic replacement Blood vessel replaced by other means Status post ascending aortic replacement Blood vessel replaced by other means Status post ascending aortic replacement Blood vessel replaced by other means documented in this encounter Administered Medications Inactive Administered Medications - up to 3 most recent administrations Medication Order MAR Action Action Date Dose Rate Site acetaminophen (TYLENOL) tablet Given 12/05/2014 12:29 PM EDT 1,0 00 mg 1,000 mg 1,000 mg, Oral, EVERY 6 HOURS SCHEDULED, First dose on Sirisha 12/01/14 at 1400, Until Discontinued, For pain when taking by mouth, Routine Given 12/05/2014 5:52 AM EDT 1,000 mg Given 12/04/2014 11:54 PM EDT 1,000 mg albumin human 25 % 50 mL bottle Given 12/01/2014 4:37 PM EDT 50 g Intravenous, ONCE, 1 dose, On Sirisha 12/01/14 at 1630, Routine aspirin chewable tablet 81 mg Given 12/05/2014 8:21 AM EDT 81 mg 81 mg, Oral, DAILY, First dose on Fri12/02/14 at 0900, Until Discontinued, Start on post-op day 1 in the AM., Routine Given 12/04/2014 8:26 AM EDT 81 mg Given 12/03/2014 8:46 AM EDT 81 mg ceFURoxime (ZINACEF) 750mg vial Given 12/02/2014 11:39 AM EDT 75 0 mg 200 mL/hr attach to sodium chloride 0.9% 100 mL Mini-Bag Plus 750 mg, Intravenous, EVERY 8 HOURS, 3 doses, First dose on Fri12/01/14 at 2000, Last dose on Fri12/02/14 at 1200, Administer over 30 Minutes, Attach to 100 mL sodium Chloride Mini-bag Plus. Give first dose at 8 hours after dose in operating room., Indication for (Active or Suspected): Prophylaxis Given 12/02/2014 3:27 AM EDT 750 mg 200 mL/hr Given 12/01/2014 8:02 PM EDT 750 mg 200 mL/hr chlorhexidine (PERIDEX) 0.12 % oral solution Given 11/2014 8:22 AM EDT 15 mLs 15 mL 15 mL, Oral, EVERY 12 HOURS SCHEDULED (2 times per day), First dose on Fri12/01/14 at 2100, Until Discontinued, [place] teeth., Routine Given 12/04/2014 10:18 PM EDT 15 mLs Given 12/04/2014 9:00 AM EDT 15 mLs esomeprazole (NexIUM) capsule 40 mg Given 12/05/2014 8:20 AM EDT 40 mg 40 mg, Oral, DAILY, First dose on Fri12/01/14 at 1400, Until Discontinued, If unable to take PO, may give IV, Routine Given 12/04/2014 8:26 AM EDT 40 mg Given 12/03/2014 8:43 AM EDT 40 mg fentaNYL 50 mcg/mL Rate/Dose Verify 12/01/2014 3:00 PM 25 mcg/hr 0.5 mL/hr infusion EDT 0-100 mcg/hr (0-2 mL/hr), Intravenous, CONTINUOUS, Starting on Fri12/01/14 at 1315, Until Fri12/02/14 at 1053, Titrate to patient comfort, pain scale 1-3. Start at 25 mcg/hr, adjust by 25 mcg/hr every 15 minutes. Dose not to exceed 100 mcg/hour. Rate/Dose Change 12/01/2014 2:30 PM EDT 50 mcg/hr 1 mL/hr Rate/Dose Verify 12/01/2014 2:15 PM EDT 25 mcg/hr 0.5 mL/hr fentaNYL 50mcg/mL injection Given 12/01/2014 8:03 PM EDT 25 mcg 25 mcg, Intravenous, EVERY 1 HOUR PRN, Starting on Sirisha 12/01/14 at 1257, Until Fri12/02/14 at 1053, Pain, For breakthrough pain while extubated., For breakthrough pain while extubated., Routine furosemide (LASIX) injection 20 mg Given 12/05/2014 8:21 AM EDT 20 mg 20 mg, Intravenous, 2 TIMES DAILY, First dose on Fri12/02/14 at 1100, Until Discontinued Given 12/04/2014 5:15 PM EDT 20 mg Given 12/04/2014 8:22 AM EDT 20 mg HYDROmorphone (DILAUDID) tablet 2 mg Given 12/01/2014 5:11 PM EDT 2 mg 2 mg, Oral, EVERY 4 HOURS PRN, Starting on Sirisha 12/01/14 at 1257, Until Sirisha 12/01/14 at 1754, Pain, For pain when taking by mouth. May repeat once in 30 minutes if pain not relieved., Routine HYDROmorphone (DILAUDID) tablet 2-6 mg Given 12/02/2014 11:38 PM EDT 4 mg 2-6 mg, Oral, EVERY 4 HOURS PRN, Starting on Sirisha 12/01/14 at 1753, Until 12/05/14 at 1554, Pain, For pain when taking by mouth. Give 2 mg 1 tab PO Q 4 hours PRN for pain >/= 3-5/10. Give 2 mg 2 tabs PO Q 4 hours PRN for pain >/= 6-8/10. Give 2 mg 3 tabs PO Q 4 hours PRN for pain >/= 9-10/10. Call provider for new pain management orders if pain not relieved after an appropriate amount of time or if regimen is not tolerated. Hold if patient appears over sedated., Routine Given 12/02/2014 4:30 PM EDT 4 mg Given 12/02/2014 10:34 AM EDT 4 mg lactated ringers infusion 1,000 mL New Bag 12/01/2014 7:23 AM EDT 1,000 mL, at 100 mL/hr, Intravenous, CONTINUOUS, Starting on Sirisha 12/01/14 at 0715, Until Sirisha 12/01/14 at 1257, Day of Surgery (Day of Procedure) New Bag 12/01/2014 6:56 AM EDT 1,000 mLs 100 mL/hr magnesium hydroxide (MILK OF MAGNESIA) oral Given 12/05/2014 8:21 AM EDT 10 mLs suspension 10 mL 10 mL, Oral, DAILY, First dose on 12/03/14 at 0900, Until Discontinued, Post-op day 2. Do not use with renal insufficiency., Routine Given 12/04/2014 8:26 AM EDT 10 mLs Given 12/03/2014 8:45 AM EDT 10 mLs metoprolol (LOPRESSOR) pre-split tablet 12.5 Given 08/2014 8:40 PM EDT 12.5 mg mg 12.5 mg, Oral, EVERY 12 HOURS SCHEDULED (2 times per day), First dose on Fri12/02/14 at 1100, Until Discontinued, Hold for HR<50, SBP<90, Routine Given 12/02/2014 10:30 AM EDT 12.5 mg meTOPROLOL tartrate (LOPRESSOR) tablet 2 5 mg Given 12/05/2014 8:20 AM EDT 25 mg 25 mg, Oral, EVERY 12 HOURS SCHEDULED (2 times per day), First dose on 12/03/14 at 0915, Until Discontinued, Routine Given 12/04/2014 8:19 PM EDT 25 mg Given 12/04/2014 8:26 AM EDT 25 mg niCARdipine 0.2 mg/mL Rate/Dose Change 12/01/2014 3:00 PM EDT 3 mg/hr 15 mL/hr (Standard Adult and Olman greater than 20 kg) infusion 0-15 mg/hr (0-75 mL/hr), Intravenous, CONTINUOUS, Starting on Sirisha 12/01/14 at 1430, Until Fri12/02/14 at 1053, Titrate to keep sbp > 90 and <130, start at 5 and advance by 5 q 5 minutes to maintain target BP, Routine Rate/Dose Change 12/01/2014 2:15 PM EDT 7 mg/hr 35 mL/hr New Bag 12/01/2014 2:04 PM EDT 5 mg/hr 25 mL/hr ondansetron (ZOFRAN) injection 4 mg Given 12/01/2014 3:55 PM EDT 4 mg 4 mg, Intravenous, EVERY 8 HOURS PRN, Starting on Sirisha 12/01/14 at 1257, Until 12/05/14 at 1554, Nausea potassium chloride (K-DUR/KLOR-CON) extended Given 11/2014 8:20 AM EDT 20 mEq release tablet 20 mEq 20 mEq, Oral, 2 TIMES DAILY, First dose on Fri12/02/14 at 1200, Until Discontinued, Routine Given 12/04/2014 8:19 PM EDT 20 mEq Given 12/04/2014 8:26 AM EDT 20 mEq potassium chloride (K-DUR/KLOR-CON) extended Given 11/2014 10:57 AM EDT 20 mEq release tablet 20 mEq 20 mEq, Oral, ONCE, 1 dose, On Fri12/05/14 at 0930, 20 mEq tablet may be dissolved in water for administration, Routine propofol (DIPRIVAN) Rate/Dose Change 12/01/2014 2:15 PM 20 mcg/kg/m in 10.9 mL/hr infusion EDT 0-50 mcg/kg/min ? 90.7 kg (0-27.21 mL/hr, rounded to 0-27.2 mL/hr), Intravenous, CONTINUOUS, Starting on Sirisha 12/01/14 at 1315, Until Fri12/02/14 at 1053, Titrate to sedation level of RASS Goal (-) 1. Start at 10 mcg/kg/min, adjust rate by 5 mcg/kg/min every 3 minutes. Dose not to exceed 50 mcg/kg/minute. Discontinue upon extubation., Routine Rate/Dose Verify 12/01/2014 2:00 PM EDT 49.982 mcg/kg/min 27.2 mL/h r New Bag 12/01/2014 1:07 PM EDT 50 mcg/kg/min 27.2 mL/hr senna-docusate (PERICOLACE) 8.6-50 mg per Given 2014 8:41 PM EDT 2 tablets tablet 2 tablet 2 tablet, Oral, DAILY, First dose on Fri12/02/14 at 2100, Until Discontinued, Post-op day 1, Routine sodium chloride 0.9 % flush 5 mL Given 12/05/2014 10:58 AM EDT 5 mLs 5 mL, Intravenous, EVERY 8 HOURS, First dose on Fri12/02/14 at 1115, Until Discontinued, Routine Given 12/04/2014 7:15 PM EDT 5 mLs Given 12/04/2014 5:44 AM EDT 5 mLs sodium chloride 0.9% infusion New Bag 12/01/2014 4:00 PM EDT 200 mL/hr 200 mL/hr 0-500 mL/hr, Intravenous, CONTINUOUS, Starting on Sirisha 12/01/14 at 1315, Until Fri12/02/14 at 1053, Bolus 250 mL every 5 minutes as needed for volume replacement to maintain cardiac index greater than or equal to 2.0 L/min/M2. Maximum volume 2 L. Call fun house attendant for additional fluid orders: pager #[phone]. New Bag 12/01/2014 1:09 PM EDT 100 mL/hr 100 mL/hr sodium chloride 0.9% Rate/Dose Verify 12/01/2014 6:00 PM 30 mL/hr 3 0 mL/hr infusion EDT 10-30 mL/hr, Intravenous, DAILY PRN, Starting on Sirisha 12/01/14 at 1257, Until Fri12/02/14 at 1053, Side port TKO rate, per [facility] nursing protocol. New Bag 12/01/2014 2:45 PM EDT 30 mL/hr 30 mL/hr New Bag 12/01/2014 1:08 PM EDT 30 mL/hr 30 mL/hr sodium chloride 0.9% Rate/Dose Verify 12/02/2014 10:00 AM 10 mL/hr 10 mL/hr infusion EDT 10-30 mL/hr, Intravenous, DAILY PRN, Starting on Sirisha 12/01/14 at 1257, Until Fri12/02/14 at 1607, Side port TKO rate, per [facility] nrusing protocol. Rate/Dose Change 12/02/2014 9:00 AM EDT 10 mL/hr 10 mL/hr Rate/Dose Verify 12/02/2014 8:00 AM EDT 30 mL/hr 30 mL/hr documented in this encounter Active and Recently Administered Medications Times are shown in EDT. Scheduled Medication Order 12/03/2014 12/04/201412/0512/05/2014 acetaminophen (TYLENOL) tablet 1,000 mg 0534 (Given - Provider: Elizabeth Duvall, STUART)1207 (Given - Provider: Melanie Zabala RN)1736 (Given - Provider: Melanie Zabala RN)2337 (Given - Provider: Elizabeth Duvall RN) 0543 (Given - Provider: Elizabeth Duvall RN)1119 (Given - Provider: Melanie Zabala RN)1719 (Given - Provider: Melanie Zabala RN)2354 (Given - Provider: Terry Pereira RN) 0552 (Given - Provider: Terry Pereira, STUART)1229 (Given - Provider: Ernesto Pate, STUART) 1,000 mg, Oral, EVERY 6 HOURS SCHEDULED, First dose on Fri12/01/14 at 1400, Until Discontinued, For pain when taking by mouth, Routine aspirin chewable tablet 81 mg 0846 (Given - Provider: Gage Zabala RN) 0826 (Given - Provider: Melanie Zabala RN) 0821 (Given - Provider: Ernesto Pate, STUART) 81 mg, Oral, DAILY, First dose on 08/18 at 0900, Until Discontinued, Start on post-op day 1 in the AM., Routine chlorhexidine (PERIDEX) 0.12 % oral solution 15 mL (CA NCELED) 0900 (Given - Provider: Melanie Zabala RN)2020 (Given - Provider: Elizabeth Duvall RN) 0900 (Given - Provider: Melanie Zabala RN)2218 (Given - Provider: Terry Pereira, STUART) 0822 (Given - Provider: Ernesto Pate, STUART) 15 mL, Oral, EVERY 12 HOURS SCHEDULED (2 times per day), First dose on Fri12/01/14 at 2100, Until Discontinued, [place] teeth., Routine esomeprazole (NexIUM) capsule 40 mg 0843 (Given - Provider: Melanie Zabala RN) 0826 (Given - Provider: Melanie Zabala RN) 0820 (Given - Provider: Ernesto Pate RN) 40 mg, Oral, DAILY, First dose on Fri15 at 1400, Until Discontinued, If unable to take PO, may give IV, Routine furosemide (LASIX) injection 20 mg (CANCELED) 0840 (Gi neal - Provider: Melanie Zabala RN)1732 (Given - Provider: Melanie Zabala, RN) 0822 (Given - Provider: Melanie Zabala, RN)1715 (Given - Provider: Melanie Zabala, RN) 0821 (Given - Provider: Ernesto Pate, RN) 20 mg, Intravenous, 2 TIMES DAILY, First dose on Fri12/02/14 at 1100, Until Discontinued, Routine magnesium hydroxide (MILK OF MAGNESIA) oral suspension 10 mL (CANCELED) 0845 (Given - Provider: Melanie Zabala RN) 0826 (Given - Provider: Melanie Zabala, STUART) 0821 (Given - Provider: Ernesto Pate, RN) 10 mL, Oral, DAILY, First dose on 12/03/14 at 0900, Until Discontinued, Post- op day 2. Do not use with renal insufficiency., Routine meTOPROLOL tartrate (LOPRESSOR) tablet 25 mg 0848 (Giv en - Provider: Melanie Zabala, RN)2018 (Given - Provider: Elizabeth Duvall, STUART) 0826 (Given - Provider: Melanie Zabala, STUART)2018 (Given - Provider: Terry Pereira, RN) 0820 (Given - Provider: Ernesto Pate, RN) 25 mg, Oral, EVERY 12 HOURS SCHEDULED (2 times per day), First dose on 12/03/14 at 0915, Until Discontinued, Routine potassium chloride (K-DUR/KLOR-CON) extended release t ablet 20 mEq 0845 (Given - Provider: Melanie Zabala, STUART)2018 (Given - Provider: Elizabeth Duvall, STUART) 0826 (Given - Provider: Melanie Zabala, STUART)2019 (Given - Provider: Terry Pereira, RN) 0820 (Given - Provider: Ernesto Pate, RN) 20 mEq, Oral, 2 TIMES DAILY, First dose on Fri12/02/14 at 1200, Until Discontinued, Routine potassium chloride (K-DUR/KLOR-CON) extended release tablet 20 mEq (COMPLETED) 1057 (Given - Provider: Ernesto Pate, STUART) 20 mEq, Oral, ONCE, 1 dose, 12/05/14 a t 0930, 20 mEq tablet may be dissolved in water for administration, Routine senna-docusate (PERICOLACE) 8.6-50 mg per tablet 2 tab let 2100 (Not Given - Provider: Elizabeth Duvall RN - Reason: Patient/family refused) 2100 (Not Given - Provider: Terry Pereira RN - Reason: Patient/family refused) 2 tablet, Oral, DAILY, First dose on Fri12/02/14 at 2100, Until Discontinued, Post-op day 1, Routine sodium chloride 0.9 % flush 5 mL (CANCELED) 0534 (Give n - Provider: Elizabeth Duvall RN)1115 (Not Given - Provider: Melanie Zabala RN - Reason: Contraindicated)1915 (Given - Provider: Melanie Zabala RN) 0544 (Given - Provider: Elizabeth Duvall RN)1115 (Not Given - Provider: Melanie Zabala RN - Reason: Contraindicated)1915 (Given - Provider: Melanie Zabala, STUART) 0315 (Not Given - Provider: Terry Pereira RN - Reason: See comment)1058 (Given - Provider: Ernesto Pate, STUART) 5 mL, Intravenous, EVERY 8 HOURS, First dose on Fri12/02/14 at 1115, Until Discontinued, Routine PRN Medication Order 12/03/2014 12/04/2014 12/05/2014 HYDROmorphone (DILAUDID) tablet 2-6 mg 2-6 mg, Oral, EVERY 4 HOURS PRN, Startin g Sirisha 12/01/14 at 1753, Until 12/05/14 at 1554, Pain, For pain when taking by mouth. Give 2 mg 1 tab PO Q 4 hours PRN for pain >/= 3-5/10. Give 2 mg 2 tabs PO Q 4 hours PRN for pain >/= 6-8/10. Give 2 mg 3 tabs PO Q 4 hours PRN for pain >/= 9-10/10. Call provider for new pain management orders if pain not relieved after an appropriate amount of time or if regimen is not tolerated. Hold if patient appears over sedat ed., Routine documented in this encounter Care Teams Heel [facility]er Relationship Specialty Start Date End Date Eda Wilson MD PCP - General 06/26/10 02/20/[address] [place] [address] [place] [address] documented as of this encounter
--- OUTSIDE RECORDS SUMMARY | 2022-07-05 02:49 | XMS_ITS | Encounter Summary ---
:1950 Author Organization [facility] [place] [address] Care Team Providers Name Role Phone Yosi Graham Primary Care Provider Reason for Referral Diagnostic Test (Routine) - Closed Specialty Diagnoses / Procedures Referred By Contact Refer red To Contact Radiology Diagnoses S/P Susie Monet Mhmh Rad Ct Scan Procedures CT Angiogram Chest (Non-Coronary) w Contrast CT Angiogram Chest (Non-Coronary) [place] [address] [place] [address] Referral ID Status Reason Start Date Expiration Date Visits V isits Requested Authorized [id number] Closed Specialty 03/04/2022 09/04/2023 1 1 Service Requested Reason for Visit Diagnostic Test (Routine) - Closed Specialty Diagnoses / Procedures Referred By Contact Refer red To Contact Radiology Diagnoses S/P Susie Monet radha Rad Ct Scan Procedures CT Angiogram Chest (Non-Coronary) w Contrast CT Angiogram Chest (Non-Coronary) [place] [address] [place] [address] Referral ID Status Reason Start Date Expiration Date Visits V isits Requested Authorized [id number] Closed Specialty 03/04/2022 09/04/2023 1 1 Service Requested Encounter Details Date Type Department Care Team Description 04/22/[address] [place] [facility] Alonzo W, S/P AVR [facility] [place] [address] CARDIOTHORACIC SURGERY [place], [place] [address] (Wo rk) Social History Tobacco [...] Priority Date/Time Associated Diagnosis Comme nts CT ANGIOGRAM OF Routine 04/22/2022 11:47 AM S/P AVR Resul ts for this CHEST EDT procedure are i n (NON-CORONARY) W the results CONTRAST section. documented in this encounter Results CT Angiogram Chest (Non-Coronary) w Contrast (04/22/2022 11:47 AM EDT) Anatomical Region Laterality Modality Chest Computed Tomography Specimen (Source) Anatomical Collection Method Collection Time Re ceived Time Location / / Volume Laterality 04/22/2022 12:05 PM EDT Impressions 04/22/2022 4:58 PM EDT Stable findings related to aortic valve replacement and ascending aortic repair. Based on centerline reconstructions on 1 the previous maximal diameter just cranial to the ascending aortic rep air was before 37 mm and is now 39 mm. Thank you for letting us participate in the care of this patient. ??If you are a health care provider and have any questi ons regarding this report, please contact the number below. ??For patients who have questions please contact the health critical care educator that requested your imaging first. ? Electronically signed by: Gaby Putnam MD, [facility] ([phone]), at 04/22/2022 4:58 PM Narrative 04/22/2022 4:58 [...] ho have questions please contact the health critical care educator that requested your imaging first. Electronically signed by: Gaby Putnam MD, [facility] ([phone]), at 04/22/2022 4:58 PM Tay Alonzo MD IMG CT ORDERABLES documented in this encounter Visit Diagnoses Diagnosis S/P AVR Heart valve replaced by other means documented in this encounter Administered Medications Inactive Administered Medications - up to 3 most recent administrations Medication Order MAR Action Action Date Dose Rate Site iohexoL (Omnipaque) (350 mg/mL) Given 04/22/2022 11:44 AM EDT 65 mLs solution 0-200 mL 0-200 mL, Intravenous, ONCE PRN, 1 dose, Starting on Fri04/22/22 at 1144, Until Fri04/22/22 at 1144, Per Protocol, Warning Vesicant/Irritant Medication , Radiology Contrast, Routine documented in this encounter Care Teams Pack Press Operator Relationship Specialty Start Date End Date Yosi Graham PA PCP - General Internal Medicine 04/22/22 Jessica [address]S [address] [place] [address] documented as of this encounter
--- OUTSIDE RECORDS SUMMARY | 2022-07-05 02:49 | XMS_ITS | Encounter Summary ---
:1950 [place] [address] Care Team Providers Name Role Phone Jacky Nur MD Primary Care Provider Encounter Details Date Type Department Care Team Description 01/23/2015 Orders Only Cardiac Surgery at [facility] Joel Christianson PA S/P AVR [facility] [place] [address] CARDIOTHORACIC SURGERY [phone] [place] [address] (Wo rk) Social History Tobacco Use Types [...] means documented in this encounter Care Teams Aerodynamics Professor Relationship Specialty Start Date End Date Jacky Nur MD PCP - General 06/26/10 02/20/[address] [place] [address] [place] [address] documented as of this encounter
--- OUTSIDE RECORDS SUMMARY | 2022-07-05 02:50 | XMS_ITS | Encounter Summary ---
:1950 [place] [address] Care Team Providers Name Role Phone Jacky Nur MD Primary Care Provider Encounter Details Date Type Department Care Team Description 12/01/2014 Anesthesia Event Main Operating Room Neel George MD [facility] [place] [address] [facility] Layo Salomon MD [facility] [place] [address] [place] [address] Anesthesia Record Procedure Summary Procedure Name Responsible Anesthesia Start Anesthesia Stop Time Anesthesiologist Time @REPLACE AORTIC Neel Herring MD 12/01/14 0723 12/01/14 12 54 VALVE, OPEN, W\CPB, W\PROSTHETIC VALVE (WRVU 41.32) (Chest) Events Date Time Event Comment 12/01/2014 0723 AN Verify 0723 Start 0723 An Start Data 0734 An Induction 0739 An Intubation 0751 Anesthesia Ready 0808 ABG Data Arterial Blood G as result: pH 7.46 pCO2 33 pO2 436 FiO2 1.0 %O2 Sat 100 HCO3 23 BE -1 Hb 14.4 Glucose 96 K 3.6 0854 Heparin 0902 AN AORTIC CANNULA 0911 AN Venous Cannula 0913 CV Bypass init 0917 An Clamp start 1005 Quick Note Requested by per fusionist to assist with maintaining MAP. Vasopressin ggt started. 1034 Heparin 1121 Staff Electrical Engineer 1126 AN Defib 1126 An Clamp Remove 1141 CP Bypass Ended 1142 Protamine 1149 Decannulation 1240 an stop data 1254 Stop 12/07/2014 1141 Name Total Midazolam 10 mg fentaNYL 1,000 mcg Propofol INF 190.47 mg Vecuronium 10 mg Heparin 30,000 Units Protamine 250 mg Tranexamic Acid 910 mg Tranexamic Acid INF 476.18 mg Insulin Regular INF 16.17 Units ceFURoxime 3 g Vancomycin 1 g ePHEDrine 20 mg Rocuronium 150 mg Vasopressin INF 3.8 Units Vasopressin 1 Units NORepinephrine INF 53 mcg NORepinephrine 48 mcg Sodium Chloride 0.9% 500 mL lactated ringers infusion 1,000 mL 700 mL Agents Name Isoflurane (et) Blood No blood administrations on file. Lines, Drains, and Airways Type Details Placement Removal Incision 12/01/14; chest; midline, 12/01/14 0000 by 04/01 1715 by vertical; 04/01/22 (LDA Paige Burns Dierdre L cleanup utility RA#[id number]); Sera العلي RN 1715 ([facility] cleanup utility RA#[id number]) Urethral Catheter 12/01/14; Surgery longer 12/01/14 0000 by 09/18 0740 by than 2 hours, Need for Vj Burns J essica F, RN intraoperative urine output Sera العلي RN monitoring; indwelling catheter with core temperature probe; 100% silicone; 16; inserted at this facility (by Sera Burns RN.); 1; 5; 10; none; drainage bag to dependent drainage; 12/03/14; 0740 Chest Tube 12/01/14; Left; posterior; 12/01/14 0000 by 08/18 0947 by mediastinal; Angled 28 Fr.; Marine Burns Allison J, 12/02/14; 0947 Sera العلي RN RN Chest Tube 12/01/14; Right; anterior; 12/01/14 0000 by 08/18 0948 by mediastinal; Straight 28 Lang Burns Allison J, Fr.; 12/02/14; 0948 Sera العلي RN RN PIV 12/01/14; 0655; metacarpal 12/01/14 0655 by 11/02 01/19 0921 by vein left (top of hand); Julia Macias, RN Ep ic, User nyah-rta-nhzoyk catheter system; 18 gauge; CM; intradermal injection, tolerated well; 11/17/17 (Auto removal via utility); 0921 (Auto removal via utility) Arterial Line 12/01/14; 0723; radial 12/01/14 0723 by 12/02/14 1117 by artery; 20 gauge; Aime; Layo Salomon MD Ro smus, Allison J, Sterile Prep; 12/02/14; RN 1117 PA Catheter 12/01/14; 0723; Right; 12/01/14 0723 by 12/01/14 1800 by internal jugular vein; 8 Layo Salomon MD Woma ck, Jane C, RN Fr; CVC Protocol Performed; Aime; 12/01/14; 1800 CVC Single/Intro. 12/01/14; 0723; internal 12/01/14 0723 by 08/18 1118 by jugular vein, right; Layo Salomon MD Rosmus, Allison J, Ultrasound Guidance; Yes; 9 RN Fr; Aime; CULLEN; 12/02/14; 1118 ETT Mask Ventilation: Easy (1); 12/01/14 0739 by 1507 by ETT Type: Cuffed, Oral; ETT Layo Salomon MD P hillips, Amy L RN Size: 8 mm; Mac Blade: 4; Notes: Asleep, Pre-O2, Stylette; Attempts: 1; Laryngoscopy Grade: 2; ETT Placement Verified By: Auscultation, Capnometry; Secured at Teeth: 22 cm; Inserted by: Aime documented in this encounter Social History Tobacco Use Types Packs/Day Years Used Date Smoking Tobacco: Never Smokeless Tobacco: Never Alcohol Use Standard Drinks/Week Comments Yes 2 (1 standard drink = 0.6 oz pure alcoho l) occassional Sex Assigned at Date Recorded Not on file documented as of this encounter OR Notes Anesthesia Postprocedure Evaluation - Layo Salomon MD - 12/04/2014 2:40 PM EDT Patient: Po Matthews Procedure(s) Performed: Procedure(s): @REPLACE AORTIC VALVE, W\CPB, W\PROSTHETIC VALVE @ASCEND AORTA GRAFT, W\CPB, W\WO VALVE SUSPEN; W\ AORTIC ROOT REPLCMNT Actual Anesthetic: General Patient location: Medical Floor Post-op pain: Adequate analgesia Post-op nausea: no nausea or vomiting Last Vitals: Filed Vitals: 12/04/14 1123 BP: 108/64 Pulse: 77 Temp: 37.2 ??C (99 ??F) Resp: 18 Post-op cardiovascular and respiratory status: is stable Level of consciousness: awake, alert and oriented Complications: no apparent complications and tolerated the procedure well Fluid Status: normal Anesthesia Preprocedure Evaluation - Layo Salomon MD - 11/30/2014 3:30 PM EDT Images from the original note were not included. Pre-Anesthesia Evaluation for: Po ahn 64 y.o. male. Procedure(s): @REPLACE AORTIC VALVE, W\CPB, W\PROSTHETIC VALVE @ASCEND AORTA GRAFT, W\CPB, W\WO VALVE SUSPEN; W\ AORTIC ROOT REPLCMNT Patient Active Problem List Diagnosis ??? Ascending aorta dilatation ??? Aortic stenosis Progressvie NYHA Class II DAWN Cardiac catheterization 11/07/14: RAP-9 PAP-03/07/19 PCWP-13 CO/CI-6.67/3.30; ascending aorta- 4.5 cm,mild disease prox LAD and mid RCA, no significnat coronary artery disease Echocardiography 09/30/14: LVEF 65%, no RWMA, LVH, nl RV, severe peak/mean gradients 100/52 mmHg, FABIOLA 0.6 sq cm, trivial AR, trivial MR, trivial TR, Dilated ascending aorta 4.0 cm, PASP 26 mmHg, Echocardiography 03/01/13: LVEF 65%, no RWMA, nl RV, severe peak/mean gradients 50/19, FABIOLA- 0.8 sqcm, Trivila AR, MR, and TR, PASP 26 mmHg Echocardiography 07/03/11: LVEF 65%, no RWMA, nl RV, Moderate , peak/mean gradients 40/24 mmHg, FABIOLA- 0.9 sq cm, Trivial AR, MR, TR, PASP 23 mmHg Echocardiography 09/19/08: LVEF 65%, no RWMA, nl RV, moderate , peak/mean gradients 48/25 mmHg, FABIOLA-1.1 sq cm, 3,8 cm ascendingaorta ??? Hypertension, essential, benign Past Medical History Diagnosis Date ??? Hypertension, essential, benign 11/07/2014 No past surgical history on file. History Substance Use Topics ??? Smoking status: Never Smoker ??? Smokeless tobacco: Never Used ??? Alcohol Use: 1.2 oz/week 2 Cans of beer per week Comment: occassional History Drug Use No No Known Allergies Medications: MAR and/or home medications have been reviewed. Physical Exam: There were no vitals filed for this visit. There is no weight on file to calculate BMI. Airway Assessment: Mallampati: II TM distance: >3 FB Neck ROM: full Cardiovascular Assessment: Rhythm: regular (+) murmur Pulmonary Assessment: breath sounds clear to auscultation pulmonary exam normal Dental Assessment: - normal exam Misc Assessment: Patient is wearing No contact(s). IV access: Peripheral line Anesthesia Plan: ASA 4 general, with a(n) intravenous induction 64 y.o male wit HTN and aortic stenosis to OR for aortic valve replacement, possible ascending aortic graft. TTE with EF 65%, FABIOLA 0.6-0.7 cm2, peak gradient 100, mean gradient 52, ascending aorta 4.1 cm. Cardiac cath shows no CAD, nml coronary anatomy, PAP 30/11 with CI 3.1. No problems with anesthesia in the past. Appropriately NPO, no recent URI/fevers, no GERD or dysphagia. Review system negative for lung, renal pathology or stroke. Exercise tolerance is reasonably preserved; still walking up to 3 miles on treadmill. No prior anesthetic records NKDA Plan a-line, GETA, central line, PAC, CULLEN Region - Intrathoracic Cardiac Informed Consent: Anesthetic plan and risks discussed with patient and spouse. Use of blood products discussed with patient and spouse whom. Plan discussed with attending. Misc. Assessment: documented in this encounter Plan of Treatment Not on filedocumented as of this encounter Visit Diagnoses Not on filedocumented in this encounter Administered Medications Inactive Administered Medications - up to 3 most recent administrations Medication Order MAR Action Action Date Dose Rate Site ceFURoxime (ZINACEF) injection 1.5 Given 12/01/2014 11:49 AM EDT 1.5 g g PRN, Starting on Sirisha 12/01/14 at 0751, Until Fri12/02/14 at 1420, Anesthesia Intra-op, Routine Given 12/01/2014 7:51 AM EDT 1.5 g ePHEDrine 5 mg/mL multi-dose injection Given 12/01/2014 8:16 AM EDT 5 mg PRN, Starting on Sirisha 12/01/14 at 0808, Until Fri12/02/14 at 1420, Anesthesia Intra-op, Routine Given 12/01/2014 8:09 AM EDT 10 mg Given 12/01/2014 8:08 AM EDT 5 mg fentaNYL 50 mcg/mL multi-dose injection Given 12/01/2014 11:36 AM EDT 250 mcg PRN, Starting on Sirisha 12/01/14 at 0734, Until Fri12/02/14 at 1420, Pain, Anesthesia Intra-op, Routine Given 12/01/2014 8:28 AM EDT 250 mcg Given 12/01/2014 8:12 AM EDT 100 mcg heparin (porcine) injection Given 12/01/2014 8:54 AM EDT 30,000 Units PRN, Starting on Sirisha 12/01/14 at 0854, Until Fri12/02/14 at 1420, Anesthesia Intra-op, Routine insulin regular human New Bag 12/01/2014 9:40 AM EDT 5 Units/hr 5 mL/hr (HumuLIN;NovoLIN) 1unit/mL 150 Units in sodium chloride 0.9% 150 mL infusion CONTINUOUS PRN, Starting on Sirisha 12/01/14 at 0940, Until Fri12/02/14 at 1420, Anesthesia Intra-op, Routine lactated ringers infusion 1,000 mL New Bag 12/01/2014 7:23 AM EDT 1,000 mL, at 100 mL/hr, Intravenous, CONTINUOUS, Starting on Sirisha 12/01/14 at 0715, Until Fri12/01/14 at 1257, Day of Surgery (Day of Procedure) New Bag 12/01/2014 6:56 AM EDT 1,000 mLs 100 mL/hr midazolam (PF) (VERSED) 1 mg/mL multi-dose Given 12/01/2014 9:17 AM EDT 4 mg injection PRN, Starting on Sirisha 12/01/14 at 0723, Until Fri12/02/14 at 1420, Sleep, Anesthesia Intra-op, Routine Given 12/01/2014 7:34 AM EDT 4 mg Given 12/01/2014 7:23 AM EDT 2 mg NORepinephrine (LEVOPHED) injection Given 12/01/2014 12:00 PM EDT 8 mcg PRN, Starting on Sirisha 12/01/14 at 1128, Until Fri12/02/14 at 1420, Anesthesia Intra-op, Routine Given 12/01/2014 11:54 AM EDT 8 mcg Given 12/01/2014 11:30 AM EDT 16 mcg NORepinephrine 16 mcg/mL Restarted 12/01/2014 11:56 AM 1 mcg/min 3. 8 mL/hr (standard ADULT and Olman greater EDT than 20 kg) infusion CONTINUOUS PRN, Starting on Sirisha 12/01/14 at 1123, Until Fri12/02/14 at 1420, Anesthesia Intra-op, Routine Rate/Dose Change 12/01/2014 11:36 AM EDT 1 mcg/min 3.8 mL/hr New Bag 12/01/2014 11:23 AM EDT 3 mcg/min 11.3 mL/hr propofol (DIPRIVAN) infusion New Bag 12/01/2014 12:12 PM 50 mcg/kg/min 27.2 mL/hr CONTINUOUS PRN, Starting on EDT Sirisha 12/01/14 at 1212, Until Fri12/02/14 at 1420, Anesthesia Intra-op, Routine protamine injection Given 12/01/2014 11:42 AM EDT 250 mg PRN, Starting on Sirisha 12/01/14 at 1142, Until Fri12/02/14 at 1420, Anesthesia Intra-op, Routine rocuronium (ZEMURON) multi-dose injectio n Given 12/01/2014 10:54 AM EDT 50 mg PRN, Starting on Sirisha 12/01/14 at 0735, Until Fri12/02/14 at 1420, Anesthesia Intra-op, Routine Given 12/01/2014 7:35 AM EDT 100 mg sodium chloride 0.9% infusion New Bag 12/01/2014 7:51 AM EDT CONTINUOUS PRN, Starting on Sirisha 12/01/14 at 0751, Until Fri12/02/14 at 1420, Anesthesia Intra-op tranexamic acid (CYKLOKAPRON) 100 mg/mL bolus Given 7:39 AM EDT 910 mg injection (Anesthesia) PRN, Starting on Sirisha 12/01/14 at 0739, Until Fri12/02/14 at 1420, Anesthesia Intra-op, Routine tranexamic acid (CYKLOKAPRON) New Bag 12/01/2014 7:39 AM 1 mg/kg/h r 0.9 mL/hr injection EDT CONTINUOUS PRN, Starting on Sirisha 12/01/14 at 0739, Until Fri12/02/14 at 1420, Anesthesia Intra-op, Routine vancomycin (VANCOCIN) injection Given 12/01/2014 7:51 AM EDT 1 g PRN, Starting on Sirisha 12/01/14 at 0751, Until Fri12/02/14 at 1420, Anesthesia Intra-op, Routine vasopressin (PITRESSIN) 0.5 New Bag 12/01/2014 10:07 0.04 Units/mi n 4.8 mL/hr units/mL IV infusion AM EDT (Anesthesia) CONTINUOUS PRN, Starting on Sirisha 12/01/14 at 1007, Until Fri12/02/14 at 1420 vasopressin (PITRESSIN) injection Given 12/01/2014 10:07 AM EDT 1 Units PRN, Starting on Sirisha 12/01/14 at 1007, Until Fri12/02/14 at 1420, Bleeding, Anesthesia Intra-op, Routine vecuronium (NORCURON) injection Given 12/01/2014 9:06 AM EDT 10 mg PRN, Starting on Sirisha 12/01/14 at 0906, Until Fri12/02/14 at 1420, Anesthesia Intra-op, Routine documented in this encounter Care Teams Pool Nurse Relationship Specialty Start Date End Date Jacky Nur MD PCP - General 06/26/10 02/20/[address] [place] [address] [place] [address] documented as of this encounter
--- OUTSIDE RECORDS SUMMARY | 2022-07-05 02:50 | XMS_ITS | Encounter Summary ---
:1950 Author Organization [facility] [place] [address] Care Team Providers Name Role Phone Eda Wilson MD Primary Care Provider Encounter Details Date Type Department Care Team Description 12/01/2014 Surgery Main Operating Room Ye Galeas, @REPLACE AORTIC VALVE, Monica Mendes MD OPEN, W\CPB, Hospital [facility] W\PROSTHETIC VALVE [facility] ([address] [place] [address] SURGERY [phone] [place] [id number] (Wo rk) Social History Tobacco Use Types [...] Patient Age: 64 y.o. Birthdate: 1950 Language: Canadian Race: White Ethnicity: Not nor Admit Date: 12/01/2014 Discharge Date: 12/05/14 Attending Physician: Ye Galeas MD Follow-up Recommendations for Providers: Please continue routine management of cardiovascular risk factors including blood pressure, lipids, glucose, etc. Please note any changes to medications. Please follow-up with your PCP in 2 weeks. Please follow-up with your Doughnut Glazier Dr. Howell within 4 weeks. Please follow-up with Dr. Galeas in 4 weeks. Inpatient Provider Contact Information: [facility] Section of Cardiothoracic Surgery [facility] [place] [facility] [address] FAX [phone] Discharge Diagnoses (Hospital Problems) Primary Diagnoses: 1. [...] VALVE performed by Ye Galeas MD at [facility] MAIN OR ??? Ascend aorta grft w root replacmt N/A 12/01/2014 @ASCEND AORTA GRAFT, W\CPB, W\WO VALVE SUSPEN; W\ AORTIC ROOT REPLCMNT performed by Ye Galeas MD at [facility] MAIN OR Prior To Admission Medications Prescriptions [...] Hospital Course: Omar Matthews was admitted to [facility] on 12/01/2014 via the Same Day [...] % Liqd Commonly known as: HIBICLENS lisinopril-hydrochlorothiazide 10-12.5 mg Tab Commonly known as: PRINZIDE;ZESTORETIC Instructions [...] Ye Galeas and/or the Cardiac Surgery Physician City Distribution Clerk Team may be reached at . Antibiotic prophylaxis: You will need to take antibiotics prior to many invasive tests and treatments, such as dental cleaning, which should be done every 6 months. Your primary care physician or your dentist can prescribe this medication. Please refer to the card with the [place] Heart Association Gu idelines for more information. You have been provided with 3 copies of this card. Keep one for your self. Give one to your primary care physician and one to your dentist. Please refer to the [place] Heart Association Guidelines for more information. Good [...] Dr. Ye Galeas. You may use a [place] Track or treadmill but avoid any pulling [...] friends, go to a movie, go to lutheran, etc. Heavy activities: No hunting, skiing, jogging, snow shoveling, snowmobiling, lawn mowing, swimming, golf or tennis until after your return appointment with the surgeon. Do not ride motorcycles, [employer]'s tractors or horses. Avoid the use of [...] should resume a low fat, low cholesterol, [place] Heart Association Diet, Driving: No driving until [...] you with your appointment information. Cardiac Rehabilitation: [facility] CARDIAC REHABILITATION Omar Matthews was seen today regarding participation in the outpatient Phase 2 Cardiac Rehabilitation at [facility] . The patient agrees to a referral to this program. The referral will be sent at discharge and the patient should be contacted by the Program within 1- 2 weeks from discharge. Future Appointments and Orders Future Orders Complete By Expires Echocardiogram Transthoracic(Leb) [IMU876 Custom] 12/05/2014 12/05/2015 Process Instructions: If the Echocardiogram is to be PERFORMED in a location other than [place]--STOP and order [id number], Echocardiogram South/External. Scheduling Instructions: Questions: Is a Bubble Study requested?: Does the patient have Congenital Heart Disease?: Does patient require sedation?: GA rationale: Should this service/procedure be billed to the research sponsor?: XR chest routine PA & lateral [[id number] Custom] 12/05/2014 12/05/2015 Process Instructions: Scheduling Instructions: [...] Questions: Which location will this be performed?: [place] Is a rhythm strip needed?: No If EKG Reason is Pre-op Evaluation, indicate diagnosis for surgery.: Should this service/procedure be billed to the research sponsor?: Full code [COD2 Custom] As directed Process Instructions: 1) Ordering MD or GRIZZLYMAN must provide Order Justification documentation for a: [...] Attending of Record, the ordering MD or GRIZZLYMAN must obtain (verbal) approval of the Attending of Record. Completing this documentation indicates that you have obtained verbal approval from the Attending of Record Scheduling Instructions: Questions: Does patient have decision making capacity?: Yes, Order is based on Patients wishes. Responsible decision maker(s), other than patient: Content of discussion: Referral to Cardiac Rehab [COU948 Custom] As directed Process Instructions: If no progress note charted, please enter Clinical details in comments. Scheduling Instructions: Questions: My question or request is: AVR- Cardiac rehab at [facility] Referral to Home Health - at DISCHARGE [VDJ2443 CPT(R)] As directed Process Instructions: Scheduling Instructions: Comments: DOCUMENTATION FOR VNA SERVICES (INCLUDING THOSE PATIENTS WITH MEDICARE COVERAGE REQUIRING HOME VNA SERVICES AND/OR HOSPICE SERVICES) PATIENT'S LOCATION: Omar Matthews [address] [place] [phone] (home) No relevant phone numbers on file. Medical Laboratory Specialist's Name: Pt and his Karen In discussion with the attending physician, it is certified that this patient is under their care and that they, or a Nurse Practitioner, or Physician City Distribution Clerk who is working directly with them, had [...] need for servicesas follows: HOME HEALTH AGENCY: [facility] PHONE: [phone] FAX: [phone] RN orders: Cardiopulmonary assessment, incisional assessment, assess [...] please call the Cardiac Surgery Office at [phone] FOR MEDICARE ONLY: (please delete this section [...] noted. Questions: Agency name and contact information: [facility] Patient location post discharge: Home What services are requested: Registered Nurse Start date: Responsible MD post discharge contact info: Dr. Galeas Arrangements for VNA/home care: As above. VN RN OR PCP TO PLEASE REMOVE CHEST TUBE SUTURES ON OR AFTER 12/11/14. Home oxygen therapy: N/A Signed: MAYE Edwards [facility] Section of Cardiothoracic Surgery Date: 12/05/2014 CC: [facility]ILSON [facility] [address] [place] [address] documented in this encounter Discharge Instructions Patient [...] Ye Galeas and/or the Cardiac Surgery Physician City Distribution Clerk Team may be reached at . Antibiotic prophylaxis: You will need to take antibiotics prior to many invasive tests and treatments, such as dental cleaning, which should be done every 6 months. Your primary care physician or your dentist can prescribe this medication. Please refer to the card with the [place] Heart Association Gu idelines for more information. You have been provided with 3 copies of this card. Keep one for your self. Give one to your primary care physician and one to your dentist. Please refer to the [place] Heart Association Guidelines for more information. Good [...] Dr. Ye Galeas. You may use a [place] Track or treadmill but avoid any pulling [...] friends, go to a movie, go to lutheran, etc. Heavy activities: No hunting, skiing, jogging, snow shoveling, snowmobiling, lawn mowing, swimming, golf or tennis until after your return appointment with the surgeon. Do not ride motorcycles, [employer] tractors or horses. Avoid the use of [...] should resume a low fat, low cholesterol, [place] Heart Association Diet, Driving: No driving until [...] you with your appointment information. Cardiac Rehabilitation: [facility] CARDIAC REHABILITATION Omar Matthews was seen today regarding participation in the outpatient Phase 2 Cardiac Rehabilitation at [facility] . The patient agrees to a [...] Care Everywhere.HTN (HYPERTENSION): DIURETICS : GENERAL INFO (KOREAN)HYPERTENSION (KOREAN) documented in this encounter Medications at Time [...] Office of Care Management (OCM) / Clinical Day Light Relief Operator (CRC)/ Initial Assessment Discussed patient with Provider Team and in multidisciplinary discharge-planning rounds. Reviewed record and interviewed patient. Introduced/reviewed CRC role and services accepted. REASON for HOSPITALIZATION: S /P tissue AVR and ascending aortic replacement PMH See H&P Note.. PREVIOUS FUNCTIONAL STATUS: Independent at home. 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 CURRENT FUNCTIONAL STATUS: INd. AXOX3 SOCIAL / FAMILY SUPPORTS: Lives with his Karen. ADVANCE DIRECTIVES: No AD on file. HEALTH /PRESCRIPTION COVERAGE: [place] [facility].No financial concerns expressed at this time. CURRENT HOME/COMMUNITY SERVICES/EQUIPMENT: DME: None Home Health Agency: None Other: STATIONARY STEAM ENGINEER REFERRAL: Notified STATIONARY STEAM ENGINEER - for Support/Financial/Medication Assistance; See STATIONARY STEAM ENGINEER notes for further needs. PRIMARY CARE PHYSICIAN: EDA WILSON MD [address] [place] [id number] POTENTIAL DISCHARGE NEEDS: Pt would benefit from home VN at time of d/c. Team and Pt agree. A list of psychosocial rehabilitation counselor/DMEs which serve the geographic area which the patient resides or the geographic arearequested by the patient/risk control representative was made available.Full Disclosure Statement provided, as appropriate. Patient requests referral to [facility]. PHONE: [phone] FAX: [phone] [facility]. Orders Pended for RN Referrals sent via mmCHANNEL by Spreading Machine Operator. PATIENT/FAMILY EDUCATION NEEDS: Educated as to CRC role and hospital course, questions answered; verbalized understanding. Report understanding current plan of care. ANTICIPATED BARRIERS TO DISCHARGE: None ID at this time. TRANSPORTATION @ D/C: will provide ride at time of d/c. PLAN: CRC will continue to monitor progress, follow for continuity of care and assist with dischargeplanning while hospitalized Ezequiel CALDERON, RN Clinical Day Light Relief Operator Pager [phone] Eda Helms III, PA - 12/05/2014 11:36 AM EDT Cardiac Surgery Progress Note: ID: [id number] 64 year old man POD # 4 [...] DC home with VNA today. Medications to [employer] ([place], [place]) -CW lasix 20 mg PO daily for 7 days. -Same medication regimen otherwise. -Check vaccination status. -Follow-up with PCP in ~ 2 weeks. -Follow-up with Cardiology DONAL. -Follow-up with Dr. Galeas in ~ 4 weeks with CXR, EKG, and Echo. DW Attending Surgeon on rounds. Signed: Eda Helms III, MS, PA-C [facility] Section of Cardiothoracic Surgery Date: 12/05/2014 [...] minutes Total timed interventions: 17 minutes Pager: [phone] Gracie Johnson PTA Physical Therapy Rehabilitation Department [...] at discharge. ID: no acute issues Dispo: [facility] Arlene Lin MD Melanie Zabala RN - 12/03/2014 12:34 PM EDT Inc freq of PAC's. notified. 1215: Sust rate of [address] notified. Met ordered. Pt HR back down [...] trin[place] out ID: no acute issues Dispo: [facility] Claudia Gonzalez MD Jennifer Raymundo MD - 12/02/2014 10:58 AM EDT Account Support Specialist Progress Note 24/S: CRYS. Ancona catheter discontinued. OOB to chair. Tolerating chips. [...] pathway Stepdown to floor JENNIFER RAYMUNDO MD 0535 Mayank Calabrese RN - 12/02/2014 6:53 AM [...] shows no CAD, nml coronary anatomy, PAP 30 with CI 3.1. He comesin today to [...] son and 2 grandchildren. 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 Nonsmoker, drinks occasionally. Review of [...] son and 2 grandchildren. 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 Nonsmoker, drinks occasionally. Review of [...] Galeas MD - 12/13/2014 3:25 PM EDT [facility] Operative Note Patient Name: Omar Matthews : [id number] MR#: [id number] Case Date: 12/01/2014 Surgeon: Surgeon(s) and Role: * Ye Galeas MD - Primary * Eduardo Kong PA - Physician City Distribution Clerk * Melanie Aguirre MD Preoperative diagnosis: , [...] Risk/Actual (Adult, Obstetrics) Intervention: Pressure Reduction Devices 12/05/14824 Skin Interventions Pressure Reduction Devices pressure-redistributing mattress [...] Cardiac Output, Decreased (Adult, Obstetrics) Intervention: Functional [place]/Activity Promotion 12/05/141139 Musculoskeletal Interventions Functional [place]/Activity Promotion independence in BADLs promoted;personal routines for BADL/IADL promoted;up in chair for meals promoted Intervention: Self-Care Promotion 12/05/141139 Musculoskeletal Interventions Self-Care Promotion personal routines for BADL/IADL promoted;independence encouraged while providingassistance Goal: Identify Signs and Symptoms and Related Risk Factors Signs and symptoms and related risk factors are identified upon initiation of Human Response Clinical Practice Guideline (CPG) 12/05/141139 Cardiac Output, Decreased Personal Related Risk Factors (Cardiac Output, Decreased) activity, increased or decreased Treatment Related Related Risk Factors (Cardiac Output, Decreased) cardiac surgery/procedure;medication Goal: Adequate Cardiac Output/Effective Tissue Perfusion Patient will demonstrate the desired outcomes. 12/05/141139 Cardiac Output, Decreased (Adult, Obstetrics) Adequate Cardiac [...] Brower RN and fax discharge summery to VNErick. Midsternum incision I/C/D. D/C tele and IV. Consult Note - Noy Ku RN - 12/05/2014 10:38 AM EDT [facility] CARDIAC REHABILITATION Omar Matthews was seen today regarding participation in the outpatient Phase 2 Cardiac Rehabilitation at [facility] . The patient agrees to a [...] Healing Patient will demonstrate the desired outcomes. 12/03/14433 Skin Integrity Impairment, Risk/Actual (Adult, Obstetrics) Skin [...] Healing Patient will demonstrate the desired outcomes. 12/03/14433 Skin Integrity Impairment, Risk/Actual (Adult, Obstetrics) Skin [...] rail to enter. 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 and completely [...] minutes Total timed interventions: 0 minutes Betzy Lazcano PT Pager: [phone] Physical Therapy Rehabilitation Department Brief Op Note - Ye Galeas MD - 12/01/2014 12:30 PM EDT Brief Operative Note Patient Name: Omar Matthews : [id number] MR#: [id number] Case Date: 12/01/2014 Surgeon: Surgeon(s) and Role: * Ye Galeas MD - Primary * Eduardo Kong PA - Physician City Distribution Clerk * Melanie Aguirre MD Preoperative diagnosis: , dilated ascending aorta Postoperative diagnosis: , dilated ascending aorta Procedure(s): AVR 25 TRIFECTA PERICARDIAL, ASCENDING AORTIC REPLACEMENT 28 VASKUTEK GRAFT, CULLEN Anesthesia: General Estimated Blood Loss: CELL SAVER Drains: 2 CHEST TUBES,2A-2V WIRES Disposition: CVCC Condition: STABLE CONDUCT OF CARDIOPULMONARY BYPASS: Venous [...] IMPLANTABLE DEVICES 12/06/2014 12:00 SCAN AM EDT SCRAPPER SCAN 12/06/2014 12:00 AM EDT POTASSIUM Routine [...] 12/02/2014 2:00 AM Result s for this (MC/CGP) EDT procedure are i n the results [...] NELSON ? (Age): 1950(64y) Med Rec#: ? [id number] ?Sex: ?M ? Site Loc: ? [facility] ?Ht / Wt: ??170(cm)/92(kg) Pt. Loc: ?Echo Lab ?BSA: ?2.03 Study Date: ?? 01/16/2015 ?Pt. Type: Outpatient Tape: ? Referring: Eda Wilson Referring: Ye Galeas Reading: Caesar Silva ([id number]) Mine Technician: Isabella Fierro BA [facility] Diagnosis: *S/P heart valve replacement (V42.2) CPT Codes: *Echo Full (27000) *Spectral Doppler (51642) *Color Doppler (13241) BP: ? 125/81 SUMMARY: 1. There is [...] E-wave Vmax ?0.9 ?m/sec ? MV deceleration [id number] ?msec ? MV A-wave Vmax ?0.6 ?m/sec [...] ? Mid-Inferior ?Normal ? Mid-Inferoseptal ?Normal ? [place]-Septal ? Normal ? [place]-Anterior ? Normal ? [place]-Lateral ?Normal ? [place]-Inferior ? Normal ? [place] Diaz-Tip ?Normal ? This report has been electronically sign ed by: _ Caesar Silva MD ? 01/16/2015 15:26: 59 Images reviewed and interpretation aleshia alfaro [facility] Cardiac Ultrasound Laboratory Procedure Note Caesar Silva MD - 01/16/2015 Procedure: Transthoracic Echocardiogram Patient: DYLAN GILL(Age): [birth year](64y) Med Rec#: [id number] Sex: M Site Loc: [facility] Ht / Wt: 170(cm)/92(kg) Pt. Loc: Echo Lab BSA: 2.03 Study Date: 01/16/2015 Pt. Type: Outpati ent Tape: Referring: Eda Wilson Referring: Ye Galeas Reading: Caesar Silva ([id number]) Mine Technician: Isabella Fierro BA, [facility] Diagnosis: *S/P heart valve replacement (V42.2) CPT Codes: *Echo Full (42843) *Spectral Doppler (21582) *Color Doppler (13378) BP: 125/81 SUMMARY: 1. There is normal [...] MV E-wave Vmax 0.9 m/sec MV deceleration epbc325 msec MV A-wave Vmax 0.6 m/sec MV [...] Normal Mid-Posterolateral Normal Mid-Inferior Normal Mid-Inferoseptal Normal [place]-Septal Normal [place]-Anterior Normal [place]-Lateral Normal [place]-Inferior Normal [place]-Tip Normal This report has been electronically sign ed by: _ Caesar Silva MD 01/16/2015 15:26:59 Images reviewed and interpretation ver ied [facility] Cardiac Ultrasound Laboratory Ye Galeas MD ECHO [...] MEDIA MGR SCAN EXT ORDR/RSLT SCAN DOC: SCRAPPER (12/06/2014 12:00 AM EDT) Anatomical Region Laterality Modality Other Narrative This result has an attachment that is no t available. Scanning Provider MEDIA MGR SCAN EXT ORDR/RSLT Potassium (12/05/2014 7:06 AM EDT) P athologist Signature Potassium 3.8 3.5 - 5.0 CERNER mmol/L MILLENNIUM Comment: [...] Organization Address City/State/[place] [address] CERNER MILLENNIUM XR chest routine PA & lateral (12/04/2014 [...] the endotracheal tube and rig ht IJ Ancona-Sury catheter in catheter. Epicardial pacing leads are [...] the endotracheal tube and rig ht IJ Ancona-Sury catheter in catheter. Epicardial pacing leads are [...] (ABNORMAL) Differential, Automated (12/04/2014 4:45 AM EDT) [facility] Method Time Signature Neutrophils % 77.3 [...] Organization Address City/State/[place] [address] CERNER MILLENNIUM (ABNORMAL) Hemogram (12/04/2014 4:45 AM EDT) P athologist Signature WBC 10.8 (H) 4.0 - [...] Organization Address City/State/[place] [address] CERNER MILLENNIUM Basic Metabolic Panel (non-fasting) (12/04/2014 4:45 AM EDT) athologist Signature Glucose Lvl 103 60 - 199 CERNER mg/dL MILLENNIUM Comment: Diabetes: >=200 mg/dL plus symp toms BUN 12 10 - 20 mg/dL CERNER MILLENNIU M Creatinine 1.03 0.80 - 1.50 mg/dL CERNER MILL ENNIUM Comment: Please note that the pediatric reference intervals supplied above were not validated at [facility]. Results from pediatri c patients should be [...] the following links into your internet browser. [email or web address] Specimen Anatomical Collection Method Collection Time Receive d Time (Source) Location / / Volume Laterality Blood specimen 12/04/2014 4:45 AM 015 5:25 (specimen) EDT AM EDT Resulting Agency Comment Spec In Lab Ye Galeas MD CHEMISTRY ORDERABLES Performing Organization Address City/[facility] Code Phon e Number [address] CERNER MILLENNIUM Potassium (12/03/2014 6:10 [...] Galeas MD CHEMISTRY ORDERABLES Performing Organization Address [facility]/ZIP [facility] [place] [facility] Phon e Number [address] CERNER MILLENNIUM POCT Glucose [...] Organization Address City/State/ZIP Code Phon e Number [address] CERNER MILLENNIUM POCT Glucose [...] Organization Address City/State/ZIP Code Phon e Number [address] CERNER MILLENNIUM POCT Glucose [...] Organization Address City/State/[place] [address] CERNER MILLENNIUM POCT Glucose (12/02/2014 12:46 PM EDT) athologist Signature POC Glucose 102 60 - 199 CERNER mg/dL MILLENNIUM Comment: Supplemental ranges: <140 mg/dL before meals <180 mg/dL all other times of the day Specimen Anatomical Collection Method Collection Time Receive d Time (Source) Location / / Volume Laterality Blood specimen 12/02/2014 12:46 5 (specimen) PM EDT 12:46 PM EDT Ye Galeas MD POINT OF CARE TEST ORDERABLE S Performing Organization Address City/State/ZIP Code Phon e Number [address] CERNER MILLENNIUM POCT Glucose (12/02/2014 10:17 AM EDT) athologist Signature POC Glucose 104 60 - 199 CERNER mg/dL MILLENNIUM Comment: Supplemental ranges: <140 mg/dL before meals <180 mg/dL all other times of the day Specimen Anatomical Collection Method Collection Time Receive d Time (Source) Location / / Volume Laterality Blood specimen 12/02/2014 10:17 5 (specimen) AM EDT 10:17 AM EDT Ye Galeas MD POINT OF CARE TEST ORDERABLE S Performing Organization Address City/State/ZIP Code Phon e Number [address] CERNER MILLENNIUM POCT Glucose (12/02/2014 8:22 AM EDT) athologist Signature POC Glucose 111 60 - [...] Organization Address City/State/[place] [address] CERNER MILLENNIUM POCT Glucose [...] Organization Address City/State/ZIP Code Phon e Number [address] CERNER MILLENNIUM (ABNORMAL) Differential, [...] Galeas MD HEMATOLOGY ORDERABLES Performing Organization Address City/[facility]/ZIP Code Phon e Number [address] CERNER MILLENNIUM (ABNORMAL) Hemogram (12/02/2014 [...] Galeas MD HEMATOLOGY ORDERABLES Performing Organization Address City/[facility]/ZIP Code Phon e Number [address] CERNER MILLENNIUM (ABNORMAL) Cardiac Enzymes (12/02/2014 2:00 AM EDT) P athologist Signature Troponin-T 0.72 (H) <=0.03 CERNER ng/mL [employer] Comment: 0.03 ng/mL: Represents the 99th percenti [...] consensus document of the Joint Society of Cardiology/[place] College o f Cardiology Committee for the redefinition of myocardial infarction. ? ?Journal of the [place] College of Cardiology 2000; 36: 959-969] CK, Total 402 (H) 0 - 200 unit/L CERNER MILLENNI UM Specimen Anatomical Collection Method Collection Time Receive d Time (Source) Location / / Volume Laterality Blood specimen 12/02/2014 2:00 AM 015 2:09 (specimen) EDT AM EDT Resulting Agency Comment Spec In Lab Ye Galeas MD CHEMISTRY ORDERABLES Performing Organization Address City/State/[place] [address] CERNER MILLENNIUM Potassium (12/02/2014 2:00 AM EDT) athologist Signature Potassium 4.2 3.5 - 5.0 CERNER mmol/L MILLENNIUM Comment: [...] Galeas MD CHEMISTRY ORDERABLES Performing Organization Address City/[facility]/ZIP Code Phon e Number [address] CERNER MILLENNIUM (ABNORMAL) Glucose, [...] mg/dL should be repeated on a subseq uent day. Diagnosis and Classification of Diabetes Mellitus, Position Statement from the [place] Diabetes Association. ??Diabete s Care, Volume 33, Supplement 1, Aug 2009 Specimen Anatomical Collection Method Collection Time Receive d Time (Source) Location / / Volume Laterality Blood specimen 12/02/2014 2:00 AM 015 2:09 (specimen) EDT AM EDT Resulting Agency Comment Spec In Lab Ye aGleas MD CHEMISTRY ORDERABLES Performing Organization Address City/[facility]/ZIP Code Phon e Number [address] CERNER MILLENNIUM Creatinine (12/02/2014 2:00 AM EDT) athologist Signature Creatinine 1.12 0.80 - 1.50 CERNER mg/dL [facility] Comment: Please note that the pediatric reference intervals supplied above were not validated at [facility]. Results from pediatri c patients should be interpreted in conjunction to the patient's age, height and muscle mass. Estimated GFR >60 >=60 GIOVANNANER GILSON Vázquez Comment: This estimated GFR (eGFR) value was [...] the following links into your internet browser. [email or web address] Specimen Anatomical Collection Method Collection Time Receive d Time (Source) Location / / Volume Laterality Blood specimen 12/02/2014 2:00 AM 015 2:09 (specimen) EDT AM EDT Resulting Agency Comment Spec In Lab Ye Galeas MD CHEMISTRY ORDERABLES Performing Organization Address [facility] Phon e Number [address] CERNER MILLENNIUM BUN (12/02/2014 2:00 AM EDT) P athologist Signature BUN 12 10 - 20 CERNER mg/dL MILLENNIUM Specimen Anatomical Collection Method Collection Time Receive d Time (Source) Location / / Volume Laterality Blood specimen 12/02/2014 2:00 AM 015 2:09 (specimen) EDT AM EDT Resulting Agency Comment Spec In Lab Ye Galeas MD CHEMISTRY ORDERABLES Performing Organization Address [facility] [place] [address] CERNER MILLENNIUM POCT Glucose (12/02/2014 1:59 AM EDT) P athologist Signature POC Glucose 136 60 - [...] Organization Address City/State/ZIP Code Phon e Number [address] CERNER MILLENNIUM POCT Glucose [...] CARE TEST ORDERABLE S Performing Organization Address City/[facility]/ZIP Code Phon e Number [address] CERNER MILLENNIUM POCT Glucose [...] Organization Address City/State/[place] [address] CERNER MILLENNIUM POCT Glucose (12/01/2014 5:16 PM EDT) athologist Signature POC Glucose 158 60 - 199 CERNER mg/dL MILLENNIUM Comment: [...] Organization Address City/State/[place] [address] CERNER MILLENNIUM (ABNORMAL) Hemoglobin (12/01/2014 5:15 PM EDT) P athologist Signature Hemoglobin 12.7 (L) 13.7 - CERNER 17.5 gm/dL MILLENNIUM Comment: Pt had procedure in OR. Specimen Anatomical Collection Method Collection Time Receive d Time (Source) Location / / Volume Laterality Blood specimen 12/01/2014 5:15 PM 015 5:28 (specimen) EDT PM EDT Resulting Agency Comment Spec In Lab Ye Galeas MD HEMATOLOGY ORDERABLES Performing Organization Address City/[facility]/[place] [address] CERNER MILLENNIUM Potassium (12/01/2014 5:15 PM EDT) athologist Signature Potassium 4.2 3.5 - 5.0 CERNER mmol/L MILLENNIUM Comment: [...] Organization Address City/State/[place] [address] CERNER MILLENNIUM (ABNORMAL) BLOOD [...] Organization Address City/State/[place] [address] CERNER MILLENNIUM XR chest [...] MILLENNIUM Hgb Blood Gas 13.4 (L) gm/dL [facility] O2HB Art 97.9 (H) % CERNER MILLENNIUM COHB Art 0.2 % [facility] MILL[facility]UM Comment: Nonsmokers: 0.5-1.5% COHB Smokers: Variable, but usually less than 10% Toxic: 20-30% COHB Lethal: Greater than 60% COHB METHB Art 1.0 % [facility] MILLENNIUM Na Whole Blood 136 mmol/L CERNER MILLENNI UM K Whole Blood 3.8 mmol/L CERNER MILLENNIU M Comment: Please note: Patients with WBC >100,000 may have falsely elevated Potassium levels. Contact the Clinical Chemistry L aboratory if there are any questions. ICa Whole Blood 1.15 (L) mmol/L [facility] MILLENN IUM Comment: Note: ??Total bilirubin higher than 20 m g/dL may lead to falsely low ionized calcium. CL Whole Blood 108 (H) mmol/L CERNER MILLENNI UM Gluc Whole Bld 123 mg/dL [facility] MILLENNI UM Comment: Diabetes: >=200 mg/dL plus symp toms. Lactate WB 1.8 mmol/L [facility] MILLENNIUM FIO2 Art 100 % [facility] MILLENNIUM PF Ratio Art 328 [facility] MILLENNIUM Specimen Anatomical Collection Method Collection Time Receive d Time (Source) Location / / Volume Laterality Blood specimen 12/01/2014 1:31 PM 015 1:31 (specimen) EDT PM EDT Ye Galeas MD CHEMISTRY ORDERABLES Performing Organization Address City/State/[place] [address] [facility] MILLENNIUM EKG 12 Lead (12/01/2014 1:10 PM EDT) Component Value Ref Range Test Analysis Performed Pathologis t Method Time At Signature Ventricular rate 74 BPM MUSE SYSTEM Atrial Rate 74 BPM MUSE SYSTEM P-R Interval 196 ms MUSE SYSTEM QRS Duration 108 ms MUSE SYSTEM Q-T Interval 442 ms MUSE SYSTEM QTC Calculated 490 ms MUSE SYSTEM (Bezet) Calculated P [place] 38 degrees MUSE SYSTEM Calculated R [place] 22 degrees MUSE SYSTEM Calculated T [place] 66 degrees MUSE SYSTEM INTERPRETATION Normal sinus rhythm MUSE SYSTEM Nonspecific T wave abnormality When compared with ECG of 14-NOV-2014 11:56, QT has lengthened Confirmed by MD Juan, Jose Raulila ([id number]) on 12/01/2014 8 :27:03 PM Specimen Anatomical Collection Method Collection Time Receive d Time (Source) Location / / Volume Laterality 12/01/2014 1:10 PM 5 8:27 EDT PM EDT Ye Galeas MD ECG ORDERABLES Performing Organization Address City/[facility]/ZIP Code Phon e Number MUSE SYSTEM Scan, Peripheral Blood (12/01/2014 12:00 PM EDT) Patholo gist Method Time Signature Plat Estimate Decreased [facility] RBC Morphology Normal [facility] Specimen Anatomical Collection Method Collection Time Receive d Time (Source) Location / / Volume Laterality Blood specimen Venous Draw / 12/01/2014 12:00 12/02/19 15 (specimen) Unknown PM EDT 12:07 PM EDT Resulting Agency Comment Spec In Lab Ye Galeas MD HEMATOLOGY ORDERABLES Performing Organization Address City/[facility]/ZIP Code Phon e Number [address] [facility] Thrombin time (12/01/2014 12:00 PM EDT) P athologist Signature Thrombin Time 18 15 - 20 [facility]ER [facility] Specimen Anatomical Collection Method Collection Time Receive d Time (Source) Location / / Volume Laterality Blood specimen Venous Draw / 12/01/2014 12:00 12/02/19 15 (specimen) Unknown PM EDT 12:07 PM EDT Resulting Agency Comment Spec In Lab Ye Galeas MD HEMATOLOGY ORDERABLES Performing Organization Address City/[facility] [place] [address] CERNER [facility] ([facility]NORMAL) Fibrinogen (12/01/2014 12:00 PM EDT) P [...] Organization Address City/State/[place] [address] CERNER MILLENNIUM APTT (12/01/2014 12:00 PM EDT) athologist Signature PTT 33 25 - 35 [...] Galeas MD HEMATOLOGY ORDERABLES Performing Organization Address City/[facility]/ZIP [facility] Phon e Number [address] CERNER MILLENNIUM (ABNORMAL) Prothrombin Time (12/01/2014 12:00 PM EDT) athologist Signature PT 20.1 (H) 12.5 - 15.5 CERNER sec MILLENNIUM Comment: [facility] Transfusion Committee Guidelines: INR less than 2.0, [...] Organization Address City/State/ZIP Code Phon e Number [address] CERNER MILLENNIUM (ABNORMAL) Differential, Automated (12/01/2014 12:00 PM EDT) [facility] Method Time Signature Neutrophils % 88.6 [...] Organization Address City/State/[place] [address] CERNER MILLENNIUM (ABNORMAL) Hemogram [...] 102 (L) 145 - 370 x10(3)/mcL CERNER [place] LLENNIUM RDWSD 42.5 35.0 - 46.0 fL [...] Organization Address City/State/[place] [address] CERNER MILLENNIUM (ABNORMAL) BLOOD GAS 2 ARTERIAL (12/01/2014 11:54 AM EDT) Analysis Performed At Patho logist Time Signature pH Art 7.36 CERNER MILLENNIUM [...] Organization Address City/State/ZIP Code Phon e Number [place] [phone] CERNER MILLENNIUM (ABNORMAL) BLOOD GAS 2 ARTERIAL (12/01/2014 11:30 AM EDT) Analysis Performed At Patho logist [...] Organization Address City/State/[place] [address] CERNER MILLENNIUM (ABNORMAL) BLOOD [...] Galeas MD CHEMISTRY ORDERABLES Performing Organization Address City/[facility]/[place] [address] HALLIE SonavationKIARRAIUM Prepare thawed plasma (12/01/2014 10:45 AM EDT) P athologist Signature Dispensed? Yes CERBUD PERALESENNIUM Specimen Anatomical Collection Method Collection Time Receive d Time (Source) Location / / Volume Laterality Blood specimen 12/01/2014 10:45 5 (specimen) AM EDT 11:23 AM EDT Ye Galeas MD BLOOD BANK ORDERABLES Performing Organization Address City/[facility]/[place] [address] CERNER FELIZIUM Prepare Platelets, Apheresis (12/01/2014 10:45 AM EDT) P athologist Signature Dispensed? Yes CERBUD PERALESBosse ToolsIUM Specimen Anatomical Collection Method Collection Time Receive d Time (Source) Location / / Volume Laterality Blood specimen 12/01/2014 10:45 5 (specimen) AM EDT 11:23 AM EDT Ye Galeas MD BLOOD BANK ORDERABLES Performing Organization Address City/[facility]/[place] [address] CERNER ANGELLAENNIUM (ABNORMAL) Fibrinogen (12/01/2014 10:30 AM EDT) athologist [...] Galeas MD HEMATOLOGY ORDERABLES Performing Organization Address City/[facility]/ZIP Code Phon e Number [address] CERNER MILLENNIUM Platelet count (12/01/2014 10:30 AM EDT) athologist Signature Platelets 164 145 - 370 CERNER x10(3)/mcL [facility] Specimen Anatomical Collection Method Collection Time Receive d Time (Source) Location / / Volume Laterality Blood specimen Venous Draw / 12/01/2014 10:30 12/02/19 15 (specimen) Unknown AM EDT 10:35 AM EDT Resulting Agency Comment Spec In Lab Ye Galeas MD HEMATOLOGY ORDERABLES Performing Organization Address City/[facility] [place] [address] CERNER MILLENNIUM (ABNORMAL) BLOOD GAS 2 ARTERIAL (12/01/2014 10:30 AM EDT) Analysis Performed At Path logist Time Signature pH Art 7.34 (L) [...] Organization Address City/State/[place] [address] CERNER MILLENNIUM Specimen to Pathology (surgical or derm) (12/01/2014 10:14 AM EDT) Specimen Anatomical Collection Method Collection Time Receive d Time (Source) Location / / Volume Laterality AP Specimen 12/01/2014 10:14 12/01/2014 AM EDT 10:14 AM EDT Narrative [facility] M[facility] - 12/01/2014 10:14 AM EDT Specimen requisition ordered. ??Separate Pathology report to follow Ye Galeas MD PATHOLOGY/CYTOLOGY ORDERABLE S Performing Organization Address City/[facility]/ZIP [facility] [place] [address] CERNER MILLENNIUM (ABNORMAL) BLOOD GAS 2 ARTERIAL (12/01/2014 10:03 AM EDT) [facility] Method Time Signature pH Art 7.30 [...] Organization Address City/State/ZIP Code Phon e Number [place] [phone] CERNER MILLENNIUM (ABNORMAL) BLOOD GAS 2 ARTERIAL (12/01/2014 9:30 AM EDT) Analysis Performed At Patho logist Time Signature pH Art 7.40 CERNER MILLENNIUM pCO2 Art 37 mmHg CERNER MILLENNIUM pO2 Art 318 (H) mmHg CERNER MILLENNIUM HCO3 Art 22.1 mmol/L CERNER MILLENNIUM BE Art -2.7 mmol/L CERNER MILLENNIUM Hgb Blood Gas 11.0 (L) gm/dL CERNER MILLENNIUM O2HB Art 98.7 (H) % CERNER MILLENNIUM COHB Art 0.2 % CERNER MILLENNIUM Comment: Nonsmokers: 0.5-1.5% COHB Smokers: Variable, but usually less than 10% Toxic: 20-30% COHB Lethal: Greater than 60% COHB METHB Art 0.4 % CERNER MILLENNIUM Na Whole Blood 133 (L) mmol/L CERNER MILLENNI UM K Whole Blood 4.4 mmol/L CERNER MILLENNIU M Comment: Please note: Patients with WBC >100,000 may have falsely elevated Potassium levels. Contact the Clinical Chemistry L aboratory if there are any questions. ICa Whole Blood 0.90 (Critical) mmol/L CERNER M ILLENNIUM Comment: Noted by instrument technologist. blr Note: ??Total bilirubin higher than 20 m g/dL may lead to falsely low ionized calcium. CL Whole Blood 104 mmol/L CERNER MILLENNI UM Gluc Whole Bld 176 mg/dL CERNER MILLENNI UM Comment: Diabetes: >=200 mg/dL plus symp toms. Specimen Anatomical Collection Method Collection Time Receive d Time (Source) Location / / Volume Laterality Blood specimen 12/01/2014 9:30 AM 015 9:30 (specimen) EDT AM EDT Ye Galeas MD CHEMISTRY ORDERABLES Performing Organization Address City/State/[place] [address] [facility] Surgical Pathology Report (12/01/2014 8:56 AM EDT) Component Value Ref Test Analysis Performed At [facility] Range Method Time Signature Surgical [facility] Pathology ? [facility] Report ? Provider: ?? YE GALEAS Pt. Name: ?? OMAR MATTHEWS ? Acc #: ?[id number] ?Pt. MRN: ?[id number] ? Col Date: ?? 5 ? /Sex: [...] No vegetations are identified grossly. ? Sections/Processing: Photogeologist sections are subm itted for ? decalcification in cassette A1. (R1, for decal) ? B - Labeled/Fixative: Ascending aorta, fresh. ? Quantity/Size: Single, 3.5 cm long x 3.4 cm diameter. ? Tissue Description: P ortion of aortic wall, intact with minimal evidence of ? atherosclerosis. ? Sections/Processing: Photogeologist secti ons are submitted. (R1) ??pps ? ---Clinical Information--- ? Specimen Submitted: ? A - Aortic valve/leaflets ? B - Ascending aorta ? Clinical History: ? , dilated ascending aorta ? [facility] ? Provider: ?? YE GALEAS Pt. Name: ?? OMAR MATTHEWS ? Acc #: ?[id number] ?Pt. MRN: ?[id number] ? Col Date: ?? 5 ? /Sex: ?1950,(64 years),Male ? Rec Date: ?? 12/01/2014 ? LOC: ?[facility] ? SURGICAL PATHOLOGY ? Clinical Diagnosis: ? , dilated ascending aorta Specimen (Source) Anatomical Collection Method Collection Time Re ceived Time Location / / Volume Laterality 12/01/2014 8:56 AM EDT Ye Galeas MD PATHOLOGY/CYTOLOGY ORDERABLE S Performing Organization Address City/[facility]/[place] [address] CERNER ANGELLAENNIUM Specimen to Pathology (surgical or derm) (12/01/2014 8:56 AM EDT) Specimen Anatomical Collection Method Collection Time Receive d Time (Source) Location / / Volume Laterality AP Specimen 12/01/2014 8:56 AM 5 8:56 EDT AM EDT Narrative CERNER MILLENNIUM - 12/01/2014 8:56 AM E DT Specimen requisition ordered. ??Separate Pathology report to follow Ye Galeas MD PATHOLOGY/CYTOLOGY ORDERABLE S Performing Organization Address City/[facility]/[place] [address] CERNER MILLENNIUM (ABNORMAL) BLOOD GAS 2 ARTERIAL (12/01/2014 8:08 AM EDT) Analysis Performed At Patho logist Time Signature pH Art 7.46 (H) CERNER MILLENNIUM pCO2 Art 33 (L) mmHg CERNER MILLENNIUM pO2 Art 436 (H) mmHg CERNER MILLENNIUM HCO3 Art 22.6 mmol/L CERNER MILLENNIUM BE Art -1.2 mmol/L CERNER MILLENNIUM Hgb Blood Gas 14.4 gm/dL [facility] MILL[facility]UM O2HB Art 99.0 (H) % CERNER MILLENNIUM COHB Art 0.6 % [facility] MILLENNIUM Comment: Nonsmokers: 0.5-1.5% COHB Smokers: Variable, but usually less than 10% Toxic: 20-30% COHB Lethal: Greater than 60% COHB METHB Art 0.2 % [facility] MILLENNIUM Na Whole Blood 141 mmol/L [facility] MILLENNI UM K Whole Blood 3.6 mmol/L CERNER MILLENNIU M Comment: Please note: Patients with WBC >100,000 may have falsely elevated Potassium levels. Contact the Clinical Chemistry L aboratory if there are any questions. ICa Whole Blood 1.17 mmol/L [facility] MILLENN IUM Comment: Note: ??Total bilirubin higher than 20 m g/dL may lead to falsely low ionized calcium. CL Whole Blood 106 mmol/L [facility] MILLENNI UM Gluc Whole Bld 96 mg/dL [facility] MILLENNI UM Comment: Diabetes: >=200 mg/dL plus symp toms. Specimen Anatomical Collection Method Collection Time Receive d Time (Source) Location / / Volume Laterality Blood specimen 12/01/2014 8:08 AM 015 8:08 (specimen) EDT AM EDT Ye Galeas MD CHEMISTRY ORDERABLES Performing Organization Address City/[facility]/[place] [address] [facility] Prepare RBC (12/01/2014 6:40 AM EDT) P athologist Signature Dispensed? Yes [facility] Specimen Anatomical Collection Method Collection Time Receive d Time (Source) Location / / Volume Laterality Blood specimen 12/01/2014 6:40 AM 015 6:40 (specimen) EDT AM EDT Ye Galeas MD BLOOD BANK ORDERABLES Performing Organization Address City/[facility]/[place] [address] [facility] POCT Glucose (12/01/2014 6:22 AM EDT) P athologist Signature POC Glucose 87 60 - 199 [facility] mg/dL [facility] [...] Organization Address City/State/ZIP Code Phon e Number [place] [phone]OS[address] [facility] documented in this encounter Visit Diagnoses Not on filedocumented in this encounter Administered Medications Inactive Administered Medications - up to 3 most recent administrations Medication Order MAR Action Action Date Dose Rate Site calcium chloride injection Given 12/01/2014 11:25 AM EDT 1 g ONCE PRN, Starting on Sirisha 12/01/14 at 1125, Until Sirisha 12/01/14 at 1257, Intra-Operative (Intra-Procedure) cardioplegic solution (PLEGISOL) induction Given 12/01/2014 9:23 AM EDT 300 mLs solution ONCE PRN, Starting on Sirisha 12/01/14 at 0923, Until Sirisha 12/01/14 at 1257, Intra-Operative (Intra-Procedure) ceFURoxime (ZINACEF) injection 1.5 g Given 12/01/2014 9:13 AM EDT 1 g ONCE PRN, Starting on Sirisha 12/01/14 at 0913, Until Sirisha 12/01/14 at 1257, Intra-Operative (Intra-Procedure), Routine electrolyte-R (PH 7.4) (NORMOSOL) inject ion Given 12/01/2014 11:46 AM EDT 1.5 L ONCE PRN, Starting on Sirisha 12/01/14 at 1146, Until Sirisha 12/01/14 at 1257, Intra-Operative (Intra-Procedure) heparin (porcine) injection Given 12/01/2014 10:36 AM EDT 10,000 Units ONCE PRN, Starting on Sirisha 12/01/14 at 0913, Until Sirisha 12/01/14 at 1257, Intra-Operative (Intra-Procedure), Routine Given 12/01/2014 9:13 AM EDT 5,000 Units lidocaine (PF) (XYLOCAINE) 100 mg/5 mL (2 %) Given 11:25 AM EDT 200 mg injection ONCE PRN, Starting on Sirisha 415 at 1125, Until Sirisha 415 at 1257, Intra-Operative (Intra-Procedure), Routine magnesium sulfate 4 mEq/mL (50 %) inject ion Given 12/01/2014 11:25 AM EDT 2 g ONCE PRN, Starting on Sirisha 415 at 1125, Until Sirisha 415 at 1257, Intra-Operative (Intra-Procedure), Routine mannitol (50 grams and over) 100 g/500 mL Given 12/01/2014 11:53 AM EDT 100 g (20%) infusion ONCE PRN, Starting on Sirisha 415 at 1153, Until Sirisha 12/01/14 at 1257, Intra-Operative (Intra-Procedure) vancomycin (VANCOCIN) injection Given 12/01/2014 12:13 PM EDT 1 g 19- Surgical Site ONCE PRN, Starting on Sirisha 15 at 1213, Until Sirisha 15 at 1257, Intra-Operative (Intra-Procedure), Routine documented in this encounter Active and Recently Administered Medications Times are shown in EDT. Scheduled Medication Order 12/03/2014 12/04/2014 12/05/2014 acetaminophen (TYLENOL) tablet 1,000 mg 0534 (Given - Provider: Elizabeth Duvall RN)1207 (Given - Provider: Melanie Zabala RN)1736 (Given - Provider: Melanie Zabala RN)2337 (Given - Provider: Elizabeth Duvall RN) 0543 (Given - Provider: Elizabeth Duvall RN)1119 (Given - Provider: Melanie Zabala RN)1719 (Given - Provider: Melanie Zabala RN)2354 (Given - Provider: Terry Pereira RN) 0552 (Given - Provider: Terry Pereira RN)1229 (Given - Provider: Ernesto Pate RN) 1,000 mg, Oral, EVERY 6 HOURS SCHEDULED, First dose on Fri12/01/14 at 1400, Until Discontinued, For pain when taking by mouth, Routine aspirin chewable tablet 81 mg 0846 (Given - Provider: Gage Zabala RN) 0826 (Given - Provider: Melanie Zabala, STUART) 0821 (Given - Provider: Ernesto Pate, STUART) 81 mg, Oral, DAILY, First dose on 08/18 at 0900, Until Discontinued, Start on post-op day 1 in the AM., Routine chlorhexidine (PERIDEX) 0.12 % oral solution 15 mL (CA NCELED) 09 (Given - Provider: Melanie Zabala, STUART)2019 (Given - Provider: Elizabeth Duvall RN) 09 (Given - Provider: Melanie Zabala RN)221 (Given - Provider: Terry Pereira RN) 0822 (Given - Provider: Ernesto Pate, STUART) 15 mL, Oral, EVERY 12 HOURS SCHEDULED (2 times per day), First dose on Fri12/01/14 at 2100, Until Discontinued, [place] teeth., Routine esomeprazole (NexIUM) capsule 40 mg 0843 (Given - Provider: Melanie Zabala RN) 0826 (Given - Provider: Melanie Zabala RN) 0820 (Given - Provider: Ernesto Pate, STUART) 40 mg, Oral, DAILY, First dose on Fri at 1400, Until Discontinued, If unable to take PO, may give IV, Routine furosemide (LASIX) injection 20 mg (CANCELED) 0840 (Gi neal - Provider: Melanie Zabala RN)1732 (Given - Provider: Melanie Zabala, STUART) 0822 (Given - Provider: Melanie Zabala, STUART)1715 (Given - Provider: Melanie Zabala, STUART) 0821 (Given - Provider: Ernesto Pate, STUART) 20 mg, Intravenous, 2 TIMES DAILY, First dose on Fri12/02/14 at 1100, Until Discontinued, Routine magnesium hydroxide (MILK OF MAGNESIA) oral suspension 10 mL (CANCELED) 0845 (Given - Provider: Melanie Zabala RN) 0826 (Given - Provider: Melanie Zabala RN) 0821 (Given - Provider: Ernesto Pate, RN) 10 mL, Oral, DAILY, First dose on 09/18 at 0900, Until Discontinued, Post- op day 2. Do not use with renal insufficiency., Routine meTOPROLOL tartrate (LOPRESSOR) tablet 25 mg 0848 (Giv en - Provider: Melanie Zabala, RN)2018 (Given - Provider: Elizabeth Duvall, STUART) 0826 (Given - Provider: Melanie Zabala RN)2018 (Given - Provider: Terry Pereira, RN) 0820 (Given - Provider: Ernesto Pate, RN) 25 mg, Oral, EVERY 12 HOURS SCHEDULED (2 times per day), First dose on Fri12/03/14 at 0915, Until Discontinued, Routine potassium chloride (K-DUR/KLOR-CON) extended release t ablet 20 mEq 0845 (Given - Provider: Melanie Zabala, RN)2018 (Given - Provider: Elizabeth Duvall, STUART) 0826 (Given - Provider: Melanie Zabala, STUART)2018 (Given - Provider: Terry Pereira, RN) 0820 (Given - Provider: Ernesto Pate, RN) 20 mEq, Oral, 2 TIMES DAILY, First dose on Fri12/02/14 at 1200, Until Discontinued, Routine potassium chloride (K-DUR/KLOR-CON) extended release tablet 20 mEq (COMPLETED) 1057 (Given - Provider: Ernesto Pate, RN) 20 mEq, Oral, ONCE, 1 dose, Fri12/05/14 a t 0930, 20 mEq tablet may be dissolved in water for administration, Routine senna-docusate (PERICOLACE) 8.6-50 mg per tablet 2 tab let 2100 (Not Given - Provider: Elizabeth Duvall, STUART - Reason: Patient/family refused) 2099 (Not Given - Provider: Terry Pereira RN [...] Contraindicated)1915 (Given - Provider: Melanie Zabala RN) 0315 (Not Given - Provider: Terry Pereira RN - Reason: See comment)1058 (Given - Provider: Ernesto Pate RN) 5 mL, Intravenous, EVERY 8 HOURS, First [...] Routine documented in this encounter Care Teams Support Staff Relationship Specialty Start Date End Date Eda Wilson MD PCP - General 06/26/10 02/20/[address] [place] [id number] documented as of this encounter
--- OUTSIDE RECORDS SUMMARY | 2022-07-05 02:50 | XMS_ITS | Encounter Summary ---
:1950 Author Organization [facility] Address [facility] [place] [address] Care Team Providers Name Role Phone Jacky Nur MD Primary Care Provider Encounter Details Date Type Department Care Team Description 11/14/2014 Clinical Support [place] [facility] [place]; [facility] Ascending aorta dilatation; [place] [address] Social History Tobacco Use Types Packs/Day Years Used Date Smoking Tobacco: Never Smokeless Tobacco: Never Alcohol Use Standard Drinks/Week Comments Yes 2 (1 standard drink = 0.6 oz pure alcoho l) occassional Sex Assigned at Date Recorded Not on file documented as of this encounter Progress Notes Arlene Kelsey RN - 11/14/2014 11:42 AM EDT PAT questionnaire reviewed with patient and , Karen while in Pre Admission testing. Pt has had previous anesthesia experience with no complications. Pre- operative instruction booklet reviewed. Given Hibiclens with written and verbal discharge Instructions. Incentive spirometer given and patient demonstrates good technique. Discussed Advance Directives and given [place] brochures to complete. Patient verbalizes a good understanding of all information reviewed. PLAN: Testing: Blood work, Type & screen Special medication instructions: n/a Procedure date: November 24, [address] Alonzo. Not booked at this time. documented in this encounter Plan of Treatment Not on filedocumented as of this encounter Procedures Procedure Name Priority Date/Time Associated Diagnosis Comme nts EKG 12-LEAD Routine 11/14/2014 11:56 AM Aortic steno sis Results for this EDT Ascending aorta procedure ar e in dilatation the results Essential hypertension secti on. documented in this encounter Results EKG 12 Lead (11/14/2014 11:56 AM EDT) Component Value Ref Range Test Analysis Performed Pathologis t Method Time At Signature Ventricular rate 53 BPM MUSE SYSTEM Atrial Rate 53 BPM MUSE SYSTEM P-R Interval 160 ms MUSE SYSTEM QRS Duration 110 ms MUSE SYSTEM Q-T Interval 464 ms MUSE SYSTEM QTC Calculated 435 ms MUSE SYSTEM (Bezet) Calculated P Dawn 15 degrees MUSE SYSTEM Calculated R Dawn -6 degrees MUSE SYSTEM Calculated T Dawn 44 degrees MUSE SYSTEM INTERPRETATION Sinus bradycardia MUSE SY STEM Incomplete right bundle branch block Borderline ECG When compared with ECG of 07-NOV-2014 08:35, No significant change was found Confirmed by MD ANTWAN, TITO ([id number]) on 11/14/2014 6:07:02 PM Specimen Anatomical Collection Method Collection Time Receive d Time (Source) Location / / Volume Laterality 11/14/2014 11:56 11/14/2014 6:07 AM EDT PM EDT Tay Alonzo MD ECG ORDERABLES Performing Organization Address City/State/ZIP Code Phon e Number MUSE SYSTEM documented in this encounter Visit Diagnoses Diagnosis Aortic stenosis Aortic valve disorders Ascending aorta dilatation Thoracic aortic ectasia Essential hypertension Unspecified essential hypertension documented in this encounter Care Teams Store Assistant Relationship Specialty Start Date End Date Jacky Nur MD PCP - General 06/26/10 02/20/[address] [place] [address] [place] [address] documented as of this encounter
--- OUTSIDE RECORDS SUMMARY | 2022-07-05 02:50 | XMS_ITS | Encounter Summary ---
:1950 Author Organization [facility] Address [facility] [place] [address] Care Team Providers Name Role Phone Jacky Nur MD Primary Care Provider Encounter Details Date Type Department Care Team Description 11/14/2014 Office Visit Cardiac Surgery at Tay [facility] Aort ic stenosis; [facility] [place] Sandra Ascending aorta dilatation; [facility] [address] [place] CARDIOTHORACIC [id number] SURGERY [phone] [place], [place] [address] Social History Tobacco Use Types Packs/Day Years Used Date Smoking Tobacco: Never Smokeless Tobacco: Never Alcohol Use Standard Drinks/Week Comments Yes 2 (1 standard drink = 0.6 oz pure alcoho l) occassional Sex Assigned at Date Recorded Not on file documented as of this encounter Last Filed Vital Signs Vital Sign Reading Time Taken Comments Blood Pressure 120/80 11/14/2014 9:04 AM EDT Pulse 51 11/14/2014 9:04 AM EDT Temperature - - Respiratory Rate - - Oxygen Saturation 99% 11/14/2014 9:04 AM EDT Inhaled Oxygen Concentration - - Weight 92.5 kg (204 lb) 11/14/2014 9:04 AM EDT Height 170.2 cm (5' 7) 11/14/2014 9:04 AM EDT Body Mass Index 31.95 11/14/2014 9:04 AM EDT documented in this encounter Progress Notes Tay Alonzo MD - 11/14/2014 10:37 AM EDT I was asked to see [...] discuss surgical valve replacement. No Known Allergies Outpatient Prescriptions Marked as Taking for the 11/14/14 encounter (Office Visit) with Tay Alonzo MD Medication Sig Dispense Refill ??? metoprolol [...] son and 2 grandchildren. 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 Nonsmoker, drinks occasionally. Review of [...] replacement. He understands the procedure and risks. Consent signed today. He would like surgery DONAL, as this chanel slow time of year for him. documented in this encounter Miscellaneous Notes Addendum Note - Richmond Rawls - 11/14/2014 11:29 AM EDT Addended by: RICHMOND RAWLS on: 11/14/2014 11:29 AM Modules accepted: Orders documented in this encounter Plan of Treatment Not on filedocumented as of this encounter Procedures Procedure Name Priority Date/Time Associated Diagnosis Comme nts HEMOGRAM Routine 11/14/2014 11:46 Aortic stenosis Results for this AM EDT Ascending aorta procedure ar e in dilatation the results Essential section. hypertension DIFFERENTIAL, Routine 11/14/2014 11:46 Aortic stenosis Results for this AUTOMATED AM EDT Ascending aorta procedure ar e in dilatation the results Essential section. hypertension TYPE AND SCREEN, Routine 11/14/2014 11:46 Aortic stenosi s SDP (FUTURE AM EDT Ascending aorta SURGERY, [facility] SAME dilatation DAY PROGRAM ONLY) Essential hypertension ABO/RH TYPING Routine 11/14/2014 11:46 Aortic stenosis Results for this AM EDT Ascending aorta procedure ar e in dilatation the results Essential section. hypertension CBC (WITH DIFF) Routine 11/14/2014 11:46 Aortic stenosis AM EDT Ascending aorta dilatation Essential hypertension ANTIBODY SCREEN Routine 11/14/2014 11:46 Aortic stenosis Results for this AM EDT Ascending aorta procedure ar e in dilatation the results Essential section. hypertension BASIC METABOLIC Routine 11/14/2014 11:46 Aortic stenosis Results for this PANEL (NON-FASTING) AM EDT Ascending aorta proce dure are in dilatation the results Essential section. hypertension @REPLACE AORTIC Routine 11/14/2014 10:37 VALVE, OPEN, W\CPB, AM EDT W\PROSTHETIC VALVE documented in this encounter Results XR chest routine PA & lateral (11/14/2014 12:13 PM EDT) Anatomical Region Laterality Modality Chest N/A Radiographic Imaging Specimen (Source) Anatomical Collection Method Collection Time Re ceived Time Location / / Volume Laterality 11/14/2014 12:13 PM EDT Impressions 11/14/2014 1:22 PM EDT IMPRESSION: Aortic valve calcification consistent with stenosis. No acute cardiopulmonary pathology identified. Narrative 11/14/2014 1:22 PM EDT EXAMINATION: CHEST ROUTINE 2 VIEWS CLINICAL HISTORY: preop AVR, possible as cending aortic replacement TECHNIQUE: PA and lateral views of the c hest. ? COMPARISON: None. FINDINGS: The lungs appear clear. Top no rmal cardiac silhouette with calcifications in the region of the aort ic valve visible on the lateral projection, compatible with aortic steno sis. Mild tortuosity of the thoracic aortic contour. The anne marie, pulmonary vess els, and pleura are within normal limits. No significant osseous findings are seen. Procedure Note Mae Ball MD - 11/14/2014Formatt ing of this note might be different from the original. EXAMINATION: CHEST ROUTINE 2 VIEWS CLINICAL HISTORY: preop AVR, possible as cending aortic replacement TECHNIQUE: PA and lateral views of the c hest. COMPARISON: None. FINDINGS: The lungs appear clear. Top no rmal cardiac silhouette with calcifications in the region of the aort ic valve visible on the lateral projection, compatible with aortic steno sis. Mild tortuosity of the thoracic aortic contour. The anne marie, pulmonary vess els, and pleura are within normal limits. No significant osseous findings are seen. IMPRESSION IMPRESSION: Aortic valve calcification c onsistent with stenosis. No acute cardiopulmonary pathology identified. Tay Alonzo MD IMG DX ORDERABLES EKG 12 Lead (11/14/2014 11:56 AM EDT) Component Value Ref Range Test Analysis Performed Pathologis t Method Time At Signature Ventricular rate 53 BPM MUSE SYSTEM Atrial Rate 53 BPM MUSE SYSTEM P-R Interval 160 ms MUSE SYSTEM QRS Duration 110 ms MUSE SYSTEM Q-T Interval 464 ms MUSE SYSTEM QTC Calculated 435 ms MUSE SYSTEM (Bezet) Calculated P [place] 15 degrees MUSE SYSTEM Calculated R [facility] -6 degrees MUSE SYSTEM Calculated T [facility] 44 degrees MUSE SYSTEM INTERPRETATION Sinus bradycardia MUSE SY STEM Incomplete right bundle branch block Borderline ECG When compared with ECG of 07-NOV-2014 08:35, No significant change was found Confirmed by MD MONCADA JOHN ([id number]) on 11/14/2014 6:07:02 PM Specimen Anatomical Collection Method Collection Time Receive d Time (Source) Location / / Volume Laterality 11/14/2014 11:56 11/14/2014 6:07 AM EDT PM EDT Tay Alonzo MD ECG ORDERABLES Performing Organization Address City/State/ZIP Code Phon e Number MUSE SYSTEM Differential, Automated (11/14/2014 11:46 AM EDT) P athologist Signature Neutrophils % 58.7 % CERNER MILLENNIUM Neutr Abs (ANC) 3.41 1.50 - CERNER 6.30 MILLENNIUM x10(3)/mcL Lymphocytes % 31.7 % CERNER MILLENNIUM Lymphocytes Abs 1.8 1.0 - 3.6 CERNER x10(3)/mcL MILLENNIUM Monocytes % 7.4 % CERNER MILLENNIUM Monocyte Abs 0.4 0.2 - 1.0 CERNER x10(3)/mcL MILLENNIUM Eosinophils % 1.5 % CERNER MILLENNIUM Eosinophils Abs 0.1 0.0 - 0.5 CERNER x10(3)/mcL MILLENNIUM Basophils % 0.5 % CERNER MILLENNIUM Basophils Abs 0.0 0.0 - 0.2 CERNER x10(3)/mcL MILLENNIUM Immature Gran % 0.20 % CERNER MILLENNIUM Comment: Immature granulocytes(IG's)percentage an [...] Location / / Volume Laterality Blood specimen 11/14/2014 11:46 5 (specimen) AM EDT 11:56 AM EDT Resulting Agency Comment Spec In Lab Tay Alonzo MD HEMATOLOGY ORDERABLES Performing Organization Address City/[facility]/[place] [address] [facility] MILLENNIUM Hemogram (11/14/2014 11:46 AM EDT) P athologist Signature WBC 5.8 4.0 - 10.0 CERNER x10(3)/mcL MILLENNIUM RBC 5.43 4.63 - 6.08 CERNER x10(6)/mcL MILLENNIUM Hemoglobin 15.7 13.7 - 17.5 CERNER gm/dL MILLENNIUM Hematocrit 47.1 40.0 - 51.0 CERNER % MILLENNIUM MCV 86.7 79.0 - 92.0 CERNER fL MILLENNIUM MCH 28.9 25.6 - 32.2 CERNER pg MILLENNIUM MCHC 33.3 32.0 - 36.5 CERNER gm/dL MILLENNIUM Platelets 188 145 - 370 CERNER x10(3)/mcL MILLENNIUM RDWSD 42.7 35.0 - 46.0 CERNER fL MILLENNIUM RDWCV 13.5 10.9 - 14.4 CERNER % MILLENNIUM MPV 10.8 9.0 - 12.0 CERNER fL MILLENNIUM Specimen Anatomical Collection Method Collection Time Receive d Time (Source) Location / / Volume Laterality Blood specimen 11/14/2014 11:46 5 (specimen) AM EDT 11:56 AM EDT Resulting Agency Comment Spec In Lab Tay Alonzo MD HEMATOLOGY ORDERABLES Performing Organization Address City/[facility]/[place] [address] [facility] MILLENNIUM Antibody screen (11/14/2014 11:46 AM EDT) Analysis Performed At Patho logist Time Signature Ab Screen Negative CERNER Interp MILLENNIUM Expires at [id number] CERNER 0459 on: MILLENNIUM Comment: Corrected from 11/27/14 12:00 [Unknown] on 11/25/14 09:26 by Karma Huerta Specimen Anatomical Collection Method Collection Time Receive d Time (Source) Location / / Volume Laterality Blood specimen 11/14/2014 11:46 5 (specimen) AM EDT 11:48 AM EDT Resulting Agency Comment Spec In Lab Tay Alonzo MD BLOOD BANK ORDERABLES Performing Organization Address City/[facility]/[place] [address] CERNER MILLENNIUM ABO/Rh Typing (11/14/2014 11:46 AM EDT) P athologist Signature ABORh Type O Pos CERNER MILLENNIUM Specimen Anatomical Collection Method Collection Time Receive d Time (Source) Location / / Volume Laterality Blood specimen 11/14/2014 11:46 5 (specimen) AM EDT 11:48 AM EDT Resulting Agency Comment Spec In Lab Tay Alonzo MD BLOOD BANK ORDERABLES Performing Organization Address City/[facility]/[place] [address] CERNER MILLENNIUM Basic Metabolic Panel (non-fasting) (11/14/2014 11:46 AM EDT) athologist Signature Glucose Lvl 93 60 - 199 CERNER mg/dL MILLENNIUM Comment: Diabetes: >=200 mg/dL plus symp toms BUN 16 10 - 20 mg/dL CERNER MILLENNIU M Creatinine 1.23 0.80 - 1.50 mg/dL CERNER MILL ENNIUM Comment: Please note that the pediatric reference intervals supplied above were not validated at [facility]. Results from pediatri c patients should be interpreted in conjunction to the patient's age, height and muscle mass. Sodium 141 135 - 145 mmol/L CERNER MICHEL NIUM Potassium 4.1 3.5 - 5.0 mmol/L CERNER MICHEL NIUM Comment: Please note: ??Patients with WBC >100,00 0 may have falsely elevated Potassium levels. ??For accurate Potassium quantif ication in these patients send serum separator tube (gold top) for subsequent determinations. ??Contact the Clinical Chemistry Laboratory if there are any qu estions. Chloride 102 98 - 107 mmol/L CERNER MILLENN IUM CO2 25 22 - 31 mmol/L HALLIE PIPERI UM Anion Gap 14 5 - 15 mmol/L HALLIE PIPERIU M Calcium 9.4 8.5 - 10.5 mg/dL HALLIE PERALESEN NIUM Estimated GFR 60 >=60 HALLIE PIPERIU M Comment: This estimated GFR (eGFR) value [...] the following links into your internet browser. [email or web address] Specimen Anatomical Collection Method Collection Time Receive d Time (Source) Location / / Volume Laterality Blood specimen 11/14/2014 11:46 5 (specimen) AM EDT 11:56 AM EDT Resulting Agency Comment Spec In Lab Tay Alonzo MD CHEMISTRY ORDERABLES Performing Organization Address City/State/[place] [address] HALLIE SCOTT documented in this encounter Visit Diagnoses Diagnosis Aortic stenosis Aortic valve disorders Ascending aorta dilatation Thoracic aortic ectasia Essential hypertension Unspecified essential hypertension Aortic stenosis Aortic valve disorders Ascending aorta dilatation Thoracic aortic ectasia Essential hypertension Unspecified essential hypertension documented in this encounter Care Teams Neck Skewer Relationship Specialty Start Date End Date Jacky Nur MD PCP - General 06/26/10 02/20/[address] [place] [address] [place] [address] documented as of this encounter
--- OUTSIDE RECORDS SUMMARY | 2022-07-05 02:50 | XMS_ITS | Encounter Summary ---
:1950 [place] [address] Care Team Providers Name Role Phone Jacky Nur MD Primary Care Provider Encounter Details Date Type Department Care Team Description 11/07/2014 Hospital Encounter Same Day Program at Perez Brandon MD Aortic stenosis [facility] CARDIOLOGY DE PT. [place], [place] [id number] [place] [address] [phone] (Work) [phone] Social History Tobacco Use Types Packs/Day Years Used Date Smoking Tobacco: Never Smokeless Tobacco: Never Alcohol Use Standard Drinks/Week Comments Yes 2 (1 standard drink = 0.6 oz pure alcoho l) occassional Sex Assigned at Date Recorded Not on file documented as of this encounter Last Filed Vital Signs Vital Sign Reading Time Taken Comments Blood Pressure 128/58 11/07/2014 2:22 PM EDT Pulse 58 11/07/2014 2:22 PM EDT Temperature 36.6 ??C (97.9 ??F) 11/07/2014 10:53 AM EDT Respiratory Rate 18 11/07/2014 1:46 PM EDT Oxygen Saturation 100% 11/07/2014 1:46 PM EDT Inhaled Oxygen Concentration - - Weight 90.7 kg (200 lb) 11/07/2014 7:54 AM EDT Height 170.2 cm (5' 7.01) 11/07/2014 7:54 AM EDT Body Mass Index 31.32 11/07/2014 7:54 AM EDT documented in this encounter Discharge Summaries Mil Brandon MD - 11/07/2014 9:48 AM EDT Discharge Summary Patient Name: Po Matthews Patient Age: 64 y.o. Language: Malian Race: White Ethnicity: Not nor Admit date: 11/07/2014 Discharge date and time: 11/07/2014 1500 Attending Physician: Mil Brandon MD Discharge Physician: Mil Stiles MD Follow-up Recommendations for Providers: The patient had only mild coronary artery disease in the proximal LAD and mid RCA, and was otherwisewithout significant coronary artery disease. His ascending aortic diameter measured 4.5 cm on aortography. He has an appointment with Dr. Alonzo (cardiothoracic surgery) on 11/14/2014. Inpatient Provider Contact Information: Mil Brandon MD Chua Chiaco, John Michael S, MD Clinic Pager #[phone] Discharge Diagnoses (Hospital Problems) and Secondary Diagnoses (Chronic Problems): Active Hospital Problems Diagnosis ??? Aortic stenosis Progressvie NYHA Class II DAWN Cardiac catheterization 11/07/14: RAP- PAP- PCWP- CO/CI- ; ascending aorta- cm, coronary Echocardiography 09/30/14: LVEF 65%, no RWMA, LVH, [...] 3,8 cm ascendingaorta ??? Hypertension, essential, benign Resolved Hospital Problems Diagnosis Date Resolved No resolved problems to display. There are no active non-hospital problems to display for this patient. Operations/Major Procedures: Cardiac catheterization 11/07/14: RAP-9 PAP-/06/22 PCWP-13 CO/CI-6.67/3.30; ascending aorta- 4.5 cm,mild disease prox LAD and mid RCA, no significant coronary artery disease History of Presentation: The patient is a 64-year-old man with a history of aortic stenosis and hypertension presenting for preoperative evaluation for aortic valve replacement. Over the past year, the patient has noted some decline of his functional status, and has had occasional episodes of exertional chest pain and dyspnea. He remains remarkably fit however, and was able to walk 4 miles yesterday. He has had a murmur for most of his life. Echocardiography on 09/30/2014 documented an ejection fraction of 65% with mild left ventricular hypertrophy, no wall motion abnormalities, severe aortic stenosis (valve area 0.6-0.7 cm??, mean gradient 52 mmHg, DOI 0.26), trivial aortic insufficiency, and moderate dilatation of the ascending aorta measuring 4.0 cm. Aortic valve replacement was discussed, and the patient was [facility] for [facility] cardiac catheter[facility]. Hospital Course: The patient presented for left and right heart catheterization on 11/07/2014. This demonstrated mildcoronary artery disease of his proximal LAD and RCA. His ascending aortic diameter was 4.5 cm on aortography. After a brief period of observation, the patient was discharged in stable condition. Functional and Cognitive Status: Ambulatory and alert Discharge to: Home Updated Allergies/ADRs: No Known Allergies Immunizations Given this Hospitalization: There is no immunization history on file for this patient. Discharge Medications: Your Medications UNREVIEWED medications - Discuss With Your Provider Dose Details lisinopril-hydrochlorothiazide 10-12.5 mg Tab Commonly known as: PRINZIDE;ZESTORETIC Take 1 tablet by mouth daily. 1 tablet Refills: 0 metoprolol tartrate 25 mg Tab Commonly known as: LOPRESSOR Take 25 mg by mouth daily. Takes 1/2 tablet 25 mg Refills: 0 Smoking Status at Discharge: History Smoking status ??? Never Smoker Smokeless tobacco ??? Never Used Instructions Given to Patient at Discharge: There are no Patient Instructions on file for this visit. General Instructions None Future Appointments Provider Department Dept Phone 11/14/2014 9:30 AM Tay Alonzo MD Cardiac Surgery [phone] Discharge References/Attachments None Mil Hernández MD Pager #[phone] Mil Brandon MD documented in this encounter Discharge Instructions Discharge InstructionsMil Stiles MD - 11/07/2014 9:51 AM EDT Activity If you are discharged the same day as your procedure, do not drive yourself home. Arrange to have another person drive. You may walk around when you get home, but keep your activity at a minimum until the morning. Do not bend over, strain, or lift heavy objects for 24 hours after the procedure. Do not participatein active sports for 48 hours. You may engage in sexual activity after 48 hours. These restrictions will not apply if the catheter was placed in a blood vessel in your arm. Catheter Insertion Area Care Take the band-aid off the catheter insertion area the morning following the procedure. You may take a shower if you wish. Wash the area with soap and water. Look for signs of infection over the next several days. A little spot of blood at the catheter insertion area is not unusual. A bruise or small lump under the skin is normal; they generally disappear in 3-4 days. For the first several days at home if you cough or sneeze, hold your groin to help prevent bleeding. Expect some mild tenderness over the area where the catheter was inserted. You will notice this after the local anesthetic (numbing medicine) wears off. This should improve during the 24-48 hours afterthe procedure. Take tylenol if needed. Contact your doctor if the discomfort worsens. Problems to Watch For If there is bright red blood flowing from the catheter insertion area: *stop what you are doing and lie down *Hold pressure steadily on the area for 15 minutes *Call for Help *If the bleeding does not stop in 15 minutes call 911 for an ambulance. If there is swelling with black and blue color at the catheter insertion area, there may be bleeding inside. Contact the doctor if there is any increase in size. Look at the insertion site for the first few days at home. Signs of infection are: *redness *Swelling *Yellow, white, green or brown foul smelling drainage. *increased soreness If you think there is an infection, take your temperature. Then call your doctor. The limb on the side where you had your catheterization should look and feel normal in its color, sensation, and temperature. If your leg becomes cool, pale, blue or changing color with numbness and tingling, contact your doctor. If you feel faint or dizzy, lie down with your feet elevated. Have someone call the doctor. If you are alert, drink fluids. How to Deal with Chest pain If you had only the cardiac catheterization, treat any angina or chest discomfort as instructed. Stop what you are doing, and sit or lie down. If prescribed, take nitroglycerin under your tongue. If the angina isn't relieved, take another nitroglycerine in 5 minutes. After another 5 minutes, a third ni troglycerine may be taken. If the angina isn't improved you should call for an ambulance to bring you to the nearest hospital emergency room. If your angina is more frequent or more sever than before, contact your doctor. We usually would not expect to have angina after an angioplasty. If you do get angina, treat it as you did before but also contact your doctor. Return to Work The doctor will usually have told you when to return to work. If you do not perform heavy physical labor, most people can return to work in a few days. Diet Follow your previous diet unless otherwise instructed. Cardiac Risk Factors If you have coronary artery disease, it is important that you help control it by reducing your cardiac risk factors. If you smoke, we urge you to stop now. If you think this is going to be a problem, let us know so that we may help you. We have dieticians who can help you learn about low fat, low cholesterol diet. Cardiac rehabilitation programs can help you set up a regular exercise program. Work with your doctor if you have high blood pressure or sugar diabetes to keep these under control. Medications Take your usual medications. If you are taking medicines prescribed by your doctor, do not take any [id number] medicines orherbal preparations without first discussing this with your doctor or pharmacist. There is the possibility of side effect and interactions when these are combined. Who to Call with Questions or Problems If there are any questions or problems that you think might be related to your cardiac cath or angioplasty, contact the furniture mover driver apparel fashion designer by calling [facility] at . Patient InstructionsMil Brandon MD - 11/07/2014 9:51 AM EDT Anti-coagulation follow up: NA Call your doctor if: Chest pain, shortness of breath, pain or swelling in legs occurs. If you have non-emergent questions between now and the time of your follow up appointments: During 8am-5pm Friday through Friday call [phone] to speak with a nurse in the cardiology clinic All other times call [phone] and ask to speak to the college sports assistant apparel fashion designer. Return to work: One week Driving: No driving for 48 hours after catheterization. Follow up Appointments: PCP [employer] Repairer Dante Home oxygen therapy: N/A Arrangements for VNA/home care: none documented in this encounter Medications at Time of Discharge Medication Sig Dispensed Refills Start Date End Date metoprolol tartrate Take 25 mg by mouth 0 12/05/2014 (LOPRESSOR) 25 mg Tablet daily. Takes 1/2 tablet lisinopril-hydrochlorothi Take 1 tablet by 0 12/05/2014 azide mouth daily. (PRINZIDE;ZESTORETIC) 10-12.5 mg Tablet documented as of this encounter Progress Notes Beth Medina RN - 11/07/2014 11:03 AM EDT Pt returned from cath labv. No pain, no bleed, no hematoma. Dressing dry to right groin. in to visit. BR until 1335, fluids until 1400. Pt resting comfortably. Pt got oob to br. amb with steady gait. Voided without problem. Pt had venous bleed small amount. Pressure applied for 5 minutes. No bleed, no hematoma noted.nurse from asphalt plant laborer came to see. DR Brandon notified. Stated to keep pt for one more hour and reassess aftrer ambulation. in to visit. D/c info complete with pt and . Both verbalize understanding. Vss. Pulses strong. No further bleedingnoted. Pt amb in halls. No new bleed. Groin soft. No hematoma. Pt dressing for d/c home. Pt and without questions at this time. Will call if any concerns arise. documented in this encounter H&P Notes Иван Hernández, Mil España MD - 11/07/2014 7:45 AM EDT PRE-CARDIAC CATHETERIZATION 24-HOUR UPDATE The patient's history and physical exam have been reviewed and completed. There has been no intervalchange from that of the pre-operative history and physical exam done within the last 30 days (see note by Dr. Mir Howell dated 10/18/2014) Brief History: The patient is a 64-year-old man with a history of aortic stenosis and hypertension presenting for preoperative evaluation for aortic valve replacement. Over the past year, the patient has noted some decline of his functional status, and has had occasional episodes of exertional chest pain and dyspnea. He remains remarkably fit however, and was able to walk 4 miles yesterday. He has had a murmur for most of his life. Echocardiography on 09/30/2014 documented an ejection fraction of 65% with mild left ventricular hypertrophy, no wall motion abnormalities, severe aortic stenosis (valvearea 0.6-0.7 cm??, mean gradient 52 mmHg, DOI 0.26), trivial aortic insufficiency, and moderate dilatation of the ascending aorta measuring 4.0 cm. Aortic valve replacement was discussed, and the patient was referred to [facility] for preoperative cardiac catheterization. Allergies: No Known Allergies Physical Exam BP 122/75 Pulse 56 Temp(Src) 36.6 ??C (97.9 ??F) (Temporal) Resp 16 Ht 170.2 cm (5' 7.01) Wt 90.719 kg (200 lb) BMI 31.32 kg/m2 SpO2 100% Gen: Awake, alert, oriented, not in acute distress Neck: JVP not elevated above the level of the sternal angle. Resp: Clear to auscultation bilaterally CVS: Normal rate, regular rhythm. Diffuse 3/6 systolic, high-pitched murmur. No rubs or gallops. Abd: soft, non-distended. Ext: 2+ bilateral femoral pulses. 2+ radial pulse. No edema. Assessment / Plan: Will proceed with diagnostic left heart catheterization and coronary angiography. The risks and benefits of cardiac catheterization were discussed, including but not limited to , bleeding, infection, stroke, myocardial infarction, need for open heart surgery, arrhythmia, kidneydamage, and damage to entry site. All questions were answered. Signed consent in chart. Mil Hernández MD Interventional Floor Scraper Pager # [phone] documented in this encounter Plan of Treatment Not on filedocumented as of this encounter Procedures Procedure Name Priority Date/Time Associated Comments Diagnosis POINT OF CARE BLOOD Routine 11/07/2014 9:13 AM Re sults for this GAS HISTORICAL EDT procedure are in the results section. EKG 12-LEAD Routine 11/07/2014 8:35 AM Aortic stenosis Result s for this EDT procedure are i n the results section. documented in this encounter Results (ABNORMAL) Point of Care Blood Gas Historical (11/07/2014 9:13 AM EDT) [facility] Method Time Signature POC pH 7.35 7.35 - CERNER 7.45 MILLENNIUM POC PCO2 38 35 - 45 CERNER mmHg MILLENNIUM POC PO2 73 (L) 85 - 104 CERNER mmHg MILLENNIUM POC Base Excess -5.0 (L) -3.0 - 3.0 CERNER mmol/L MILLENNIUM POC HCO3 20.7 20.0 - CERNER 26.0 MILLENNIUM mmol/L POC Sodium 140 135 - 145 CERNER mmol/L MILLENNIUM POC Potassium 3.4 (L) 3.5 - 5.0 CERNER mmol/L MILLENNIUM POC Ionized Ca 1.26 1.15 - CERNER 1.33 MILLENNIUM mmol/L POC Hematocrit 40.0 40.0 - CERNER 51.0 % MILLENNIUM POC Calc Hgb 13.6 (L) 13.7 - CERNER 17.5 gm/dL MILLENNIUM Comment: The calculation of hemoglobin f rom hematocrit assumes a normal MCHC. POC Bgas Loc Physician In Private Practice [facility] [employer] Specimen Anatomical Collection Method Collection Time Receive d Time (Source) Location / / Volume Laterality Blood specimen 11/07/2014 9:13 AM 015 2:35 (specimen) EDT PM EDT Mil Brandon MD CHEMISTRY ORDERABLES Performing Organization Address City/State/[place] [address] [facility] EKG 12 Lead (11/07/2014 8:35 AM EDT) Component Value Ref Range Test Analysis Performed Pathologis t Method Time At Signature Ventricular rate 55 BPM MUSE SYSTEM Atrial Rate 55 BPM MUSE SYSTEM P-R Interval 166 ms MUSE SYSTEM QRS Duration 110 ms MUSE SYSTEM Q-T Interval 476 ms MUSE SYSTEM QTC Calculated 455 ms MUSE SYSTEM (Bezet) Calculated P [place] 12 degrees MUSE SYSTEM Calculated R [place] -5 degrees MUSE SYSTEM Calculated T [place] 27 degrees MUSE SYSTEM INTERPRETATION Sinus bradycardia MUSE SY STEM Otherwise normal ECG No previous ECGs available Confirmed by MD Juan, [facility] ([id number]) on 11/07/2014 12 :58:52 PM Specimen Anatomical Collection Method Collection Time Receive d Time (Source) Location / / Volume Laterality 11/07/2014 8:35 AM 5 EDT 12:58 PM EDT Mil Brandon MD ECG ORDERABLES Performing Organization Address City/[facility] [address]/ZIP Code Phon e Number MUSE SYSTEM documented in this encounter Visit Diagnoses Diagnosis Aortic stenosis - Primary Aortic valve disorders Aortic stenosis Aortic valve disorders Hypertension, essential, benign Essential hypertension, benign documented in this encounter Administered Medications Inactive Administered Medications - up to 3 most recent administrations Medication Order MAR Action Action Date Dose Rate Site dextrose 5% and sodium New Bag 11/07/2014 8:30 AM EDT 100 mL/hr 1 00 mL/hr chloride 0.9% infusion 100 mL/hr, Intravenous, CONTINUOUS, Starting on Fri11/07/14 at 0830, Until Fri11/07/14 at 1436, Cath (Day of Procedure) sodium chloride 0.9% New Bag 11/07/2014 10:01 AM 200 mL/hr 200 mL /hr Left Arm infusion EDT 200 mL/hr, Intravenous, CONTINUOUS, Starting on Fri11/07/14 at 1015, Until 11/07/14 at 1414, Cath (Recovery-Hospital Unit) documented in this encounter Active and Recently Administered Medications Times are shown in EDT. Continuous Medication Order 11/05/2014 11/06/2014 11/07/2014 dextrose 5% and sodium chloride 0.9% infusion (CANCELED) 0830 (New Bag - Provider: Martine Paula RN) 100 mL/hr, at 100 mL/hr, Intravenous, CO NTINUOUS, Starting 11/07/14 at 0830, Until 11/07/14 at 1436, Cath (Day of Procedure) sodium chloride 0.9% infusion () 1001 (New Bag - Provider: Stephanie Asif RN - Comment: over 4 hours, 800 ml total) 200 mL/hr, at 200 mL/hr, Intravenous, CO NTINUOUS, Starting 11/07/14 at 1015, Until 11/07/14 at 1414, Cath (Recovery-Hospital Unit) PRN Medication Order 11/05/2014 11/06/2014 11/07/2014 fentaNYL 50 mcg/mL multi-dose injection (CANCELED) 0904 (Given - Provider: Jacky Bassett, STUART) ONCE PRN, Starting 11/07/14 at 0904, U ntil 11/07/14 at 0935, Intra-Operative (Intra-Procedure), Routine heparin (porcine) injection (CANCELED) 0912 (Given - Provider: Mil Hernández MD) ONCE PRN, Starting 11/07/14 at 0912, U ntil 11/07/14 at 0935, Cath (Intra- Procedure), Routine midazolam (PF) (VERSED) 1 mg/mL multi-dose injection (CANCELED) 0904 (Given - Provider: Jacky Bassett, STUART) ONCE PRN, Starting 11/07/14 at 0904, U ntil 11/07/14 at 0935, Cath (Intra- Procedure), Routine documented in this encounter Care Teams Air Route Traffic Controller Relationship Specialty Start Date End Date Jacky Nur MD PCP - General 06/26/10 02/20/[address] [place] [address] [place] [address] documented as of this encounter
--- OUTSIDE RECORDS SUMMARY | 2022-07-05 02:50 | XMS_ITS | Encounter Summary ---
:1950 Author Organization [facility] [place] [address] Care Team Providers Name Role Phone Jacky Nur MD Primary Care Provider Encounter Details Date Type Department Care Team Description 10/26/2014 Orders Only Cardiology at [facility] Florence Phillips PA [facility] [place] [address] CARDIOLOGY DEPT. [phone] [place], [place] [address] (Wo rk) Social History Tobacco Use Types Packs/Day Years Used Date Smoking Tobacco: Never Assessed Sex Assigned at Date Recorded Not on file documented as of this encounter Plan of Treatment Not on filedocumented as of this encounter Procedures Procedure Name Priority Date/Time Associated Comments Diagnosis CARDIAC CATHETERIZATION Routine 11/09/2014 10:56 Aortic stenos is Results for this AM EDT procedure are i n the results section. documented in this encounter Results CARDIAC CATHETERIZATION (11/09/2014 10:56 AM EDT) Anatomical Region Laterality Modality Other Specimen (Source) Anatomical Location Collection Method / Collectio n Time Received Time / Laterality Volume Narrative 11/07/2014 9:54 AM EDT ?[facility] ? Cardiac Cathete rization/Intervention Report ? Patient Name: Byron, Po ? Procedure Date: 11/07/2014 ? A #: [id number] ? Primary Physician: Aleksandr, Mil F. ? Case #: [id number] ? File Name: [id number] ? Catheterization Order Number: [id number] ? [facility] ? Final Report [place], [place] ? Patient Name: ? Po Byron ?ID#: ?[id number] ? : ?1950 ? Procedure Date: ? November 07, 2014 ?Case #: ? [id number] ? Room: ? 1 ? Case Physician: ? Angel Diallo. ? Start: ?09:11 ?Fellow: ? Mil Cardoza l S Иван Chiaco, ?Admission: ??11/07/2014 ?M.D. ? Referring ? Mir ohara M.D. ? Physicians: ?Jacky Nur M.D. ? Procedures: ?* Coronary Angiography ?* Right Heart Catheterization ?* Insertion Of Flow Directed Ca theter ?* Oximetry ?* Aortic Root Aortogram ?* Vascular Closure Device Deplo yment ?* Access Site Angiography ?* Arterial Blood Gases ?* Aortic Arch Aortography ? History ?Po Matthews is a 64 year old man. He has hypertension. The patient has ?a history of dyspnea with NYHA functional class II. He has aortic ?stenosis. The patient also has a history of an abnormal echocardiogram. ?Prior to the initiation of this procedure, the patient was designated as ?ASA Class III. ? Patient Status at Catheterization: ?The patient presented with: sym ptom unlikely to be ischemic. [place] ?Cardiovascular Society angina c lass was 0. This patient was on beta ?blockers prior to the procedure . No stress or imaging studies were ?performed prior to this procedu re ? Technique: ?A 6Fr sheath was inserted in th e right femoral artery utilizing the ?Seldinger technique. An 8Fr she ath was inserted in the right femoral vein ?utilizing the Seldinger techniq ue. The left coronary artery was injected ?utilizing a 6Fr JL 4 catheter. A 6Fr JR 4 catheter was used to inject the ?right coronary artery. Right he art catheterization was performed ?utilizing a 7Fr Cleveland-Sury kelby ter. Aortic Root was performed with a 6Fr ?Angled pigtail catheter. 2,000 units of heparin were administered. A ?total of 150cc of Omnipaque wer e opened, 132cc of Omnipaque were ?administered and 18cc of Omnipa que were wasted. Radiation: Fluoro time ?was 4.2 minutes, dose area prod uct was 122,153 mGYcm2 and air kerma was ?968 mGY. ?The patient received the follow ing medications prior to and during the ?procedure: Unfractionated Hepar in (any). ? Hemodynamics: ?Right Heart Pressures ? Hemodynamics: ? Syst D iast ? EDP ?a ?v ? m ?RA ? 11 ?10 ? 8 ?RV 32 ?12 ?PA 30 ?11 ?19 ?PCW ?17 ?14 ?13 ? Hemodynamic Profile: ?Profile 1 ? Profile 2 ?CO ? 6.67 ?6.29 ?CI ? 3.30 ?3.11 ?TSR ? 1,103 ? 1,170 ?SVR ? 1,007 ? 1,068 ?TPR ?228 ? 242 ?PVR ?72 ?76 ?Techniq ue ?Thermodilution ?Estimated Leonardo ?Left Heart Pressures ? Resting: ? Syst D iast ? EDP ?a ?v ? m ?Ao 122 ?? 72 ?92 ? Oximetry: ?Location ? % Sat ?Location ?%Sat ?Main Pulmonary Artery ??74.0 ?Ascending Aorta ? 94.0 ? Aortography: ?Comments: ? There were three aortic cusps. There was evidence of aortic valve ? calcification. The ascen ding thoracic aorta was dilated. ? Congenitally abnormal ar otic valve. ? Ascending aorta- 4.5 cm. ? Aortic root 3.6 cm. ? Coronary Angiography: ?Dominance: Right ?Left Main ? The left main was normal . ?Left Anterior Descending ? There was mild diffuse d isease of the proximal segment of the left ? anterior descending eve ry (LAD). ??The LAD was large. ??Distal flow ? was normal. ?Left Circumflex ? The left circumflex (LCX ) was normal. ?Right Coronary Artery ? There was mild diffuse d isease of the mid segment of the right ? coronary artery (RCA). ? ?The RCA was large. ??Distal flow was normal. ? Indication for Selected Procedures: ?Right Heart catheterization was initiated for Aortic valve disorders ?(424.1). ? Vascular Access Angiogram: ?A selective angiogram at the ri ght femoral artery revealed no significant ?obstructive disease. ? Vascular Closure Device: ?A 6 Fr Perclose was deployed at the right femoral artery access site. ?This device was successful. ? Point of Care Testing: ?ABG: ? Arterial Blood gasses we re performed using the I-Stat analyzer at ? 09:13: pH: 7.34, pCO2: 3 7.5, pO2: 73.0, sPO2: 94%, HCO3: 20 on FIO2: ? RA. ?I-Stat: ? I-Stat was performed usi ng the I-Stat analyzer at 09:13: Na+: 140, ? K+: 3.4, iCa++: 1.26, Hc t: 40%, Hb: 13.6. ? Conclusions: ?* Nonobstructive coronary arter y disease ?* Ascending thoracic aortic dil ation was detected ?* Dilated ascending aorta 4.5 c m. ? Complications/Events: ?The patient had no complication s during these procedures. ? Recommendations: ?Based upon the results of this procedure, it was recommended that ?valvular surgery be considered. ?The attending physician was lore t for the entire procedure. ?Dr. Mil Brandon M.D. performed t he coronary angiography, right heart ?catheterization, Cleveland (flow direct ed cath) insertion, oximetry, access site ?angiography, aortography- aortic a rch, ABG, vascular closure device and ?aortic root aortogram. ? Mil Brandon M.D. ? Electronically Signed by: Mil Brandon M.D. ? Report Finalized: 11/07/2014 ??09:49 ? Procedure Note Mil Brandon MD - 11/07/2014 [facility] Cardiac Catheterization/Intervention Re port Patient Name: Po Matthews Procedure Date: 11/07/2014 A #: [id number] Primary Physician: Mil Brandon Case #: [id number] File Name: [id number] Catheterization Order Number: [id number] [facility] Final Report [place], [place] Patient Name: Po Matthews ID#: [id number] : 1950 Procedure Date: November 07, 2014 Case #: [id number] Room: 1 Case Physician: Mil Brandon M.D. Start : 09:11 Fellow: Adm Michael ission: 11/07/2014 Deisy Referring Mir Howell M.D. Physicians: Jacky Nur M.D. Procedures: * Coronary Angiography * Right Heart Catheterization * Insertion Of Flow Directed Catheter * Oximetry * Aortic Root Aortogram * Vascular Closure Device Deployment * Access Site Angiography * Arterial Blood Gases * Aortic Arch Aortography History Po Matthews is a 64 year old man. He has hypertension. The patient has a history of dyspnea with NYHA function al class II. He has aortic stenosis. The patient also has a histor y of an abnormal echocardiogram. Prior to the initiation of this procedu re, the patient was designated as ASA Class III. Patient Status at Catheterization: The patient presented with: symptom unl ikely to be ischemic. [place] Cardiovascular Society angina class was 0. This patient was on beta blockers prior to the procedure. No str ess or imaging studies were performed prior to this procedure Technique: A 6Fr sheath was inserted in the right femoral artery utilizing the Seldinger technique. An 8Fr sheath was inserted in the right femoral vein utilizing the Seldinger technique. The left coronary artery was injected utilizing a 6Fr JL 4 catheter. A 6Fr JR 4 catheter was used to inject the right coronary artery. Right heart cath eterization was performed utilizing a 7Fr Cleveland-Sury catheter. Aor tic Root was performed with a 6Fr Angled pigtail catheter. 2,000 units of heparin were administered. A total of 150cc of Omnipaque were opened , 132cc of Omnipaque were administered and 18cc of Omnipaque were wasted. Radiation: Fluoro time was 4.2 minutes, dose area product was 122,153 mGYcm2 and air kerma was 968 mGY. The patient received the following medi cations prior to and during the procedure: Unfractionated Heparin (any) . Hemodynamics: Right Heart Pressures Hemodynamics: Syst Diast EDP a v m RA 11 10 8 RV 32 12 PA 30 11 19 PCW 17 14 13 Hemodynamic Profile: Profile 1 Profile 2 CO 6.67 6.29 CI 3.30 3.11 TSR 1,103 1,170 SVR 1,007 1,068 TPR 228 242 PVR 72 76 Technique Thermodilution Estimated Leonardo Left Heart Pressures Resting: Syst Diast EDP a v m Ao 122 72 92 Oximetry: Location %Sat Location %Sat Main Pulmonary Artery 74.0 Ascending Ao rta 94.0 Aortography: Comments: There were three aortic cusps. There wa s evidence of aortic valve calcification. The ascending thoracic a yuni was dilated. Congenitally abnormal arotic valve. Ascending aorta- 4.5 cm. Aortic root 3.6 cm. Coronary Angiography: Dominance: Right Left Main The left main was normal. Left Anterior Descending There was mild diffuse disease of the p roximal segment of the left anterior descending artery (LAD). The L AD was large. Distal flow was normal. Left Circumflex The left circumflex (LCX) was normal. Right Coronary Artery There was mild diffuse disease of the m id segment of the right coronary artery (RCA). The RCA was larg e. Distal flow was normal. Indication for Selected Procedures: Right Heart catheterization was initiat ed for Aortic valve disorders (424.1). Vascular Access Angiogram: A selective angiogram at the right femo ral artery revealed no significant obstructive disease. Vascular Closure Device: A 6 Fr Perclose was deployed at the [facility] femoral artery access site. This device was successful. Point of Care Testing: ABG: Arterial Blood gasses were performed us ing the I-Stat analyzer at 09:13: pH: 7.34, pCO2: 37.5, pO2: 73.0, sPO2: 94%, HCO3: 20 on FIO2: RA. I-Stat: I-Stat was performed using the I-Stat a nalyzer at 09:13: Na+: 140, K+: 3.4, iCa++: 1.26, Hct: 40%, Hb: 13. 6. Conclusions: * Nonobstructive coronary artery diseas e * Ascending thoracic aortic dilation wa s detected * Dilated ascending aorta 4.5 cm. Complications/Events: The patient had no complications during these procedures. Recommendations: Based upon the results of this procedur e, it was recommended that valvular surgery be considered. The attending physician was present for the entire procedure. Dr. Mil Brandon M.D. performed the co ronary angiography, right heart catheterization, Cleveland (flow directed ca th) insertion, oximetry, access site angiography, aortography- aortic arch, ABG, vascular closure device and aortic root aortogram. Mil Brandon M.D. Electronically Signed by: Mil Brandon M.D. Report Finalized: 11/07/2014 09:49 Mil Brandon MD CARDIAC CATH ORDERABLES documented in this encounter Visit Diagnoses Diagnosis Aortic stenosis Aortic valve disorders Aortic stenosis Aortic valve disorders documented in this encounter Care Teams Crisis Intervention Specialist Relationship Specialty Start Date End Date Jacky Nur MD PCP - General 06/26/10 02/20/[address] [place] [address] [place] [address] documented as of this encounter
--- OUTSIDE RECORDS SUMMARY | 2022-07-05 02:50 | XMS_ITS | Encounter Summary ---
:1950 [place] [address] Care Team Providers Name Role Phone Jacky Nur MD Primary Care Provider Encounter Details Date Type Department Care Team Description 11/07/2014 Surgery Unified Communications Engineer Rosalva Moeller MD CARDIAC CATHETERIZATION [facility] [place] [address] [place] [address] [phone] (Wo rk) Social History Tobacco Use Types [...] Po Matthews Patient Age: 64 y.o. Language: Mauritanian Race: White Ethnicity: Not nor Admit date: 11/07/2014 Discharge date and time: 11/07/2014 1500 Attending Physician: Mli Brandon MD Discharge Physician: Mil Stiles MD [...] Chiaco, John Michael S, MD Clinic Pager #[phone] Discharge Diagnoses (Hospital Problems) and Secondary Diagnoses [...] patient. Operations/Major Procedures: Cardiac catheterization 11/07/14: RAP-9 PAP-30/06/22 PCWP-13 CO/CI-6.67/3.30; ascending aorta- 4.5 cm,mild disease [...] was discussed, and the [facility]. Hospital Course: The [...] 9:30 AM Tay Alonzo MD Cardiac Surgery [phone] Discharge References/Attachments None Mil Hernández MD Pager #[phone] Mil Brandon MD documented in this encounter [...] by your doctor, do not take any sqaz-uzi-xrvsazp medicines orherbal preparations without first discussing this with your doctor or pharmacist. There is the possibility of side effect and interactions when these are combined. Who to Call with Questions or Problems If there are any questions or problems that you think might be related to your cardiac cath or angioplasty, contact the clinical study manager reconstructive dentist by calling [facility] at . Patient InstructionsMil Brandon MD - 11/07/2014 9:51 AM EDT Anti-coagulation follow up: NA Call your doctor if: Chest pain, shortness of breath, pain or swelling in legs occurs. If you have non-emergent questions between now and the time of your follow up appointments: During 8am-5pm Friday through Friday call [phone] to speak with a nurse in the cardiology clinic All other times call [phone] and ask to speak to the straight pin making machine operator reconstructive dentist. Return to work: One week Driving: No driving for 48 hours after catheterization. Follow up Appointments: PCP Cody Manager Food Beverage Dante Home oxygen therapy: N/A Arrangements for [...] minutes. No bleed, no hematoma noted.nurse from civil laboratory technician came to see. DR Brandon notified. Stated [...] discussed, and the patient was referred to [facility] for preoperative cardiac catheterization. Allergies: No Known [...] consent in chart. Mil Hernández MD Interventional Book Solicitor Pager # [phone] documented in this encounter Plan of Treatment [...] Blood Gas Historical (11/07/2014 9:13 AM EDT) [facility] gist Method Time Signature POC pH 7.35 7.35 [...] assumes a normal MCHC. POC Bgas Loc Unified Communications Engineer [facility] Specimen Anatomical Collection Method Collection Time Receive d Time (Source) Location / / Volume Laterality Blood specimen 11/07/2014 9:13 AM 015 2:35 (specimen) EDT PM EDT Mil Brnadon MD CHEMISTRY ORDERABLES Performing Organization Address City/State/[place] [address] [facility] EKG 12 Lead (11/07/2014 8:35 AM EDT) Component Value Ref Range Test Analysis Performed Pathologis t Method Time At Signature Ventricular rate 55 BPM MUSE SYSTEM Atrial Rate 55 BPM MUSE SYSTEM P-R Interval 166 ms MUSE SYSTEM QRS Duration 110 ms MUSE SYSTEM Q-T Interval 476 ms MUSE SYSTEM QTC Calculated 455 ms MUSE SYSTEM (Bezet) Calculated P [place] 12 degrees MUSE SYSTEM Calculated R [place] -5 degrees MUSE SYSTEM Calculated T [place] 27 degrees MUSE SYSTEM INTERPRETATION Sinus bradycardia MUSE SY STEM Otherwise normal ECG No previous ECGs available Confirmed by MD Juan, [facility] ([id number]) on 11/07/2014 12 :58:52 PM Specimen Anatomical Collection Method Collection Time Receive d Time (Source) Location / / Volume Laterality 11/07/2014 8:35 AM 5 EDT 12:58 PM EDT Mil Brandon MD ECG ORDERABLES Performing Organization Address City/[facility]/ZIP Code Phon e Number MUSE SYSTEM documented in this encounter Visit Diagnoses Diagnosis Aortic stenosis - Primary Aortic valve disorders Aortic stenosis Aortic valve disorders Hypertension, essential, benign Essential hypertension, benign Aortic stenosis Aortic valve disorders documented in this encounter Administered Medications Inactive Administered Medications - up to 3 most recent administrations Medication Order MAR Action Action Date Dose Rate Site dextrose 5% and sodium New Bag 11/07/2014 8:30 AM EDT 100 mL/hr 1 00 mL/hr chloride 0.9% infusion 100 mL/hr, Intravenous, CONTINUOUS, Starting on Fri11/07/14 at 0830, Until Fri11/07/14 at 1436, Cath (Day of Procedure) fentaNYL 50 mcg/mL multi-dose Given 11/07/2014 9:04 AM EDT 50 mc g Left Arm injection ONCE PRN, Starting on Fri11/07/14 at 0904, Until Fri11/07/14 at 0935, Intra-Operative (Intra-Procedure), Routine heparin (porcine) injection Given 11/07/2014 9:12 AM EDT 2,000 Units ONCE PRN, Starting on Fri11/07/14 at 0912, Until Fri11/07/14 at 0935, Cath (Intra-Procedure), Routine midazolam (PF) (VERSED) 1 mg/mL Given 11/07/2014 9:04 AM EDT 1 m g Left Arm multi-dose injection ONCE PRN, Starting on Fri11/07/14 at 0904, Until Fri11/07/14 at 0935, Cath (Intra-Procedure), Routine sodium chloride 0.9% New Bag 11/07/2014 10:01 AM 200 mL/hr 200 mL /hr Left Arm infusion EDT 200 mL/hr, Intravenous, CONTINUOUS, Starting on Fri11/07/14 at 1015, Until Fri11/07/14 at 1414, Cath (Recovery-Hospital Unit) documented in this encounter Active and Recently Administered Medications Times are shown in EDT. Continuous Medication Order 11/05/2014 11/06/2014 11/07/2014 dextrose 5% and sodium chloride 0.9% infusion (CANCELED) 0830 (New Bag - Provider: Martine Paula RN) 100 mL/hr, at 100 mL/hr, Intravenous, CO NTINUOUS, Starting Fri11/07/14 at 0830, Until Fri11/07/14 at 1436, Cath (Day of Procedure) sodium chloride 0.9% infusion () 1001 (New Bag - Provider: Stephanie Asif RN - Comment: over 4 hours, 800 ml total) 200 mL/hr, at 200 mL/hr, Intravenous, CO NTINUOUS, Starting Fri11/07/14 at 1015, Until Fri11/07/14 at 1414, Cath (Recovery-Hospital Unit) PRN Medication Order 11/05/2014 11/06/2014 11/07/2014 fentaNYL 50 mcg/mL multi-dose injection (CANCELED) 0904 (Given - Provider: Jacky Bassett RN) ONCE PRN, Starting Fri11/07/14 at 0904, U ntil Fri11/07/14 at 0935, Intra-Operative (Intra-Procedure), Routine heparin (porcine) injection (CANCELED) 911 (Given - Provider: Mil Hernández MD) ONCE PRN, Starting 11/07/14 at 0912, U ntil 11/07/14 at 0935, Cath (Intra- Procedure), Routine midazolam (PF) (VERSED) 1 mg/mL multi-dose injection (CANCELED) 903 (Given - Provider: Jacky Bassett RN) ONCE PRN, Starting 11/07/14 at 0904, U ntil 11/07/14 at 0935, Cath (Intra- Procedure), Routine documented in this encounter Care Teams Membership Correspondent Relationship Specialty Start Date End Date Jacky Nur MD PCP - General 06/26/10 02/20/[address] [place] [phone] documented as of this encounter
[2022-07-08 09:21] LABS: PSA, Diagnostic 6.9 ng/mL (<=4.5)
== END 2022-07-05 02:40 | disposition home or self-care (01) ==
LOC: LBO 02:39
PROVIDERS: PCP Internal Medicine; Visit Provider Urology
DX: C61 Malignant neoplasm of prostate (principal)
CPT/HCPCS: 36415; 84153

== ENCOUNTER 2023-01-03 02:14 | Outpatient (CLI) | payer MEDICARE, SELFPAY ==
[2023-01-03 19:41] LABS: PSA, Diagnostic 7.7 ng/mL (<=6.5)
== END 2023-01-03 02:15 | disposition home or self-care (01) ==
PROVIDERS: PCP Internal Medicine; Visit Provider Urology
DX: C61 Malignant neoplasm of prostate (principal)
CPT/HCPCS: 36415; 84153

== ENCOUNTER 2023-02-28 18:29 | Outpatient (REF) | payer MEDICARE, SELFPAY ==
[2023-02-28 16:15] LABS: ALT 12 U/L (16-63); AST 19 U/L (15-37); Albumin 4.3 g/dL (3.4-5.0); Alkaline Phosphatase 76 U/L (46-116); Anion Gap 10.1 mmol/L (3-11); BUN 19 mg/dL (7-18); Bilirubin, Total 0.6 mg/dL (0.2-1.0); CO2 25.9 mmol/L (21.0-32.0); CREATININE 1.4 mg/dL (0.70-1.30); Calcium 9.4 mg/dL (8.5-10.1); Calculated LDL 95 mg/dL (<100); Chloride 106 mmol/L (98-107); Cholesterol 179 mg/dL (<200); Estimated GFR 54.07 (mL/min/1.73m2); Glucose 122 mg/dL (74-106); HDL Cholesterol 74 mg/dL (40-60); Potassium 4.4 mmol/L (3.5-5.1); Sodium 142 mmol/L (136-145); Total Protein 7.4 g/dL (6.4-8.2); Triglyceride 52 mg/dL (<150)
== END 2023-02-28 18:30 | disposition home or self-care (01) ==
LOC: NCHCN 18:29
PROVIDERS: PCP Internal Medicine; Visit Provider Physician Assistant
DX: I10 Essential (primary) hypertension (principal); E78.5 Hyperlipidemia, unspecified
CPT/HCPCS: 80053; 80061

== ENCOUNTER → 2023-04-24 08:07 | Outpatient (BNVA) | payer MEDICARE, SELFPAY | PROVIDERS: PCP Physician Assistant; Referring Provider Physician Assistant; Visit Provider Physical Therapy Assistant | DX: Z12.11 Encounter for screening for malignant neoplasm of colon (principal) ==

== ENCOUNTER 2023-05-01 09:44 | Day surgery (SDC) | payer MEDICARE, SELFPAY ==
--- NOTE | 2023-04-30 20:55 | W.PM.DSUDISC ---
Date of service: 05/01/23 Time of Service: 12:09 Discharge Plan Disposition Patient Disposition: Home Condition: Good Discharge Details Reason For Visit: screening colonoscopy Attending Provider: Jh Zhang Primary Care Provider: Yosi Graham Home Meds and New Rx's Prescriptions: Continued lisinopril 30 mg tablet 30 mg PO DAILY pravastatin 40 mg tablet 40 mg PO DAILY aspirin 81 mg tablet,delayed release (DR/EC) 81 mg PO DAILY amlodipine 2.5 mg tablet 2.5 mg PO DAILY prednisolone acetate 1 % drops,suspension 1 drp ophthalmic (eye) QID Discontinued bisacodyl [Dulcolax (bisacodyl)] 5 mg tablet,delayed release (DR/EC) 5 mg PO ONCE Qty: 4 0RF Rx Instructions: Take per colonoscopy instructions provided by ordering providers office polyethylene glycol 3350 17 gram/dose powder 17 g PO ONCE Qty: 238 0RF Rx Instructions: Take per colonoscopy instructions provided by ordering providers office Discharge Instructions Instructions: Colorectal Polyps (GEN) Additional Instructions: Mehul, we were able to do your colonoscopy today without any difficulty. In total, I found 5 polyps and removed them all. There were medium to large sized, and all will be sent off for a formal pathology review. Once I have the results of that pathology, I will be in touch with my next recommendations. If you have any questions in the meantime, please do not hesitate to call. 1. If tolerated, consume a soft, low fiber diet for 1-2 days. 2[address] Do not drive, drink alcohol, operate machinery, make critical decisions, or do activities that require coordination or balance for 24 hours. 3. Because air was put into your colon during the procedure, expelling air from your rectum (passing gas or farting) is normal. 4. You may not have a bowel movement for 1-3 days because of the colonoscopy prep. This is normal. 5. Go directly to the emergency room if you notice any of the following: Develop chills (warm to touch), or if you have a thermometer and your temperature is above 101 Difficulty breathing or difficultly swallowing Persistent vomiting Severe abdominal pain, other than gas cramps Severe chest pain Black, tarry stools Any bleeding ? exceeding one tablespoon 6. Call your physician if the site where your intravenous was started becomes red, swollen, painful, and warm to touch. 7. Your physician has reviewed your pre-procedure medications. Please continue to take those medications as previously ordered. You will be given specific information/education regarding any changes to your medications before leaving. Activity:: Activity as Tolerated Diet:: As Tolerated Discharge Orders Discharge Orders: Discharge Order (Routine); Ordered 04/30/23 Ordered By: Jh Zhang DS: Diagnosis Discharge Diagnosis (1) Screen for colon cancer: Status: Acute Asessment and Plan: Follow-up on polypectomy results
--- NOTE | 2023-04-30 20:58 | W.COLOREPORT ---
Date of service: 05/01/23 Time of Service: 12:10 Colonoscopy Report Date of procedure: 05/01/23 Pre-op diagnosis general: Screening colonoscopy Post-op diagnosis procedure note: other (Colon and rectal polyps) Procedure: Colonoscopy with polypectomy Surgeon: Jh Zhang Anesthesia Type: General:No Airway Estimated blood loss (mL): 10 Pathology: other (Rectal polyps x3, colon polyp at 65 cm and colon polyp at 55 cm) Complications: None Disposition: same day Indications: Mehul is 72 years old. He is here for his next screening colonoscopy Prep: Miralax/Dulcolax Procedure Start Time: 11:41 Procedure End Time: 12:01 Retraction Time: 10 Findings: Rectal polyps x3, 0.5 cm polyp at 65 cm, 0.75 cm polyp at 55 cm Procedure Description: After the induction of monitored anesthetic care, and with the patient in left lateral decubitus position, I began by performing an external anorectal exam.? Perineum and skin were normal, as was the anal verge.? There was no evidence of external hemorrhoids.? Next, I performed a digital rectal exam.? I did not appreciate any abnormal findings.? Next, I advanced a colonoscope into the rectal vault.? I performed retroflexion.? This appeared normal.? Approximately 7 cm up from the anal verge were 2 rectal polyps. One was approximately 1 cm, the other was less than 0.25 cm. Both of these were removed with snare polypectomy. Just a few centimeters beyond this was a third rectal polyp. This was also about 0.5 cm. This was also retrieved with snare polypectomy. There was minimal bleeding from the sites. The 2 larger polyps were a bit pedunculated, and the third smaller polyp was sessile. Using insufflation, I then advanced the colonoscope beyond the rectal folds and into the sigmoid colon before advancing towards the cecum.? The quality of the prep was excellent.? The scope was noted to be in the cecum by identification of the ileocecal valve and appendiceal orifice.? I then began withdrawing the colonoscope using repeated irrigation as necessary for full evaluation of the colonic mucosa. Around 65 cm from the anal verge I identified a 0.5 cm polyp. ?It appeared sessile in character. ?I was able to remove this with a cold snare polypectomy. ?I examined the site, and there was minimal bleeding. Similarly, around 55 cm from the anal verge was another polyp. This was approximately 0.75 cm. This was slightly pedunculated. It was removed with cold snare polypectomy with minimal bleeding. Once this was completed, I continued to withdraw the scope and examine the remainder of the colonic mucosa.?Once the scope was withdrawn to the level of the rectum, great care was taken to examine portions of the rectal folds.? Finally, the scope was withdrawn and the patient was brought to the same-day surgery recovery unit as the anesthetic wore off. ?The findings and instructions were shared with the patient prior to discharge.
[2023-05-01 10:01] VITALS: BP 144/87; PULSE 80; RESP 17; TEMP 36.5; O2SAT 99
[2023-05-01] MEDS: Lactated Ringers 1,000 ML 80 ML IV (10:17)
--- NOTE | 2023-05-01 11:21 | ANES.PREOP_ITS ---
General Info Date of Service Date Performed: 05/01/23 Height: 5 ft 6 in Weight: 93 kg Body Mass Index (BMI): 33.0 Surgical Procedure: Operation Date: 05/01/23 11:20 Proposed Procedure Side Surgeon p Neyda Zhang MD Meds Allergies and Home Medications Allergies Allergy/AdvReac Type Severity Reaction Status Date / Time No Known Allergies Allergy Verified 05/01/23 10:08 Home Medication Medication Instructions Recorded amlodipine 2.5 mg tablet 2.5 mg PO DAILY 01/09/23 aspirin 81 mg tablet,delayed 81 mg PO DAILY 01/09/23 release lisinopril 30 mg tablet 30 mg PO DAILY 01/09/23 pravastatin 40 mg tablet 40 mg PO DAILY 01/09/23 prednisolone acetate 1 % eye 1 drp ophthalmic (eye) QID 01/09/23 drops,suspension Current Visit Medications: Current Medications Generic Name Dose Route Start Last Admin Trade Name Freq PRN Reason Stop Dose Admin Hyoscyamine Sulfate 0.125 mg 04/30/23 20:59 Hyoscyamine 0.125 Mg Sl/Oral/Chew SL 05/30/23 20:58 DIRECTED PRN Ringer's Solution 1,000 mls @ 80 mls/hr 05/01/23 06:00 05/01/23 10:17 IV 05/01/23 23:59 80 mls/hr INFUSION DEE DEE Administration IV Miscellaneous Supplies 1 each 05/01/23 06:00 Iv Access IV 05/01/23 23:59 DIRECTED DEE DEE Ondansetron HCl 4 mg 04/30/23 20:59 Ondansetron 4 Mg/2 Ml Vial IVP 05/30/23 20:58 Q4H PRN PRN Nausea / Vomiting Sodium Chloride 0 ml 05/01/23 06:00 Normal Saline Flush 10 Ml Syr IV 05/01/23 23:59 PRN PRN Sodium Chloride 0 ml 05/01/23 06:00 Normal Saline 10 Ml Vial IJ 05/01/23 23:59 DIRECTED PRN Sterile Water 0 ml 05/01/23 06:00 Water,Injection,Sterile 10 Ml Vial IJ 05/01/23 23:59 DIRECTED PRN PFSH Active Problems Active Problems: Problem Status Onset Code Screen for colon cancer Z12.11 History of colonoscopy Z98.890 Heart disease I51.9 Hyperlipidemia E78.5 Hypertriglyceridemia E78.1 Prostate cancer C61 Hypertension I10 Medical History Medical History H/O aortic valve stenosis H/O echocardiogram Last 05/08/22 at [facility] [place] History of diagnostic ultrasound Hx of rectal ultrasound Surgical History Surgical History H/O aortic valve replacement s/p AVR/Ascending aortic replacement 2015. [facility]. H/O vitrectomy Vitrectomy and retinectomy, Right eye. [facility] ~ January 2022 Tobacco Smoking/Tobacco Use Status: Never Alcohol Alcohol Intake: current Alcohol intake frequency: a few times a week Substance Use Substance use: Never Substance use type: does not use Vital Signs and Lab Results Vital Signs Most Recent Vital Signs in EMR: Most Recent Vital Signs Temp Pulse Resp BP Pulse Ox 36.5 C 80 17 144/87 H 99 05/01/23 10:01 05/01/23 10:01 05/01/23 10:01 05/01/23 10:01 05/01/23 10:01 Lab Results Blood Type / Crossmatch: No Data to Display Complete Blood Count: No Data to Display Complete Metabolic Panel: No Data to Display Liver Function Panel: No Data to Display Coagulation Panel: No Data to Display Cardiac Panel: No Data to Display Arterial Blood Gas: No Data to Display Venous Blood Gas: No Data to Display Pancreas Panel: No Data to Display Thyroid Panel: No Data to Display Infectious Disease: No Data to Display Blood Cultures: No Data to Display Toxicology Panel: No Data to Display Imaging and Studies Imaging and Studies Study information below may be from another EMR and interpreted by another provider. Please see original notes in EMR for more complete details. Echocardiogram Summary: 05/08/2022: EF 66%, Post Ascending aorta replacem ent/Aortic valve replacement, Anesthesia Assessment and Plan Anesthesia History Personal History: No History of Anesthesia Complications Family History: No Family History of Anesthesia Complications Exercise Tolerance Exercise Tolerance: Metabolic Equivalents>4 Pertinent Negatives Pertinent Negatives: No Symptoms of GERD and No Major Pulmonary Symptoms or Complaints Cardiac & Pulmonary Exam Cardiac Exam: Normal S1/S2 Heart Sounds Pulmonary Exam: Clear Bilateral Breath Sounds Implantable Cardiac Device Does patient have a Pacemaker or an ICD?: No Airway Exam Known Difficult Airway: No Mallampati Class: 1 Mouth Opening: Normal (> 3cm) Thyromental Distance: Greater than 3 cm Facial Hair: Full Quintero Neck Range of Motion: Full ROM Neck Circumference: Normal Teeth Condition: Normal Dentition ASA Classification ASA Score: ASA 3 Emergency Case?: No NPO Status NPO Status: NPO Clears >2 hours, Solids >8 hours Anesthesia Plan Resuscitation Status: Full Code Anesthesia Technique: General Anesthesia Airway Planned: Natural Airway Monitors Used: Standard Monitors
[2023-05-01 11:22] VITALS: BMI 33.0
--- NOTE | 2023-05-01 11:43 | BOWEL_PTH ---
PATIENT: Po Matthews LOC: [facility] U#:[id number] AGE/SX: 72/M ROOM: RE05/01/[address]: Jh Zhang MD : 1950 BED: DIS: 05/01/2023 SPEC #: [id number] RECD: 05/01/23 13:21 STATUS: GEM REQ #: [id number] TATIANA: 05/01/23 11:[address]: Jh Zhang DEPT: Surgical Specimen RECD BY: Caitlyn Burleson ENTERED: 05/01/23 13:22 SP TYPE: Bowel OTHR DR: Yosi Graham Tissues: 1 - BIOPSY BOWEL 2 - BIOPSY BOWEL 3 - BIOPSY BOWEL Procedures: GROSS AND MICRO LEVEL 4 Comments: [id number]
[2023-05-01 12:12] VITALS: BP 108/73; PULSE 82; RESP 16; TEMP 36.4; O2SAT 95
--- NOTE | 2023-05-01 12:25 | W.ANESPOSTOP ---
Postoperative Evaluation Date, Time and Location Date Performed: 05/01/23 Time Performed: 12:25 Patient Location: Day Surgery Unit Vital Signs Most Recent Imported Vital Signs: Most Recent Vital Signs Temp Pulse Resp BP Pulse Ox 36.4 C L 82 16 108/73 95 05/01/23 12:12 05/01/23 12:12 05/01/23 12:12 05/01/23 12:12 05/01/23 12:12 Pain Score Most Recent Pain Score: Most Recent Pain Score Pain Level 0 05/01/23 12:12 Assessment Mental Status: Awake (Alert & Oriented to Patient Baseline) Airway and Respiratory Function: Patent airway with normal (patient baseline) respiratory exam Cardiovascular Function: Hemodynamically Stable Hydration Status: Adequately Hydrated Nausea & Vomiting: No Nausea or Vomiting Pain: Pt. Denies Any Pain Peripheral Nerve Block: Patient did not receive a nerve block
[2023-05-01 12:38] VITALS: BP 133/84; PULSE 74; RESP 16; TEMP 36.4; O2SAT 99
== END 2023-05-01 12:53 | disposition home or self-care (01) ==
PROVIDERS: PCP Physician Assistant; Visit Provider Surgery
PROC: 0DJD8ZZ Inspection of Lower Intestinal Tract, Via Natural or Artificial Opening Endoscopic (ICD-10-PCS; CPT 45378; principal; 2023-05-01 11:15)
DX: Z12.11 Encounter for screening for malignant neoplasm of colon (principal); Z86.010 Personal history of colon polyps; D37.5 Neoplasm of uncertain behavior of rectum; D12.4 Benign neoplasm of descending colon
CPT/HCPCS: 45385; 88305

== ENCOUNTER 2023-08-15 04:03 | Outpatient (CLI) | payer MEDICARE, SELFPAY | END 2023-08-15 04:04 | disposition home or self-care (01) | LOC: LBO 04:03 | PROVIDERS: PCP Physician Assistant; Visit Provider Urology | DX: C61 Malignant neoplasm of prostate (principal) | CPT/HCPCS: 36415; 84154 ==

== ENCOUNTER 2024-01-14 01:53 | Outpatient (CLI) | payer MEDICARE, SELFPAY ==
[2024-01-16 17:09] LABS: PSA, Ultrasensitive 20.8 ng/mL (<= 6.5)
== END 2024-01-14 01:54 | disposition home or self-care (01) ==
LOC: LBO 01:55
PROVIDERS: PCP Physician Assistant; Visit Provider Urology
DX: R97.20 Elevated prostate specific antigen [PSA] (principal)
CPT/HCPCS: 36415; 84153; 81003

== ENCOUNTER 2024-01-20 12:37 | Outpatient (REF) | payer MEDICARE, SELFPAY | END 2024-01-20 12:38 | disposition home or self-care (01) | LOC: LBN 12:37 | PROVIDERS: PCP Physician Assistant; Visit Provider Urology | DX: N30.80 Other cystitis without hematuria (principal); R97.20 Elevated prostate specific antigen [PSA] | CPT/HCPCS: 87086 ==

== ENCOUNTER 2024-03-01 11:41 | Outpatient (REF) | payer MEDICARE, SELFPAY ==
[2024-03-01 15:48] LABS: HCT 47.5 % (40.0-50.0); HGB 15.3 g/dL (13.5-17.5); MCH 28.6 pg (27.0-33.0); MCHC 32.2 % (32.0-36.0); MCV 89 fL (80-95); MPV 10.5 fL (8.0-11.0); Platelet Count 185 10^3/uL (130-400); RBC 5.35 10^6/uL (4.36-5.78); RDW-SD 42.3 fL; WBC 6.74 10^3/uL (4.4-10.8)
[2024-03-01 15:59] LABS: ALT 14 U/L (16-63); AST 19 U/L (15-37); Albumin 4.3 g/dL (3.4-5.0); Alkaline Phosphatase 76 U/L (46-116); Anion Gap 11.4 mmol/L (3-11); BUN 16 mg/dL (7-18); Bilirubin, Total 0.62 mg/dL (0.2-1.0); CO2 23.6 mmol/L (21.0-32.0); CREATININE 1.2 mg/dL (0.70-1.30); Chloride 108 mmol/L (98-107); Estimated GFR 64.65 (mL/min/1.73m2); Glucose 86 mg/dL (74-106); Sodium 143 mmol/L (136-145); Total Protein 7.4 g/dL (6.4-8.2)
[2024-03-01 16:11] LABS: Calculated LDL 101 mg/dL (<100); Cholesterol 179 mg/dL (<200); HDL Cholesterol 68 mg/dL (40-60); Triglyceride 50 mg/dL (<150)
== END 2024-03-01 11:42 | disposition home or self-care (01) ==
LOC: NCHCN 11:41
PROVIDERS: PCP Physician Assistant; Visit Provider Physician Assistant
DX: I10 Essential (primary) hypertension (principal); E78.5 Hyperlipidemia, unspecified
CPT/HCPCS: 80053; 80061; 85027; 86735

== ENCOUNTER 2024-04-03 08:24 | Emergency (ER) | payer MEDICARE, SELFPAY ==
[2024-04-03 08:27] VITALS: BP 170/81; PULSE 65; RESP 12; TEMP 36.8; O2SAT 99
--- NOTE | 2024-04-03 08:36 | ED.GENADUL_ITS ---
Discharge Plan Disposition Patient Disposition: Home Discharge Details Clinical Impression: Inguinal hernia, right Primary Care Provider: Yosi Graham ED Provider: Mil Salguero Home Meds and New Rx's Prescriptions: Continued lisinopril 30 mg tablet 30 mg PO DAILY pravastatin 40 mg tablet 40 mg PO DAILY aspirin 81 mg tablet,delayed release (DR/EC) 81 mg PO DAILY prednisolone acetate 1 % drops,suspension 1 drp ophthalmic (eye) QID amlodipine 5 mg tablet 5 mg PO DAILY Patient Comments: TAKE ONE TABLET BY MOUTH EVERY DAY Discharge Instructions Instructions: Groin hernias Additional Instructions: You are seen in the emergency department for your abdominal pain. You are found to have a hernia on your CAT scan. As we discussed this is an outpouching of your intestines that can extend down into your scrotum. Please return to the emergency department if you develop worsening pain nausea vomiting or any changes to your skin which could represent entrapment of your hernia. Please call the general surgery clinic number to arrange for outpatient follow-up with the surgical team. For your pain please take medications as follows: 1. Take acetaminophen (Tylenol), 1,000 mg (two 500 mg tabs) every 6 hours [2. Take ibuprofen (Advil), 200 mg every 8 hours.] Referrals: [facility] [Provider Group] - 1 week Discharge Data Discharge Date/Time-TO BE ENTERED AT DEPARTURE: 04/03/24 10:53 HPI General Date/Time Provider Initiated Documentation: 04/03/24 08:36 . HPI Narrative: MDM This is an overall very well-appearing normothermic and not tachycardic 73-year-old male with right lower quadrant tenderness concerning for the possibility of appendicitis for which patient will receive labs and CT scan. No pain out of proportion to suggest Dena's gangrene. No obvious hernia on exam and no signs of incarceration so I did not feel that the patient required a lactate. Patient does report his right lower quadrant pain radiates down into his testicle. His testicle has no abnormal lie and he has an intact cremasteric reflex and given that his pain began in his abdomen I am not suspicious for testicular torsion so I do not feel that the patient requires an emergent ultrasound. No rash to abdomen to suggest zoster. No right upper quadrant tenderness to suggest acute cholecystitis. No diarrhea nor left lower quadrant tenderness to suggest diverticulitis. Patient is not an alcoholic and did not have epigastric tenderness so I am not suspicious for pancreatitis I did not send a lipase. No flank pain or hematuria so doubt ureterolithiasis. No black nor bloody stools so doubt GI bleed. Patient has not been vomiting and had a bowel movement this morning and has had no past abdominal surgeries so I am not suspicious for small bowel obstruction. No dysuria nor frequency to suggest UTI. No abnormal urethral discharge to suggest sexually transmitted infection. Patient has had a colonoscopy within the past year with no signs of malignancy so not concern for colon cancer. Will reassess following labs and imaging. Patient declines analgesia at this point in time. 9:30 AM CBC lacks anemia thrombocytopenia and leukocytosis. Comprehensive metabolic panel with no OSMIN. No hyperglycemia. No acute LFT nor electrolyte abnormalities. 10:[address] scan showed bilateral fat-containing inguinal hernias. No signs of strangulation or incarceration. I met with the patient. His pain was well- controlled. I gave him return indications including nausea vomiting and any skin changes which could represent incarceration and strangulation or small bowel obstruction. I asked health community relations rep Arlene to have the patient seen by the general surgery team in the next week. I advised patient to wear supportive undergarments. Patient understood his return indications and he was discharged with an empiric trial of expectant outpatient management. 3:23 PM I received a call from radiology, Dr. Alicea. He had overread the patient's CT scan and was concerned for increased streaking and fat stranding in the right inguinal canal concerning for primary testicular abnormality. He recommended testicular ultrasound. I called the patient at home. We have crime scene evidence technician available. Patient will be here in 1 hour. He will benefit from reassessment and scrotal ultrasound. I updated the nurse practitioner caring for the patient. Chronic conditions affecting the care of the patient: Hyperlipidemia hypertension History obtained from an outside historian: N/A External record review: N/A Medications: N/A Social determinants of health affecting disposition: N/A Management discussed with: N/A Treatment/interventions considered: N/A Response to therapies provided: N/A HPI This is a 73-year-old male history of hypertension and hyperlipidemia arrived to the emergency department via private vehicle in setting of right lower quadrant pain. Patient notes that his pain began several days ago. He had had similar pains in the past that resolved spontaneously. Today he notes that his pain did not improve and began radiating down into his left testicle. He denies dysuria and frequency. He has never had a urinary tract infection. He denies abnormal urethral discharge. He had a colonoscopy less than a year ago. He is never had any abdominal surgeries. He denies fevers nausea rashes to abdomen chest pain or shortness of breath. He had a normal bowel movement this morning. He denies nausea and vomiting. He occasionally drinks ethanol but denies routine tobacco and illicits. Exam General: Well-appearing in no acute distress speaking in complete sentences. Head: Normocephalic, atraumatic. Eye: Extraocular eye movements intact. No conjunctival injection. No scleral icterus. Ear, nose, mouth, throat: Grossly normal inspection. Normal voice, handling se cretions normally. Neck: Trachea midline. Cardiovascular: Well-perfused distal extremities. Regular rate and rhythm Respiratory: Nonlabored respiration. Clear lungs bilaterally Gastrointestinal: Nondistended abdomen. Soft. Minimal right lower quadrant tenderness. No guarding. No obvious hernias. : Uncircumcised penis. Mild right-sided testicular tenderness. No pain out of proportion. No abnormal lie. Intact cremasteric reflex. No signs of paraphimosis Musculoskeletal: No edema. Moving all 4 extremities spontaneously. Skin: Normal for age and race, grossly normal temperature and turgor. No acute rash. Neurologic: Alert and appropriate, no apparent acute deficits. Psychiatric: Mood and manner are appropriate. Grooming and personal hygiene are appropriate. Related Data Home Medications ?Medication ?Instructions ?Recorded ?Confirmed aspirin 81 mg tablet,delayed 81 mg PO DAILY 01/09/23 04/03/24 release lisinopril 30 mg tablet 30 mg PO DAILY 01/09/23 04/03/24 pravastatin 40 mg tablet 40 mg PO DAILY 01/09/23 04/03/24 prednisolone acetate 1 % eye 1 drp ophthalmic (eye) QID 01/09/23 04/03/24 drops,suspension amlodipine 5 mg tablet 5 mg PO DAILY 04/03/24 04/03/24 Allergies Allergy/AdvReac Type Severity Reaction Status Date / Time No Known Allergies Allergy Verified 04/03/24 08:29 General Stated Complaint: Abd Prob JERRI: 3 Course Vital Signs Vital signs: Vital Signs Temperature 36.8 C 04/03/24 08:27 Pulse 65 04/03/24 08:27 Respiratory Rate 12 08/31/24 08:27 Blood Pressure 170/81 H 04/03/24 08:27 Pulse Oximetry 99 04/03/24 08:27 Temperature 36.8 C 04/03/24 08:27 Temperature Source Skin 04/03/24 08:27 Pulse 65 04/03/24 08:27 Respiratory Rate 12 04/03/24 08:27 Respiratory Effort Normal, Non-Labored 04/03/24 08:31 Blood Pressure 170/81 H 04/03/24 08:27 Blood Pressure Position Sitting 04/03/24 08:27 Pulse Oximetry 99 04/03/24 08:27 Oxygen Delivery Method Room Air 04/03/24 08:27 Oxygen Flow Rate 0 04/03/24 08:27 Pain Level 4 04/03/24 08:27 Medical Decision Making Quality:SDOH Health Related Social Needs: No Data to Display PFSH All Active Problems (Updated 04/03/24 @ 10:42 by Mil Salguero MD) Inguinal hernia, right (Acute) Screen for colon cancer (Acute) History of colonoscopy (Chronic) 2012 Heart disease (Acute) Hyperlipidemia (Acute) Hypertriglyceridemia (Acute) Prostate cancer (Chronic) Hypertension (Chronic) Medical History (Updated 04/03/24 @ 10:42 by Mil Salguero MD) History of diagnostic ultrasound Hx of rectal ultrasound H/O aortic valve stenosis H/O echocardiogram Last 05/08/[address] [facility] [place] Surgical History H/O vitrectomy Vitrectomy and retinectomy, Right eye. [facility] ~ January 2022 H/O aortic valve replacement s/p AVR/Ascending aortic replacement 2015. [facility]. Social History (Updated 04/24/23 @ 09:04 by MAYE Peter) Smoking/Tobacco Use Status: Never Smoking risk assessment performed?: Yes Alcohol Intake: current Alcohol Intake frequency: a few times a week Drug use: Never Substance use type: does not use Housing: house Current gender identity: male Do you feel safe at home: Yes Do you feel safe in your relationship?: Yes PAWSS Have you Been Recently Intoxicated or Drunk Within the Last 30 days?: No Have you Ever Experienced Previous Episodes of Alcohol Withdrawal?: No Have you ever Experienced Withdrawal Seizures?: No Have you ever Experienced Delirium Tremens(DT)s?: No Have you ever undergone Alcohol Rehabilitation Treatment (i.e, inpt ot outpatient treatment programs)?: No Have you ever Experienced Blackouts?: No Have you ever Combined Alcohol with other Downers within the last 90 days?: No Have you ever Combined Alcohol with any other Substance of Abuse during the last 90 days?: No Positive Blood Alcohol level on Presentation? [PCS.BAL]: No Evidence of Increased Autonomic Activity (i.e. HR>120, tremor, sweating, agitation, nausea)?: Yes Result: 1
--- NOTE | 2024-04-03 08:45 | DI.CT_ITS ---
Exam(s) CT ABDOMEN PELVIS W EXAM: CT ABDOMEN PELVIS W CLINICAL HISTORY: Right lower quadrant pain radiating to testicle. TECHNIQUE: Imaging Protocol: Axial computed tomography images with coronal and sagittal reformatted images were created and reviewed CONTRAST MATERIAL: Intravenous: Omnipaque-350 100cc Oral: None COMPARISON: No exams were available for comparison FINDINGS: VISUALIZED LUNG BASES: No nodules nor pleural effusions evident. ABDOMEN: There is no ascites. LIVER: There is a 3 millimeter benign-appearing hypodensity in the inferior aspect of the right hepat ic lobe which is probably a small benign cyst. There is also a 9 millimeter well-defined benign-appe aring hypodensity in the liver just above the gallbladder fossa which is most probably also another b enign cyst. There are no ominous focal hepatic lesions. No dilated intrahepatic ducts. GALLBLADDER/BILIARY: No obvious gallbladder pathology. CBD is not dilated. PANCREAS: No evidence of pancreatic mass nor dilatation of the pancreatic duct. SPLEEN: Spleen is not enlarged. No obvious intrasplenic lesions. Splenic and portal veins are paten t. ADRENALS: There are no significant adrenal masses. KIDNEYS:There is a solitary small benign 9 mm cyst in the left kidney appear it there is a larger susana ign cyst in the opposite-right kidney measuring 3.2 x 2.0 cm, also benign and not requiring further i nvestigation. There are no solid renal masses. No obvious calculi nor hydronephrosis no hydroureter . Prostate gland is enlarged and lobulated and indents the bladder base.. ABDOMINAL AORTA: Abdominal aorta is not enlarged. LYMPH NODES: No retroperitoneal nor para-aortic adenopathy. ABDOMINAL WALL: :There is a small fat only containing umbilical hernia. There is streaking within the fat of the right inguinal canal. Left inguinal canal appears unremarkable. GI: There is no evidence of bowel obstruction, free air, nor abscess. PELVIS: GI: The appendix is difficult to identify as an independent structure.There is no evidence of obvious appendicitis. There some diverticuli in the sigmoid but no evidence of obvious acute diverticulitis . LYMPH NODES: There is no intrapelvic nor inguinal adenopathy. REPRODUCTIVE: There lobulations off the anterior aspect of the prostate which indents the bladder bas e. URINARY BLADDER: As above. The bladder is not distended. There are no radiopaque calculi in the uri nary bladder lumen. OSSEOUS: Node invagination superior endplate of L2 noted. No true compression fracture. No significant osseous lesions. IMPRESSION: 1. There is some abnormal streaking in the fat within the right inguinal canal. There are no bowel l oops within the right inguinal canal. There is a small fat containing inguinal hernia. Contains onl y fat and no bowel loops. There is no bowel obstruction. 2. If there is any clinical consideration for right testicular abnormality than scrotal/testicular ul trasound would be recommended. 3. Lobulated prostate gland which indents the bladder base. Appropriate prostate gland testing recom mended. 4. The appendix cannot be identified as a distinct structure. No obvious evidence of acute appendici tis. 5. There few sigmoid diverticuli but no evidence of acute diverticulitis. First read by [facility]. Final report and recommendations called by myself to ER physician 04/03/2024 at 3:10 p.m. RADIATION DOSE DELIVERED: 522.64mGy.cm Total DLP DATA REPOSITORY: All CT scans at this facility are submitted to the National Radiology Data Registry (NRDR) Dose Index Registry (DIR) with the [employer] (ACR). RADIATION OPTIMIZATION: All CT scans at this facility use at least one of these dose optimization te chniques: automated exposure control; mA and/or kV adjustment per patient size (includes targeted exa ms where dose is matched to clinical indication); or iterative reconstruction.
[2024-04-03 09:05] LABS: Abs Immature Grans 0.03 10^3/uL (0.0-0.06); Absolute Basophil Count 0.06 10^3/uL (0.0-0.2); Absolute Eosinophil Count 0.46 10^3/uL (0.0-0.7); Absolute Lymphocyte Count 1.82 10^3/uL (1.2-3.4); Absolute Monocyte Count 0.44 10^3/uL (0.1-0.8); Absolute Neutrophil Count 4.21 10^3/uL (1.2-6.7); Basophils % 0.9 %; Eosinophils % 6.6 %; HGB 15.6 g/dL (13.5-17.5); Immature Grans % 0.4 %; Lymphocytes % 25.9 %; MCH 29.1 pg (27.0-33.0); MCHC 33.2 % (32.0-36.0); MCV 88 fL (80-95); MPV 10.3 fL (8.0-11.0); Monocytes % 6.3 %; Neutrophils % 59.9 %; Platelet Count 173 10^3/uL (130-400); RBC 5.37 10^6/uL (4.36-5.78); RDW-SD 41.8 fL; WBC 7.02 10^3/uL (4.4-10.8)
[2024-04-03 09:16] LABS: ALT 11 U/L (16-63); AST 21 U/L (15-37); Albumin 4.2 g/dL (3.4-5.0); Alkaline Phosphatase 76 U/L (46-116); Anion Gap 8.8 mmol/L (3-11); BUN 11 mg/dL (7-18); Bilirubin, Total 0.78 mg/dL (0.2-1.0); CO2 25.2 mmol/L (21.0-32.0); CREATININE 1.2 mg/dL (0.70-1.30); Calcium 9.4 mg/dL (8.5-10.1); Chloride 104 mmol/L (98-107); Estimated GFR 64.65 (mL/min/1.73m2); Glucose 94 mg/dL (74-106); Sodium 138 mmol/L (136-145); Total Protein 7.7 g/dL (6.4-8.2)
[2024-04-03] MEDS: Omnipaque 350 MG/ML 100 ML BTL IJ (09:41)
--- NOTE | 2024-04-03 10:29 | DI.VRAD_ITS ---
PROCEDURE INFORMATION: Exam: CT Abdomen And Pelvis With Contrast Exam date and time: 04/03/2024 9:02 AM Age: 73 years old Clinical indication: Constipation and other: Right lower quadrant pain radiating to testicle TECHNIQUE: Imaging protocol: Computed tomography of the abdomen and pelvis with contrast. Radiation optimization: All CT scans at this facility use at least one of these dose optimization techniques: automated exposure control; mA and/or kV adjustment per patient size (includes targeted exams where dose is matched to clinical indication); or iterative reconstruction. Contrast material: OMNIAPQUE; Contrast volume: 350 ml; Contrast route: INTRAVENOUS (IV); COMPARISON: No relevant prior studies available. FINDINGS: Liver: There is a 9 mm hypodense lesion segment 4 of the liver, too small to characterize. Gallbladder and biliary ducts: Normal. No calcified stones. No ductal dilation. Pancreas: Normal. No ductal dilation. Spleen: Normal. No splenomegaly. Adrenal glands: Normal. No mass. Kidneys and ureters: At least 2 simple cysts in the interpolar region of the left kidney measuring up to 8 mm. No hydronephrosis on either side. There is a right renal simple cyst measuring 3.2 x 1.9 cm. Stomach and bowel: Diverticulosis of the descending and sigmoid colon. Appendix: No evidence of appendicitis. Intraperitoneal space: Unremarkable. No free air. No significant fluid collection. Vasculature: Pelvic phleboliths. Lymph nodes: Unremarkable. No enlarged lymph nodes. Urinary bladder: Unremarkable as visualized. Reproductive: prostate gland calcifications. Bones/joints: Mild degenerative disease of sacroiliac joints. Minimal degenerative disease of bilateral hip joints. Curvature of the lumbar spine convex the right posterior disc bulges at L4-L5 with mild bony canal stenosis. Schmorl's node of the upper endplate L2. Soft tissues: Bilateral fat containing inguinal hernias. Small fat containing umbilical hernia. IMPRESSION: No acute intra-abdominal process. Dictated and Authenticated by: West Moreira MD. Ordering:GONZÁLEZ Jaeger MD
--- NOTE | 2024-04-03 10:41 | NUR.NOTE ---
Referral faxed to [facility] for right inguinal hernia, in the next couple of weeks. Nursing Note:
[2024-04-03 10:50] VITALS: BP 162/76; PULSE 65; RESP 12; TEMP 36.8; O2SAT 99
== END 2024-04-03 10:53 | disposition home or self-care (01) ==
PROVIDERS: Emergency Provider Emergency Medicine; PCP Physician Assistant
DX: K40.90 Unilateral inguinal hernia, without obstruction or gangrene, not specified as recurrent; E78.5 Hyperlipidemia, unspecified; I10 Essential (primary) hypertension
CPT/HCPCS: 36415; 80053; 99285; 74177; 85025; J3490

== ENCOUNTER 2024-04-03 16:29 | Emergency (ER) | payer MEDICARE, SELFPAY ==
--- NOTE | 2024-04-03 16:30 | DI.US_ITS ---
Exam(s) US SCROTUM EXAM: US SCROTUM CLINICAL HISTORY: r/o testicular torsion TECHNIQUE: Ultrasound of the testes performed using grayscale, color, and Doppler imaging.: No supin e stent COMPARISON: No exams were available for comparison FINDINGS: RIGHT HEMISCROTUM: There is a small right hydrocele The right testicle exhibits normal size and echo architecture with no evidence of intratesticular mas s. Vascular flow was demonstrated within the right testicle, including arterial waveforms. The right epididymis appearance is symmetric with that on the opposite side There are no significant epididymal head cysts. There is right-sided varicocele and part of the varicocele is thrombosed, this apparently correspondi ng to the patient's area of pain. LEFT HEMISCROTUM: There is a small left hydrocele The left testicle exhibits normal size and echo architecture with no evidence of intratesticular mass . Vascular flow is demonstrated within the left testicle, including arterial waveforms. The epididymis appears symmetric with the opposite side and there are no significant epididymal head cysts. There is also a left-sided varicocele which does not appear thrombosed. IMPRESSION: 1. No evidence of testicular mass nor testicular torsion. 2. There are bilateral varicoceles with thrombosis of part of the right varicocele. This apparently corresponds to patient's area of pain and most probably explains the asymmetric fat streaking within the right inguinal canal as seen on today's CT scan. 3. There are small bilateral hydroceles. Report called by myself to ER provider 04/03/2024 5:45 p.m. DATA REPOSITORY:
[2024-04-03 16:31] VITALS: BP 153/80; PULSE 72; RESP 12; TEMP 36; O2SAT 98
[2024-04-03 17:56] VITALS: BP 148/75; PULSE 69; RESP 15; O2SAT 98
--- NOTE | 2024-04-03 17:58 | NUR.NOTE ---
Referral given to Care Management to send to [facility] [place] for thrombosed hemorrhoid, currently being treated for prostate cancer, in 1 to 2 weeks. Nursing Note:
--- NOTE | 2024-04-03 18:01 | ED.GENADUL_ITS ---
Discharge Plan Disposition Patient Disposition: Home Discharge Details Clinical Impression: Bilateral varicoceles Primary Care Provider: Yosi Graham ED Provider: Jennifer Waters Home Meds and New Rx's Prescriptions: Continued lisinopril 30 mg tablet 30 mg PO DAILY pravastatin 40 mg tablet 40 mg PO DAILY aspirin 81 mg tablet,delayed release (DR/EC) 81 mg PO DAILY prednisolone acetate 1 % drops,suspension 1 drp ophthalmic (eye) QID amlodipine 5 mg tablet 5 mg PO DAILY Patient Comments: TAKE ONE TABLET BY MOUTH EVERY DAY Discharge Instructions Instructions: Varicocele Additional Instructions: Please follow-up with your [facility] urologist for further evaluation/management of a varicocele. Call first thing Friday morning to schedule an appointment. There are bilateral varicoceles; the varicocele on your right is thrombosed. I recommend that you wear supportive underwear. Tylenol or ibuprofen may be used as needed for discomfort. Follow up as scheduled for your prostate cancer treatments. Return to emergency care if you develop fever/chills, new vomiting, worsening abdominal pain, increasing swelling in your testicles or redness, difficulty urinating, or if you are very worried and need to be rechecked again immediately Discharge Data Discharge Date/Time-TO BE ENTERED AT DEPARTURE: 04/03/24 18:09 HPI General Date/Time Provider Initiated Documentation: 04/03/24 16:30 . HPI Narrative: Po is a 73-year-old male with history of prostate cancer recently diagnosed, HTN, HLD, and inguinal hernia who presents to the emergency department today for ultrasound. He was seen earlier in the day for evaluation of right-sided lower abdominal pain that radiates into right testicle. There was stranding noted on CT scan, he was advised to return for ultrasound. Po reports he has had right lower quadrant abdominal pain radiating into the right testicle for the last 3 days, today noted some swelling and discomfort in his testicle. There is a small mass on the right testicle that is tender to palpation. He denies associated fever/chills, nausea/vomiting, change in bowel movement, difficulty urinating, recent lifting/straining. He does have a urologist at [facility] he can follow-up with. Physical exam remarkable for approximately quarter size tender mass in the right testicle. No erythema/obvious swelling noted. No other changes to external genitalia. Patient is alert and oriented, no acute distress. Ultrasound significant for right sided thrombosed varicocele and left-sided varicocele. There are small bilateral hydroceles. I did review patient's previous workup earlier today , there was asymmetrical fat streaking within the right inguinal canal on CT scan that corresponds with a thrombosed right varicocele. Labs were all reassuring. History and presentation consistent with bilateral varicoceles with thrombosis to the right varicocele. Recommend close follow-up with urology for further evaluation/management. As patient is [place] [facility] [place] recommend following up with his current team. Reviewed symptomatic management and red flags indicating need for return to emergency care. Po voices agreement with plan of care. Related Data Home Medications ?Medication ?Instructions ?Recorded ?Confirmed aspirin 81 mg tablet,delayed 81 mg PO DAILY 01/09/23 04/03/24 release lisinopril 30 mg tablet 30 mg PO DAILY 01/09/23 04/03/24 pravastatin 40 mg tablet 40 mg PO DAILY 01/09/23 04/03/24 prednisolone acetate 1 % eye 1 drp ophthalmic (eye) QID 01/09/23 04/03/24 drops,suspension amlodipine 5 mg tablet 5 mg PO DAILY 04/03/24 04/03/24 Allergies Allergy/AdvReac Type Severity Reaction Status Date / Time No Known Allergies Allergy Verified 04/03/24 08:29 General Stated Complaint: Recheck JERRI: 2 Review of Systems Narrative: see HPI Exam Const General: cooperative, healthy appearing, comfortable, no acute distress, well developed and well groomed Nutritional Appearance: average body habitus Resp Effort & Inspection: normal respiratory effort and able to speak in complete sentences Penis: normal penis Meatus: meatus normal Scrotum: scrotal mass on the right tender and no scrotal swelling Testes: normal Male genitals images: 2 1. palpable vericocele Course Vital Signs Vital signs: Vital Signs Temperature 36.0 C L 04/03/24 16:31 Pulse 72 04/03/24 16:31 Respiratory Rate 12 04/03/24 16:31 Blood Pressure 153/80 H 04/03/24 16:31 Pulse Oximetry 98 04/03/24 16:31 Temperature 36.0 C L 04/03/24 16:31 Temperature Source Skin 04/03/24 16:31 Pulse 69 04/03/24 17:56 Pulse Rhythm Regular 04/03/24 17:56 Pulse Strength Normal 04/03/24 17:56 Respiratory Rate 15 04/03/24 17:56 Respiratory Effort Normal, Non-Labored 04/03/24 17:56 Respiratory Depth Normal 04/03/24 17:56 Respiratory Pattern Normal 04/03/24 17:56 Blood Pressure 148/75 H 04/03/24 17:56 Blood Pressure Mean 99 04/03/24 17:56 Blood Pressure Position Sitting 04/03/24 17:56 Pulse Oximetry 98 04/03/24 17:56 Oxygen Delivery Method Room Air 04/03/24 17:56 Oxygen Flow Rate 0 04/03/24 17:56 Pain Level 4 04/03/24 16:31 Medical Decision Making Quality:SDOH Health Related Social Needs: 2 No Data to Display PFSH All Active Problems (Updated 04/03/24 @ 17:58 by Jennifer Oneal) Bilateral varicoceles (Acute) Inguinal hernia, right (Acute) Screen for colon cancer (Acute) History of colonoscopy (Chronic) 2012 Heart disease (Acute) Hyperlipidemia (Acute) Hypertriglyceridemia (Acute) Prostate cancer (Chronic) Hypertension (Chronic) Medical History (Updated 04/03/24 @ 17:58 by Jennifer Oneal) History of diagnostic ultrasound Hx of rectal ultrasound H/O aortic valve stenosis H[place] [facility] [place] H/O vitrectomy Vitrectomy and retinectomy, Right eye. [facility] ~ January 2022 H/O aortic valve replacement s/p AVR/Ascending aortic replacement 2015. Bovine. Social History (Updated 04/24/23 @ 09:04 by MAYE Peter) Smoking/Tobacco Use Status: Never Smoking risk assessment performed?: Yes Alcohol Intake: current Alcohol Intake frequency: a few times a week Drug use: Never Substance use type: does not use Housing: house Current gender identity: male Do you feel safe at home: Yes Do you feel safe in your relationship?: Yes
== END 2024-04-03 18:09 | disposition home or self-care (01) ==
PROVIDERS: Emergency Provider Nurse Practitioner Family; PCP Physician Assistant
DX: I86.1 Scrotal varices (principal); C61 Malignant neoplasm of prostate; I10 Essential (primary) hypertension; E78.5 Hyperlipidemia, unspecified; Z79.82 Long term (current) use of aspirin; Z79.899 Other long term (current) drug therapy
CPT/HCPCS: 36415; 80053; 99284; 99285; 74177; 76870; 85025; 99283; J3490

== ENCOUNTER 2024-04-08 10:37 | Outpatient (CLI) | payer MEDICARE, SELFPAY ==
[2024-04-08 10:48] LABS: Abs Immature Grans 0.03 10^3/uL (0.0-0.06); Absolute Basophil Count 0.05 10^3/uL (0.0-0.2); Absolute Eosinophil Count 0.19 10^3/uL (0.0-0.7); Absolute Lymphocyte Count 1.65 10^3/uL (1.2-3.4); Absolute Monocyte Count 0.51 10^3/uL (0.1-0.8); Absolute Neutrophil Count 5.25 10^3/uL (1.2-6.7); Basophils % 0.7 %; Eosinophils % 2.5 %; HCT 47.7 % (40.0-50.0); HGB 15.7 g/dL (13.5-17.5); Immature Grans % 0.4 %; Lymphocytes % 21.5 %; MCHC 32.9 % (32.0-36.0); MCV 88 fL (80-95); MPV 10.2 fL (8.0-11.0); Monocytes % 6.6 %; Neutrophils % 68.3 %; Platelet Count 164 10^3/uL (130-400); RBC 5.42 10^6/uL (4.36-5.78); RDW 13.1 % (11.8-14.1); RDW-SD 42.5 fL; WBC 7.68 10^3/uL (4.4-10.8)
[2024-04-08 11:10] LABS: ALT 8 U/L (16-63); AST 17 U/L (15-37); Albumin 4.2 g/dL (3.4-5.0); Alkaline Phosphatase 76 U/L (46-116); Anion Gap 9.2 mmol/L (3-11); BUN 11 mg/dL (7-18); Bilirubin, Total 0.77 mg/dL (0.2-1.0); CO2 25.8 mmol/L (21.0-32.0); CREATININE 1.4 mg/dL (0.70-1.30); Calcium 9.4 mg/dL (8.5-10.1); Chloride 103 mmol/L (98-107); Estimated GFR 53.74 (mL/min/1.73m2); Glucose 94 mg/dL (74-106); Potassium 4.1 mmol/L (3.5-5.1); Sodium 138 mmol/L (136-145); Total Protein 7.6 g/dL (6.4-8.2)
[2024-04-12 16:02] LABS: Testosterone, Total 536 ng/dL (240-950)
== END 2024-04-08 10:38 | disposition home or self-care (01) ==
LOC: LBO 10:39
PROVIDERS: PCP Physician Assistant; Visit Provider Radiology Radiation Oncology
DX: C61 Malignant neoplasm of prostate (principal)
CPT/HCPCS: 36415; 80053; 84153; 84403; 85025

== ENCOUNTER → 2024-04-23 13:49 | Outpatient (BNVA) | payer MEDICARE, SELFPAY | PROVIDERS: PCP Physician Assistant; Referring Provider Physician Assistant; Visit Provider Surgery | DX: Z12.11 Encounter for screening for malignant neoplasm of colon (principal) ==

== ENCOUNTER 2024-04-30 09:41 | Day surgery (SDC) | payer MEDICARE, SELFPAY ==
[2024-04-30 10:28] VITALS: BP 137/82; PULSE 62; RESP 16; TEMP 36.6; O2SAT 99
[2024-04-30] MEDS: Lactated Ringers 1,000 ML 80 ML IV (10:51)
[2024-04-30 11:42] VITALS: BMI 32.5
--- NOTE | 2024-04-30 11:42 | W.ANESPRE ---
General Info Date of Service Date Performed: 04/30/24 Height: 5 ft 6 in Weight: 91.6 kg Body Mass Index (BMI): 32.5 Surgical Procedure: Operation Date: 04/30/24 11:55 Proposed Procedure Side Surgeon p Flexible Sigmoidoscopy Darius CALABRESE MD [facility] Allergies and Home Medications Allergies Allergy/AdvReac Type Severity Reaction Status Date / Time No Known Allergies Allergy Verified 04/30/24 10:22 Home Medication ?Medication ?Instructions ?Recorded aspirin 81 mg tablet,delayed 81 mg PO DAILY 01/09/23 release lisinopril 30 mg tablet 30 mg PO DAILY 01/09/23 pravastatin 40 mg tablet 40 mg PO DAILY 01/09/23 amlodipine 5 mg tablet 5 mg PO DAILY 04/03/24 bicalutamide 50 mg tablet 50 mg PO DAILY 04/23/24 ketorolac 0.5 % eye drops 1 drp ophthalmic (eye) QID 04/23/24 sodium phosphates 19 gram-7 197 ml KS ONCE 04/30/24 gram/118 mL enema Current Visit Medications: Current Medications Generic Name Dose Route Start Last Admin Trade Name Freq PRN Reason Stop Dose Admin Ringer's Solution 1,000 mls @ 80 mls/hr 04/30/24 06:00 04/30/24 10:51 IV 04/30/24 23:59 80 mls/hr INFUSION DEE DEE Administration IV Miscellaneous Supplies 1 each 04/30/24 06:00 Iv Access IV 04/30/24 23:59 DIRECTED DEE DEE Sodium Chloride 0 ml 04/30/24 06:00 Normal Saline Flush 10 Ml Syr IV 04/30/24 23:59 PRN PRN Sodium Chloride 0 ml 04/30/24 06:00 Normal Saline 10 Ml Vial IJ 04/30/24 23:59 DIRECTED PRN Sterile Water 0 ml 04/30/24 06:00 Water,Injection,Sterile 10 Ml Vial IJ 04/30/24 23:59 DIRECTED PRN PFSH Active Problems Active Problems: Problem Status Onset Code Bilateral varicoceles Acute I86.1 Inguinal hernia, right Acute K40.90 Screen for colon cancer Acute Z12.11 History of colonoscopy Chronic Z98.890 Heart disease Acute I51.9 Hyperlipidemia Acute E78.5 Hypertriglyceridemia Acute E78.1 Prostate cancer Chronic C61 Hypertension Chronic I10 Medical History Medical History History of diagnostic ultrasound Hx of rectal ultrasound H/O aortic valve stenosis H/O echocardiogram Last 05/08/22 at [facility] [place] Surgical History Surgical History H/O vitrectomy Vitrectomy and retinectomy, Right eye. [facility] ~ January 2022 H/O aortic valve replacement s/p AVR/Ascending aortic replacement 2015. Bovine. Tobacco Smoking/Tobacco Use Status: Never Alcohol Alcohol Intake: current Alcohol intake frequency: a few times a week Substance Use Substance use: Never Substance use type: does not use Vital Signs and Lab Results Vital Signs Most Recent Vital Signs in EMR: Most Recent Vital Signs Temp Pulse Resp BP Pulse Ox 36.6 C 62 16 137/82 99 04/30/24 10:28 04/30/24 10:28 04/30/24 10:28 04/30/24 10:28 04/30/24 10:28 Lab Results Blood Type / Crossmatch: No Data to Display Complete Blood Count: White Blood Count 7.68 10^3/uL (4.4-10.8) 04/08/24 10:44 Red Blood Count 5.42 10^6/uL (4.36-5.78) 04/08/24 10:44 Hemoglobin 15.7 g/dL (13.5-17.5) 04/08/24 10:44 Hematocrit 47.7 % (40.0-50.0) 04/08/24 10:44 Platelet Count 164 10^3/uL (130-400) 04/08/24 10:44 Complete Metabolic Panel: Sodium 138 mmol/L (136-145) 04/08/24 10:44 Potassium 4.1 mmol/L (3.5-5.1) 04/08/24 10:44 Chloride 103 mmol/L (98-107) 04/08/24 10:44 Carbon Dioxide 25.8 mmol/L (21.0-32.0) 04/08/24 10:44 BUN 11 mg/dL (7-18) 04/08/24 10:44 Creatinine 1.4 mg/dL (0.70-1.30) H 04/08/24 10:44 Est GFR (CKD-EPI 2020) 53.74 (mL/min/1.73m2) 04/08/24 10:44 Calcium 9.4 mg/dL (8.5-10.1) 04/08/24 10:44 Albumin 4.2 g/dL (3.4-5.0) 04/08/24 10:44 Glucose 94 mg/dL (74-106) 04/08/24 10:44 Liver Function Panel: Alanine Aminotransferase (ALT/SGPT) 8 U/L (16-63) L 04/08/24 10:44 Aspartate Amino Transf (AST/SGOT) 17 U/L (15-37) 04/08/24 10:44 Coagulation Panel: No Data to Display Cardiac Panel: No Data to Display Arterial Blood Gas: No Data to Display Venous Blood Gas: No Data to Display Pancreas Panel: No Data to Display Thyroid Panel: No Data to Display Infectious Disease: No Data to Display Blood Cultures: No Data to Display Toxicology Panel: No Data to Display Imaging and Studies Imaging and Studies Study information below may be from another EMR and interpreted by another provider. Please see original notes in EMR for more complete details. Echocardiogram Summary: 05/08/2022: EF 66%, Post Ascending aorta replacement/Aortic valve replacement, Anesthesia Assessment and Plan Anesthesia History Personal History: No History of Anesthesia Complications Family History: No Family History of Anesthesia Complications Exercise Tolerance Exercise Tolerance: Metabolic Equivalents>4 Pertinent Negatives Pertinent Negatives: No Symptoms of GERD Cardiac & Pulmonary Exam Cardiac Exam: Normal S1/S2 Heart Sounds Pulmonary Exam: Clear Bilateral Breath Sounds Implantable Cardiac Device Does patient have a Pacemaker or an ICD?: No Airway Exam Known Difficult Airway: No Mallampati Class: 1 Mouth Opening: Normal (> 3cm) Thyromental Distance: Greater than 3 cm Neck Range of Motion: Full ROM Neck Circumference: Normal Teeth Condition: Normal Dentition ASA Classification ASA Score: ASA 2 Emergency Case?: No NPO Status NPO Status: NPO Clears >2 hours, Solids >8 hours Anesthesia Plan Resuscitation Status: Full Code Anesthesia Technique: General Anesthesia Airway Planned: Natural Airway Monitors Used: Standard Monitors
[2024-04-30 12:37] VITALS: BP 105/81; PULSE 64; RESP 16; TEMP 36.2; O2SAT 97
--- NOTE | 2024-04-30 12:44 | W.ANESPOSTOP ---
Postoperative Evaluation Date, Time and Location Date Performed: 04/30/24 Time Performed: 12:44 Patient Location: Day Surgery Unit Vital Signs Most Recent Imported Vital Signs: Most Recent Vital Signs Temp Pulse Resp BP Pulse Ox 36.6 C 62 16 137/82 99 04/30/24 10:28 04/30/24 10:28 04/30/24 10:28 04/30/24 10:28 04/30/24 10:28 Pain Score Most Recent Pain Score: Most Recent Pain Score Pain Level 0 04/30/24 10:28 Assessment Mental Status: Awake (Alert & Oriented to Patient Baseline) Airway and Respiratory Function: Patent airway with normal (patient baseline) respiratory exam Cardiovascular Function: Hemodynamically Stable Hydration Status: Adequately Hydrated Nausea & Vomiting: No Nausea or Vomiting Pain: Pt. Denies Any Pain Peripheral Nerve Block: Patient did not receive a nerve block
--- NOTE | 2024-04-30 12:50 | ROE_ITS ---
Date of service: 04/30/24 Time of Service: 12:50 Operative Note Operative Note Refer to Anesthesia Record Procedure Description: Operative Note PRE-OP DIAGNOSIS: Abnormal finding on imaging POST-OP DIAGNOSIS: same PROCEDURE: Flexible sigmoidoscopy SURGEON: Darius CALABRESE ANESTHESIA TYPE: MAC Refer to Anesthesia Record PATHOLOGY: none sent COMPLICATIONS: None Patient was transported to: PACU Patient's condition: stable Indications: Patient had findings on PET scan concerning for lesion in the rectum. Procedure Description: After obtaining informed consent, patient was brought back to the operating room. He was turned on his left side and connected to the monitors. Timeout was performed. Propofol was administered by the nurse texturing machine fixer. I began by performing a digital rectal exam. This was remarkable for a residual hemorrhoidal skin tag. I then inserted the colonoscope. I advanced to 50 cm from the anal verge. At this point there was quite a bit of stool burden and I stopped. I withdrew along the sigmoid colon. I did not notice any mucosal abnormalities or gross lesions. I withdrew into the rectum. I closely evaluated the rectal keyes. No other abnormalities were noted. I did retro flex. This again revealed the hemorrhoidal skin tag. I decompressed the sigmoid and the rectum and withdrew the scope entirely. Patient tolerated well. He went to recovery in stable condition. Disposition: Patient will be discharged home later today. He can follow-up as needed.
[2024-04-30 13:07] VITALS: BP 127/89; PULSE 55; RESP 18; TEMP 36.4; O2SAT 99
== END 2024-04-30 13:15 | disposition home or self-care (01) ==
PROVIDERS: PCP Physician Assistant; Visit Provider Surgery
PROC: 0DJD8ZZ Inspection of Lower Intestinal Tract, Via Natural or Artificial Opening Endoscopic (ICD-10-PCS; CPT 45330; principal; 2024-04-30 11:45)
DX: Z12.11 Encounter for screening for malignant neoplasm of colon (principal); K64.8 Other hemorrhoids
CPT/HCPCS: 45330; 00123; J2704

== ENCOUNTER 2024-07-12 18:39 | Outpatient (REF) | payer MEDICARE, SELFPAY ==
[2024-07-12 16:02] LABS: Bilirubin Negative (Negative); Blood Trace-intact (Negative); Clarity Clear (Clear); Glucose Negative (Negative); Ketones Negative (Negative); Leukocyte Esterase Negative (Negative); Nitrite Negative (Negative); Specific Gravity 1.015 (1.005-1.025); Urobilinogen 0.2 mg/dL (Up to 0.2); pH 5.5 (5-8)
[2024-07-12 16:23] LABS: Bacteria Rare HPF (Negative); Epithelial Cells Negative HPF (Negative)
[2024-07-12 16:24] LABS: C & S Indicated? No; Casts Negative LPF (Negative); Crystals Negative HPF (Negative); Mucus Negative (Negative); Other Cells Negative (Negative)
== END 2024-07-12 18:40 | disposition home or self-care (01) ==
LOC: LBN 18:39
PROVIDERS: PCP Physician Assistant; Visit Provider Radiology Radiation Oncology
DX: R30.0 Dysuria (principal)
CPT/HCPCS: 81003; 81015

== ENCOUNTER 2024-08-16 03:12 | Outpatient (CLI) | payer MEDICARE, SELFPAY ==
[2024-08-18 13:08] LABS: PSA, Ultrasensitive 0.03 ng/mL (<= 6.5)
== END 2024-08-16 03:13 | disposition home or self-care (01) ==
LOC: LBO 03:12
PROVIDERS: PCP Physician Assistant; Visit Provider Radiology Radiation Oncology
DX: C61 Malignant neoplasm of prostate (principal)
CPT/HCPCS: 36415; 84153; 84403

== ENCOUNTER 2024-10-24 03:19 | Emergency (ER) | payer MEDICARE, SELFPAY ==
[2024-10-24 03:21] VITALS: BP 146/98; PULSE 80; RESP 16; TEMP 36.8; O2SAT 100
--- NOTE | 2024-10-24 03:22 | W.ED.GENAD ---
Discharge Plan Disposition Patient Disposition: Home Condition: Good Discharge Details Clinical Impression: Hip pain, left, Knee pain, left Primary Care Provider: Yosi Graham ED Provider: Jacky Max Meds and New Rx's Prescriptions: Continued ketorolac 0.5 % drops 1 drp ophthalmic (eye) QID bicalutamide 50 mg tablet 50 mg PO DAILY lisinopril 30 mg tablet 30 mg PO DAILY pravastatin 40 mg tablet 40 mg PO DAILY aspirin 81 mg tablet,delayed release (DR/EC) 81 mg PO DAILY amlodipine 5 mg tablet 5 mg PO DAILY Patient Comments: TAKE ONE TABLET BY MOUTH EVERY DAY sodium phosphates 19-7 gram/118 mL enema 197 ml MS ONCE tamsulosin 0.4 mg capsule 0.4 mg PO DAILY Patient Comments: TAKE ONE CAPSULE BY MOUTH EVERY DAY bromfenac 0.09 % drops 1 drp ophthalmic (eye) BID Patient Comments: INSTILL 1 DROP IN THE RIGHT EYE TWO TIMES A DAY calcium citrate 1,000 mg tablet 1,000 mg PO DAILY cholecalciferol (vitamin D3) [Vitamin D3] 25 mcg (1,000 unit) capsule 25 mcg PO DAILY Discharge Instructions Additional Instructions: You were seen in the ED for left hip and knee pain that has been worsening since your last Lupron injection. There is no suggestion of infection and x-rays did not reveal any significant bony pathology. Lupron can as a side effect because bone and joint pain. For the weekend take ibuprofen 600 mg 3 times a day with food. Contact your oncologist to discuss further on Friday. Return to ED for any fever, inability to ambulate, leg swelling, other concerns. Discharge Data Discharge Date/Time-TO BE ENTERED AT DEPARTURE: 10/24/24 04:20 HPI General Mode of arrival: ambulatory. Date/Time Provider Initiated Documentation: 10/24/24 03:21. Limitations to Documentation: no limitations. Information obtained by: patient and RN notes reviewed. HPI Narrative: Patient presents to ED with complaint of left hip and knee pain. Patient reports a fall back in August. Landed on his right side with significant bruising at that time. Was not seen or evaluated. He is also getting Lupron injections for prostate cancer. He has had some left-sided discomfort which he describes as an achy pain. Since getting his third injection of Lupron the pain in the left hip and left knee has become worse. He is able to ambulate. He denies any back pain. He denies any numbness or weakness. He denies any bladder or bowel dysfunction. He did try ibuprofen the night before. Mak decided to come into ED as the pain has been interfering with his ability to sleep. Denies any other trauma other than the fall back in August. Related Data Home Medications ?Medication ?Instructions ?Recorded ?Confirmed aspirin 81 mg tablet,delayed 81 mg PO DAILY 01/09/23 10/24/24 release lisinopril 30 mg tablet 30 mg PO DAILY 01/09/23 10/24/24 pravastatin 40 mg tablet 40 mg PO DAILY 01/09/23 10/24/24 amlodipine 5 mg tablet 5 mg PO DAILY 04/03/24 10/24/24 bicalutamide 50 mg tablet 50 mg PO DAILY 04/23/24 04/30/24 ketorolac 0.5 % eye drops 1 drp ophthalmic (eye) QID 04/23/24 04/30/24 sodium phosphates 19 gram-7 197 ml MS ONCE 04/30/24 04/30/24 gram/118 mL enema bromfenac 0.09 % eye drops 1 drp ophthalmic (eye) BID 10/24/24 10/24/24 calcium citrate 1,000 mg tablet 1,000 mg PO DAILY 10/24/24 10/24/24 cholecalciferol (vitamin D3) 25 25 mcg PO DAILY 10/24/24 10/24/24 mcg (1,000 unit) capsule (Vitamin D3) tamsulosin 0.4 mg capsule 0.4 mg PO DAILY 10/24/24 10/24/24 Allergies Allergy/AdvReac Type Severity Reaction Status Date / Time No Known Allergies Allergy Verified 10/24/24 03:30 General JERRI: 2 Exam Narrative Exam Narrative: Const: WDWN male in NAD. VS per triage. HEENT: NC/AT. Normal facial exam. Neck: Supple. Trachea midline. Lungs: Normal respiratory effort. Neuro: A+O x 3. Normal speech, mentation, gait. Cranial nerves II - XII grossly intact. No gross motor or sensory deficit. Ext: No C/C/E. Normal ROM of all extremities. No erythema, warmth, swelling noted to joints. Medical Decision Making Patient presenting to ED with worsening left hip and knee pain. He has no back pain. He has no neurological symptoms and his neurologic exam is normal. I do not believe this is related to radiculopathy or back problem. He is ambulatory with no obvious limp or difficulty. There was no swelling, warmth, erythema. I do not believe he has evidence of septic joint or even evidence of inflammatory arthritis. No evidence of lower extremity edema, calf tenderness, popliteal tenderness and complaints not consistent with DVT. Suspect pain is related to the Lupron injections as this is a fairly common side effect. Patient given IM ketorolac and x-rays of the left hip and knee were obtained. X-rays per my read with no obvious significant bony pathology, no fracture. Patient reports improvement with the ketorolac. Will have patient continue ibuprofen over the weekend and discuss symptoms with his oncologist on Friday. Return precautions provided. Imaging Data Radiologic Study: Attestation: I personally reviewed and interpreted this imaging study as follows: Imaging: X-Ray My impression: See [facility] All Active Problems H/O echocardiogram (Acute) [place] 05/08/22 [place] [facility] [place] History of diagnostic ultrasound (Acute) Hx of rectal ultrasound Knee pain, left (Acute) Hip pain, left (Acute) History of colonoscopy (Chronic) 2012 Heart disease (Acute) Hypertriglyceridemia (Acute) Medical History Hyperlipidemia Prostate cancer Hypertension H/O aortic valve stenosis Surgical History H/O flexible sigmoidoscopy (~04/30/24) H/O vitrectomy Vitrectomy and retinectomy, Right eye. [facility] ~ January 2022 H/O aortic valve replacement s/p AVR/Ascending aortic replacement 2015. [place]. Social History Smoking/Tobacco Use Status: Never Smoking risk assessment performed?: Yes Alcohol Intake: current Alcohol Intake frequency: a few times a week Drug use: Never Substance use type: does not use Housing: house Current gender identity: male Do you feel safe at home: Yes Do you feel safe in your relationship?: Yes
--- NOTE | 2024-10-24 03:30 | DI.RAD_ITS ---
Exam(s) XR KNEE LT 3V AP,LAT,SINA EXAM: XR KNEE LT 3V AP,LAT,SINA CLINICAL HISTORY: worsening pain. TECHNIQUE: 2D digital imaging was performed. Three views. COMPARISON: No exams were available for comparison FINDINGS: BONES: No acute fracture is present. No bony destructive lesion is seen. Small enthesophyte at tib ial tubercle. JOINTS: The knee is normally aligned. No joint effusion is seen. The joint spaces are maintained. M inimal spurring at the articular aspect of the patella. SOFT TISSUE: Normal. IMPRESSION: No acute abnormality. DATA REPOSITORY: RADIATION DOSE DELIVERED:
--- NOTE | 2024-10-24 03:30 | DI.RAD_ITS ---
Exam(s) XR HIP LT COMPLETE AP PELVIS EXAM: XR HIP LT COMPLETE AP PELVIS CLINICAL HISTORY: worsening pain. TECHNIQUE: 2D digital imaging was performed. Two views. COMPARISON: CT CT ABDOMEN PELVIS W from 04/03/2024 FINDINGS: BONES: No acute fracture is present. No bony destructive lesion is seen. Small enthesophytes at the iliac wings. JOINTS: No dislocation present. The SI joints and pubic symphysis are intact. Hip joint spaces are ma intained. Minimal acetabular spurring. SOFT TISSUE: Metallic seeds projecting in the of the prostate. IMPRESSION: No acute abnormality. DATA REPOSITORY: RADIATION DOSE DELIVERED:
[2024-10-24] MEDS: Ketorolac 15 MG/ML VIAL IM (03:51)
--- NOTE | 2024-10-24 04:06 | DI.VRAD_ITS ---
PROCEDURE INFORMATION: Exam: XR Left Knee Exam date and time: 10/24/2024 3:58 AM Age: 74 years old Clinical indication: Other: Worsening pain TECHNIQUE: Imaging protocol: Radiologic exam of the left knee. Views: 3 views. COMPARISON: No relevant prior studies available. FINDINGS: Bones/joints: Three views of the left knee reveal no acute fracture or dislocation. Soft tissues: No gross focal soft tissue abnormality is demonstrated. IMPRESSION: No acute fracture or dislocation seen at the left knee. Dictated and Authenticated by: Davy Pedersen MD. Orderin Mansoor Rico MD
--- NOTE | 2024-10-24 04:08 | DI.VRAD_ITS ---
PROCEDURE INFORMATION: Exam: XR Left Hip Exam date and time: 10/24/2024 3:55 AM Age: 74 years old Clinical indication: Other: Worsening pain TECHNIQUE: Imaging protocol: Radiologic exam of the left hip. Views: 2 or 3 views hip with pelvis when performed. COMPARISON: CT ABDOMEN PELVIS W 04/03/2024 9:02 AM FINDINGS: Tubes, catheters and devices: Surgical clips project over the pubic bones bilaterally. Bones/joints: A frontal view of the pelvis is submitted with a coned-down lateral view of the left hip joint. No acute fracture or dislocation is seen. Soft tissues: No gross focal soft tissue abnormality is demonstrated. IMPRESSION: No acute fracture or dislocation seen in the pelvis or at the left hip joint. Dictated and Authenticated by: Davy Pedersen MD. Orderin Mansoor Rico MD
== END 2024-10-24 04:20 | disposition home or self-care (01) ==
PROVIDERS: Emergency Provider Emergency Medicine; PCP Physician Assistant
DX: M25.562 Pain in left knee (principal); M25.552 Pain in left hip; W19.XXXA Unspecified fall, initial encounter
CPT/HCPCS: 73562; 96372; 99284; 73502; 99283; J1885

== ENCOUNTER 2024-12-14 03:59 | Outpatient (CLI) | payer MEDICARE, SELFPAY ==
[2024-12-14 07:29] LABS: Abs Immature Grans 0.02 10^3/uL (0.0-0.06); Absolute Basophil Count 0.06 10^3/uL (0.0-0.2); Absolute Eosinophil Count 0.26 10^3/uL (0.0-0.7); Absolute Lymphocyte Count 1.16 10^3/uL (1.2-3.4); Absolute Monocyte Count 0.41 10^3/uL (0.1-0.8); Absolute Neutrophil Count 4.51 10^3/uL (1.2-6.7); Basophils % 0.9 %; HCT 42.2 % (40.0-50.0); Immature Grans % 0.3 %; Lymphocytes % 18.1 %; MCH 27.8 pg (27.0-33.0); MCHC 33.2 % (32.0-36.0); MCV 84 fL (80-95); Monocytes % 6.4 %; Neutrophils % 70.3 %; Platelet Count 195 10^3/uL (130-400); RBC 5.04 10^6/uL (4.36-5.78); RDW 13.2 % (11.8-14.1); RDW-SD 40.5 fL; WBC 6.42 10^3/uL (4.4-10.8)
[2024-12-14 07:31] LABS: Bilirubin Negative (Negative); Blood Negative (Negative); Clarity Clear (Clear); Glucose Negative (Negative); Ketones Negative (Negative); Leukocyte Esterase Negative (Negative); Nitrite Negative (Negative); Urobilinogen 0.2 mg/dL (Up to 0.2)
[2024-12-14 08:10] LABS: ALT 11 U/L (16-63); AST 21 U/L (15-37); Albumin 4.5 g/dL (3.4-5.0); Alkaline Phosphatase 88 U/L (46-116); Anion Gap 8.3 mmol/L (3-11); BUN 15 mg/dL (7-18); Bilirubin, Total 0.7 mg/dL (0.2-1.0); CO2 27.7 mmol/L (21.0-32.0); CREATININE 1.2 mg/dL (0.70-1.30); Calcium 10.3 mg/dL (8.5-10.1); Chloride 102 mmol/L (98-107); Estimated GFR 64.25 (mL/min/1.73m2); Glucose 107 mg/dL (74-106); Sodium 138 mmol/L (136-145)
[2024-12-16 18:38] LABS: PSA, Ultrasensitive 0.08 ng/mL (<= 6.5)
[2024-12-20 09:38] LABS: Testosterone, Total 11 ng/dL (240-950)
== END 2024-12-14 04:00 | disposition home or self-care (01) ==
LOC: LBO 03:59
PROVIDERS: PCP Physician Assistant; Visit Provider Radiology Radiation Oncology
DX: R30.0 Dysuria (principal); C61 Malignant neoplasm of prostate
CPT/HCPCS: 36415; 80053; 84153; 84403; 81003; 85025

== ENCOUNTER 2025-01-14 00:17 | Outpatient (CLI) | payer MEDICARE, SELFPAY ==
--- NOTE | 2025-01-14 13:30 | DI.MRI_ITS ---
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 TECHNIQUE: Multiplanar multisequence MRI of the Lumbar spine was performed. COMPARISON: CT CT ABDOMEN PELVIS W from 04/03/2024 CR,XR XR HIP LT COMPLETE AP PELVIS from 10/24/2024 CR,XR XR KNEE LT 3V AP,LAT,SINA from 10/24/2024 FINDINGS: Conus medullaris is at T11-12 level. There is no evidence of conus mass nor subjacent clumping of intrathecal nerve roots to suggest arachnoiditis. The distal thecal sac appears unremarkable.There is no evidence of Tarlov intrasacral cysts nor other significant findings within the sacral canal Bones:No acute fractures. There is Schmorl's node invagination superior endplate L2 vertebral body which was evident on prior abdominal CT scan of March 2024 but still exhibits some mild surrounding bone edema. There are few benign intraosseous hemangiomas in some the vertebral bodies including T11, L1 and L2 vertebral bodies. There is also significant cysts signal abnormality in the visualized T11 through L3 vertebral bodies which is T1 and T2 hypointense and with minimal if any significant signal abnormality on STIR imaging. There is normal marrow signal in the L4 and L5 vertebral bodies with the exception of what is discussed below in the posterior inferior aspect of L5, which is a separate issue. With respect of the signal abnormality at and above the L3 vertebral bodies, this may be an infiltrative pattern such as seen with osteoblastic neoplasm/metastatic disease and conditions like marrow fibrosis or sclerosis. With respect to the individual disc levels... T12-L1: No significant disc herniation nor spinal canal stenosis. No foraminal stenosis. L1-2: There is mild disc space narrowing. Schmorl's node invagination noted in the superior endplate of L2, as described above. Modic type sub endplate marrow changes on both sides of this disc space noted. There is no significant disc herniation or central canal stenosis and there is no significant foraminal stenosis at this level. Facet joints unremarkable. L2-3: Mild-moderate uniform disc space narrowing. Some increased T2 signal is noted at the level the nucleus pulposis. There is no disc herniation or central canal stenosis. No significant facet arthrosis. No evidence of foraminal stenosis. L3-4: This level exhibits mild disc space narrowing, slightly more so on the left side where there also lateral left-sided osteophytes. There is mild annular bulging which extends with some posterior osteophytic ridging into the exiting neural foramina. There is no posterior disc herniation and central canal dimensions are lower normal. There is annular bulging into the floor of the exiting left neural foramen with only minimal foraminal stenosis. Slightly more prominent foraminal stenosis is noted on the right side where there is mild posterior osteophytic ridging in the floor of the exiting right neural foramen. There does not, however, appear to be tight foraminal stenosis. L4-5: Normal disc height. Posteriorly there is symmetrical annular bulging. Mild central canal stenosis due to annular bulging and short AP dimensions the pedicles. The annular bulging extends into the floor of the exiting neural foramina. There is mild foraminal stenosis on the right side and milder foraminal stenosis on the left side. There is a minimal facet joint degenerative change. There is no listhesis evident at this level. L5-S1: This level exhibits normal disc height but there is normal increased signal in the posterior disc an annulus and mild Modic type 1 sub endplate marrow edema changes overlying this. There is no disc herniation or central canal stenosis at this level facet joints unremarkable and there is no sign ificant foraminal stenosis on either side at this level. Soft tissues: paraspinal soft tissues appear unremarkable. IMPRESSION: 1. There is significant marrow signal abnormality throughout the vertebral bodies of L3 and above up to T11 which is the uppermost aspect of the field of view (and suspected other vertebral bodies higher upper also involved). These vertebral bodies predominantly hypointense on both T1 and T2 imaging (including STIR) and this can be seen with marrow fibrosis/cirrhosis as well as metastatic osteoblastic disease. The fact that there is abrupt non involvement of L4 and L5 vertebral bodies may indicate that this is post radiation change and correlation with any prior radiation treatment is recommended (which has resulted in fatty marrow replacement in the involved vertebral bodies). 2. In the posterior aspect of the L5-S1 disc space there is increased signal in the posterior disc and overlying mild marrow edema in the posterior L5 and posterior upper S1 vertebral bodies. This is probably Modic type 1 marrow change related to disc issues. However, there does not appear to be a si gnificant disc herniation at this level nor central canal stenosis. Correlation with any past medical history to suggest discitis is recommend. There is no evidence of epidural fluid collection nor paraspinal fluid collection at this level (nor elsewhere in the lumbar spine). 3. Mild central canal stenosis at L4-5 level. No tight central canal stenosis. Other findings as above. DATA REPOSITORY:
== END 2025-01-14 00:37 ==
LOC: DI 00:18
PROVIDERS: PCP Physician Assistant; Visit Provider Family Medicine
DX: M21.372 Foot drop, left foot (principal); M48.061 Spinal stenosis, lumbar region without neurogenic claudication
CPT/HCPCS: 72148

== ENCOUNTER 2025-03-14 04:28 | Outpatient (CLI) | payer MEDICARE, SELFPAY ==
[2025-03-14 07:15] LABS: Abs Immature Grans 0.02 10^3/uL (0.0-0.06); HCT 41.6 % (40.0-50.0); HGB 13.7 g/dL (13.5-17.5); Immature Grans % 0.3 %; MCH 28.1 pg (27.0-33.0); MCHC 32.9 % (32.0-36.0); MCV 85 fL (80-95); MPV 10.0 fL (8.0-11.0); Platelet Count 171 10^3/uL (130-400); RBC 4.88 10^6/uL (4.36-5.78); RDW 13.2 % (11.8-14.1); RDW-SD 41.0 fL; WBC 6.72 10^3/uL (4.4-10.8)
[2025-03-14 07:29] LABS: ALT 14 U/L (16-63); AST 15 U/L (15-37); Albumin 4.2 g/dL (3.4-5.0); Alkaline Phosphatase 88 U/L (46-116); Anion Gap 6.7 mmol/L (3-11); BUN 16 mg/dL (7-18); Bilirubin, Total 0.6 mg/dL (0.2-1.0); CO2 28.3 mmol/L (21.0-32.0); Calcium 9.3 mg/dL (8.5-10.1); Chloride 105 mmol/L (98-107); Estimated GFR 64.25 (mL/min/1.73m2); Glucose 109 mg/dL (74-106); Potassium 4.3 mmol/L (3.5-5.1); Sodium 140 mmol/L (136-145); Total Protein 7.6 g/dL (6.4-8.2)
== END 2025-03-14 04:29 | disposition home or self-care (01) ==
LOC: LBO 04:28
PROVIDERS: PCP Physician Assistant; Visit Provider Radiology Radiation Oncology
DX: C61 Malignant neoplasm of prostate (principal)
CPT/HCPCS: 36415; 80053; 84153; 84403; 85025

== ENCOUNTER 2025-06-13 03:31 | Outpatient (CLI) | payer MEDICARE, SELFPAY ==
[2025-06-13 07:25] LABS: Abs Immature Grans 0.01 10^3/uL (0.0-0.06); HCT 41.8 % (40.0-50.0); HGB 13.7 g/dL (13.5-17.5); Immature Grans % 0.2 %; MCH 27.8 pg (27.0-33.0); MCHC 32.8 % (32.0-36.0); MCV 85 fL (80-95); MPV 10.0 fL (8.0-11.0); Platelet Count 196 10^3/uL (130-400); RBC 4.92 10^6/uL (4.36-5.78); RDW 13.2 % (11.8-14.1); RDW-SD 40.8 fL; WBC 5.97 10^3/uL (4.4-10.8)
[2025-06-13 08:06] LABS: ALT 11 U/L (16-63); AST 15 U/L (15-37); Albumin 4.3 g/dL (3.4-5.0); Alkaline Phosphatase 98 U/L (46-116); Anion Gap 9.2 mmol/L (3-11); BUN 16 mg/dL (7-18); Bilirubin, Total 0.7 mg/dL (0.2-1.0); CO2 27.8 mmol/L (21.0-32.0); Calcium 9.7 mg/dL (8.5-10.1); Chloride 102 mmol/L (98-107); Glucose 112 mg/dL (74-106); Potassium 3.8 mmol/L (3.5-5.1); Sodium 139 mmol/L (136-145); Total Protein 8.1 g/dL (6.4-8.2)
== END 2025-06-13 03:32 | disposition home or self-care (01) ==
LOC: LBO 03:31
PROVIDERS: PCP Physician Assistant; Visit Provider Radiology Radiation Oncology
DX: C61 Malignant neoplasm of prostate (principal)
CPT/HCPCS: 36415; 80053; 84153; 84403; 85025